=== PATIENT | male | born 1950 | race Caucasian/White ===

== ENCOUNTER → 2016-11-02 | Outpatient (CLI) | payer MEDICARE ==
--- NOTE | 2016-11-02 17:26 | US ---
EXAMINATION TYPE: US abdomen complete DATE OF EXAM: 11/02/2016 COMPARISON: NONE CLINICAL HISTORY: R10.10 Abdominal Pain. Right abdominal pain; smoker x years EXAM MEASUREMENTS: Liver Length: 10.7 cm Gallbladder Wall: 0.1 cm CBD: 0.4 cm Spleen: 9.2 cm Right Kidney: 10.5 x 5.3 x 4.8 cm Left Kidney: 10.0 x 5.3 x 6.3 cm Pancreas: tail obscured by overlying bowel gas Liver: no masses seen Gallbladder: wnl Evidence for sonographic Fisher's sign: No CBD: wnl Spleen: wnl Right Kidney: No hydronephrosis or masses seen Left Kidney: No hydronephrosis or masses seen Upper IVC: wnl Abd Aorta: size is wnl, but intimal thickening is noted at lower aorta. IMPRESSION: No significant abnormality seen.
== END | disposition home or self-care (01) ==
LOC: RADUSWWP 16:15
PROVIDERS: ATTEND Family Medicine
DX: R10.10 Upper abdominal pain, unspecified (principal)
CPT/HCPCS: 76700

== ENCOUNTER 2017-11-14 08:25 | Day surgery (SDC) | payer MEDICARE, OTHER ==
[2017-11-13 11:48] VITALS: BMI 21.4
[2017-11-14] MEDS ORDERED: LIDOCAINE 1% 20 ML VIAL (10MG/ML) FOR IV START INTRADERMA PRN (08:31)
[2017-11-14] MEDS ORDERED: LACTATED RINGERS 1,000 ML IV SCH (08:45)
[2017-11-14 09:01] VITALS: TEMP 98.2
[2017-11-14] MEDS ORDERED: PROPOFOL 10 MG/ML 20 ML VIAL IV ONE (09:52)
[2017-11-14] MEDS ORDERED: IV FLUID CONTINUATION 1,000 ML IV ONE (10:21)
--- NOTE | 2017-11-14 10:25 | P.PCN ---
Date of Procedure: 11/14/17 Procedure(s) Performed: Procedure: Total colonoscopy. Preoperative diagnosis: Screening for neoplasia. Postoperative diagnosis: Diverticulosis with no evidence of acute diverticulitis , strictures, polyps or cancer. Preparation: HalfLytely prep. Sedation: Was provided by anesthesia. Brief clinical history: The patient is a 67-year-old male who is scheduled for this evaluation for screening for neoplasia because of history of polyps. His last exam was around 5 years ago. The patient has no abdominal complaints, bleeding or anemia. Procedure: With the patient on his left lateral decubitus position and after informed consent and adequate sedation, the perianal area was inspected and it did not show any fissures or fistulas. There were no masses felt on digital rectal examination. The Olympus CFQ 160L video colonoscope was then inserted in the rectum in the usual fashion and advanced to the cecum. There were multiple diverticular orifices seen scattered in the sigmoid with no evidence of acute diverticulitis or strictures. The mucosa appeared healthy. No polyps or tumors were seen. I retroflexed the endoscope in the rectum before the endoscope was withdrawn. The patient tolerated the procedure well. Plan: The patient was reassured. Discussed dietary measures. He will follow up with you as planned and I recommended repeat exam in 5 years.
[2017-11-14 10:37] VITALS: BP 140/80; PULSE 87; RESP 18
== END 2017-11-14 10:56 | disposition home or self-care (01) ==
LOC: ORWHC2ENDO 08:25
DX: Z12.11 Encounter for screening for malignant neoplasm of colon (principal); M19.90 Unspecified osteoarthritis, unspecified site; Z86.010 Personal history of colon polyps; E78.5 Hyperlipidemia, unspecified; F17.200 Nicotine dependence, unspecified, uncomplicated; Z79.82 Long term (current) use of aspirin
CPT/HCPCS: 45378; J2704

== ENCOUNTER 2020-10-21 10:50 | Day surgery (SDC) | payer MEDICARE ==
[2020-10-20 09:37] VITALS: BMI 20.7
[~2020-10-21 10:50] MED LIST: LACTATED RINGERS 1,000 ML IV SCH; MOXIFLOXACIN HCL 0.5% DROPS 3 ML BTL OP PRN; TETRACAINE 0.5% OPHTH (PF) DROPS 4 ML BTL OP PRN; TIMOLOL 0.5% OPHTH DROPS 5 ML BTL OP PRN
[2020-10-21 11:32] VITALS: RESP 16; TEMP 97.6
[2020-10-21] MEDS: PHENYLEPHRINE 2.5% OPHTH DRP 2ML OP PRN ×3 (11:35→11:51)
[2020-10-21] MEDS: CYCLOPENTOLATE 1% OPHTH SOLN 2 ML BTL OP PRN ×3 (11:40→11:53)
[2020-10-21] MEDS ORDERED: fentaNYL (PF) 50 MCG/ML 2 ML AMP ONE (12:15)
[2020-10-21] MEDS ORDERED: MIDAZOLAM 2 MG/2 ML VIAL ONE (12:15)
[2020-10-21] MEDS ORDERED: EPINEPHrine (PF) 0.3 ML in BALANCED SALT IRRIG SOLN COMB2 500 ML IRRIGATION ONE (12:24)
[2020-10-21] MEDS ORDERED: BALANCED SALT IRRIG SOLN COMB2 15 ML IRRIG.SOLN INTRAOCULA ONE (12:25)
[2020-10-21] MEDS ORDERED: LIDOCAINE 1% (PF) 10MG/ML VIAL MISCELLANE ONE (12:25)
[2020-10-21] MEDS ORDERED: DUOVISC KIT (GREEN BOX) INTRAOCULA ONE (12:25)
--- NOTE | 2020-10-21 12:47 | P.OP ---
Date of Procedure: 10/21/20 Preoperative Diagnosis: NS & CS Postoperative Diagnosis: same Procedure(s) Performed: PIOL< OD Implants: MX60E 19.50 Anesthesia: MAC Surgeon: Rufino Suarez Pathology: none sent Condition: stable Disposition: same day Indications for Procedure: blurry vision Operative Findings: no complications
[2020-10-21 13:08] VITALS: BP 116/75; PULSE 64
--- NOTE | 2020-10-22 09:20 | OP ---
OPERATIVE REPORT DATE OF SERVICE: 10/21/2020 SURGEON: Dr. Rufino Suarez PREOPERATIVE DIAGNOSIS: Nuclear sclerosis. Cortical sclerosis. POSTOPERATIVE DIAGNOSIS: Same. OPERATION: Clear cornea phacoemulsification of cataract right/OD eye. ESTIMATED BLOOD LOSS: Zero. SPECIMEN TAKEN: None. NARRATIVE: After obtaining the appropriate consent, the patient was brought to the Operating Room where the patient was placed under cardiac monitoring and prepped and draped in the usual sterile manner. At the 11 o'clock position a 15 degree super sharp blade was used to create a paracentesis followed by instillation of 1% Xylocaine MPF 50:50 mix with BSS into the anterior chamber. This was followed by DuoVisc to stabilize the anterior chamber. At the 9 o'clock position a self-sealing corneal flap incision was created using 2.8 mm anel keratome. A cystotome was used to initiate a continuous tear capsulorrhexis which was completed with the Utrata forceps. A Binkhorst cannula was used to hydrodissect the lens nucleus followed by hydrodelineation. Phacoemulsification of the lens was performed utilizing phacochop in 19.55 seconds at 19% power. The remaining cortical material was removed using the irrigation aspiration mode followed by additional 1% Xylocaine MPF into the anterior chamber followed by viscoelastic to stabilize the capsular bag. A [employer] MX 60E 19.5 diopter posterior chamber lens was placed into the capsular bag without difficulty. The remaining viscoelastic material was removed from the anterior chamber with the irrigation/aspiration. Balanced salt solution was used to normalize the intraocular pressure. The incision was checked for watertight integrity. The patient then received two drops of 0.5% timolol followed by two drops Vigamox, was lightly patched and shielded in the usual manner. There were no complications from the procedure. The patient tolerated the procedure well and was returned to recovery in good condition. MMODL / IJN: [id number] /
== END 2020-10-21 13:29 | disposition home or self-care (01) ==
LOC: OR 10:50
PROVIDERS: ATTEND Ophthalmology
DX: H25.11 Age-related nuclear cataract, right eye (principal); M10.9 Gout, unspecified; M19.90 Unspecified osteoarthritis, unspecified site; H52.13 Myopia, bilateral; H17.9 Unspecified corneal scar and opacity; H25.12 Age-related nuclear cataract, left eye; H52.223 Regular astigmatism, bilateral; H52.4 Presbyopia; Z79.82 Long term (current) use of aspirin; Z98.890 Other specified postprocedural states; Z87.891 Personal history of nicotine dependence
CPT/HCPCS: 66984; C1780; J2250; J0171; J3010; J2001

== ENCOUNTER 2020-11-13 07:04 | Day surgery (SDC) | payer MEDICARE ==
[2020-11-10 09:49] VITALS: BMI 20.7
[~2020-11-13 07:04] MED LIST changes: +CHLORPHEN-HYDROcod 8-10mg/5ml 5 ML ORAL.SYRG PO PRN; +DEXAMETHASONE SOD PHOSPHATE 4 MG/ML 1 ML VIAL IV ONE; +HYDROmorphone 0.5 MG/0.5 ML SYRINGE IVP PRN; +LIDOCAINE 1% (10MG/ML) FOR IV START INTRADERMA PRN; +MIDAZOLAM 2 MG/2 ML VIAL IV PRN; +ONDANSETRON 4 MG/2 ML VIAL IVP ONE; +guaiFENesin-DM 100-10MG/5ML 10 ML CUP PO PRN
[2020-11-13] MEDS: CYCLOPENTOLATE 1% OPHTH SOLN 2 ML BTL OP PRN ×3 (07:27→07:39)
[2020-11-13] MEDS: PHENYLEPHRINE 2.5% OPHTH DRP 2ML OP PRN ×3 (07:30→07:42)
[2020-11-13 07:31] VITALS: TEMP 97.7
[2020-11-13] MEDS ORDERED: MIDAZOLAM 2 MG/2 ML VIAL ONE (08:25)
[2020-11-13] MEDS ORDERED: EPINEPHrine (PF) 0.3 ML in BALANCED SALT IRRIG SOLN COMB2 500 ML IRRIGATION ONE (08:39)
[2020-11-13] MEDS ORDERED: BALANCED SALT IRRIG SOLN COMB2 15 ML IRRIG.SOLN IRRIGATION ONE (08:42)
[2020-11-13] MEDS ORDERED: DUOVISC KIT (GREEN BOX) INTRAOCULA ONE (08:42)
[2020-11-13] MEDS ORDERED: LIDOCAINE 1% (PF) 10MG/ML VIAL SQ ONE (08:42)
--- NOTE | 2020-11-13 08:59 | P.OP ---
Date of Procedure: 11/13/20 Preoperative Diagnosis: NS Postoperative Diagnosis: same Procedure(s) Performed: PIOL, OS Implants: MX60E 22.00 Anesthesia: MAC Surgeon: Rufino Suarez Pathology: none sent Condition: stable Disposition: same day Indications for Procedure: same Operative Findings: no complicatinos
[2020-11-13 09:20] VITALS: BP 144/79; PULSE 66; RESP 16
--- NOTE | 2020-11-13 18:17 | OP ---
OPERATIVE REPORT DATE OF SURGERY: 11/13/2020 PREOPERATIVE DIAGNOSIS: Nuclear sclerosis. POSTOPERATIVE DIAGNOSIS: Nuclear sclerosis. OPERATION: Phacoemulsification of cataract and intraocular lens implant of the left eye. ESTIMATED BLOOD LOSS: Zero. SPECIMEN TAKEN: None. NARRATIVE: After obtaining the appropriate consent, the patient was brought to the Operating Room where the patient was placed under cardiac monitoring and prepped and draped in the usual sterile manner. At the 5 o'clock position a 15 degree super sharp blade was used to create a paracentesis followed by instillation of 1% Xylocaine MPF 50:50 mix with BSS into the anterior chamber. This was followed by Duovisc to stabilize the anterior chamber. At the 3 o'clock position a self-sealing corneal flap incision was created using 2.8 mm anel keratome. A cystotome was used to initiate a continuous tear capsulorrhexis which was completed with the Utrata forceps. A Binkhorst cannula was used to hydrodissect the lens nucleus followed by hydrodelineation. Phacoemulsification of the lens was performed utilizing phacochop in 22.44 seconds at 20% power. The remaining cortical material was removed using the irrigation aspiration mode followed by additional 1% Xylocaine MPF into the anterior chamber followed by viscoelastic to stabilize the capsular bag. A [employer] MX60E 22.0 diopters posterior chamber lens was placed into the capsular bag without difficulty. The remaining viscoelastic material was removed from the anterior chamber with the irrigation/aspiration. Balanced salt solution was used to normalize the intraocular pressure. The incision was checked for watertight integrity. The patient then received two drops of 0.5% timolol followed by two drops Vigamox, was lightly patched and shielded in the usual manner. There were no complications from the procedure. The patient tolerated the procedure well and was returned to recovery in good condition. MMODL / IJN: [id number] /
== END 2020-11-13 09:42 | disposition home or self-care (01) ==
LOC: OR 07:04
PROVIDERS: ATTEND Ophthalmology
DX: H25.12 Age-related nuclear cataract, left eye (principal); F17.210 Nicotine dependence, cigarettes, uncomplicated; M10.9 Gout, unspecified; Z79.82 Long term (current) use of aspirin
CPT/HCPCS: 66984; C1780; J2250; J0171; J2001

== ENCOUNTER → 2021-01-07 | Outpatient (CLI) | payer MEDICARE ==
--- NOTE | 2021-01-07 11:04 | US ---
EXAMINATION TYPE: US abdomen complete DATE OF EXAM: 01/07/2021 COMPARISON: NONE CLINICAL HISTORY: R16.0 Hepatomegaly. EXAM MEASUREMENTS: Liver Length: 13.2 cm Gallbladder Wall: 0.3 cm CBD: 0.3 cm Spleen: 9.8 cm Right Kidney: 11.3x5.6x4.4 cm Left Kidney: 10.6x5.2x5.2 cm Pancreas: wnl Liver: wnl Gallbladder: 0.6cm polyp. Evidence for sonographic Fisher's sign: No CBD: wnl Spleen: wnl Right Kidney: Inf cyst with small amount of debris 1.4x1.3x1.5cm Left Kidney: wnl Upper IVC: wnl Abd Aorta: Plaque seen throughout IMPRESSION: 1. Small polyp or adherent stone may be present within the gallbladder. 2. Complex right ovarian cyst inferior pole
== END | disposition home or self-care (01) ==
LOC: RADUSWWP 10:22
PROVIDERS: ATTEND Family Medicine
DX: N28.1 Cyst of kidney, acquired (principal)
CPT/HCPCS: 76700

== ENCOUNTER → 2021-01-28 | Outpatient (CLI) | payer MEDICARE ==
[2021-01-29 13:05] LABS: Pork IgE Class CLASS 0; Yeast Bakers/Brew IgE <0.10 kU/L (<0.10); Yeast Bakers/Brew IgE Class CLASS 0
[2021-01-29 13:06] LABS: Avocado Class CLASS 0; Banana IgE Class CLASS 0; Beef IgE <0.10 kU/L (<0.10); Beef IgE Class CLASS 0; Chicken IgE Class CLASS 0; Cow's Milk IgE Class CLASS 0; Egg White IgE <0.10 kU/L (<0.10); Hazelnut IgE <0.10 kU/L (<0.10); Hazelnut IgE Class CLASS 0; Kiwi IgE <0.10 kU/L (<0.10); Kiwi IgE Class CLASS 0; Latex IgE Class CLASS 0; Peanut IgE <0.10 kU/L (<0.10); Potato IgE <0.10 kU/L (<0.10); Potato IgE Class CLASS 0; Soybean IgE <0.10 kU/L (<0.10)
== END | disposition home or self-care (01) ==
LOC: LABWHC1 10:59
PROVIDERS: ATTEND Otolaryngology
DX: L50.0 Allergic urticaria (principal)
CPT/HCPCS: 36415; 86003

== ENCOUNTER → 2021-03-12 | Outpatient (CLI) | payer MEDICARE ==
[2021-03-12 18:53] LABS: Protein, Total 6.8 g/dL (6.2-8.2)
[2021-03-12 19:09] LABS: Albumin 4.1 g/dL (3.8-4.9); Albumin/Globulin Ratio 1.59 (1.60-3.17); Anion Gap 8.5 mmol/L (10.00-18.00); BUN/Creat Ratio 19.3 Ratio (12.00-20.00); Blood Urea Nitrogen 13.3 mg/dL (9.0-27.0); C Reactive Protein 1.1 mg/dL (0.00-0.80); Calcium 9.5 mg/dL (8.7-10.3); Carbon Dioxide 29.3 mmol/L (20.0-27.5); Globulin 2.6 g/dL (1.6-3.3); Non-African American GFR(CKD) 94.9 (60.0-200.0); Potassium 4.4 mmol/L (3.5-5.5); Total Bilirubin 0.4 mg/dL (0.30-1.20); Total Protein 6.7 g/dL (6.2-8.2)
[2021-03-12 20:21] LABS: Basophils # (A) 0.02 X 10*3/uL (0.00-0.10); Basophils % (A) 0.2 %; Eosinophils # (A) 0.08 X 10*3/uL (0.04-0.35); Eosinophils % (A) 0.7 %; HGB 11.6 g/dL (13.0-17.0); Lymphocytes # (A) 3.38 X 10*3/uL (0.90-5.00); Lymphocytes % (A) 27.6 %; MCH 29.7 pg (27.0-32.0); MCHC 31.4 g/dL (32.0-37.0); MCV 94.6 fL (80.0-97.0); Mean Platelet Volume 9.7 fL (9.5-12.2); Monocytes # (A) 1.04 X 10*3/uL (0.20-1.00); Monocytes % (A) 8.5 %; Neutrophils # (A) 7.58 X 10*3/uL (1.80-7.70); Neutrophils % (A) 61.9 %; Platelet Count 353 X 10*3/uL (140-440); RBC 3.91 X 10*6/uL (4.40-5.60); RDW 14.6 % (11.5-14.5); WBC 12.23 X 10*3/uL (4.50-10.00)
[2021-03-13 00:22] LABS: Erythrocyte Sedimentation Rate 24 mm/Hr (0-20)
== END | disposition home or self-care (01) ==
LOC: LABWHC1 10:28
PROVIDERS: ATTEND Internal Medicine
DX: T78.3XXA Angioneurotic edema, initial encounter (principal)
CPT/HCPCS: 36415; 80053; 84165; 84443; 85025; 85652; 86038; 86140; 86160

== ENCOUNTER → 2021-03-25 | Outpatient (CLI) | payer MEDICARE ==
[2021-03-25 08:37] LABS: African American GFR (CKD) >90 (>60 ml/min/1.73 sqM); Blood Urea Nitrogen 15 mg/dL (9-20); Non-African American GFR(CKD) 86 (>60 ml/min/1.73 sqM)
--- NOTE | 2021-03-25 10:10 | CT ---
EXAMINATION TYPE: CT neck chest w con DATE OF EXAM: 03/25/2021 COMPARISON: None HISTORY: 70 year-old male T78.3XXA Angioneurotic edema, initial encounter, weight loss TECHNIQUE: Contiguous axial scanning of the soft tissues of the neck and chest performed with IV Cont rast, patient injected with 100 mL of Isovue 300. Coronal/sagittal reconstructions performed. CT DLP: 622.1 mGycm Automated exposure control for dose reduction was used. FINDINGS: NECK: Visualized intracranial structures, orbits and globes, and mastoid air cells appear clear. Mild mucos al thickening floor of the left maxillary sinus. Mild mucosal thickening posterior right ethmoid air cells. Leftward nasal septal deviation. Nasal pharynx shows no gross abnormality. Asymmetric soft tissue in the region of the left tubal and palatine tonsils, refer to axial image 54 warrants direct visualization to exclude mucosal lesion/mass. Dental amalgam artifact. Epiglottis and prevertebral soft tissues are satisfactory. Glottic and subglottic structures as well as the upper tracheal column appear clear. Chest reported separately. Right supraclavicular lymphadenopathy measuring up to 2.1 cm. This extends up to the level of the cri coid cartilage. Mild generalized anasarca change. The submandibular glands appear satisfactory. Thyroid glands are mildly atrophic. Thyroid gland shows no gross abnormality. Bones: Hypertrophic facet and uncovertebral joint arthropathy throughout. Degenerative grade 1 fior listhesis C2-C3 and C3-C4. Degenerative grade 1 retrolisthesis C5-C6 with reversal of the normal cerv ical lordosis. Degenerative change right sternoclavicular joint. CHEST: Heart normal size without pericardial effusion. Ascending aorta border and ectatic at 3.6 cm. Variant direct takeoff of the left vertebral artery dir ectly from the aortic arch. Scattered mild atelectatic change lower descending thoracic aorta. There is diffuse mediastinal lymphadenopathy. Conglomerate paratracheal milly mass shows heterogeneou s enhancement with some areas of central necrosis and extends anteriorly to the prevascular space hipolito suring up to 6.9 x 3.6 cm. Precarinal, subcarinal, right hilar conglomerate milly mass measures up to 9.5 x 8.0 cm. This has extrinsic compression and probably invasion of the SVC and slitlike narrowing to near occlusion. There is mass effect with narrowing onto the right main pulmonary artery and prob ably direct invasion into the lumen of the right interlobar pulmonary artery at the hilum measuring 3 .2 cm. Branches to the right upper lobe are severely narrowed. Branches to the right middle lobe are likely also severely narrowed. Suspect occlusion of the right superior pulmonary vein secondary to the mass. Additional left superior mediastinal lymphadenopathy measuring up to 3.5 cm. Pericardiac soft tissue adjacent to the apex of the heart measures 1.4 cm. Anterior pericardiac node measures 1.6 cm. Spiculated anterior right upper lobe mass measures 3.2 cm. Reticular change in the right upper lobe l ikely venous congestion. There is some additional patchy change anterior right midlung likely pneumon itis, axial image 32. Small right pleural effusion. Reticular change in the lower lungs could represent scarring. Backgroun d mild to moderate emphysema. The visualized upper abdomen, there is an abnormal 1.3 cm soft tissue nodule located just above the l eft adrenal gland. Additional 1.5 cm soft tissue nodule anterior to the spleen. Bones: [facility] mid and lower thoracic spine. Degenerative changes right sternoclavicular joint. IMPRESSION: NECK: 1. Asymmetrically increased soft tissue in the region of the left tubal and palatine tonsils warrants direct visualization to exclude a mucosal lesion/mass. 2. Right supraclavicular lymphadenopathy measuring up to 2.1 cm extending up to the level of the cric oid cartilage. Metastatic disease is suggested. CHEST: 3. Conglomerate mediastinal and right hilar lymphadenopathy with milly masses measuring up to nearly 10 cm. There is mass effect with significant narrowing and near occlusion of the SVC. Additional extr insic compression mildly narrowing the right main pulmonary artery, significant narrowing of right up per lobe and middle lobe arterial branches, and probably direct invasion into and narrowing the right interlobar segment of the right pulmonary artery. Probable occlusion right superior pulmonary vein. 4. Spiculated anterior right upper lobe mass measures 3.2 cm. 5. Reticular changes in the right upper lobe likely due to venous congestion. Patchy change anterior right midlung probably post obstructive pneumonitis. Small right pleural effusion. 6. In the upper abdomen, suspicious 1.3 cm soft tissue deposit just above the left adrenal gland and a 1.5 cm soft tissue nodule anterior to the spleen.
== END | disposition home or self-care (01) ==
LOC: RADCTMAIN 08:05
PROVIDERS: ATTEND Otolaryngology
DX: T78.3XXA Angioneurotic edema, initial encounter (principal); R91.8 Other nonspecific abnormal finding of lung field; R59.1 Generalized enlarged lymph nodes; J90 Pleural effusion, not elsewhere classified; I28.8 Other diseases of pulmonary vessels
CPT/HCPCS: 82565; 84520; 70491; 71260; 36415; Q9967

== ENCOUNTER 2021-03-26 11:07 | Inpatient (IN) | payer MEDICARE ==
[2021-03-26 12:53] LABS: Basophils % (A) 0 %; Eosinophils # (A) 0.1 k/uL (0-0.7); Eosinophils % (A) 1 %; HGB 11.9 gm/dL (13.0-17.5); Lymphocytes # (A) 1.6 k/uL (1.0-4.8); Lymphocytes % (A) 12 %; MCH 31.1 pg (25.0-35.0); MCV 94.1 fL (80.0-100.0); Monocytes # (A) 0.5 k/uL (0-1.0); Monocytes % (A) 4 %; Neutrophils # (A) 10.8 k/uL (1.3-7.7); Neutrophils % (A) 83 %; Platelet Count 558 k/uL (150-450); RBC 3.83 m/uL (4.30-5.90); RDW 13.7 % (11.5-15.5); WBC 13.1 k/uL (3.8-10.6)
--- NOTE | 2021-03-26 13:02 | ED ---
General Adult HPI - General Chief complaint: Recheck/Abnormal Lab/Rx Stated complaint: abnormal CT Source: patient Mode of arrival: ambulatory - History of Present Illness Initial comments: 70-year-old male with no past medical history presents emergency Department with facial swelling and left hand swelling. He states his symptoms have been going on since December. He originally was seen at an urgent care that place him on steroids for suspected angioedema. He was then referred to an ENT. Has been following with Dr. Padron and has been intermittently been on steroids. States that his symptoms will improve for a short period time however when the course of steroids is up, his symptoms returned. He also admits to some itchiness. His sister is an oncology nurse. She requested that a CT be performed of his chest to look for the etiology of his symptoms. CT was performed yesterday and was found to be abnormal. Patient was called with results and told that he needed to come into the emergency department. Patient denies any acute symptoms. CT scan the patient brings with him demonstrates a conglomerate of mediastinal and right hilar lymphadenopathy. It measures up to 10 cm. Mass effect on the SVC. There is narrowing of the right main pulmonary artery with direct invasion. Occlusion of the right superior pulmonary vein. Spiculated right upper lobe mass measuring 3.2 cm. Reticular changes in the right upper lobe. Suspicious 1.3 cm soft tissue deposited above the left adrenal gland and 1.5 cm soft tissue nodule anterior distal spleen - Related Data Home Medications Medication Instructions Recorded Confirmed Fish Oil/Dha/Epa [Fish Oil 1,200 1 cap PO DAILY 11/13/17 04/12/21 mg Fish Oil] Carboxymethylcellulose Sodium 1 drop BOTH EYES DAILY PRN 03/26/21 04/12/21 [Refresh Tears] Famotidine [Pepcid] 20 mg PO BID 03/26/21 04/12/21 Previous Rx's Medication Instructions Recorded Dexamethasone [Decadron] 4 mg PO Q8H #90 tablet 03/30/21 amLODIPine [Norvasc] 10 mg PO DAILY #30 tablet 03/30/21 Allergies Allergy/AdvReac Type Severity Reaction Status Date / Time No Known Allergies Allergy Verified 04/12/21 11:34 Review of Systems ROS Statement: Those systems with pertinent positive or pertinent negative responses have been documented in the HPI. ROS Other: All systems not noted in ROS Statement are negative. Past Medical History Past Medical History: Osteoarthritis (OA) Additional Past Medical History / Comment(s): GOUT, HX OF POSITIVE TB SKIN TEST WITH TX (1996). angel cataracts History of Any Multi-Drug Resistant Organisms: None Reported Past Surgical History: Hernia Repair, Orthopedic Surgery Additional Past Surgical History / Comment(s): ANGEL CARPAL TUNNEL , ANGEL KNEE SURGERY. rt cataract 10/21/20 Past Anesthesia/Blood Transfusion Reactions: No Reported Reaction Past Psychological History: No Psychological Hx Reported Smoking Status: Current every day smoker Past Alcohol Use History: Daily Past Drug Use History: None Reported - Past Family History Father Family Medical History: Cancer Additional Family Medical History / Comment(s): COLON CANCER Brother(s) Family Medical History: Cancer Additional Family Medical History / Comment(s): BLADDER CANCER General Exam General appearance: alert, in no apparent distress Head exam: Present: atraumatic, normocephalic, other (soft tissue swelling to face) Eye exam: Present: normal appearance, PERRL, EOMI. Absent: scleral icterus, conjunctival injection, periorbital swelling ENT exam: Present: normal exam, mucous membranes moist Neck exam: Present: normal inspection. Absent: tenderness, meningismus, lymphadenopathy Respiratory exam: Present: normal lung sounds bilaterally. Absent: respiratory distress, wheezes, rales, rhonchi, stridor Cardiovascular Exam: Present: regular rate, normal rhythm, normal heart sounds. Absent: systolic murmur, diastolic murmur, rubs, gallop, clicks GI/Abdominal exam: Present: soft, normal bowel sounds. Absent: distended, tenderness, guarding, rebound, rigid Extremities exam: Present: full ROM, normal capillary refill, other (soft tissue swelling to upper extremities, left >right). Absent: tenderness, pedal edema, joint swelling, calf tenderness Back exam: Present: normal inspection Neurological exam: Present: alert, oriented X3, CN II-XII intact Psychiatric exam: Present: normal affect, normal mood Skin exam: Present: warm, dry, intact, normal color. Absent: rash Course Vital Signs 03/26/21 03/26/21 03/26/21 11:16 13:26 15:58 Temperature 97.0 F L Pulse Rate 86 80 Respiratory 18 18 18 Rate Blood Pressure 193/96 170/86 O2 Sat by Pulse 99 98 Oximetry - Reevaluation(s) Reevaluation #1: 03/26/21 13:02 1221 - Dr. Givens feels this needs higher level of care. Dr. dias paged at this time Reevaluation #2: Spoke with Dr. Richards - states this is CT surgery issue. Recommends paging them 03/26/21 13:01 1302 - spoke with Payal Lam who will speak with Dr. Dias. Recommends consul ting Dr. Duarte. Dr. Duarte in the department and agrees to consult 03/26/21 13:05 Reevaluation #3: Dr. Call aware of patient in ED. States patient does not have surgical co ndition 03/26/21 1320 Reevaluation #4: 03/26/[address] Chu - aware of consult Reevaluation #5: Dr. Givens aware of patient staying at 03/26/21 1359 EKG Findings - EKG Comments: EKG Findings:: EKG demonstrates normal sinus rhythm with a ventricular rate of 67. NH interval 164. QRS 86. QTC of 390. No acute ST segment elevation. There is some peaked T waves in V3 and V4 Medical Decision Making - Medical Decision Making Upon arrival patient was placed into room 5. A thorough history and physical exam was performed. Laboratory studies were conducted. I did speak with multiple providers in regards the patient's symptoms. Dr. Dias does recommends [address] Chu will be consultation for possible radiation. Dr. Duarte evalutes the patient in emergency department and will performed by the patient is more stable. Patient to the treatment plan and is awaiting a bed on the floor - Lab Data Result diagrams: 03/30/21 07:41 03/30/21 07:41 Lab Results 03/26/21 03/26/21 03/26/21 Range/Units 12:45 12:45 12:45 WBC 13.1 H (3.8-10.6) k/uL RBC 3.83 L (4.30-5.90) m/uL Hgb 11.9 L (13.0-17.5) gm/dL Hct 36.0 L (39.0-53.0) % MCV 94.1 (80.0-100.0) fL MCH 31.1 (25.0-35.0) pg MCHC 33.0 (31.0-37.0) g/dL RDW 13.7 (11.5-15.5) % Plt Count 558 H (150-450) k/uL MPV 7.0 Neutrophils % 83 % Lymphocytes % 12 % Monocytes % 4 % Eosinophils % 1 % Basophils % 0 % Neutrophils # 10.8 H (1.3-7.7) k/uL Lymphocytes # 1.6 (1.0-4.8) k/uL Monocytes # 0.5 (0-1.0) k/uL Eosinophils # 0.1 (0-0.7) k/uL Basophils # 0.0 (0-0.2) k/uL PT 17.0 H (9.0-12.0) sec INR 1.7 H (<1.2) APTT 27.0 (22.0-30.0) sec Sodium 130 L (137-145) mmol/L Potassium 4.5 (3.5-5.1) mmol/L Chloride 96 L (98-107) mmol/L Carbon Dioxide 25 (22-30) mmol/L Anion Gap 9 mmol/L BUN 17 (9-20) mg/dL Creatinine 0.65 L (0.66-1.25) mg/dL Est GFR (CKD-EPI)AfAm >90 (>60 ml/min/1.73 sqM) Est GFR (CKD-EPI)NonAf >90 (>60 ml/min/1.73 sqM) Glucose 109 H (74-99) mg/dL Calcium 9.5 (8.4-10.2) mg/dL Magnesium 2.2 (1.6-2.3) mg/dL Total Bilirubin 0.5 (0.2-1.3) mg/dL AST 24 (17-59) U/L ALT 16 (4-49) U/L Alkaline Phosphatase 79 (38-126) U/L Troponin I (0.000-0.034) ng/mL NT-Pro-B Natriuret Pep pg/mL Total Protein 7.5 (6.3-8.2) g/dL Albumin 3.9 (3.5-5.0) g/dL Lipase 385 H (23-300) U/L 03/26/21 03/26/21 Range/Units 12:45 12:45 WBC (3.8-10.6) k/uL RBC (4.30-5.90) m/uL Hgb (13.0-17.5) gm/dL Hct (39.0-53.0) % MCV (80.0-100.0) fL MCH (25.0-35.0) pg MCHC (31.0-37.0) g/dL RDW (11.5-15.5) % Plt Count (150-450) k/uL MPV Neutrophils % % Lymphocytes % % Monocytes % % Eosinophils % % Basophils % % Neutrophils # (1.3-7.7) k/uL Lymphocytes # (1.0-4.8) k/uL Monocytes # (0-1.0) k/uL Eosinophils # (0-0.7) k/uL Basophils # (0-0.2) k/uL PT (9.0-12.0) sec INR (<1.2) APTT (22.0-30.0) sec Sodium (137-145) mmol/L Potassium (3.5-5.1) mmol/L Chloride (98-107) mmol/L Carbon Dioxide (22-30) mmol/L Anion Gap mmol/L BUN (9-20) mg/dL Creatinine (0.66-1.25) mg/dL Est GFR (CKD-EPI)AfAm (>60 ml/min/1.73 sqM) Est GFR (CKD-EPI)NonAf (>60 ml/min/1.73 sqM) Glucose (74-99) mg/dL Calcium (8.4-10.2) mg/dL Magnesium (1.6-2.3) mg/dL Total Bilirubin (0.2-1.3) mg/dL AST (17-59) U/L ALT (4-49) U/L Alkaline Phosphatase (38-126) U/L Troponin I <0.012 (0.000-0.034) ng/mL NT-Pro-B Natriuret Pep 168 pg/mL Total Protein (6.3-8.2) g/dL Albumin (3.5-5.0) g/dL Lipase (23-300) U/L Disposition Clinical Impression: Lung mass, Mediastinal mass, SVC syndrome Disposition: ADMITTED IP TO THIS HOSP Condition: Serious Is patient prescribed a controlled substance at d/c from ED?: No Decision to Admit Reason: Admit from EC Decision Date: 03/26/21 Decision Time: 13:48
[2021-03-26] MEDS ORDERED: DEXAMETHASONE SOD PHOSPHATE 10 MG/ML 1 ML VIAL IVP STA (13:11)
[2021-03-26 13:17] LABS: ALT 16 U/L (4-49); AST 24 U/L (17-59); African American GFR (CKD) >90 (>60 ml/min/1.73 sqM); Albumin 3.9 g/dL (3.5-5.0); Alkaline Phosphatase 79 U/L (38-126); Anion Gap 9 mmol/L; Blood Urea Nitrogen 17 mg/dL (9-20); Calcium 9.5 mg/dL (8.4-10.2); Carbon Dioxide 25 mmol/L (22-30); Chloride 96 mmol/L (98-107); Glucose 109 mg/dL (74-99); Lipase 385 U/L (23-300); Magnesium 2.2 mg/dL (1.6-2.3); Non-African American GFR(CKD) >90 (>60 ml/min/1.73 sqM); Potassium 4.5 mmol/L (3.5-5.1); Sodium 130 mmol/L (137-145); Total Bilirubin 0.5 mg/dL (0.2-1.3); Total Protein 7.5 g/dL (6.3-8.2)
[2021-03-26 13:27] LABS: INR 1.7 (<1.2)
[2021-03-26] MEDS ORDERED: NALOXONE 0.4 MG/ML 1 ML VIAL IV PRN (14:09)
--- NOTE | 2021-03-26 14:54 | P.CNPUL ---
History of Present Illness Consult date: 03/26/21 Requesting physician: Vaughn Givens Reason for consult: dyspnea, abnormal CXR/CT Chief complaint: Shortness of breath, facial and right upper extremity swelling History of present illness: This is a very pleasant 70-year-old male patient who follows with the [facility] for his primary care needs. He has a history of gout, hyperlipidemia, chronic tobacco dependence of greater than 40 years. Approximately the first part of December 2020 the patient developed facial swelling and edema of the right neck and upper extremity. There was some concern regarding possible ALLERGIES and he had been referred to ear nose and throat physician who was treating him with steroids, Pepcid, Zyrtec without much improvement. The patient's edema continued and a CAT scan of the neck and chest were performed yesterday and the patient was found to have asymmetry with increased soft tissue in the region of the left tubal and palatine tonsils warrants direct visualization to exclude mucosal lesion/mass recommended. Right supraclavicular lymphadenopathy measuring up to 2.1 cm extending to the left of the cricoid cartilage. Metastatic disease is considered. The chest revealed conglomerate mediastinal and right hilar lymphadenopathy with milly masses measuring up to nearly 10 cm. There is mass effect with significant narrowing and near occlusion of the SVC. Additional extrinsic compression mildly narrow in the right main pulmonary artery, significant narrowing of the right upper lobe and middle lobe arterial branches and probably direct invasion into and narrowing of the right interlobar segment of the right pulmonary artery. Probable occlusion of the right superior pulmonary vein. There is a spiculated anterior right upper lobe mass measuring 3.2 cm. Reticular changes in the right upper lobe likely due to venous congestion. Patchy change anterior right midlung probably postobstructive pneumonia. Small right pleural effusion. In the upper abdomen a suspicious 1.3 cm soft tissue deposit just above the left adrenal gland and a 1.5 cm soft tissue nodule anterior to the spleen. The patient was referred to the emergency room today based on these findings. White count 13.1. Hemoglobin 11.9. Platelets 558. INR 1.7. Sodium 1:30. Potassium 4.5. BUN 17. Creatinine 0.65. Glucose 109. AST 24. ALT 16. Lipase 385. BNP 168. Troponin 0.012. He is seen today in consultation in the emergency department. He is currently resting on the stretcher. Awake and alert in no acute distress. Maintaining O2 saturations up to 99% on room air. He's afebrile. Slightly hypertensive. He does have noted right-sided facial right neck, right upper extremity edema. There is some engorged blood vessels on the chest. The patient has had some weight loss but his appetite remains good. No hemoptysis. No significant cough or congestion. Review of Systems REVIEW OF SYSTEMS: CONSTITUTIONAL: Positive for increased edema of the right face and neck and upper extremity Denies any recent significant weight loss or weight gain. EYES: Denies change in vision. EARS, NOSE, MOUTH, THROAT: Denies headaches, denies sore throat. CARDIOVASCULAR: Denies chest pain, palpitations or syncopal episodes. RESPIRATORY: Denies shortness of breath, cough, congestion or hemoptysis. GASTROINTESTINAL: Denies change in appetite, denies abdominal pain GENITOURINARY: Denies hematuria, denies infections. MUSKULOSKELETAL: Denies pain, denies swelling. INTEGUMENTARY: Denies rash, denies eczema. NEUROLOGICAL: Denies recent memory loss, no recent seizure activity. PSYCHIATRIC: Denies anxiety, denies depression. HEMATOLOGIC/LYMPHATIC: Denies anemia, denies enlarged lymph nodes. Past Medical History Past Medical History: Osteoarthritis (OA) Additional Past Medical History / Comment(s): GOUT, HX OF POSITIVE TB SKIN TEST WITH TX (1996). angel cataracts History of Any Multi-Drug Resistant Organisms: None Reported Past Surgical History: Hernia Repair, Orthopedic Surgery Additional Past Surgical History / Comment(s): ANGEL CARPAL TUNNEL , ANGEL KNEE SURGERY. rt cataract 10/21/20 Past Anesthesia/Blood Transfusion Reactions: No Reported Reaction Past Psychological History: No Psychological Hx Reported Smoking Status: Current every day smoker Past Alcohol Use History: Daily Past Drug Use History: None Reported - Past Family History Father Family Medical History: Cancer Additional Family Medical History / Comment(s): COLON CANCER Brother(s) Family Medical History: Cancer Additional Family Medical History / Comment(s): BLADDER CANCER Medications and Allergies Home Medications Medication Instructions Recorded Confirmed Type Aspirin 325 mg PO DAILY PRN 11/13/17 03/26/21 History Fish Oil/Dha/Epa [Fish Oil 1,200 1 cap PO DAILY 11/13/17 03/26/21 History mg Fish Oil] Carboxymethylcellulose Sodium 1 drop BOTH EYES DAILY PRN 03/26/21 03/26/21 History [Refresh Tears] Cetirizine HCl [Zyrtec] 10 mg PO BID 03/26/21 03/26/21 History Famotidine [Pepcid] 20 mg PO BID 03/26/21 03/26/21 History predniSONE See Taper PO DAILY 03/26/21 03/26/21 History Allergies Allergy/AdvReac Type Severity Reaction Status Date / Time No Known Allergies Allergy Verified 03/26/21 13:03 Physical Exam Vitals: Vital Signs Temp Pulse Resp BP Pulse Ox 03/26/21 13:26 18 03/26/21 11:16 97.0 F L 86 18 193/96 99 Intake and Output 03/25/21 03/26/21 03/26/21 22:59 06:59 14:59 Other: Weight 63.503 kg GENERAL EXAM: Alert, very pleasant 70-year-old male patient, on room air, fairly comfortable in no apparent distress. HEAD: Noted edema of the right face and neck. EYES: Normal reaction of pupils, equal size. NOSE: Clear with pink turbinates. THROAT: No erythema or exudates. NECK: Enlarged lymph node palpable on the right neck. No masses, no JVD. CHEST: No chest wall deformity. Some venous engorgement noted on the chest. LUNGS: Equal air entry with no crackles, wheeze, rhonchi or dullness. CVS: S1 and S2 normal with no audible murmur, regular rhythm. ABDOMEN: No hepatosplenomegaly, normal bowel sounds, no guarding or rigidity. SPINE: No scoliosis or deformity SKIN: No rashes CENTRAL NERVOUS SYSTEM: No focal deficits, tone is normal in all 4 extremities. EXTREMITIES: Edema of the right upper extremity. No clubbing, no cyanosis. Peripheral pulses are intact. Results - Laboratory Findings CBC and BMP: 03/26/21 12:45 03/26/21 12:45 PT/INR, D-dimer PT 17.0 sec (9.0-12.0) H 03/26/21 12:45 INR 1.7 (<1.2) H 03/26/21 12:45 Abnormal lab findings: Abnormal Labs 03/26/21 03/26/21 03/26/21 12:45 12:45 12:45 WBC 13.1 H RBC 3.83 L Hgb 11.9 L Hct 36.0 L Plt Count 558 H Neutrophils # 10.8 H PT 17.0 H INR 1.7 H Sodium 130 L Chloride 96 L Creatinine 0.65 L Glucose 109 H Lipase 385 H - Diagnostic Findings CT scan - chest: image reviewed Assessment and Plan Assessment: 1 Right-sided facial, neck and upper extremity edema being treated in the outpatient setting since 12/2020 for possible angioedema however 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 Right supraclavicular lymphadenopathy measuring up to 2.1 cm extending to the left of the cricoid cartilage. Metastatic disease is considered. The chest revealed conglomerate mediastinal and right hilar lymphadenopathy with milly masses measuring up to nearly 10 cm. There is mass effect with significant narrowing and near occlusion of the SVC. Additional extrinsic compression mildly narrow in the right main pulmonary artery, significant narrowing of the right upper lobe and middle lobe arterial branches and probably direct invasion into and narrowing of the right interlobar segment of the right pulmonary artery. Probable occlusion of the right superior pulmonary vein. There is a spiculated anterior right upper lobe mass measuring 3.2 cm. Reticular changes in the right upper lobe likely due to venous congestion. Patchy change anterior right midlung probably postobstructive pneumonia. Small right pleural effusion. In the upper abdomen a suspicious 1.3 cm soft tissue deposit just above the left adrenal gland and a 1.5 cm soft tissue nodule anterior to the spleen. 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 6 Hyperlipidemia Plan: The patient was seen and evaluated CAT scan and labs reviewed Recommend interventional radiology or surgical services to perform biopsy of the right supra-clavicular lymph node for diagnosis and staging Plan is for urgent radiation therapy for the SVC syndrome Currently stable and on room air We will continue to follow and make further recommendations based on his clinical status I, the cosigning physician, performed a history & physical examination of the patient. Lungs sounds are clear. Maintaining good O2 saturations in the 90s on room air. I discussed the assessment and plan of care with my nurse practitioner, Nelli Paige. I attest to the above consultation as dictated by her. Time with Patient: Greater than 30
[2021-03-26] MEDS ORDERED: ARTIFICIAL TEARS-HYPROMELLOSE DROPS 15 ML BTL BOTH EYES PRN (15:54)
[2021-03-26] MEDS ORDERED: HYDROcodone/APAP 5-325MG 1 EACH TAB PO PRN (15:57)
[2021-03-26] MEDS: DEXAMETHASONE SOD PHOSPHATE 10 MG/ML 1 ML VIAL IVP SCH ×3 (17:06→22:51)
[2021-03-26] MEDS: amLODIPine 5 MG TAB PO SCH (17:06)
--- NOTE | 2021-03-26 17:15 | P.CONS ---
History of Present Illness - Reason for Consult Consult date: 03/26/21 SVC syndrome Requesting physician: Alfredo Dias - Chief Complaint facial swelling - History of Present Illness The patient is a 70-year-old male with an approximate 13-bfdd-[id number] smoking history who presents with facial swelling and difficulty breathing when lying flat. Recent workup included a CT scan of the neck and chest revealing significant mediastinal adenopathy with SVC compression worrisome for underlying lung malignancy. The patient reports that for the past 3 months he has developed swelling along his face and neck. At various times, he has noted even puffiness under his eyes. He was initially seen in urgent care, and after a course of steroids his symptoms did seem to improve. Ultimately however, the patient's symptoms again worsened, and he return to urgent care. He was referred to ENT, and he was ordered to undergo a CT scan of the neck and chest on March 25. This revealed a 3.2 cm right upper lung mass, with significant mediastinal adenopathy including a 7 cm prevascular conglomeration, a 9.5 x 8 cm right hilar and precarinal contiguous conglomeration as well as prevascular adenopathy. The disease seem to compress the SVC and potentially even invade this, and also invaded the right pulmonary artery with narrowing of the right upper lobe bronchus. There were a couple of small paracardiac nodes, a 1.3 cm left adrenal nodule and a 1.5 cm nodule anterior to the spleen. A 2.1 cm right supraclavicular lymph node was appreciated, and there is also some asymmetry in the left palatine tonsil. The patient was recommended to proceed to the hospital secondary to this finding. He states that at this time, he is not having significant dyspnea on room air. He is able to lie flat without a choking sensation. He reports no pain in the head, neck or chest. He does note approximate 5 pound weight loss. Review of Systems Constitutional: Denies chills, Denies fever Eyes: denies blurred vision Ears: deny: decreased hearing Cardiovascular: Reports orthopnea, Denies chest pain Respiratory: Reports dyspnea, Denies cough, Denies home oxygen, Denies pleurisy Gastrointestinal: Denies abdominal pain, Denies bloating Musculoskeletal: Denies frequent falls Neurological: Denies aphasia, Denies ataxia, Denies headaches Psychiatric: Denies confusion Past Medical History Past Medical History: Osteoarthritis (OA) Additional Past Medical History / Comment(s): GOUT, HX OF POSITIVE TB SKIN TEST WITH TX (1996). angel cataracts History of Any Multi-Drug Resistant Organisms: None Reported Past Surgical History: Hernia Repair, Orthopedic Surgery Additional Past Surgical History / Comment(s): ANGEL CARPAL TUNNEL , ANGEL KNEE SURGERY. rt cataract 10/21/20 Past Anesthesia/Blood Transfusion Reactions: No Reported Reaction Past Psychological History: No Psychological Hx Reported Smoking Status: Current every day smoker Past Alcohol Use History: Daily Past Drug Use History: None Reported - Past Family History Father Family Medical History: Cancer Additional Family Medical History / Comment(s): COLON CANCER Brother(s) Family Medical History: Cancer Additional Family Medical History / Comment(s): BLADDER CANCER Medications and Allergies Home Medications Medication Instructions Recorded Confirmed Type Aspirin 325 mg PO DAILY PRN 11/13/17 03/26/21 History Fish Oil/Dha/Epa [Fish Oil 1,200 1 cap PO DAILY 11/13/17 03/26/21 History mg Fish Oil] Carboxymethylcellulose Sodium 1 drop BOTH EYES DAILY PRN 03/26/21 03/26/21 History [Refresh Tears] Cetirizine HCl [Zyrtec] 10 mg PO BID 03/26/21 03/26/21 History Famotidine [Pepcid] 20 mg PO BID 03/26/21 03/26/21 History predniSONE See Taper PO DAILY 03/26/21 03/26/21 History Allergies Allergy/AdvReac Type Severity Reaction Status Date / Time No Known Allergies Allergy Verified 03/26/21 13:03 Physical Exam Vitals: Vital Signs Temp Pulse Resp BP Pulse Ox 03/26/21 15:58 80 18 170/86 98 03/26/21 13:26 18 03/26/21 11:16 97.0 F L 86 18 193/96 99 Intake and Output 03/26/21 03/26/21 03/26/21 06:59 14:59 22:59 Other: Weight 63.503 kg - Constitutional General appearance: no acute distress (Mild facial swelling noted) - EENT Eyes: EOMI, PERRLA - Neck Neck: lymphadenopathy (R-SCV lymph node palpable), other (neck edema noted) - Respiratory Respiratory: bilateral: CTA - Cardiovascular Rhythm: regular - Integumentary Integumentary: no cellulitis, no jaundiced, rash (Venous collateralization acro ss chest) - Neurologic Neurologic: CNII-XII intact - Musculoskeletal Musculoskeletal: no generalized weakness - Psychiatric Psychiatric: A&O x's 3, appropriate affect, intact judgment & insight Results CBC & Chem 7: 03/26/21 12:45 03/26/21 12:45 Labs: Abnormal Lab Results - Last 24 Hours (Table) 03/26/21 03/26/21 03/26/21 Range/Units 12:45 12:45 12:45 WBC 13.1 H (3.8-10.6) k/uL RBC 3.83 L (4.30-5.90) m/uL Hgb 11.9 L (13.0-17.5) gm/dL Hct 36.0 L (39.0-53.0) % Plt Count 558 H (150-450) k/uL Neutrophils # 10.8 H (1.3-7.7) k/uL PT 17.0 H (9.0-12.0) sec INR 1.7 H (<1.2) Sodium 130 L (137-145) mmol/L Chloride 96 L (98-107) mmol/L Creatinine 0.65 L (0.66-1.25) mg/dL Glucose 109 H (74-99) mg/dL Lipase 385 H (23-300) U/L Coronavirus (PCR) (Not Detectd) 03/26/21 Range/Units 14:28 WBC (3.8-10.6) k/uL RBC (4.30-5.90) m/uL Hgb (13.0-17.5) gm/dL Hct (39.0-53.0) % Plt Count (150-450) k/uL Neutrophils # (1.3-7.7) k/uL PT (9.0-12.0) sec INR (<1.2) Sodium (137-145) mmol/L Chloride (98-107) mmol/L Creatinine (0.66-1.25) mg/dL Glucose (74-99) mg/dL Lipase (23-300) U/L Coronavirus (PCR) Detected A (Not Detectd) CT scan - chest: report reviewed, image reviewed Assessment and Plan Assessment: The patient is a 70-year-old male with an approximate 55-[id number]-[id number] smoking history who presents with facial swelling and difficulty breathing when lying flat. Recent workup included a CT scan of the neck and chest revealing significant mediastinal adenopathy with SVC compression worrisome for underlying lung malignancy. Plan: 1. SVC Syndrome: The patient has SVC compression secondary to significant mediastinal adenopathy. This has been ongoing for some time, as the patient has significant collateralization noted on the anterior chest. He has had relief with steroids as an outpatient, and has subsequently been started on dexa methasone, having been given a 10 mg loading dose. He is currently stable on room air, and does not require emergent radiotherapy. He would likely benefit from a course of palliative radiotherapy, however preferably we would have pathologic diagnosis. 2. Mediastinal adenopathy/underlying malignancy: The patient does have a right supraclavicular lymph node that may be amenable to IR biopsy. If this is not accessible, bronchoscopy with EBUS would likely be able to confirm diagnosis. High suspicion for small cell lung cancer. While the patient is in-house, would recommend completion CT of the abdomen and pelvis as well as an MRI of the brain. I am concerned the patient has metastatic disease as he clearly has a couple of nodules in the upper abdomen that are suspicious. Time with Patient: Greater than 30
[2021-03-26] MEDS: SODIUM CHLORIDE 0.9% 1,000 ML IV SCH ×2 (17:28→22:51)
[2021-03-26 20:59] LABS: Glucose,Whole Blood 279 mg/dL (75-99)
--- NOTE | 2021-03-26 22:32 | P.HPIM ---
History of Present Illness H&P Date: 03/26/21 Chief Complaint: Facial swelling Patient is a 70-year-old male with a known history of osteoarthritis and currently everyday smoker and alcohol use [facility] presents to ER due to complaints of right upper extremity swelling and facial swelling. Patient initially developed facial swelling and swelling on the right side of the neck and upper extremity about 3 months ago. Patient was seen in the urgent care facility and recommended steroid tapering course. Swelling did not improve much and patient was also recommended to follow-up with ENT. CAT scan was ordered but could not be done until yesterday due to prior authorization. CT of the neck and chest done yesterday showed asymmetrically increased soft tissue in the region of the left cuboid and palatine tonsils warrants direct visualization to exclude mucosal lesions or mass. Right supraclavicular lymphadenopathy measuring up to 2.1 cm extending up to the level of the cricoid cartilage. Metastatic disease is suggested. Conglomeratemediastinaland right hilar lymphadenopathy right hilar adenopathy with milly masses measuring up to nearly 10 cm. There is mass-effect with significant narrowing and near occlusion of the SVC. Additional extrinsic compression mildly narrowing the right main pulmonary artery, significant narrowing of the right upper lobe and middle lobe arterial branches and probably directly invasion into the and narrowing the right interlobar segment of the right pulmonary artery. Probable occlusion right superior pulmonary vein. Spiculated anterior right upper lobe mass measures 3.2 cm. Patient came to ER for evaluation. Patient denied any chest pain or worsening shortness of breath. Does have about 5 LB loss of weight recently and decreased appetite. EKG showed normal sinus rhythm. Laboratory showed WBC 13.1 hemoglobin 11.9 and platelets 558 INR 1.7 Sodium 130 potassium 4.5 chloride 96 BUN 17 and creatinine 0.65 and blood sugar is 109 and lipase level is 385 Coronavirus PCR detected. Review of Systems Constitutional: Patient denies any fever or chills . Patient does have generalized weakness and weight loss. Abdomen: Patient denied nausea vomiting and diarrhea and abdominal pain. Cardiovascular: Patient denies any chest pain or short of breath no palpitations. Respiratory: patient denied any cough or sputum production. No shortness of breath Neurologic: Patient denied any numbness or tingling headache. Musculoskeletal: Patient denies any complaints of joint swelling or deformity. Skin: Fullness of the right side of the neck and facial swelling Psychiatric: Negative Endocrine: No heat or cold intolerance. No recent weight gain. Genitourinary: No dysuria or hematuria. All other 14 point ROS negative except the above Past Medical History Past Medical History: Osteoarthritis (OA) Additional Past Medical History / Comment(s): GOUT, HX OF POSITIVE TB SKIN TEST WITH TX (1996). angel cataracts History of Any Multi-Drug Resistant Organisms: None Reported Past Surgical History: Hernia Repair, Orthopedic Surgery Additional Past Surgical History / Comment(s): ANGEL CARPAL TUNNEL , ANGEL KNEE SURGERY. rt cataract 10/21/20 Past Anesthesia/Blood Transfusion Reactions: No Reported Reaction Past Psychological History: No Psychological Hx Reported Smoking Status: Current every day smoker Past Alcohol Use History: Daily Past Drug Use History: None Reported - Past Family History Father Family Medical History: Cancer Additional Family Medical History / Comment(s): COLON CANCER Brother(s) Family Medical History: Cancer Additional Family Medical History / Comment(s): BLADDER CANCER Medications and Allergies Home Medications Medication Instructions Recorded Confirmed Type Aspirin 325 mg PO DAILY PRN 11/13/17 03/26/21 History Fish Oil/Dha/Epa [Fish Oil 1,200 1 cap PO DAILY 11/13/17 03/26/21 History mg Fish Oil] Carboxymethylcellulose Sodium 1 drop BOTH EYES DAILY PRN 03/26/21 03/26/21 History [Refresh Tears] Cetirizine HCl [Zyrtec] 10 mg PO BID 03/26/21 03/26/21 History Famotidine [Pepcid] 20 mg PO BID 03/26/21 03/26/21 History predniSONE See Taper PO DAILY 03/26/21 03/26/21 History Allergies Allergy/AdvReac Type Severity Reaction Status Date / Time No Known Allergies Allergy Verified 03/26/21 13:03 Physical Exam Vitals: Vital Signs Temp Pulse Resp BP Pulse Ox 03/26/21 13:26 18 03/26/21 11:16 97.0 F L 86 18 193/96 99 Intake and Output 03/26/21 03/26/21 03/26/21 06:59 14:59 22:59 Other: Weight 63.503 kg PHYSICAL EXAMINATION: Patient is lying in the bed comfortably, no acute distress, awake alert and oriented.. HEENT: Normocephalic. Neck is supple. Pupils reactive. Nostrils clear. Oral cavity is moist. Patient does have right-sided facial swelling and fullness in the right side of the neck. Neck reveals no JVD, carotid bruits, or thyromegaly. CHEST EXAMINATION: Trachea is central. Symmetrical expansion. Lung stewart clear to auscultation and percussion. CARDIAC: Normal S1, S2 with no gallops. No murmurs ABDOMEN: Soft. Bowel sounds normal. No organomegaly. No abdominal bruits. Extremities: reveal no edema. No clubbing or cyanosis Neurologically awake, alert, oriented x3 with well-coordinated movements. No focal deficits noted Skin: No rash or skin lesions. Psychiatric: Cooperative. Nonsuicidal Musculoskeletal: No joint swelling or deformity. Normal range of motion. Results CBC & Chem 7: 03/26/21 12:45 03/26/21 12:45 Labs: Abnormal Lab Results - Last 24 Hours (Table) 03/26/21 03/26/21 03/26/21 Range/Units 12:45 12:45 12:45 WBC 13.1 H (3.8-10.6) k/uL RBC 3.83 L (4.30-5.90) m/uL Hgb 11.9 L (13.0-17.5) gm/dL Hct 36.0 L (39.0-53.0) % Plt Count 558 H (150-450) k/uL Neutrophils # 10.8 H (1.3-7.7) k/uL PT 17.0 H (9.0-12.0) sec INR 1.7 H (<1.2) Sodium 130 L (137-145) mmol/L Chloride 96 L (98-107) mmol/L Creatinine 0.65 L (0.66-1.25) mg/dL Glucose 109 H (74-99) mg/dL Lipase 385 H (23-300) U/L Coronavirus (PCR) (Not Detectd) 03/26/21 Range/Units 14:28 WBC (3.8-10.6) k/uL RBC (4.30-5.90) m/uL Hgb (13.0-17.5) gm/dL Hct (39.0-53.0) % Plt Count (150-450) k/uL Neutrophils # (1.3-7.7) k/uL PT (9.0-12.0) sec INR (<1.2) Sodium (137-145) mmol/L Chloride (98-107) mmol/L Creatinine (0.66-1.25) mg/dL Glucose (74-99) mg/dL Lipase (23-300) U/L Coronavirus (PCR) Detected A (Not Detectd) Thrombosis Risk Factor Assmnt - DVT/VTE Prophylaxis DVT/VTE Prophylaxis: Pharmacologic Prophylaxis ordered - Choose All That Apply Any of the Below Risk Factors Present?: Yes Other Risk Factors: Yes Each Risk Factor Represents 2 Points: Age 61-74 years Other congenital or acquired thrombophilia - If yes, enter type in comment: No Thrombosis Risk Factor Assessment Total Risk Factor Score: 2 Thrombosis Risk Factor Assessment Level: Low Risk Assessment and Plan Assessment: Right sided facial, neck swelling and right upper extremity swelling due to superior vena caval syndrome. Right upper lobe spiculated mass 3.2 cm. Conglomerate mediastinal and right hilar lymphadenopathy with mass-effect and possible occlusion of the right superior pulmonary vein and narrowing of the right main pulmonary artery. Hypovolemic hyponatremia Ongoing nicotine addiction History of gout Hyperlipidemia DVT prophylaxis with heparin subcu Plan: Patient was started on dexamethasone 6 mg IV push every 6 hourly and monitor r espiratory status closely. Continue with gentle IV hydration. Pulmonary is on board. Entrance radiology was consulted for right supraclavicular lymph node biopsy and also radiation oncology was consulted. Discussed with the patient and his sister at bedside in detail. Continue to follow closely. Prognosis is guarded. Time with Patient: Greater than 30
[2021-03-26] MEDS: INSULIN ASPART (NovoLOG) 100 UNIT/ML VIAL SQ SCH (22:50)
[2021-03-26] MEDS: FAMOTIDINE 20 MG TAB PO SCH (22:50)
[2021-03-26] MEDS: HEPARIN SODIUM,PORCINE/PF 5,000 UNIT/0.5 ML SYRINGE SQ SCH (22:51)
--- NOTE | 2021-03-27 00:54 | P.CONS ---
History of Present Illness - Reason for Consult Consult date: 03/26/21 Mediastinal Mass, SVC syndrome - History of Present Illness the patient is a 70-year-old white male, in his usual state of health until about late 12/17. At that time the patient started having issues with swelling and redness on his face, with occasional itching. He also noted some swelling and redness in his upper extremities, right greater than left. Initially he was felt to be possibly having a hypersensitivity phenomenon and was placed on steroids, which caused significant. His symptoms returned the patient steroids. He was being managed with intermittent courses of steroids with a similar response each time. He recently had recurrence of symptoms. He remains off steroids and range intermittently. He was started back on steroids, also simulate him today his sister, who is a retired radiation oncology, felt that the patient should have further workup with a CT scan of the chest and he was brought to the emergency room. CT angiogram revealed a conglomerate mediastinal and hilar mass, measuri ng upto 10 cm, with SVC obstruction, and possible invasion of a RUL pulmonary artery branch. Consult was thus placed for further evaluation and recommnedations He denied any prior h/o malignancy. he smoked about 1-1.5 packs a day since age 12 till 1984. Since then he has been smoking cigars daily. He denied any cough, stridor,hemoptysis, SOB over baseline, or trouble swallowing. He does c/o dizziness if he bends down and straightens up, as well as some hoarseness Review of Systems Constitutional: Reports fatigue Eyes: denies blurred vision, denies pain Ears: deny: decreased hearing, ear discharge, earache, tinnitus Ears, nose, mouth and throat: Reports as per HPI, Reports voice changes Cardiovascular: Reports as per HPI Respiratory: Reports as per HPI Gastrointestinal: Denies abdominal pain, Denies diarrhea, Denies nausea, Denies vomiting Genitourinary: Reports as per HPI Musculoskeletal: Reports as per HPI (B/L UE swelling R > L) Integumentary: Reports color changes, Reports pruritus Neurological: Denies numbness, Denies weakness Psychiatric: Denies anxiety, Denies depression Endocrine: Denies fatigue, Denies weight change Hematologic/Lymphatic: Reports as per HPI Allergic/Immunologic: Reports as per HPI Past Medical History Past Medical History: Osteoarthritis (OA) Additional Past Medical History / Comment(s): GOUT, HX OF POSITIVE TB SKIN TEST WITH TX (1996). angel cataracts History of Any Multi-Drug Resistant Organisms: None Reported Past Surgical History: Hernia Repair, Orthopedic Surgery Additional Past Surgical History / Comment(s): ANGEL CARPAL TUNNEL , ANGEL KNEE SURGERY. rt cataract 10/21/20 Past Anesthesia/Blood Transfusion Reactions: No Reported Reaction Past Psychological History: No Psychological Hx Reported Smoking Status: Current every day smoker Past Alcohol Use History: Daily Past Drug Use History: None Reported - Past Family History Father Family Medical History: Cancer Additional Family Medical History / Comment(s): COLON CANCER Brother(s) Family Medical History: Cancer Additional Family Medical History / Comment(s): BLADDER CANCER Medications and Allergies Home Medications Medication Instructions Recorded Confirmed Type Aspirin 325 mg PO DAILY PRN 11/13/17 03/26/21 History Fish Oil/Dha/Epa [Fish Oil 1,200 1 cap PO DAILY 11/13/17 03/26/21 History mg Fish Oil] Carboxymethylcellulose Sodium 1 drop BOTH EYES DAILY PRN 03/26/21 03/26/21 History [Refresh Tears] Cetirizine HCl [Zyrtec] 10 mg PO BID 03/26/21 03/26/21 History Famotidine [Pepcid] 20 mg PO BID 03/26/21 03/26/21 History predniSONE See Taper PO DAILY 03/26/21 03/26/21 History Allergies Allergy/AdvReac Type Severity Reaction Status Date / Time No Known Allergies Allergy Verified 03/26/21 13:03 Physical Exam Vitals: Vital Signs Temp Pulse Pulse Resp BP BP Pulse Ox 03/26/21 23:18 97.9 F 95 17 130/78 97 03/26/21 20:00 97.6 F 94 18 149/83 100 03/26/21 17:20 98.3 F 73 18 179/99 100 03/26/21 17:17 73 18 03/26/21 15:58 80 18 170/86 98 03/26/21 13:26 18 03/26/21 11:16 97.0 F L 86 18 193/96 99 Intake and Output 03/26/21 03/26/21 03/27/21 14:59 22:59 06:59 Intake Total 240 Balance 240 Intake: Oral 240 Other: Voiding Method Toilet # Voids 1 Weight 63.503 kg - Constitutional General appearance: no acute distress - EENT Eyes: EOMI, PERRLA ENT: hearing grossly normal - Neck mild generalized soft tissue swelling and venous prominence Neck: no lymphadenopathy Thyroid: bilateral: normal size - Respiratory Respiratory: right: diminished, rhonchi - Cardiovascular Rhythm: regular Heart sounds: normal: S1, S2 - Gastrointestinal General gastrointestinal: normal bowel sounds, soft - Integumentary Integumentary: flushed (face and neck, UE) - Neurologic Neurologic: CNII-XII intact - Musculoskeletal b/l UE swelling, mild R > L Musculoskeletal: strength equal bilaterally - Psychiatric Psychiatric: A&O x's 3, appropriate affect Results CBC & Chem 7: 03/26/21 12:45 03/26/21 12:45 Labs: Abnormal Lab Results - Last 24 Hours (Table) 03/26/21 03/26/21 03/26/21 Range/Units 12:45 12:45 12:45 WBC 13.1 H (3.8-10.6) k/uL RBC 3.83 L (4.30-5.90) m/uL Hgb 11.9 L (13.0-17.5) gm/dL Hct 36.0 L (39.0-53.0) % Plt Count 558 H (150-450) k/uL Neutrophils # 10.8 H (1.3-7.7) k/uL PT 17.0 H (9.0-12.0) sec INR 1.7 H (<1.2) Sodium 130 L (137-145) mmol/L Chloride 96 L (98-107) mmol/L Creatinine 0.65 L (0.66-1.25) mg/dL Glucose 109 H (74-99) mg/dL POC Glucose (mg/dL) (75-99) mg/dL Lipase 385 H (23-300) U/L Coronavirus (PCR) (Not Detectd) 03/26/21 03/26/21 Range/Units 14:28 20:57 WBC (3.8-10.6) k/uL RBC (4.30-5.90) m/uL Hgb (13.0-17.5) gm/dL Hct (39.0-53.0) % Plt Count (150-450) k/uL Neutrophils # (1.3-7.7) k/uL PT (9.0-12.0) sec INR (<1.2) Sodium (137-145) mmol/L Chloride (98-107) mmol/L Creatinine (0.66-1.25) mg/dL Glucose (74-99) mg/dL POC Glucose (mg/dL) 279 H (75-99) mg/dL Lipase (23-300) U/L Coronavirus (PCR) Detected A (Not Detectd) Comments: EKG image reviewed CT scan - chest: report reviewed Assessment and Plan (1) Lung mass Narrative/Plan: the patient is presenting with conglomerate mediastinal and hilar mass, with lung and left adrenal mass. The clinical picture, including his smoking history, is highly suspicious for primary lung malignancy. The same was d/w the pt and his sister in detail. The pt will need a tissue diagnosis and additional staging studies. Case d/w ER physician in detail. Pulmonary has been consulted and have indicated that they will scheduled a biopsy - Check MRI brain - The pt will need a PET as an outpt for completion of staging. At this time, there is concern distant disease, for eg, left adrenal mass Current Visit: Yes Status: Acute Code(s): R91.8 - OTHER NONSPECIFIC ABNORMAL FINDING OF LUNG FIELD SNOMED Code(s): 477215129 (2) SVC syndrome Narrative/Plan: The pt has SVC syndrome, with good response re symptoms, whenever he has been on steroids. He has no significant respiratory or swallowing compromise. - It was d/w pt, his sister and the ER physician that that SVC syndrome is not considered an oncologic emergency. The pt will be placed on IV steroids with DEcadron - Radiation ONcology was consulted and case discussed in detail. Assuming pt is stable with steroids, can likely hold off on RT till pathologic diagnosis is established. If the diagnosis is SCLC or lymphoma, then rapid response can be achieved by upfront systemic therapy - There was concern about involvement of a pulmonary artery branch. The pt has no clinical evidence of bleeding. It was d/w him and his sister that a major hemorrhage due to the same at presentation is very uncommon. If a major event of this type were to occur, treatment options would be very limited, even at a tertiary institution. . They expressed understanding, and want to continue to pursue further w/u and treatment locally Current Visit: Yes Status: Acute Code(s): I87.1 - COMPRESSION OF VEIN SNOMED Code(s): 23402709
[2021-03-27 06:26] LABS: Glucose,Whole Blood 139 mg/dL (75-99)
[2021-03-27] MEDS: INSULIN ASPART (NovoLOG) 100 UNIT/ML VIAL SQ SCH ×4 (06:26→20:46)
[2021-03-27] MEDS: DEXAMETHASONE SOD PHOSPHATE 10 MG/ML 1 ML VIAL IVP SCH ×4 (06:27→23:03)
--- NOTE | 2021-03-27 06:48 | XR ---
EXAMINATION TYPE: XR chest 1V DATE OF EXAM: 03/27/2021 COMPARISON: None HISTORY: Lung mass TECHNIQUE: Single frontal view of the chest is obtained. FINDINGS: There is an ill-defined 2.9 cm mass in the right lung apex. The right hilum,suprahilar reg ion and right paratracheal region is obscured by an opacity likely reflecting atelectasis and/or manny opathy. The left lung is clear. There is no pneumothorax or pleural effusion. Heart size normal vasculature is not congested. The oss eous structures are intact. IMPRESSION: Right apical lung mass and abnormal right hilum and right paratracheal region as describ ed above. CT chest should be useful for further characterization.
[2021-03-27] MEDS ORDERED: NON FORMULARY DRUG (Fish Oil/Dha/Epa [Fish Oil 1,200 Mg Fish Oil] 1 EACH Capsule) PO SCH (09:00)
[2021-03-27 09:09] LABS: Basophils % (A) 0 %; Eosinophils % (A) 0 %; HCT 34.6 % (39.0-53.0); HGB 11.1 gm/dL (13.0-17.5); Lymphocytes # (A) 1.1 k/uL (1.0-4.8); Lymphocytes % (A) 10 %; MCH 30.6 pg (25.0-35.0); MCHC 32.1 g/dL (31.0-37.0); MCV 95.1 fL (80.0-100.0); Mean Platelet Volume 6.9; Monocytes # (A) 0.2 k/uL (0-1.0); Monocytes % (A) 2 %; Neutrophils # (A) 8.9 k/uL (1.3-7.7); Neutrophils % (A) 87 %; Platelet Count 552 k/uL (150-450); RBC 3.64 m/uL (4.30-5.90); RDW 14.3 % (11.5-15.5); WBC 10.2 k/uL (3.8-10.6)
[2021-03-27 09:19] LABS: African American GFR (CKD) >90 (>60 ml/min/1.73 sqM); Anion Gap 4 mmol/L; Blood Urea Nitrogen 20 mg/dL (9-20); Calcium 9.2 mg/dL (8.4-10.2); Carbon Dioxide 28 mmol/L (22-30); Chloride 98 mmol/L (98-107); Glucose 125 mg/dL (74-99); Non-African American GFR(CKD) >90 (>60 ml/min/1.73 sqM); Potassium 4.6 mmol/L (3.5-5.1); Sodium 130 mmol/L (137-145)
[2021-03-27] MEDS: FAMOTIDINE 20 MG TAB PO SCH (09:25)
[2021-03-27] MEDS: LORATADINE 10 MG TAB PO SCH (09:25)
[2021-03-27] MEDS: HEPARIN SODIUM,PORCINE/PF 5,000 UNIT/0.5 ML SYRINGE SQ SCH ×3 (09:25→23:03)
[2021-03-27] MEDS: amLODIPine 5 MG TAB PO SCH (09:25)
[2021-03-27 11:51] LABS: Glucose,Whole Blood 146 mg/dL (75-99)
--- NOTE | 2021-03-27 12:31 | MR ---
EXAMINATION TYPE: MR brain wo/w con DATE OF EXAM: 03/27/2021 COMPARISON: None HISTORY: Lung malignancy. TECHNIQUE: Multiplanar, multisequence images of the brain and brainstem is performed without and with IV contras t, utilizing 7 mL intravenous Gadavist . FINDINGS: Diffusion weighted images demonstrate no evidence of a recent infarct or other diffusion ab normality. There is no extra-axial fluid collection. There are a few focal areas of abnormal increas ed signal intensity in the white matter of the cerebral hemispheres consistent with chronic ischemic change. The ventricles, basal cisterns and sulci over the convexities are moderately enlarged consistent with moderate atrophy but appropriate for the patient's age. Midline structures demonstrate normal morpho logy. The craniocervical junction appears within normal limits. Post contrast images demonstrate no abnormal enhancement. The dural venous sinuses appear patent. The visualized sinuses are clear and t he globes are intact. IMPRESSION: 1. Moderate atrophy age appropriate. 2. No pathological enhancement throughout the brain parenchyma. No evidence of metastatic disease. 3. Mild chronic ischemic white matter changes. 4. No acute ischemic event.
[2021-03-27] MEDS ORDERED: IOPAMIDOL CONTRAST (ORAL USE) VIAL PO PRN (14:45)
--- NOTE | 2021-03-27 16:04 | P.PN ---
Subjective Progress Note Date: 03/27/21 This is a very pleasant 70-year-old male patient who follows with the [facility] for his primary care needs. He has a history of gout, hyperlipidemia, chronic tobacco dependence of greater than 40 years. Approximately the first part of December 2020 the patient developed facial swelling and edema of the right neck and upper extremity. There was some concern regarding possible ALLERGIES and he had been referred to ear nose and throat physician who was treating him with steroids, Pepcid, Zyrtec without much improvement. The patient's edema continued and a CAT scan of the neck and chest were performed yesterday and the patient was found to have asymmetry with increased soft tissue in the region of the left tubal and palatine tonsils warrants direct visualization to exclude mucosal lesion/mass recommended. Right supraclavicular lymphadenopathy measuring up to 2.1 cm extending to the left of the cricoid cartilage. Metastatic disease is considered. The chest revealed conglomerate mediastinal a nd right hilar lymphadenopathy with milly masses measuring up to nearly 10 cm. There is mass effect with significant narrowing and near occlusion of the SVC. Additional extrinsic compression mildly narrow in the right main pulmonary artery, significant narrowing of the right upper lobe and middle lobe arterial branches and probably direct invasion into and narrowing of the right interlobar segment of the right pulmonary artery. Probable occlusion of the right superior pulmonary vein. There is a spiculated anterior right upper lobe mass measuring 3.2 cm. Reticular changes in the right upper lobe likely due to venous congestion. Patchy change anterior right midlung probably postobstructive pneumonia. Small right pleural effusion. In the upper abdomen a suspicious 1.3 cm soft tissue deposit just above the left adrenal gland and a 1.5 cm soft tissue nodule anterior to the spleen. The patient was referred to the emergency room today based on these findings. White count 13.1. Hemoglobin 11.9. Platelets 558. INR 1.7. Sodium 1:30. Potassium 4.5. BUN 17. Creatinine 0.65. Glucose 109. AST 24. ALT 16. Lipase 385. BNP 168. Troponin 0.012. He is seen today in consultation in the emergency department. He is currently resting on the stretcher. Awake and alert in no acute distress. Maintaining O2 saturations up to 99% on room air. He's afebrile. Slightly hypertensive. He does have noted right-sided facial right neck, right upper extremity edema. There is some engorged blood vessels on the chest. The patient has had some weight loss but his appetite remains good. No hemoptysis. No significant cough or congestion. The patient is seen today 03/27/2021 in follow-up on the selective care unit. He is currently sitting up in bed. Awake and alert in no acute distress. He is maintaining O2 saturations in the 90s on room air. No worsening right-sided facial edema. No difficulty in swallowing. No difficulty in breathing. X-ray continues to revealed right apical lung mass and abnormal right hilum and right paratracheal region. There is an ill-defined 2.9 cm mass in the right lung apex. MRI of the brain revealed no pathologic enhancement throughout the brain parenchyma. No evidence of metastatic disease. White count 10.2. Hemoglobin 11.1. Platelets 552. Sodium 130. Potassium 4.6. Creatinine 0.65. Glucose 125. He is continued on Decadron 6 mg IVP every 6 hours. Heparin for DVT prophylaxis. Objective - Vital Signs Vital signs: Vital Signs Temp 98 F 03/27/21 12:55 Pulse 91 03/27/21 12:55 Resp 18 03/27/21 14:00 BP 137/84 03/27/21 12:55 Pulse Ox 99 03/27/21 12:55 Intake & Output 03/26/21 03/27/21 03/27/21 18:59 06:59 18:59 Intake Total 240 375 240 Balance 240 375 240 Weight 63.503 kg 64 kg Intake: Intake, IV Titration 375 Amount Sodium Chloride 0.9% 1, 375 000 ml @ 75 mls/hr IV . [id number] [facility] Rx#:[id number] Oral 240 240 Other: Voiding Method Toilet Toilet Toilet # Voids 1 1 - Exam GENERAL EXAM: Alert, very pleasant 70-year-old male patient, on room air, fairly comfortable in no apparent distress. HEAD: Noted edema of the right face and neck. EYES: Normal reaction of pupils, equal size. NOSE: Clear with pink turbinates. THROAT: No erythema or exudates. NECK: Enlarged lymph node palpable on the right neck. No masses, no JVD. CHEST: No chest wall deformity. Some venous engorgement noted on the chest. LUNGS: Equal air entry with no crackles, wheeze, rhonchi or dullness. CVS: S1 and S2 normal with no audible murmur, regular rhythm. ABDOMEN: No hepatosplenomegaly, normal bowel sounds, no guarding or rigidity. SPINE: No scoliosis or deformity SKIN: No rashes CENTRAL NERVOUS SYSTEM: No focal deficits, tone is normal in all 4 extremities. EXTREMITIES: Edema of the right upper extremity. No clubbing, no cyanosis. Peripheral pulses are intact. - Labs CBC & Chem 7: 03/27/21 08:30 03/27/21 08:30 Labs: Abnormal Lab Results - Last 24 Hours (Table) 03/26/21 03/27/21 03/27/21 Range/Units 20:57 06:23 08:30 RBC 3.64 L (4.30-5.90) m/uL Hgb 11.1 L (13.0-17.5) gm/dL Hct 34.6 L (39.0-53.0) % Plt Count 552 H (150-450) k/uL Neutrophils # 8.9 H (1.3-7.7) k/uL Sodium (137-145) mmol/L Creatinine (0.66-1.25) mg/dL Glucose (74-99) mg/dL POC Glucose (mg/dL) 279 H 139 H (75-99) mg/dL 03/27/21 03/27/21 Range/Units 08:30 11:47 RBC (4.30-5.90) m/uL Hgb (13.0-17.5) gm/dL Hct (39.0-53.0) % Plt Count (150-450) k/uL Neutrophils # (1.3-7.7) k/uL Sodium 130 L (137-145) mmol/L Creatinine 0.65 L (0.66-1.25) mg/dL Glucose 125 H (74-99) mg/dL POC Glucose (mg/dL) 146 H (75-99) mg/dL Assessment and Plan Assessment: 1 Right-sided facial, neck and upper extremity edema being treated in the outpatient setting since 12/2020 for possible angioedema however 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 Right supraclavicular lymphadenopathy measuring up to 2.1 cm extending to the left of the cricoid cartilage. Metastatic disease is considered. The chest revealed conglomerate mediastinal and right hilar lymphadenopathy with milly masses measuring up to nearly 10 cm. There is mass effect with significant narrowing and near occlusion of the SVC. Additional extrinsic compression mildly narrow in the right main pulmonary artery, significant narrowing of the right upper lobe and middle lobe arterial branches and probably direct invasion into and narrowing of the right interlobar segment of the right pulmonary artery. Probable occlusion of the right superior pulmonary vein. There is a spiculated anterior right upper lobe mass measuring 3.2 cm. Reticular changes in the right upper lobe likely due to venous congestion. Patchy change anterior right midlung probably postobstructive pneumonia. Small right pleural effusion. In the upper abdomen a suspicious 1.3 cm soft tissue deposit just above the left adrenal gland and a 1.5 cm soft tissue nodule anterior to the spleen. 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 Currently on Decadron 3 Weight loss secondary to above 4 Chronic tobacco dependence of greater than 50 years, has not smoked since December 2020 5 History of gout. 6 Hyperlipidemia Plan: The patient was seen and evaluated Stable and on room air currently Recommend interventional radiology to perform biopsy of the right supra- clavicular lymph node for diagnosis and staging Remains on Decadron We will continue to follow I, the cosigning physician, performed a history & physical examination of the patient. Lungs sounds are clear. Maintaining good O2 saturations in the 90s on room air. I discussed the assessment and plan of care with my nurse practitioner, Nelli Paige. I attest to the above note as dictated by her.
[2021-03-27 16:32] LABS: Glucose,Whole Blood 158 mg/dL (75-99)
[2021-03-27] MEDS: lisinopriL 5 MG TAB PO SCH (18:24)
[2021-03-27 20:03] LABS: Glucose,Whole Blood 111 mg/dL (75-99)
[2021-03-27] MEDS: SODIUM CHLORIDE 0.9% 1,000 ML IV SCH (20:45)
[2021-03-27] MEDS: PANTOPRAZOLE 40 MG/10 ML VIAL IVP SCH (23:03)
[2021-03-28 06:07] LABS: Glucose,Whole Blood 134 mg/dL (75-99)
[2021-03-28] MEDS: DEXAMETHASONE SOD PHOSPHATE 10 MG/ML 1 ML VIAL IVP SCH ×4 (06:18→23:50)
[2021-03-28] MEDS: INSULIN ASPART (NovoLOG) 100 UNIT/ML VIAL SQ SCH ×4 (06:19→21:05)
[2021-03-28 09:20] LABS: African American GFR (CKD) >90 (>60 ml/min/1.73 sqM); Anion Gap 6 mmol/L; Blood Urea Nitrogen 20 mg/dL (9-20); Calcium 9.4 mg/dL (8.4-10.2); Carbon Dioxide 28 mmol/L (22-30); Chloride 95 mmol/L (98-107); Glucose 168 mg/dL (74-99); Non-African American GFR(CKD) >90 (>60 ml/min/1.73 sqM); Potassium 4.5 mmol/L (3.5-5.1); Sodium 129 mmol/L (137-145)
[2021-03-28] MEDS: PANTOPRAZOLE 40 MG/10 ML VIAL IVP SCH (10:48)
[2021-03-28] MEDS: LORATADINE 10 MG TAB PO SCH (10:49)
[2021-03-28] MEDS: HEPARIN SODIUM,PORCINE/PF 5,000 UNIT/0.5 ML SYRINGE SQ SCH ×3 (10:49→23:50)
[2021-03-28] MEDS: lisinopriL 5 MG TAB PO SCH (10:49)
[2021-03-28] MEDS: amLODIPine 5 MG TAB PO SCH (10:49)
[2021-03-28 11:57] LABS: Glucose,Whole Blood 124 mg/dL (75-99)
--- NOTE | 2021-03-28 13:55 | P.PN ---
Subjective Progress Note Date: 03/28/21 This is a very pleasant 70-year-old male patient who follows with the [facility] for his primary care needs. He has a history of gout, hyperlipidemia, chronic tobacco dependence of greater than 40 years. Approximately the first part of December 2020 the patient developed facial swelling and edema of the right neck and upper extremity. There was some concern regarding possible ALLERGIES and he had been referred to ear nose and throat physician who was treating him with steroids, Pepcid, Zyrtec without much improvement. The patient's edema continued and a CAT scan of the neck and chest were performed yesterday and the patient was found to have asymmetry with increased soft tissue in the region of the left tubal and palatine tonsils warrants direct visualization to exclude mucosal lesion/mass recommended. Right supraclavicular lymphadenopathy measuring up to 2.1 cm extending to the left of the cricoid cartilage. Metastatic disease is considered. The chest revealed conglomerate mediastinal a nd right hilar lymphadenopathy with milly masses measuring up to nearly 10 cm. There is mass effect with significant narrowing and near occlusion of the SVC. Additional extrinsic compression mildly narrow in the right main pulmonary artery, significant narrowing of the right upper lobe and middle lobe arterial branches and probably direct invasion into and narrowing of the right interlobar segment of the right pulmonary artery. Probable occlusion of the right superior pulmonary vein. There is a spiculated anterior right upper lobe mass measuring 3.2 cm. Reticular changes in the right upper lobe likely due to venous congestion. Patchy change anterior right midlung probably postobstructive pneumonia. Small right pleural effusion. In the upper abdomen a suspicious 1.3 cm soft tissue deposit just above the left adrenal gland and a 1.5 cm soft tissue nodule anterior to the spleen. The patient was referred to the emergency room today based on these findings. White count 13.1. Hemoglobin 11.9. Platelets 558. INR 1.7. Sodium 1:30. Potassium 4.5. BUN 17. Creatinine 0.65. Glucose 109. AST 24. ALT 16. Lipase 385. BNP 168. Troponin 0.012. He is seen today in consultation in the emergency department. He is currently resting on the stretcher. Awake and alert in no acute distress. Maintaining O2 saturations up to 99% on room air. He's afebrile. Slightly hypertensive. He does have noted right-sided facial right neck, right upper extremity edema. There is some engorged blood vessels on the chest. The patient has had some weight loss but his appetite remains good. No hemoptysis. No significant cough or congestion. The patient is seen today 03/27/2021 in follow-up on the selective care unit. He is currently sitting up in bed. Awake and alert in no acute distress. He is maintaining O2 saturations in the 90s on room air. No worsening right-sided facial edema. No difficulty in swallowing. No difficulty in breathing. X-ray continues to revealed right apical lung mass and abnormal right hilum and right paratracheal region. There is an ill-defined 2.9 cm mass in the right lung apex. MRI of the brain revealed no pathologic enhancement throughout the brain parenchyma. No evidence of metastatic disease. White count 10.2. Hemoglobin 11.1. Platelets 552. Sodium 130. Potassium 4.6. Creatinine 0.65. Glucose 125. He is continued on Decadron 6 mg IVP every 6 hours. Heparin for DVT prophylaxis. The patient is seen today 03/28/2021 follow-up on the selective care unit. He is awake and alert in no acute distress. He is maintaining good O2 saturations in the 90s on room air. No IV fluids. Sodium 129. Potassium 4.5. Chloride 95. Bicarb 28. BUN 20. Creatinine 0.73. Glucose 168. Calcium 9.4. He remains on Decadron 6 mg IVP every 6 hours. Heparin for DVT prophylaxis. Objective - Vital Signs Vital signs: Vital Signs Temp 98 F 03/28/21 13:10 Pulse 88 03/28/21 13:10 Resp 18 03/28/21 13:10 BP 130/79 03/28/21 13:10 Pulse Ox 98 03/28/21 13:10 Intake & Output 03/27/21 03/28/21 03/28/21 18:59 06:59 18:59 Intake Total 480 1080 Balance 480 1080 Intake: Oral 480 1080 Other: Voiding Method Toilet Toilet Toilet # Voids 2 1 - Exam GENERAL EXAM: Alert, very pleasant 70-year-old male patient, on room air, fairly comfortable in no apparent distress. HEAD: Noted edema of the right face and neck. EYES: Normal reaction of pupils, equal size. NOSE: Clear with pink turbinates. THROAT: No erythema or exudates. NECK: Enlarged lymph node palpable on the right neck. No masses, no JVD. CHEST: No chest wall deformity. Some venous engorgement noted on the chest. LUNGS: Equal air entry with no crackles, wheeze, rhonchi or dullness. CVS: S1 and S2 normal with no audible murmur, regular rhythm. ABDOMEN: No hepatosplenomegaly, normal bowel sounds, no guarding or rigidity. SPINE: No scoliosis or deformity SKIN: No rashes CENTRAL NERVOUS SYSTEM: No focal deficits, tone is normal in all 4 extremities. EXTREMITIES: Edema of the right upper extremity. No clubbing, no cyanosis. Peripheral pulses are intact. - Labs CBC & Chem 7: 03/27/21 08:30 03/28/21 08:27 Labs: Abnormal Lab Results - Last 24 Hours (Table) 03/27/21 03/27/21 03/28/21 Range/Units 16:30 20:00 06:02 Sodium (137-145) mmol/L Chloride (98-107) mmol/L Glucose (74-99) mg/dL POC Glucose (mg/dL) 158 H 111 H 134 H (75-99) mg/dL 03/28/21 03/28/21 Range/Units 08:27 11:56 Sodium 129 L (137-145) mmol/L Chloride 95 L (98-107) mmol/L Glucose 168 H (74-99) mg/dL POC Glucose (mg/dL) 124 H (75-99) mg/dL Assessment and Plan Assessment: 1 Right-sided facial, neck and upper extremity edema being treated in the outpatient setting since 12/2020 for possible angioedema however 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 Right supraclavicular lymphadenopat hy measuring up to 2.1 cm extending to the left of the cricoid cartilage. Metastatic disease is considered. The chest revealed conglomerate mediastinal and right hilar lymphadenopathy with milly masses measuring up to nearly 10 cm. There is mass effect with significant narrowing and near occlusion of the SVC. Additional extrinsic compression mildly narrow in the right main pulmonary artery, significant narrowing of the right upper lobe and middle lobe arterial branches and probably direct invasion into and narrowing of the right interlobar segment of the right pulmonary artery. Probable occlusion of the right superior pulmonary vein. There is a spiculated anterior right upper lobe mass measuring 3.2 cm. Reticular changes in the right upper lobe likely due to venous congestion. Patchy change anterior right midlung probably postobstructive pneumonia. Small right pleural effusion. In the upper abdomen a suspicious 1.3 cm soft tissue deposit just above the left adrenal gland and a 1.5 cm soft tissue nodule anterior to the spleen. 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 Currently on Decadron 3 Weight loss secondary to above 4 Chronic tobacco dependence of greater than 50 years, has not smoked since December 2020 5 History of gout. 6 Hyperlipidemia Plan: The patient was seen and evaluated Stable and on room air currently Interventional radiology to perform biopsy of the right supra-clavicular lymph node for diagnosis and staging Remains on Decadron 6 mg IVP every 6 hours We will continue to follow I, the cosigning physician, performed a history & physical examination of the patient. Lungs sounds are clear. Maintaining good O2 saturations in the 90s on room air. I discussed the assessment and plan of care with my nurse practit Nelli nazario. I attest to the above note as dictated by her.
[2021-03-28 16:48] LABS: Glucose,Whole Blood 160 mg/dL (75-99)
[2021-03-28 20:51] LABS: Glucose,Whole Blood 176 mg/dL (75-99)
[2021-03-28] MEDS: SODIUM CHLORIDE 0.9% 1,000 ML IV SCH (21:01)
[2021-03-28] MEDS: FAMOTIDINE 20 MG TAB PO SCH (21:05)
[2021-03-29] MEDS: DEXAMETHASONE SOD PHOSPHATE 10 MG/ML 1 ML VIAL IVP SCH ×3 (05:22→17:59)
[2021-03-29 06:28] LABS: Glucose,Whole Blood 152 mg/dL (75-99)
[2021-03-29] MEDS: INSULIN ASPART (NovoLOG) 100 UNIT/ML VIAL SQ SCH ×4 (06:35→21:41)
[2021-03-29] MEDS: HEPARIN SODIUM,PORCINE/PF 5,000 UNIT/0.5 ML SYRINGE SQ SCH ×2 (07:57→17:59)
[2021-03-29] MEDS: SODIUM CHLORIDE 0.9% 1,000 ML IV SCH (08:08)
[2021-03-29] MEDS: lisinopriL 5 MG TAB PO SCH (08:08)
[2021-03-29] MEDS: amLODIPine 5 MG TAB PO SCH (08:08)
[2021-03-29] MEDS: LORATADINE 10 MG TAB PO SCH (08:08)
[2021-03-29] MEDS: FAMOTIDINE 20 MG TAB PO SCH ×2 (08:08→19:59)
[2021-03-29 08:09] LABS: Basophils % (A) 0 %; Eosinophils % (A) 0 %; HCT 35.8 % (39.0-53.0); HGB 11.4 gm/dL (13.0-17.5); Lymphocytes # (A) 0.9 k/uL (1.0-4.8); Lymphocytes % (A) 7 %; MCH 30.2 pg (25.0-35.0); MCHC 31.9 g/dL (31.0-37.0); MCV 94.6 fL (80.0-100.0); Monocytes # (A) 0.4 k/uL (0-1.0); Monocytes % (A) 3 %; Neutrophils # (A) 12.3 k/uL (1.3-7.7); Neutrophils % (A) 90 %; Platelet Count 585 k/uL (150-450); RBC 3.78 m/uL (4.30-5.90); RDW 13.9 % (11.5-15.5); WBC 13.7 k/uL (3.8-10.6)
[2021-03-29 08:22] LABS: African American GFR (CKD) >90 (>60 ml/min/1.73 sqM); Anion Gap 3 mmol/L; Blood Urea Nitrogen 24 mg/dL (9-20); Calcium 9.2 mg/dL (8.4-10.2); Carbon Dioxide 32 mmol/L (22-30); Chloride 94 mmol/L (98-107); Glucose 136 mg/dL (74-99); Non-African American GFR(CKD) >90 (>60 ml/min/1.73 sqM); Potassium 4.6 mmol/L (3.5-5.1); Sodium 129 mmol/L (137-145)
--- NOTE | 2021-03-29 10:52 | P.PN ---
Subjective Progress Note Date: 03/27/21 Patient is a 70-year-old male with a known history of osteoarthritis and currently everyday smoker and alcohol use who follows with the [facility] presents to ER due to complaints of right upper extremity swelling and facial swelling. Patient initially developed facial swelling and swelling on the right side of the neck and upper extremity about 3 months ago. Patient was seen in the urgent care facility and recommended steroid tapering course. Swelling did not improve much and patient was also recommended to follow-up with ENT. CAT scan was ordered but could not be done until yesterday due to prior authorization. CT of the neck and chest done yesterday showed asymmetrically increased soft tissue in the region of the left cuboid and palatine tonsils warrants direct visualization to exclude mucosal lesions or mass. Right supraclavicular lymphadenopathy measuring up to 2.1 cm extending up to the level of the cricoid cartilage. Metastatic disease is suggested. Conglomeratemediastinaland right hilar lymphadenopathy right hilar adenopathy with milly masses measuring up to nearly 10 cm. There is mass-effect with significant narrowing and near occlusion of the SVC. Additional extrinsic co mpression mildly narrowing the right main pulmonary artery, significant narrowing of the right upper lobe and middle lobe arterial branches and probably directly invasion into the and narrowing the right interlobar segment of the right pulmonary artery. Probable occlusion right superior pulmonary vein. Spiculated anterior right upper lobe mass measures 3.2 cm. Patient came to ER for evaluation. Patient denied any chest pain or worsening shortness of breath. Does have about 5 LB loss of weight recently and decreased appetite. EKG showed normal sinus rhythm. Laboratory showed WBC 13.1 hemoglobin 11.9 and platelets 558 INR 1.7 Sodium 130 potassium 4.5 chloride 96 BUN 17 and creatinine 0.65 and blood sugar is 109 and lipase level is 385 Coronavirus PCR detected. 03/27/2021 Patient is currently sitting up in the chair. Awake alert and oriented. No acute distress. Saturating well on room air. Improving right facial and neck swelling/edema. Denies any complaints of fever or chills. No cough or sputum production. No chest pain or shortness breath. Chest x-ray showed right apical lung mass and abnormal right hilum and right paratracheal region. MRI of the brain showed moderate atrophy is appropriate. No pathological enhancement throughout the brain parenchyma. No evidence of metastatic disease. No acute ischemic event. Laboratory test showed WBC trending down to 10.2 hemoglobin 11.1 and platelets 552 sodium 130 potassium 4.6 chloride 98 BUN 20 and creatinine 0.65 and blood sugar 125 Patient is being continued on multivitamin supplementation and dexamethasone 6 mg IV every 6 hourly. Current medications reviewed. Objective - Vital Signs Vital signs: Vital Signs Temp 98 F 03/27/21 12:55 Pulse 91 03/27/21 12:55 Resp 18 03/27/21 12:55 BP 137/84 03/27/21 12:55 Pulse Ox 99 03/27/21 12:55 Intake & Output 03/26/21 03/27/21 03/27/21 18:59 06:59 18:59 Intake Total 240 375 240 Balance 240 375 240 Weight 63.503 kg 64 kg Intake: Intake, IV Titration 375 Amount Sodium Chloride 0.9% 1, 375 000 ml @ 75 mls/hr IV . [id number] Rx#:[id number] Oral 240 240 Other: Voiding Method Toilet Toilet Toilet # Voids 1 1 - Exam PHYSICAL EXAMINATION: Patient is lying in the bed comfortably, no acute distress, awake alert and oriented.. HEENT: Normocephalic. Neck is supple. Pupils reactive. Nostrils clear. Oral cavity is moist. Patient does have right-sided facial swelling and fullness in the right side of the neck. Neck reveals no JVD, carotid bruits, or thyromegaly. CHEST EXAMINATION: Trachea is central. Symmetrical expansion. Lung stewart clear to auscultation and percussion. CARDIAC: Normal S1, S2 with no gallops. No murmurs ABDOMEN: Soft. Bowel sounds normal. No organomegaly. No abdominal bruits. Extremities: reveal no edema. No clubbing or cyanosis Neurologically awake, alert, oriented x3 with well-coordinated movements. No focal deficits noted Skin: No rash or skin lesions. Psychiatric: Cooperative. Nonsuicidal Musculoskeletal: No joint swelling or deformity. Normal range of motion. - Labs CBC & Chem 7: 03/29/21 07:30 03/29/21 07:30 Labs: Abnormal Lab Results - Last 24 Hours (Table) 03/26/21 03/27/21 03/27/21 Range/Units 20:57 06:23 08:30 RBC 3.64 L (4.30-5.90) m/uL Hgb 11.1 L (13.0-17.5) gm/dL Hct 34.6 L (39.0-53.0) % Plt Count 552 H (150-450) k/uL Neutrophils # 8.9 H (1.3-7.7) k/uL Sodium (137-145) mmol/L Creatinine (0.66-1.25) mg/dL Glucose (74-99) mg/dL POC Glucose (mg/dL) 279 H 139 H (75-99) mg/dL 03/27/21 03/27/21 Range/Units 08:30 11:47 RBC (4.30-5.90) m/uL Hgb (13.0-17.5) gm/dL Hct (39.0-53.0) % Plt Count (150-450) k/uL Neutrophils # (1.3-7.7) k/uL Sodium 130 L (137-145) mmol/L Creatinine 0.65 L (0.66-1.25) mg/dL Glucose 125 H (74-99) mg/dL POC Glucose (mg/dL) 146 H (75-99) mg/dL Assessment and Plan Assessment: Right sided facial, neck swelling and right upper extremity swelling due to superior vena caval syndrome. Right upper lobe spiculated mass 3.2 cm. Conglomerate mediastinal and right hilar lymphadenopathy with mass-effect and possible occlusion of the right superior pulmonary vein and narrowing of the right main pulmonary artery. Hypovolemic hyponatremia Ongoing nicotine addiction History of gout Hyperlipidemia DVT prophylaxis with heparin subcu Plan: Patient was started on dexamethasone 6 mg IV push every 6 hourly and monitor respiratory status closely. Continue with gentle IV hydration. Pulmonary is on board. Entrance radiology was consulted for right supraclavicular lymph node biopsy and also radiation oncology was consulted. MRI of the brain showed no evidence of metastatic disease or acute ischemic events. Discussed with the patient and his sister at bedside in detail. Continue to follow closely. Prognosis is guarded. Patient is scheduled for biopsy possibly on Monday. Time with Patient: Greater than 30
--- NOTE | 2021-03-29 10:54 | P.PN ---
Subjective Progress Note Date: 03/28/21 Patient is a 70-year-old male with a known history of osteoarthritis and currently everyday smoker and alcohol use who follows with the [place] [facility] presents to ER due to complaints of right upper extremity swelling and facial swelling. Patient initially developed facial swelling and swelling on the right side of the neck and upper extremity about 3 months ago. Patient was seen in the urgent care facility and recommended steroid tapering course. Swelling did not improve much and patient was also recommended to follow-up with ENT. CAT scan was ordered but could not be done until yesterday due to prior authorization. CT of the neck and chest done yesterday showed asymmetrically increased soft tissue in the region of the left cuboid and palatine tonsils warrants direct visualization to exclude mucosal lesions or mass. Right supraclavicular lymphadenopathy measuring up to 2.1 cm extending up to the level of the cricoid cartilage. Metastatic disease is suggested. Conglomeratemediastinaland right hilar lymphadenopathy right hilar adenopathy with milly masses measuring up to nearly 10 cm. There is mass-effect with significant narrowing and near occlusion of the SVC. Additional extrinsic co mpression mildly narrowing the right main pulmonary artery, significant narrowing of the right upper lobe and middle lobe arterial branches and probably directly invasion into the and narrowing the right interlobar segment of the right pulmonary artery. Probable occlusion right superior pulmonary vein. Spiculated anterior right upper lobe mass measures 3.2 cm. Patient came to ER for evaluation. Patient denied any chest pain or worsening shortness of breath. Does have about 5 LB loss of weight recently and decreased appetite. EKG showed normal sinus rhythm. Laboratory showed WBC 13.1 hemoglobin 11.9 and platelets 558 INR 1.7 Sodium 130 potassium 4.5 chloride 96 BUN 17 and creatinine 0.65 and blood sugar is 109 and lipase level is 385 Coronavirus PCR detected. 03/27/2021 Patient is currently sitting up in the chair. Awake alert and oriented. No acute distress. Saturating well on room air. Improving right facial and neck swelling/edema. Denies any complaints of fever or chills. No cough or sputum production. No chest pain or shortness breath. Chest x-ray showed right apical lung mass and abnormal right hilum and right paratracheal region. MRI of the brain showed moderate atrophy is appropriate. No pathological enhancement throughout the brain parenchyma. No evidence of metastatic disease. No acute ischemic event. Laboratory test showed WBC trending down to 10.2 hemoglobin 11.1 and platelets 552 sodium 130 potassium 4.6 chloride 98 BUN 20 and creatinine 0.65 and blood sugar 125 Patient is being continued on multivitamin supplementation and dexamethasone 6 mg IV every 6 hourly. 03/28/2021 Patient is currently sitting in the bed. Awake alert and oriented x3. No acute distress. Saturating well on room air. Patient is scheduled for lymph node/lung mass biopsy. Right-sided neck and facial swelling is almost resolved. Patient has been candidal dexamethasone 6 mg IV push every 6 hours. Continued on multivitamins and DVT prophylaxis. Laboratory showed sodium level 129 potassium 4.6 chloride 94 bicarb is 32 BUN 24 and creatinine 0.79 Patient is getting IV hydration with normal saline at 75 cc an hour. WBC 13.7 hemoglobin 11.4 and stretchers 585. Current medications reviewed. Objective - Vital Signs Vital signs: Vital Signs Temp 98 F 03/28/21 13:10 Pulse 88 03/28/21 13:10 Resp 18 03/28/21 13:10 BP 130/79 03/28/21 13:10 Pulse Ox 98 03/28/21 13:10 Intake & Output 03/27/21 03/28/21 03/28/21 18:59 06:59 18:59 Intake Total 480 1080 Balance 480 1080 Intake: Oral 480 1080 Other: Voiding Method Toilet Toilet Toilet # Voids 2 1 - Exam PHYSICAL EXAMINATION: Patient is lying in the bed comfortably, no acute distress, awake alert and oriented.. HEENT: Normocephalic. Neck is supple. Pupils reactive. Nostrils clear. Oral cavity is moist. Neck and facial swelling on the right side improved.. Neck reveals no JVD, carotid bruits, or thyromegaly. CHEST EXAMINATION: Trachea is central. Symmetrical expansion. Lung stewart clear to auscultation and percussion. CARDIAC: Normal S1, S2 with no gallops. No murmurs ABDOMEN: Soft. Bowel sounds normal. No organomegaly. No abdominal bruits. Extremities: reveal no edema. No clubbing or cyanosis Neurologically awake, alert, oriented x3 with well-coordinated movements. No focal deficits noted Skin: No rash or skin lesions. Psychiatric: Cooperative. Nonsuicidal Musculoskeletal: No joint swelling or deformity. Normal range of motion. - Labs CBC & Chem 7: 03/29/21 07:30 03/29/21 07:30 Labs: Abnormal Lab Results - Last 24 Hours (Table) 03/27/21 03/27/21 03/28/21 Range/Units 16:30 20:00 06:02 Sodium (137-145) mmol/L Chloride (98-107) mmol/L Glucose (74-99) mg/dL POC Glucose (mg/dL) 158 H 111 H 134 H (75-99) mg/dL 03/28/21 03/28/21 Range/Units 08:27 11:56 Sodium 129 L (137-145) mmol/L Chloride 95 L (98-107) mmol/L Glucose 168 H (74-99) mg/dL POC Glucose (mg/dL) 124 H (75-99) mg/dL Assessment and Plan Assessment: Right sided facial, neck swelling and right upper extremity swelling due to superior vena caval syndrome. Right upper lobe spiculated mass 3.2 cm. Conglomerate mediastinal and right hilar lymphadenopathy with mass-effect and possible occlusion of the right superior pulmonary vein and narrowing of the right main pulmonary artery. Hypovolemic hyponatremia Ongoing nicotine addiction History of gout Hyperlipidemia DVT prophylaxis with heparin subcu Plan: Patient was started on dexamethasone 6 mg IV push every 6 hourly and monitor respiratory status closely. Continue with gentle IV hydration. Pulmonary is on board. Entrance radiology was consulted for right supraclavicular lymph node biopsy and also radiation oncology was consulted. MRI of the brain showed no evidence of metastatic disease or acute ischemic events. Discussed with the patient and his sister at bedside in detail. Continue to follow closely. Prognosis is guarded. Patient is scheduled for biopsy possibly on Monday.
[2021-03-29 11:39] LABS: Glucose,Whole Blood 164 mg/dL (75-99)
--- NOTE | 2021-03-29 13:12 | P.PN ---
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 He is unfortunetly testing positive for COVID as well. Pulm is planning tissue biopsy this week. radiation oncology is following and planning emergent radiation after biopsy for SVC. Full staging with PET to be done as outpatient. MRI of the brain is negative. Objective - Vital Signs Vital signs: Vital Signs Temp 98 F 03/27/21 12:55 Pulse 91 03/27/21 12:55 Resp 18 03/27/21 12:55 BP 137/84 03/27/21 12:55 Pulse Ox 99 03/27/21 12:55 Intake & Output 03/26/21 03/27/21 03/27/21 18:59 06:59 18:59 Intake Total 240 375 240 Balance 240 375 240 Weight 63.503 kg 64 kg Intake: Intake, IV Titration 375 Amount Sodium Chloride 0.9% 1, 375 000 ml @ 75 mls/hr IV . [id number] [facility] Rx#:[id number] Oral 240 240 Other: Voiding Method Toilet Toilet Toilet # Voids 1 1 - Exam - Constitutional General appearance: no acute distress - EENT Eyes: EOMI, PERRLA ENT: hearing grossly normal - Neck mild generalized soft tissue swelling and venous prominence Neck: no lymphadenopathy Thyroid: bilateral: normal size - Respiratory Respiratory: right: diminished, rhonchi - Cardiovascular Rhythm: regular Heart sounds: normal: S1, S2 - Gastrointestinal General gastrointestinal: normal bowel sounds, soft - Integumentary Integumentary: flushed (face and neck, UE) - Neurologic Neurologic: CNII-XII intact - Musculoskeletal b/l UE swelling, mild R > L Musculoskeletal: strength equal bilaterally - Psychiatric Psychiatric: A&O x's 3, appropriate affect - Labs CBC & Chem 7: 03/27/21 08:30 03/27/21 08:30 Labs: Abnormal Lab Results - Last 24 Hours (Table) 03/26/21 03/26/21 03/27/21 Range/Units 14:28 20:57 06:23 RBC (4.30-5.90) m/uL Hgb (13.0-17.5) gm/dL Hct (39.0-53.0) % Plt Count (150-450) k/uL Neutrophils # (1.3-7.7) k/uL Sodium (137-145) mmol/L Creatinine (0.66-1.25) mg/dL Glucose (74-99) mg/dL POC Glucose (mg/dL) 279 H 139 H (75-99) mg/dL Coronavirus (PCR) Detected A (Not Detectd) 03/27/21 03/27/21 03/27/21 Range/Units 08:30 08:30 11:47 RBC 3.64 L (4.30-5.90) m/uL Hgb 11.1 L (13.0-17.5) gm/dL Hct 34.6 L (39.0-53.0) % Plt Count 552 H (150-450) k/uL Neutrophils # 8.9 H (1.3-7.7) k/uL Sodium 130 L (137-145) mmol/L Creatinine 0.65 L (0.66-1.25) mg/dL Glucose 125 H (74-99) mg/dL POC Glucose (mg/dL) 146 H (75-99) mg/dL Coronavirus (PCR) (Not Detectd) Assessment and Plan (1) COVID-19 Narrative/Plan: Testing positive for COVID on 03/26/21 Current Visit: Yes Status: Acute Code(s): U07.1 - COVID-19 SNOMED Code(s): 425444134 Plan: Comments: EKG image reviewed CT scan - chest: report reviewed Assessment and Plan (1) Lung mass Narrative/Plan: Dr. Dias has spoken with patient, sister and Pulmonary and have indicated that they will scheduled a biopsy - Review of MRI brain, negative for metastatic disease - The pt will need a PET as an outpt for completion of staging. At this time, there is concern distant disease, for eg, left adrenal mass Current Visit: Yes Status: Acute Code(s): R91.8 - OTHER NONSPECIFIC ABNORMAL FINDING OF LUNG FIELD SNOMED Code(s): 303098181 (2) SVC syndrome Narrative/Plan: The pt has SVC syndrome, with good response re symptoms, whenever he has been on steroids. He has no significant respiratory or swallowing compromise. The pt will continue on IV steroids with dexamethasone, PPI has been ordered for prophylaxis, pepcid Discontinued, Protonix added. - Radiation Oncology was consulted and case discussed in detail. If he remains stable with steroids, can likely hold off on RT till pathologic diagnosis is established. If the diagnosis is SCLC or lymphoma, then rapid response can be achieved by upfront systemic therapy Dr. Dias has discussed in detail with patient, sister and ER physician regarding the concern about involvement of a pulmonary artery branch. The pt has no clinical evidence of bleeding. It was d/w him and his sister that a major hemorrhage due to the same at presentation is very uncommon. If a major event of this type were to occur, treatment options would be very limited, even at a tertiary institution. . They expressed understanding, and want to continue to pursue further w/u and treatment locally Current Visit: Yes Status: Acute Code(s): I87.1 - COMPRESSION OF VEIN SNOMED Code(s): 65008508 I have left a message for sister Daniela to update on recent results and answer any outstanding questions. No answer but a message has been left with a way to reach us if needed. Plan: - Obtain tissue Biopsy per Pulmonary - COVID Supportive care per pulm - Await results of pathology for deficnitive diagnosis and appropriate treatment plan - Cnntinue on Dexamethasone for SVC, add Protonix, DC H2 juan miguel as PPI for prophylaxis is recommended - Monitor daily CBC for evidence of bleeding or drop in Hemoglobin - Monitor Metabolic panel related to hyponatremia, likely secondary to SIADH - MRI of Brain negative
--- NOTE | 2021-03-29 13:37 | P.PN ---
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 IR to perform tissue biopsy today, discussed with sister Objective - Vital Signs Vital signs: Vital Signs Temp 97.9 F 03/29/21 11:45 Pulse 82 03/29/21 11:45 Resp 16 03/29/21 11:45 BP 118/67 03/29/21 11:45 Pulse Ox 100 03/29/21 11:45 Intake & Output 03/28/21 03/29/21 03/29/21 18:59 06:59 18:59 Intake Total 1260 Output Total 0 Balance 1260 0 Intake: Oral 1260 Output: Urine 0 Stool 0 Urine/Stool Mix 0 Other: Voiding Method Toilet Toilet Toilet # Voids 1 0 # Bowel Movements 0 - Exam - Constitutional General appearance: no acute distress - EENT Eyes: EOMI, PERRLA ENT: hearing grossly normal - Neck mild generalized soft tissue swelling and venous prominence Neck: no lymphadenopathy Thyroid: bilateral: normal size - Respiratory Respiratory: right: diminished, rhonchi - Cardiovascular Rhythm: regular Heart sounds: normal: S1, S2 - Gastrointestinal General gastrointestinal: normal bowel sounds, soft - Integumentary Integumentary: flushed (face and neck, UE) - Neurologic Neurologic: CNII-XII intact - Musculoskeletal b/l UE swelling, mild R > L Musculoskeletal: strength equal bilaterally - Psychiatric Psychiatric: A&O x's 3, appropriate affect - Labs CBC & Chem 7: 03/29/21 07:30 03/29/21 07:30 Labs: Abnormal Lab Results - Last 24 Hours (Table) 03/28/21 03/28/21 03/29/21 Range/Units 16:46 20:39 05:46 WBC (3.8-10.6) k/uL RBC (4.30-5.90) m/uL Hgb (13.0-17.5) gm/dL Hct (39.0-53.0) % Plt Count (150-450) k/uL Neutrophils # (1.3-7.7) k/uL Lymphocytes # (1.0-4.8) k/uL Sodium (137-145) mmol/L Chloride (98-107) mmol/L Carbon Dioxide (22-30) mmol/L BUN (9-20) mg/dL Glucose (74-99) mg/dL POC Glucose (mg/dL) 160 H 176 H 152 H (75-99) mg/dL 03/29/21 03/29/21 03/29/21 Range/Units 07:30 07:30 11:34 WBC 13.7 H (3.8-10.6) k/uL RBC 3.78 L (4.30-5.90) m/uL Hgb 11.4 L (13.0-17.5) gm/dL Hct 35.8 L (39.0-53.0) % Plt Count 585 H (150-450) k/uL Neutrophils # 12.3 H (1.3-7.7) k/uL Lymphocytes # 0.9 L (1.0-4.8) k/uL Sodium 129 L (137-145) mmol/L Chloride 94 L (98-107) mmol/L Carbon Dioxide 32 H (22-30) mmol/L BUN 24 H (9-20) mg/dL Glucose 136 H (74-99) mg/dL POC Glucose (mg/dL) 164 H (75-99) mg/dL Assessment and Plan (1) COVID-19 Narrative/Plan: Testing positive for COVID on 03/26/21 Current Visit: Yes Status: Acute Code(s): U07.1 - COVID-19 SNOMED Code(s): 405221336 Plan: Comments: EKG image reviewed CT scan - chest: report reviewed Assessment and Plan (1) Lung mass Narrative/Plan: Dr. Dias has spoken with patient, sister and Pulmonary and have indicated that they will scheduled a biopsy - Review of MRI brain, negative for metastatic disease - The pt will need a PET as an outpt for completion of staging. At this time, there is concern distant disease, for eg, left adrenal mass Current Visit: Yes Status: Acute Code(s): R91.8 - OTHER NONSPECIFIC ABNORMAL FINDING OF LUNG FIELD SNOMED Code(s): 067430842 (2) SVC syndrome Narrative/Plan: The pt has SVC syndrome, with good response re symptoms, whenever he has been on steroids. He has no significant respiratory or swallowing compromise. The pt will continue on IV steroids with dexamethasone, PPI with protonix - Radiation Oncology was consulted and case discussed in detail. If he remains stable with steroids, can likely hold off on RT till pathologic diagnosis is established. If the diagnosis is SCLC or lymphoma, then rapid response can be achieved by upfront systemic therapy On day of admission Dr. Dias has discussed in detail with patient, sister and ER physician regarding the concern about involvement of a pulmonary artery branch. The pt has no clinical evidence of bleeding. It was d/w him and his sister that a major hemorrhage due to the same at presentation is very uncommon. If a major event of this type were to occur, treatment options would be very limited, even at a tertiary institution. . They expressed understanding, and want to continue to pursue further w/u and treatment locally Current Visit: Yes Status: Acute Code(s): I87.1 - COMPRESSION OF VEIN SNOMED Code(s): 20757470 I have left a message for sister Daniela to update on recent results and answer any outstanding questions. No answer but a message has been left with a way to reach us if needed. Plan: - Needle biopsy of supraclavicular node this am - continue dex - Await final path and Radiation oncology recs - Sister has asked if he remains stable tomorrow if ok for for discharge, defer to primary team, however if discharged plan to d/c on PO dex and PPI and follow- up with Dr. Dias after path has resulted
--- NOTE | 2021-03-29 14:20 | P.PN ---
Subjective Progress Note Date: 03/29/21 03/29/2021, seeing this patient for a follow-up. This is a 70-year-old male patient with known history of smoking, +[id number] in addition to known history of gout, hyperlipidemia who is currently dealing with what seems to be a mediastinal mass and SVC syndrome with significant swelling of the face and the right upper extremity and the venous system across the chest and the neck area. The patient presented to the hospital with facial swelling and neck swelling in the right upper extremity swelling. CAT scan of the neck and the chest was done and it showed lymphadenopathy, thoracic involving the right hilum and mediastinum. There was also mass effect on the SVC causing SVC syndrome. There was also extrinsic compression and mild narrowing of the right main pulmonary artery and significant narrowing of the right upper lobe and right middle lobe artery branches , and the right superior venous system. There was also severely dilated anterior right upper lobe mass measuring 3.2 cm in size. There was a small right-sided pleural effusion. There was also another suspicion 1.3 cm soft tissue deposits involving left adrenal gland and 1.5 cm soft tissue nodule in the spleen. The patient is doing relatively better. No significant facial swelling on today's evaluation. The arm is slightly swollen. MRI of the brain showed no pathologic enhancement. The patient remains on Decadron 6 mg IV every 6 hours. The patient is going to undergo a biopsy of the mass by interventional radiology. Objective - Vital Signs Vital signs: Vital Signs Temp 97.9 F 03/29/21 11:45 Pulse 82 03/29/21 11:45 Resp 16 03/29/21 11:45 BP 118/67 03/29/21 11:45 Pulse Ox 100 03/29/21 11:45 Intake & Output 03/28/21 03/29/21 03/29/21 18:59 06:59 18:59 Intake Total 1260 240 Output Total 0 Balance 1260 240 Intake: Oral 1260 240 Output: Urine 0 Stool 0 Urine/Stool Mix 0 Other: Voiding Method Toilet Toilet Toilet # Voids 1 2 # Bowel Movements 0 - Exam GENERAL EXAM: Alert, very pleasant 70-year-old male patient, on room air, fairly comfortable in no apparent distress. The patient has mild facial swelling in the venous system over the anterior chest is slightly engorged consistent with SVC syndrome. HEAD: Noted edema of the right face and neck. EYES: Normal reaction of pupils, equal size. NOSE: Clear with pink turbinates. THROAT: No erythema or exudates. NECK: Enlarged lymph node palpable on the right neck. No masses, no JVD. CHEST: No chest wall deformity. Some venous engorgement noted on the chest. LUNGS: Equal air entry with no crackles, wheeze, rhonchi or dullness. CVS: S1 and S2 normal with no audible murmur, regular rhythm. ABDOMEN: No hepatosplenomegaly, normal bowel sounds, no guarding or rigidity. SPINE: No scoliosis or deformity SKIN: No rashes CENTRAL NERVOUS SYSTEM: No focal deficits, tone is normal in all 4 extremities. EXTREMITIES: Edema of the right upper extremity. No clubbing, no cyanosis. Peripheral pulses are intact. - Labs CBC & Chem 7: 03/29/21 07:30 03/29/21 07:30 Labs: Abnormal Lab Results - Last 24 Hours (Table) 03/28/21 03/28/21 03/29/21 Range/Units 16:46 20:39 05:46 WBC (3.8-10.6) k/uL RBC (4.30-5.90) m/uL Hgb (13.0-17.5) gm/dL Hct (39.0-53.0) % Plt Count (150-450) k/uL Neutrophils # (1.3-7.7) k/uL Lymphocytes # (1.0-4.8) k/uL Sodium (137-145) mmol/L Chloride (98-107) mmol/L Carbon Dioxide (22-30) mmol/L BUN (9-20) mg/dL Glucose (74-99) mg/dL POC Glucose (mg/dL) 160 H 176 H 152 H (75-99) mg/dL 03/29/21 03/29/21 03/29/21 Range/Units 07:30 07:30 11:34 WBC 13.7 H (3.8-10.6) k/uL RBC 3.78 L (4.30-5.90) m/uL Hgb 11.4 L (13.0-17.5) gm/dL Hct 35.8 L (39.0-53.0) % Plt Count 585 H (150-450) k/uL Neutrophils # 12.3 H (1.3-7.7) k/uL Lymphocytes # 0.9 L (1.0-4.8) k/uL Sodium 129 L (137-145) mmol/L Chloride 94 L (98-107) mmol/L Carbon Dioxide 32 H (22-30) mmol/L BUN 24 H (9-20) mg/dL Glucose 136 H (74-99) mg/dL POC Glucose (mg/dL) 164 H (75-99) mg/dL Assessment and Plan Plan: 1 Right-sided facial, neck and upper extremity edema being treated in the outpatient setting since 12/2020 for possible angioedema however 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 Right supraclavicular lymphadenopathy measuring up to 2.1 cm extending to the left of the cricoid cartilage. Metastatic disease is considered. The chest revealed conglomerate mediastinal and right hilar lymphadenopathy with milly masses measuring up to nearly 10 cm. There is mass effect with significant narrowing and near occlusion of the SVC. Additional extrinsic compression mildly narrow in the right main pulmonary artery, significant narrowing of the right upper lobe and middle lobe arterial branches and probably direct invasion into and narrowing of the right interlobar segment of the right pulmonary artery. Probable occlusion of the right superior pulmonary vein. There is a spiculated anterior right upper lobe mass measuring 3.2 cm. Reticular changes in the right upper lobe likely due to venous congestion. Patchy change anterior right midlung probably postobstructive pneumonia. Small right pleural effusion. In the upper abdomen a suspicious 1.3 cm soft tissue deposit just above the left adrenal gland and a 1.5 cm soft tissue nodule anterior to the spleen. 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 Currently on Decadron 3 Weight loss secondary to above 4 Chronic tobacco dependence of greater than 50 years, has not smoked since December 2020 5 History of gout. 6 Hyperlipidemia Plan: Findings are highly suspicious for malignancy. The patient has SVC syndrome. Consider underlying small cell lung cancer. Biopsy of the either anterior spinal or the supraclavicular lymph node to be done by interventional radiologist today. He is a high-risk for general anesthesia and bronchoscopy due to his underlying SVC syndrome. Stable and on room air currently Remains on Decadron 6 mg IVP every 6 hours We will continue to follow
[2021-03-29 16:02] VITALS: RESP 18
--- NOTE | 2021-03-29 16:18 | P.PCN ---
Date of Procedure: 03/29/21 Preoperative Diagnosis: adenopathy right neck Procedure(s) Performed: u/s guide core biopsy right neck adenopathy Anesthesia: local Estimated Blood Loss (ml): 5 Pathology: other (in formalin and saline) Condition: stable Disposition: no change Operative Findings: 2 x 20 ga core specimens
--- NOTE | 2021-03-29 16:23 | US ---
EXAMINATION TYPE: US biopsy lymph node DATE OF EXAM: 03/29/2021 HISTORY: Right neck adenopathy. FINDINGS: Maximal barrier technique was utilized. Hand hygiene achieved with soap and water and alco hol-based hand rub. The skin overlying a suitable path to the patient's right neck adenopathy was loc alized with ultrasound and the overlying skin prepped and draped. Ultrasound was utilized with steri le technique. Lidocaine was used for local anesthesia. A skin isaac was made with a scalpel. A 20-ga uge needle was advanced under direct ultrasound guidance and core specimen obtained of the right neck adenopathy. 2 passes were made. Specimen submitted in formalin to Pathology. Following the procedu re, hemostasis achieved and the patient is discharged in stable condition without complication. IMPRESSION:STATUS POST ULTRASOUND GUIDED CORE BIOPSY OF right neck adenopathy, PATHOLOGY IS PENDING. THIS PROCEDURE IS PERFORMED BY THE UNDERSIGNED.
[2021-03-29 16:47] LABS: Glucose,Whole Blood 100 mg/dL (75-99)
--- NOTE | 2021-03-29 18:43 | P.PN ---
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 In reading pulmonary recommendations the plan will be to move forward with tissue biopsy of supraclavicular node this week by Interventional radiology. I did discuss MRI as negative for metastatic disease with patient's sister. Objective - Vital Signs Vital signs: Vital Signs Temp 98 F 03/28/21 13:10 Pulse 88 03/28/21 13:10 Resp 18 03/28/21 13:10 BP 130/79 03/28/21 13:10 Pulse Ox 98 03/28/21 13:10 Intake & Output 03/27/21 03/28/21 03/28/21 18:59 06:59 18:59 Intake Total 480 1080 Balance 480 1080 Intake: Oral 480 1080 Other: Voiding Method Toilet Toilet Toilet # Voids 2 1 - Exam - Constitutional General appearance: no acute distress - EENT Eyes: EOMI, PERRLA ENT: hearing grossly normal - Neck mild generalized soft tissue swelling and venous prominence Neck: no lymphadenopathy Thyroid: bilateral: normal size - Respiratory Respiratory: right: diminished, rhonchi - Cardiovascular Rhythm: regular Heart sounds: normal: S1, S2 - Gastrointestinal General gastrointestinal: normal bowel sounds, soft - Integumentary Integumentary: flushed (face and neck, UE) - Neurologic Neurologic: CNII-XII intact - Musculoskeletal b/l UE swelling, mild R > L Musculoskeletal: strength equal bilaterally - Psychiatric Psychiatric: A&O x's 3, appropriate affect - Labs CBC & Chem 7: 03/27/21 08:30 03/28/21 08:27 Labs: Abnormal Lab Results - Last 24 Hours (Table) 03/27/21 03/27/21 03/28/21 Range/Units 16:30 20:00 06:02 Sodium (137-145) mmol/L Chloride (98-107) mmol/L Glucose (74-99) mg/dL POC Glucose (mg/dL) 158 H 111 H 134 H (75-99) mg/dL 03/28/21 03/28/21 Range/Units 08:27 11:56 Sodium 129 L (137-145) mmol/L Chloride 95 L (98-107) mmol/L Glucose 168 H (74-99) mg/dL POC Glucose (mg/dL) 124 H (75-99) mg/dL Assessment and Plan (1) COVID-19 Narrative/Plan: Testing positive for COVID on 03/26/21 Current Visit: Yes Status: Acute Code(s): U07.1 - COVID-19 SNOMED Code(s): 948893072 Plan: Comments: EKG image reviewed CT scan - chest: report reviewed Assessment and Plan (1) Lung mass Narrative/Plan: Dr. Dias has spoken with patient, sister and Pulmonary and have indicated that they will scheduled a biopsy - Review of MRI brain, negative for metastatic disease - The pt will need a PET as an outpt for completion of staging. At this time, there is concern distant disease, for eg, left adrenal mass Current Visit: Yes Status: Acute Code(s): R91.8 - OTHER NONSPECIFIC ABNORMAL FINDING OF LUNG FIELD SNOMED Code(s): 362149842 (2) SVC syndrome Narrative/Plan: The pt has SVC syndrome, with good response re symptoms, whenever he has been on steroids. He has no significant respiratory or swallowing compromise. The pt will continue on IV steroids with dexamethasone, PPI has been ordered for prophylaxis, pepcid Discontinued, Protonix added. - Radiation Oncology was consulted and case discussed in detail. If he remains stable with steroids, can likely hold off on RT till pathologic diagnosis is established. If the diagnosis is SCLC or lymphoma, then rapid response can be achieved by upfront systemic therapy Dr. Dias has discussed in detail with patient, sister and ER physician regarding the concern about involvement of a pulmonary artery branch. The pt has no clinical evidence of bleeding. It was d/w him and his sister that a major hemorrhage due to the same at presentation is very uncommon. If a major event of this type were to occur, treatment options would be very limited, even at a tertiary institution. . They expressed understanding, and want to continue to pursue further w/u and treatment locally Current Visit: Yes Status: Acute Code(s): I87.1 - COMPRESSION OF VEIN SNOMED Code(s): 54465981 I have left a message for sister Daniela to update on recent results and answer any outstanding questions. No answer but a message has been left with a way to reach us if needed. Plan: - Obtain tissue Biopsy per Interventional Radiology of supraclavicular Node - COVID Supportive care per pulm - Await Biopsy and results of pathology for definitive diagnosis and appropriate treatment plan - Continue on Dexamethasone for SVC, add Protonix, DC H2 juan miguel as PPI for prophylaxis is recommended - Monitor daily CBC for evidence of bleeding or drop in Hemoglobin - Monitor Metabolic panel related to hyponatremia, likely secondary to SIADH - MRI of Brain negative and reviewed with patient and sister.
[2021-03-29 19:09] LABS: Folate, Serum 3.8 ng/mL (4.40-31.00)
[2021-03-29 20:08] LABS: Glucose,Whole Blood 166 mg/dL (75-99)
[2021-03-30] MEDS: SODIUM CHLORIDE 0.9% 1,000 ML IV SCH ×2 (00:27→11:54)
[2021-03-30] MEDS: HEPARIN SODIUM,PORCINE/PF 5,000 UNIT/0.5 ML SYRINGE SQ SCH ×2 (00:31→08:29)
[2021-03-30] MEDS: DEXAMETHASONE SOD PHOSPHATE 10 MG/ML 1 ML VIAL IVP SCH ×3 (00:31→12:03)
[2021-03-30] MEDS: INSULIN ASPART (NovoLOG) 100 UNIT/ML VIAL SQ SCH ×2 (06:15→11:55)
[2021-03-30 06:17] LABS: Glucose,Whole Blood 137 mg/dL (75-99)
[2021-03-30 08:13] LABS: Basophils % (A) 0 %; Eosinophils % (A) 0 %; HCT 37.2 % (39.0-53.0); Lymphocytes % (A) 8 %; MCH 30.7 pg (25.0-35.0); MCHC 32.1 g/dL (31.0-37.0); MCV 95.5 fL (80.0-100.0); Mean Platelet Volume 6.8; Monocytes # (A) 0.4 k/uL (0-1.0); Monocytes % (A) 3 %; Neutrophils # (A) 11.7 k/uL (1.3-7.7); Neutrophils % (A) 88 %; Platelet Count 561 k/uL (150-450); RBC 3.89 m/uL (4.30-5.90); WBC 13.2 k/uL (3.8-10.6)
[2021-03-30] MEDS: amLODIPine 5 MG TAB PO SCH (08:29)
[2021-03-30] MEDS: LORATADINE 10 MG TAB PO SCH (08:29)
[2021-03-30] MEDS: lisinopriL 5 MG TAB PO SCH (08:30)
[2021-03-30] MEDS: FAMOTIDINE 20 MG TAB PO SCH (08:30)
[2021-03-30 08:31] LABS: ALT 15 U/L (4-49); AST 19 U/L (17-59); African American GFR (CKD) >90 (>60 ml/min/1.73 sqM); Albumin 3.4 g/dL (3.5-5.0); Alkaline Phosphatase 59 U/L (38-126); Anion Gap 5 mmol/L; Blood Urea Nitrogen 25 mg/dL (9-20); Calcium 9.3 mg/dL (8.4-10.2); Carbon Dioxide 30 mmol/L (22-30); Chloride 93 mmol/L (98-107); Glucose 155 mg/dL (74-99); Non-African American GFR(CKD) >90 (>60 ml/min/1.73 sqM); Potassium 4.7 mmol/L (3.5-5.1); Sodium 128 mmol/L (137-145); Total Bilirubin 0.5 mg/dL (0.2-1.3); Total Protein 6.4 g/dL (6.3-8.2)
--- NOTE | 2021-03-30 10:58 | P.PN ---
Subjective Progress Note Date: 03/30/21 03/29/2021, seeing this patient for a follow-up. This is a 70-year-old male patient with known history of smoking, +[id number] in addition to known history of gout, hyperlipidemia who is currently dealing with what seems to be a mediastinal mass and SVC syndrome with significant swelling of the face and the right upper extremity and the venous system across the chest and the neck area. The patient presented to the hospital with facial swelling and neck swelling in the right upper extremity swelling. CAT scan of the neck and the chest was done and it showed lymphadenopathy, thoracic involving the right hilum and mediastinum. There was also mass effect on the SVC causing SVC syndrome. There was also extrinsic compression and mild narrowing of the right main pulmonary artery and significant narrowing of the right upper lobe and right middle lobe artery branches , and the right superior venous system. There was also severely dilated anterior right upper lobe mass measuring 3.2 cm in size. There was a small right-sided pleural effusion. There was also another suspicion 1.3 cm soft tissue deposits involving left adrenal gland and 1.5 cm soft tissue nodule in the spleen. The patient is doing relatively better. No significant facial swelling on today's evaluation. The arm is slightly swollen. MRI of the brain showed no pathologic enhancement. The patient remains on Decadron 6 mg IV every 6 hours. The patient is going to undergo a biopsy of the mass by interventional radiology. On today's evaluation of 03/30/2021, the patient is being seen for a follow-up. The patient has undergone a fine-needle aspiration of the neck mass. No measures facial swelling. No major swelling. No other new complaints otherwise for now. The surgical procedure was done without any competitions. Otherwise, the patient has those other specific complaints. No chest pain. Arm and neck swelling is improved and the patient remains on Decadron 6 mg IV every 6 hours. The patient is to be followed up with radiation oncology and medical oncology. Final pathologic diagnoses not been established yet. Objective - Vital Signs Vital signs: Vital Signs Temp 97.8 F 03/29/21 14:50 Pulse 75 03/30/21 04:01 Resp 18 03/30/21 04:01 BP 130/78 03/30/21 04:01 Pulse Ox 98 03/30/21 04:01 Intake & Output 01/03/30/21 03/30/21 18:59 06:59 18:59 Intake Total 360 420 Output Total 0 0 Balance 360 0 420 Intake: Oral 360 420 Output: Urine 0 Stool 0 0 Urine/Stool Mix 0 Other: Voiding Method Toilet Toilet # Voids 2 1 1 # Bowel Movements 0 - Exam GENERAL EXAM: Alert, very pleasant 70-year-old male patient, on room air, fairly comfortable in no apparent distress. The patient has mild facial swelling in the venous system over the anterior chest is slightly engorged consistent with SVC syndrome. HEAD: Noted edema of the right face and neck. EYES: Normal reaction of pupils, equal size. NOSE: Clear with pink turbinates. THROAT: No erythema or exudates. NECK: Enlarged lymph node palpable on the right neck. No masses, no JVD. CHEST: No chest wall deformity. Some venous engorgement noted on the chest. LUNGS: Equal air entry with no crackles, wheeze, rhonchi or dullness. CVS: S1 and S2 normal with no audible murmur, regular rhythm. ABDOMEN: No hepatosplenomegaly, normal bowel sounds, no guarding or rigidity. SPINE: No scoliosis or deformity SKIN: No rashes CENTRAL NERVOUS SYSTEM: No focal deficits, tone is normal in all 4 extremities. EXTREMITIES: Edema of the right upper extremity. No clubbing, no cyanosis. Peripheral pulses are intact. - Labs CBC & Chem 7: 03/30/21 07:41 03/30/21 07:41 Labs: Abnormal Lab Results - Last 24 Hours (Table) 03/29/21 03/29/21 03/29/21 Range/Units 07:30 11:34 16:45 WBC (3.8-10.6) k/uL RBC (4.30-5.90) m/uL Hgb (13.0-17.5) gm/dL Hct (39.0-53.0) % Plt Count (150-450) k/uL Neutrophils # (1.3-7.7) k/uL Sodium (137-145) mmol/L Chloride (98-107) mmol/L BUN (9-20) mg/dL Glucose (74-99) mg/dL POC Glucose (mg/dL) 164 H 100 H (75-99) mg/dL Albumin (3.5-5.0) g/dL Vitamin D 25-Hydroxy 13.1 L (30.0-100.0) ng/mL Folate 3.80 L (4.40-31.00) ng/mL 03/29/21 03/30/21 03/30/21 Range/Units 20:06 06:13 07:41 WBC 13.2 H (3.8-10.6) k/uL RBC 3.89 L (4.30-5.90) m/uL Hgb 12.0 L (13.0-17.5) gm/dL Hct 37.2 L (39.0-53.0) % Plt Count 561 H (150-450) k/uL Neutrophils # 11.7 H (1.3-7.7) k/uL Sodium (137-145) mmol/L Chloride (98-107) mmol/L BUN (9-20) mg/dL Glucose (74-99) mg/dL POC Glucose (mg/dL) 166 H 137 H (75-99) mg/dL Albumin (3.5-5.0) g/dL Vitamin D 25-Hydroxy (30.0-100.0) ng/mL Folate (4.40-31.00) ng/mL 03/30/21 Range/Units 07:41 WBC (3.8-10.6) k/uL RBC (4.30-5.90) m/uL Hgb (13.0-17.5) gm/dL Hct (39.0-53.0) % Plt Count (150-450) k/uL Neutrophils # (1.3-7.7) k/uL Sodium 128 L (137-145) mmol/L Chloride 93 L (98-107) mmol/L BUN 25 H (9-20) mg/dL Glucose 155 H (74-99) mg/dL POC Glucose (mg/dL) (75-99) mg/dL Albumin 3.4 L (3.5-5.0) g/dL Vitamin D 25-Hydroxy (30.0-100.0) ng/mL Folate (4.40-31.00) ng/mL Assessment and Plan Plan: 1 Right-sided facial, neck and upper extremity edema being treated in the outpatient setting since 12/2020 for possible angioedema however 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 Right supraclavicular lymphadenopathy measuring up to 2.1 cm extending to the left of the cricoid cartilage. Metastatic disease is considered. The chest revealed conglomerate mediastinal and right hilar lymphadenopathy with milly masses measuring up to nearly 10 cm. There is mass effect with significant narrowing and near occlusion of the SVC. Additional extrinsic compression mildly narrow in the right main pulmonary artery, significant narrowing of the right upper lobe and middle lobe arterial branches and probably direct invasion into and narrowing of the right interlobar segment of the right pulmonary artery. Probable occlusion of the right superior pulmonary vein. There is a spiculated anterior right upper lobe mass measuring 3.2 cm. Reticular changes in the right upper lobe likely due to venous congestion. Patchy change anterior right midlung probably postobstructive pneumonia. Small right pleural effusion. In the upper abdomen a suspicious 1.3 cm soft tissue deposit just above the left adrenal gland and a 1.5 cm soft tissue nodule anterior to the spleen. 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 Currently on Decadron 3 Weight loss secondary to above 4 Chronic tobacco dependence of greater than 50 years, has not smoked since December 2020 5 History of gout. 6 Hyperlipidemia Plan: FNA of the neck mass was completed. Final pathologic diagnoses not available. Findings are highly suspicious for malignancy. The patient has SVC syndrome. Consider underlying small cell lung cancer. Biopsy of the either anterior spinal or the supraclavicular lymph node to be done by interventional radiologist yesterday. Clinically stable Discussed with oncology and radiation oncology and the patient may potentially go home as long as the patient remains stable to be followed up very shortly probably the next few days with oncology to discuss the results of the biopsy and, with treatment plan. Stable and on room air currently Continue Decadron also an outpatient basis Consider discharge home today. The patient is on room air oxygen
[2021-03-30 11:43] LABS: Glucose,Whole Blood 101 mg/dL (75-99)
[2021-03-30 12:37] VITALS: BP 135/82; PULSE 63; TEMP 97.3
--- NOTE | 2021-03-30 13:50 | P.PN ---
Subjective Progress Note Date: 03/30/21 Principal diagnosis: superior vena cava syndrome, status post biopsy right supraclavicular mass in follow-up today patient is ambulating independently, he is breathing fairly well with activity, he is not complaining of any pain. He is able to swallow. Objective - Vital Signs Vital signs: Vital Signs Temp 97.3 F L 03/30/21 12:36 Pulse 63 03/30/21 12:36 Resp 18 03/30/21 12:36 BP 135/82 03/30/21 12:36 Pulse Ox 93 L 03/30/21 12:36 Intake & Output 03/29/21 03/30/21 03/30/21 18:59 06:59 18:59 Intake Total 360 420 Output Total 0 0 Balance 360 0 420 Intake: Oral 360 420 Output: Urine 0 Stool 0 0 Urine/Stool Mix 0 Other: Voiding Method Toilet Toilet # Voids 2 1 1 # Bowel Movements 0 - Constitutional General appearance: Present: cooperative, no acute distress, thin - EENT Eyes: Present: anicteric sclerae, EOMI ENT: Present: hearing grossly normal - Neck Details: visible right supraclavicular mass - Respiratory Details: respirations even and unlabored wall ambulating - Neurologic Neurologic: Present: CNII-XII intact (grossly) - Musculoskeletal Musculoskeletal: Present: strength equal bilaterally - Psychiatric Psychiatric: Present: A&O x's 3, appropriate affect, intact judgment & insight - Labs CBC & Chem 7: 03/30/21 07:41 03/30/21 07:41 Labs: Abnormal Lab Results - Last 24 Hours (Table) 03/29/21 03/29/21 03/29/21 Range/Units 07:30 16:45 20:06 WBC (3.8-10.6) k/uL RBC (4.30-5.90) m/uL Hgb (13.0-17.5) gm/dL Hct (39.0-53.0) % Plt Count (150-450) k/uL Neutrophils # (1.3-7.7) k/uL Sodium (137-145) mmol/L Chloride (98-107) mmol/L BUN (9-20) mg/dL Glucose (74-99) mg/dL POC Glucose (mg/dL) 100 H 166 H (75-99) mg/dL Albumin (3.5-5.0) g/dL Vitamin D 25-Hydroxy 13.1 L (30.0-100.0) ng/mL Folate 3.80 L (4.40-31.00) ng/mL 03/30/21 03/30/21 03/30/21 Range/Units 06:13 07:41 07:41 WBC 13.2 H (3.8-10.6) k/uL RBC 3.89 L (4.30-5.90) m/uL Hgb 12.0 L (13.0-17.5) gm/dL Hct 37.2 L (39.0-53.0) % Plt Count 561 H (150-450) k/uL Neutrophils # 11.7 H (1.3-7.7) k/uL Sodium 128 L (137-145) mmol/L Chloride 93 L (98-107) mmol/L BUN 25 H (9-20) mg/dL Glucose 155 H (74-99) mg/dL POC Glucose (mg/dL) 137 H (75-99) mg/dL Albumin 3.4 L (3.5-5.0) g/dL Vitamin D 25-Hydroxy (30.0-100.0) ng/mL Folate (4.40-31.00) ng/mL 03/30/21 Range/Units 11:36 WBC (3.8-10.6) k/uL RBC (4.30-5.90) m/uL Hgb (13.0-17.5) gm/dL Hct (39.0-53.0) % Plt Count (150-450) k/uL Neutrophils # (1.3-7.7) k/uL Sodium (137-145) mmol/L Chloride (98-107) mmol/L BUN (9-20) mg/dL Glucose (74-99) mg/dL POC Glucose (mg/dL) 101 H (75-99) mg/dL Albumin (3.5-5.0) g/dL Vitamin D 25-Hydroxy (30.0-100.0) ng/mL Folate (4.40-31.00) ng/mL - Imaging and Cardiology MRI - head: report reviewed Assessment and Plan (1) Lung mass Current Visit: Yes Status: Acute Priority: High Code(s): R91.8 - OTHER NONSPECIFIC ABNORMAL FINDING OF LUNG FIELD SNOMED Code(s): 314455803 (2) Mediastinal mass Current Visit: Yes Status: Acute Priority: High Code(s): J98.59 - OTHER DISEASES OF MEDIASTINUM, NOT ELSEWHERE CLASSIFIED SNOMED Code(s): 20246178 (3) SVC syndrome Current Visit: Yes Status: Acute Priority: High Code(s): I87.1 - COMPRESS ION OF VEIN SNOMED Code(s): 32160394 Plan: Patient is status post biopsy of the supraclavicular mass. Pending pathology results. Based on the pathology results tissue may be requested to be sent for next generation sequencing, PDL 1. Reviewed results of MRI of the brain with pt, negative for metastatic/suspicious lesions. PET scan for staging outpatient is planned. This will be scheduled by the Oncology office. Patient will be contacted with appointment date and time. He was told the same and he verbalizes understanding. Superior Vena cava syndrome, patient seems to have improvement in his facial redness and otherwise mild symptoms as long as he is on steroids. Dexamethasone has been sent to his [facility] at his request. 4 mg by mouth every 8 hours. Taper will be provided once patient has started some sort of treatment. Patient currently has famotidine, full prescription available to him at home. He will continue that prescription for now. There is a follow-up appointment in the chart for patient with Dr. Dias on 04/07. Case was discussed with the Attending team. Agree with their plan for discharge. Time with Patient: Greater than 30
== END 2021-03-30 13:39 | disposition home or self-care (01) | DRG 264 ==
LOC: EC 11:07 → 5NMEDONC 14:09 → 3SCARD 15:35
PROVIDERS: ADMIT Internal Medicine; ATTEND Internal Medicine
PROC: 07B13ZX Excision of Right Neck Lymphatic, Percutaneous Approach, Diagnostic (ICD-10-PCS; principal; 2021-03-29)
DX: I82.210 Acute embolism and thrombosis of superior vena cava (principal); U07.1 COVID-19; I87.1 Compression of vein; C34.92 Malignant neoplasm of unspecified part of left bronchus or lung; E87.1 Hypo-osmolality and hyponatremia; J90 Pleural effusion, not elsewhere classified; C77.0 Secondary and unspecified malignant neoplasm of lymph nodes of head, face and neck; I28.8 Other diseases of pulmonary vessels; E78.5 Hyperlipidemia, unspecified; M10.9 Gout, unspecified; E27.8 Other specified disorders of adrenal gland; E86.1 Hypovolemia; F17.290 Nicotine dependence, other tobacco product, uncomplicated; Z79.82 Long term (current) use of aspirin; Z80.0 Family history of malignant neoplasm of digestive organs; Z80.52 Family history of malignant neoplasm of bladder; M19.90 Unspecified osteoarthritis, unspecified site; M79.89 Other specified soft tissue disorders
CPT/HCPCS: 36415; 38505; 70491; 70553; 71045; 71260; 76942; 80048; 80053; 82306; 82565; 82607; 82746; 83690; 83735; 83880; 84484; 84520; 85025; 85610; 85730; 87635; 88305; 93005; 99285

== ENCOUNTER 2021-04-12 06:22 | Day surgery (SDC) | payer MEDICARE ==
[~2021-04-12 06:22] MED LIST changes: +ALBUTEROL NEB (CONC) 2.5 MG/0.5 ML INHALATION ONE; -CHLORPHEN-HYDROcod 8-10mg/5ml 5 ML ORAL.SYRG PO PRN; -DEXAMETHASONE SOD PHOSPHATE 4 MG/ML 1 ML VIAL IV ONE; -HYDROmorphone 0.5 MG/0.5 ML SYRINGE IVP PRN; -LIDOCAINE 1% (10MG/ML) FOR IV START INTRADERMA PRN; +LIDOCAINE 2% (PF) 20 MG/ML 5 ML VIAL INHALATION ONE; +LIDOCAINE VISCOUS 300 MG/15 ML CUP MUCOUS MEM ONE; -MIDAZOLAM 2 MG/2 ML VIAL IV PRN; -MOXIFLOXACIN HCL 0.5% DROPS 3 ML BTL OP PRN; -ONDANSETRON 4 MG/2 ML VIAL IVP ONE; -TETRACAINE 0.5% OPHTH (PF) DROPS 4 ML BTL OP PRN; -TIMOLOL 0.5% OPHTH DROPS 5 ML BTL OP PRN; -guaiFENesin-DM 100-10MG/5ML 10 ML CUP PO PRN
[2021-04-12] MEDS ORDERED: LACTATED RINGERS 1,000 ML IV SCH (12:10)
[2021-04-12 12:31] LABS: ALT 24 U/L (4-49); AST 26 U/L (17-59); African American GFR (CKD) >90 (>60 ml/min/1.73 sqM); Albumin 3.6 g/dL (3.5-5.0); Alkaline Phosphatase 63 U/L (38-126); Anion Gap 7 mmol/L; Blood Urea Nitrogen 22 mg/dL (9-20); Calcium 8.9 mg/dL (8.4-10.2); Carbon Dioxide 28 mmol/L (22-30); Chloride 91 mmol/L (98-107); Glucose 95 mg/dL (74-99); Non-African American GFR(CKD) >90 (>60 ml/min/1.73 sqM); Potassium 3.7 mmol/L (3.5-5.1); Sodium 126 mmol/L (137-145); Total Bilirubin 0.9 mg/dL (0.2-1.3); Total Protein 6.6 g/dL (6.3-8.2)
[2021-04-12] MEDS ORDERED: fentaNYL (PF) 50 MCG/ML 2 ML AMP ONE (12:34)
[2021-04-12] MEDS ORDERED: MIDAZOLAM 2 MG/2 ML VIAL ONE (12:34)
[2021-04-12] MEDS ORDERED: LIDOCAINE 1% INJ 10MG/ML (20 ML MDV) ONE (12:34)
[2021-04-12] MEDS ORDERED: SUCCINYLCHOLINE CHLORIDE 100 MG/5 ML SYR IV ONE (12:34)
[2021-04-12] MEDS ORDERED: PROPOFOL 10 MG/ML 20 ML VIAL IV ONE (12:34)
[2021-04-12] MEDS ORDERED: PHENYLEPHRINE-0.9% NACL SYG 1,000 MCG/10 ML SYRINGE ONE (12:34)
--- NOTE | 2021-04-12 13:18 | P.PCN ---
Date of Procedure: 04/12/21 Operative Findings: Preoperative Diagnosis: 1 endobronchial tumor, right upper lobe 2 mediastinal lymphadenopathy Postoperative Diagnosis: 1 right upper lobe mass, endobronchial tumor 2 mediastinal lymphadenopathy Procedure(s) Performed: 1 flexible bronchoscopy, airway inspection, endobronchial biopsies right upper lobe tumor, endobronchial brushings right upper lobe tumor, bronchioloalveolar lavage right upper lobe tumor 2 endoscopic ultrasound (EBUS) 3 transbronchial needle aspirate of station 4R and station 7 lymph nodes Surgeon: Pancho Watson Estimated Blood Loss (ml): 0 Pathology: other Condition: stable Disposition: same day Operative Findings: After obtaining the consent the patient was taken to the OR suite he was intubated and put on MV by anesthesia then the scope was advanced to the ET tube until the Trachea was seen and it was normal and then the maximiliano appears normal then the scope advanced to the left main and DAGO LB1-LB3 were seen and no endobronchial lesions were seen then the scope advanced to the lingula and the LB4 and LB5 were seen and no endobronchial lesions were seen the scope retracted and advanced to the left lower lobes LB6 to LB12 were seen one by one and no endobronchial lesions, then the scope was retracted back to the maximiliano and advanced to the Right main and right mainstem bronchus was within normal limits. The bronchoscope was then moved to the right upper lobe.. There was endobronchial tumor originating from the anterior wall of the right upper lobe bronchus and invading into the right upper lobe bronchus causing significant narrowing of the radius segments of the right upper lobe including RB1, RB 2 and RB 3. and advanced to the BI and RML RB4 and RB5 were seen and no endobronchial lesions were seen then it was retracted and advanced to the RLL RB6 to RB12 were seen one by one and no endobronchial lesions. Under direct visualization, endobronchial biopsies of the right upper lobe endobronchial tumor was done. The service of the tumor was friable, necrotic and irregular. Multiple biopsies obtained. The tumor itself was breaking into multiple pieces and several fragments are obtained from the right upper lobe. Following that, and about the brushings of the right upper lobe endobronchial tumor was done and the right upper lobe bronchus was given a bronchioloalveolar lavage with total of 80 mL of fluid was infused and 20 mL was aspirated. The flexible bronchoscope was removed. The EBUS bronchoscope was inserted. Then EBUS was used and the lymph nodes were examined. Direct measurement of the mediastinal lymph nodes revealed a very large more than 3 cm subcarinal station 7 lymph node and more than 4 cm station 4R right paratracheal lymph node. On direct EBUS visualization, transbronchial needle aspirate of station 4R was done with a total of 3 passes and transbronchial needle aspirate of station 7 was done with a total of 4 passes. Adequacy of the samples were confirmed by anesthesia the bedside. No complications. No endobronchial bleeding. The preliminary pathologic evaluation was consistent with small cell lung cancer. Bronchoscope was removed. The flexible bronchoscope was inserted. Therapeutic airway suctioning was done. All instruments were taken out and the patient was left to anesthesia to extubate.
[2021-04-12] MEDS ORDERED: SODIUM CHLORIDE 0.9% 500 ML 500 ML IV ONE (13:21)
[2021-04-12 13:40] VITALS: TEMP 97
[2021-04-12 14:25] VITALS: RESP 20
--- NOTE | 2021-04-12 14:44 | XR ---
EXAMINATION TYPE: XR chest 1V DATE OF EXAM: 04/12/2021 COMPARISON: 03/27/2021 HISTORY: 70-year-old male postop bronchoscopy TECHNIQUE: Single frontal view of the chest is obtained. FINDINGS: Heart normal size. Hyperinflation. Right hilar and right paratracheal soft tissue redemonstrated. 3.0 cm right upper lobe mass redemonstrated. Some interstitial prominence in the right upper lobe is unc hanged. No appreciable pneumothorax. No new consolidation or pleural effusion seen. IMPRESSION: COPD with known right hilar/right paratracheal neoplasm and right upper lobe mass. No appreciable pne umothorax.
[2021-04-12 14:47] VITALS: BP 127/72; PULSE 71
== END 2021-04-12 15:17 | disposition home or self-care (01) ==
LOC: ORWHC2ENDO 06:22
PROVIDERS: ATTEND Internal Medicine Critical Care Medicine
DX: R59.0 Localized enlarged lymph nodes (principal)
CPT/HCPCS: 31625; 31623; 31624; 31652; 80053; 71045; J2250; J2001; J3010; J2370; J0330; J2704; 88104; 88108; 88173; 88305; 88341; 88342

== ENCOUNTER 2021-04-30 15:50 | Inpatient (IN) | payer OTHER, MEDICARE ==
[2021-04-30] MEDS ORDERED: SODIUM CHLORIDE 0.9% 1,000 ML IV ONE (18:57)
[2021-04-30 19:37] LABS: Glucose,Whole Blood 118 mg/dL (75-99)
[2021-04-30 19:45] LABS: Basophils % (A) 0 %; Eosinophils # (A) 0.1 k/uL (0-0.7); Eosinophils % (A) 1 %; HCT 34.8 % (39.0-53.0); HGB 12.1 gm/dL (13.0-17.5); Lymphocytes # (A) 0.7 k/uL (1.0-4.8); Lymphocytes % (A) 6 %; MCH 31.3 pg (25.0-35.0); MCHC 34.8 g/dL (31.0-37.0); Mean Platelet Volume 6.6; Monocytes # (A) 0.1 k/uL (0-1.0); Monocytes % (A) 1 %; Neutrophils # (A) 10.2 k/uL (1.3-7.7); Neutrophils % (A) 92 %; Platelet Count 250 k/uL (150-450); RBC 3.87 m/uL (4.30-5.90); RDW 15.6 % (11.5-15.5); WBC 11.1 k/uL (3.8-10.6)
[2021-04-30 19:50] LABS: Appearance,Urine Clear (Clear); Bilirubin,Urine Negative (Negative); Blood,Urine Negative (Negative); Color,Urine Colorless; Glucose,Urine (UA) Negative (Negative); Ketones,Urine Negative (Negative); Leukocyte Esterase,Urine Negative (Negative); Nitrite,Urine Negative (Negative); PH, Urine 5.5 (5.0-8.0); Protein,Urine Negative (Negative); Specific Gravity,Urine 1.006 (1.001-1.035); Urobilinogen,Urine <2.0 mg/dL (<2.0)
[2021-04-30 19:57] LABS: INR 0.9 (<1.2); Partial Thromboplastin Time 24.2 sec (22.0-30.0); Prothrombin Time 9.5 sec (9.0-12.0)
[2021-04-30 19:58] LABS: ALT 30 U/L (4-49); AST 35 U/L (17-59); African American GFR (CKD) >90 (>60 ml/min/1.73 sqM); Albumin 3.5 g/dL (3.5-5.0); Alkaline Phosphatase 66 U/L (38-126); Anion Gap 8 mmol/L; Blood Urea Nitrogen 15 mg/dL (9-20); Calcium 8.2 mg/dL (8.4-10.2); Carbon Dioxide 24 mmol/L (22-30); Chloride 81 mmol/L (98-107); Glucose 110 mg/dL (74-99); Non-African American GFR(CKD) >90 (>60 ml/min/1.73 sqM); Potassium 4.1 mmol/L (3.5-5.1); Total Bilirubin 1.1 mg/dL (0.2-1.3); Total Protein 6.1 g/dL (6.3-8.2)
--- NOTE | 2021-04-30 20:00 | CT ---
EXAMINATION TYPE: CT brain wo con DATE OF EXAM: 04/30/2021 COMPARISON: None HISTORY: ams CT DLP: 1186.4 mGycm Automated exposure control for dose reduction was used. Images of the brain obtained without contrast. There is some cerebral cortical atrophy. There is no mass effect or midline shift. There is no sign o f intracranial hemorrhage. Calvarium is intact. There is normal aeration of the mastoid sinuses. IMPRESSION: Cerebral atrophy. No acute intracranial abnormality.
[2021-04-30 20:17] LABS: Sodium 113 mmol/L (137-145)
--- NOTE | 2021-04-30 20:17 | XR ---
EXAMINATION TYPE: XR chest 2V DATE OF EXAM: 04/30/2021 COMPARISON: 04/12/2021 HISTORY: Altered mental status TECHNIQUE: 2 views FINDINGS: There is a 7 x 4 cm masslike density at the right pulmonary hilum. There is 3 cm irregular somewhat rounded mass right upper lobe. Left lung is clear. There is no heart failure. There is no pl eural effusion. Bony thorax appears intact. IMPRESSION: Right upper lobe mass with large right hilar mass increased in size compared to old exam and consistent with progression of tumor. No heart failure seen. Normal heart.
[2021-04-30] MEDS ORDERED: LORazepam 2 MG/ML INJ IV STA (20:18)
[2021-04-30] MEDS ORDERED: SODIUM CHLORIDE 3%(HYPERTONIC) 500 ML IV SCH (20:30)
--- NOTE | 2021-04-30 22:47 | ED ---
Altered Mental Status HPI - General Chief Complaint: Altered Mental Status Stated Complaint: Lethargic,Altered Mental Status Time Seen by Provider: 04/30/21 17:17 Source: patient Mode of arrival: wheelchair Limitations: no limitations - History of Present Illness Initial Comments: Jorge is a 70-year-old gentleman who was recently diagnosed with lung cancer and begin chemotherapy this week. After his third chemotherapy today the patient really wasn't feeling well he's been feeling unwell and weak all week however today family noted that he seemed much less like himself somewhat confused and seemed to have slowed mentation. They brought to the ER for evaluation. Recent fevers chills. Significant mother bedside uncertain of nausea or vomiting or h elp patient's been eating lately. - Related Data Home Medications Medication Instructions Recorded Confirmed Carboxymethylcellulose Sodium 1 drop BOTH EYES DAILY PRN 03/26/21 04/30/21 [Refresh Tears] Famotidine [Pepcid] 20 mg PO BID 03/26/21 04/30/21 Cetirizine HCl [Zyrtec] 10 mg PO BID 04/30/21 04/30/21 Dexamethasone [Decadron] 4 mg PO DAILY 04/30/21 04/30/21 Leg Cramps 1 tab PO DAILY PRN 04/30/21 04/30/21 OLANZapine [ZyPREXA] 2.5 mg PO DIRECTED 04/30/21 04/30/21 Ondansetron [Zofran] 4 mg PO Q4H PRN 04/30/21 04/30/21 Previous Rx's Medication Instructions Recorded amLODIPine [Norvasc] 10 mg PO DAILY #30 tablet 03/30/21 Allergies Allergy/AdvReac Type Severity Reaction Status Date / Time No Known Allergies Allergy Verified 04/30/21 18:36 Review of Systems ROS Statement: Those systems with pertinent positive or pertinent negative responses have been documented in the HPI. ROS Other: All systems not noted in ROS Statement are negative. Past Medical History Past Medical History: Cancer, Hypertension, Osteoarthritis (OA) Additional Past Medical History / Comment(s): HX OF POSITIVE TB SKIN TEST WITH TX (1996) History of Any Multi-Drug Resistant Organisms: None Reported Past Surgical History: Hernia Repair, Orthopedic Surgery Additional Past Surgical History / Comment(s): ANGEL CARPAL TUNNEL , ANGEL KNEE SURGERY, ANGEL CATARACT REM. Past Anesthesia/Blood Transfusion Reactions: No Reported Reaction Past Psychological History: No Psychological Hx Reported Smoking Status: Former smoker - Past Family History Father Family Medical History: Cancer Additional Family Medical History / Comment(s): COLON CANCER Brother(s) Family Medical History: Cancer Additional Family Medical History / Comment(s): BLADDER CANCER General Exam - General Exam Comments Initial Comments: Physical Exam GENERAL: Chronically ill appearing HENT: Normocephalic, Atraumatic. Facial edema EYES: PERRL, EOMI PULMONARY: Unlabored respirations CARDIOVASCULAR: Bradycardic regular ABDOMEN: Soft and nontender with normal bowel sounds. SKIN: Skin is clear with no lesions or rashes and otherwise unremarkable. : Deferred NEUROLOGIC: Patient is alert and oriented x3. Moving all extremities spontaneously MUSCULOSKELETAL: Normal extremities with adequate strength and full range of motion. No lower extremity swelling or edema. No calf tenderness. PSYCHIATRIC: Normal psychiatric evaluation. Limitations: no limitations Course Vital Signs 04/30/21 04/30/21 04/30/21 15:53 21:02 22:31 Temperature 96.6 F L Pulse Rate 86 79 81 Respiratory 20 18 18 Rate Blood Pressure 179/94 144/104 144/87 O2 Sat by Pulse 88 L 96 96 Oximetry Procedures - [place] Protocol (Time Out) Nurse: Giselle Guy Medical Decision Making - Medical Decision Making Patient was seen and evaluated, history is obtained from patient and family member at bedside Labs and imaging were obtained Patient went to CT and upon return had a seizure, patient was given Ativan, shortly after this. His labs resulted with a critical hyponatremia of 113. This was discussed with nephrology trombone slide assembler Dr. Mckinney who recommended 3% sodium chloride at 25 miles per hour with rechecks every 2 hours, fully catheter for strict I's and O's and admission to ICU Patient care was discussed with Dr. Watson who is familiar with the patient and accepts admission to the ICU Patient care discussed with Elodia salmeron [facility] who accepts patient to their service. - Lab Data Result diagrams: 04/30/21 19:33 04/30/21 19:33 Lab Results 04/30/21 04/30/21 04/30/21 Range/Units 19:33 19:33 19:33 WBC 11.1 H (3.8-10.6) k/uL RBC 3.87 L (4.30-5.90) m/uL Hgb 12.1 L (13.0-17.5) gm/dL Hct 34.8 L (39.0-53.0) % MCV 90.0 D (80.0-100.0) fL MCH 31.3 (25.0-35.0) pg MCHC 34.8 (31.0-37.0) g/dL RDW 15.6 H (11.5-15.5) % Plt Count 250 (150-450) k/uL MPV 6.6 Neutrophils % 92 % Lymphocytes % 6 % Monocytes % 1 % Eosinophils % 1 % Basophils % 0 % Neutrophils # 10.2 H (1.3-7.7) k/uL Lymphocytes # 0.7 L (1.0-4.8) k/uL Monocytes # 0.1 (0-1.0) k/uL Eosinophils # 0.1 (0-0.7) k/uL Basophils # 0.0 (0-0.2) k/uL PT 9.5 (9.0-12.0) sec INR 0.9 (<1.2) APTT 24.2 (22.0-30.0) sec Sodium (137-145) mmol/L Potassium (3.5-5.1) mmol/L Chloride (98-107) mmol/L Carbon Dioxide (22-30) mmol/L Anion Gap mmol/L BUN (9-20) mg/dL Creatinine (0.66-1.25) mg/dL Est GFR (CKD-EPI)AfAm (>60 ml/min/1.73 sqM) Est GFR (CKD-EPI)NonAf (>60 ml/min/1.73 sqM) Glucose (74-99) mg/dL POC Glucose (mg/dL) (75-99) mg/dL POC Glu Melter Assistant ID Calcium (8.4-10.2) mg/dL Total Bilirubin (0.2-1.3) mg/dL AST (17-59) U/L ALT (4-49) U/L Alkaline Phosphatase (38-126) U/L Ammonia (<30) umol/L Troponin I (0.000-0.034) ng/mL Total Protein (6.3-8.2) g/dL Albumin (3.5-5.0) g/dL Urine Color Colorless Urine Appearance Clear (Clear) Urine pH 5.5 (5.0-8.0) Ur Specific [place] 1.006 (1.001-1.035) Urine Protein Negative (Negative) Urine Glucose (UA) Negative (Negative) Urine Ketones Negative (Negative) Urine Blood Negative (Negative) Urine Nitrite Negative (Negative) Urine Bilirubin Negative (Negative) Urine Urobilinogen <2.0 (<2.0) mg/dL Ur Leukocyte Esterase Negative (Negative) 04/30/21 04/30/21 04/30/21 Range/Units 19:33 19:33 19:33 WBC (3.8-10.6) k/uL RBC (4.30-5.90) m/uL Hgb (13.0-17.5) gm/dL Hct (39.0-53.0) % MCV (80.0-100.0) fL MCH (25.0-35.0) pg MCHC (31.0-37.0) g/dL RDW (11.5-15.5) % Plt Count (150-450) k/uL MPV Neutrophils % % Lymphocytes % % Monocytes % % Eosinophils % % Basophils % % Neutrophils # (1.3-7.7) k/uL Lymphocytes # (1.0-4.8) k/uL Monocytes # (0-1.0) k/uL Eosinophils # (0-0.7) k/uL Basophils # (0-0.2) k/uL PT (9.0-12.0) sec INR (<1.2) APTT (22.0-30.0) sec Sodium 113 L* (137-145) mmol/L Potassium 4.1 (3.5-5.1) mmol/L Chloride 81 L (98-107) mmol/L Carbon Dioxide 24 (22-30) mmol/L Anion Gap 8 mmol/L BUN 15 (9-20) mg/dL Creatinine 0.33 L (0.66-1.25) mg/dL Est GFR (CKD-EPI)AfAm >90 (>60 ml/min/1.73 sqM) Est GFR (CKD-EPI)NonAf >90 (>60 ml/min/1.73 sqM) Glucose 110 H (74-99) mg/dL POC Glucose (mg/dL) (75-99) mg/dL POC Glu Melter Assistant ID Calcium 8.2 L (8.4-10.2) mg/dL Total Bilirubin 1.1 (0.2-1.3) mg/dL AST 35 (17-59) U/L ALT 30 (4-49) U/L Alkaline Phosphatase 66 (38-126) U/L Ammonia <9 (<30) umol/L Troponin I <0.012 (0.000-0.034) ng/mL Total Protein 6.1 L (6.3-8.2) g/dL Albumin 3.5 (3.5-5.0) g/dL Urine Color Urine Appearance (Clear) Urine pH (5.0-8.0) Ur Specific [place] (1.001-1.035) Urine Protein (Negative) Urine Glucose (UA) (Negative) Urine Ketones (Negative) Urine Blood (Negative) Urine Nitrite (Negative) Urine Bilirubin (Negative) Urine Urobilinogen (<2.0) mg/dL Ur Leukocyte Esterase (Negative) 04/30/21 Range/Units 19:35 WBC (3.8-10.6) k/uL RBC (4.30-5.90) m/uL Hgb (13.0-17.5) gm/dL Hct (39.0-53.0) % MCV (80.0-100.0) fL MCH (25.0-35.0) pg MCHC (31.0-37.0) g/dL RDW (11.5-15.5) % Plt Count (150-450) k/uL MPV Neutrophils % % Lymphocytes % % Monocytes % % Eosinophils % % Basophils % % Neutrophils # (1.3-7.7) k/uL Lymphocytes # (1.0-4.8) k/uL Monocytes # (0-1.0) k/uL Eosinophils # (0-0.7) k/uL Basophils # (0-0.2) k/uL PT (9.0-12.0) sec INR (<1.2) APTT (22.0-30.0) sec Sodium (137-145) mmol/L Potassium (3.5-5.1) mmol/L Chloride (98-107) mmol/L Carbon Dioxide (22-30) mmol/L Anion Gap mmol/L BUN (9-20) mg/dL Creatinine (0.66-1.25) mg/dL Est GFR (CKD-EPI)AfAm (>60 ml/min/1.73 sqM) Est GFR (CKD-EPI)NonAf (>60 ml/min/1.73 sqM) Glucose (74-99) mg/dL POC Glucose (mg/dL) 118 H (75-99) mg/dL POC Glu Melter Assistant ID Giselle Guy Calcium (8.4-10.2) mg/dL Total Bilirubin (0.2-1.3) mg/dL AST (17-59) U/L ALT (4-49) U/L Alkaline Phosphatase (38-126) U/L Ammonia (<30) umol/L Troponin I (0.000-0.034) ng/mL Total Protein (6.3-8.2) g/dL Albumin (3.5-5.0) g/dL Urine Color Urine Appearance (Clear) Urine pH (5.0-8.0) Ur Specific [place] (1.001-1.035) Urine Protein (Negative) Urine Glucose (UA) (Negative) Urine Ketones (Negative) Urine Blood (Negative) Urine Nitrite (Negative) Urine Bilirubin (Negative) Urine Urobilinogen (<2.0) mg/dL Ur Leukocyte Esterase (Negative) Critical Care Time Critical Care Time: Yes Total Critical Care Time: 30 Critical Care Time: Critical Care Time Critical care time was exclusive of separately billable procedures and treating other patients and teaching time. Critical care was necessary to treat or prevent imminent or life-threatening deterioration. Given the critical condition in which the patient arrived, the patient was immediately assessed by myself and the nurse, and cardiac monitoring initiated due to the potential for rapid decompensation of the patient's clinical condition. During the course of the patients stay, I spent a considerable amount of time at the bedside performing serial re-evaluations of the patient's hemodynamic and clinical status because of the recognized potential threat to life or limb in this condition. I then had a chance to review not only all of the available current laboratory and radiographic studies obtained today, but I also reviewed old records available to me at the time. Additionally, any ancillary information available including mover records were reviewed. Sequential vital signs were obtained. Disposition Clinical Impression: Hyponatremia, Seizure, SVC syndrome, Lung cancer Disposition: ADMITTED IP TO THIS HOSP Condition: Serious Is patient prescribed a controlled substance at d/c from ED?: No Referrals: None,Stated [Primary Care Provider] - 1-2 days
[2021-05-01] MEDS ORDERED: NALOXONE 0.4 MG/ML 1 ML VIAL IV PRN
[2021-05-01] MEDS ORDERED: LORazepam 2 MG/ML INJ IV PRN (00:40)
[2021-05-01 01:03] LABS: Glucose,Whole Blood 73 mg/dL (75-99)
[2021-05-01 08:35] LABS: Basophils % (A) 0 %; Eosinophils % (A) 1 %; Lymphocytes # (A) 1.2 k/uL (1.0-4.8); Lymphocytes % (A) 14 %; MCH 31.6 pg (25.0-35.0); MCHC 34.4 g/dL (31.0-37.0); MCV 91.9 fL (80.0-100.0); Mean Platelet Volume 6.5; Monocytes # (A) 0.1 k/uL (0-1.0); Monocytes % (A) 1 %; Neutrophils % (A) 84 %; Platelet Count 219 k/uL (150-450); RBC 3.81 m/uL (4.30-5.90); RDW 14.8 % (11.5-15.5); WBC 8.4 k/uL (3.8-10.6)
[2021-05-01 08:46] LABS: African American GFR (CKD) >90 (>60 ml/min/1.73 sqM); Anion Gap 5 mmol/L; Blood Urea Nitrogen 10 mg/dL (9-20); Calcium 8.1 mg/dL (8.4-10.2); Carbon Dioxide 29 mmol/L (22-30); Chloride 86 mmol/L (98-107); Glucose 93 mg/dL (74-99); Non-African American GFR(CKD) >90 (>60 ml/min/1.73 sqM); Potassium 3.5 mmol/L (3.5-5.1); Sodium 120 mmol/L (137-145)
--- NOTE | 2021-05-01 08:57 | P.NPCON ---
History of Present Illness - Reason for Consult hyponatremia - History of Present Illness Reason for consultation: Hyponatremia History of present illness: Patient is a 70-year-old male seen in consultation for hyponatremia. Patient's sodium level on admission on 04/30/2021 at 7:33 PM was 113. Patient had seizure in the ER and was witnessed by the ER physician. Patient was subsequent he started on 3% saline. Sodium level this morning as of this morning was 120. Nonoliguric. GFR at baseline. Patient has history of lung cancer and was started on chemotherapy earlier this week. Patient states he has undergone 3 treatments of chemotherapy so far. He's been drinking quite a bit of fluid. Oral intake has been poor. Denies vomiting or diarrhea. No chest pain or shortness of breath. Denies use of nonsteroidals. Blood pressure controlled. Currently on 3 L is cannula. Vital signs are stable. General: The patient appeared well nourished and normally developed. HEENT: Head exam is unremarkable. LUNGS: Breath sounds decreased. HEART: Rate and Rhythm are regular. ABDOMEN: Soft, no distention. EXTREMITITES: No edema. Past Medical History Past Medical History: Cancer, Hypertension, Osteoarthritis (OA) Additional Past Medical History / Comment(s): HX OF POSITIVE TB SKIN TEST WITH TX (1996) History of Any Multi-Drug Resistant Organisms: None Reported Past Surgical History: Hernia Repair, Orthopedic Surgery Additional Past Surgical History / Comment(s): ANGEL CARPAL TUNNEL , ANGEL KNEE SURGERY, ANGEL CATARACT REM. Past Anesthesia/Blood Transfusion Reactions: No Reported Reaction Past Psychological History: No Psychological Hx Reported Additional Psychological History / Comment(s): Pt resides with his spouse. He is independent. Smoking Status: Former smoker Past Alcohol Use History: Daily Additional Past Alcohol Use History / Comment(s): SMOKES 2 CIGARS DAILY. STARTED SMOKING AGE 14, QUIT CIGARETTES 1984. DRINKS 3-4 BEERS DAILY. Past Drug Use History: None Reported - Past Family History Father Family Medical History: Cancer Additional Family Medical History / Comment(s): COLON CANCER Brother(s) Family Medical History: Cancer Additional Family Medical History / Comment(s): BLADDER CANCER Medications and Allergies Home Medications Medication Instructions Recorded Confirmed Type Carboxymethylcellulose Sodium 1 drop BOTH EYES DAILY PRN 03/26/21 04/30/21 History [Refresh Tears] Famotidine [Pepcid] 20 mg PO BID 03/26/21 04/30/21 History amLODIPine [Norvasc] 10 mg PO DAILY #30 tablet 03/30/21 04/30/21 Rx Cetirizine HCl [Zyrtec] 10 mg PO BID 04/30/21 04/30/21 History Dexamethasone [Decadron] 4 mg PO DAILY 04/30/21 04/30/21 History Leg Cramps 1 tab PO DAILY PRN 04/30/21 04/30/21 History OLANZapine [ZyPREXA] 2.5 mg PO DIRECTED 04/30/21 04/30/21 History Ondansetron [Zofran] 4 mg PO Q4H PRN 04/30/21 04/30/21 History Allergies Allergy/AdvReac Type Severity Reaction Status Date / Time No Known Allergies Allergy Verified 04/30/21 18:36 Physical Exam Vitals: Vital Signs Temp Pulse Pulse Resp BP BP Pulse Ox 05/01/21 08:00 98.5 F 80 13 133/72 05/01/21 07:00 86 10 L 133/72 99 05/01/21 06:00 80 14 131/81 98 05/01/21 05:00 98.5 F 77 12 115/101 100 05/01/21 04:00 98.5 F 75 12 122/76 122/76 98 05/01/21 03:00 79 13 135/94 96 05/01/21 02:28 98.4 F 79 12 133/87 97 05/01/21 00:24 98.4 F 78 18 146/90 100 05/01/21 00:11 129/81 04/30/21 22:31 81 18 144/87 96 04/30/21 21:02 79 18 144/104 96 04/30/21 15:53 96.6 F L 86 20 179/94 88 L Intake and Output 04/30/21 05/01/21 05/01/21 22:59 06:59 14:59 Intake Total 25 Output Total 900 2425 275 Balance -900 -2400 -275 Intake: Intake, IV Titration 25 Amount Sodium Chloride 3%( 25 Hypertonic) 500 ml @ 25 mls/hr IV .Q20H [facility] Rx#: [id number] Output: Urine 900 2425 275 Other: Voiding Method Indwelling Catheter Weight 56.699 kg 59.7 kg Results - Lab Results Most recent lab results Calcium 8.1 mg/dL (8.4-10.2) L 05/01/21 08:05 05/01/21 08:05 05/01/21 08:05 Assessment and Plan Plan: Assessment: 1. Hypovolemic hyponatremia. Also component of poor solute intake. Sodium l evel 113 on admission yesterday evening and 120 this morning. 2. Seizure secondary to hyponatremia. 3. Lung cancer. Started on chemotherapy earlier this week. 4. Benign hypertension. Controlled. Plan: Start D5W at 50 mL an hour to prevent further rise in sodium. Check serum and urine osmolality and urine sodium level. Check TSH. Repeat sodium level at noon. Continue to monitor. Thank you for the consultation. I will continue to follow the patient with you during his hospital stay.
[2021-05-01] MEDS ORDERED: DEXTROSE 5% IN WATER 1,000 ML IV SCH (09:00)
[2021-05-01] MEDS ORDERED: ARTIFICIAL TEARS-HYPROMELLOSE DROPS 15 ML BTL BOTH EYES PRN (11:24)
[2021-05-01] MEDS ORDERED: ONDANSETRON 4 MG TAB PO PRN (11:24)
[2021-05-01] MEDS ORDERED: OLANZapine 2.5 MG TAB PO SCH (11:30)
--- NOTE | 2021-05-01 11:33 | P.HPIM ---
History of Present Illness Patient is a pleasant 68-year-old male came in with seizures Mariangel's weakness and tiredness found to be severely hyponatremic with a serum sodium of 113. Patient received 3% saline because of the seizure after which his sodium went up to 120 because of significant increase of serum sodium patient was later started on D5 water. Patient's serum sodium will be rechecked again will be started on normal saline most probably later on. Patient denied diarrhea nausea vomiting. Patient's hyponatremia is considered secondary to hypovolemia as well as a possibility of SIADH. 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 Patient is also on Decadron 4 mg for edema from the tumor. Patient received 3 doses of chemotherapy. Patient lung cancer is still active at this time. Patient is off oxygen at this time. Patient used to smoke in the past quit smoking about 4 months ago. REVIEW OF SYSTEMS: CONSTITUTIONAL: No fever, no malaise, no fatigue. HEENT: No recent visual problems or hearing problems. Denied any sore throat. CARDIOVASCULAR: No chest pain, orthopnea, PND, no palpitations, no syncope. PULMONARY: No shortness of breath, no cough, no hemoptysis. GASTROINTESTINAL: No diarrhea, no nausea, no vomiting, no abdominal pain. NEUROLOGICAL: No headaches, no weakness, no numbness. HEMATOLOGICAL: Denies any bleeding or petechiae. GENITOURINARY: Denies any burning micturition, frequency, or urgency. MUSCULOSKELETAL/RHEUMATOLOGICAL: Denies any joint pain, swelling, or any muscle pain. ENDOCRINE: Denies any polyuria or polydipsia. The rest of the 14-point review of systems is negative. PHYSICAL EXAMINATION: GENERAL: The patient is alert and oriented x3, not in any acute distress. Well developed, well nourished. HEENT: Pupils are round and equally reacting to light. EOMI. No scleral icterus. No conjunctival pallor. Normocephalic, atraumatic. No pharyngeal erythema. No thyromegaly. CARDIOVASCULAR: S1 and S2 present. No murmurs, rubs, or gallops. PULMONARY: Chest is clear to auscultation, no wheezing or crackles. ABDOMEN: Soft, nontender, nondistended, normoactive bowel sounds. No palpable organomegaly. MUSCULOSKELETAL: No joint swelling or deformity. EXTREMITIES: No cyanosis, clubbing, or pedal edema. NEUROLOGICAL: Gross neurological examination did not reveal any focal deficits. SKIN: No rashes. Assessment and plan Plan the severe hyponatremia leading to seizures: Treatment as mentioned above multifactorial hyponatremia secondary to hypovolemia, decreased solute intake, possibility of SIADH -Seizures secondary to hyponatremia patient will need close clinical monitoring because of his patient is in ICU as needed Ativan sodium correction as mentioned above need to correct sodium really slow to avoid central pontine myelinolysis 7 benign essential hypertension -Lung cancer with therapy continue Decadron but will cut down the dose to 3 mg daily next DVT prophylaxis: Lovenox -GI prophylaxis Pepcid Past Medical History Past Medical History: Cancer, Hypertension, Osteoarthritis (OA) Additional Past Medical History / Comment(s): HX OF POSITIVE TB SKIN TEST WITH TX (1996) History of Any Multi-Drug Resistant Organisms: None Reported Past Surgical History: Hernia Repair, Orthopedic Surgery Additional Past Surgical History / Comment(s): ANGEL CARPAL TUNNEL , ANGEL KNEE SURGERY, ANGEL CATARACT REM. Past Anesthesia/Blood Transfusion Reactions: No Reported Reaction Past Psychological History: No Psychological Hx Reported Additional Psychological History / Comment(s): Pt resides with his spouse. He is independent. Smoking Status: Former smoker Past Alcohol Use History: Daily Additional Past Alcohol Use History / Comment(s): SMOKES 2 CIGARS DAILY. STARTED SMOKING AGE 14, QUIT CIGARETTES 1984. DRINKS 3-4 BEERS DAILY. Past Drug Use History: None Reported - Past Family History Father Family Medical History: Cancer Additional Family Medical History / Comment(s): COLON CANCER Brother(s) Family Medical History: Cancer Additional Family Medical History / Comment(s): BLADDER CANCER Medications and Allergies Home Medications Medication Instructions Recorded Confirmed Type Carboxymethylcellulose Sodium 1 drop BOTH EYES DAILY PRN 03/26/21 04/30/21 History [Refresh Tears] Famotidine [Pepcid] 20 mg PO BID 03/26/21 04/30/21 History amLODIPine [Norvasc] 10 mg PO DAILY #30 tablet 03/30/21 04/30/21 Rx Cetirizine HCl [Zyrtec] 10 mg PO BID 04/30/21 04/30/21 History Dexamethasone [Decadron] 4 mg PO DAILY 04/30/21 04/30/21 History Leg Cramps 1 tab PO DAILY PRN 04/30/21 04/30/21 History OLANZapine [ZyPREXA] 2.5 mg PO DIRECTED 04/30/21 04/30/21 History Ondansetron [Zofran] 4 mg PO Q4H PRN 04/30/21 04/30/21 History Allergies Allergy/AdvReac Type Severity Reaction Status Date / Time No Known Allergies Allergy Verified 04/30/21 18:36 Physical Exam Vitals: Vital Signs Temp Pulse Pulse Resp BP BP Pulse Ox 05/01/21 11:00 83 21 110/54 93 L 05/01/21 10:00 90 13 123/81 96 05/01/21 09:00 92 13 123/71 90 L 05/01/21 08:00 98.5 F 80 13 133/72 05/01/21 07:00 86 10 L 133/72 99 05/01/21 06:00 80 14 131/81 98 05/01/21 05:00 98.5 F 77 12 115/101 100 05/01/21 04:00 98.5 F 75 12 122/76 122/76 98 05/01/21 03:00 79 13 135/94 96 05/01/21 02:28 98.4 F 79 12 133/87 97 05/01/21 00:24 98.4 F 78 18 146/90 100 05/01/21 00:11 129/81 04/30/21 22:31 81 18 144/87 96 04/30/21 21:02 79 18 144/104 96 04/30/21 15:53 96.6 F L 86 20 179/94 88 L Intake and Output 04/30/21 05/01/21 05/01/21 22:59 06:59 14:59 Intake Total 25 450 Output Total 900 2425 600 Balance -900 -2400 -150 Intake: Intake, IV Titration 25 150 Amount Dextrose 5% in Water 1, 150 000 ml @ 50 mls/hr IV . Q20H [facility] Rx#:[id number] Sodium Chloride 3%( 25 Hypertonic) 500 ml @ 25 mls/hr IV .Q20H [facility] Rx#: [id number] Oral 300 Output: Urine 900 2425 600 Other: Voiding Method Indwelling Catheter Indwelling Catheter Weight 56.699 kg 59.7 kg Results CBC & Chem 7: 05/01/21 08:05 05/01/21 08:05 Labs: Abnormal Lab Results - Last 24 Hours (Table) 04/30/21 04/30/21 04/30/21 Range/Units 19:33 19:33 19:35 WBC 11.1 H (3.8-10.6) k/uL RBC 3.87 L (4.30-5.90) m/uL Hgb 12.1 L (13.0-17.5) gm/dL Hct 34.8 L (39.0-53.0) % RDW 15.6 H (11.5-15.5) % Neutrophils # 10.2 H (1.3-7.7) k/uL Lymphocytes # 0.7 L (1.0-4.8) k/uL Sodium 113 L* (137-145) mmol/L Chloride 81 L (98-107) mmol/L Creatinine 0.33 L (0.66-1.25) mg/dL Glucose 110 H (74-99) mg/dL POC Glucose (mg/dL) 118 H (75-99) mg/dL Osmolality (280-301) mosm/kg Calcium 8.2 L (8.4-10.2) mg/dL Total Protein 6.1 L (6.3-8.2) g/dL 05/01/21 05/01/21 05/01/21 Range/Units 01:01 01:03 03:37 WBC (3.8-10.6) k/uL RBC (4.30-5.90) m/uL Hgb (13.0-17.5) gm/dL Hct (39.0-53.0) % RDW (11.5-15.5) % Neutrophils # (1.3-7.7) k/uL Lymphocytes # (1.0-4.8) k/uL Sodium 118 L* 119 L* (137-145) mmol/L Chloride (98-107) mmol/L Creatinine (0.66-1.25) mg/dL Glucose (74-99) mg/dL POC Glucose (mg/dL) 73 L (75-99) mg/dL Osmolality (280-301) mosm/kg Calcium (8.4-10.2) mg/dL Total Protein (6.3-8.2) g/dL 05/01/21 05/01/21 05/01/21 Range/Units 05:25 08:05 08:05 WBC (3.8-10.6) k/uL RBC 3.81 L (4.30-5.90) m/uL Hgb 12.0 L (13.0-17.5) gm/dL Hct 35.0 L (39.0-53.0) % RDW (11.5-15.5) % Neutrophils # (1.3-7.7) k/uL Lymphocytes # (1.0-4.8) k/uL Sodium 119 L* 120 L (137-145) mmol/L Chloride 86 L (98-107) mmol/L Creatinine 0.50 L (0.66-1.25) mg/dL Glucose (74-99) mg/dL POC Glucose (mg/dL) (75-99) mg/dL Osmolality 255 L (280-301) mosm/kg Calcium 8.1 L (8.4-10.2) mg/dL Total Protein (6.3-8.2) g/dL
--- NOTE | 2021-05-01 13:26 | P.CNPUL ---
History of Present Illness Consult date: 05/01/21 Chief complaint: Altered mental status History of present illness: This is a 68-year-old male patient is known to me. 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 Performed a bronchoscopy on him around 2 weeks ago including endobronchial ultrasound and diagnosis was established. At that time, the patient was having issues with hyponatremia and his sodium level was 126. He was asked to take salt tablets. Subsequently, the patient came in few days after receiving his first session of systemic chemotherapy with generalized weakness. He also witnessed a bout of seizure in the emergency department. His sodium level was 113. The patient was started on hypertonic saline solution at 3% and his sodium came up to 120 this morning. Based on that, he was started on D5 water by nephrology. The patient is awake and alert. The patient is doing well. No respiratory difficulties no focal neurological deficit. No ongoing seizure activity. No focal neurological deficit. No headaches. No change in mental status at this point in time and he was awake and alert at time of my evaluation. The most recent sodium level is 119. The white cell count is at 8.4 with a hemoglobin of 12 and a platelet count of 219. Urine osmolality is 408. The CAT scan of the brain was completed and the patient has no evidence of any WHEEL BLOCKER metastases. Chest x-ray shows a right hilar mass. The mass is unchanged and the patient is known to have underlying small cell lung cancer. Review of Systems CONSTITUTIONAL: No fever, no malaise, no fatigue. There is generalized weakness and weight loss. There is also diminished appetite. HEENT: No recent visual problems or hearing problems. Denied any sore throat. CARDIOVASCULAR: No chest pain, orthopnea, PND, no palpitations, no syncope. PULMONARY: No shortness of breath, no cough, no hemoptysis. The patient had signs of SVC syndrome few weeks back and currently has no facial or arm swelling the patient is able to lay down flat in bed without any major difficulties. GASTROINTESTINAL: No diarrhea, no nausea, no vomiting, no abdominal pain. NEUROLOGICAL: No headaches, no weakness, no numbness. The patient presented with altered mental status and the patient also has developed a seizure episodes. HEMATOLOGICAL: Denies any bleeding or petechiae. GENITOURINARY: Denies any burning micturition, frequency, or urgency. MUSCULOSKELETAL/RHEUMATOLOGICAL: Denies any joint pain, swelling, or any muscle pain. ENDOCRINE: Denies any polyuria or polydipsia. Past Medical History Past Medical History: Cancer (Small cell lung cancer, early SVC syndrome), Hypertension, Osteoarthritis (OA) Additional Past Medical History / Comment(s): HX OF POSITIVE TB SKIN TEST WITH TX (1996) History of Any Multi-Drug Resistant Organisms: None Reported Past Surgical History: Hernia Repair, Orthopedic Surgery Additional Past Surgical History / Comment(s): ANGEL CARPAL TUNNEL , ANGEL KNEE SURGERY, ANGEL CATARACT REM. Past Anesthesia/Blood Transfusion Reactions: No Reported Reaction Past Psychological History: No Psychological Hx Reported Additional Psychological History / Comment(s): Pt resides with his spouse. He is independent. Smoking Status: Former smoker Past Alcohol Use History: Daily Additional Past Alcohol Use History / Comment(s): SMOKES 2 CIGARS DAILY. STARTED SMOKING AGE 14, QUIT CIGARETTES 1984. DRINKS 3-4 BEERS DAILY. Past Drug Use History: None Reported - Past Family History Father Family Medical History: Cancer Additional Family Medical History / Comment(s): COLON CANCER Brother(s) Family Medical History: Cancer Additional Family Medical History / Comment(s): BLADDER CANCER Medications and Allergies Home Medications Medication Instructions Recorded Confirmed Type Carboxymethylcellulose Sodium 1 drop BOTH EYES DAILY PRN 03/26/21 04/30/21 History [Refresh Tears] Famotidine [Pepcid] 20 mg PO BID 03/26/21 04/30/21 History amLODIPine [Norvasc] 10 mg PO DAILY #30 tablet 03/30/21 04/30/21 Rx Cetirizine HCl [Zyrtec] 10 mg PO BID 04/30/21 04/30/21 History Dexamethasone [Decadron] 4 mg PO DAILY 04/30/21 04/30/21 History Leg Cramps 1 tab PO DAILY PRN 04/30/21 04/30/21 History OLANZapine [ZyPREXA] 2.5 mg PO DIRECTED 04/30/21 04/30/21 History Ondansetron [Zofran] 4 mg PO Q4H PRN 04/30/21 04/30/21 History Allergies Allergy/AdvReac Type Severity Reaction Status Date / Time No Known Allergies Allergy Verified 04/30/21 18:36 Physical Exam Vitals: Vital Signs Temp Pulse Pulse Resp BP BP Pulse Ox 05/01/21 12:00 98 F 88 13 110/61 96 05/01/21 11:00 83 21 110/54 93 L 05/01/21 10:00 90 13 123/81 96 05/01/21 09:00 92 13 123/71 90 L 05/01/21 08:00 98.5 F 80 13 133/72 05/01/21 07:00 86 10 L 133/72 99 05/01/21 06:00 80 14 131/81 98 05/01/21 05:00 98.5 F 77 12 115/101 100 05/01/21 04:00 98.5 F 75 12 122/76 122/76 98 05/01/21 03:00 79 13 135/94 96 05/01/21 02:28 98.4 F 79 12 133/87 97 05/01/21 00:24 98.4 F 78 18 146/90 100 05/01/21 00:11 129/81 04/30/21 22:31 81 18 144/87 96 04/30/21 21:02 79 18 144/104 96 04/30/21 15:53 96.6 F L 86 20 179/94 88 L Intake and Output 04/30/21 05/01/21 05/01/21 22:59 06:59 14:59 Intake Total 25 500 Output Total 900 2425 700 Balance -900 -2400 -200 Intake: Intake, IV Titration 25 200 Amount Dextrose 5% in Water 1, 200 000 ml @ 50 mls/hr IV . Q20H [facility] Rx#:[id number] Sodium Chloride 3%( 25 Hypertonic) 500 ml @ 25 mls/hr IV .Q20H [facility] Rx#: [id number] Oral 300 Output: Urine 900 2425 700 Other: Voiding Method Indwelling Catheter Indwelling Catheter Weight 56.699 kg 59.7 kg GENERAL: The patient is alert and oriented x3, not in any acute distress. Well developed, well nourished. HEENT: Pupils are round and equally reacting to light. EOMI. No scleral icterus. No conjunctival pallor. Normocephalic, atraumatic. No pharyngeal erythema. No thyromegaly. CARDIOVASCULAR: S1 and S2 present. No murmurs, rubs, or gallops. PULMONARY: Chest is clear to auscultation, no wheezing or crackles. ABDOMEN: Soft, nontender, nondistended, normoactive bowel sounds. No palpable organomegaly. MUSCULOSKELETAL: No joint swelling or deformity. EXTREMITIES: No cyanosis, clubbing, or pedal edema. NEUROLOGICAL: Gross neurological examination did not reveal any focal deficits. Examination of the skin revealed no evidence of significant rashes, suspicious appearing nevi or other concerning lesions. Results - Laboratory Findings CBC and BMP: 05/01/21 08:05 05/01/21 11:52 PT/INR, D-dimer PT 9.5 sec (9.0-12.0) 04/30/21 19:33 INR 0.9 (<1.2) 04/30/21 19:33 Abnormal lab findings: Abnormal Labs 04/30/21 04/30/21 04/30/21 19:33 19:33 19:35 WBC 11.1 H RBC 3.87 L Hgb 12.1 L Hct 34.8 L RDW 15.6 H Neutrophils # 10.2 H Lymphocytes # 0.7 L Sodium 113 L* Chloride 81 L Creatinine 0.33 L Glucose 110 H POC Glucose (mg/dL) 118 H Osmolality Calcium 8.2 L Total Protein 6.1 L 05/01/21 05/01/21 05/01/21 01:01 01:03 03:37 WBC RBC Hgb Hct RDW Neutrophils # Lymphocytes # Sodium 118 L* 119 L* Chloride Creatinine Glucose POC Glucose (mg/dL) 73 L Osmolality Calcium Total Protein 05/01/21 05/01/21 05/01/21 05:25 08:05 08:05 WBC RBC 3.81 L Hgb 12.0 L Hct 35.0 L RDW Neutrophils # Lymphocytes # Sodium 119 L* 120 L Chloride 86 L Creatinine 0.50 L Glucose POC Glucose (mg/dL) Osmolality 255 L Calcium 8.1 L Total Protein 05/01/21 11:52 WBC RBC Hgb Hct RDW Neutrophils # Lymphocytes # Sodium 119 L* Chloride Creatinine Glucose POC Glucose (mg/dL) Osmolality Calcium Total Protein - Diagnostic Findings Chest x-ray: image reviewed Assessment and Plan Plan: 1 tumor hyponatremia/SIADH as the patient is known to have underlying small cell lung cancer. Sodium level was as low as 113. The patient presented with generalized weakness, altered mentation and seizures. She was with hypertonic saline at 3% and the most recent sodium level is at 119 2 small cell lung cancer with signs of early SVC syndrome, currently inactive in stable and the patient is currently receiving systemic chemotherapy, first session was administered last week 3 hypertension 4 osteoarthritis 5 history of latent TB, 1996 Plan Fluid restriction Monitor sodium level Nephrology is involved in managing the hyponatremia. After rapid correction to a sodium of 120, the patient was started on D5 water at 50 mL an hour Always status is stable Neuro status is stable Wean off Decadron We'll continue to follow. Prognosis poor baseline above-mentioned comorbidities. We'll put the patient heparin subcu for DVT prophylaxis.
[2021-05-01] MEDS ORDERED: POTASSIUM CHLORIDE ER 20 MEQ TAB.ER PO STA (13:45)
[2021-05-01] MEDS: HEPARIN SODIUM,PORCINE/PF 5,000 UNIT/0.5 ML SYRINGE SQ SCH (14:33)
[2021-05-01] MEDS: FAMOTIDINE 20 MG TAB PO SCH (21:39)
[2021-05-02] MEDS: HEPARIN SODIUM,PORCINE/PF 5,000 UNIT/0.5 ML SYRINGE SQ SCH ×4 (00:53→23:18)
[2021-05-02 07:55] LABS: Basophils % (A) 0 %; Eosinophils % (A) 1 %; HCT 34.5 % (39.0-53.0); HGB 12.2 gm/dL (13.0-17.5); Lymphocytes % (A) 13 %; MCHC 35.2 g/dL (31.0-37.0); MCV 90.8 fL (80.0-100.0); Mean Platelet Volume 6.7; Monocytes # (A) 0.1 k/uL (0-1.0); Monocytes % (A) 1 %; Neutrophils # (A) 6.7 k/uL (1.3-7.7); Neutrophils % (A) 85 %; Platelet Count 220 k/uL (150-450); RDW 14.8 % (11.5-15.5); WBC 7.9 k/uL (3.8-10.6)
[2021-05-02 08:17] LABS: African American GFR (CKD) >90 (>60 ml/min/1.73 sqM); Anion Gap 3 mmol/L; Blood Urea Nitrogen 14 mg/dL (9-20); Calcium 7.7 mg/dL (8.4-10.2); Carbon Dioxide 30 mmol/L (22-30); Chloride 86 mmol/L (98-107); Glucose 101 mg/dL (74-99); Non-African American GFR(CKD) >90 (>60 ml/min/1.73 sqM); Potassium 3.8 mmol/L (3.5-5.1)
[2021-05-02 08:20] LABS: Sodium 119 mmol/L (137-145)
[2021-05-02] MEDS: FAMOTIDINE 20 MG TAB PO SCH ×2 (08:22→20:40)
--- NOTE | 2021-05-02 08:42 | P.PN ---
Subjective Principal diagnosis: Patient is seen in follow-up for hyponatremia. Sodium level 119 this morning. Nonoliguric. Oral intake better. No vomiting or diarrhea. Vital signs are stable. General: Sitting up in bed. Awake and alert. HEENT: Head exam is unremarkable. LUNGS: Breath sounds decreased. HEART: Rate and Rhythm are regular. ABDOMEN: Soft, no distention. EXTREMITITES: No edema. Objective - Vital Signs Vital signs: Vital Signs Temp 98.2 F 05/02/21 08:00 Pulse 91 05/02/21 07:00 Resp 19 05/02/21 08:00 BP 146/64 05/02/21 08:00 Pulse Ox 93 L 05/02/21 08:00 Intake & Output 05/01/21 05/02/21 05/02/21 18:59 06:59 18:59 Intake Total 1350 480 330 Output Total 1655 840 110 Balance -305 -360 220 Weight 57.5 kg Intake: Intake, IV Titration 450 Amount Dextrose 5% in Water 1, 450 000 ml @ 50 mls/hr IV . Q20H [facility] Rx#:[id number] Oral 900 480 330 Output: Urine 1655 840 110 Other: Voiding Method Indwelling Catheter Indwelling Catheter Indwelling Catheter # Bowel Movements 1 - Labs CBC & Chem 7: 05/02/21 07:26 05/02/21 07:26 Labs: Abnormal Lab Results - Last 24 Hours (Table) 05/01/21 05/01/21 05/01/21 Range/Units 08:05 11:52 15:58 RBC (4.30-5.90) m/uL Hgb (13.0-17.5) gm/dL Hct (39.0-53.0) % Sodium 120 L 119 L* 117 L* (137-145) mmol/L Chloride 86 L (98-107) mmol/L Creatinine 0.50 L (0.66-1.25) mg/dL Glucose (74-99) mg/dL Osmolality 255 L (280-301) mosm/kg Calcium 8.1 L (8.4-10.2) mg/dL 05/01/21 05/02/21 05/02/21 Range/Units 20:04 00:51 07:26 RBC 3.80 L (4.30-5.90) m/uL Hgb 12.2 L (13.0-17.5) gm/dL Hct 34.5 L (39.0-53.0) % Sodium 119 L* 120 L (137-145) mmol/L Chloride (98-107) mmol/L Creatinine (0.66-1.25) mg/dL Glucose (74-99) mg/dL Osmolality (280-301) mosm/kg Calcium (8.4-10.2) mg/dL 05/02/21 Range/Units 07:26 RBC (4.30-5.90) m/uL Hgb (13.0-17.5) gm/dL Hct (39.0-53.0) % Sodium 119 L* (137-145) mmol/L Chloride 86 L (98-107) mmol/L Creatinine 0.42 L (0.66-1.25) mg/dL Glucose 101 H (74-99) mg/dL Osmolality (280-301) mosm/kg Calcium 7.7 L (8.4-10.2) mg/dL Assessment and Plan Plan: Assessment: 1. Hypovolemic hyponatremia. Also component of poor solute intake. Sodium level 113 on admission - 119 this morning. Urine sodium 131 and urine osmolality 408. However these were drawn after patient was receiving 3% saline. TSH normal. 2. Seizure secondary to hyponatremia. 3. Lung cancer. Started on chemotherapy last week. 4. Benign hypertension. Controlled. Plan: Resume 3%. Recheck sodium level at 11 AM. Encourage oral intake. Continue to monitor.
[2021-05-02] MEDS ORDERED: SODIUM CHLORIDE 3%(HYPERTONIC) 500 ML IV SCH (08:45)
[2021-05-02] MEDS ORDERED: dexAMETHasone 4 MG TAB PO SCH (09:00)
[2021-05-02] MEDS: dexAMETHasone 2 MG TAB PO SCH (10:00)
--- NOTE | 2021-05-02 11:17 | P.PN ---
Subjective Patient is a pleasant 68-year-old male came in with seizures Mariangel's weakness and tiredness found to be severely hyponatremic with a serum sodium of 113. Patient received 3% saline because of the seizure after which his sodium went up to 120 because of significant increase of serum sodium patient was later started on D5 water. Patient's serum sodium will be rechecked again will be started on normal saline most probably later on. Patient denied diarrhea nausea vomiting. Patient's hyponatremia is considered secondary to hypovolemia as well as a possibility of SIADH. 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 Patient is also on Decadron 4 mg for edema from the tumor. Patient received 3 doses of chemotherapy. Patient lung cancer is still active at this time. Patient is off oxygen at this time. Patient used to smoke in the past quit smoking about 4 months ago. 05/02/2021 Patient is clinically doing well no more seizures. Patient is a presently on 3% saline present sodium is 119. No significant improvement compared to yesterday. Constitutional: Denied any fatigue denied any fever. Cardio vascular: denied any chest pain, palpitations Gastrointestinal denied any nausea vomiting Pulmonary: Denied any shortness of breath cough Neurologic denied any new focal deficits All inpatient medications were reviewed and appropriate changes in these medications as dictated in the interval history and assessment and plan. PHYSICAL EXAMINATION: GENERAL: The patient is alert and oriented x3, not in any acute distress. Well developed, well nourished. HEENT: Pupils are round and equally reacting to light. EOMI. No scleral icterus. No conjunctival pallor. Normocephalic, atraumatic. No pharyngeal erythema. No thyromegaly. CARDIOVASCULAR: S1 and S2 present. No murmurs, rubs, or gallops. PULMONARY: Chest is clear to auscultation, no wheezing or crackles. ABDOMEN: Soft, nontender, nondistended, normoactive bowel sounds. No palpable organomegaly. MUSCULOSKELETAL: No joint swelling or deformity. EXTREMITIES: No cyanosis, clubbing, or pedal edema. NEUROLOGICAL: Gross neurological examination did not reveal any focal deficits. SKIN: No rashes. Assessment and plan Plan the severe hyponatremia leading to seizures: Is presently on 3% saline multifactorial hyponatremia secondary to hypovolemia, decreased solute intake, possibility of SIADH -Seizures secondary to hyponatremia patient will need close clinical monitoring because of his patient is in ICU as needed Ativan 7 benign essential hypertension -Lung cancer with therapy continue Decadron but will cut down the dose to 3 mg daily next DVT prophylaxis: Lovenox -GI prophylaxis Pepcid Objective - Vital Signs Vital signs: Vital Signs Temp 98.2 F 05/02/21 08:00 Pulse 91 05/02/21 10:00 Resp 12 05/02/21 10:00 BP 126/67 05/02/21 10:00 Pulse Ox 93 L 05/02/21 10:00 Intake & Output 05/01/21 05/02/21 05/02/21 18:59 06:59 18:59 Intake Total 1350 480 330 Output Total 1655 840 260 Balance -305 -360 70 Weight 57.5 kg Intake: Intake, IV Titration 450 Amount Dextrose 5% in Water 1, 450 000 ml @ 50 mls/hr IV . Q20H [facility] Rx#:[id number] Oral 900 480 330 Output: Urine 1655 840 260 Other: Voiding Method Indwelling Catheter Indwelling Catheter Indwelling Catheter # Bowel Movements 1 - Labs CBC & Chem 7: 05/02/21 07:26 05/02/21 07:26 Labs: Abnormal Lab Results - Last 24 Hours (Table) 05/01/21 05/01/21 05/01/21 Range/Units 11:52 15:58 20:04 RBC (4.30-5.90) m/uL Hgb (13.0-17.5) gm/dL Hct (39.0-53.0) % Sodium 119 L* 117 L* 119 L* (137-145) mmol/L Chloride (98-107) mmol/L Creatinine (0.66-1.25) mg/dL Glucose (74-99) mg/dL Calcium (8.4-10.2) mg/dL 05/02/21 05/02/21 05/02/21 Range/Units 00:51 07:26 07:26 RBC 3.80 L (4.30-5.90) m/uL Hgb 12.2 L (13.0-17.5) gm/dL Hct 34.5 L (39.0-53.0) % Sodium 120 L 119 L* (137-145) mmol/L Chloride 86 L (98-107) mmol/L Creatinine 0.42 L (0.66-1.25) mg/dL Glucose 101 H (74-99) mg/dL Calcium 7.7 L (8.4-10.2) mg/dL
--- NOTE | 2021-05-02 11:45 | P.CONS ---
History of Present Illness - Reason for Consult Consult date: 05/02/21 SCLC on chemotherapy Requesting physician: Mike Collins - Chief Complaint Confusion - History of Present Illness Mr. Cordon is a very pleasant gentleman, pt of Dr. Dias, who is here for confusion. He was recently found to have extensive stage small cell lung cancer. Started on chemo/immunotherapy with carboplatin/etoposide/tecentriq on 04/27/21, s/p C1D3 on 04/30/21. He was having increasing confusion and sent to the ER where his sodium was found to be 113. He went for a CT of the head which was negative and ended up having a seizure in the hospital. He was admitted and his sodium is being slowly corrected, up to 119 now. We were consulted due to his history of malignancy and chemotherapy. Slowly improving however continues to seem very confused during my conversation with him. Oncology History: Initially seen in consult at [facility]. The patient had been in his usual state of health until about 12/17. He then started having issues with swelling and redness of his face and neck with occasional itching, as well as swelling and redness in his upper extremities right greater than left. He was treated with steroids for a possible hypersensitivity phenomenon and did notice marked improvement in his symptoms. However they would recur once steroids were discontinued. The patient was brought to the emergency room by his sister who is a retired radiation oncology nurse when he developed recurrence of symptoms recently. CTA of the chest showed congomerate mediastinal and hilar mass measuring about 10 cm with SVC obstruction with possible invasion of a right upper lobe pulmonary artery branch. He was started on IV Decadron with significant improvement in his symptoms. He had an MRI of the brain which was negative for evidence of malignancy. Chest x-ray had shown similar findings as the CT scan. The patient had biopsy of right supraclavicular node by interventional radiology and was discharged home. Unfortunately the biopsy showed necrotic malignancy which could not be further classified. The case was discussed with pulmonary medicine and the patient referred back to them. He had bronchoscopy with biopsy in 04/12/21 which confirmed small cell lung carcinoma on transbronchial biopsy as well as FNA and right upper lobe lavage and brushings. The patient then had a PET scan on 04/16/21, showing uptake in the supraclavicular, superior mediastinal, or tracheal subcarinal and right hilar adenopathy. Right upper lobe lung nodule, and soft tissue mass in the posterior costophrenic angle. Uptake was also noted in the abdomen and a soft tissue nodule at the level of the luiz hepatis and other mesenteric nodules on the transverse colon. There was also a lytic lesion with uptake in the left femoral head. The patient appeared to have extensive, stage IV disease. He was seen for his first office visit on 04/20/21. He had a history of smoking 1-1.5 packs a day since age 12 till 1984. Since then he had smoked cigars daily. Started carbo/etoposide/tecentriq, C1D3 on 04/30/21. Review of Systems ROS unobtainable: due to mental status Past Medical History Past Medical History: Cancer (Small cell lung cancer, early SVC syndrome), Hypertension, Osteoarthritis (OA) Additional Past Medical History / Comment(s): HX OF POSITIVE TB SKIN TEST WITH TX (1996) History of Any Multi-Drug Resistant Organisms: None Reported Past Surgical History: Hernia Repair, Orthopedic Surgery Additional Past Surgical History / Comment(s): ANGEL CARPAL TUNNEL , ANGEL KNEE SURGERY, ANGEL CATARACT REM. Past Anesthesia/Blood Transfusion Reactions: No Reported Reaction Past Psychological History: No Psychological Hx Reported Additional Psychological History / Comment(s): Pt resides with his spouse. He is independent. Smoking Status: Former smoker Past Alcohol Use History: Daily Additional Past Alcohol Use History / Comment(s): SMOKES 2 CIGARS DAILY. STARTED SMOKING AGE 14, QUIT CIGARETTES 1984. DRINKS 3-4 BEERS DAILY. Past Drug Use History: None Reported - Past Family History Father Family Medical History: Cancer Additional Family Medical History / Comment(s): COLON CANCER Brother(s) Family Medical History: Cancer Additional Family Medical History / Comment(s): BLADDER CANCER Medications and Allergies Home Medications Medication Instructions Recorded Confirmed Type Carboxymethylcellulose Sodium 1 drop BOTH EYES DAILY PRN 03/26/21 04/30/21 History [Refresh Tears] Famotidine [Pepcid] 20 mg PO BID 03/26/21 04/30/21 History amLODIPine [Norvasc] 10 mg PO DAILY #30 tablet 03/30/21 04/30/21 Rx Cetirizine HCl [Zyrtec] 10 mg PO BID 04/30/21 04/30/21 History Dexamethasone [Decadron] 4 mg PO DAILY 04/30/21 04/30/21 History Leg Cramps 1 tab PO DAILY PRN 04/30/21 04/30/21 History OLANZapine [ZyPREXA] 2.5 mg PO DIRECTED 04/30/21 04/30/21 History Ondansetron [Zofran] 4 mg PO Q4H PRN 04/30/21 04/30/21 History Allergies Allergy/AdvReac Type Severity Reaction Status Date / Time No Known Allergies Allergy Verified 04/30/21 18:36 Physical Exam Vitals: Vital Signs Temp Pulse Pulse Resp BP BP Pulse Ox 05/01/21 16:00 98.5 F 87 17 116/68 94 L 05/01/21 15:00 87 12 115/64 95 05/01/21 14:00 93 21 110/56 93 L 05/01/21 13:00 94 22 124/75 93 L 05/01/21 12:00 98 F 88 13 110/61 96 05/01/21 11:00 83 21 110/54 93 L 05/01/21 10:00 90 13 123/81 96 05/01/21 09:00 92 13 123/71 90 L 05/01/21 08:00 98.5 F 80 13 133/72 05/01/21 07:00 86 10 L 133/72 99 05/01/21 06:00 80 14 131/81 98 05/01/21 05:00 98.5 F 77 12 115/101 100 05/01/21 04:00 98.5 F 75 12 122/76 122/76 98 05/01/21 03:00 79 13 135/94 96 05/01/21 02:28 98.4 F 79 12 133/87 97 05/01/21 00:24 98.4 F 78 18 146/90 100 05/01/21 00:11 129/81 04/30/21 22:31 81 18 144/87 96 04/30/21 21:02 79 18 144/104 96 Intake and Output 05/01/21 05/01/21 05/01/21 06:59 14:59 22:59 Intake Total 25 600 100 Output Total 2428 513 450 Balance -2400 -155 -350 Intake: Intake, IV Titration 25 300 100 Amount Dextrose 5% in Water 1, 300 100 000 ml @ 50 mls/hr IV . Q20H [facility] Rx#:[id number] Sodium Chloride 3%( 25 Hypertonic) 500 ml @ 25 mls/hr IV .Q20H [facility] Rx#: [id number] Oral 300 Output: Urine 2425 755 450 Other: Voiding Method Indwelling Catheter Indwelling Catheter Indwelling Catheter Weight 59.7 kg Gen.: no acute distress. HEENT: Mucosa moist. No conjunctival pallor or scleral icterus. Neck: Neck supple. Lungs: No respiratory distress. Heart: Normal rate. Abdomen: Soft. Neuro: Alert and oriented, but slightly confused with conversation. Skin: No jaundice. Psych: Appropriate affect. Results CBC & Chem 7: 05/02/21 07:26 05/02/21 07:26 Labs: Abnormal Lab Results - Last 24 Hours (Table) 04/30/21 04/30/21 04/30/21 Range/Units 19:33 19:33 19:35 WBC 11.1 H (3.8-10.6) k/uL RBC 3.87 L (4.30-5.90) m/uL Hgb 12.1 L (13.0-17.5) gm/dL Hct 34.8 L (39.0-53.0) % RDW 15.6 H (11.5-15.5) % Neutrophils # 10.2 H (1.3-7.7) k/uL Lymphocytes # 0.7 L (1.0-4.8) k/uL Sodium 113 L* (137-145) mmol/L Chloride 81 L (98-107) mmol/L Creatinine 0.33 L (0.66-1.25) mg/dL Glucose 110 H (74-99) mg/dL POC Glucose (mg/dL) 118 H (75-99) mg/dL Osmolality (280-301) mosm/kg Calcium 8.2 L (8.4-10.2) mg/dL Total Protein 6.1 L (6.3-8.2) g/dL 05/01/21 05/01/21 05/01/21 Range/Units 01:01 01:03 03:37 WBC (3.8-10.6) k/uL RBC (4.30-5.90) m/uL Hgb (13.0-17.5) gm/dL Hct (39.0-53.0) % RDW (11.5-15.5) % Neutrophils # (1.3-7.7) k/uL Lymphocytes # (1.0-4.8) k/uL Sodium 118 L* 119 L* (137-145) mmol/L Chloride (98-107) mmol/L Creatinine (0.66-1.25) mg/dL Glucose (74-99) mg/dL POC Glucose (mg/dL) 73 L (75-99) mg/dL Osmolality (280-301) mosm/kg Calcium (8.4-10.2) mg/dL Total Protein (6.3-8.2) g/dL 05/01/21 05/01/21 05/01/21 Range/Units 05:25 08:05 08:05 WBC (3.8-10.6) k/uL RBC 3.81 L (4.30-5.90) m/uL Hgb 12.0 L (13.0-17.5) gm/dL Hct 35.0 L (39.0-53.0) % RDW (11.5-15.5) % Neutrophils # (1.3-7.7) k/uL Lymphocytes # (1.0-4.8) k/uL Sodium 119 L* 120 L (137-145) mmol/L Chloride 86 L (98-107) mmol/L Creatinine 0.50 L (0.66-1.25) mg/dL Glucose (74-99) mg/dL POC Glucose (mg/dL) (75-99) mg/dL Osmolality 255 L (280-301) mosm/kg Calcium 8.1 L (8.4-10.2) mg/dL Total Protein (6.3-8.2) g/dL 05/01/21 05/01/21 Range/Units 11:52 15:58 WBC (3.8-10.6) k/uL RBC (4.30-5.90) m/uL Hgb (13.0-17.5) gm/dL Hct (39.0-53.0) % RDW (11.5-15.5) % Neutrophils # (1.3-7.7) k/uL Lymphocytes # (1.0-4.8) k/uL Sodium 119 L* 117 L* (137-145) mmol/L Chloride (98-107) mmol/L Creatinine (0.66-1.25) mg/dL Glucose (74-99) mg/dL POC Glucose (mg/dL) (75-99) mg/dL Osmolality (280-301) mosm/kg Calcium (8.4-10.2) mg/dL Total Protein (6.3-8.2) g/dL CT Scan - head: report reviewed Assessment and Plan Assessment: 1. Hyponatremia 2. Altered mentation and weakness 3. Extensive stage SCLC 4. Normocytic anemia Plan: Mr. Cordon is a very pleasant 70-year-old gentleman with recently found extensive stage small cell lung cancer status post cycle 1 of chemotherapy with immunotherapy, carbo/etoposide/tecentriq on 04/27/21, who is here for increasing confusion, found to have a seizure in the ER due to severe hyponatremia. 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 This is being corrected slowly by nephrology. Improved at 119 this morning. He has slight normocytic anemia, from hydration and recent chemotherapy. Otherwise received his first cycle of chemotherapy area tolerating this well without any side effects so far. Continues to be slightly confused on exam today. We'll continue to follow patient with you. We'll continue to monitor CBC regularly and monitor for chemotherapy associated toxicity.
--- NOTE | 2021-05-02 12:04 | P.PN ---
Subjective Progress Note Date: 05/02/21 This is a 68-year-old male patient is known to me. 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 Performed a bronchoscopy on him around 2 weeks ago including endobronchial ultrasound and diagnosis was established. At that time, the patient was having issues with hyponatremia and his sodium level was 126. He was asked to take salt tablets. Subsequently, the patient came in few days after receiving his first session of systemic chemotherapy with generalized weakness. He also witnessed a bout of seizure in the emergency department. His sodium level was 113. The patient was started on hypertonic saline solution at 3% and his sodium came up to 120 this morning. Based on that, he was started on D5 water by nephrology. The patient is awake and alert. The patient is doing well. No respiratory difficulties no focal neurological deficit. No ongoing seizure activity. No focal neurological deficit. No headaches. No change in mental status at this point in time and he was awake and alert at time of my evaluation. The most recent sodium level is 119. The white cell count is at 8.4 with a hemoglobin of 12 and a platelet count of 219. Urine osmolality is 408. The CAT scan of the brain was completed and the patient has no evidence of any BACON SLICER metastases. Chest x-ray shows a right hilar mass. The mass is unchanged and the patient is known to have underlying small cell lung cancer. 05/02/2021, the patient is awake and alert. No seizure activity has been noted and the patient has no other issues or complaints or any other symptoms related to his underlying hyponatremia and SIADH. His sodium level came up 120. Due to rapid correction, he was given D5 water and it was discontinued. Subsequent sodium level came back at 119 and the patient was restarted back on 3% saline. The goal is to bring his sodium up to 126 today. The patient is doing well. No respiratory complaints to no fever or chills. No swelling in the face on or chest area although the patient has chronically engorged vessels related to early SVC syndrome. The patient is white cell count is at 7.7 with hemoglobin 12.2 and a BUN of 40 with a creatinine of 0.4. No other significant events otherwise for now. Is tolerating his diet. He is on fluid restriction. Objective - Vital Signs Vital signs: Vital Signs Temp 98.2 F 05/02/21 08:00 Pulse 91 03/06/22 10:00 Resp 12 05/02/21 10:00 BP 126/67 05/02/21 10:00 Pulse Ox 93 L 05/02/21 10:00 Intake & Output 05/01/21 05/02/21 05/02/21 18:59 06:59 18:59 Intake Total 1350 480 330 Output Total 1655 840 260 Balance -305 -360 70 Weight 57.5 kg Intake: Intake, IV Titration 450 Amount Dextrose 5% in Water 1, 450 000 ml @ 50 mls/hr IV . Q20H [facility] Rx#:[id number] Oral 900 480 330 Output: Urine 1655 840 260 Other: Voiding Method Indwelling Catheter Indwelling Catheter Indwelling Catheter # Bowel Movements 1 - Exam GENERAL: The patient is alert and oriented x3, not in any acute distress. Well developed, well nourished. HEENT: Pupils are round and equally reacting to light. EOMI. No scleral icterus. No conjunctival pallor. Normocephalic, atraumatic. No pharyngeal erythema. No thyromegaly. CARDIOVASCULAR: S1 and S2 present. No murmurs, rubs, or gallops. PULMONARY: Chest is clear to auscultation, no wheezing or crackles. ABDOMEN: Soft, nontender, nondistended, normoactive bowel sounds. No palpable organomegaly. MUSCULOSKELETAL: No joint swelling or deformity. EXTREMITIES: No cyanosis, clubbing, or pedal edema. NEUROLOGICAL: Gross neurological examination did not reveal any focal deficits. Examination of the skin revealed no evidence of significant rashes, suspicious appearing nevi or other concerning lesions. - Labs CBC & Chem 7: 05/02/21 07:26 05/02/21 07:26 Labs: Abnormal Lab Results - Last 24 Hours (Table) 05/01/21 05/01/21 05/01/21 Range/Units 11:52 15:58 20:04 RBC (4.30-5.90) m/uL Hgb (13.0-17.5) gm/dL Hct (39.0-53.0) % Sodium 119 L* 117 L* 119 L* (137-145) mmol/L Chloride (98-107) mmol/L Creatinine (0.66-1.25) mg/dL Glucose (74-99) mg/dL Calcium (8.4-10.2) mg/dL 05/02/21 05/02/21 05/02/21 Range/Units 00:51 07:26 07:26 RBC 3.80 L (4.30-5.90) m/uL Hgb 12.2 L (13.0-17.5) gm/dL Hct 34.5 L (39.0-53.0) % Sodium 120 L 119 L* (137-145) mmol/L Chloride 86 L (98-107) mmol/L Creatinine 0.42 L (0.66-1.25) mg/dL Glucose 101 H (74-99) mg/dL Calcium 7.7 L (8.4-10.2) mg/dL Assessment and Plan Plan: 1 tumor hyponatremia/SIADH as the patient is known to have underlying small cell lung cancer. Sodium level was as low as 113. The patient presented with generalized weakness, altered mentation and seizures. She was with hypertonic saline at 3% and the most recent sodium level is at 119. The patient is currently back on normal saline. His sodium came up to 120 and this was assumed to be a rapid correction, given D5 water, subsequent discontinuation of the D5 water and the patient is back on hypertonic 3% saline and the sodium is being monitored 2 small cell lung cancer with signs of early SVC syndrome, currently inactive in stable and the patient is currently receiving systemic chemotherapy, first session was administered last week 3 hypertension 4 osteoarthritis 5 history of latent TB, 1996 Plan Fluid restriction Monitor sodium level, the goal is to bring up his sodium up to 126 today Continue the 3% saline solution Always status is stable Neuro status is stable Wean off Decadron We'll continue to follow. Prognosis poor baseline above-mentioned comorbidities. We'll put the patient heparin subcu for DVT prophylaxis.
[2021-05-02] MEDS ORDERED: FUROSEMIDE 10 MG/ML 2 ML VIAL IV STA (17:52)
[2021-05-03] MEDS ORDERED: FUROSEMIDE 10 MG/ML 2 ML VIAL IV ONE (06:12)
[2021-05-03] MEDS: dexAMETHasone 2 MG TAB PO SCH (08:43)
[2021-05-03] MEDS: FAMOTIDINE 20 MG TAB PO SCH ×2 (08:43→20:17)
[2021-05-03] MEDS: HEPARIN SODIUM,PORCINE/PF 5,000 UNIT/0.5 ML SYRINGE SQ SCH ×3 (08:44→23:47)
--- NOTE | 2021-05-03 11:05 | P.PN ---
Subjective Progress Note Date: 05/03/21 Principal diagnosis: Hyponatremia, seizure. SCLC In f/u today pt is feeling better, he denies any pain, he does not remember much about his admit, does not remember seizure. He tolerated chemo actually pretty well with no reported SE. Objective - Vital Signs Vital signs: Vital Signs Temp 99.2 F 05/03/21 08:00 Pulse 106 H 05/03/21 09:00 Resp 19 05/03/21 09:00 BP 97/58 05/03/21 09:00 Pulse Ox 94 L 05/03/21 09:00 Intake & Output 05/02/21 05/03/21 05/03/21 18:59 06:59 18:59 Intake Total 770 30 100 Output Total 1999 1560 600 Balance -1230 -1530 -500 Weight 57.5 kg Intake: IV 30 Sodium Chloride 3%( 30 Hypertonic) 500 ml @ 30 mls/hr IV .[id number] Rx #:[id number] Intake, IV Titration 0 Amount Sodium Chloride 3%( 0 Hypertonic) 500 ml @ 30 mls/hr IV .[id number] [facility] Rx #:[id number] Oral 770 100 Output: Urine 1999 1560 600 Other: Voiding Method Indwelling Catheter Indwelling Catheter Indwelling Catheter - Constitutional General appearance: Present: cooperative, no acute distress, thin - EENT Eyes: Present: anicteric sclerae, EOMI ENT: Present: hearing grossly normal, normal oropharynx - Neck Details: left neck mildly distended-better then previous. - Respiratory Respiratory: right: CTA, left: diminished - Cardiovascular Rhythm: regular Heart sounds: normal: S1, S2 Abnormal Heart Sounds: Absent: systolic murmur, diastolic murmur, rub, S3 Gallop, S4 Gallop, click, other - Peripheral edema leg Peripheral Edema: bilateral: None - Gastrointestinal General gastrointestinal: Present: normal bowel sounds, soft - Musculoskeletal Musculoskeletal: Present: generalized weakness, strength equal bilaterally - Psychiatric Psychiatric Comment(s): Pt does not recall events during acute illness Psychiatric: Present: A&O x's 3, appropriate affect - Labs CBC & Chem 7: 05/02/21 07:26 05/03/21 09:56 Labs: Abnormal Lab Results - Last 24 Hours (Table) 03/06/22 03/06/22 03/06/22 Range/Units 11:33 16:04 19:56 Sodium 118 L* 119 L* 122 L (137-145) mmol/L 05/03/21 05/03/21 05/03/21 Range/Units 00:14 05:38 09:56 Sodium 122 L 122 L 122 L (137-145) mmol/L Assessment and Plan (1) Hyponatremia Narrative/Plan: 2/2 SCLC, induced SIADH. Nephrology is monitoring and treating currently with IV. Likely pt will need support until he has had a few treatments that can impact SCLC. Will await Nephrology recs, possibly demeclocycline for outpt mgmt. Current Visit: Yes Status: Acute Priority: High Code(s): E87.1 - HYPO-OSM OLALITY AND HYPONATREMIA SNOMED Code(s): 79574255 (2) SIADH (syndrome of inappropriate ADH production) Narrative/Plan: Most likely paraneoplastic 2/2 SCLC either from ectopic ADH production or other tumor factors causing increased pituitary ADH secretion. Nephrology is correcting hyponatremia. Plan for Na+ monitoring and ongoing supportive care during treatment until improved. Current Visit: Yes Status: Acute Priority: High Code(s): E22.2 - SYNDROME OF INAPPROPRIATE SECRETION OF ANTIDIURETIC HORMONE SNOMED Code(s): 19703647 (3) Seizure Narrative/Plan: 2/[address] brain without contrast no hemorrhage, ischemia or brain mets Current Visit: Yes Status: Acute Priority: High Code(s): R56.9 - UNSPECIFIED CONVULSIONS SNOMED Code(s): 63421844 (4) Small cell lung cancer Narrative/Plan: S/P 1st cycle of carbo/[employer]/tecentriq. Labs look good in regards to chemo effect on CBC. Keep on current f/u schedule. Current Visit: Yes Status: Acute Priority: High Code(s): C34.90 - MALIGNANT NEOPLASM OF UNSP PART OF UNSP BRONCHUS OR LUNG SNOMED Code(s): 804737761
--- NOTE | 2021-05-03 11:15 | P.PN ---
Subjective Progress Note Date: 05/03/21 Principal diagnosis: Acute hyponatremia This is a 68-year-old male patient is known to me. 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 Performed a bronchoscopy on him around 2 weeks ago including endobronchial ultrasound and diagnosis was established. At that time, the patient was having issues with hyponatremia and his sodium level was 126. He was asked to take salt tablets. Subsequently, the patient came in few days after receiving his first session of systemic chemotherapy with generalized weakness. He also witnessed a bout of seizure in the emergency department. His sodium level was 113. The patient was started on hypertonic saline solution at 3% and his sodium came up to 120 this morning. Based on that, he was started on D5 water by nephrology. The patient is awake and alert. The patient is doing well. No respiratory difficulties no focal neurological deficit. No ongoing seizure activity. No focal neurological deficit. No headaches. No change in mental status at this point in time and he was awake and alert at time of my evaluation. The most recent sodium level is 119. The white cell count is at 8.4 with a hemoglobin of 12 and a platelet count of 219. Urine osmolality is 408. The CAT scan of the brain was completed and the patient has no evidence of any [employer] metastases. Chest x-ray shows a right hilar mass. The mass is unchanged and the patient is known to have underlying small cell lung cancer. 05/02/2021, the patient is awake and alert. No seizure activity has been noted and the patient has no other issues or complaints or any other symptoms related to his underlying hyponatremia and SIADH. His sodium level came up 120. Due to rapid correction, he was given D5 water and it was discontinued. Subsequent sodium level came back at 119 and the patient was restarted back on 3% saline. The goal is to bring his sodium up to 126 today. The patient is doing well. No respiratory complaints to no fever or chills. No swelling in the face on or chest area although the patient has chronically engorged vessels related to early SVC syndrome. The patient is white cell count is at 7.7 with hemoglobin 12.2 and a BUN of 40 with a creatinine of 0.4. No other significant events otherwise for now. Is tolerating his diet. He is on fluid restriction. On 05/03/2021 patient seen in follow-up in intensive care unit. He is awake and alert, in no acute distress, breathing comfortable, room air pulse ox is 93-94%, one isolated low-grade fever this morning with a temp of 99.2F otherwise afebrile overnight, hemodynamically stable. Hypertonic saline was discontinued yesterday at 9:00 in the morning. No nausea or vomiting. Tolerating oral intake. Today's sodium is 122 at 09 56 this morning. Patient is not on any drips currently. His urine osmolality was 408, and urine random sodium was 131. TSH was within normal limits. Mentation is appropriate, patient is answering questions appropriately. No alteration in mental status, no seizures. Patient currently is on Decadron 3 mg daily, he is on GI and DVT prophylaxis. He was also given a dose of IV Lasix 20 mg daily, nephrology is managing. His had no acute events overnight. Objective - Vital Signs Vital signs: Vital Signs Temp 99.2 F 05/03/21 08:00 Pulse 104 H 05/03/21 10:00 Resp 18 05/03/21 10:00 BP 110/69 05/03/21 10:00 Pulse Ox 93 L 05/03/21 10:00 Intake & Output 05/02/21 05/03/21 05/03/21 18:59 06:59 18:59 Intake Total 770 30 100 Output Total 1999 1560 730 Balance -4641 -1914 -091 Weight 57.5 kg Intake: IV 30 Sodium Chloride 3%( 30 Hypertonic) 500 ml @ 30 mls/hr IV .[id number] [facility] Rx #:[id number] Intake, IV Titration 0 Amount Sodium Chloride 3%( 0 Hypertonic) 500 ml @ 30 mls/hr IV .[id number] [facility] Rx #:[id number] Oral 770 100 Output: Urine 1999 1560 730 Other: Voiding Method Indwelling Catheter Indwelling Catheter Indwelling Catheter - Exam GENERAL EXAM: Alert, very pleasant, 70-year-old white male on room air with a pulse ox of 93-94% comfortable in no apparent distress. HEAD: Normocephalic/atraumatic. EYES: Normal reaction of pupils, equal size. Conjunctiva pink, sclera white. NOSE: Clear with pink turbinates. THROAT: No erythema or exudates. NECK: No masses, no JVD, no thyroid enlargement, no adenopathy. CHEST: No chest wall deformity. Symmetrical expansion. LUNGS: Equal air entry with no crackles, wheeze, rhonchi or dullness. CVS: Regular rate and rhythm, normal S1 and S2, no gallops, no murmurs, no rubs ABDOMEN: Soft, nontender. No hepatosplenomegaly, normal bowel sounds, no guarding or rigidity. EXTREMITIES: No clubbing, no edema, no cyanosis, 2+ pulses and upper and lower extremities. MUSCULOSKELETAL: Muscle strength and tone normal. SPINE: No scoliosis or deformity SKIN: No rashes CENTRAL NERVOUS SYSTEM: Alert and oriented -3. No focal deficits, tone is normal in all 4 extremities. PSYCHIATRIC: Alert and oriented -3. Appropriate affect. Intact judgment and insight. - Labs CBC & Chem 7: 05/02/21 07:26 05/03/21 09:56 Labs: Abnormal Lab Results - Last 24 Hours (Table) 05/02/21 05/02/21 05/02/21 Range/Units 11:33 16:04 19:56 Sodium 118 L* 119 L* 122 L (137-145) mmol/L 05/03/21 05/03/21 05/03/21 Range/Units 00:14 05:38 09:56 Sodium 122 L 122 L 122 L (137-145) mmol/L Assessment and Plan Plan: Assessment: #1. Acute hyponatremia related to SIADH related to underlying small cell lung cancer. Patient was admitted with a serum sodium of 113, and symptoms of gene ralized weakness, altered mentation and seizures. Patient has received a combination of hypertonic saline, diuretics, and currently serum sodium is up to 122. #2. Small cell lung cancer with signs of early SVC syndrome patient is currently receiving systemic chemotherapy #3. Hypertension #4. Osteoarthritis #5. History of latent TB in 1996 Plan: Today's labs have been noted Today's serum sodium is 122 Nephrology recommendations Patient is awake and alert, no altered mentation, no seizures Tolerating oral intake Continue Decadron Continue GI and DVT prophylaxis Stable to transfer out of intensive care unit to medical surgical floor or possible medical oncology I have personally seen and examined the patient, performed the documentation and the assessment and plan as written. Number of minutes spent on the visit: [10] Time with Patient: Less than 30
[2021-05-03 11:38] VITALS: BMI 18.7
--- NOTE | 2021-05-03 11:50 | P.PN ---
Subjective Patient is a pleasant 68-year-old male came in with seizures August's weakness and tiredness found to be severely hyponatremic with a serum sodium of 113. Patient received 3% saline because of the seizure after which his sodium went up to 120 because of significant increase of serum sodium patient was later started on D5 water. Patient's serum sodium will be rechecked again will be started on normal saline most probably later on. Patient denied diarrhea nausea vomiting. Patient's hyponatremia is considered secondary to hypovolemia as well as a possibility of SIADH. 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 Patient is also on Decadron 4 mg for edema from the tumor. Patient received 3 doses of chemotherapy. Patient lung cancer is still active at this time. Patient is off oxygen at this time. Patient used to smoke in the past quit smoking about 4 months ago. 05/02/2021 Patient is clinically doing well no more seizures. Patient is a presently on 3% saline present sodium is 119. No significant improvement compared to yesterday. 05/03/2021 Patient's serum sodium improved to 122, 3% saline was discontinued last night patient received IV Lasix and has a his hyponatremia is considered secondary to SIADH apart from hypovolemia. Patient is on fluid restriction. Patient is being transferred out of ICU. Constitutional: Denied any fatigue denied any fever. Cardio vascular: denied any chest pain, palpitations Gastrointestinal denied any nausea vomiting Pulmonary: Denied any shortness of breath cough Neurologic denied any new focal deficits All inpatient medications were reviewed and appropriate changes in these medications as dictated in the interval history and assessment and plan. PHYSICAL EXAMINATION: GENERAL: The patient is alert and oriented x3, not in any acute distress. Well developed, well nourished. HEENT: Pupils are round and equally reacting to light. EOMI. No scleral icterus. No conjunctival pallor. Normocephalic, atraumatic. No pharyngeal erythema. No thyromegaly. CARDIOVASCULAR: S1 and S2 present. No murmurs, rubs, or gallops. PULMONARY: Chest is clear to auscultation, no wheezing or crackles. ABDOMEN: Soft, nontender, nondistended, normoactive bowel sounds. No palpable organomegaly. MUSCULOSKELETAL: No joint swelling or deformity. EXTREMITIES: No cyanosis, clubbing, or pedal edema. NEUROLOGICAL: Gross neurological examination did not reveal any focal deficits. SKIN: No rashes. Assessment and plan Plan the severe hyponatremia leading to seizures: He is off 3% saline multifactorial hyponatremia secondary to hypovolemia, decreased solute intake, possibility of SIADH, received Lasix today -Seizures secondary to hyponatremia patient will need close clinical monitoring because of his patient is in ICU as needed Ativan 7 benign essential hypertension -Lung cancer with therapy continue Decadron but will cut down the dose to 3 mg daily next DVT prophylaxis: Lovenox -GI prophylaxis Pepcid Objective - Vital Signs Vital signs: Vital Signs Temp 99.2 F 05/03/21 08:00 Pulse 104 H 05/03/21 10:00 Resp 18 05/03/21 10:00 BP 110/69 05/03/21 10:00 Pulse Ox 93 L 05/03/21 10:00 Intake & Output 05/02/21 05/03/21 05/03/21 18:59 06:59 18:59 Intake Total 770 30 100 Output Total 1999 1560 730 Balance -9032 -4702 -488 Weight 57.5 kg 57.5 kg Intake: IV 30 Sodium Chloride 3%( 30 Hypertonic) 500 ml @ 30 mls/hr IV .[id number] [facility] Rx #:[id number] Intake, IV Titration 0 Amount Sodium Chloride 3%( 0 Hypertonic) 500 ml @ 30 mls/hr IV .[id number] [facility] Rx #:[id number] Oral 770 100 Output: Urine 1999 1560 730 Other: Voiding Method Indwelling Catheter Indwelling Catheter Indwelling Catheter - Labs CBC & Chem 7: 05/02/21 07:26 05/03/21 09:56 Labs: Abnormal Lab Results - Last 24 Hours (Table) 05/02/21 05/02/21 05/02/21 Range/Units 11:33 16:04 19:56 Sodium 118 L* 119 L* 122 L (137-145) mmol/L 05/03/21 05/03/21 05/03/21 Range/Units 00:14 05:38 09:56 Sodium 122 L 122 L 122 L (137-145) mmol/L
--- NOTE | 2021-05-03 12:19 | P.PN ---
Subjective Patient is seen for follow-up for hyponatremia. He was maintained on 3% saline which is now discontinued. Patient also received a dose of IV Lasix. Sodium is currently staying at about 122. Admission sodium was as low as 113. Urine osmolality 408. Patient has an underlying right upper lobe mass with large right hilar mass. Patient had has a recent diagnosis of small cell lung cancer. Objective - Vital Signs Vital signs: Vital Signs Temp 99.2 F 05/03/21 08:00 Pulse 104 H 05/03/21 10:00 Resp 18 05/03/21 10:00 BP 110/69 05/03/21 10:00 Pulse Ox 93 L 05/03/21 10:00 Intake & Output 05/02/21 05/03/21 05/03/21 18:59 06:59 18:59 Intake Total 770 30 100 Output Total 1999 1560 730 Balance -1230 -1530 -630 Weight 57.5 kg 57.5 kg Intake: IV 30 Sodium Chloride 3%( 30 Hypertonic) 500 ml @ 30 mls/hr IV .[id number] [facility] Rx #:[id number] Intake, IV Titration 0 Amount Sodium Chloride 3%( 0 Hypertonic) 500 ml @ 30 mls/hr IV .[id number] [facility] Rx #:[id number] Oral 770 100 Output: Urine 1999 1560 730 Other: Voiding Method Indwelling Catheter Indwelling Catheter Indwelling Catheter - Exam Patient is awake comfortable. Not in any acute distress. Examination of the heart S1 and S2 Examination lungs bilateral breath sounds are heard Abdomen is soft nontender Examination lower extremity shows no significant edema - Labs CBC & Chem 7: 05/02/21 07:26 05/03/21 09:56 Labs: Abnormal Lab Results - Last 24 Hours (Table) 05/02/21 05/02/21 05/02/21 Range/Units 11:33 16:04 19:56 Sodium 118 L* 119 L* 122 L (137-145) mmol/L 05/03/21 05/03/21 05/03/21 Range/Units 00:14 05:38 09:56 Sodium 122 L 122 L 122 L (137-145) mmol/L Assessment and Plan Plan: 1. Hyponatremia initially hypovolemic but with underlying SIADH. Status post 3% saline. Will give 1 dose of Tolvaptan and today based on his repeat sodium this afternoon 2. Right upper lobe mass with large hilar mass with recent diagnosis of small cell lung cancer. 3. Seizures secondary to hyponatremia status post 3% saline. Plan Repeat sodium this afternoon and give 1 dose of tolvaptan if not further increased. Encourage increased oral intake particularly protein. Patient will need close monitoring of his sodium levels as outpatient and may benefit from outpatient treatment with tolvaptan as well
[2021-05-03] MEDS ORDERED: TOLVAPTAN 15 MG 1/2 TABLET PO ONE (19:40)
[2021-05-04 03:23] VITALS: TEMP 98.6
[2021-05-04 06:45] LABS: African American GFR (CKD) >90 (>60 ml/min/1.73 sqM); Anion Gap 5 mmol/L; Blood Urea Nitrogen 18 mg/dL (9-20); Calcium 8.6 mg/dL (8.4-10.2); Carbon Dioxide 31 mmol/L (22-30); Chloride 93 mmol/L (98-107); Glucose 105 mg/dL (74-99); Non-African American GFR(CKD) >90 (>60 ml/min/1.73 sqM); Sodium 129 mmol/L (137-145)
[2021-05-04 08:23] VITALS: BP 126/71; PULSE 50; RESP 16
[2021-05-04] MEDS: dexAMETHasone 2 MG TAB PO SCH (08:46)
[2021-05-04] MEDS: FAMOTIDINE 20 MG TAB PO SCH (08:46)
[2021-05-04] MEDS: HEPARIN SODIUM,PORCINE/PF 5,000 UNIT/0.5 ML SYRINGE SQ SCH (08:46)
[2021-05-04] MEDS ORDERED: TOLVAPTAN 15 MG 1/2 TABLET PO ONE (10:03)
--- NOTE | 2021-05-04 11:28 | P.PN ---
Subjective Progress Note Date: 05/04/21 Principal diagnosis: Hyponatremia, seizure. SCLC In f/u today pt is stable, he is walking around room, he is a little anxious and behaving slightly paranoid-states some of his belongings are missing but he has not yet looked in his bags. Objective - Vital Signs Vital signs: Vital Signs Temp 98.6 F 05/04/21 08:00 Pulse 50 L 05/04/21 08:00 Resp 16 05/04/21 08:00 BP 126/71 05/04/21 08:00 Pulse Ox 92 L 05/04/21 08:00 Intake & Output 05/03/21 05/04/21 05/04/21 18:59 06:59 18:59 Intake Total 100 Output Total 730 Balance -630 Weight 57.5 kg Intake: Oral 100 Output: Urine 730 Other: Voiding Method Urinal Urinal # Voids 7 # Bowel Movements 0 - Exam WD, thin, no physical distress, displaying mild anxiety, not angry or aggressive. Resp are even and unlabored as he walks around the room. - Labs CBC & Chem 7: 05/02/21 07:26 05/04/21 06:16 Labs: Abnormal Lab Results - Last 24 Hours (Table) 05/03/21 05/04/21 Range/Units 14:54 06:16 Sodium 122 L 129 L (137-145) mmol/L Chloride 93 L (98-107) mmol/L Carbon Dioxide 31 H (22-30) mmol/L Creatinine 0.42 L (0.66-1.25) mg/dL Glucose 105 H (74-99) mg/dL Assessment and Plan (1) Hyponatremia Narrative/Plan: 2/2 SCLC, induced SIADH. D/W Nephrology. Plan is for medication and fluid restriction. His Na+ will be monitored out pt with weekly lab draws. Likely pt will need support until he has had a few treatments that can impact SCLC. Current Visit: Yes Status: Acute Priority: High Code(s): E87.1 - HYPO- OSMOLALITY AND HYPONATREMIA SNOMED Code(s): 85306753 (2) SIADH (syndrome of inappropriate ADH production) Narrative/Plan: Most likely paraneoplastic 2/2 SCLC either from ectopic ADH production or other tumor factors causing increased pituitary ADH secretion. Nephrology is correcting hyponatremia. Plan for Na+ monitoring and ongoing supportive care during treatment until improved. Current Visit: Yes Status: Acute Priority: High Code(s): E22.2 - SYNDROME OF INAPPROPRIATE SECRETION OF ANTIDIURETIC HORMONE SNOMED Code(s): 85551579 (3) Seizure Narrative/Plan: 2/[address] brain without contrast no hemorrhage, ischemia or brain mets Current Visit: Yes Status: Acute Priority: High Code(s): R56.9 - UNSPECIFIED CONVULSIONS SNOMED Code(s): 17875739 (4) Small cell lung cancer Narrative/Plan: S/P 1st cycle of carbo/[employer]/tecentriq. Labs look good in regards to chemo effect on CBC. Keep on current f/u schedule. Current Visit: Yes Status: Acute Priority: High Code(s): C34.90 - MALIGNANT NEOPLASM OF UNSP PART OF UNSP BRONCHUS OR LUNG SNOMED Code(s): 982719720 Plan: Doctor attests: I performed a history and physical examination of this patient, developed impression and plan of care, discussed with dictator. I agree with dictators note, documented as a scribe.
--- NOTE | 2021-05-04 12:10 | P.PN ---
Subjective Progress Note Date: 05/04/21 Principal diagnosis: Acute hyponatremia This is a 68-year-old male patient is known to me. 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 Performed a bronchoscopy on him around 2 weeks ago including endobronchial ultrasound and diagnosis was established. At that time, the patient was having issues with hyponatremia and his sodium level was 126. He was asked to take salt tablets. Subsequently, the patient came in few days after receiving his first session of systemic chemotherapy with generalized weakness. He also witnessed a bout of seizure in the emergency department. His sodium level was 113. The patient was started on hypertonic saline solution at 3% and his sodium came up to 120 this morning. Based on that, he was started on D5 water by nephrology. The patient is awake and alert. The patient is doing well. No respiratory difficulties no focal neurological deficit. No ongoing seizure activity. No focal neurological deficit. No headaches. No change in mental status at this point in time and he was awake and alert at time of my evaluation. The most recent sodium level is 119. The white cell count is at 8.4 with a hemoglobin of 12 and a platelet count of 219. Urine osmolality is 408. The CAT scan of the brain was completed and the patient has no evidence of any [employer] metastases. Chest x-ray shows a right hilar mass. The mass is unchanged and the patient is known to have underlying small cell lung cancer. 05/02/2021, the patient is awake and alert. No seizure activity has been noted and the patient has no other issues or complaints or any other symptoms related to his underlying hyponatremia and SIADH. His sodium level came up 120. Due to rapid correction, he was given D5 water and it was discontinued. Subsequent sodium level came back at 119 and the patient was restarted back on 3% saline. The goal is to bring his sodium up to 126 today. The patient is doing well. No respiratory complaints to no fever or chills. No swelling in the face on or chest area although the patient has chronically engorged vessels related to early SVC syndrome. The patient is white cell count is at 7.7 with hemoglobin 12.2 and a BUN of 40 with a creatinine of 0.4. No other significant events otherwise for now. Is tolerating his diet. He is on fluid restriction. On 05/03/2021 patient seen in follow-up in intensive care unit. He is awake and alert, in no acute distress, breathing comfortable, room air pulse ox is 93-94%, one isolated low-grade fever this morning with a temp of 99.2F otherwise afebrile overnight, hemodynamically stable. Hypertonic saline was discontinued yesterday at 9:00 in the morning. No nausea or vomiting. Tolerating oral intake. Today's sodium is 122 at 09 56 this morning. Patient is not on any drips currently. His urine osmolality was 408, and urine random sodium was 131. TSH was within normal limits. Mentation is appropriate, patient is answering questions appropriately. No alteration in mental status, no seizures. Patient currently is on Decadron 3 mg daily, he is on GI and DVT prophylaxis. He was also given a dose of IV Lasix 20 mg daily, nephrology is managing. His had no acute events overnight. On 05/04/2021 patient seen in follow-up, on medical surgical floor. Patient is awake alert, in no acute distress, breathing comfortably, pulse ox is 92-97%, hemodynamically stable, no acute events overnight. No difficulty breathing, no cough, no phlegm production. Not any oxygen or IV fluids, today's serum sodium is up to 129, potassium is 4.0, chloride is 93, CO2 31, BUN is 18 creatinine 0.42. No nausea vomiting or diarrhea. Objective - Vital Signs Vital signs: Vital Signs Temp 98.6 F 05/04/21 08:00 Pulse 50 L 05/04/21 08:00 Resp 16 05/04/21 08:00 BP 126/71 05/04/21 08:00 Pulse Ox 92 L 05/04/21 08:00 Intake & Output 05/03/21 05/04/21 05/04/21 18:59 06:59 18:59 Intake Total 100 Output Total 730 Balance -630 Weight 57.5 kg Intake: Oral 100 Output: Urine 730 Other: Voiding Method Urinal Urinal # Voids 7 # Bowel Movements 0 - Exam GENERAL EXAM: Alert, very pleasant, 70-year-old white male on room air with a pulse ox of 93-94% comfortable in no apparent distress. HEAD: Normocephalic/atraumatic. EYES: Normal reaction of pupils, equal size. Conjunctiva pink, sclera white. NOSE: Clear with pink turbinates. THROAT: No erythema or exudates. NECK: No masses, no JVD, no thyroid enlargement, no adenopathy. CHEST: No chest wall deformity. Symmetrical expansion. LUNGS: Equal air entry with no crackles, wheeze, rhonchi or dullness. CVS: Regular rate and rhythm, normal S1 and S2, no gallops, no murmurs, no rubs ABDOMEN: Soft, nontender. No hepatosplenomegaly, normal bowel sounds, no guarding or rigidity. EXTREMITIES: No clubbing, no edema, no cyanosis, 2+ pulses and upper and lower extremities. MUSCULOSKELETAL: Muscle strength and tone normal. SPINE: No scoliosis or deformity SKIN: No rashes CENTRAL NERVOUS SYSTEM: Alert and oriented -3. No focal deficits, tone is normal in all 4 extremities. PSYCHIATRIC: Alert and oriented -3. Appropriate affect. Intact judgment and insight. - Labs CBC & Chem 7: 05/02/21 07:26 05/04/21 06:16 Labs: Abnormal Lab Results - Last 24 Hours (Table) 05/03/21 05/04/21 Range/Units 14:54 06:16 Sodium 122 L 129 L (137-145) mmol/L Chloride 93 L (98-107) mmol/L Carbon Dioxide 31 H (22-30) mmol/L Creatinine 0.42 L (0.66-1.25) mg/dL Glucose 105 H (74-99) mg/dL Assessment and Plan Plan: Assessment: #1. Acute hyponatremia related to SIADH related to underlying small cell lung cancer. Patient was admitted with a serum sodium of 113, and symptoms of generalized weakness, altered mentation and seizures. Patient has received a combination of hypertonic saline, diuretics, and currently serum sodium is up to 129. #2. Small cell lung cancer with signs of early SVC syndrome patient is currently receiving systemic chemotherapy #3. Hypertension #4. Osteoarthritis #5. History of latent TB in 1996 Plan: Today's labs have been noted Today's serum sodium is 129 No Altered mentation, no seizures Clinical patient has remained stable No difficulty breathing, stable vitals Tolerating oral intake Increase activity as tolerated Stable for discharge home from pulmonary perspective Outpatient follow-up with Dr. Nelson in the office in one or 2 weeks I have personally seen and examined the patient, performed the documentation and the assessment and plan as written. Number of minutes spent on the visit: [10] Time with Patient: Less than 30
--- NOTE | 2021-05-04 15:24 | P.DS ---
Providers Date of admission: 05/01/21 00:00 Expected date of discharge: 05/04/21 Attending physician: Mike Collins Consults: 04/30/21 23:38 Consult Physician Routine Consulting Provider: Alfredo Dias Consult Reason/Comments: established patient Do you want consulting provider notified?: Yes, Notify in am 05/01/21 00:00 Consult Physician Stat Consulting Provider: Bayron Mckinney Consult Reason/Comments: hyponatremia, seizure Do you want consulting provider notified?: Already Contacted 05/01/21 00:01 Consult Physician Routine Consulting Provider: Fred Nelson Consult Reason/Comments: ICU, hyponat Do you want consulting provider notified?: Already Contacted Primary care physician: Stated None Hospital Course: Final diagnosis Severe hyponatremia followed by seizure activity, secondary to hypovolemia decreased solute intake, 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 GI prophylaxis DVT prophylaxis Full code Discharge disposition Patient is being discharged in a stable condition with guarded prognosis to home. Patient will follow-up with the [facility] clinic in the outpatient setting upon discharge. Patient is to altered oncology Dr. Dias along with post monitoring of electrolytes and sodium levels. Prescription was provided. Patient will continue on sodium chloride tablets 1 g per nephrology and close outpatient follow-up in the next 2-3 days of labs. Total time taken is greater than 35 minutes. Hospital course This is a 70-year-old male who was recently admitted with severe hyponatremia and was being closely monitored. Patient was initially started on hypertonic 3% saline and also concern for seizures. Nephrology following closely along with oncology. Possibly a component of hypovolemia as well as a possibility of SIADH. 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 Patient continues to follow with oncology Dr. Dias and has an appointment scheduled this week. Patient will continue on sodium chloride tablets and close monitoring of sodium levels in the outpatient setting and this was discussed with nephrology. Patient did receive 2 doses of Samsca and shown to have improvement in sodium level. Current sodium level is 129. Patient will continue on 1 g of sodium chloride tablets daily along with fluid restrictions of 40 ounces per day and this was discussed with the patient. Patient states he is feeling much better and requesting to go home. Currently no reports of chest pain, shortness of breath, or palpitations. Patient is afebrile. No reports of nausea or vomiting and patient is tolerating diet. Patient will be discharged home today. Guarded prognosis. On exam vital signs are stable. Cardio S1, S2 are muffled. Respiratory system shows diminished breath sounds at the bases with no wheezing or rhonchi noted. Abdomen is soft and nontender. Nervous system shows no focal deficits. Please refer to medication reconciliation sheet for a list of medications. The impression and plan of care has been dictated by Keren Dickson, nurse practitioner as directed. MD Alpesh I have performed a history and examination and MDM of this patient, discussed the same with the dictator, and agree with the dictator's assessment and plan as written ,documented as a scribe. Based on total visit time, I have performed more than 50% of the visit. Total number of minutes spent on this visit, 10 minutes. Any additional findings or plans will be noted. Patient Condition at Discharge: Fair Plan - Discharge Summary New Discharge Prescriptions: New Sodium Chloride Tab 1 gm PO DAILY 30 Days #30 tablet dexAMETHasone ORAL [Hexadrol] 3 mg PO DAILY #10 tab Continue Carboxymethylcellulose Sodium [Refresh Tears] 1 drop BOTH EYES DAILY PRN PRN Reason: DRY EYES Ondansetron [Zofran] 4 mg PO Q4H PRN PRN Reason: Nausea Famotidine [Pepcid] 20 mg PO BID OLANZapine [ZyPREXA] 2.5 mg PO DIRECTED Cetirizine HCl [Zyrtec] 10 mg PO BID Leg Cramps 1 tab PO DAILY PRN PRN Reason: LEG CRAMPS Discontinued Dexamethasone [Decadron] 4 mg PO DAILY amLODIPine [Norvasc] 10 mg PO DAILY #30 tablet Discharge Medication List Carboxymethylcellulose Sodium [Refresh Tears] 1 drop BOTH EYES DAILY PRN 03/26/21 [History] Famotidine [Pepcid] 20 mg PO BID 03/26/21 [History] Cetirizine HCl [Zyrtec] 10 mg PO BID 04/30/21 [History] Leg Cramps 1 tab PO DAILY PRN 04/30/21 [History] OLANZapine [ZyPREXA] 2.5 mg PO DIRECTED 04/30/21 [History] Ondansetron [Zofran] 4 mg PO Q4H PRN 04/30/21 [History] Sodium Chloride Tab 1 gm PO DAILY 30 Days #30 tablet 05/04/21 [Rx] dexAMETHasone ORAL [Hexadrol] 3 mg PO DAILY #10 tab 05/04/21 [Rx] Follow up Appointment(s)/Referral(s): Alfredo Dias MD [STAFF PHYSICIAN] - 05/11/21 3:00 pm (This appt is at the office located behind [facility] ([facility]) ) [facility],Clinic [Family Provider] - 1-2 Days Ambulatory/Diagnostic Orders: Basic Metabolic Panel [LAB.AMB] Time Frame: 2 Days, Location: None Selected Patient Instructions/Handouts: Lung Cancer (DC), Hyponatremia (DC) Activity/Diet/Wound Care/Special Instructions: Activity Limited until follow-up Follow-up with oncology outpatient Follow-up primary care provider on discharge Repeat labs of BMP in 2-3 days to monitor sodium level Patient continue with sodium chloride tablets 1 g daily Follow-up nephrology outpatient Continue current diet Patient is to continue with 1200 mL fluid restrictions (maximum 40 ounces daily) that includes all liquid oral intake Discharge Disposition: HOME SELF-CARE
--- NOTE | 2021-05-04 16:37 | PN ---
PROGRESS NOTE Patient is seen for followup for hyponatremia, mostly associated with SIADH. Patient received a dose of tolvaptan. His sodium is up to 129. His insurance from [place] does not cover the tolvaptan. On examination today, patient denied any significant complaints. Blood pressure was 126/71, heart rate 50 per minute. He is afebrile. Examination of the heart: S1, S2. Examination of the lungs: Bilateral breath sounds are heard. Abdomen is soft, non- tender. Examination of lower extremities shows no significant edema. 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 Labs show sodium 129, potassium 4.0, chloride 93, BUN 18, creatinine 0.42. ASSESSMENT: 1. Hyponatremia secondary to SIADH, currently improved with tolvaptan. Will repeat another dose and maintain patient on fluid restriction and add a sodium chloride tablet with close followup of labs as outpatient in about one week's time. 2. Right upper lobe mass with large right hilar mass with recent diagnosis of small- cell lung cancer. 3. Seizure secondary to hyponatremia, status post 3% saline on initial admission. PLAN: Repeat tolvaptan. Patient can be discharged with close monitoring of sodium as outpatient. He can be discharged on sodium chloride tabs 1 gram daily. MMODL / IJN: [id number] /
== END 2021-05-04 13:15 | disposition home or self-care (01) | DRG 644 ==
LOC: EC 15:50 → 2SICU 05-01 → 4SSUR 05-03 21:36
PROVIDERS: ADMIT Hospitalist; ATTEND Hospitalist
DX: E22.2 Syndrome of inappropriate secretion of antidiuretic hormone (principal); C34.11 Malignant neoplasm of upper lobe, right bronchus or lung; I87.1 Compression of vein; D64.9 Anemia, unspecified; E86.1 Hypovolemia; F17.290 Nicotine dependence, other tobacco product, uncomplicated; I10 Essential (primary) hypertension; M19.90 Unspecified osteoarthritis, unspecified site; R56.9 Unspecified convulsions; Z79.899 Other long term (current) drug therapy; Z80.0 Family history of malignant neoplasm of digestive organs; Z80.52 Family history of malignant neoplasm of bladder; Z86.15 Personal history of latent tuberculosis infection; Z98.890 Other specified postprocedural states; Z98.42 Cataract extraction status, left eye; Z98.41 Cataract extraction status, right eye
CPT/HCPCS: 36415; 70450; 71046; 80048; 80053; 81003; 82140; 83930; 83935; 84295; 84300; 84443; 84484; 85025; 85610; 85730; 93005; 94760; 96361; 96374; 99291

== ENCOUNTER 2021-05-06 17:43 | Inpatient (IN) | payer OTHER, MEDICARE ==
[2021-05-06 18:39] LABS: African American GFR (CKD) >90 (>60 ml/min/1.73 sqM); Anion Gap 5 mmol/L; Blood Urea Nitrogen 23 mg/dL (9-20); Calcium 8.1 mg/dL (8.4-10.2); Carbon Dioxide 26 mmol/L (22-30); Chloride 95 mmol/L (98-107); Glucose 126 mg/dL (74-99); Non-African American GFR(CKD) >90 (>60 ml/min/1.73 sqM); Potassium 4.7 mmol/L (3.5-5.1); Sodium 126 mmol/L (137-145)
--- NOTE | 2021-05-06 18:40 | ED ---
General Adult HPI - General Chief complaint: Recheck/Abnormal Lab/Rx Stated complaint: Needs Sodium level checked, CA PT Time Seen by Provider: 05/06/21 18:04 Source: patient Mode of arrival: wheelchair Limitations: no limitations - History of Present Illness Initial comments: Dictation was produced using [employer] dictation software. please excuse any grammatical, word or spelling errors. Chief Complaint: 70-year-old male with past medical history of cancer this emergency Department for acute delirium History of Present Illness: This 70-year-old male he has past medical history of cancer being actively treated with chemotherapy. Patient has a history of small cell lung cancer. Patient recently admitted to the hospital for critical hyponatremia. According to ex- at the bedside patient was admitted recently to the intensive care unit for critical hyponatremia associated with seizure. He was admitted to the hospital for several days. Ex- reports that upon calling back home he seemed to be well. 2 days ago however he began having signs of acute delirium. He was discharged 2 days ago. Ex- reported the patient was admitted and had workup. He was started on steroids and now he isn't tapering dose. He was supposed to have a sodium recheck today however was unable to make his Appointment. reports that he had an episode of acute delirium where he was hallucinating. Ex- reports that today he seemed to be much more like when he was just discharged from the hospital. Ex- reports that they're not told why patient's sodium was a little. Patient is a unreliable historian. He does however report that he feels well. The ROS documented in this emergency department record has been reviewed and confirmed by me. Those systems with pertinent positive or negative responses have been documented in the HPI. All other systems are other negative and/or noncontributory. PHYSICAL EXAM: General Impression: Alert and oriented x3/4, reports that the year is 3003, not in acute distress HEENT: Normocephalic atraumatic, extra-ocular movements intact, pupils equal and reactive to light bilaterally, mucous membranes moist. Cardiovascular: Heart regular rate and rhythm Chest: Able to complete full sentences, no retractions, no tachypnea Abdomen: abdomen soft, non-tender, non-distended, no organomegaly Musculoskeletal: Pulses present and equal in all extremities, no peripheral edema Motor: no focal deficits noted Neurological: CN II-XII grossly intact, no focal motor or sensory deficits noted Skin: Intact with no visualized rashes Psych: Normal affect and mood ED course: 70-year-old male who was recently admitted to the hospital for severe hyponatremia just discharged 2 days ago presents to the emergency room for acute delirium. Ex- believes the patient is evaluated for hyponatremia. Vital signs upon arrival are within acceptable limits. According to ex-'s knowledge patient does not have any metastatic lesions to the brain. Chart review shows patient is status post first cycle of chemotherapy. CBC shows a pancytopenia. Leukopenia 1.3, hemoglobin 10.0 and platelets of 100. So seems to be much worse then 4 days ago. Metabolic panel shows sodium 126. Rest metabolic panel is within acceptable limits. Patient's aplastic anemia is likely secondary to recent chemotherapy. Patient be admitted to the hospital. Blood cultures ordered and pending. Consultation will be made to neurology and oncology. - Related Data Home Medications Medication Instructions Recorded Confirmed Carboxymethylcellulose Sodium 1 drop BOTH EYES DAILY PRN 03/26/21 05/06/21 [Refresh Tears] Leg Cramps 1 tab PO DAILY PRN 04/30/21 05/06/21 OLANZapine [ZyPREXA] 2.5 mg PO DIRECTED 04/30/21 05/06/21 Ondansetron [Zofran] 4 mg PO Q4H PRN 04/30/21 05/06/21 dexAMETHasone ORAL [Hexadrol] 1 mg PO DAILY 05/06/21 05/06/21 Previous Rx's Medication Instructions Recorded Sodium Chloride Tab 1 gm PO DAILY 30 Days #30 tablet 05/04/21 Allergies Allergy/AdvReac Type Severity Reaction Status Date / Time No Known Allergies Allergy Verified 05/06/21 19:25 Review of Systems ROS Statement: Those systems with pertinent positive or pertinent negative responses have been documented in the HPI. ROS Other: All systems not noted in ROS Statement are negative. Past Medical History Past Medical History: Cancer, Hypertension, Osteoarthritis (OA) Additional Past Medical History / Comment(s): HX OF POSITIVE TB SKIN TEST WITH [place] (1996) History of Any Multi-Drug Resistant Organisms: None Reported Past Surgical History: Hernia Repair, Orthopedic Surgery Additional Past Surgical History / Comment(s): ANGEL CARPAL TUNNEL , ANGEL KNEE SURGERY, ANGEL CATARACT REM. Past Anesthesia/Blood Transfusion Reactions: No Reported Reaction Past Psychological History: No Psychological Hx Reported Smoking Status: Former smoker Past Alcohol Use History: Daily Past Drug Use History: None Reported - Past Family History Father Family Medical History: Cancer Additional Family Medical History / Comment(s): COLON CANCER Brother(s) Family Medical History: Cancer Additional Family Medical History / Comment(s): BLADDER CANCER General Exam Limitations: no limitations Course Vital Signs 05/06/21 05/06/21 05/06/21 17:54 18:19 19:35 Temperature 99.0 F Pulse Rate 102 H 94 95 Respiratory 20 18 18 Rate Blood Pressure 113/58 121/69 133/73 O2 Sat by Pulse 97 95 97 Oximetry Medical Decision Making - Lab Data Result diagrams: 05/06/21 19:37 05/06/21 18:19 Lab Results 05/06/21 05/06/21 05/06/21 Range/Units 18:19 18:53 19:37 WBC 1.3 L* (3.8-10.6) k/uL RBC 3.16 L (4.30-5.90) m/uL Hgb 10.0 L D (13.0-17.5) gm/dL Hct 28.8 L (39.0-53.0) % MCV 90.9 (80.0-100.0) fL MCH 31.6 (25.0-35.0) pg MCHC 34.8 (31.0-37.0) g/dL RDW 15.5 (11.5-15.5) % Plt Count 100 L D (150-450) k/uL MPV 7.3 Sodium 126 L (137-145) mmol/L Potassium 4.7 (3.5-5.1) mmol/L Chloride 95 L (98-107) mmol/L Carbon Dioxide 26 (22-30) mmol/L Anion Gap 5 mmol/L BUN 23 H (9-20) mg/dL Creatinine 0.33 L (0.66-1.25) mg/dL Est GFR (CKD-EPI)AfAm >90 (>60 ml/min/1.73 sqM) Est GFR (CKD-EPI)NonAf >90 (>60 ml/min/1.73 sqM) Glucose 126 H (74-99) mg/dL Calcium 8.1 L (8.4-10.2) mg/dL Magnesium 1.8 (1.6-2.3) mg/dL Disposition Clinical Impression: Acute delirium, Pancytopenia Disposition: ADMITTED IP TO THIS HOSP Condition: Serious
--- NOTE | 2021-05-06 19:29 | CT ---
EXAM: CT brain wo con CLINICAL HISTORY: Acute delirium and deficient sodium levels. COMPARISON: 04/30/2021 TECHNIQUE: Contiguous axial noncontrast images of the brain were obtained. Coronal and sagittal refor mats were generated and reviewed. Automated dose control was used for this exam. FINDINGS: There is no evidence for intracranial hemorrhage, mass effect or midline shift. The white matter is g rossly preserved. Ventricular size and configuration is within normal limits for degree of parenchymal volume. The paranasal sinuses are clear. The mastoid air cells are clear. No evidence for calvarial fracture. IMPRESSION: No acute intracranial abnormality.
[2021-05-06] MEDS ORDERED: NALOXONE 0.4 MG/ML 1 ML VIAL IV PRN (19:45)
[2021-05-06 20:01] LABS: HCT 28.8 % (39.0-53.0); MCH 31.6 pg (25.0-35.0); MCHC 34.8 g/dL (31.0-37.0); MCV 90.9 fL (80.0-100.0); Mean Platelet Volume 7.3; RBC 3.16 m/uL (4.30-5.90); RDW 15.5 % (11.5-15.5)
[2021-05-06 20:18] LABS: WBC 1.3 k/uL (3.8-10.6)
[2021-05-06] MEDS: SODIUM CHLORIDE 0.9% 1,000 ML IV SCH (20:41)
[2021-05-06 20:57] LABS: Band Neutrophils % 3 %; Lymphocytes # (M) 0.68 k/uL (1.0-4.8); Monocytes # (M) 0.01 k/uL (0-1.0); Neutrophils % (M) 44 %; Nucleated Red Blood Cells 0 /100 WBC (0-0); Total Cells Counted 100
[2021-05-06 21:00] LABS: Platelet Count 100 k/uL (150-450)
[2021-05-06 23:25] LABS: Appearance,Urine Clear (Clear); Bilirubin,Urine Negative (Negative); Blood,Urine Negative (Negative); Color,Urine Yellow; Glucose,Urine (UA) Negative (Negative); Ketones,Urine Negative (Negative); Leukocyte Esterase,Urine Negative (Negative); Nitrite,Urine Negative (Negative); PH, Urine 6.5 (5.0-8.0); Protein,Urine Trace (Negative); Specific Gravity,Urine 1.025 (1.001-1.035)
[2021-05-07 06:13] LABS: HCT 30.6 % (39.0-53.0); HGB 10.8 gm/dL (13.0-17.5); MCH 32.1 pg (25.0-35.0); MCHC 35.3 g/dL (31.0-37.0); Mean Platelet Volume 7.2; Platelet Count 124 k/uL (150-450); RBC 3.36 m/uL (4.30-5.90); RDW 14.9 % (11.5-15.5)
[2021-05-07 06:27] LABS: ALT 26 U/L (4-49); AST 26 U/L (17-59); African American GFR (CKD) >90 (>60 ml/min/1.73 sqM); Albumin 2.9 g/dL (3.5-5.0); Albumin/Globulin Ratio 1.1; Alkaline Phosphatase 70 U/L (38-126); Anion Gap 1 mmol/L; Blood Urea Nitrogen 18 mg/dL (9-20); Carbon Dioxide 32 mmol/L (22-30); Chloride 94 mmol/L (98-107); Globulin 2.7 g/dL; Glucose 92 mg/dL (74-99); Non-African American GFR(CKD) >90 (>60 ml/min/1.73 sqM); Sodium 127 mmol/L (137-145); Total Protein 5.6 g/dL (6.3-8.2)
[2021-05-07 06:46] LABS: WBC 1.2 k/uL (3.8-10.6)
[2021-05-07 09:44] LABS: Band Neutrophils % 2 %; Eosinophils # (M) 0.01 k/uL (0-0.7); Lymphocytes # (M) 0.68 k/uL (1.0-4.8); Monocytes # (M) 0.04 k/uL (0-1.0); Neutrophils % (M) 37 %
[2021-05-07 09:45] LABS: Nucleated Red Blood Cells 0 /100 WBC (0-0); Total Cells Counted 100
[2021-05-07 09:46] LABS: RBC Morphology Normal
[2021-05-07 09:56] LABS: Neutrophils # (M) 0.44 k/uL (1.3-7.7)
[2021-05-07 12:29] VITALS: BMI 18.3
[2021-05-07] MEDS ORDERED: CRAMPS PO PRN (13:37)
[2021-05-07] MEDS ORDERED: ONDANSETRON 4 MG TAB PO PRN (13:37)
[2021-05-07] MEDS ORDERED: ARTIFICIAL TEARS-HYPROMELLOSE DROPS 15 ML BTL BOTH EYES PRN (13:37)
--- NOTE | 2021-05-07 13:44 | P.HPIM ---
History of Present Illness H&P Date: 05/07/21 This is a pleasant 70-year-old male who was recently admitted with altered mental status and per the acute delirium. Patient was recently just discharged for severe hyponatremia. Patient was evaluated by physical therapy recommending subacute rehab although patient refused at that time and wanted to go home and Homecare was being arranged. Per patient continued to be confused and more altered and so was brought back to the hospital for further evaluation. Neurology and oncology been consulted and pending. Will also consult nephrology as patient sodium continues to be low and is currently 127. Patient does have an extensive past medical history of hypertension, osteoarthritis, EtOH abuse, and also small cell lung carcinoma and is currently receiving chemo immunotherapy treatments. Patient has been on high-dose steroids with a taper of Decadron per oncology services. Patient also recently had further workup with a bronchoscopy with biopsy in March that confirmed the small cell lung carcinoma and patient also underwent PET scan and findings were extensive stage IV disease. On admission to the ER labs were found to be a WBC of 1.3, hemoglobin 10.0, platelets were 100, sodium was 126, potassium 4.7, BUN 23, creatinine 0.33, magnesium 1.8, urinalysis is negative. Patient had a CT of the brain without contrast showing no evidence of intracranial hemorrhage mass effect or midline shift the white matter is grossly preserved and there is no acute intracranial abnormality noted. Patient was admitted for further evaluation and will also have PT/OT therapy evaluate the patient and will consult case management/oncology social worker to evaluate for ECF. Consultations currently pending. Review Of Systems: unable to obtain as patient is confused at times Active Medications Folic Acid (Folic Acid 1 Mg Tab) 1 mg PO DAILY [facility] Sodium Chloride (Saline 0.9%) 1,000 mls @ 20 mls/hr IV .Q24H SUNG Last Admin: 05/06/21 20:41 Dose: 20 mls/hr Documented by: Ceftriaxone Sodium 2 gm/ (Sodium Chloride) 50 mls @ 100 mls/hr IVPB Q24HR SUNG; Protocol Naloxone HCl (Naloxone 0.4 Mg/Ml 1 Ml Vial) 0.2 mg IV Q2M PRN PRN Reason: Opioid Reversal PHYSICAL EXAMINATION: GENERAL: The patient is alert and oriented x2, thin built, cachectic, ill-beto earing. HEENT: Pupils are round and equally reacting to light. EOMI. does have scleral icterus. No conjunctival pallor. Normocephalic, atraumatic. No pharyngeal erythema. No thyromegaly. CARDIOVASCULAR: S1 and S2 muffled PULMONARY: diminished breath sounds bilaterally with no wheezing or rhonchi noted. ABDOMEN: soft. Non-tender on exam. Thin built. non-distended, normoactive bowel sounds. No palpable organomegaly. MUSCULOSKELETAL: No joint swelling or deformity. EXTREMITIES: No cyanosis, clubbing, or pedal edema. NEUROLOGICAL: Gross neurological examination did not reveal any focal deficits. Diffuse weakness SKIN: No rashes. Assessment: Acute delirium Gait dysfunction Generalized weakness Hyponatremia Pancytopenia Small cell lung carcinoma, receiving chemotherapy treatments GI prophylaxis DVT prophylaxis Full code Plan: Recommend to continue with current medications and symptomatic treatment. Multiple medical consultations including neurology, nephrology, oncology have been consulted and pending. Patient sodium is 127 and will resume sodium chloride tabs and follow-up with repeat labs closely and await nephrology input. Patient also started on empiric IV ceftriaxone and cultures are pending. Patient to be evaluated by PT/OT therapy and will also consult case/social work for possible ECF. Patient was recently just discharged in physical therapy recommending subacute rehab although patient refused. This was discussed again with patient along with family at the bedside and will monitor closely and await physical therapy notes for possible ECF. Appropriate home medications resumed and recommend close monitoring. Due to multiple complex medical issues, p juan c is guarded. The impression and plan of care has been dictated by Keren Dickson, nurse practitioner as directed. MD Alpesh I have performed a history and examination and MDM of this patient, discussed the same with the dictator, and agree with the dictator's assessment and plan as written ,documented as a scribe. Based on total visit time, I have performed more than 50% of the visit. Total number of minutes spent on this visit, 30 minutes. Any additional findings or plans will be noted. Review of Systems ROS unobtainable: due to mental status Past Medical History Past Medical History: Cancer, Hypertension, Osteoarthritis (OA) Additional Past Medical History / Comment(s): HX OF POSITIVE TB SKIN TEST WITH TX (1996) History of Any Multi-Drug Resistant Organisms: None Reported Past Surgical History: Hernia Repair, Orthopedic Surgery Additional Past Surgical History / Comment(s): ANGEL CARPAL TUNNEL , ANGEL KNEE SURGERY, ANGEL CATARACT REM. Past Anesthesia/Blood Transfusion Reactions: No Reported Reaction Past Psychological History: No Psychological Hx Reported Additional Psychological History / Comment(s): Pt resides with his spouse. He is independent. Smoking Status: Former smoker Past Alcohol Use History: Occasional Additional Past Alcohol Use History / Comment(s): SMOKES 2 CIGARS DAILY. STARTED SMOKING AGE 14, QUIT CIGARETTES 1984. DRINKS 3-4 BEERS DAILY. Past Drug Use History: None Reported - Past Family History Father Family Medical History: Cancer Additional Family Medical History / Comment(s): COLON CANCER Brother(s) Family Medical History: Cancer Additional Family Medical History / Comment(s): BLADDER CANCER Medications and Allergies Home Medications Medication Instructions Recorded Confirmed Type Carboxymethylcellulose Sodium 1 drop BOTH EYES DAILY PRN 03/26/21 05/06/21 History [Refresh Tears] Leg Cramps 1 tab PO DAILY PRN 04/30/21 05/06/21 History OLANZapine [ZyPREXA] 2.5 mg PO DIRECTED 04/30/21 05/06/21 History Ondansetron [Zofran] 4 mg PO Q4H PRN 04/30/21 05/06/21 History Sodium Chloride Tab 1 gm PO DAILY 30 Days #30 tablet 05/04/21 05/06/21 Rx dexAMETHasone ORAL [Hexadrol] 1 mg PO DAILY 05/06/21 05/06/21 History Allergies Allergy/AdvReac Type Severity Reaction Status Date / Time No Known Allergies Allergy Verified 05/06/21 19:25 Physical Exam Vitals: Vital Signs Temp Pulse Pulse Resp BP BP Pulse Ox 05/07/21 11:13 99.1 F 92 18 125/73 95 05/07/21 04:20 99.1 F 94 18 149/77 94 L 05/06/21 23:35 98.2 F 98 18 145/78 95 05/06/21 22:55 99.3 F 95 15 131/77 95 05/06/21 21:52 64 18 103/54 96 05/06/21 20:59 72 18 134/77 96 05/06/21 19:35 95 18 133/73 97 05/06/21 18:19 94 18 121/69 95 05/06/21 17:54 99.0 F 102 H 20 113/58 97 Intake and Output 05/06/21 05/07/21 05/07/21 22:59 06:59 14:59 Output Total 125 200 Balance -125 -200 Output: Urine 125 200 Other: Voiding Method Incontinent Weight 56.245 kg 56.245 kg Results CBC & Chem 7: 05/07/21 05:43 05/07/21 05:43 Labs: Abnormal Lab Results - Last 24 Hours (Table) 05/06/21 05/06/21 05/06/21 Range/Units 18:19 19:37 23:03 WBC 1.3 L* (3.8-10.6) k/uL RBC 3.16 L (4.30-5.90) m/uL Hgb 10.0 L D (13.0-17.5) gm/dL Hct 28.8 L (39.0-53.0) % Plt Count 100 L D (150-450) k/uL Neutrophils # (Manual) 0.60 L (1.3-7.7) k/uL Lymphocytes # (Manual) 0.68 L (1.0-4.8) k/uL Sodium 126 L (137-145) mmol/L Chloride 95 L (98-107) mmol/L Carbon Dioxide (22-30) mmol/L BUN 23 H (9-20) mg/dL Creatinine 0.33 L (0.66-1.25) mg/dL Glucose 126 H (74-99) mg/dL Calcium 8.1 L (8.4-10.2) mg/dL Total Protein (6.3-8.2) g/dL Albumin (3.5-5.0) g/dL Urine Protein Trace H (Negative) 05/07/21 05/07/21 Range/Units 05:43 05:43 WBC 1.2 L* (3.8-10.6) k/uL RBC 3.36 L (4.30-5.90) m/uL Hgb 10.8 L (13.0-17.5) gm/dL Hct 30.6 L (39.0-53.0) % Plt Count 124 L (150-450) k/uL Neutrophils # (Manual) 0.44 L* (1.3-7.7) k/uL Lymphocytes # (Manual) 0.68 L (1.0-4.8) k/uL Sodium 127 L (137-145) mmol/L Chloride 94 L (98-107) mmol/L Carbon Dioxide 32 H (22-30) mmol/L BUN (9-20) mg/dL Creatinine 0.39 L (0.66-1.25) mg/dL Glucose (74-99) mg/dL Calcium 8.0 L (8.4-10.2) mg/dL Total Protein 5.6 L (6.3-8.2) g/dL Albumin 2.9 L (3.5-5.0) g/dL Urine Protein (Negative) Thrombosis Risk Factor Assmnt - Choose All That Apply Any of the Below Risk Factors Present?: Yes Each Factor Represents 1 point: Serious lung disease incl. pneumonia (< 1month) Other Risk Factors: Yes Each Risk Factor Represents 2 Points: Age 61-74 years, Malignancy Other congenital or acquired thrombophilia - If yes, enter type in comment: No Thrombosis Risk Factor Assessment Total Risk Factor Score: 5 Thrombosis Risk Factor Assessment Level: High Risk Assessment and Plan Time with Patient: Greater than 30
[2021-05-07] MEDS: SODIUM CHLORIDE TAB 1 GM TAB PO SCH (14:17)
[2021-05-07] MEDS: OLANZapine 2.5 MG TAB PO SCH (14:17)
[2021-05-07] MEDS: FOLIC ACID 1 MG TAB PO SCH (14:19)
[2021-05-07] MEDS: FILGRASTIM-SNDZ 300 MCG/0.5 ML SYRINGE SQ SCH (18:50)
--- NOTE | 2021-05-07 20:53 | P.CNNES ---
History of Present Illness Consult date: 05/07/21 Requesting physician: Pritesh Harding Reason for Consult: Delirium History of Present Illness: Patient is a 70-year-old male with history of metastatic lung cancer came to the hospital yesterday at 5:43 PM to have blood draw. He was noted to be confused therefore was referred to the ER. 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 After undergoing further testing and biopsy, patient was just given first session of chemotherapy on 04/28/2021, that was completed on 04/30/2021. 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 He had a seizure in the ER. He was placed in ICU for 3 days. Patient was discharged home on Monday05/04/2021 with sodium of 129. Vital signs on arrival blood pressure 113/58, pulse rate 102, temperature 99.0. Blood tests shows WBC 1.3 hemoglobin 10.0, platelets are 100. Sodium 126 potassium 4.7, BUN 23 creatinine 0.33. Hepatic panel is normal. UA negative. Patient's last B12 level was 571 on 03/29/2021 folate was low 3.8. TSH normal 2.06. CT head showed no acute intracranial abnormality. I personally reviewed CT of the head and appears normal to me as well. Patient's zamora virus was positive on 03/26/2021. Patient had an MRI of the brain with and without contrast on 03/27/2021, which revealed moderate atrophy, age-appropriate. No pathological enhancement throughout the brain parenchyma. No evidence of metastatic disease. Mild chronic ischemic white matter changes. I personally reviewed MRI of the brain and agree with the findings. Patient's home medications include Zofran, Zyprexa 2.5 mg dexamethasone 1 mg daily. Patient has smoked 1 pack per day since age 14. He quit smoking in December 2020 after he was diagnosed with lung cancer. Review of Systems Patient denies any problem with urine control, incontinence. He frequently gets constipated. He gets tired. He has significant weight loss of about 40 pounds in last 3 months. Denies any fever or chills. No double vision or loss of vision. Patient does have cough. Patient has phlegm. No abdominal pain. No nausea vomiting diarrhea. All other 14 point review systems are reviewed and noncontributory. Past Medical History Past Medical History: Cancer, Hypertension, Osteoarthritis (OA) Additional Past Medical History / Comment(s): HX OF POSITIVE TB SKIN TEST WITH TX (1996) History of Any Multi-Drug Resistant Organisms: None Reported Past Surgical History: Hernia Repair, Orthopedic Surgery Additional Past Surgical History / Comment(s): ANGEL CARPAL TUNNEL , ANGEL KNEE SURGERY, ANGEL CATARACT REM. Past Anesthesia/Blood Transfusion Reactions: No Reported Reaction Past Psychological History: No Psychological Hx Reported Additional Psychological History / Comment(s): Pt resides with his spouse. He is independent. Smoking Status: Former smoker Past Alcohol Use History: Occasional Additional Past Alcohol Use History / Comment(s): SMOKES 2 CIGARS DAILY. STARTED SMOKING AGE 14, QUIT CIGARETTES 1984. DRINKS 3-4 BEERS DAILY. Past Drug Use History: None Reported - Past Family History Father Family Medical History: Cancer Additional Family Medical History / Comment(s): COLON CANCER Brother(s) Family Medical History: Cancer Additional Family Medical History / Comment(s): BLADDER CANCER Medications and Allergies Home Medications Medication Instructions Recorded Confirmed Type Carboxymethylcellulose Sodium 1 drop BOTH EYES DAILY PRN 03/26/21 05/06/21 History [Refresh Tears] Leg Cramps 1 tab PO DAILY PRN 04/30/21 05/06/21 History OLANZapine [ZyPREXA] 2.5 mg PO DIRECTED 04/30/21 05/06/21 History Ondansetron [Zofran] 4 mg PO Q4H PRN 04/30/21 05/06/21 History Sodium Chloride Tab 1 gm PO DAILY 30 Days #30 tablet 05/04/21 05/06/21 Rx dexAMETHasone ORAL [Hexadrol] 1 mg PO DAILY 05/06/21 05/06/21 History Allergies Allergy/AdvReac Type Severity Reaction Status Date / Time No Known Allergies Allergy Verified 05/06/21 19:25 Physical Examination - Vital Signs Vital Signs: Vital Signs Temp Pulse Pulse Resp BP BP Pulse Ox 05/07/21 04:20 99.1 F 94 18 149/77 94 L 05/06/21 23:35 98.2 F 98 18 145/78 95 05/06/21 22:55 99.3 F 95 15 131/77 95 05/06/21 21:52 64 18 103/54 96 05/06/21 20:59 72 18 134/77 96 05/06/21 19:35 95 18 133/73 97 05/06/21 18:19 94 18 121/69 95 05/06/21 17:54 99.0 F 102 H 20 113/58 97 Intake and Output 05/06/21 05/07/21 05/07/21 22:59 06:59 14:59 Output Total 125 200 Balance -125 -200 Output: Urine 125 200 Other: Voiding Method Incontinent Weight 56.245 kg Patient is an elderly male, very pleasant who appears slightly short of breath. His coughing. Patient is alert awake, appears slightly delirious. Slightly shaky. Patient states it's the third month and the year is 22. He knows he is in [facility]. He knows name of the current president. He knows his date of off 1950. When I asked about age, he would continuo usly reply [birth year]/01/[birth year]. He knows name of the capital [facility], [place]. Speech and language functions are normal. No aphasia or dysarthria. He can name and repeat very well. Attention, concentration and fund of knowledge is limited. On cranial examination, pupils are equal, round and reacting to light, visual stewart are full on confrontation, extraocular muscles are intact with no nystagmus. Face is symmetric, tongue protrudes to the midline. Patient has some thrush. Palatal elevation and sensation normal, hearing and shoulder shrug normal, facial sensation normal. Shoulder shrug normal. On muscle strength testing, there is no pronator drift and the strength is normal in arms distally and proximally. In the lower extremities (right/left) hip flexion 4+/4+ adduction 5/5, abduction 5-/5-. Knee extension 5/5, ankle dorsiflexion 5/1, inversion 5/5, [place] 5/2 plantar flexion 5/4. Deep tendon reflexes are trace in the upper limbs, 2 in the lower limbs at knees and ankles and plantars are flat. Sensory to touch is equal with no neglect. Cerebellar function showed no ataxia for [id number] testing on the patient is slightly tremulous. Tone of muscles normal. Bulk is overall very decreased, particularly in the proximal upper and lower limbs. Gait not checked On general examination, there is no carotid bruit or murmur, S1-S2 audible. Abdomen is soft nontender. Chest is clear. No peripheral edema. He has mild clubbing of the fingers. Results - Laboratory Findings CBC and BMP: 05/07/21 05:43 05/07/21 05:43 Abnormal Lab Findings: Abnormal Labs 05/06/21 05/06/21 05/06/21 18:19 19:37 23:03 WBC 1.3 L* RBC 3.16 L Hgb 10.0 L D Hct 28.8 L Plt Count 100 L D Neutrophils # (Manual) 0.60 L Lymphocytes # (Manual) 0.68 L Sodium 126 L Chloride 95 L Carbon Dioxide BUN 23 H Creatinine 0.33 L Glucose 126 H Calcium 8.1 L Total Protein Albumin Urine Protein Trace H 05/07/21 05/07/21 05:43 05:43 WBC 1.2 L* RBC 3.36 L Hgb 10.8 L Hct 30.6 L Plt Count 124 L Neutrophils # (Manual) 0.44 L* Lymphocytes # (Manual) 0.68 L Sodium 127 L Chloride 94 L Carbon Dioxide 32 H BUN Creatinine 0.39 L Glucose Calcium 8.0 L Total Protein 5.6 L Albumin 2.9 L Urine Protein Assessment and Plan Assessment: * Altered mental status, probably delirium. Cause is multifactorial as mentioned below. * Patient has recently received chemotherapy on 04/28/2021 to 04/30/2021, perhaps possibly a side effect of it. * Persistent hyponatremia of 126. Today is 127. * Pancytopenia with anemia and leukopenia * Possible thrush over the tongue. * Metastatic small cell lung cancer * Left foot drop, unclear cause. Patient denies habitual sitting with legs crossed. * Tobacco use Plan: * Patient undergoing MRI of the brain with and without contrast as recommended by the oncology. * We will also check MRI of the lumbar spine with and without contrast to rule out metastasis to the spine. * Patient's delirium hopefully will improve gradually, as his metabolic parameters improve, and gets over the side effects of chemotherapy. * Supportive care. * Dr. Faith will cover neurology service over the weekend. * Discussed with Dr. Dias. * Thank you for the consult.
[2021-05-07] MEDS: SODIUM CHLORIDE 0.9% 1,000 ML IV SCH (21:01)
--- NOTE | 2021-05-07 21:30 | P.CONS ---
History of Present Illness - Reason for Consult Consult date: 05/07/21 Lung cancer Requesting physician: Keren Dickson - Chief Complaint Mental status - History of Present Illness Mr Cordon is a pleasant white male, initially seen in consult at [facility]. The patient had been in his usual state of health until about 12/17. He then started having issues with swelling and redness of his face and neck with occasional itching, as well as swelling and redness in his upper extremities right greater than left. He was treated with steroids for a possible hypersensitivity phenomenon and did notice marked improvement in his symptoms. However they would recur once steroids were discontinued. The patient was brought to the emergency room by his sister who is a retired radiation oncology nurse when he developed recurrence of symptoms recently. CTA of the chest showed congomerate mediastinal and hilar mass measuring about 10 cm with SVC obstruction with possible invasion of a right upper lobe pulmonary artery branch. the patient was started on IV Decadron with significant improvement in his symptoms. He had an MRI of the brain which was negative for evidence of malignancy. Chest x-ray had shown similar findings as the CT scan. The patient had biopsy of right supraclavicular node by interventional radiology and was discharged home. Unfortunately the biopsy showed necrotic malignancy which could not be further classified. The case was discussed with pulmonary medicine and the patient referred back to them. He had bronchoscopy with biopsy in 04/12/21 which confirmed small cell lung carcinoma on transbronchial biopsy as well as FNA and right upper lobe lavage and brushings. The patient then had a PET scan on 04/16/21, showing uptake in the supraclavicular, superior mediastinal, or tracheal subcarinal and right hilar adenopathy. Right upper lobe lung nodule, and soft tissue mass in the posterior costophrenic angle. Uptake was also noted in the abdomen and a soft tissue nodule at the level of the luiz hepatis and other mesenteric nodules on the transverse colon. There was also a lytic lesion with uptake in the left femoral head. The patient appeared to have extensive, stage IV disease. He was seen for his first office visit on 04/20/21. He had a history of smoking 1-1.5 packs a day since age 12 till 1984. Since then he had smoked cigars daily. He now presents to hospital for mental status changes, worsening weakness, and persistent and worsening hyponatremia. CT WO contrast negative. He is neutropenic with ANC 0.44. Brown cultures pending. Review of Systems ROS unobtainable: due to mental status All systems: negative Past Medical History Past Medical History: Cancer, Hypertension, Osteoarthritis (OA) Additional Past Medical History / Comment(s): HX OF POSITIVE TB SKIN TEST WITH TX (1996) History of Any Multi-Drug Resistant Organisms: None Reported Past Surgical History: Hernia Repair, Orthopedic Surgery Additional Past Surgical History / Comment(s): ANGEL CARPAL TUNNEL , ANGEL KNEE SURGERY, ANGEL CATARACT REM. Past Anesthesia/Blood Transfusion Reactions: No Reported Reaction Past Psychological History: No Psychological Hx Reported Additional Psychological History / Comment(s): Pt resides with his spouse. He is independent. Smoking Status: Former smoker Past Alcohol Use History: Occasional Additional Past Alcohol Use History / Comment(s): SMOKES 2 CIGARS DAILY. STARTED SMOKING AGE 14, QUIT CIGARETTES 1984. DRINKS 3-4 BEERS DAILY. Past Drug Use History: None Reported - Past Family History Father Family Medical History: Cancer Additional Family Medical History / Comment(s): COLON CANCER Brother(s) Family Medical History: Cancer Additional Family Medical History / Comment(s): BLADDER CANCER Medications and Allergies Home Medications Medication Instructions Recorded Confirmed Type Carboxymethylcellulose Sodium 1 drop BOTH EYES DAILY PRN 03/26/21 05/06/21 History [Refresh Tears] Leg Cramps 1 tab PO DAILY PRN 04/30/21 05/06/21 History OLANZapine [ZyPREXA] 2.5 mg PO DIRECTED 04/30/21 05/06/21 History Ondansetron [Zofran] 4 mg PO Q4H PRN 04/30/21 05/06/21 History Sodium Chloride Tab 1 gm PO DAILY 30 Days #30 tablet 05/04/21 05/06/21 Rx dexAMETHasone ORAL [Hexadrol] 1 mg PO DAILY 05/06/21 05/06/21 History Allergies Allergy/AdvReac Type Severity Reaction Status Date / Time No Known Allergies Allergy Verified 05/06/21 19:25 Physical Exam Vitals: Vital Signs Temp Pulse Pulse Resp BP BP Pulse Ox 05/07/21 11:13 99.1 F 92 18 125/73 95 05/07/21 04:20 99.1 F 94 18 149/77 94 L 05/06/21 23:35 98.2 F 98 18 145/78 95 05/06/21 22:55 99.3 F 95 15 131/77 95 05/06/21 21:52 64 18 103/54 96 05/06/21 20:59 72 18 134/77 96 05/06/21 19:35 95 18 133/73 97 05/06/21 18:19 94 18 121/69 95 05/06/21 17:54 99.0 F 102 H 20 113/58 97 Intake and Output 05/07/21 05/07/21 05/07/21 06:59 14:59 22:59 Output Total 200 Balance -200 Output: Urine 200 Other: Voiding Method Incontinent Weight 56.245 kg - Constitutional General appearance: cooperative, no acute distress - EENT Eyes: EOMI ENT: NA/AT - Neck Neck: normal ROM - Respiratory Respiratory: bilateral: diminished - Cardiovascular Rhythm: regularly irregular - Gastrointestinal General gastrointestinal: soft - Integumentary Integumentary: pale - Neurologic non foca; - Musculoskeletal Musculoskeletal: generalized weakness - Psychiatric Fatigued, lethargy awakens to stimuli Results CBC & Chem 7: 05/07/21 05:43 05/07/21 05:43 Labs: Abnormal Lab Results - Last 24 Hours (Table) 05/06/21 05/06/21 05/06/21 Range/Units 18:19 19:37 23:03 WBC 1.3 L* (3.8-10.6) k/uL RBC 3.16 L (4.30-5.90) m/uL Hgb 10.0 L D (13.0-17.5) gm/dL Hct 28.8 L (39.0-53.0) % Plt Count 100 L D (150-450) k/uL Neutrophils # (Manual) 0.60 L (1.3-7.7) k/uL Lymphocytes # (Manual) 0.68 L (1.0-4.8) k/uL Sodium 126 L (137-145) mmol/L Chloride 95 L (98-107) mmol/L Carbon Dioxide (22-30) mmol/L BUN 23 H (9-20) mg/dL Creatinine 0.33 L (0.66-1.25) mg/dL Glucose 126 H (74-99) mg/dL Calcium 8.1 L (8.4-10.2) mg/dL Total Protein (6.3-8.2) g/dL Albumin (3.5-5.0) g/dL Urine Protein Trace H (Negative) 05/07/21 05/07/21 Range/Units 05:43 05:43 WBC 1.2 L* (3.8-10.6) k/uL RBC 3.36 L (4.30-5.90) m/uL Hgb 10.8 L (13.0-17.5) gm/dL Hct 30.6 L (39.0-53.0) % Plt Count 124 L (150-450) k/uL Neutrophils # (Manual) 0.44 L* (1.3-7.7) k/uL Lymphocytes # (Manual) 0.68 L (1.0-4.8) k/uL Sodium 127 L (137-145) mmol/L Chloride 94 L (98-107) mmol/L Carbon Dioxide 32 H (22-30) mmol/L BUN (9-20) mg/dL Creatinine 0.39 L (0.66-1.25) mg/dL Glucose (74-99) mg/dL Calcium 8.0 L (8.4-10.2) mg/dL Total Protein 5.6 L (6.3-8.2) g/dL Albumin 2.9 L (3.5-5.0) g/dL Urine Protein (Negative) CT Scan - head: report reviewed Assessment and Plan (1) Acute delirium Narrative/Plan: Await MRI of the brain for mets and/or AE Current Visit: Yes Status: Acute Code(s): R41.0 - DISORIENTATION, UNSPECIFIED SNOMED Code(s): 0072592 (2) Pancytopenia Narrative/Plan: Secondary to chemotherapy Current Visit: Yes Status: Acute Code(s): D61.818 - OTHER PANCYTOPENIA SNOMED Code(s): 396383656 (3) Hyponatremia Current Visit: No Status: Acute Priority: High Code(s): E87.1 - HYPO- OSMOLALITY AND HYPONATREMIA SNOMED Code(s): 47072351 (4) Lung cancer Narrative/Plan: Status post cycle one of chemotherapy without neulasta Status post Carbo, PULP BEATER-16 and immune therapy Current Visit: No Status: Acute Code(s): C34.90 - MALIGNANT NEOPLASM OF UNSP PART OF UNSP BRONCHUS OR LUNG SNOMED Code(s): 462430732 (5) SIADH (syndrome of inappropriate ADH production) Narrative/Plan: Nephrology Current Visit: No Status: Acute Priority: High Code(s): E22.2 - SYNDROME OF INAPPROPRIATE SECRETION OF ANTIDIURETIC HORMONE SNOMED Code(s): 40769619 Plan: Doctor attests: I performed a history and physical examination of this patient, developed impression and plan of care, discussed with dictator. I agree with dictators note, documented as a scribe.
--- NOTE | 2021-05-07 22:05 | MR ---
EXAMINATION TYPE: MR brain wo/w con DATE OF EXAM: 05/07/2021 COMPARISON: MRI CT brain 05/06/2021rain 03/27/2021 HISTORY: Mental status changes, hx lung cancer. TECHNIQUE: Multiplanar, multisequence images of the brain and brainstem is performed without and with IV contras t, utilizing 5.5 mL intravenous Gadavist . FINDINGS: Exam is limited by motion. Diffusion weighted images demonstrate no evidence of a recent infarct or other diffusion abnormality. There is no extra-axial fluid collection or significant white matter signal abnormality. The ventr icular system and cisternal spaces are normal in size and appearance. Cerebral brain volume is approp riate for age with appropriate dilation of the ventricular system. Scattered hazy T2 white matter eduin nges are seen throughout the brain. Midline structures demonstrate normal morphology. The craniocervical junction appears within normal limits. Post contrast images demonstrate no abnormal enhancement. The dural venous sinuses appear pa tent. The visualized sinuses are clear. The lenses are not visualized in the globes. IMPRESSION: 1. No pathological enhancement throughout the brain parenchyma. No evidence of metastatic disease. 2. Similar atrophy and age related changes. 3. Mild chronic ischemic white matter changes secondary to chronic small vessel ischemic disease.. 4. No acute CVA.
[2021-05-07] MEDS ORDERED: ACETAMINOPHEN TAB 325 MG TAB PO PRN (22:32)
--- NOTE | 2021-05-08 07:00 | XR ---
EXAMINATION TYPE: XR chest 1V portable DATE OF EXAM: 05/08/2021 COMPARISON: 04/30/2021 HISTORY: Shortness of breath. TECHNIQUE: Single frontal view of the chest is obtained. FINDINGS: There is persistent opacity/mass in the right suprahilar region unchanged. There is a 2 cm nodular opacity in the right upper lobe which was seen previously. The left lung is clear. There is no pneumothorax or pleural effusion. Heart size is normal pulmonary vasculature is not congested. The osseous structures are intact. IMPRESSION: No change in the right suprahilar opacity/mass in right upper lobe 2 cm pulmonary nodule . The findings are suspicious for neoplasm. Chest CT might be useful for further evaluation.
[2021-05-08 07:31] LABS: HCT 29.6 % (39.0-53.0); HGB 10.4 gm/dL (13.0-17.5); MCH 31.9 pg (25.0-35.0); MCV 91.4 fL (80.0-100.0); Mean Platelet Volume 6.9; RBC 3.24 m/uL (4.30-5.90); RDW 15.6 % (11.5-15.5)
[2021-05-08 07:38] LABS: African American GFR (CKD) >90 (>60 ml/min/1.73 sqM); Anion Gap 2 mmol/L; Blood Urea Nitrogen 19 mg/dL (9-20); Calcium 7.8 mg/dL (8.4-10.2); Carbon Dioxide 30 mmol/L (22-30); Chloride 93 mmol/L (98-107); Glucose 103 mg/dL (74-99); Non-African American GFR(CKD) >90 (>60 ml/min/1.73 sqM); Potassium 3.3 mmol/L (3.5-5.1); Sodium 125 mmol/L (137-145)
[2021-05-08 07:42] LABS: WBC 1.2 k/uL (3.8-10.6)
[2021-05-08 08:52] LABS: Platelet Count 95 k/uL (150-450)
[2021-05-08] MEDS: OLANZapine 2.5 MG TAB PO SCH (09:19)
[2021-05-08] MEDS: SODIUM CHLORIDE TAB 1 GM TAB PO SCH (09:19)
[2021-05-08] MEDS: dexAMETHasone 2 MG TAB PO SCH (09:19)
[2021-05-08] MEDS: FOLIC ACID 1 MG TAB PO SCH (09:19)
[2021-05-08 10:17] LABS: Basophils # (M) 0.01 k/uL (0-0.2); Blast Cells # (M) 0.04 k/uL (0); Lymphocytes # (M) 0.82 k/uL (1.0-4.8); Monocytes # (M) 0.06 k/uL (0-1.0); Neutrophils % (M) 25 %; Nucleated Red Blood Cells 0 /100 WBC (0-0); Total Cells Counted 200
--- NOTE | 2021-05-08 13:16 | P.NPCON ---
History of Present Illness - Reason for Consult hyponatremia - History of Present Illness Patient is a 70-year-old male with history of small cell lung cancer diagnosed last month he had patient was recently discharged from the hospital after admission for severe hyponatremia. This was mostly SIADH and it improved with tolvaptan. Tolvaptan was not covered with his [facility] insurance and patient was discharged on sodium chloride tabs Serum sodium had been about 117-119 on his last admission and improved to 129 on discharge Patient is readmitted with mental status changes. sodium was 126 improved to 127 and now back down to 125. The pressure is not low Zap at patient has a temp of 100.7F urine osmolality was 408 on his last admission on 05/01/2021 Review of Systems Eduardo HPI Past Medical History Past Medical History: Cancer, Hypertension, Osteoarthritis (OA) Additional Past Medical History / Comment(s): HX OF POSITIVE TB SKIN TEST WITH TX (1996) History of Any Multi-Drug Resistant Organisms: None Reported Past Surgical History: Hernia Repair, Orthopedic Surgery Additional Past Surgical History / Comment(s): ANGEL CARPAL TUNNEL , ANGEL KNEE SURGERY, ANGEL CATARACT REM. Past Anesthesia/Blood Transfusion Reactions: No Reported Reaction Past Psychological History: No Psychological Hx Reported Additional Psychological History / Comment(s): Pt resides with his spouse. He is independent. Smoking Status: Former smoker Past Alcohol Use History: Occasional Additional Past Alcohol Use History / Comment(s): SMOKES 2 CIGARS DAILY. STARTED SMOKING AGE 14, QUIT CIGARETTES 1984. DRINKS 3-4 BEERS DAILY. Past Drug Use History: None Reported - Past Family History Father Family Medical History: Cancer Additional Family Medical History / Comment(s): COLON CANCER Brother(s) Family Medical History: Cancer Additional Family Medical History / Comment(s): BLADDER CANCER Medications and Allergies Home Medications Medication Instructions Recorded Confirmed Type Carboxymethylcellulose Sodium 1 drop BOTH EYES DAILY PRN 03/26/21 05/06/21 History [Refresh Tears] Leg Cramps 1 tab PO DAILY PRN 04/30/21 05/06/21 History OLANZapine [ZyPREXA] 2.5 mg PO DIRECTED 04/30/21 05/06/21 History Ondansetron [Zofran] 4 mg PO Q4H PRN 04/30/21 05/06/21 History Sodium Chloride Tab 1 gm PO DAILY 30 Days #30 tablet 05/04/21 05/06/21 Rx dexAMETHasone ORAL [Hexadrol] 1 mg PO DAILY 05/06/21 05/06/21 History Allergies Allergy/AdvReac Type Severity Reaction Status Date / Time No Known Allergies Allergy Verified 05/06/21 19:25 Physical Exam Vitals: Vital Signs Temp Pulse Resp BP Pulse Ox 05/08/21 12:03 100.7 F H 105 H 16 134/62 94 L 05/08/21 04:57 99.4 F 109 H 16 122/73 90 L 05/07/21 22:24 100.4 F H 05/07/21 20:00 102.6 F H 120 H 16 141/77 94 L Intake and Output 05/07/21 05/08/21 05/08/21 22:59 06:59 14:59 Other: Voiding Method Urinal Urinal Incontinent Incontinent # Voids 4 Patient is awake comfortable Confused Not in any acute distress Examination of the heart S1 and S2 Examination lungs bilateral breath sounds are heard Abdomen is soft nontender Examination lower extremities shows no edema Results - Lab Results Most recent lab results Calcium 7.8 mg/dL (8.4-10.2) L 05/08/21 06:58 Magnesium 1.8 mg/dL (1.6-2.3) 05/06/21 18:53 05/08/21 06:58 05/08/21 06:58 Assessment and Plan Assessment: 1. Hyponatremia secondary to SIADH, Will repeat tolvaptan 2. Small cell lung cancer recently diagnosed 3. Generalized debility 4. Fever him a no evidence of pyuria. Possible pneumonia Plan: Continue off of IV fluids Samsca 1 by mouth today Continue sodium chloride tabs and increased to twice a day Repeat urine osmolality Encourage increased oral intake Continue empiric antibiotics
[2021-05-08] MEDS ORDERED: VANCOMYCIN 1,000 MG in SODIUM CHLORIDE 0.9% 250 ML IVPB STA (17:07)
[2021-05-08] MEDS ORDERED: VANCOMYCIN IV PER PHARMACY 1 EACH MISC MISCELLANE PRN (17:07)
[2021-05-08] MEDS: FILGRASTIM-SNDZ 300 MCG/0.5 ML SYRINGE SQ SCH (18:06)
[2021-05-08] MEDS: CEFEPIME 2 GM in SODIUM CHLORIDE 0.9% 100 ML IVPB SCH (18:06)
--- NOTE | 2021-05-08 20:30 | PN ---
PROGRESS NOTE DATE OF SERVICE: 05/08/2021 This 70-year-old gentleman who was admitted with acute delirium and generalized weakness is being closely monitored. No chest pain. No palpitations. No fever. The patient remains to be confused. REVIEW OF SYSTEMS: Cardiovascular: No angina. Respiratory: As mentioned earlier. GI: As mentioned earlier. The medication list was reviewed and included Tylenol, Rocephin, Hexadrol as well as other medications. PHYSICAL EXAMINATION: Pulse is 105, blood pressure 130/60, respirations 16, temperature 100.7. NECK: No jugular venous distention. No lymph node enlargement. CARDIOVASCULAR: S1, S2, muffled. No S3, no S4, RESPIRATORY: Diminished breath sounds at the bases. A few scattered rhonchi. ABDOMEN: Soft, nontender. NERVOUS SYSTEM: Diffusely weak. LABS: WBC 1.2, hemoglobin 10.4, and procalcitonin 0.10. ASSESSMENT: 1. Acute delirium. 2. Fever, possible sepsis. 3. Hyponatremia. 4. Pancytopenia. 5. Small-cell lung carcinoma, receiving chemotherapy. RECOMMENDATIONS: Recommend to continue current medications, continue symptomatic treatment. We will initiate broad-spectrum IV antibiotics and continue to monitor. A brain MRI was done which showed rather chronic changes, no acute abnormality. Prognosis guarded. Further recommendations to follow. See orders for details. We will initiate cefepime and Vanco and obtain infectious disease evaluation also. . MMODL / IJN: [id number] /
[2021-05-08] MEDS: SODIUM CHLORIDE 0.9% 1,000 ML IV SCH (21:11)
--- NOTE | 2021-05-08 22:05 | CONS ---
CONSULTATION DATE OF SERVICE: May 08, 2021. CHIEF COMPLAINT: Altered mental status. HISTORY OF PRESENT ILLNESS: Champ seen today as a followup. He feels better and his mental status has improved. He denies any nausea or vomiting. He denies any melena, hematochezia, hematuria or hemoptysis. CURRENT MEDICATION: Reviewed in his electronic medical record. PHYSICAL EXAMINATION: He is alert, oriented x3. He does not appear to be in acute distress. His vital signs are: Temperature 98.1, he had a low-grade fever earlier today at 100.7, pulse is 105, respirations 16, blood pressure 138/62. HEENT: Normocephalic, atraumatic. NECK: Supple. HEART: Regular rate and rhythm. CHEST: Equal expansion bilaterally. LUNGS: Clear to auscultation. ABDOMEN: Soft. No tenderness. Extremities revealed no edema. MUSCULOSKELETAL: Moving all extremities appropriately. No percussion tenderness detected over spine, sternum. LABORATORY DATA: WBC are 1.2 with absolute neutrophil count of 0.3, hemoglobin 10.4, hematocrit 29.7, platelets are 95. Sodium 125, potassium 3.3, chloride is 93, BUN is 19, creatinine 0.4. IMPRESSION: 1. Acute delirium. Change in mental status. However, recent brain MRI was did not reveal any evidence of metastatic disease. This could be possibly related to neutropenic fever and sepsis. 2. Pancytopenia related to recent chemotherapy. The patient is significantly neutropenic with absolute neutrophil count of 300. 3. 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 4. Small cell lung carcinoma. 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 RECOMMENDATION: 1. The patient's overall mental status appears to be improving. 2. Preliminary cultures from blood cultures are so far negative. 3. Continue broad-spectrum antibiotics. 4. Continue G-CSF support. 5. Once neutrophils count recover and based on final culture results then further decision will be made in regard to changing antibiotics. Thank you very much for the consult. MMODL / IJN: [id number] /
[2021-05-08] MEDS: VANCOMYCIN 1,000 MG in SODIUM CHLORIDE 0.9% 250 ML IVPB SCH (23:55)
[2021-05-09] MEDS: CEFEPIME 2 GM in SODIUM CHLORIDE 0.9% 100 ML IVPB SCH ×3 (01:14→17:00)
[2021-05-09 07:36] LABS: African American GFR (CKD) >90 (>60 ml/min/1.73 sqM); Anion Gap 2 mmol/L; Blood Urea Nitrogen 18 mg/dL (9-20); Calcium 7.7 mg/dL (8.4-10.2); Carbon Dioxide 30 mmol/L (22-30); Chloride 97 mmol/L (98-107); Glucose 115 mg/dL (74-99); Non-African American GFR(CKD) >90 (>60 ml/min/1.73 sqM); Potassium 3.3 mmol/L (3.5-5.1); Sodium 129 mmol/L (137-145)
[2021-05-09] MEDS: VANCOMYCIN 1,000 MG in SODIUM CHLORIDE 0.9% 250 ML IVPB SCH ×2 (08:01→15:42)
[2021-05-09] MEDS: dexAMETHasone 2 MG TAB PO SCH (08:02)
[2021-05-09] MEDS: SODIUM CHLORIDE TAB 1 GM TAB PO SCH ×2 (08:02→20:08)
[2021-05-09] MEDS: OLANZapine 2.5 MG TAB PO SCH (08:02)
[2021-05-09] MEDS: FOLIC ACID 1 MG TAB PO SCH (08:03)
[2021-05-09] MEDS ORDERED: Potassium Replacement Protocol 1 EACH MISC MISCELLANE PRN (15:04)
[2021-05-09] MEDS: POTASSIUM CHLORIDE ER 20 MEQ TAB.ER PO SCH ×2 (15:41→17:00)
--- NOTE | 2021-05-09 16:08 | P.PN ---
Subjective Patient is seen for follow-up for hyponatremia which is secondary to SIADH. Patient responded well to Samsca. He has underlying small cell lung cancer diagnosed last month. No significant complaints today. Trying to increase oral intake Urine osmolality was 408 on last admission on 05/01/2021 Patient could not have Samsca as outpatient as it was not covered by his insurance Objective - Vital Signs Vital signs: Vital Signs Temp 98.6 F 05/09/21 12:40 Pulse 100 05/09/21 12:40 Resp 16 05/09/21 12:40 BP 121/69 05/09/21 12:40 Pulse Ox 93 L 05/09/21 15:03 Intake & Output 05/08/21 05/09/21 05/09/21 17:59 06:59 18:59 Intake Total Balance Intake: Intake, IV Titration Amount Cefepime 2 gm In Sodium Chloride 0.9% 100 ml @ 25 mls/hr IVPB Q8H [facility] Rx#: [id number] Vancomycin 1,000 mg In Sodium Chloride 0.9% 250 ml @ 125 mls/hr IVPB Q8HR [facility] Rx#:[id number] Other: Voiding Method Toilet Urinal Incontinent # Voids - Exam Awake, comfortable, no acute distress Examination of the heart S1 and S2 Examination lungs decreased breath sounds at the bases Abdomen is soft nontender Examination of lower extremities shows no significant edema PUNCHER exam grossly intact - Labs CBC & Chem 7: 05/08/21 06:58 05/09/21 07:03 Labs: Abnormal Lab Results - Last 24 Hours (Table) 05/09/21 Range/Units 07:03 Sodium 129 L (137-145) mmol/L Potassium 3.3 L (3.5-5.1) mmol/L Chloride 97 L (98-107) mmol/L Creatinine 0.41 L (0.66-1.25) mg/dL Glucose 115 H (74-99) mg/dL Calcium 7.7 L (8.4-10.2) mg/dL Microbiology - Last 24 Hours (Table) 05/07/21 11:33 Urine Culture - Final Urine,Voided 05/06/21 20:59 Blood Culture - Preliminary Blood No Growth after 48 hours 05/06/21 20:44 Blood Culture - Preliminary Blood No Growth after 48 hours Assessment and Plan Assessment: 1. Hyponatremia secondary to SIADH, Will repeat tolvaptan 2. Small cell lung cancer recently diagnosed 3. Generalized debility 4. Fever, no evidence of pyuria. Possible pneumonia Plan: Continue off of IV fluids Repeat Samsca 1 by mouth today Continue sodium chloride tabs and increased to twice a day Repeat urine osmolality Encourage increased oral intake Continue empiric antibiotics
[2021-05-09] MEDS ORDERED: TOLVAPTAN 15 MG 1/2 TABLET PO ONE (16:30)
[2021-05-09] MEDS: FILGRASTIM-SNDZ 300 MCG/0.5 ML SYRINGE SQ SCH (17:00)
--- NOTE | 2021-05-09 18:55 | PN ---
PROGRESS NOTE DATE OF SERVICE: 05/09/2021 This 70-year-old gentleman who was admitted with acute delirium also had fever. The patient is being closely monitored. No chest pain. No palpitations. PHYSICAL EXAMINATION: Pulse is 100, blood pressure 120/69, respirations 16. HEENT: Conjunctivae normal. NECK: No jugular venous distention. CARDIOVASCULAR: S1, S2 muffled. RESPIRATION: Breath sounds diminished at the bases. A few scattered rhonchi. ABDOMEN: Soft, nontender. NERVOUS SYSTEM: No focal deficit. LABS: WBC 1.2. Other labs are noted. ASSESSMENT: 1. Acute delirium. 2. Fever; possible sepsis. 3. Hyponatremia. 4. Pancytopenia. 5. Small-cell lung cancer; receiving chemotherapy. 6. Severe gait dysfunction. RECOMMENDATIONS AND DISCUSSION: I recommend to continue current medications, continue with the monitoring, symptomatic treatment. PT/OT evaluation. Continue the rest of the medications. Repeat labs. Continue the empiric antibiotics. MMODL / IJN: [id number] /
[2021-05-10] MEDS: VANCOMYCIN 1,000 MG in SODIUM CHLORIDE 0.9% 250 ML IVPB SCH ×3 (00:32→15:54)
[2021-05-10] MEDS: CEFEPIME 2 GM in SODIUM CHLORIDE 0.9% 100 ML IVPB SCH ×3 (02:27→18:12)
[2021-05-10] MEDS: SODIUM CHLORIDE 0.9% 1,000 ML IV SCH (02:28)
[2021-05-10] MEDS ORDERED: VANCOMYCIN TROUGH DUE 1 EACH MISC MISCELLANE ONE (07:00)
--- NOTE | 2021-05-10 07:23 | P.CONS ---
History of Present Illness - Reason for Consult Consult date: 05/09/21 Febrile neutropenia Requesting physician: iMke Collins - Chief Complaint Fever x 2 days - History of Present Illness Patient is a 70-year-old male with a past medical history significant for right upper lobe small cell carcinoma diagnosed on 04/12/2021 with further investigation did shows evidence of stage IV disease for the patient has been started on chemotherapy, patient presenting to the ER 3 days ago on 05/06/2021 for evaluation of acute delirium and he was recently admitted to the hospital for critical hyponatremia patient on presentation to the hospital was afebrile he did start spiking a fever of 102 F on 05/07/2021 and did have a fever 100.7 yesterday patient did have a blood culture drawn which is currently pending patient also have evidence of leukopenia and mild neutropenia kidney function has been normal urine was negative patient did have a chest x-ray no change in the right suprahilar opacity infectious disease was consulted for further management of antibiotic therapy patient did have MRI of the brain completed no evidence of metastatic disease and no acute CVA, patient did have my evaluation denies having any headache denies having any chest pain or shortness of breath occasional cough which is mild to moderate intensity occasional sputum no hemoptysis no abdominal pain no diarrhea Review of Systems Positive point has been mentioned in the HPI rest of the systems are negative Past Medical History Past Medical History: Cancer, Hypertension, Osteoarthritis (OA) Additional Past Medical History / Comment(s): HX OF POSITIVE TB SKIN TEST WITH TX (1996) History of Any Multi-Drug Resistant Organisms: None Reported Past Surgical History: Hernia Repair, Orthopedic Surgery Additional Past Surgical History / Comment(s): ANGEL CARPAL TUNNEL , ANGEL KNEE SURGERY, ANGEL CATARACT REM. Past Anesthesia/Blood Transfusion Reactions: No Reported Reaction Past Psychological History: No Psychological Hx Reported Additional Psychological History / Comment(s): Pt resides with his spouse. He is independent. Smoking Status: Former smoker Past Alcohol Use History: Occasional Additional Past Alcohol Use History / Comment(s): SMOKES 2 CIGARS DAILY. STARTED SMOKING AGE 14, QUIT CIGARETTES 1984. DRINKS 3-4 BEERS DAILY. Past Drug Use History: None Reported - Past Family History Father Family Medical History: Cancer Additional Family Medical History / Comment(s): COLON CANCER Brother(s) Family Medical History: Cancer Additional Family Medical History / Comment(s): BLADDER CANCER Medications and Allergies Home Medications Medication Instructions Recorded Confirmed Type Carboxymethylcellulose Sodium 1 drop BOTH EYES DAILY PRN 03/26/21 05/06/21 History [Refresh Tears] Leg Cramps 1 tab PO DAILY PRN 04/30/21 05/06/21 History OLANZapine [ZyPREXA] 2.5 mg PO DIRECTED 04/30/21 05/06/21 History Ondansetron [Zofran] 4 mg PO Q4H PRN 04/30/21 05/06/21 History Sodium Chloride Tab 1 gm PO DAILY 30 Days #30 tablet 05/04/21 05/06/21 Rx dexAMETHasone ORAL [Hexadrol] 1 mg PO DAILY 05/06/21 05/06/21 History Allergies Allergy/AdvReac Type Severity Reaction Status Date / Time No Known Allergies Allergy Verified 05/06/21 19:25 Physical Exam Vitals: Vital Signs Temp Pulse Resp BP BP Pulse Ox 05/09/21 09:01 99.9 F H 103 H 18 131/74 96 05/09/21 04:55 100 92 L 05/09/21 04:46 100 F H 105 H 22 131/71 81 L 05/08/21 20:10 98.3 F 94 20 107/65 92 L 05/08/21 16:52 98.1 F Intake and Output 05/08/21 05/09/21 05/09/21 21:59 06:59 14:59 Intake Total Balance Intake: Intake, IV Titration Amount Cefepime 2 gm In Sodium Chloride 0.9% 100 ml @ 25 mls/hr IVPB Q8H [facility] Rx#: [id number] Vancomycin 1,000 mg In Sodium Chloride 0.9% 250 ml @ 125 mls/hr IVPB Q8HR [facility] Rx#:[id number] Other: Voiding Method Toilet Urinal Incontinent # Voids GENERAL DESCRIPTION: An elderly male lying in bed, no distress. No tachypnea or accessory muscle of respiration use. HEENT: Shows Pallor , no scleral icterus. Oral mucous membrane is dry. No phar yngeal erythema or thrush NECK: Trachea central, no thyromegaly. LUNGS: Unlabored breathing. Clear to auscultation anteriorly. No wheeze or crackle. HEART: S1, S2, regular rate and rhythm. No loud murmur ABDOMEN: Soft, no tenderness , guarding or rigidity, no organomegaly EXTREMITIES: No edema of feet. SKIN: No rash, no masses palpable. NEUROLOGICAL: The patient is awake, alert, oriented x3, mood and affect normal. Results CBC & Chem 7: 05/08/21 06:58 05/09/21 07:03 Labs: Abnormal Lab Results - Last 24 Hours (Table) 05/09/21 Range/Units 07:03 Sodium 129 L (137-145) mmol/L Potassium 3.3 L (3.5-5.1) mmol/L Chloride 97 L (98-107) mmol/L Creatinine 0.41 L (0.66-1.25) mg/dL Glucose 115 H (74-99) mg/dL Calcium 7.7 L (8.4-10.2) mg/dL Microbiology - Last 24 Hours (Table) 05/07/21 11:33 Urine Culture - Final Urine,Voided 05/06/21 20:59 Blood Culture - Preliminary Blood No Growth after 48 hours 05/06/21 20:44 Blood Culture - Preliminary Blood No Growth after 48 hours Assessment and Plan (1) Fever Current Visit: Yes Status: Acute Code(s): R50.9 - FEVER, UNSPECIFIED SNOMED Code(s): 445088257 Plan: 1patient with a stage IV small cell cancer right upper lobe this patient has been started on chemotherapy presented to the hospital with some mental status changes and has developed a fever with a question of possible pneumonia as no other obvious focus of infection urine has been negative abdominal soft on clinical examination no evidence of any cellulitis or joint swelling. 2we will try to obtain a sputum for Gram stain and culture. 3continue with the vancomycin and cefepime We will follow on clinical condition and cultures to further adjust medication if needed Thank you for this consultation will follow this patient along with you Time with Patient: Greater than 30
[2021-05-10] MEDS: SODIUM CHLORIDE TAB 1 GM TAB PO SCH ×2 (08:01→20:07)
[2021-05-10] MEDS: dexAMETHasone 2 MG TAB PO SCH (08:07)
[2021-05-10] MEDS: FOLIC ACID 1 MG TAB PO SCH (08:07)
[2021-05-10] MEDS: OLANZapine 2.5 MG TAB PO SCH (08:08)
[2021-05-10 08:34] LABS: ALT 46 U/L (4-49); AST 48 U/L (17-59); African American GFR (CKD) >90 (>60 ml/min/1.73 sqM); Albumin 2.6 g/dL (3.5-5.0); Alkaline Phosphatase 96 U/L (38-126); Anion Gap 5 mmol/L; Blood Urea Nitrogen 16 mg/dL (9-20); Calcium 7.8 mg/dL (8.4-10.2); Carbon Dioxide 27 mmol/L (22-30); Chloride 99 mmol/L (98-107); Globulin 2.7 g/dL; Glucose 103 mg/dL (74-99); Magnesium 1.7 mg/dL (1.6-2.3); Non-African American GFR(CKD) >90 (>60 ml/min/1.73 sqM); Potassium 3.7 mmol/L (3.5-5.1); Sodium 131 mmol/L (137-145); Total Bilirubin 0.9 mg/dL (0.2-1.3); Total Protein 5.3 g/dL (6.3-8.2)
--- NOTE | 2021-05-10 11:15 | P.PN ---
Subjective Patient is seen in follow-up for hyponatremia. Sodium level improving. Oral intake fair. Denies excessive fluid intake. No vomiting or diarrhea. Vital signs are stable. General: Awake and alert. HEENT: Head exam is unremarkable. LUNGS: Breath sounds decreased. HEART: Rate and Rhythm are regular. ABDOMEN: Soft, no distention. EXTREMITITES: No edema. Objective - Vital Signs Vital signs: Vital Signs Temp 98.6 F 05/10/21 04:27 Pulse 105 H 05/10/21 04:27 Resp 16 05/10/21 04:27 BP 157/83 05/10/21 04:27 Pulse Ox 92 L 05/10/21 05:52 Intake & Output 05/09/21 05/10/21 05/10/21 18:59 06:59 18:59 Intake Total 590 Balance 590 Intake: Intake, IV Titration 590 Amount Cefepime 2 gm In Sodium 100 Chloride 0.9% 100 ml @ 25 mls/hr IVPB Q8H [facility] Rx#: [id number] Sodium Chloride 0.9% 1, 240 000 ml @ 20 mls/hr IV . Q24H [facility] Rx#:[id number] Vancomycin 1,000 mg In 250 Sodium Chloride 0.9% 250 ml @ 125 mls/hr IVPB Q8HR [facility] Rx#:[id number] Other: Voiding Method Toilet Urinal Urinal Urinal Diaper Diaper Incontinent Incontinent Incontinent # Voids 3 2 - Labs CBC & Chem 7: 05/08/21 06:58 05/10/21 07:18 Labs: Abnormal Lab Results - Last 24 Hours (Table) 05/10/21 Range/Units 07:18 Sodium 131 L (137-145) mmol/L Creatinine 0.40 L (0.66-1.25) mg/dL Glucose 103 H (74-99) mg/dL Calcium 7.8 L (8.4-10.2) mg/dL Total Protein 5.3 L (6.3-8.2) g/dL Albumin 2.6 L (3.5-5.0) g/dL Microbiology - Last 24 Hours (Table) 05/06/21 20:59 Blood Culture - Preliminary Blood No Growth after 72 hours 05/06/21 20:44 Blood Culture - Preliminary Blood No Growth after 72 hours 05/08/21 18:58 Blood Culture - Preliminary Blood No Growth after 24 hours 05/07/21 11:33 Urine Culture - Final Urine,Voided Assessment and Plan Plan: Assessment: 1. Hyponatremia secondary to SIADH. Status post. Sodium level 131 today. 2. Small cell lung cancer. 3. Generalized debility. 4. Hypokalemia from poor intake. Replaced. Improved. 5. Fever. Recently started on chemotherapy. Concern for pneumonia. ID following. On antibiotics. Plan: 1500 ml fluid restriction. Maintain salt tabs. Monitor blood pressure. Encourage protein intake. Add oral magnesium oxide.
--- NOTE | 2021-05-10 11:21 | MR ---
EXAMINATION TYPE: MR lumbar spine wo/w con DATE OF EXAM: 05/10/2021 COMPARISON: PET/CT 04/16/2021 HISTORY: Left foot drop, lung cancer, evaluate for spinal metastasis. TECHNIQUE: Multiplanar, multisequence images of the lumbar spine were acquired without and with 5.5 mL intraveno us Gadavist gadolinium contrast. L1-L2: Normal disc appearance without desiccation. No herniation, protrusion or disc bulging. No ca nal stenosis is present. Foramina are patent bilaterally. L2-L3: Normal disc appearance without desiccation. No herniation, protrusion or disc bulging. No ca nal stenosis is present. Foramina are patent bilaterally. There is facet arthropathy change. L3-L4: Posterior broad-based disc bulge causes anterior mass effect on the thecal sac. There is facet arthropathy with hypertrophy ligamentum flavum causing posterior lateral mass effect on the thecal s ac. Circumferential extension endplate disc complex encroaches upon the inferior aspect of the forami na. L4-L5: Posterior extension endplate disc complex causes anterior mass effect on the thecal sac. Facet arthropathy with hypertrophy ligamentum flavum causes posterior lateral mass effect on the thecal sa c greater on the left, some encroachment on the lateral recess is noted bilaterally. Circumferential extension of endplate disc complex encroaches upon the foramina left greater than right. L5-S1: There is facet arthropathy with hypertrophy ligamentum flavum. Circumferential extension endpl ate disc complex encroaches upon the inferior aspect of the foramen greater on the right. There is a minimal posterior disc bulge effacing the anterior thecal sac, possible contact with the proximal S1 nerve roots. Lumbar segments are intact. No paraspinal masses are identified. Conus medullaris has a normal appe arance. Lumbar vertebral bodies show preserved height and alignment. There is multilevel spondylosis. Endplate discogenic marrow signal changes are present, there is multilevel Schmorl's node formation. Loss of disc height and signal is greatest at L4-5 consistent with disc desiccation and degenerative disc disease. No significant spinal stenosis, punctate focus of enhancement following contrast admin istration noted sagittal image #36 series 901 is of questionable clinical significance, not seen in t he axial plane. IMPRESSION: Degenerative disc disease, facet arthropathy as described. Questionable focus of enhancement only see n on series 901 sagittal images may be vascular but is indeterminate.
[2021-05-10] MEDS: MAGNESIUM OXIDE 400 MG TAB PO SCH (12:12)
[2021-05-10 14:06] LABS: Basophils # (M) 0 X 10*3/uL (0.00-0.10); Eosinophils # (M) 0.03 X 10*3/uL (0.04-0.35); HGB 8.9 g/dL (13.0-17.0); Immature Platelet Fraction 5.6 % (1.1-6.1); Lymphocytes # (M) 1.68 X 10*3/uL (0.90-5.00); MCH 30.3 pg (27.0-32.0); MCV 91.8 fL (80.0-97.0); Mean Platelet Volume 10.3 fL (9.5-12.2); Metamyelocytes % 1 % (0-0); Monocytes # (M) 0.28 X 10*3/uL (0.20-1.00); Myelocytes % 3 % (0-0); NRBC Per 100 WBC 0.7 /100 WBCS (0.0-0.0); Neutrophils # (M) 0.66 X 10*3/uL (2.00-8.90); Neutrophils % (M) 24 %; Platelet Count 82 X 10*3/uL (140-440); RBC 2.94 X 10*6/uL (4.40-5.60); RDW 15.6 % (11.5-14.5); WBC 2.75 X 10*3/uL (4.50-10.00)
--- NOTE | 2021-05-10 15:51 | P.PN ---
Subjective Progress Note Date: 05/10/21 This is a pleasant 70-year-old male who was recently admitted with altered mental status and per the acute delirium. Patient was recently just discharged for severe hyponatremia. Patient was evaluated by physical therapy recommending subacute rehab although patient refused at that time and wanted to go home and Homecare was being arranged. Per patient continued to be confused and more altered and so was brought back to the hospital for further evaluation. Neurology and oncology been consulted and pending. Will also consult nephrology as patient sodium continues to be low and is currently 127. Patient does have an extensive past medical history of hypertension, osteoarthritis, EtOH abuse, and also small cell lung carcinoma and is currently receiving chemo immunotherapy treatments. Patient has been on high-dose steroids with a taper of Decadron per oncology services. Patient also recently had further workup with a bronchoscopy with biopsy in March that confirmed the small cell lung carcinoma and patient also underwent PET scan and findings were extensive stage IV disease. On admission to the ER labs were found to be a WBC of 1.3, hemoglobin 10.0, platelets were 100, sodium was 126, potassium 4.7, BUN 23, creatinine 0.33, magnesium 1.8, urinalysis is negative. Patient had a CT of the brain without contrast showing no evidence of intracranial hemorrhage mass effect or midline shift the white matter is grossly preserved and there is no acute intracranial abnormality noted. Patient was admitted for further evaluation and will also have PT/OT therapy evaluate the patient and will consult case management/social work manager to evaluate for ECF. Consultations currently pending. 05/10/2021 Patient is seen and evaluated in follow-up today currently sitting up in the chair. Patient being followed closely by nephrology. Patient continues with confusion at times and recommend PT/OT evaluation for possible ECF. Oncology also following along with neurology and LS-spine MRI is ordered and pending at this time. Patient continues with low-grade fevers and is maintained on IV antibiotics and will continue. Infectious disease was consulted and pending. Patient received a dose of Samsca yesterday and sodium improved at 131 today and recommend continue with fluid restrictions and will repeat labs. Review of systems: Constitutional: No reports of fatigue, fever, or chills Cardiovascular: No reports of chest pain or palpitations Respiratory: No reports of shortness of breath or cough GI: No reports of nausea, vomiting, or diarrhea : No reports of dysuria or retention Neurovascular: No reports of weakness or numbness All medications have been reviewed Active Medications Acetaminophen (Acetaminophen Tab 325 Mg Tab) 650 mg PO Q6HR PRN PRN Reason: Fever and/ or Pain Last Admin: 05/08/21 13:46 Dose: 650 mg Documented by: Artificial Tears (Artificial Tears-Hypromellose Drops 15 Ml Btl) 1 drops BOTH EYES DAILY PRN PRN Reason: DRY EYES Dexamethasone (Dexamethasone 2 Mg Tab) 1 mg PO DAILY [facility] Last Admin: 05/10/21 08:07 Dose: 1 mg Documented by: Filgrastim-Sndz (Filgrastim-Sndz 300 Mcg/0.5 Ml Syringe) 300 mcg SQ DAILY@1800 [facility] Last Admin: 05/09/21 17:00 Dose: 300 mcg Documented by: Folic Acid (Folic Acid 1 Mg Tab) 1 mg PO DAILY [facility] Last Admin: 05/10/21 08:07 Dose: 1 mg Documented by: Sodium Chloride (Saline 0.9%) 1,000 mls @ 20 mls/hr IV .Q24H [facility] Last Admin: 05/10/21 02:28 Dose: Not Given Documented by: Cefepime HCl 2 gm/ Sodium (Chloride) 100 mls @ 25 mls/hr IVPB Q8H [facility]; Protocol Last Admin: 05/10/21 11:11 Dose: 25 mls/hr Documented by: Vancomycin HCl 1,000 mg/ (Sodium Chloride) 250 mls @ 125 mls/hr IVPB Q8HR [facility]; Protocol Last Admin: 05/10/21 08:46 Dose: 125 mls/hr Documented by: Magnesium Oxide (Magnesium Oxide 400 Mg Tab) 400 mg PO DAILY [facility] Last Admin: 05/10/21 12:12 Dose: 400 mg Documented by: Miscellaneous Information (Potassium Replacement Protocol 1 Each Misc) 1 each MISCELLANE DAILY PRN; Protocol PRN Reason: Per Protocol Naloxone HCl (Naloxone 0.4 Mg/Ml 1 Ml Vial) 0.2 mg IV Q2M PRN PRN Reason: Opioid Reversal Olanzapine (Olanzapine 2.5 Mg Tab) 2.5 mg PO DAILY [facility] Stop: 05/21/21 23:00 Last Admin: 05/10/21 08:08 Dose: 2.5 mg Documented by: Ondansetron HCl (Ondansetron 4 Mg Tab) 4 mg PO Q4H PRN PRN Reason: Nausea Sodium Chloride (Sodium Chloride Tab 1 Gm Tab) 1 gm PO BID [facility] Last Admin: 05/10/21 08:01 Dose: 1 gm Documented by: PHYSICAL EXAMINATION: GENERAL: The patient is alert and awake, continues to be confused at times, thin built, cachectic, ill-appearing. HEENT: Pupils are round and equally reacting to light. EOMI. does have scleral icterus. No conjunctival pallor. Normocephalic, atraumatic. No pharyngeal eryth lucretia. No thyromegaly. CARDIOVASCULAR: S1 and S2 muffled PULMONARY: diminished breath sounds bilaterally with some scattered rhonchi noted. ABDOMEN: soft. Non-tender on exam. Thin built. non-distended, normoactive bowel sounds. No palpable organomegaly. MUSCULOSKELETAL: No joint swelling or deformity. EXTREMITIES: No cyanosis, clubbing, or pedal edema. NEUROLOGICAL: Gross neurological examination did not reveal any focal deficits. Diffuse weakness SKIN: No rashes. Assessment: Acute delirium Fever, possible sepsis, present on admission Severe Gait dysfunction Generalized weakness Hyponatremia Pancytopenia Small cell lung carcinoma, receiving chemotherapy treatments GI prophylaxis DVT prophylaxis Full code Plan: Recommend to continue with current medications and symptomatic treatment. Multiple medical consultations including neurology, nephrology, oncology following. Infectious disease consulted and pending. Patient is scheduled for MRI of the L-spine which is pending at this time. Patient did receive a dose of Samsca yesterday with nephrology following and sodium slightly improved at 131. Patient continued on empiric IV ceftriaxone and cultures thus far are negative. Patient to be evaluated by PT/OT therapy and also case/social work to follow for possible ECF. Patient was recently just discharged in physical therapy recommending subacute rehab although patient refused. This was discussed again with patient along with family at the bedside and will monitor closely and await physical therapy notes for possible ECF. Patient currently refusing rehab at t his time. Due to multiple complex medical issues, prognosis is guarded. The impression and plan of care has been dictated by Keren Dickson, nurse practitioner as directed. MD Alpesh I have performed a history and examination and MDM of this patient, discussed the same with the dictator, and agree with the dictator's assessment and plan as written ,documented as a scribe. Based on total visit time, I have performed more than 50% of the visit. Any additional findings or plans will be noted. Objective - Vital Signs Vital signs: Vital Signs Temp 98.6 F 05/10/21 04:27 Pulse 105 H 05/10/21 04:27 Resp 16 05/10/21 04:27 BP 157/83 05/10/21 04:27 Pulse Ox 92 L 05/10/21 05:52 Intake & Output 05/09/21 05/10/21 05/10/21 18:59 06:59 18:59 Intake Total 590 Balance 590 Intake: Intake, IV Titration 590 Amount Cefepime 2 gm In Sodium 100 Chloride 0.9% 100 ml @ 25 mls/hr IVPB Q8H [facility] Rx#: [id number] Sodium Chloride 0.9% 1, 240 000 ml @ 20 mls/hr IV . Q24H [facility] Rx#:[id number] Vancomycin 1,000 mg In 250 Sodium Chloride 0.9% 250 ml @ 125 mls/hr IVPB Q8HR [facility] Rx#:[id number] Other: Voiding Method Toilet Urinal Urinal Diaper Incontinent Incontinent # Voids 3 2 - Labs CBC & Chem 7: 05/10/21 07:18 05/10/21 07:18 Labs: Abnormal Lab Results - Last 24 Hours (Table) 05/10/21 Range/Units 07:18 Sodium 131 L (137-145) mmol/L Creatinine 0.40 L (0.66-1.25) mg/dL Glucose 103 H (74-99) mg/dL Calcium 7.8 L (8.4-10.2) mg/dL Total Protein 5.3 L (6.3-8.2) g/dL Albumin 2.6 L (3.5-5.0) g/dL Microbiology - Last 24 Hours (Table) 05/06/21 20:59 Blood Culture - Preliminary Blood No Growth after 72 hours 05/06/21 20:44 Blood Culture - Preliminary Blood No Growth after 72 hours 05/08/21 18:58 Blood Culture - Preliminary Blood No Growth after 24 hours 05/07/21 11:33 Urine Culture - Final Urine,Voided
--- NOTE | 2021-05-10 17:04 | P.PN ---
Subjective Progress Note Date: 05/10/21 Principal diagnosis: Acute delirium, SCLC In f/u today pt was able to answer all the cognitive questions appropriately, no acute c/o, denies pain. Objective - Vital Signs Vital signs: Vital Signs Temp 99.2 F 05/10/21 13:00 Pulse 101 H 05/10/21 13:00 Resp 17 05/10/21 13:00 BP 123/70 05/10/21 13:00 Pulse Ox 97 05/10/21 13:00 Intake & Output 05/09/21 05/10/21 05/10/21 18:59 06:59 18:59 Intake Total 590 Balance 590 Intake: Intake, IV Titration 590 Amount Cefepime 2 gm In Sodium 100 Chloride 0.9% 100 ml @ 25 mls/hr IVPB Q8H [facility] Rx#: [id number] Sodium Chloride 0.9% 1, 240 000 ml @ 20 mls/hr IV . Q24H [facility] Rx#:[id number] Vancomycin 1,000 mg In 250 Sodium Chloride 0.9% 250 ml @ 125 mls/hr IVPB Q8HR [facility] Rx#:[id number] Other: Voiding Method Toilet Urinal Urinal Urinal Diaper Diaper Incontinent Incontinent Incontinent # Voids 3 2 - Constitutional General appearance: Present: average body habitus, cooperative, no acute distress - EENT Eyes: Present: anicteric sclerae, EOMI ENT: Present: hearing grossly normal - Respiratory Details: resp even and unlabored at rest - Neurologic Neurologic Comment(s): left foot drop - Musculoskeletal Musculoskeletal: Present: generalized weakness - Psychiatric Psychiatric: Present: A&O x's 3, appropriate affect - Labs CBC & Chem 7: 05/10/21 07:18 05/10/21 07:18 Labs: Abnormal Lab Results - Last 24 Hours (Table) 05/08/21 05/10/21 05/10/21 Range/Units 06:58 07:18 07:18 WBC 2.75 L (4.50-10.00) X 10*3/uL RBC 2.94 L (4.40-5.60) X 10*6/uL Hgb 8.9 L (13.0-17.0) g/dL Hct 27.0 L (39.6-50.0) % RDW 15.6 H (11.5-14.5) % Plt Count 82 L (140-440) X 10*3/uL Plt Count Comment DECREASED A Absolute Nucleated RBC 0.02 H (0.00-0.00) X 10*3/uL Metamyelocytes % 1 H (0-0) % Myelocytes % 3 H (0-0) % Neutrophils # (Manual) 0.66 L (2.00-8.90) X 10*3/uL Eosinophils # (Manual) 0.03 L (0.04-0.35) X 10*3/uL NRBC/100 WBC Diff 0.7 H (0.0-0.0) /100 WBCS Pathologist Review See comment A Sodium 131 L (137-145) mmol/L Creatinine 0.40 L (0.66-1.25) mg/dL Glucose 103 H (74-99) mg/dL Calcium 7.8 L (8.4-10.2) mg/dL Total Protein 5.3 L (6.3-8.2) g/dL Albumin 2.6 L (3.5-5.0) g/dL Microbiology - Last 24 Hours (Table) 05/06/21 20:59 Blood Culture - Preliminary Blood No Growth after 72 hours 05/06/21 20:44 Blood Culture - Preliminary Blood No Growth after 72 hours 05/08/21 18:58 Blood Culture - Preliminary Blood No Growth after 24 hours 05/07/21 11:33 Urine Culture - Final Urine,Voided - Imaging and Cardiology L spine MRI report reviewed Assessment and Plan (1) Acute delirium Narrative/Plan: Pt seems slightly better today. CT, MRI both neg. Will cont to f/u with pt. If symptoms persist or neurologic symptoms cont/change may need to consider LP. Current Visit: Yes Status: Acute Priority: High Code(s): R41.0 - DISORIENTATION, UNSPECIFIED SNOMED Code(s): 4951016 (2) Pancytopenia Narrative/Plan: WBC 2.7, ANC 6oo, cont GCSF for now Hgb down to 8.9, no evidence to suggest acute bleeding. No transfusion today. Plt cont to drop, 82,000 today. No transfusion today CBC daily Current Visit: Yes Status: Acute Priority: Medium Code(s): D61.818 - OTHER PANCYTOPENIA SNOMED Code(s): 923338477 (3) SIADH (syndrome of inappropriate ADH production) Narrative/Plan: 2/2 small cell lung cancer. Na+ stable for pt Current Visit: No Status: Acute Priority: Medium Code(s): E22.2 - SYNDROME OF INAPPROPRIATE SECRETION OF ANTIDIURETIC HORMONE SNOMED Code(s): 69007654 (4) Small cell lung cancer Narrative/Plan: S/P 1st cycle of carbo/REVIEW APPRAISER/tecentriq. Due to see Dr. Dias in ofc tomorrow, will see inpt. Treatment is next week, will keep appt for now Current Visit: Yes Status: Acute Priority: High Code(s): C34.90 - MALIGNANT NEOPLASM OF UNSP PART OF UNSP BRONCHUS OR LUNG SNOMED Code(s): 220386526 Plan: attests: I have seen and examined pt, performed H&P, developed impression and plan of care, discussed with dictator. I agree with dictation, documented as a scribe.
[2021-05-10] MEDS: FILGRASTIM-SNDZ 300 MCG/0.5 ML SYRINGE SQ SCH (18:12)
--- NOTE | 2021-05-10 23:37 | P.PN ---
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 On today's evaluation that is 05/10/2021 the patient overall fever pattern has improved, the patient is feeling slightly better, breathing comfortably patient denies having any chest pain he did have a cough that big of any sputum no abdominal pain and no diarrhea Objective - Vital Signs Vital signs: Vital Signs Temp 99.2 F 05/10/21 13:00 Pulse 101 H 05/10/21 13:00 Resp 17 05/10/21 13:00 BP 123/70 05/10/21 13:00 Pulse Ox 97 05/10/21 13:00 Intake & Output 05/09/21 05/10/21 05/10/21 18:59 06:59 18:59 Intake Total 590 Balance 590 Intake: Intake, IV Titration 590 Amount Cefepime 2 gm In Sodium 100 Chloride 0.9% 100 ml @ 25 mls/hr IVPB Q8H [facility] Rx#: [id number] Sodium Chloride 0.9% 1, 240 000 ml @ 20 mls/hr IV . Q24H [facility] Rx#:[id number] Vancomycin 1,000 mg In 250 Sodium Chloride 0.9% 250 ml @ 125 mls/hr IVPB Q8HR [facility] Rx#:[id number] Other: Voiding Method Toilet Urinal Urinal Urinal Diaper Diaper Incontinent Incontinent Incontinent # Voids 3 2 - Exam GENERAL DESCRIPTION: An elderly male lying in bed in no distress RESPIRATORY SYSTEM: Unlabored breathing , decreased breath sounds at bases HEART: S1 S2 regular rate and rhythm , ABDOMEN: Soft , no tenderness EXTREMITIES: No edema feet - Labs CBC & Chem 7: 05/10/21 07:18 05/10/21 07:18 Labs: Abnormal Lab Results - Last 24 Hours (Table) 05/08/21 05/10/21 05/10/21 Range/Units 06:58 07:18 07:18 WBC 2.75 L (4.50-10.00) X 10*3/uL RBC 2.94 L (4.40-5.60) X 10*6/uL Hgb 8.9 L (13.0-17.0) g/dL Hct 27.0 L (39.6-50.0) % RDW 15.6 H (11.5-14.5) % Plt Count 82 L (140-440) X 10*3/uL Plt Count Comment DECREASED A Absolute Nucleated RBC 0.02 H (0.00-0.00) X 10*3/uL Metamyelocytes % 1 H (0-0) % Myelocytes % 3 H (0-0) % Neutrophils # (Manual) 0.66 L (2.00-8.90) X 10*3/uL Eosinophils # (Manual) 0.03 L (0.04-0.35) X 10*3/uL NRBC/100 WBC Diff 0.7 H (0.0-0.0) /100 WBCS Pathologist Review See comment A Sodium 131 L (137-145) mmol/L Creatinine 0.40 L (0.66-1.25) mg/dL Glucose 103 H (74-99) mg/dL Calcium 7.8 L (8.4-10.2) mg/dL Total Protein 5.3 L (6.3-8.2) g/dL Albumin 2.6 L (3.5-5.0) g/dL Microbiology - Last 24 Hours (Table) 05/06/21 20:59 Blood Culture - Preliminary Blood No Growth after 72 hours 05/06/21 20:44 Blood Culture - Preliminary Blood No Growth after 72 hours 05/08/21 18:58 Blood Culture - Preliminary Blood No Growth after 24 hours 05/07/21 11:33 Urine Culture - Final Urine,Voided Assessment and Plan (1) Fever Current Visit: Yes Status: Acute Code(s): R50.9 - FEVER, UNSPECIFIED SNOMED Code(s): 615433623 Plan: 1patient with a stage IV small cell cancer right upper lobe this patient has been started on chemotherapy presented to the hospital with some mental status changes and has developed a fever with a question of possible pneumonia as no other obvious focus of infection urine has been negative abdominal soft on clinical examination no evidence of any cellulitis or joint swelling. 2we will try to obtain a sputum for Gram stain and culture. 3patient to continue with the cefepime however discontinue vancomycin to decrease risk of nephrotoxicity Time with Patient: Less than 30
[2021-05-11] MEDS: CEFEPIME 2 GM in SODIUM CHLORIDE 0.9% 100 ML IVPB SCH ×3 (02:51→17:50)
[2021-05-11 09:18] LABS: African American GFR (CKD) 154.8 (60.0-200.0); Anion Gap 13.1 mmol/L (10.00-18.00); BUN/Creat Ratio 49.67 Ratio (12.00-20.00); Blood Urea Nitrogen 14.9 mg/dL (9.0-27.0); Calcium 8.1 mg/dL (8.7-10.3); Carbon Dioxide 24.9 mmol/L (20.0-27.5); Magnesium 1.8 mg/dL (1.5-2.4); Non-African American GFR(CKD) 133.6 (60.0-200.0); Potassium 3.2 mmol/L (3.5-5.5)
[2021-05-11] MEDS: SODIUM CHLORIDE TAB 1 GM TAB PO SCH ×2 (09:41→20:06)
[2021-05-11] MEDS: FOLIC ACID 1 MG TAB PO SCH (09:41)
[2021-05-11] MEDS: dexAMETHasone 2 MG TAB PO SCH (09:41)
[2021-05-11] MEDS: MAGNESIUM OXIDE 400 MG TAB PO SCH (09:42)
[2021-05-11] MEDS: OLANZapine 2.5 MG TAB PO SCH (09:42)
[2021-05-11] MEDS: SODIUM CHLORIDE 0.9% 1,000 ML IV SCH ×2 (09:50→20:07)
[2021-05-11] MEDS ORDERED: Potassium Replacement Protocol 1 EACH MISC MISCELLANE PRN (09:56)
--- NOTE | 2021-05-11 10:19 | P.PN ---
Subjective Patient is seen in follow-up for hyponatremia. Sodium level improving. Oral intake fair. Denies excessive fluid intake. No vomiting or diarrhea. Hemodynamically stable. No changes overnight. Vital signs are stable. General: Awake and alert. HEENT: Head exam is unremarkable. LUNGS: Breath sounds decreased. HEART: Rate and Rhythm are regular. ABDOMEN: Soft, no distention. EXTREMITITES: No edema. Objective - Vital Signs Vital signs: Vital Signs Temp 98.3 F 05/11/21 04:41 Pulse 95 05/11/21 04:41 Resp 18 05/11/21 04:41 BP 154/78 05/11/21 04:41 Pulse Ox 92 L 05/11/21 04:41 Intake & Output 05/10/21 05/11/21 05/11/21 18:59 06:59 18:59 Intake Total 250 Output Total 300 Balance -50 Intake: Intake, IV Titration 100 Amount Cefepime 2 gm In Sodium 100 Chloride 0.9% 100 ml @ 25 mls/hr IVPB Q8H [facility] Rx#: [id number] Oral 150 Output: Urine 300 Other: Voiding Method Urinal Urinal Diaper Diaper Incontinent Incontinent # Voids 2 3 - Labs CBC & Chem 7: 05/10/21 07:18 05/11/21 05:55 Labs: Abnormal Lab Results - Last 24 Hours (Table) 05/08/21 05/10/21 05/11/21 Range/Units 06:58 07:18 05:55 WBC 2.75 L (4.50-10.00) X 10*3/uL RBC 2.94 L (4.40-5.60) X 10*6/uL Hgb 8.9 L (13.0-17.0) g/dL Hct 27.0 L (39.6-50.0) % RDW 15.6 H (11.5-14.5) % Plt Count 82 L (140-440) X 10*3/uL Plt Count Comment DECREASED A Absolute Nucleated RBC 0.02 H (0.00-0.00) X 10*3/uL Metamyelocytes % 1 H (0-0) % Myelocytes % 3 H (0-0) % Neutrophils # (Manual) 0.66 L (2.00-8.90) X 10*3/uL Eosinophils # (Manual) 0.03 L (0.04-0.35) X 10*3/uL NRBC/100 WBC Diff 0.7 H (0.0-0.0) /100 WBCS Pathologist Review See comment A Sodium 133 L (135-145) mmol/L Potassium 3.2 L (3.5-5.5) mmol/L Chloride 95 L (96-109) mmol/L Creatinine 0.3 L (0.6-1.5) mg/dL BUN/Creatinine Ratio 49.67 H (12.00-20.00) Ratio Calcium 8.1 L (8.7-10.3) mg/dL Microbiology - Last 24 Hours (Table) 05/06/21 20:59 Blood Culture - Preliminary Blood No Growth after 96 hours 05/06/21 20:44 Blood Culture - Preliminary Blood No Growth after 96 hours 05/08/21 18:58 Blood Culture - Preliminary Blood No Growth after 48 hours Assessment and Plan Plan: Assessment: 1. Hyponatremia secondary to SIADH. Status post. Sodium level 133 today. 2. Small cell lung cancer. 3. Generalized debility. 4. Hypokalemia from poor intake. 5. Fever. Recently started on chemotherapy. Concern for pneumonia. ID following. On antibiotics. 6. Mild hypomagnesemia from poor intake. On oral magnesium oxide. Plan: 1500 ml fluid restriction. Maintain salt tabs. Monitor blood pressure. Encourage protein intake. Replace potassium.
[2021-05-11 11:38] LABS: HCT 24.9 % (39.6-50.0); HGB 8.5 g/dL (13.0-17.0); MCH 30.2 pg (27.0-32.0); MCHC 34.1 g/dL (32.0-37.0); MCV 88.6 fL (80.0-97.0); Mean Platelet Volume 10.4 fL (9.5-12.2); Platelet Count 95 X 10*3/uL (140-440); RBC 2.81 X 10*6/uL (4.40-5.60); RDW 15.6 % (11.5-14.5); WBC 7.64 X 10*3/uL (4.50-10.00)
[2021-05-11 11:43] LABS: Basophils # (M) 0 X 10*3/uL (0.00-0.10); Eosinophils # (M) 0 X 10*3/uL (0.04-0.35); Metamyelocytes % 6 % (0-0); Monocytes # (M) 0.46 X 10*3/uL (0.20-1.00); Myelocytes % 9 % (0-0); Neutrophils # (M) 3.21 X 10*3/uL (2.00-8.90); Neutrophils % (M) 42 %
[2021-05-11] MEDS: POTASSIUM CHLORIDE ER 20 MEQ TAB.ER PO SCH ×2 (14:31→14:33)
--- NOTE | 2021-05-11 14:53 | P.PN ---
Subjective Progress Note Date: 05/11/21 This is a pleasant 70-year-old male who was recently admitted with altered mental status and per the acute delirium. Patient was recently just discharged for severe hyponatremia. Patient was evaluated by physical therapy recommending subacute rehab although patient refused at that time and wanted to go home and Homecare was being arranged. Per patient continued to be confused and more altered and so was brought back to the hospital for further evaluation. Neurology and oncology been consulted and pending. Will also consult nephrology as patient sodium continues to be low and is currently 127. Patient does have an extensive past medical history of hypertension, osteoarthritis, EtOH abuse, and also small cell lung carcinoma and is currently receiving chemo immunotherapy treatments. Patient has been on high-dose steroids with a taper of Decadron per oncology services. Patient also recently had further workup with a bronchoscopy with biopsy in March that confirmed the small cell lung carcinoma and patient also underwent PET scan and findings were extensive stage IV disease. On admission to the ER labs were found to be a WBC of 1.3, hemoglobin 10.0, platelets were 100, sodium was 126, potassium 4.7, BUN 23, creatinine 0.33, magnesium 1.8, urinalysis is negative. Patient had a CT of the brain without contrast showing no evidence of intracranial hemorrhage mass effect or midline shift the white matter is grossly preserved and there is no acute intracranial abnormality noted. Patient was admitted for further evaluation and will also have PT/OT therapy evaluate the patient and will consult case management/social scientist to evaluate for ECF. Consultations currently pending. 05/10/2021 Patient is seen and evaluated in follow-up today currently sitting up in the chair. Patient being followed closely by nephrology. Patient continues with confusion at times and recommend PT/OT evaluation for possible ECF. Oncology also following along with neurology and LS-spine MRI is ordered and pending at this time. Patient continues with low-grade fevers and is maintained on IV antibiotics and will continue. Infectious disease was consulted and pending. Patient received a dose of Samsca yesterday and sodium improved at 131 today and recommend continue with fluid restrictions and will repeat labs. 05/11/2021 Patient is seen in follow-up today no acute overnight issues noted. Multiple medical consultations including nephrology, oncology, neurology following. Infectious disease also following and patient is maintained on IV cefepime and vancomycin has been discontinued. Patient had been having low-grade temps with a T-max of 102.6 and is currently afebrile for the last 24 hours now. Sputum culture along with influenza and RSV testing currently pending. This was discussed with nursing staff and the cultures will be obtained. Patient underwent MRI of the LS spine and degenerative disc disease with facet arthropathy noted and also there were 2 nonspecific enhancing lumbosacral nerves that are negative and there is no suspicious clumping or nodular enhancement images suggest neoplastic involvement in the lumbosacral spine canal. Neurology following recommending outpatient follow-up with further EMG testing and studies is necessary. Sodium improved at 133 today and potassium found to be low at 3.2 and will replace magnesium is 1.8 today. Patient requiring 4 L of oxygen and states he does not wear oxygen in the outpatient setting and will consult pulmonary which is pending at this time. Patient denies chest pain or shortness of breath. Patient reported that he was told his oxygen saturation is low and placed on oxygen. Review of systems: Constitutional: No reports of fatigue, fever, or chills Cardiovascular: No reports of chest pain or palpitations Respiratory: No reports of shortness of breath or cough GI: No reports of nausea, vomiting, or diarrhea : No reports of dysuria or retention Neurovascular: No reports of weakness or numbness All medications have been reviewed Active Medications Acetaminophen (Acetaminophen Tab 325 Mg Tab) 650 mg PO Q6HR PRN PRN Reason: Fever and/ or Pain Last Admin: 05/08/21 13:46 Dose: 650 mg Documented by: Artificial Tears (Artificial Tears-Hypromellose Drops 15 Ml Btl) 1 drops BOTH EYES DAILY PRN PRN Reason: DRY EYES Dexamethasone (Dexamethasone 2 Mg Tab) 1 mg PO DAILY [facility] Last Admin: 05/11/21 09:41 Dose: 1 mg Documented by: Filgrastim-Sndz (Filgrastim-Sndz 300 Mcg/0.5 Ml Syringe) 300 mcg SQ DAILY@1800 [facility] Last Admin: 05/10/21 18:12 Dose: 300 mcg Documented by: Folic Acid (Folic Acid 1 Mg Tab) 1 mg PO DAILY [facility] Last Admin: 05/11/21 09:41 Dose: 1 mg Documented by: Sodium Chloride (Saline 0.9%) 1,000 mls @ 20 mls/hr IV .Q24H [facility] Last Admin: 05/11/21 09:50 Dose: Not Given Documented by: Cefepime HCl 2 gm/ Sodium (Chloride) 100 mls @ 25 mls/hr IVPB Q8H [facility]; Protocol Last Admin: 05/11/21 09:40 Dose: 25 mls/hr Documented by: Magnesium Oxide (Magnesium Oxide 400 Mg Tab) 400 mg PO DAILY [facility] Last Admin: 05/11/21 09:42 Dose: 400 mg Documented by: Miscellaneous Information (Potassium Replacement Protocol 1 Each Misc) 1 each MISCELLANE DAILY PRN; Protocol PRN Reason: Per Protocol Miscellaneous Information (Potassium Replacement Protocol 1 Each Misc) 1 each MISCELLANE DAILY PRN; Protocol PRN Reason: Per Protocol Naloxone HCl (Naloxone 0.4 Mg/Ml 1 Ml Vial) 0.2 mg IV Q2M PRN PRN Reason: Opioid Reversal Olanzapine (Olanzapine 2.5 Mg Tab) 2.5 mg PO DAILY [facility] Stop: 05/21/21 23:00 Last Admin: 05/11/21 09:42 Dose: 2.5 mg Documented by: Ondansetron HCl (Ondansetron 4 Mg Tab) 4 mg PO Q4H PRN PRN Reason: Nausea Sodium Chloride (Sodium Chloride Tab 1 Gm Tab) 1 gm PO BID [facility] Last Admin: 05/11/21 09:41 Dose: 1 gm Documented by: PHYSICAL EXAMINATION: GENERAL: The patient is alert and awake, continues to be confused at times, thin built, cachectic, ill-appearing. HEENT: Pupils are round and equally reacting to light. EOMI. does have scleral icterus. No conjunctival pallor. Normocephalic, atraumatic. No pharyngeal erythema. No thyromegaly. CARDIOVASCULAR: S1 and S2 muffled PULMONARY: diminished breath sounds bilaterally with some scattered rhonchi noted. ABDOMEN: soft. Non-tender on exam. Thin built. non-distended, normoactive bowel sounds. No palpable organomegaly. MUSCULOSKELETAL: No joint swelling or deformity. EXTREMITIES: No cyanosis, clubbing, or pedal edema. NEUROLOGICAL: Gross neurological examination did not reveal any focal deficits. Diffuse weakness SKIN: No rashes. Assessment: Acute delirium Fever, possible sepsis, present on admission Acute hypoxic respiratory failure possibly secondary to stage IV lung carcinoma, requiring 4 L of oxygen Severe Gait dysfunction Generalized weakness Hyponatremia Pancytopenia Small cell lung carcinoma, receiving chemotherapy treatments GI prophylaxis DVT prophylaxis Full code Plan: Recommend to continue with current medications and symptomatic treatment. Multiple medical consultations including neurology, nephrology, oncology following. Infectious disease following as well. Patient is maintained on IV cefepime and vancomycin being discontinued. Patient has been evaluated by neurology recommending outpatient follow-up with further studies. Oncology also following his patient is actively receiving treatment for small cell lung carcinoma and does not wear oxygen in the outpatient setting although requiring 4 L. Will order d-dimer and consult pulmonary is currently pending at this time. Heparin subcutaneous for DVT prophylaxis and will monitor platelets closely as patient does have history of pancytopenia. Current platelet count is 95. Patient to be evaluated by PT/OT therapy and also case/social work to follow for possible ECF. Patient currently refusing rehab at this time. Due to multiple complex medical issues, prognosis is guarded. The impression and plan of care has been dictated by Keren Dickson, nurse practitioner as directed. MD Tasneem I have performed a history and examination and MDM of this patient, discussed the same with the dictator, and agree with the dictator's assessment and plan as written ,documented as a scribe. Based on total visit time, I have performed more than 50% of the visit. Any additional findings or plans will be noted. Objective - Vital Signs Vital signs: Vital Signs Temp 98.3 F 05/11/21 04:41 Pulse 95 05/11/21 04:41 Resp 18 05/11/21 04:41 BP 154/78 05/11/21 04:41 Pulse Ox 92 L 05/11/21 04:41 Intake & Output 05/10/21 05/11/21 05/11/21 18:59 06:59 18:59 Intake Total 250 Output Total 300 Balance -50 Intake: Intake, IV Titration 100 Amount Cefepime 2 gm In Sodium 100 Chloride 0.9% 100 ml @ 25 mls/hr IVPB Q8H [facility] Rx#: [id number] Oral 150 Output: Urine 300 Other: Voiding Method Urinal Urinal Diaper Diaper Incontinent Incontinent # Voids 2 3 - Labs CBC & Chem 7: 05/11/21 05:55 05/11/21 05:55 Labs: Abnormal Lab Results - Last 24 Hours (Table) 05/08/21 05/10/21 05/11/21 Range/Units 06:58 07:18 05:55 WBC 2.75 L (4.50-10.00) X 10*3/uL RBC 2.94 L (4.40-5.60) X 10*6/uL Hgb 8.9 L (13.0-17.0) g/dL Hct 27.0 L (39.6-50.0) % RDW 15.6 H (11.5-14.5) % Plt Count 82 L (140-440) X 10*3/uL Plt Count Comment DECREASED A Absolute Nucleated RBC 0.02 H (0.00-0.00) X 10*3/uL Metamyelocytes % 1 H (0-0) % Myelocytes % 3 H (0-0) % Neutrophils # (Manual) 0.66 L (2.00-8.90) X 10*3/uL Eosinophils # (Manual) 0.03 L (0.04-0.35) X 10*3/uL NRBC/100 WBC Diff 0.7 H (0.0-0.0) /100 WBCS Pathologist Review See comment A Sodium 133 L (135-145) mmol/L Potassium 3.2 L (3.5-5.5) mmol/L Chloride 95 L (96-109) mmol/L Creatinine 0.3 L (0.6-1.5) mg/dL BUN/Creatinine Ratio 49.67 H (12.00-20.00) Ratio Calcium 8.1 L (8.7-10.3) mg/dL Microbiology - Last 24 Hours (Table) 05/06/21 20:59 Blood Culture - Preliminary Blood No Growth after 96 hours 05/06/21 20:44 Blood Culture - Preliminary Blood No Growth after 96 hours 05/08/21 18:58 Blood Culture - Preliminary Blood No Growth after 48 hours
--- NOTE | 2021-05-11 15:04 | P.PN ---
Subjective Progress Note Date: 05/11/21 I am seeing the patient for the first time for neurological management. Pleaser refer to Dr. Bradford for further details. Patient stated he is doing well. Regarding his left foot drop he said it happened about 3 weeks ago. He denies of any neck pain. He denies of any headache, visual disturbance. It seems he is having some difficulty breathing. Patient had MRI Brain w/w/o: And it is reported as no pathological enhancement throughout the brain parenchyma. No evidence of metastatic disease. Similar atrophy and the age-related changes. Mild chronic ischemic white matter changes secondary due to chronic small vessel ischemic disease. No acute CVA. MRI the lumbar spine with and without is reported as degenerative disc disease, facet arthroplasty. Questionable focus of enhancement only seen on series 901 sagittal image may be vascular but is indeterminant. I had Dr. Ruiz to review the image and he put an addendum stating that the area of enhancement appears to correspond of nonspecific enhancing lumbosacral nerve negative. No suspicious clumping or nodular enhancement to suggest neoplastic involvement in the lumbosacral spinal canal. He felt that initial questionable enhancement is nonspecific Objective - Vital Signs Vital signs: Vital Signs Temp 98.4 F 05/11/21 11:19 Pulse 111 H 05/11/21 11:19 Resp 18 05/11/21 11:19 BP 148/75 05/11/21 11:19 Pulse Ox 91 L 05/11/21 11:19 Intake & Output 05/10/21 05/11/21 05/11/21 18:59 06:59 18:59 Intake Total 250 Output Total 300 Balance -50 Intake: Intake, IV Titration 100 Amount Cefepime 2 gm In Sodium 100 Chloride 0.9% 100 ml @ 25 mls/hr IVPB Q8H [facility] Rx#: [id number] Oral 150 Output: Urine 300 Other: Voiding Method Urinal Urinal Urinal Diaper Diaper Diaper Incontinent Incontinent Incontinent # Voids 2 3 - Exam GENERAL: The patient is lying in bed and is not in acute distress. NEUROLOGICAL: Higher mental function: The patient is awake, alert, oriented to self, place and time. Patient is following commands but minimally slow in responding. No aphasia and no neglect. Cranial nerves: The pupils are round, equal and reactive to light and accommodation. Visual stewart are full to confrontation throughout. Extraocular movement is intact no nystagmus is noted. Facial sensation is normal to touch t hroughout. The facial strength is normal throughout. Tongue is midline and moved [id number] without any difficulty. No dysarthria is noted. Shoulder shrug is normal bilaterally. Motor: The strength is left upper extremity is 4+. Left ankle dorsiflexion is 1-2. Otherwise strength 5 over 5 throughout. Cerebellum: Normal finger to nose bilaterally. Sensation: Sensation is normal to touch throughout. Reflexes (right/left): 1+ throughout. - Labs CBC & Chem 7: 05/11/21 05:55 05/11/21 05:55 Labs: Abnormal Lab Results - Last 24 Hours (Table) 05/11/21 05/11/21 Range/Units 05:55 05:55 RBC 2.81 L (4.40-5.60) X 10*6/uL Hgb 8.5 L (13.0-17.0) g/dL Hct 24.9 L (39.6-50.0) % RDW 15.6 H (11.5-14.5) % Plt Count 95 L (140-440) X 10*3/uL Plt Count Comment DECREASED A Absolute Nucleated RBC 0.08 H (0.00-0.00) X 10*3/uL Metamyelocytes % 6 H (0-0) % Myelocytes % 9 H (0-0) % Blast Cells % 3 H* (0-0) % Eosinophils # (Manual) 0 L (0.04-0.35) X 10*3/uL NRBC/100 WBC Diff 1.0 H (0.0-0.0) /100 WBCS Sodium 133 L (135-145) mmol/L Potassium 3.2 L (3.5-5.5) mmol/L Chloride 95 L (96-109) mmol/L Creatinine 0.3 L (0.6-1.5) mg/dL BUN/Creatinine Ratio 49.67 H (12.00-20.00) Ratio Calcium 8.1 L (8.7-10.3) mg/dL Microbiology - Last 24 Hours (Table) 05/06/21 20:59 Blood Culture - Preliminary Blood No Growth after 96 hours 05/06/21 20:44 Blood Culture - Preliminary Blood No Growth after 96 hours 05/08/21 18:58 Blood Culture - Preliminary Blood No Growth after 48 hours Assessment and Plan Assessment: * Altered mental status, probably delirium. Cause is multifactorial as mentioned below---improved. * Patient has recently received chemotherapy on 04/28/2021 to 04/30/2021, perhaps possibly a side effect of it. * Persistent hyponatremia of 126. Today is 133. * Pancytopenia with anemia and leukopenia * Possible thrush over the tongue. * Metastatic small cell lung cancer * Left upper extremity weakness. Unknown exact cause. * Left foot drop, unclear cause. Patient denies habitual sitting with legs crossed. Patient denies of back pain. * Tobacco use Plan: Ordered MRI C-spine w/ and w/o. Ordered HbA1c. Patient had MRI Brain w/w/o: And it is reported as no pathological enhancement throughout the brain parenchyma. No evidence of metastatic disease. Similar atrophy and the age-related changes. Mild chronic ischemic white matter changes secondary due to chronic small vessel ischemic disease. No acute CVA. MRI the lumbar spine with and without is reported as degenerative disc disease, facet arthroplasty. Questionable focus of enhancement only seen on series 901 sagittal image may be vascular but is indeterminant. I had Dr. Ruiz (reading radiologist) to review the image and he put an addendum stating that the area of enhancement appears to correspond of nonspecific enhancing lumbosacral nerve negative. No suspicious clumping or nodular enhancement to suggest neoplastic involvement in the lumbosacral spinal canal. He felt that initial questionable enhancement is nonspecific Recommend EMG with nerve conduction study of left upper and lower extremity as an outpatient Recommend AFO for left foot. PT, OT are consulted Nephrology is on board ID is on board Pulmonary team is on board for hypoxia Oncology team is on board We'll defer the rest of the medical management to the primary team Upon discharge the patient needs to follow-up with a neurologist as outpatient within 1-2 weeks next Plan was discussed with the patient, his nurse and Primary team (N.P.). Barron Duarte M.D. Neuro-hospitalist Time with Patient: Less than 30
[2021-05-11 16:13] LABS: Influenza A Not Detected (Not Detectd); Influenza B Not Detected (Not Detectd)
--- NOTE | 2021-05-11 16:36 | P.CNPUL ---
History of Present Illness Consult date: 05/11/21 Reason for consult: dyspnea, hypoxemia History of present illness: This is a 68-year-old male patient is known to me. 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 I establish his diagnosis through bronchoscopy and endobronchial ultrasound with no fine-needle aspirate. The patient also was having issues with hyponatremia with a sodium was dropping consistent with underlying SIADH. He was in the hospital on 05/01/2021 after the had a sodium level 113 and the patient had a witnessed seizure. He was in the intensive care unit. CAT scan of the brain was completed and it showed no evidence of any CARDIAC REHAB NURSE metastases. His chest x-ray was still showing a right hilar mass and the patient was subjected to fluid restriction, hypertonic saline at patient was discharged home to be readmitted within 48 hours because of altered mentation. The patient was accordingly admitted again to the hospital. The patient was found to be febrile and the patient was treated for neutropenic fever. Noted the patient has already received a first session of systemic chemotherapy on 04/28/2021 and he completed that on 04/30/2021. MRI of the brain with and without contrast done on 03/27/2021 showed moderate atrophy. No evidence of any metastases. For now, the patient is on the oncology floor. He is being followed up by oncology, neurology and nephrology. The patient had a temperature of 102.6 and initially the patient was covered with a combination of antibiotics including cefepime and vancomycin. Subsequently, infectious disease discontinued the vancomycin and the patient is only on IV cefepime for now.. M RI of the lumbosacral spine showed degenerative disc disease and facet arthropathy and some nonspecific enhancing lumbosacral nerves that may be vascular but it is indeterminate. Note that the patient's fever has broken the patient has been afebrile over the past 24 hours. Nevertheless, he is slightly tachycardic. His white cell count during this current admission was as low as 1.2 and currently is up to 7.6. Hemoglobin is at 8.5. Platelet count is at 95. His d-dimer was at 19.6. BUN is at 14 with a creatinine of 0.3, and the sodium level of 133. The blood cultures been negative. The urine culture has been negative. The patient was given zarxio Review of Systems Constitutional: Reports fatigue, Reports fever, Reports poor appetite, Reports weakness, Reports weight loss Eyes: denies as per HPI, denies blurred vision, denies bulging eye, denies decreased vision, denies diplopia, denies discharge, denies dry eye, denies irritation, denies itching, denies pain, denies photophobia, denies loss of peripheral vision, denies loss of vision, denies tunnel vision/blind spots Ears: deny: decreased hearing, ear discharge, earache, tinnitus Ears, nose, mouth and throat: Reports as per HPI Breasts: absent: as per HPI, gynecomastia Cardiovascular: Reports decreased exercise tolerance, Reports dyspnea on exertion Respiratory: Reports dyspnea Gastrointestinal: Reports as per HPI Genitourinary: Reports as per HPI Musculoskeletal: Reports muscle weakness Musculoskeletal: absent: ankle pain, ankle stiffness, ankle swelling Integumentary: Reports as per HPI Neurological: Reports confusion, Reports gait dysfunction, Reports weakness Psychiatric: Reports as per HPI Endocrine: Reports as per HPI Hematologic/Lymphatic: Reports as per HPI Allergic/Immunologic: Reports as per HPI Past Medical History Past Medical History: Cancer, Hypertension, Osteoarthritis (OA) Additional Past Medical History / Comment(s): HX OF POSITIVE TB SKIN TEST WITH TX (1996) History of Any Multi-Drug Resistant Organisms: None Reported Past Surgical History: Hernia Repair, Orthopedic Surgery Additional Past Surgical History / Comment(s): ANGEL CARPAL TUNNEL , ANGLE KNEE SURGERY, ANGEL CATARACT REM. Past Anesthesia/Blood Transfusion Reactions: No Reported Reaction Past Psychological History: No Psychological Hx Reported Additional Psychological History / Comment(s): Pt resides with his spouse. He is independent. Smoking Status: Former smoker Past Alcohol Use History: Occasional Additional Past Alcohol Use History / Comment(s): SMOKES 2 CIGARS DAILY. STARTED SMOKING AGE 14, QUIT CIGARETTES 1984. DRINKS 3-4 BEERS DAILY. Past Drug Use History: None Reported - Past Family History Father Family Medical History: Cancer Additional Family Medical History / Comment(s): COLON CANCER Brother(s) Family Medical History: Cancer Additional Family Medical History / Comment(s): BLADDER CANCER Medications and Allergies Home Medications Medication Instructions Recorded Confirmed Type Carboxymethylcellulose Sodium 1 drop BOTH EYES DAILY PRN 03/26/21 05/06/21 History [Refresh Tears] Leg Cramps 1 tab PO DAILY PRN 04/30/21 05/06/21 History OLANZapine [ZyPREXA] 2.5 mg PO DIRECTED 04/30/21 05/06/21 History Ondansetron [Zofran] 4 mg PO Q4H PRN 04/30/21 05/06/21 History Sodium Chloride Tab 1 gm PO DAILY 30 Days #30 tablet 05/04/21 05/06/21 Rx dexAMETHasone ORAL [Hexadrol] 1 mg PO DAILY 05/06/21 05/06/21 History Allergies Allergy/AdvReac Type Severity Reaction Status Date / Time No Known Allergies Allergy Verified 05/06/21 19:25 Physical Exam Vitals: Vital Signs Temp Pulse Pulse Pulse Pulse Pulse Resp 05/11/21 14:28 115 H 122 H 123 H 117 H 05/11/21 11:19 98.4 F 111 H 18 05/11/21 04:41 98.3 F 95 18 05/10/21 19:59 98.7 F 100 18 BP Pulse Ox Pulse Ox Pulse Ox Pulse Ox Pulse Ox 05/11/21 14:28 89 L 86 L 85 L 82 L 05/11/21 11:19 148/75 91 L 05/11/21 04:41 154/78 92 L 05/10/21 19:59 109/78 94 L Intake and Output 05/11/21 05/11/21 05/11/21 06:59 14:59 22:59 Intake Total 250 Output Total 300 Balance -50 Intake: Intake, IV Titration 100 Amount Cefepime 2 gm In Sodium 100 Chloride 0.9% 100 ml @ 25 mls/hr IVPB Q8H [facility] Rx#: [id number] Oral 150 Output: Urine 300 Other: Voiding Method Urinal Diaper Incontinent # Voids 3 2 Weight 56.245 kg GENERAL EXAM: Alert, very pleasant, 70-year-old white male on 4 L of Oxymizer nasal cannula HEAD: Normocephalic/atraumatic. EYES: Normal reaction of pupils, equal size. Conjunctiva pink, sclera white. NOSE: Clear with pink turbinates. THROAT: No erythema or exudates. NECK: No masses, no JVD, no thyroid enlargement, no adenopathy. CHEST: No chest wall deformity. Symmetrical expansion. LUNGS: Equal air entry with no crackles, wheeze, rhonchi or dullness. CVS: Regular rate and rhythm, normal S1 and S2, no gallops, no murmurs, no rubs ABDOMEN: Soft, nontender. No hepatosplenomegaly, normal bowel sounds, no guarding or rigidity. EXTREMITIES: No clubbing, no edema, no cyanosis, 2+ pulses and upper and lower extremities. MUSCULOSKELETAL: Muscle strength and tone normal. SPINE: No scoliosis or deformity SKIN: No rashes CENTRAL NERVOUS SYSTEM: Alert and occasionally confused. No focal deficits, tone is normal in all 4 extremities. No neck stiffness PSYCHIATRIC: Alert and oriented -3. Appropriate affect. Intact judgment and insight. Results - Laboratory Findings CBC and BMP: 05/11/21 05:55 05/11/21 05:55 PT/INR, D-dimer D-Dimer 19.65 mg/L FEU (<0.60) H 05/11/21 14:45 Abnormal lab findings: Abnormal Labs 05/06/21 05/06/21 05/06/21 18:19 19:37 23:03 WBC 1.3 L* RBC 3.16 L Hgb 10.0 L D Hct 28.8 L RDW Plt Count 100 L D Plt Count Comment Absolute Nucleated RBC Metamyelocytes % Myelocytes % Blast Cells % Neutrophils # (Manual) 0.60 L Lymphocytes # (Manual) 0.68 L Eosinophils # (Manual) Blast Cells # (Man) NRBC/100 WBC Diff Pathologist Review D-Dimer Sodium 126 L Potassium Chloride 95 L Carbon Dioxide BUN 23 H Creatinine 0.33 L BUN/Creatinine Ratio Glucose 126 H Calcium 8.1 L Total Protein Albumin Procalcitonin Urine Protein Trace H 05/07/21 05/07/21 05/08/21 05:43 05:43 06:58 WBC 1.2 L* RBC 3.36 L Hgb 10.8 L Hct 30.6 L RDW Plt Count 124 L Plt Count Comment Absolute Nucleated RBC Metamyelocytes % Myelocytes % Blast Cells % Neutrophils # (Manual) 0.44 L* Lymphocytes # (Manual) 0.68 L Eosinophils # (Manual) Blast Cells # (Man) NRBC/100 WBC Diff Pathologist Review D-Dimer Sodium 127 L Potassium Chloride 94 L Carbon Dioxide 32 H BUN Creatinine 0.39 L BUN/Creatinine Ratio Glucose Calcium 8.0 L Total Protein 5.6 L Albumin 2.9 L Procalcitonin 0.19 H Urine Protein 05/08/21 05/08/21 05/09/21 06:58 06:58 07:03 WBC 1.2 L* RBC 3.24 L Hgb 10.4 L Hct 29.6 L RDW 15.6 H Plt Count 95 L Plt Count Comment Absolute Nucleated RBC Metamyelocytes % Myelocytes % Blast Cells % 3 H* Neutrophils # (Manual) 0.30 L* Lymphocytes # (Manual) 0.82 L Eosinophils # (Manual) Blast Cells # (Man) 0.04 H NRBC/100 WBC Diff Pathologist Review See comment A D-Dimer Sodium 125 L 129 L Potassium 3.3 L 3.3 L Chloride 93 L 97 L Carbon Dioxide BUN Creatinine 0.42 L 0.41 L BUN/Creatinine Ratio Glucose 103 H 115 H Calcium 7.8 L 7.7 L Total Protein Albumin Procalcitonin Urine Protein 05/10/21 05/10/21 05/11/21 07:18 07:18 05:55 WBC 2.75 L RBC 2.94 L Hgb 8.9 L Hct 27.0 L RDW 15.6 H Plt Count 82 L Plt Count Comment DECREASED A Absolute Nucleated RBC 0.02 H Metamyelocytes % 1 H Myelocytes % 3 H Blast Cells % Neutrophils # (Manual) 0.66 L Lymphocytes # (Manual) Eosinophils # (Manual) 0.03 L Blast Cells # (Man) NRBC/100 WBC Diff 0.7 H Pathologist Review D-Dimer Sodium 131 L 133 L Potassium 3.2 L Chloride 95 L Carbon Dioxide BUN Creatinine 0.40 L 0.3 L BUN/Creatinine Ratio 49.67 H Glucose 103 H Calcium 7.8 L 8.1 L Total Protein 5.3 L Albumin 2.6 L Procalcitonin Urine Protein 05/11/21 05/11/21 05:55 14:45 WBC RBC 2.81 L Hgb 8.5 L Hct 24.9 L RDW 15.6 H Plt Count 95 L Plt Count Comment DECREASED A Absolute Nucleated RBC 0.08 H Metamyelocytes % 6 H Myelocytes % 9 H Blast Cells % 3 H* Neutrophils # (Manual) Lymphocytes # (Manual) Eosinophils # (Manual) 0 L Blast Cells # (Man) NRBC/100 WBC Diff 1.0 H Pathologist Review D-Dimer 19.65 H Sodium Potassium Chloride Carbon Dioxide BUN Creatinine BUN/Creatinine Ratio Glucose Calcium Total Protein Albumin Procalcitonin Urine Protein - Diagnostic Findings Chest x-ray: image reviewed Assessment and Plan Plan: 1 small cell lung cancer, early SVC syndrome, status post first cycle of systemic chemotherapy using carboplatin and [employer]-16 and Tecentriq 2 neutropenic fever, improving and the white second is improved and the patient is currently afebrile 3 acute febrile illness, currently under investigation and patient continues to be on IV cefepime, cultures are negative 4 acute hypoxic respiratory failure secondary to sepsis, underlying lung cancer 5 episodic SIDH, sodium level is adequate for now 6 altered mentation secondary to sepsis 7 hypertension 8 osteoarthritis 9 later in TB back in 1996 Plan Monitor fever pattern Monitor cultures Continue IV cefepime Neutropenia has recovered Monitor hematologic profile Monitor mental status CTA of the chest to assess progression of the lung cancer and rule out pulmonary embolism Doppler of the lower extremities We'll continue to follow
--- NOTE | 2021-05-11 17:26 | CT ---
EXAMINATION TYPE: CT angio chest DATE OF EXAM: 05/11/2021 COMPARISON: None HISTORY: SOB CT DLP: 209 mGycm Automated exposure control for dose reduction was used. CONTRAST: Performed with IV Contrast, patient injected with 100 mL of Isovue 370. Images obtained from the thoracic inlet to the diaphragm with IV contrast. There are Three-D postproc essed images. There is coarse interstitial infiltrate in the left upper lobe. There is coalescent similar infiltrat e in the left lower lobe. There is left pleural effusion. There is irregular 4 cm masslike area of in filtrate in the anterior right upper lobe adjacent to the chest wall with pleural thickening. There i s increased mediastinal density with lymph nodes that measure up to 3 cm. There is extensive adenopat hy at the right pulmonary hilum. There are lymph nodes up to 3 cm with some encasement of the pulmona ry arteries. Thoracic aorta is intact. There is no aneurysm or dissection. There is no evidence of filling defect in the pulmonary arteries. The thoracic spine is intact. There is no compression fracture. Sternum is intact. There is subcarinal 3 cm lymphadenopathy. IMPRESSION: No evidence of pulmonary embolism. Extensive pulmonary infiltrates. Massive mediastinal and bronchial adenopathy and consistent with tumor. Pulmonary infiltrates significantly increased compared to rece nt PET CT scan of 04/16/2021. This could be lymphangitic metastatic disease in the left lung. Right up per lobe masslike infiltrate without change.
[2021-05-11] MEDS: FILGRASTIM-SNDZ 300 MCG/0.5 ML SYRINGE SQ SCH (17:55)
--- NOTE | 2021-05-11 18:17 | P.PN ---
Subjective Progress Note Date: 05/11/21 Principal diagnosis: Acute delirium, SCLC In f/u today pt was is good spirits, denied SOB, he cont to be able to answer basic cognitive questions appropriately, no acute c/o, denies pain. Objective - Vital Signs Vital signs: Vital Signs Temp 98.4 F 05/11/21 11:19 Pulse 115 H 05/11/21 14:28 Resp 18 05/11/21 11:19 BP 148/75 05/11/21 11:19 Pulse Ox 89 L 05/11/21 14:28 Intake & Output 05/10/21 05/11/21 05/11/21 18:59 06:59 18:59 Intake Total 250 Output Total 300 Balance -50 Weight 56.245 kg Intake: Intake, IV Titration 100 Amount Cefepime 2 gm In Sodium 100 Chloride 0.9% 100 ml @ 25 mls/hr IVPB Q8H [facility] Rx#: [id number] Oral 150 Output: Urine 300 Other: Voiding Method Urinal Urinal Urinal Diaper Diaper Diaper Incontinent Incontinent Incontinent # Voids 2 3 2 - Constitutional General appearance: Present: cooperative, no acute distress, thin - EENT Eyes: Present: anicteric sclerae, EOMI ENT: Present: hearing grossly normal - Respiratory Respiratory: bilateral: CTA, diminished - Cardiovascular Details: tachycardia Heart sounds: normal: S1, S2 Abnormal Heart Sounds: Absent: systolic murmur, diastolic murmur, rub, S3 Gallop, S4 Gallop, click, other - Peripheral edema leg Peripheral Edema: bilateral: None - Gastrointestinal General gastrointestinal: Present: normal bowel sounds, soft - Neurologic Neurologic: Present: CNII-XII intact (grossly) - Psychiatric Psychiatric: Present: A&O x's 3, appropriate affect, intact judgment & insight - Labs CBC & Chem 7: 05/11/21 05:55 05/11/21 05:55 Labs: Abnormal Lab Results - Last 24 Hours (Table) 05/11/21 05/11/21 05/11/21 Range/Units 05:55 05:55 14:45 RBC 2.81 L (4.40-5.60) X 10*6/uL Hgb 8.5 L (13.0-17.0) g/dL Hct 24.9 L (39.6-50.0) % RDW 15.6 H (11.5-14.5) % Plt Count 95 L (140-440) X 10*3/uL Plt Count Comment DECREASED A Absolute Nucleated RBC 0.08 H (0.00-0.00) X 10*3/uL Metamyelocytes % 6 H (0-0) % Myelocytes % 9 H (0-0) % Blast Cells % 3 H* (0-0) % Eosinophils # (Manual) 0 L (0.04-0.35) X 10*3/uL NRBC/100 WBC Diff 1.0 H (0.0-0.0) /100 WBCS D-Dimer 19.65 H (<0.60) mg/L FEU Sodium 133 L (135-145) mmol/L Potassium 3.2 L (3.5-5.5) mmol/L Chloride 95 L (96-109) mmol/L Creatinine 0.3 L (0.6-1.5) mg/dL BUN/Creatinine Ratio 49.67 H (12.00-20.00) Ratio Calcium 8.1 L (8.7-10.3) mg/dL Microbiology - Last 24 Hours (Table) 05/06/21 20:59 Blood Culture - Preliminary Blood No Growth after 96 hours 05/06/21 20:44 Blood Culture - Preliminary Blood No Growth after 96 hours 05/08/21 18:58 Blood Culture - Preliminary Blood No Growth after 48 hours - Imaging and Cardiology CT scan - chest: report reviewed Assessment and Plan (1) Acute delirium Narrative/Plan: Pt is the same today. CT, MRI brain both neg. LP has been mentioned. Not planning at this time. Current Visit: Yes Status: Acute Priority: High Code(s): R41.0 - DISORIENTATION, UNSPECIFIED SNOMED Code(s): 4475847 (2) Pancytopenia Narrative/Plan: WBC 7.6, ANC 3.21. It was held for WBC but, GCSF is stopped based on ANC and can be given until ANC 10. Discontinued for now, cont to monitor CBC while inpt Hgb down to 8.5, no evidence to suggest acute bleeding. No transfusion today. Plt up to 95,000 today. Suspect slow recovery of counts from chemo Current Visit: Yes Status: Acute Priority: Medium Code(s): D61.818 - OTHER PANCYTOPENIA SNOMED Code(s): 159912843 (3) SIADH (syndrome of inappropriate ADH production) Narrative/Plan: 2/2 small cell lung cancer. Na+ stable for pt Current Visit: No Status: Acute Priority: Medium Code(s): E22.2 - SYNDROME OF INAPPROPRIATE SECRETION OF ANTIDIURETIC HORMONE SNOMED Code(s): 51493074 (4) Small cell lung cancer Narrative/Plan: S/P 1st cycle of carbo/POWDER BLENDER/tecentriq. Reviewed Pulmonary notes. CTA ordered. This was done after the patient was seen today by Oncology so, we will review those results tomorrow with Dr. Dias and have a discussion with the patient about the same as it pertains to Oncology. Patient is on immunotherapy and sometimes there can be pseudo-progression, especially early on in treatment. Patient's symptoms have been concerning for progression so, overt progression is not comp letely out of the question either. We'll review with the Primary Oncologist and follow-up. Treatment is next week, will keep appt for now, can be cancelled at any time Current Visit: Yes Status: Acute Priority: High Code(s): C34.90 - MALIGNANT NEOPLASM OF UNSP PART OF UNSP BRONCHUS OR LUNG SNOMED Code(s): 445562149 Plan: \
[2021-05-11] MEDS: HEPARIN SODIUM,PORCINE/PF 5,000 UNIT/0.5 ML SYRINGE SQ SCH (20:07)
--- NOTE | 2021-05-11 20:09 | US ---
EXAMINATION TYPE: US venous doppler duplex LE DATE OF EXAM: 05/11/2021 7:52 PM COMPARISON: NONE CLINICAL HISTORY: elevated d-dimer. Elevated d-dimer SIDE PERFORMED: Bilateral TECHNIQUE: The lower extremity deep venous system is examined utilizing real time linear array sonog jaswinder with graded compression, doppler sonography and color-flow sonography. VESSELS IMAGED: Common Femoral Vein Deep Femoral Vein Greater Saphenous Vein * Femoral Vein Popliteal Vein Small Saphenous Vein * Proximal Calf Veins (* superficial vessels) Right Leg: Negative for DVT Left Leg: Negative for DVT IMPRESSION: No evidence of deep vein thrombosis in the left leg and right leg.
[2021-05-12] MEDS: CEFEPIME 2 GM in SODIUM CHLORIDE 0.9% 100 ML IVPB SCH ×3 (01:42→17:15)
[2021-05-12] MEDS: SODIUM CHLORIDE TAB 1 GM TAB PO SCH ×2 (07:45→20:00)
[2021-05-12] MEDS: OLANZapine 2.5 MG TAB PO SCH (07:45)
[2021-05-12] MEDS: HEPARIN SODIUM,PORCINE/PF 5,000 UNIT/0.5 ML SYRINGE SQ SCH ×2 (07:45→20:00)
[2021-05-12] MEDS: MAGNESIUM OXIDE 400 MG TAB PO SCH (07:45)
[2021-05-12] MEDS: dexAMETHasone 2 MG TAB PO SCH (07:45)
[2021-05-12] MEDS: FOLIC ACID 1 MG TAB PO SCH (07:46)
--- NOTE | 2021-05-12 09:57 | P.PN ---
Subjective Patient is seen in follow-up for hyponatremia. Sodium level improved. Oral intake fair. Denies excessive fluid intake. No vomiting or diarrhea. Blood pressure stable. On 6 L nasal cannula. No changes overnight. Vital signs are stable. General: Awake and alert. HEENT: Head exam is unremarkable. LUNGS: Breath sounds decreased. Scattered wheezing. HEART: Rate and Rhythm are regular. ABDOMEN: Soft, no distention. EXTREMITITES: No edema. Objective - Vital Signs Vital signs: Vital Signs Temp 97.6 F 05/12/21 05:05 Pulse 100 05/12/21 05:05 Resp 20 05/12/21 05:05 BP 152/81 05/12/21 05:05 Pulse Ox 91 L 05/12/21 05:05 Intake & Output 05/11/21 05/12/21 05/12/21 18:59 06:59 18:59 Intake Total 250 900 Balance 250 900 Weight 56.245 kg Intake: Intake, IV Titration 100 300 Amount Cefepime 2 gm In Sodium 100 100 Chloride 0.9% 100 ml @ 25 mls/hr IVPB Q8H [facility] Rx#: [id number] Sodium Chloride 0.9% 1, 200 000 ml @ 20 mls/hr IV . Q24H [facility] Rx#:[id number] Oral 150 600 Other: Voiding Method Urinal Urinal Diaper Diaper Incontinent Incontinent # Voids 2 3 - Labs CBC & Chem 7: 05/11/21 05:55 05/11/21 05:55 Labs: Abnormal Lab Results - Last 24 Hours (Table) 05/11/21 05/11/21 Range/Units 05:55 14:45 RBC 2.81 L (4.40-5.60) X 10*6/uL Hgb 8.5 L (13.0-17.0) g/dL Hct 24.9 L (39.6-50.0) % RDW 15.6 H (11.5-14.5) % Plt Count 95 L (140-440) X 10*3/uL Plt Count Comment DECREASED A Absolute Nucleated RBC 0.08 H (0.00-0.00) X 10*3/uL Metamyelocytes % 6 H (0-0) % Myelocytes % 9 H (0-0) % Blast Cells % 3 H* (0-0) % Eosinophils # (Manual) 0 L (0.04-0.35) X 10*3/uL NRBC/100 WBC Diff 1.0 H (0.0-0.0) /100 WBCS D-Dimer 19.65 H (<0.60) mg/L FEU Microbiology - Last 24 Hours (Table) 05/06/21 20:59 Blood Culture - Preliminary Blood No Growth after 120 hours 05/06/21 20:44 Blood Culture - Preliminary Blood No Growth after 120 hours 05/08/21 18:58 Blood Culture - Preliminary Blood No Growth after 72 hours Assessment and Plan Plan: Assessment: 1. Hyponatremia secondary to SIADH. Status post. Sodium level 133 yesterday. 2. Small cell lung cancer. 3. Generalized debility. 4. Hypokalemia from poor intake. Replace. 5. Fever. Recently started on chemotherapy. Concern for pneumonia. CTA done 05/11/2021 showed extensive pulmonary infiltrates. Mediastinal and bronchial adenopathy consistent with tumor was present. ID following. On antibiotics. 6. Mild hypomagnesemia from poor intake. On oral magnesium oxide. Plan: 1500 ml fluid restriction. Maintain salt tabs. Monitor blood pressure. Encourage protein intake. Follow-up morning labs. No PE or DVT noted on CTA and venous Doppler study.
[2021-05-12 10:05] LABS: African American GFR (CKD) 137.5 (60.0-200.0); Anion Gap 13.9 mmol/L (10.00-18.00); BUN/Creat Ratio 38.5 Ratio (12.00-20.00); Blood Urea Nitrogen 15.4 mg/dL (9.0-27.0); Carbon Dioxide 24.1 mmol/L (20.0-27.5); Non-African American GFR(CKD) 118.7 (60.0-200.0); Potassium 3.7 mmol/L (3.5-5.5)
--- NOTE | 2021-05-12 11:40 | MR ---
EXAMINATION TYPE: MR cervical spine wo/w con DATE OF EXAM: 05/12/2021 11:26 AM COMPARISON: 11/14/2014 HISTORY: Left upper extremity weakness. Hx of lung mass CONTRAST: The patient was injected with 5.5 mL intravenous Gadavist gadolinium contrast. Multiplanar MultiSpin echo imaging of the cervical spine was performed. C2-C3: No evidence for degenerative disc disease. No disc bulge/herniation or protrusion. No Canal stenosis. Foramina are patent bilaterally. C3-C4: Mild disc desiccation. Mild posterocentral disc bulge. No herniation protrusion or central ap nosis. Mild right foraminal encroachment. C4-C5: Moderate disc desiccation. Moderate circumferential disc bulge effaces the ventral thecal sac posterocentrally and towards the right. Mild central stenosis. Bilateral foraminal encroachment right greater than left. C5-C6: Moderate disc desiccation. Moderate circumferential disc bulge effaces the ventral thecal sac posterocentrally. Moderate central stenosis. Bilateral foraminal encroachment C6-C7:Moderate disc desiccation. Moderate circumferential disc bulge effaces the ventral thecal sac p osterocentrally. Mild central stenosis. Bilateral foraminal encroachment. C7-T1: No evidence for degenerative disc disease. No disc bulge/herniation or protrusion. No Canal stenosis. Foramina are patent bilaterally. There is reversal of the normal cervical lordosis as was seen previously. Ventral spondylosis noted. Mild increased signal within the cervical spinal cord is unchanged and may reflect a mild compressive myelopathy. No enhancing lesions are detected about the cervical spinal cord or cervical segments. T here does appear to be right supraclavicular adenopathy. IMPRESSION: 1. Essentially stable appearance of the cervical spine with reversal of the normal cervical lordosis, disc desiccation with disc bulging and multilevel central stenosis as outlined above. No enhancing l esions of the cervical spine are seen. 2. Right supraclavicular adenopathy.
--- NOTE | 2021-05-12 12:56 | P.PN ---
<Grecia,Nelli - Last Filed: 05/12/21 12:46> Subjective Progress Note Date: 05/12/21 This is a 68-year-old male patient is known to me. 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 I establish his diagnosis through bronchoscopy and endobronchial ultrasound with no fine-needle aspirate. The patient also was having issues with hyponatremia with a sodium was dropping consistent with underlying SIADH. He was in the hospital on 05/01/2021 after the had a sodium level 113 and the patient had a witnessed seizure. He was in the intensive care unit. CAT scan of the brain was completed and it showed no evidence of any [employer] metastases. His chest x-ray was still showing a right hilar mass and the patient was subjected to fluid restriction, hypertonic saline at patient was discharged home to be readmitted within 48 hours because of altered mentation. The patient was accordingly admitted again to the hospital. The patient was found to be febrile and the patient was treated for neutropenic fever. Noted the patient has already received a first session of systemic chemotherapy on 04/28/2021 and he completed that on 04/30/2021. MRI of the brain with and without contrast done on 03/27/2021 showed moderate atrophy. No evidence of any metastases. For now, the patient is on the oncology floor. He is being followed up by oncology, neurology and nephrology. The patient had a t emperature of 102.6 and initially the patient was covered with a combination of antibiotics including cefepime and vancomycin. Subsequently, infectious disease discontinued the vancomycin and the patient is only on IV cefepime for now.. MRI of the lumbosacral spine showed degenerative disc disease and facet arthropathy and some nonspecific enhancing lumbosacral nerves that may be vascular but it is indeterminate. Note that the patient's fever has broken the patient has been afebrile over the past 24 hours. Nevertheless, he is slightly tachycardic. His white cell count during this current admission was as low as 1.2 and currently is up to 7.6. Hemoglobin is at 8.5. Platelet count is at 95. His d-dimer was at 19.6. BUN is at 14 with a creatinine of 0.3, and the sodium level of 133. The blood cultures been negative. The urine culture has been negative. The patient was given zarxio The patient is seen today 05/12/2021 in follow-up on the regular medical floor. He is currently resting in bed. Awake and alert in no acute distress. More oriented today compared to yesterday. He is maintaining O2 saturation in the low 90s on 6 L high flow nasal cannula. He's been afebrile. Hemodynamically stable. Dopplers of the lower extremities negative for DVT. CT angiogram ruled out pulmonary embolism. There is extensive pulmonary infiltrates. Massive mediastinal bronchial adenopathy consistent with tumor. Pulmonary infiltrates significantly increased compared to recent PET scan on 04/16/2021. Could represent lymphangitic metastatic disease in the left lung. Right upper lobe masslike infiltrate without change. MRI of the cervical spine revealed stable appearance of the cervical spine with reversal of the normal cervical lordosis, disc desiccation with disc bulging and multilevel central stenosis. No enhancing lesions of the cervical spine. Right supra-clavicular adenopathy. Blood cultures reveal no growth to date. Urine culture no growth. D-dimer 19.6. Sodium 134. Potassium 3.7. Bicarb 24. BUN 15. Creatinine 0.4. Influenza screen negative. RSV negative. COVID-19 screen negative. He is continued on heparin for DVT prophylaxis. Antibiotics in the form of cefepime. Remains on dexamethasone 1 mg daily. Objective - Vital Signs Vital signs: Vital Signs Temp 97.8 F 05/12/21 11:22 Pulse 98 05/12/21 11:22 Resp 16 05/12/21 11:22 BP 153/83 05/12/21 11:22 Pulse Ox 93 L 05/12/21 11:22 Intake & Output 05/11/21 05/12/21 05/12/21 18:59 06:59 18:59 Intake Total 250 900 Balance 250 900 Weight 56.245 kg Intake: Intake, IV Titration 100 300 Amount Cefepime 2 gm In Sodium 100 100 Chloride 0.9% 100 ml @ 25 mls/hr IVPB Q8H SUNG Rx#: [id number] Sodium Chloride 0.9% 1, 200 000 ml @ 20 mls/hr IV . Q24H SUNG Rx#:[id number] Oral 150 600 Other: Voiding Method Urinal Urinal Urinal Diaper Diaper Diaper Incontinent Incontinent Incontinent # Voids 2 3 - Exam GENERAL EXAM: Alert, very pleasant, 70-year-old male patient, on 6 L of nasal cannula HEAD: Normocephalic/atraumatic. EYES: Normal reaction of pupils, equal size. Conjunctiva pink, sclera white. NOSE: Clear with pink turbinates. THROAT: No erythema or exudates. NECK: No masses, no JVD, no thyroid enlargement, no adenopathy. CHEST: No chest wall deformity. Symmetrical expansion. LUNGS: Equal air entry with bilateral scattered rhonchi CVS: Regular rate and rhythm, normal S1 and S2, no gallops, no murmurs, no rubs ABDOMEN: Soft, nontender. No hepatosplenomegaly, normal bowel sounds, no guarding or rigidity. EXTREMITIES: No clubbing, no edema, no cyanosis, 2+ pulses and upper and lower extremities. MUSCULOSKELETAL: Muscle strength and tone normal. SPINE: No scoliosis or deformity SKIN: No rashes CENTRAL NERVOUS SYSTEM: Alert and occasionally confused. No focal deficits, tone is normal in all 4 extremities. No neck stiffness PSYCHIATRIC: Alert and oriented -3. Appropriate affect. Intact judgment and insight. - Labs CBC & Chem 7: 05/11/21 05:55 05/12/21 05:44 Labs: Abnormal Lab Results - Last 24 Hours (Table) 05/11/21 05/11/21 05/12/21 Range/Units 05:55 14:45 05:44 D-Dimer 19.65 H (<0.60) mg/L FEU Sodium 134 L (135-145) mmol/L Creatinine 0.4 L (0.6-1.5) mg/dL BUN/Creatinine Ratio 38.50 H (12.00-20.00) Ratio Hemoglobin A1c 7.2 H (0.0-6.0) % Calcium 8.0 L (8.7-10.3) mg/dL Microbiology - Last 24 Hours (Table) 05/06/21 20:59 Blood Culture - Preliminary Blood No Growth after 120 hours 05/06/21 20:44 Blood Culture - Preliminary Blood No Growth after 120 hours 05/08/21 18:58 Blood Culture - Preliminary Blood No Growth after 72 hours Assessment and Plan Assessment: 1 small cell lung cancer, early SVC syndrome, status post first cycle of systemic chemotherapy using carboplatin and [employer]ATE-16 and Tecentriq 2 neutropenic fever, improving and the white second is improved and the patient is currently afebrile 3 acute febrile illness, currently under investigation and patient continues to be on IV cefepime, cultures are negative 4 acute hypoxic respiratory failure secondary to sepsis, underlying lung cancer 5 episodic SIDH, sodium level is adequate for now 6 altered mentation secondary to sepsis 7 hypertension 8 osteoarthritis 9 latent TB back in 1996 Plan: The patient was seen and evaluated CT angiogram negative for PE Dopplers of the lower extremity negative for DVT Cervical spine MRI negative for metastasis Continue antibiotics Titrate down the FiO2 as tolerated We will continue to follow I have personally seen and examined the patient, performed the documentation and the assessment and plan as written. Number of minutes spent on the visit: 10. <Pancho Watson - Last Filed: 05/12/21 13:46> Objective - Vital Signs Vital signs: Vital Signs Temp 97.8 F 05/12/21 11:22 Pulse 98 05/12/21 11:22 Resp 16 05/12/21 11:22 BP 153/83 05/12/21 11:22 Pulse Ox 93 L 05/12/21 11:22 Intake & Output 05/11/21 05/12/21 05/12/21 18:59 06:59 18:59 Intake Total 250 900 Balance 250 900 Weight 56.245 kg Intake: Intake, IV Titration 100 300 Amount Cefepime 2 gm In Sodium 100 100 Chloride 0.9% 100 ml @ 25 mls/hr IVPB Q8H SUNG Rx#: [id number] Sodium Chloride 0.9% 1, 200 000 ml @ 20 mls/hr IV . Q24H SUNG Rx#:[id number] Oral 150 600 Other: Voiding Method Urinal Urinal Urinal Diaper Diaper Diaper Incontinent Incontinent Incontinent # Voids 2 3 - Labs CBC & Chem 7: 05/11/21 05:55 05/12/21 05:44 Labs: Abnormal Lab Results - Last 24 Hours (Table) 05/11/21 05/11/21 05/12/21 Range/Units 05:55 14:45 05:44 D-Dimer 19.65 H (<0.60) mg/L FEU Sodium 134 L (135-145) mmol/L Creatinine 0.4 L (0.6-1.5) mg/dL BUN/Creatinine Ratio 38.50 H (12.00-20.00) Ratio Hemoglobin A1c 7.2 H (0.0-6.0) % Calcium 8.0 L (8.7-10.3) mg/dL Microbiology - Last 24 Hours (Table) 05/06/21 20:59 Blood Culture - Preliminary Blood No Growth after 120 hours 05/06/21 20:44 Blood Culture - Preliminary Blood No Growth after 120 hours 05/08/21 18:58 Blood Culture - Preliminary Blood No Growth after 72 hours Assessment and Plan Assessment: I have personally seen and examined the patient and reviewed the documentation. I performed a joint evaluation with the nurse practitioner in this evaluation was done more than 20 minutes. I fully agree with the documentation above and the plan of care.. The patient had a CAT scan of the chest. This was consistent with pneumonia. No evidence of any pulmonary embolism. Patient continues to be on IV cefepime. Mental status is adequate. He is a bit weak and debilitated. White cell count is up to 7.6. Cultures are all negative. We'll continue to follow.
--- NOTE | 2021-05-12 13:34 | P.PN ---
Subjective Progress Note Date: 05/12/21 The patient is seen at bedside and states he feels about the same as yesterday. Per nurse he continues to have shortness of breath. Otherwise no new neurological problems. Objective - Vital Signs Vital signs: Vital Signs Temp 97.8 F 05/12/21 11:22 Pulse 98 05/12/21 11:22 Resp 16 05/12/21 11:22 BP 153/83 05/12/21 11:22 Pulse Ox 93 L 05/12/21 11:22 Intake & Output 05/11/21 05/12/21 05/12/21 18:59 06:59 18:59 Intake Total 250 900 Balance 250 900 Weight 56.245 kg Intake: Intake, IV Titration 100 300 Amount Cefepime 2 gm In Sodium 100 100 Chloride 0.9% 100 ml @ 25 mls/hr IVPB Q8H SUNG Rx#: [id number] Sodium Chloride 0.9% 1, 200 000 ml @ 20 mls/hr IV . Q24H SUNG Rx#:[id number] Oral 150 600 Other: Voiding Method Urinal Urinal Urinal Diaper Diaper Diaper Incontinent Incontinent Incontinent # Voids 2 3 - Exam GENERAL: The patient is lying in bed and is not in acute distress. NEUROLOGICAL: Higher mental function: The patient is awake, alert, oriented to self and place. Patient is following commands but minimally slow in responding. No aphasia and no neglect. Cranial nerves: The pupils are round, equal and reactive to light and accommodation. Visual stewart are full to confrontation throughout. Extraocular movement is intact no nystagmus is noted. Facial sensation is normal to touch throughout. The facial strength is normal throughout. Tongue is midline and moved [id number] without any difficulty. No dysarthria is noted. Shoulder shrug is normal bilaterally. Motor: The strength is left upper extremity is 4+. Left ankle dorsiflexion is 1-2. Otherwise strength 5 over 5 throughout. Cerebellum: Normal finger to nose bilaterally. Sensation: Sensation is normal to touch throughout. Reflexes (right/left): 1+ throughout. - Labs CBC & Chem 7: 05/11/21 05:55 05/12/21 05:44 Labs: Abnormal Lab Results - Last 24 Hours (Table) 05/11/21 05/11/21 05/12/21 Range/Units 05:55 14:45 05:44 D-Dimer 19.65 H (<0.60) mg/L FEU Sodium 134 L (135-145) mmol/L Creatinine 0.4 L (0.6-1.5) mg/dL BUN/Creatinine Ratio 38.50 H (12.00-20.00) Ratio Hemoglobin A1c 7.2 H (0.0-6.0) % Calcium 8.0 L (8.7-10.3) mg/dL Microbiology - Last 24 Hours (Table) 05/06/21 20:59 Blood Culture - Preliminary Blood No Growth after 120 hours 05/06/21 20:44 Blood Culture - Preliminary Blood No Growth after 120 hours 05/08/21 18:58 Blood Culture - Preliminary Blood No Growth after 72 hours Assessment and Plan Assessment: * Altered mental status, probably delirium. Cause is multifactorial as mentioned below---improved. * Patient has recently received chemotherapy on 04/28/2021 to 04/30/2021, perhaps possibly a side effect of it. * Persistent hyponatremia of 126. Today is 133. * Pancytopenia with anemia and leukopenia * Possible thrush over the tongue. * Metastatic small cell lung cancer * Left upper extremity weakness. Unknown exact cause. * Left foot drop, unclear cause. Patient denies habitual sitting with legs crossed. Patient denies of back pain. * Tobacco use Plan: MRI C-spine w/ and w/o: Was reported as essentially stable appearance of the cervical spine with reversal of the normal cervical lordosis, disc desiccation with disc bulging and multilevel central stenosis. No enhancing lesion of the cervical spine are seen. Right supraclavicular adenopathy. In the body they reported it is mentioned that the patient has disc bulging over C5-C6 which is moderate and has central stenosis bilateral foraminal encroachment. Also mild central stenosis bilateral foraminal with medical over C6-C7. In the C4-C5 patient has mild central stenosis bilateral foraminal encroachment right greater than the left. I recommend the patient to be evaluated as an outpatient by orthopedic team since he has a lot of issues that is being addressed as an inpatient. Patient had MRI Brain w/w/o: And it is reported as no pathological enhancement throughout the brain parenchyma. No evidence of metastatic disease. Similar atrophy and the age-related changes. Mild chronic ischemic white matter changes secondary due to chronic small vessel ischemic disease. No acute CVA. MRI the lumbar spine with and without is reported as degenerative disc disease, facet arthroplasty. Questionable focus of enhancement only seen on series 901 sagittal image may be vascular but is indeterminant. I had Dr. Ruiz (reading radiologist) to review the image and he put an addendum stating that the area of enhancement appears to correspond of nonspecific enhancing lumbosacral nerve negative. No suspicious clumping or nodular enhancement to suggest neoplastic involvement in the lumbosacral spinal canal. He felt that initial questionable enhancement is nonspecific Hemoglobin A1c 7.2 Recommend EMG with nerve conduction study of left upper and lower extremity as an outpatient Recommend AFO for left foot. PT, OT are consulted Nephrology is on board ID is on board Pulmonary team is on board for hypoxia Oncology team is on board We'll defer the rest of the medical management to the primary team Upon discharge the patient needs to follow-up with a neurologist as outpatient within 1-2 weeks next Plan was discussed with the patient, his nurse and Primary team (N.P.). There is no further neurological workup needed. Please notify neurology team if any further concerns. Barron Duarte M.D. Neuro-hospitalist Time with Patient: Less than 30
--- NOTE | 2021-05-12 14:36 | P.PN ---
Subjective Progress Note Date: 05/12/21 Principal diagnosis: Acute delirium, SCLC In f/u today pt was more confused, did not answer questions appropriately, he visually looks more SOB. Objective - Vital Signs Vital signs: Vital Signs Temp 97.8 F 05/12/21 11:22 Pulse 98 05/12/21 11:22 Resp 16 05/12/21 11:22 BP 153/83 05/12/21 11:22 Pulse Ox 93 L 05/12/21 11:22 Intake & Output 05/11/21 05/12/21 05/12/21 18:59 06:59 18:59 Intake Total 250 900 Balance 250 900 Weight 56.245 kg Intake: Intake, IV Titration 100 300 Amount Cefepime 2 gm In Sodium 100 100 Chloride 0.9% 100 ml @ 25 mls/hr IVPB Q8H SUNG Rx#: [id number] Sodium Chloride 0.9% 1, 200 000 ml @ 20 mls/hr IV . Q24H SUNG Rx#:[id number] Oral 150 600 Other: Voiding Method Urinal Urinal Urinal Diaper Diaper Diaper Incontinent Incontinent Incontinent # Voids 2 3 - Constitutional General appearance: Present: cooperative, no acute distress, thin - EENT Eyes: Present: anicteric sclerae, EOMI ENT: Present: hearing grossly normal, normal oropharynx - Respiratory Details: Diminished, harsh sounds - Cardiovascular Rhythm: regular Heart sounds: normal: S1, S2 Abnormal Heart Sounds: Absent: systolic murmur, diastolic murmur, rub, S3 Gallop, S4 Gallop, click, other - Gastrointestinal General gastrointestinal: Present: normal bowel sounds, soft - Musculoskeletal Musculoskeletal: Present: generalized weakness - Psychiatric Psychiatric: Present: A&O x's 3 - Labs CBC & Chem 7: 05/11/21 05:55 05/12/21 05:44 Labs: Abnormal Lab Results - Last 24 Hours (Table) 05/11/21 05/11/21 05/12/21 Range/Units 05:55 14:45 05:44 D-Dimer 19.65 H (<0.60) mg/L FEU Sodium 134 L (135-145) mmol/L Creatinine 0.4 L (0.6-1.5) mg/dL BUN/Creatinine Ratio 38.50 H (12.00-20.00) Ratio Hemoglobin A1c 7.2 H (0.0-6.0) % Calcium 8.0 L (8.7-10.3) mg/dL Microbiology - Last 24 Hours (Table) 05/06/21 20:59 Blood Culture - Preliminary Blood No Growth after 120 hours 05/06/21 20:44 Blood Culture - Preliminary Blood No Growth after 120 hours 05/08/21 18:58 Blood Culture - Preliminary Blood No Growth after 72 hours - Imaging and Cardiology CT scan - chest: report reviewed Assessment and Plan (1) Acute delirium Narrative/Plan: Pt is the same today. CT, MRI brain both neg. LP has been mentioned. Not planning at this time. Pt was a little worse today when compared to yesterday. Current Visit: Yes Status: Acute Priority: High Code(s): R41.0 - DISORIEN TATION, UNSPECIFIED SNOMED Code(s): 0867859 (2) Pancytopenia Narrative/Plan: No CBC today-ordered for AM. GCSF was held yesterday so, I just discontinued for now. Suspect slow recovery of counts from chemo Current Visit: Yes Status: Acute Priority: Medium Code(s): D61.818 - OTHER PANCYTOPENIA SNOMED Code(s): 678713200 (3) SIADH (syndrome of inappropriate ADH production) Narrative/Plan: 2/2 small cell lung cancer. Na+ stable for pt Current Visit: No Status: Acute Priority: Medium Code(s): E22.2 - SYNDROME OF INAPPROPRIATE SECRETION OF ANTIDIURETIC HORMONE SNOMED Code(s): 84510844 (4) Small cell lung cancer Narrative/Plan: S/P 1st cycle of carbo/HAND SOLE SEWER/tecentriq. Reviewed Pulmonary notes. CTA done. Dr. Dias and Dr. Menendez discussed case. [place] pneumonia so, pt is being treated for the same. Will see how he dose over the next few days. Patient did receive immunotherapy and sometimes there can be pseudo-progression, especially early on in treatment. Patient's symptoms have been concerning for progression so, overt progression is not completely out of the question either. Treating for a suspected pneumonia. Treatment is next week, will keep appt for now, can be cancelled at any time Current Visit: Yes Status: Acute Priority: High Code(s): C34.90 - MALIGNANT NEOPLASM OF UNSP PART OF UNSP BRONCHUS OR LUNG SNOMED Code(s): 489866629 Plan: attests: I have seen and examined pt, performed H&P and developed impression and plan of care. Discussed with dictator. Agree with dictation, documented as a scribe.
[2021-05-12] MEDS: SODIUM CHLORIDE 0.9% 1,000 ML IV SCH (20:00)
--- NOTE | 2021-05-12 22:33 | P.PN ---
Subjective Progress Note Date: 05/12/21 This is a pleasant 70-year-old male who was recently admitted with altered mental status and per the acute delirium. Patient was recently just discharged for severe hyponatremia. Patient was evaluated by physical therapy recommending subacute rehab although patient refused at that time and wanted to go home and Homecare was being arranged. Per patient continued to be confused and more altered and so was brought back to the hospital for further evaluation. Neurology and oncology been consulted and pending. Will also consult nephrology as patient sodium continues to be low and is currently 127. Patient does have an extensive past medical history of hypertension, osteoarthritis, EtOH abuse, and also small cell lung carcinoma and is currently receiving chemo immunotherapy treatments. Patient has been on high-dose steroids with a taper of Decadron per oncology services. Patient also recently had further workup with a bronchoscopy with biopsy in March that confirmed the small cell lung carcinoma and patient also underwent PET scan and findings were extensive stage IV disease. On admission to the ER labs were found to be a WBC of 1.3, hemoglobin 10.0, platelets were 100, sodium was 126, potassium 4.7, BUN 23, creatinine 0.33, magnesium 1.8, urinalysis is negative. Patient had a CT of the brain without contrast showing no evidence of intracranial hemorrhage mass effect or midline shift the white matter is grossly preserved and there is no acute intracranial abnormality noted. Patient was admitted for further evaluation and will also have PT/OT therapy evaluate the patient and will consult case management/social service assistant to evaluate for ECF. Consultations currently pending. 05/10/2021 Patient is seen and evaluated in follow-up today currently sitting up in the chair. Patient being followed closely by nephrology. Patient continues with confusion at times and recommend PT/OT evaluation for possible ECF. Oncology also following along with neurology and LS-spine MRI is ordered and pending at this time. Patient continues with low-grade fevers and is maintained on IV antibiotics and will continue. Infectious disease was consulted and pending. Patient received a dose of Samsca yesterday and sodium improved at 131 today and recommend continue with fluid restrictions and will repeat labs. 05/11/2021 Patient is seen in follow-up today no acute overnight issues noted. Multiple medical consultations including nephrology, oncology, neurology following. Infectious disease also following and patient is maintained on IV cefepime and vancomycin has been discontinued. Patient had been having low-grade temps with a T-max of 102.6 and is currently afebrile for the last 24 hours now. Sputum culture along with influenza and RSV testing currently pending. This was discussed with nursing staff and the cultures will be obtained. Patient underwent MRI of the LS spine and degenerative disc disease with facet arthropathy noted and also there were 2 nonspecific enhancing lumbosacral nerves that are negative and there is no suspicious clumping or nodular enhancement images suggest neoplastic involvement in the lumbosacral spine canal. Neurology following recommending outpatient follow-up with further EMG testing and studies is necessary. Sodium improved at 133 today and potassium found to be low at 3.2 and will replace magnesium is 1.8 today. Patient requiring 4 L of oxygen and states he does not wear oxygen in the outpatient setting and will consult pulmonary which is pending at this time. Patient denies chest pain or shortness of breath. Patient reported that he was told his oxygen saturation is low and placed on oxygen. 05/12/2021 Patient is seen in follow up and appears calm and in no distress. Patient is confused with periods of being appropriate. Patient has increased oxygen demand now at 6 L. D-dimer was elevated and CTA ordered with no evidence of PE. RSV, covid, influenza are negative. Patient is afebrile. Patient to have mri of the cervical spine today with neurology following. Possible pneumonia or viral illne ss being considered. Review of systems: Constitutional: No reports of fatigue, fever, or chills Cardiovascular: No reports of chest pain or palpitations Respiratory: No reports of shortness of breath or cough GI: No reports of nausea, vomiting, or diarrhea : No reports of dysuria or retention Neurovascular: No reports of weakness or numbness All medications have been reviewed Active Medications Acetaminophen (Acetaminophen Tab 325 Mg Tab) 650 mg PO Q6HR PRN PRN Reason: Fever and/ or Pain Last Admin: 05/08/21 13:46 Dose: 650 mg Documented by: Artificial Tears (Artificial Tears-Hypromellose Drops 15 Ml Btl) 1 drops BOTH EYES DAILY PRN PRN Reason: DRY EYES Dexamethasone (Dexamethasone 2 Mg Tab) 1 mg PO DAILY [facility] Last Admin: 05/12/21 07:45 Dose: 1 mg Documented by: Folic Acid (Folic Acid 1 Mg Tab) 1 mg PO DAILY [facility] Last Admin: 05/12/21 07:46 Dose: 1 mg Documented by: Heparin Sodium (Porcine) (Heparin Sodium,Porcine/Pf 5,000 Unit/0.5 Ml Syringe) 5,000 unit SQ Q12HR [facility] Last Admin: 05/12/21 20:00 Dose: 5,000 unit Documented by: Sodium Chloride (Saline 0.9%) 1,000 mls @ 20 mls/hr IV .Q24H [facility] Last Admin: 05/12/21 20:00 Dose: 20 mls/hr Documented by: Cefepime HCl 2 gm/ Sodium (Chloride) 100 mls @ 25 mls/hr IVPB Q8H [facility]; Protocol Last Admin: 05/12/21 17:15 Dose: 25 mls/hr Documented by: Magnesium Oxide (Magnesium Oxide 400 Mg Tab) 400 mg PO DAILY [facility] Last Admin: 05/12/21 07:45 Dose: 400 mg Documented by: Miscellaneous Information (Potassium Replacement Protocol 1 Each Misc) 1 each MISCELLANE DAILY PRN; Protocol PRN Reason: Per Protocol Miscellaneous Information (Potassium Replacement Protocol 1 Each Misc) 1 each MISCELLANE DAILY PRN; Protocol PRN Reason: Per Protocol Naloxone HCl (Naloxone 0.4 Mg/Ml 1 Ml Vial) 0.2 mg IV Q2M PRN PRN Reason: Opioid Reversal Olanzapine (Olanzapine 2.5 Mg Tab) 2.5 mg PO DAILY [facility] Stop: 05/21/21 23:00 Last Admin: 05/12/21 07:45 Dose: 2.5 mg Documented by: Ondansetron HCl (Ondansetron 4 Mg Tab) 4 mg PO Q4H PRN PRN Reason: Nausea Sodium Chloride (Sodium Chloride Tab 1 Gm Tab) 1 gm PO BID [facility] Last Admin: 05/12/21 20:00 Dose: 1 gm Documented by: PHYSICAL EXAMINATION: GENERAL: The patient is alert and awake, continues to be confused at times, thin built, cachectic, ill-appearing. HEENT: Pupils are round and equally reacting to light. EOMI. does have scleral icterus. No conjunctival pallor. Normocephalic, atraumatic. No pharyngeal erythema. No thyromegaly. CARDIOVASCULAR: S1 and S2 muffled PULMONARY: diminished breath sounds bilaterally with some scattered rhonchi noted. ABDOMEN: soft. Non-tender on exam. Thin built. non-distended, normoactive bowel sounds. No palpable organomegaly. MUSCULOSKELETAL: No joint swelling or deformity. EXTREMITIES: No cyanosis, clubbing, or pedal edema. NEUROLOGICAL: Gross neurological examination did not reveal any focal deficits. Diffuse weakness SKIN: No rashes. Assessment: Acute delirium Fever, possible sepsis, present on admission Possible pneumonia elevated d-dimer with no evidence of PE on CT Acute hypoxic respiratory failure possibly secondary to stage IV lung carcinoma, requiring 4 L of oxygen Severe Gait dysfunction Generalized weakness Hyponatremia Pancytopenia Small cell lung carcinoma, receiving chemotherapy treatments Underlying COPD with extensive tobacco and cigar use history GI prophylaxis DVT prophylaxis Full code Plan: Recommend to continue with current medications and symptomatic treatment. Multiple medical consultations including neurology, nephrology, oncology f ollowing. Infectious disease following as well. Patient is maintained on IV cefepime. Pulmonary following and possible pneumonia is suspected and being worked up. Sputum cultures pending. D-dimer was elevated at 19 and underwent CTA that was negative for PE. Patient also had venous dopplers done that were negative. Patient requiring more oxygen at 6L via NC and denies shortness of breath. Patient is confused. Neurology following and mri studies have been negative. Sodium stable and continues on fluid restrictions. PT/OT following and continues to be weak. Refusing rehab. Repeat labs ordered for am.Due to multiple complex medical issues, prognosis is guarded. The impression and plan of care has been dictated by Keren Dickson, nurse practitioner as directed. MD Tasneem I have performed a history and examination and MDM of this patient, discussed the same with the dictator, and agree with the dictator's assessment and plan as written ,documented as a scribe. Based on total visit time, I have performed more than 50% of the visit. Objective - Vital Signs Vital signs: Vital Signs Temp 97.6 F 05/12/21 05:05 Pulse 100 05/12/21 05:05 Resp 20 05/12/21 05:05 BP 152/81 05/12/21 05:05 Pulse Ox 91 L 05/12/21 05:05 Intake & Output 05/11/21 05/12/21 05/12/21 18:59 06:59 18:59 Intake Total 250 900 Balance 250 900 Weight 56.245 kg Intake: Intake, IV Titration 100 300 Amount Cefepime 2 gm In Sodium 100 100 Chloride 0.9% 100 ml @ 25 mls/hr IVPB Q8H [facility] Rx#: [id number] Sodium Chloride 0.9% 1, 200 000 ml @ 20 mls/hr IV . Q24H [facility] Rx#:[id number] Oral 150 600 Other: Voiding Method Urinal Urinal Diaper Diaper Incontinent Incontinent # Voids 2 3 - Labs CBC & Chem 7: 05/11/21 05:55 05/12/21 05:44 Labs: Abnormal Lab Results - Last 24 Hours (Table) 05/11/21 05/11/21 Range/Units 05:55 14:45 RBC 2.81 L (4.40-5.60) X 10*6/uL Hgb 8.5 L (13.0-17.0) g/dL Hct 24.9 L (39.6-50.0) % RDW 15.6 H (11.5-14.5) % Plt Count 95 L (140-440) X 10*3/uL Plt Count Comment DECREASED A Absolute Nucleated RBC 0.08 H (0.00-0.00) X 10*3/uL Metamyelocytes % 6 H (0-0) % Myelocytes % 9 H (0-0) % Blast Cells % 3 H* (0-0) % Eosinophils # (Manual) 0 L (0.04-0.35) X 10*3/uL NRBC/100 WBC Diff 1.0 H (0.0-0.0) /100 WBCS D-Dimer 19.65 H (<0.60) mg/L FEU Microbiology - Last 24 Hours (Table) 05/06/21 20:59 Blood Culture - Preliminary Blood No Growth after 120 hours 05/06/21 20:44 Blood Culture - Preliminary Blood No Growth after 120 hours 05/08/21 18:58 Blood Culture - Preliminary Blood No Growth after 72 hours
[2021-05-13] MEDS: CEFEPIME 2 GM in SODIUM CHLORIDE 0.9% 100 ML IVPB SCH ×3 (02:17→18:22)
[2021-05-13 06:30] LABS: MCH 31.8 pg (25.0-35.0); MCHC 35.1 g/dL (31.0-37.0); MCV 90.6 fL (80.0-100.0); Mean Platelet Volume 8.3; Poikilocytosis Slight; RBC 2.76 m/uL (4.30-5.90); RDW 15.7 % (11.5-15.5)
[2021-05-13 06:35] LABS: HGB 8.8 gm/dL (13.0-17.5); Platelet Count 152 k/uL (150-450)
[2021-05-13 06:53] LABS: Band Neutrophils % 21 %; Metamyelocytes % 13 %; Myelocytes % 12 %; Neutrophils % (M) 29 %; Nucleated Red Blood Cells 1 /100 WBC (0-0); Promyelocytes % 2 %; Total Cells Counted 200
[2021-05-13 06:54] LABS: Blast Cells # (M) 0.35 k/uL (0); Lymphocytes # (M) 2.48 k/uL (1.0-4.8); Monocytes # (M) 1.24 k/uL (0-1.0); Myelocytes # (M) 2.12 k/uL (0); Promyelocytes # (M) 0.35 k/uL (0); WBC 17.7 k/uL (3.8-10.6)
[2021-05-13 06:55] LABS: Anisocytosis (M) Present; Poikilocytosis (M) Present; Toxic Granulation Present
[2021-05-13] MEDS: HEPARIN SODIUM,PORCINE/PF 5,000 UNIT/0.5 ML SYRINGE SQ SCH ×2 (08:24→20:37)
[2021-05-13] MEDS: FOLIC ACID 1 MG TAB PO SCH (08:25)
[2021-05-13] MEDS: OLANZapine 2.5 MG TAB PO SCH (08:25)
[2021-05-13] MEDS: SODIUM CHLORIDE TAB 1 GM TAB PO SCH ×2 (08:25→20:37)
[2021-05-13] MEDS: dexAMETHasone 2 MG TAB PO SCH (08:25)
[2021-05-13] MEDS: MAGNESIUM OXIDE 400 MG TAB PO SCH (08:25)
[2021-05-13 09:08] LABS: African American GFR (CKD) 154.8 (60.0-200.0); Anion Gap 9.6 mmol/L (10.00-18.00); BUN/Creat Ratio 57.33 Ratio (12.00-20.00); Blood Urea Nitrogen 17.2 mg/dL (9.0-27.0); Calcium 7.8 mg/dL (8.7-10.3); Carbon Dioxide 25.4 mmol/L (20.0-27.5); Non-African American GFR(CKD) 133.6 (60.0-200.0); Potassium 3.5 mmol/L (3.5-5.5)
[2021-05-13] MEDS ORDERED: POTASSIUM CHLORIDE ER 20 MEQ TAB.ER PO STA ×2 (10:00→12:18)
--- NOTE | 2021-05-13 10:01 | P.PN ---
Subjective Patient is seen in follow-up for hyponatremia. Sodium level fairly stable. Oral intake fair. Denies excessive fluid intake. No vomiting or diarrhea. Blood pressure stable. On 6 L nasal cannula. No active complaints. Vital signs are stable. General: Awake and alert. HEENT: Head exam is unremarkable. LUNGS: Breath sounds decreased. Scattered wheezing. HEART: Rate and Rhythm are regular. ABDOMEN: Soft, no distention. EXTREMITITES: No edema. Objective - Vital Signs Vital signs: Vital Signs Temp 98.2 F 05/13/21 05:00 Pulse 107 H 05/13/21 05:00 Resp 18 05/13/21 05:00 BP 148/73 05/13/21 05:00 Pulse Ox 91 L 05/13/21 05:00 Intake & Output 05/12/21 05/13/21 05/13/21 18:59 06:59 18:59 Intake Total 700 300 Balance 700 300 Intake: Intake, IV Titration 100 300 Amount Cefepime 2 gm In Sodium 100 100 Chloride 0.9% 100 ml @ 25 mls/hr IVPB Q8H [facility] Rx#: [id number] Sodium Chloride 0.9% 1, 200 000 ml @ 20 mls/hr IV . Q24H [facility] Rx#:[id number] Blood Product 600 Other: Voiding Method Urinal Urinal Diaper Diaper Incontinent Incontinent # Voids 3 3 - Labs CBC & Chem 7: 05/13/21 05:34 05/13/21 05:34 Labs: Abnormal Lab Results - Last 24 Hours (Table) 05/11/21 05/12/21 05/13/21 Range/Units 05:55 05:44 05:34 WBC (3.8-10.6) k/uL RBC (4.30-5.90) m/uL Hgb (13.0-17.5) gm/dL Hct (39.0-53.0) % RDW (11.5-15.5) % Blast Cells % % Neutrophils # (Manual) (1.3-7.7) k/uL Monocytes # (Manual) (0-1.0) k/uL Metamyelocytes # (Man) (0) k/uL Myelocytes # (Manual) (0) k/uL Promyelocytes # (Man) (0) k/uL Blast Cells # (Man) (0) k/uL Nucleated RBCs (0-0) /100 WBC Sodium 134 L 132 L (135-145) mmol/L Anion Gap 9.60 L (10.00-18.00) mmol/L Creatinine 0.4 L 0.3 L (0.6-1.5) mg/dL BUN/Creatinine Ratio 38.50 H 57.33 H (12.00-20.00) Ratio Hemoglobin A1c 7.2 H (0.0-6.0) % Calcium 8.0 L 7.8 L (8.7-10.3) mg/dL 05/13/21 Range/Units 05:34 WBC 17.7 H (3.8-10.6) k/uL RBC 2.76 L (4.30-5.90) m/uL Hgb 8.8 L D (13.0-17.5) gm/dL Hct 25.0 L (39.0-53.0) % RDW 15.7 H (11.5-15.5) % Blast Cells % 2 H* % Neutrophils # (Manual) 8.80 H (1.3-7.7) k/uL Monocytes # (Manual) 1.24 H (0-1.0) k/uL Metamyelocytes # (Man) 2.30 H (0) k/uL Myelocytes # (Manual) 2.12 H (0) k/uL Promyelocytes # (Man) 0.35 H (0) k/uL Blast Cells # (Man) 0.35 H (0) k/uL Nucleated RBCs 1 H (0-0) /100 WBC Sodium (135-145) mmol/L Anion Gap (10.00-18.00) mmol/L Creatinine (0.6-1.5) mg/dL BUN/Creatinine Ratio (12.00-20.00) Ratio Hemoglobin A1c (0.0-6.0) % Calcium (8.7-10.3) mg/dL Microbiology - Last 24 Hours (Table) 05/06/21 20:59 Blood Culture - Final Blood No Growth after 144 hours 05/06/21 20:44 Blood Culture - Final Blood No Growth after 144 hours 05/08/21 18:58 Blood Culture - Preliminary Blood No Growth after 96 hours Assessment and Plan Plan: Assessment: 1. Hyponatremia secondary to SIADH. Status post samsca. Sodium level 132. 2. Small cell lung cancer. 3. Generalized debility. 4. Hypokalemia from poor intake. Replaced. 5. Fever. Recently started on chemotherapy. Concern for pneumonia. CTA done 05/11/2021 showed extensive pulmonary infiltrates. Mediastinal and bronchial adenopathy consistent with tumor was present. ID following. On antibiotics. 6. Mild hypomagnesemia from poor intake. On oral magnesium oxide. Plan: 1500 ml fluid restriction. Maintain salt tabs. Blood pressure stable. Encourage protein intake. No PE or DVT noted on CTA and venous Doppler study. Replace potassium.
--- NOTE | 2021-05-13 11:27 | CDI ---
Documentation Clarification Form Date: 05/13/2021 10:59:05 AM From: Alisa Love RN CCDS Admit Date: 05/06/2021 07:45:00 PM Patient Name: Champ Cordon Visit Number: [id number] Discharge Date: ATTENTION: The Clinical Documentation Specialists (CDI) and [facility] Coding Staff appreciate your assistance in clarifying documentation. Please respond to the clarification below the line at the bottom and electronically sign. The CDI & [facility] Coding staff will review the response and follow-up if needed. Please note: Queries are made part of the Legal Health Record. If you have any questions, please contact the author of this message via ITS. Dr. Barron Duarte Your patient has the documented symptom of Altered Mental Status 05/12, Neurology progress note. Additional clarification regarding the etiology/cause of this symptom is requested. History/Risk Factors: 70-year-old male presents to the ED for Altered Mental Status, recently discharged for severe hyponatremia. Medical History: Lung Cancer; HTN, Chemotherapy 04/28 to 04/30 and OA. Clinical Indicators: VSS: B/P 113/58; HR 102; Temp 99.0; RR 20; SpO2 97% room air Labs: 05/06: Wbc 1.3; Hgb 10.0; Rbc 3.16; Platelet count 100.0 and NA 126 MRI 05/07: Mild chronic ischemic white matter changes secondary to chronic small vessel ischemic disease. Treatment: 05/07 05/09 Sodium Chloride Tab 1gm PO Daily; 05/09 05/13 Sodium Chloride Tab 1gm BID; 05/09 Samsca 15mg PO x 1; 05/07 05/13 Folic Acid 1mg PO Daily. Please clarify the etiology of the symptom of Altered Mental Status: [ ] Metabolic Encephalopathy due to Hyponatremia, Pancytopenia and Chemotherapy. [ ] Other condition (please specify) [ ] Unable to determine Encephalopathy of unknown. (Template Last Revised: March 2020) MTDD
--- NOTE | 2021-05-13 12:20 | P.PN ---
Subjective Progress Note Date: 05/13/21 This is a 68-year-old male patient is known to me. 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 I establish his diagnosis through bronchoscopy and endobronchial ultrasound with no fine-needle aspirate. The patient also was having issues with hyponatremia with a sodium was dropping consistent with underlying SIADH. He was in the hospital on 05/01/2021 after the had a sodium level 113 and the patient had a witnessed seizure. He was in the intensive care unit. CAT scan of the brain was completed and it showed no evidence of any FORMS ANALYSIS MANAGER metastases. His chest x-ray was still showing a right hilar mass and the patient was subjected to fluid restriction, hypertonic saline at patient was discharged home to be readmitted within 48 hours because of altered mentation. The patient was accordingly admitted again to the hospital. The patient was found to be febrile and the patient was treated for neutropenic fever. Noted the patient has already received a first session of systemic chemotherapy on 04/28/2021 and he completed that on 04/30/2021. MRI of the brain with and without contrast done on 03/27/2021 showed moderate atrophy. No evidence of any metastases. For now, the patient is on the oncology floor. He is being followed up by oncology, neurology and nephrology. The patient had a temperature of 102.6 and initially the patient was covered with a combination of antibiotics including cefepime and vancomycin. Subsequently, infectious disease discontinued the vancomycin and the patient is only on IV cefepime for now.. MRI of the lumbosacral spine showed degenerative disc disease and facet arthropathy and some nonspecific enhancing lumbosacral nerves that may be vascular but it is indeterminate. Note that the patient's fever has broken the patient has been afebrile over the past 24 hours. Nevertheless, he is slightly tachycardic. His white cell count during this current admission was as low as 1.2 and currently is up to 7.6. Hemoglobin is at 8.5. Platelet count is at 95. His d-dimer was at 19.6. BUN is at 14 with a creatinine of 0.3, and the sodium level of 133. The blood cultures been negative. The urine culture has been negative. The patient was given zarxio The patient is seen today 05/12/2021 in follow-up on the regular medical floor. He is currently resting in bed. Awake and alert in no acute distress. More oriented today compared to yesterday. He is maintaining O2 saturation in the low 90s on 6 L high flow nasal cannula. He's been afebrile. Hemodynamically stable. Dopplers of the lower extremities negative for DVT. CT angiogram ruled out pulmonary embolism. There is extensive pulmonary infiltrates. Massive mediastinal bronchial adenopathy consistent with tumor. Pulmonary infiltrates significantly increased compared to recent PET scan on 04/16/2021. Could represent lymphangitic metastatic disease in the left lung. Right upper lobe masslike infiltrate without change. MRI of the cervical spine revealed stable appearance of the cervical spine with reversal of the normal cervical lordosis, disc desiccation with disc bulging and multilevel central stenosis. No enhancing lesions of the cervical spine. Right supra-clavicular adenopathy. Blood cultures reveal no growth to date. Urine culture no growth. D-dimer 19.6. Sodium 134. Potassium 3.7. Bicarb 24. BUN 15. Creatinine 0.4. In fluenza screen negative. RSV negative. COVID-19 screen negative. He is continued on heparin for DVT prophylaxis. Antibiotics in the form of cefepime. Remains on dexamethasone 1 mg daily. The patient is seen today 05/13/2021 in follow-up on the regular medical floor. He is resting comfortably in bed. Awake and alert in no acute distress. More oriented today compared to yesterday. He denies any worsening shortness of breath, cough or congestion. The cultures reveal no growth. Urine culture revealed no growth. Follow-up blood cultures revealed no growth. White count 17.7. Hemoglobin 8.8. Platelets 152. Sodium 137. Potassium 3.5. BUN 17. Creatinine 0.3. He is continued on cefepime, dexamethasone. Heparin for DVT prophylaxis. Objective - Vital Signs Vital signs: Vital Signs Temp 98.2 F 05/13/21 05:00 Pulse 107 H 05/13/21 05:00 Resp 18 05/13/21 05:00 BP 148/73 05/13/21 05:00 Pulse Ox 91 L 05/13/21 05:00 Intake & Output 05/12/21 05/13/21 05/13/21 18:59 06:59 18:59 Intake Total 700 300 Balance 700 300 Intake: Intake, IV Titration 100 300 Amount Cefepime 2 gm In Sodium 100 100 Chloride 0.9% 100 ml @ 25 mls/hr IVPB Q8H [facility] Rx#: [id number] Sodium Chloride 0.9% 1, 200 000 ml @ 20 mls/hr IV . Q24H [facility] Rx#:[id number] Blood Product 600 Other: Voiding Method Urinal Urinal Diaper Diaper Incontinent Incontinent # Voids 3 3 - Exam GENERAL EXAM: Alert, very pleasant, frail 70-year-old male patient, on 6 L of nasal cannula HEAD: Normocephalic/atraumatic. EYES: Normal reaction of pupils, equal size. Conjunctiva pink, sclera white. NOSE: Clear with pink turbinates. THROAT: No erythema or exudates. NECK: No masses, no JVD, no thyroid enlargement, no adenopathy. CHEST: No chest wall deformity. Symmetrical expansion. LUNGS: Equal air entry with bilateral scattered rhonchi CVS: Regular rate and rhythm, normal S1 and S2, no gallops, no murmurs, no rubs ABDOMEN: Soft, nontender. No hepatosplenomegaly, normal bowel sounds, no guarding or rigidity. EXTREMITIES: No clubbing, no edema, no cyanosis, 2+ pulses and upper and lower extremities. MUSCULOSKELETAL: Muscle strength and tone normal. SPINE: No scoliosis or deformity SKIN: No rashes CENTRAL NERVOUS SYSTEM: Alert and occasionally confused. No focal deficits, tone is normal in all 4 extremities. No neck stiffness PSYCHIATRIC: Alert and oriented -3. Appropriate affect. Intact judgment and insight. - Labs CBC & Chem 7: 05/13/21 05:34 05/13/21 05:34 Labs: Abnormal Lab Results - Last 24 Hours (Table) 05/13/21 05/13/21 Range/Units 05:34 05:34 WBC 17.7 H (3.8-10.6) k/uL RBC 2.76 L (4.30-5.90) m/uL Hgb 8.8 L D (13.0-17.5) gm/dL Hct 25.0 L (39.0-53.0) % RDW 15.7 H (11.5-15.5) % Blast Cells % 2 H* % Neutrophils # (Manual) 8.80 H (1.3-7.7) k/uL Monocytes # (Manual) 1.24 H (0-1.0) k/uL Metamyelocytes # (Man) 2.30 H (0) k/uL Myelocytes # (Manual) 2.12 H (0) k/uL Promyelocytes # (Man) 0.35 H (0) k/uL Blast Cells # (Man) 0.35 H (0) k/uL Nucleated RBCs 1 H (0-0) /100 WBC Sodium 132 L (135-145) mmol/L Anion Gap 9.60 L (10.00-18.00) mmol/L Creatinine 0.3 L (0.6-1.5) mg/dL BUN/Creatinine Ratio 57.33 H (12.00-20.00) Ratio Calcium 7.8 L (8.7-10.3) mg/dL Microbiology - Last 24 Hours (Table) 05/06/21 20:59 Blood Culture - Final Blood No Growth after 144 hours 05/06/21 20:44 Blood Culture - Final Blood No Growth after 144 hours 05/08/21 18:58 Blood Culture - Preliminary Blood No Growth after 96 hours Assessment and Plan Assessment: 1 small cell lung cancer, early SVC syndrome, status post first cycle of systemic chemotherapy using carboplatin and SALES AND RETAIL MANAGEMENT RECRUITER-16 and Tecentriq 2 neutropenic fever, improving and the white second is improved and the patient is currently afebrile 3 acute febrile illness, currently under investigation and patient continues to be on IV cefepime, cultures are negative, recovered 4 acute hypoxic respiratory failure secondary to sepsis, underlying lung cancer 5 episodic SIDH, sodium level is adequate for now 6 altered mentation secondary to sepsis 7 hypertension 8 osteoarthritis 9 latent TB back in 1996 Plan: The patient was seen and evaluated Continue antibiotics Titrate down the FiO2 as tolerated Follow-up chest x-ray in a.m. We will continue to follow I have personally seen and examined the patient, performed the documentation and the assessment and plan as written. Number of minutes spent on the visit: 10. I have personally seen and examined the patient and reviewed the documentation. I performed a joint evaluation with the nurse practitioner in this evaluation was done more than 20 minutes. I fully agree with the documentation above and the plan of care. The patient has no new complaints for now. The patient is clinically improving. Repeat chest x-ray in the morning. Recovered from the neutropenic fever. He had a left lung pneumonia for which is on IV cefepime. His sodium level is up to 132. White cell count is at 17.7.
--- NOTE | 2021-05-13 14:57 | P.PN ---
Subjective Progress Note Date: 05/13/21 This is a pleasant 70-year-old male who was recently admitted with altered mental status and per the acute delirium. Patient was recently just discharged for severe hyponatremia. Patient was evaluated by physical therapy recommending subacute rehab although patient refused at that time and wanted to go home and Homecare was being arranged. Per patient continued to be confused and more altered and so was brought back to the hospital for further evaluation. Neurology and oncology been consulted and pending. Will also consult nephrology as patient sodium continues to be low and is currently 127. Patient does have an extensive past medical history of hypertension, osteoarthritis, EtOH abuse, and also small cell lung carcinoma and is currently receiving chemo immunotherapy treatments. Patient has been on high-dose steroids with a taper of Decadron per oncology services. Patient also recently had further workup with a bronchoscopy with biopsy in March that confirmed the small cell lung carcinoma and patient also underwent PET scan and findings were extensive stage IV disease. On admission to the ER labs were found to be a WBC of 1.3, hemoglobin 10.0, platelets were 100, sodium was 126, potassium 4.7, BUN 23, creatinine 0.33, magnesium 1.8, urinalysis is negative. Patient had a CT of the brain without contrast showing no evidence of intracranial hemorrhage mass effect or midline shift the white matter is grossly preserved and there is no acute intracranial abnormality noted. Patient was admitted for further evaluation and will also have PT/OT therapy evaluate the patient and will consult case management/psychiatric social worker supervisor to evaluate for ECF. Consultations currently pending. 05/10/2021 Patient is seen and evaluated in follow-up today currently sitting up in the chair. Patient being followed closely by nephrology. Patient continues with confusion at times and recommend PT/OT evaluation for possible ECF. Oncology also following along with neurology and LS-spine MRI is ordered and pending at this time. Patient continues with low-grade fevers and is maintained on IV antibiotics and will continue. Infectious disease was consulted and pending. Patient received a dose of Samsca yesterday and sodium improved at 131 today and recommend continue with fluid restrictions and will repeat labs. 05/11/2021 Patient is seen in follow-up today no acute overnight issues noted. Multiple medical consultations including nephrology, oncology, neurology following. Infectious disease also following and patient is maintained on IV cefepime and vancomycin has been discontinued. Patient had been having low-grade temps with a T-max of 102.6 and is currently afebrile for the last 24 hours now. Sputum culture along with influenza and RSV testing currently pending. This was discussed with nursing staff and the cultures will be obtained. Patient underwent MRI of the LS spine and degenerative disc disease with facet arthropathy noted and also there were 2 nonspecific enhancing lumbosacral nerves that are negative and there is no suspicious clumping or nodular enhancement images suggest neoplastic involvement in the lumbosacral spine canal. Neurology following recommending outpatient follow-up with further EMG testing and studies is necessary. Sodium improved at 133 today and potassium found to be low at 3.2 and will replace magnesium is 1.8 today. Patient requiring 4 L of oxygen and states he does not wear oxygen in the outpatient setting and will consult pulmonary which is pending at this time. Patient denies chest pain or shortness of breath. Patient reported that he was told his oxygen saturation is low and placed on oxygen. 05/12/2021 Patient is seen in follow up and appears calm and in no distress. Patient is confused with periods of being appropriate. Patient has increased oxygen demand now at 6 L. D-dimer was elevated and CTA ordered with no evidence of PE. RSV, covid, influenza are negative. Patient is afebrile. Patient to have mri of the cervical spine today with neurology following. Possible pneumonia or viral illne ss being considered. 05/13/2021 Patient is seen and evaluated in follow-up today continues to be closely monitored with multiple medical consultations following. Patient more alert today although continues with periods of confusion. Patient currently sitting up in the chair and continues on 6 L via nasal cannula. WBC is elevated at 17.7 today possible component of recent chemotherapy versus dexamethasone use as patient is now afebrile. Physical therapy working with the patient daily patie nt continues to be weak requiring assistance although also continues to refuse rehab on discharge. Patient denying any chest pain or shortness of breath. Patient is afebrile. No report of nausea or vomiting noted and patient is tolerating diet. PT/OT to continue to follow daily. Review of systems: Constitutional: No reports of fatigue, fever, or chills Cardiovascular: No reports of chest pain or palpitations Respiratory: No reports of shortness of breath or cough GI: No reports of nausea, vomiting, or diarrhea : No reports of dysuria or retention Neurovascular: No reports of weakness or numbness All medications have been reviewed Active Medications Acetaminophen (Acetaminophen Tab 325 Mg Tab) 650 mg PO Q6HR PRN PRN Reason: Fever and/ or Pain Last Admin: 05/08/21 13:46 Dose: 650 mg Documented by: Artificial Tears (Artificial Tears-Hypromellose Drops 15 Ml Btl) 1 drops BOTH EYES DAILY PRN PRN Reason: DRY EYES Dexamethasone (Dexamethasone 2 Mg Tab) 1 mg PO DAILY [facility] Last Admin: 05/13/21 08:25 Dose: 1 mg Documented by: Folic Acid (Folic Acid 1 Mg Tab) 1 mg PO DAILY [facility] Last Admin: 05/13/21 08:25 Dose: 1 mg Documented by: Heparin Sodium (Porcine) (Heparin Sodium,Porcine/Pf 5,000 Unit/0.5 Ml Syringe) 5,000 unit SQ Q12HR [facility] Last Admin: 05/13/21 08:24 Dose: 5,000 unit Documented by: Sodium Chloride (Saline 0.9%) 1,000 mls @ 20 mls/hr IV .Q24H [facility] Last Admin: 05/12/21 20:00 Dose: 20 mls/hr Documented by: Cefepime HCl 2 gm/ Sodium (Chloride) 100 mls @ 25 mls/hr IVPB Q8H [facility]; Protocol Last Admin: 05/13/21 09:02 Dose: 25 mls/hr Documented by: Magnesium Oxide (Magnesium Oxide 400 Mg Tab) 400 mg PO DAILY [facility] Last Admin: 05/13/21 08:25 Dose: 400 mg Documented by: Miscellaneous Information (Potassium Replacement Protocol 1 Each Misc) 1 each MISCELLANE DAILY PRN; Protocol PRN Reason: Per Protocol Miscellaneous Information (Potassium Replacement Protocol 1 Each Misc) 1 each MISCELLANE DAILY PRN; Protocol PRN Reason: Per Protocol Naloxone HCl (Naloxone 0.4 Mg/Ml 1 Ml Vial) 0.2 mg IV Q2M PRN PRN Reason: Opioid Reversal Olanzapine (Olanzapine 2.5 Mg Tab) 2.5 mg PO DAILY [facility] Stop: 05/21/21 23:00 Last Admin: 05/13/21 08:25 Dose: 2.5 mg Documented by: Ondansetron HCl (Ondansetron 4 Mg Tab) 4 mg PO Q4H PRN PRN Reason: Nausea Sodium Chloride (Sodium Chloride Tab 1 Gm Tab) 1 gm PO BID [facility] Last Admin: 05/13/21 08:25 Dose: 1 gm Documented by: PHYSICAL EXAMINATION: GENERAL: The patient is alert and awake, continues to be confused at times, thin built, cachectic, ill-appearing. HEENT: Pupils are round and equally reacting to light. EOMI. does have scleral icterus. No conjunctival pallor. Normocephalic, atraumatic. No pharyngeal erythema. No thyromegaly. CARDIOVASCULAR: S1 and S2 muffled PULMONARY: diminished breath sounds bilaterally with some scattered rhonchi noted. ABDOMEN: soft. Non-tender on exam. Thin built. non-distended, normoactive bowel sounds. No palpable organomegaly. MUSCULOSKELETAL: No joint swelling or deformity. EXTREMITIES: No cyanosis, clubbing, or pedal edema. NEUROLOGICAL: Gross neurological examination did not reveal any focal deficits. Diffuse weakness SKIN: No rashes. Assessment: Acute delirium Fever, possible sepsis, present on admission Possible pneumonia elevated d-dimer with no evidence of PE on CT Acute hypoxic respiratory failure possibly secondary to stage IV lung carcinoma, requiring 4 L of oxygen Severe Gait dysfunction Generalized weakness Hyponatremia Pancytopenia Small cell lung carcinoma, receiving chemotherapy treatments Underlying COPD with extensive tobacco and cigar use history GI prophylaxis DVT prophylaxis Full code Plan: Recommend to continue with current medications and symptomatic treatment. Multiple medical consultations including neurology, nephrology, oncology following. Infectious disease following as well. Patient is maintained on IV cefepime. Pulmonary following and possible pneumonia is suspected and being worked up. Sputum cultures pending. Patient continues on 6L via NC and denies shortness of breath. Patient is confused but appears to be slightly more alert today. Neurology following and mri studies have been negative. Sodium stable and continues on fluid restrictions. PT/OT following and continues to be weak. Refusing rehab. Repeat labs ordered for am. Due to multiple complex medical issues, prognosis is guarded. The impression and plan of care has been dictated by Keren Dickson, nurse practitioner as directed. MD Tasneem I have performed a history and examination and MDM of this patient, discussed the same with the dictator, and agree with the dictator's assessment and plan as written ,documented as a scribe. Based on total visit time, I have performed more than 50% of the visit. Objective - Vital Signs Vital signs: Vital Signs Temp 98.2 F 05/13/21 05:00 Pulse 107 H 05/13/21 05:00 Resp 18 05/13/21 05:00 BP 148/73 05/13/21 05:00 Pulse Ox 91 L 05/13/21 05:00 Intake & Output 05/12/21 05/13/21 05/13/21 18:59 06:59 18:59 Intake Total 700 300 Balance 700 300 Intake: Intake, IV Titration 100 300 Amount Cefepime 2 gm In Sodium 100 100 Chloride 0.9% 100 ml @ 25 mls/hr IVPB Q8H [facility] Rx#: [id number] Sodium Chloride 0.9% 1, 200 000 ml @ 20 mls/hr IV . Q24H [facility] Rx#:[id number] Blood Product 600 Other: Voiding Method Urinal Urinal Diaper Diaper Incontinent Incontinent # Voids 3 3 - Labs CBC & Chem 7: 05/13/21 05:34 05/13/21 05:34 Labs: Abnormal Lab Results - Last 24 Hours (Table) 05/11/21 05/12/21 05/13/21 Range/Units 05:55 05:44 05:34 WBC (3.8-10.6) k/uL RBC (4.30-5.90) m/uL Hgb (13.0-17.5) gm/dL Hct (39.0-53.0) % RDW (11.5-15.5) % Blast Cells % % Neutrophils # (Manual) (1.3-7.7) k/uL Monocytes # (Manual) (0-1.0) k/uL Metamyelocytes # (Man) (0) k/uL Myelocytes # (Manual) (0) k/uL Promyelocytes # (Man) (0) k/uL Blast Cells # (Man) (0) k/uL Nucleated RBCs (0-0) /100 WBC Sodium 134 L 132 L (135-145) mmol/L Anion Gap 9.60 L (10.00-18.00) mmol/L Creatinine 0.4 L 0.3 L (0.6-1.5) mg/dL BUN/Creatinine Ratio 38.50 H 57.33 H (12.00-20.00) Ratio Hemoglobin A1c 7.2 H (0.0-6.0) % Calcium 8.0 L 7.8 L (8.7-10.3) mg/dL 05/13/21 Range/Units 05:34 WBC 17.7 H (3.8-10.6) k/uL RBC 2.76 L (4.30-5.90) m/uL Hgb 8.8 L D (13.0-17.5) gm/dL Hct 25.0 L (39.0-53.0) % RDW 15.7 H (11.5-15.5) % Blast Cells % 2 H* % Neutrophils # (Manual) 8.80 H (1.3-7.7) k/uL Monocytes # (Manual) 1.24 H (0-1.0) k/uL Metamyelocytes # (Man) 2.30 H (0) k/uL Myelocytes # (Manual) 2.12 H (0) k/uL Promyelocytes # (Man) 0.35 H (0) k/uL Blast Cells # (Man) 0.35 H (0) k/uL Nucleated RBCs 1 H (0-0) /100 WBC Sodium (135-145) mmol/L Anion Gap (10.00-18.00) mmol/L Creatinine (0.6-1.5) mg/dL BUN/Creatinine Ratio (12.00-20.00) Ratio Hemoglobin A1c (0.0-6.0) % Calcium (8.7-10.3) mg/dL Microbiology - Last 24 Hours (Table) 05/06/21 20:59 Blood Culture - Final Blood No Growth after 144 hours 05/06/21 20:44 Blood Culture - Final Blood No Growth after 144 hours 05/08/21 18:58 Blood Culture - Preliminary Blood No Growth after 96 hours
--- NOTE | 2021-05-13 17:36 | P.PN ---
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 On today's evaluation that is 05/11/2021 the patient is afebrile today, the patient is feeling slightly better, the patient is breathing comfortably patient denies having any chest pain he did have a cough that not bringing up any sputum no abdominal pain and no diarrhea Objective - Vital Signs Vital signs: Vital Signs Temp 98.4 F 05/11/21 11:19 Pulse 111 H 05/11/21 11:19 Resp 18 05/11/21 11:19 BP 148/75 05/11/21 11:19 Pulse Ox 91 L 05/11/21 11:19 Intake & Output 05/10/21 05/11/21 05/11/21 18:59 06:59 18:59 Intake Total 250 Output Total 300 Balance -50 Intake: Intake, IV Titration 100 Amount Cefepime 2 gm In Sodium 100 Chloride 0.9% 100 ml @ 25 mls/hr IVPB Q8H [facility] Rx#: [id number] Oral 150 Output: Urine 300 Other: Voiding Method Urinal Urinal Urinal Diaper Diaper Diaper Incontinent Incontinent Incontinent # Voids 2 3 - Exam GENERAL DESCRIPTION: An elderly male lying in bed in no distress RESPIRATORY SYSTEM: Unlabored breathing , decreased breath sounds at bases HEART: S1 S2 regular rate and rhythm , ABDOMEN: Soft , no tenderness EXTREMITIES: No edema feet - Labs CBC & Chem 7: 05/13/21 05:34 05/13/21 05:34 Labs: Abnormal Lab Results - Last 24 Hours (Table) 05/08/21 05/10/21 05/11/21 Range/Units 06:58 07:18 05:55 WBC 2.75 L (4.50-10.00) X 10*3/uL RBC 2.94 L (4.40-5.60) X 10*6/uL Hgb 8.9 L (13.0-17.0) g/dL Hct 27.0 L (39.6-50.0) % RDW 15.6 H (11.5-14.5) % Plt Count 82 L (140-440) X 10*3/uL Plt Count Comment DECREASED A Absolute Nucleated RBC 0.02 H (0.00-0.00) X 10*3/uL Metamyelocytes % 1 H (0-0) % Myelocytes % 3 H (0-0) % Blast Cells % (0-0) % Neutrophils # (Manual) 0.66 L (2.00-8.90) X 10*3/uL Eosinophils # (Manual) 0.03 L (0.04-0.35) X 10*3/uL NRBC/100 WBC Diff 0.7 H (0.0-0.0) /100 WBCS Pathologist Review See comment A Sodium 133 L (135-145) mmol/L Potassium 3.2 L (3.5-5.5) mmol/L Chloride 95 L (96-109) mmol/L Creatinine 0.3 L (0.6-1.5) mg/dL BUN/Creatinine Ratio 49.67 H (12.00-20.00) Ratio Calcium 8.1 L (8.7-10.3) mg/dL 05/11/21 Range/Units 05:55 WBC (4.50-10.00) X 10*3/uL RBC 2.81 L (4.40-5.60) X 10*6/uL Hgb 8.5 L (13.0-17.0) g/dL Hct 24.9 L (39.6-50.0) % RDW 15.6 H (11.5-14.5) % Plt Count 95 L (140-440) X 10*3/uL Plt Count Comment DECREASED A Absolute Nucleated RBC 0.08 H (0.00-0.00) X 10*3/uL Metamyelocytes % 6 H (0-0) % Myelocytes % 9 H (0-0) % Blast Cells % 3 H* (0-0) % Neutrophils # (Manual) (2.00-8.90) X 10*3/uL Eosinophils # (Manual) 0 L (0.04-0.35) X 10*3/uL NRBC/100 WBC Diff 1.0 H (0.0-0.0) /100 WBCS Pathologist Review Sodium (135-145) mmol/L Potassium (3.5-5.5) mmol/L Chloride (96-109) mmol/L Creatinine (0.6-1.5) mg/dL BUN/Creatinine Ratio (12.00-20.00) Ratio Calcium (8.7-10.3) mg/dL Microbiology - Last 24 Hours (Table) 05/06/21 20:59 Blood Culture - Preliminary Blood No Growth after 96 hours 05/06/21 20:44 Blood Culture - Preliminary Blood No Growth after 96 hours 05/08/21 18:58 Blood Culture - Preliminary Blood No Growth after 48 hours Assessment and Plan (1) Fever Current Visit: Yes Status: Acute Code(s): R50.9 - FEVER, UNSPECIFIED SNOMED Code(s): 420668643 Plan: 1patient with a stage IV small cell cancer right upper lobe this patient has been started on chemotherapy presented to the hospital with some mental status changes and has developed a fever with a question of possible pneumonia as no other obvious focus of infection urine has been negative abdominal soft on clinical examination no evidence of any cellulitis or joint swelling. 2we will try to obtain a sputum for Gram stain and culture. 3patient to continue with the cefepime while waiting for the cultures to finalize Time with Patient: Less than 30
--- NOTE | 2021-05-13 17:38 | P.PN ---
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 Patient did have a CT and a gram of the chest completed on 05/11/2021 with evidence of right upper lobe consolidation any increasing infiltrate On today's evaluation that is 05/12/2021 the patient remains to be afebrile, the patient is breathing comfortably patient denies having any chest pain he did have a cough that not bringing up any sputum no abdominal pain and no diarrhea Objective - Vital Signs Vital signs: Vital Signs Temp 97.8 F 05/12/21 11:22 Pulse 98 05/12/21 11:22 Resp 16 05/12/21 11:22 BP 153/83 05/12/21 11:22 Pulse Ox 93 L 05/12/21 11:22 Intake & Output 05/11/21 05/12/21 05/12/21 18:59 06:59 18:59 Intake Total 250 900 Balance 250 900 Weight 56.245 kg Intake: Intake, IV Titration 100 300 Amount Cefepime 2 gm In Sodium 100 100 Chloride 0.9% 100 ml @ 25 mls/hr IVPB Q8H [facility] Rx#: [id number] Sodium Chloride 0.9% 1, 200 000 ml @ 20 mls/hr IV . Q24H [facility] Rx#:[id number] Oral 150 600 Other: Voiding Method Urinal Urinal Urinal Diaper Diaper Diaper Incontinent Incontinent Incontinent # Voids 2 3 - Exam GENERAL DESCRIPTION: An elderly male lying in bed in no distress RESPIRATORY SYSTEM: Unlabored breathing , decreased breath sounds at bases HEART: S1 S2 regular rate and rhythm , ABDOMEN: Soft , no tenderness EXTREMITIES: No edema feet - Labs CBC & Chem 7: 05/13/21 05:34 05/13/21 05:34 Labs: Abnormal Lab Results - Last 24 Hours (Table) 05/11/21 05/11/21 05/12/21 Range/Units 05:55 14:45 05:44 D-Dimer 19.65 H (<0.60) mg/L FEU Sodium 134 L (135-145) mmol/L Creatinine 0.4 L (0.6-1.5) mg/dL BUN/Creatinine Ratio 38.50 H (12.00-20.00) Ratio Hemoglobin A1c 7.2 H (0.0-6.0) % Calcium 8.0 L (8.7-10.3) mg/dL Microbiology - Last 24 Hours (Table) 05/06/21 20:59 Blood Culture - Preliminary Blood No Growth after 120 hours 05/06/21 20:44 Blood Culture - Preliminary Blood No Growth after 120 hours 05/08/21 18:58 Blood Culture - Preliminary Blood No Growth after 72 hours Assessment and Plan (1) Fever Current Visit: Yes Status: Acute Code(s): R50.9 - FEVER, UNSPECIFIED SNOMED Code(s): 708245747 Plan: 1patient with a stage IV small cell cancer right upper lobe this patient has been started on chemotherapy presented to the hospital with some mental status changes and has developed a fever source is likely right upper lobe pneumonia as no other obvious focus of infection urine has been negative abdominal soft on clinical examination no evidence of any cellulitis or joint swelling. 2sputum culture requested but not collected 3patient fever has responded to cefepime and will continue with the cefepime while waiting for the cultures to finalize Time with Patient: Less than 30
--- NOTE | 2021-05-13 17:38 | P.PN ---
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 Patient did have a CT and a gram of the chest completed on 05/11/2021 with evidence of right upper lobe consolidation any increasing infiltrate On today's evaluation that is 05/13/2021 the patient denies any fever or any chills, the patient is breathing comfortably on nasal cannula oxygen, patient denies having any chest pain he did have a cough that not bringing up any sputum no abdominal pain and no diarrhea Objective - Vital Signs Vital signs: Vital Signs Temp 98.5 F 05/13/21 12:15 Pulse 111 H 05/13/21 12:15 Resp 14 05/13/21 12:15 BP 132/78 05/13/21 12:15 Pulse Ox 96 05/13/21 12:15 Intake & Output 05/12/21 05/13/21 05/13/21 18:59 06:59 18:59 Intake Total 700 300 Balance 700 300 Intake: Intake, IV Titration 100 300 Amount Cefepime 2 gm In Sodium 100 100 Chloride 0.9% 100 ml @ 25 mls/hr IVPB Q8H [facility] Rx#: [id number] Sodium Chloride 0.9% 1, 200 000 ml @ 20 mls/hr IV . Q24H [facility] Rx#:[id number] Blood Product 600 Other: Voiding Method Urinal Urinal Diaper Diaper Incontinent Incontinent # Voids 3 3 - Exam GENERAL DESCRIPTION: An elderly male lying in bed in no distress RESPIRATORY SYSTEM: Unlabored breathing , decreased breath sounds at bases HEART: S1 S2 regular rate and rhythm , ABDOMEN: Soft , no tenderness EXTREMITIES: No edema feet - Labs CBC & Chem 7: 05/13/21 05:34 05/13/21 05:34 Labs: Abnormal Lab Results - Last 24 Hours (Table) 05/13/21 05/13/21 05/13/21 Range/Units 05:34 05:34 10:10 WBC 17.7 H (3.8-10.6) k/uL RBC 2.76 L (4.30-5.90) m/uL Hgb 8.8 L D (13.0-17.5) gm/dL Hct 25.0 L (39.0-53.0) % RDW 15.7 H (11.5-15.5) % Blast Cells % 2 H* % Neutrophils # (Manual) 8.80 H (1.3-7.7) k/uL Monocytes # (Manual) 1.24 H (0-1.0) k/uL Metamyelocytes # (Man) 2.30 H (0) k/uL Myelocytes # (Manual) 2.12 H (0) k/uL Promyelocytes # (Man) 0.35 H (0) k/uL Blast Cells # (Man) 0.35 H (0) k/uL Nucleated RBCs 1 H (0-0) /100 WBC Sodium 132 L (135-145) mmol/L Anion Gap 9.60 L (10.00-18.00) mmol/L Creatinine 0.3 L (0.6-1.5) mg/dL BUN/Creatinine Ratio 57.33 H (12.00-20.00) Ratio Osmolality 273 L (280-301) mosm/kg Calcium 7.8 L (8.7-10.3) mg/dL Microbiology - Last 24 Hours (Table) 05/06/21 20:59 Blood Culture - Final Blood No Growth after 144 hours 05/06/21 20:44 Blood Culture - Final Blood No Growth after 144 hours 05/08/21 18:58 Blood Culture - Preliminary Blood No Growth after 96 hours Assessment and Plan (1) Fever Current Visit: Yes Status: Acute Code(s): R50.9 - FEVER, UNSPECIFIED SNOMED Code(s): 772494290 Plan: 1patient with a stage IV small cell cancer right upper lobe this patient has been started on chemotherapy presented to the hospital with some mental status changes and has developed a fever source is likely right upper lobe pneumonia as no other obvious focus of infection urine has been negative abdominal soft on clinical examination no evidence of any cellulitis or joint swelling. 2sputum culture requested but not collected 3patient seemed to have clinically responded to cefepime which will be continued while waiting for the cultures to finalize Time with Patient: Less than 30
--- NOTE | 2021-05-13 18:24 | P.PN ---
Subjective Progress Note Date: 05/13/21 patient appeared comfortable at rest, on nasal cannula. No fever today. No nausea or vomiting. He continued to have difficulty with orientation and could not tell me the exact month. However he was more alert and responsive today and appear to be well oriented to self. Objective - Vital Signs Vital signs: Vital Signs Temp 98.5 F 05/13/21 12:15 Pulse 111 H 05/13/21 12:15 Resp 14 05/13/21 12:15 BP 132/78 05/13/21 12:15 Pulse Ox 96 05/13/21 12:15 Intake & Output 05/12/21 05/13/21 05/13/21 18:59 06:59 18:59 Intake Total 700 300 780 Balance 700 300 780 Intake: Intake, IV Titration 100 300 Amount Cefepime 2 gm In Sodium 100 100 Chloride 0.9% 100 ml @ 25 mls/hr IVPB Q8H [facility] Rx#: [id number] Sodium Chloride 0.9% 1, 200 000 ml @ 20 mls/hr IV . Q24H [facility] Rx#:[id number] Oral 780 Blood Product 600 Other: Voiding Method Urinal Urinal Urinal Diaper Diaper Diaper Incontinent Incontinent Incontinent # Voids 3 3 3 - Constitutional General appearance: Present: no acute distress - EENT Eyes: Present: EOMI ENT: Present: hearing grossly normal, normal oropharynx - Respiratory Respiratory: bilateral: diminished - Cardiovascular Rhythm: regular Heart sounds: normal: S1, S2 - Gastrointestinal General gastrointestinal: Present: normal bowel sounds, soft - Integumentary Integumentary: Present: normal - Neurologic Neurologic: Present: CNII-XII intact - Musculoskeletal Musculoskeletal: Present: generalized weakness, strength equal bilaterally - Psychiatric Psychiatric Comment(s): the patient was more alert and responsive today. He was still confused about the date and was unable to answer questions in that regard accurately. However his responses to other questions related to self, such as address both etc. were quite appropriate. He also had diminished recall regarding details of his t reatment - Labs CBC & Chem 7: 05/13/21 05:34 05/13/21 05:34 Labs: Abnormal Lab Results - Last 24 Hours (Table) 05/13/21 05/13/21 05/13/21 Range/Units 05:34 05:34 10:10 WBC 17.7 H (3.8-10.6) k/uL RBC 2.76 L (4.30-5.90) m/uL Hgb 8.8 L D (13.0-17.5) gm/dL Hct 25.0 L (39.0-53.0) % RDW 15.7 H (11.5-15.5) % Blast Cells % 2 H* % Neutrophils # (Manual) 8.80 H (1.3-7.7) k/uL Monocytes # (Manual) 1.24 H (0-1.0) k/uL Metamyelocytes # (Man) 2.30 H (0) k/uL Myelocytes # (Manual) 2.12 H (0) k/uL Promyelocytes # (Man) 0.35 H (0) k/uL Blast Cells # (Man) 0.35 H (0) k/uL Nucleated RBCs 1 H (0-0) /100 WBC Sodium 132 L (135-145) mmol/L Anion Gap 9.60 L (10.00-18.00) mmol/L Creatinine 0.3 L (0.6-1.5) mg/dL BUN/Creatinine Ratio 57.33 H (12.00-20.00) Ratio Osmolality 273 L (280-301) mosm/kg Calcium 7.8 L (8.7-10.3) mg/dL Microbiology - Last 24 Hours (Table) 05/06/21 20:59 Blood Culture - Final Blood No Growth after 144 hours 05/06/21 20:44 Blood Culture - Final Blood No Growth after 144 hours 05/08/21 18:58 Blood Culture - Preliminary Blood No Growth after 96 hours Assessment and Plan (1) Acute delirium Narrative/Plan: this is overall improved significantly. There has however been intermittent worsening. Case was discussed in detail with the patient and subsequently his family. MRI of the brain did not show any parenchymal lesions. Leptomeningeal disease was a consideration, but his clinical picture is not consistent with that. Typically patient with small cell cancer related to meningeal involvement would have fairly rapid progression - It was therefore felt that this is more likely multifactorial. Patient may have had some underlying dementia. Family confirmed that he had been having some confusion and difficulty with recall even before starting chemotherapy wh ich they feel was due to "feeling overwhelmed". They're in agreement that there may have been some mild underlying dementia, made worse by other factors such as chemotherapy, hypoxia and infection, as well as fluctuations in his sodium. - As noted, the patient did appear to be improved today. Continue to monitor Current Visit: Yes Status: Acute Priority: High Code(s): R41.0 - DISORIENTATION, UNSPECIFIED SNOMED Code(s): 5091504 (2) Fever Narrative/Plan: felt to be likely due to pneumonia, with significant infiltrate in the left lower lobe. Currently afebrile, continuing on antibiotics with pulmonary medicine and ID following. Current Visit: Yes Status: Acute Code(s): R50.9 - FEVER, UNSPECIFIED SNOMED Code(s): 324309951 (3) Small cell lung cancer Narrative/Plan: discussed in detail with the family, at patient's request. If the patient continues to improve, the plan will be to resume chemotherapy as an outpatient either next week or the week after. His CT scans were discussed with pulmonary medicine, confirmed that there is no progression of malignancy and he may be starting to actually show a response Current Visit: Yes Status: Acute Priority: High Code(s): C34.90 - MALIGNANT NEOPLASM OF UNSP PART OF UNSP BRONCHUS OR LUNG SNOMED Code(s): 277936252 (4) Pancytopenia Narrative/Plan: WBC and platelets have recovered. Hemoglobin is in a safe range at 8.8. Continue to monitor. Due to antineoplastic chemotherapy. Current Visit: Yes Status: Acute Priority: Medium Code(s): D61.818 - OTHER PANCYTOPENIA SNOMED Code(s): 211057668
[2021-05-13] MEDS: SODIUM CHLORIDE 0.9% 1,000 ML IV SCH (20:37)
[2021-05-14] MEDS: CEFEPIME 2 GM in SODIUM CHLORIDE 0.9% 100 ML IVPB SCH ×2 (01:24→11:05)
--- NOTE | 2021-05-14 08:29 | XR ---
EXAMINATION TYPE: XR chest 2V DATE OF EXAM: 05/14/2021 COMPARISON: Chest x-ray 6 days ago. CTA chest 3 days ago and older studies. HISTORY: Pneumonia. History of right lung cancer. TECHNIQUE: Frontal and lateral views of the chest are obtained. FINDINGS: Background chronic emphysematous change with continued worsening confluent left lung retic ulonodular opacities. Persistent suspicious anterior right upper lung nodule or neoplasm . The cardia c silhouette size remains within normal limits. The osseous structures are intact. IMPRESSION: Continued Worsening left lung diffuse edema and/or infiltrates.
[2021-05-14] MEDS: dexAMETHasone 2 MG TAB PO SCH (08:50)
[2021-05-14] MEDS: HEPARIN SODIUM,PORCINE/PF 5,000 UNIT/0.5 ML SYRINGE SQ SCH ×2 (08:50→20:15)
[2021-05-14] MEDS: FOLIC ACID 1 MG TAB PO SCH (08:50)
[2021-05-14] MEDS: MAGNESIUM OXIDE 400 MG TAB PO SCH (08:50)
[2021-05-14] MEDS: OLANZapine 2.5 MG TAB PO SCH (08:51)
[2021-05-14] MEDS: SODIUM CHLORIDE TAB 1 GM TAB PO SCH (08:52)
[2021-05-14 09:33] LABS: African American GFR (CKD) 154.8 (60.0-200.0); BUN/Creat Ratio 60.33 Ratio (12.00-20.00); Blood Urea Nitrogen 18.1 mg/dL (9.0-27.0); Calcium 7.8 mg/dL (8.7-10.3); Carbon Dioxide 25.3 mmol/L (20.0-27.5); Chloride 97 mmol/L (96-109); Glucose 109 mg/dL (70-110); Non-African American GFR(CKD) 133.6 (60.0-200.0); Potassium 3.6 mmol/L (3.5-5.5); Sodium 134 mmol/L (135-145)
[2021-05-14 09:55] LABS: HCT 25.7 % (39.6-50.0); HGB 8.7 g/dL (13.0-17.0); MCH 30.9 pg (27.0-32.0); MCHC 33.9 g/dL (32.0-37.0); MCV 91.1 fL (80.0-97.0); Mean Platelet Volume 10.6 fL (9.5-12.2); NRBC Per 100 WBC 1.6 /100 WBCS (0.0-0.0); Platelet Count 176 X 10*3/uL (140-440); RBC 2.82 X 10*6/uL (4.40-5.60); RDW 15.9 % (11.5-14.5); WBC 22.76 X 10*3/uL (4.50-10.00)
[2021-05-14] MEDS ORDERED: POTASSIUM CHLORIDE ER 20 MEQ TAB.ER PO STA (10:22)
[2021-05-14] MEDS ORDERED: FUROSEMIDE 10 MG/ML 2 ML VIAL IV ONE (10:22)
--- NOTE | 2021-05-14 10:23 | P.PN ---
Subjective Patient is seen in follow-up for hyponatremia. Sodium level 134. Oral intake fair. Denies excessive fluid intake. No vomiting or diarrhea. Blood pressure stable. On 6 L nasal cannula. Feels weak. Vital signs are stable. General: Awake. On nasal cannula. HEENT: Head exam is unremarkable. LUNGS: Breath sounds decreased. Scattered wheezing. HEART: Rate and Rhythm are regular. ABDOMEN: Soft, no distention. EXTREMITITES: No edema. Objective - Vital Signs Vital signs: Vital Signs Temp 97.8 F 05/14/21 03:55 Pulse 109 H 05/14/21 03:55 Resp 20 05/14/21 03:55 BP 157/87 05/14/21 03:55 Pulse Ox 85 L 05/14/21 08:33 Intake & Output 05/13/21 05/14/21 05/14/21 18:59 06:59 18:59 Intake Total 780 700 Output Total 600 Balance 780 100 Intake: Intake, IV Titration 400 Amount Cefepime 2 gm In Sodium 200 Chloride 0.9% 100 ml @ 25 mls/hr IVPB Q8H [facility] Rx#: [id number] Sodium Chloride 0.9% 1, 200 000 ml @ 20 mls/hr IV . Q24H [facility] Rx#:[id number] Oral 780 300 Output: Urine 600 Other: Voiding Method Urinal Urinal Diaper Diaper Incontinent Incontinent # Voids 3 - Labs CBC & Chem 7: 05/14/21 06:45 05/14/21 06:45 Labs: Abnormal Lab Results - Last 24 Hours (Table) 05/13/21 05/14/21 05/14/21 Range/Units 10:10 06:45 06:45 WBC 22.76 H (4.50-10.00) X 10*3/uL RBC 2.82 L (4.40-5.60) X 10*6/uL Hgb 8.7 L (13.0-17.0) g/dL Hct 25.7 L (39.6-50.0) % RDW 15.9 H (11.5-14.5) % Absolute Nucleated RBC 0.37 H (0.00-0.00) X 10*3/uL NRBC/100 WBC Diff 1.6 H (0.0-0.0) /100 WBCS Sodium 134 L (135-145) mmol/L Creatinine 0.3 L (0.6-1.5) mg/dL BUN/Creatinine Ratio 60.33 H (12.00-20.00) Ratio Osmolality 273 L (280-301) mosm/kg Calcium 7.8 L (8.7-10.3) mg/dL Microbiology - Last 24 Hours (Table) 05/08/21 18:58 Blood Culture - Preliminary Blood No Growth after 120 hours Assessment and Plan Plan: Assessment: 1. Hyponatremia secondary to SIADH. [place] [facility] [place]. Sodium level 134. Urine osmolality 960. TSH normal. 2. Small cell lung cancer. 3. Generalized debility. 4. Hypokalemia from poor intake. Replaced. 5. Fever. Recently started on chemotherapy. Concern for pneumonia. CTA done 05/11/2021 showed extensive pulmonary infiltrates. Mediastinal and bronchial adenopathy consistent with tumor was present. ID following. On antibiotics. 6. Mild hypomagnesemia from poor intake. On oral magnesium oxide.. Plan: 1500 ml fluid restriction. Stop salt tabs. Lasix 20 mg IV once today. Encourage protein intake. No PE or DVT noted on CTA and venous Doppler study. Replace potassium.
[2021-05-14 11:38] LABS: Band Neutrophils % 11 %; Basophils # (M) 0 X 10*3/uL (0.00-0.10); Eosinophils # (M) 0 X 10*3/uL (0.04-0.35); Lymphocytes # (M) 1.82 X 10*3/uL (0.90-5.00); Metamyelocytes % 9 % (0-0); Monocytes # (M) 0.68 X 10*3/uL (0.20-1.00); Myelocytes % 15 % (0-0); Neutrophils # (M) 13.88 X 10*3/uL (2.00-8.90); Neutrophils % (M) 50 %; Promyelocytes % 3 % (0-0)
--- NOTE | 2021-05-14 13:25 | P.PN ---
Subjective Progress Note Date: 05/14/21 This is a 68-year-old male patient is known to me. 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 I establish his diagnosis through bronchoscopy and endobronchial ultrasound with no fine-needle aspirate. The patient also was having issues with hyponatremia with a sodium was dropping consistent with underlying SIADH. He was in the hospital on 05/01/2021 after the had a sodium level 113 and the patient had a witnessed seizure. He was in the intensive care unit. CAT scan of the brain was completed and it showed no evidence of any FRAME STYLIST metastases. His chest x-ray was still showing a right hilar mass and the patient was subjected to fluid restriction, hypertonic saline at patient was discharged home to be readmitted within 48 hours because of altered mentation. The patient was accordingly admitted again to the hospital. The patient was found to be febrile and the patient was treated for neutropenic fever. Noted the patient has already received a first session of systemic chemotherapy on 04/28/2021 and he completed that on 04/30/2021. MRI of the brain with and without contrast done on 03/27/2021 showed moderate atrophy. No evidence of any metastases. For now, the patient is on the oncology floor. He is being followed up by oncology, neurology and nephrology. The patient had a temperature of 102.6 and initially the patient was covered with a combination of antibiotics including cefepime and vancomycin. Subsequently, infectious disease discontinued the vancomycin and the patient is only on IV cefepime for now.. MRI of the lumbosacral spine showed degenerative disc disease and facet arthropathy and some nonspecific enhancing lumbosacral nerves that may be vascular but it is indeterminate. Note that the patient's fever has broken the patient has been afebrile over the past 24 hours. Nevertheless, he is slightly tachycardic. His white cell count during this current admission was as low as 1.2 and currently is up to 7.6. Hemoglobin is at 8.5. Platelet count is at 95. His d-dimer was at 19.6. BUN is at 14 with a creatinine of 0.3, and the sodium level of 133. The blood cultures been negative. The urine culture has been negative. The patient was given zarxio The patient is seen today 05/12/2021 in follow-up on the regular medical floor. He is currently resting in bed. Awake and alert in no acute distress. More oriented today compared to yesterday. He is maintaining O2 saturation in the low 90s on 6 L high flow nasal cannula. He's been afebrile. Hemodynamically stable. Dopplers of the lower extremities negative for DVT. CT angiogram ruled out pulmonary embolism. There is extensive pulmonary infiltrates. Massive mediastinal bronchial adenopathy consistent with tumor. Pulmonary infiltrates significantly increased compared to recent PET scan on 04/16/2021. Could represent lymphangitic metastatic disease in the left lung. Right upper lobe masslike infiltrate without change. MRI of the cervical spine revealed stable appearance of the cervical spine with reversal of the normal cervical lordosis, disc desiccation with disc bulging and multilevel central stenosis. No enhancing lesions of the cervical spine. Right supra-clavicular adenopathy. Blood cultures reveal no growth to date. Urine culture no growth. D-dimer 19.6. Sodium 134. Potassium 3.7. Bicarb 24. BUN 15. Creatinine 0.4. In fluenza screen negative. RSV negative. COVID-19 screen negative. He is continued on heparin for DVT prophylaxis. Antibiotics in the form of cefepime. Remains on dexamethasone 1 mg daily. The patient is seen today 05/13/2021 in follow-up on the regular medical floor. He is resting comfortably in bed. Awake and alert in no acute distress. More oriented today compared to yesterday. He denies any worsening shortness of breath, cough or congestion. The cultures reveal no growth. Urine culture revealed no growth. Follow-up blood cultures revealed no growth. White count 17.7. Hemoglobin 8.8. Platelets 152. Sodium 137. Potassium 3.5. BUN 17. Creatinine 0.3. He is continued on cefepime, dexamethasone. Heparin for DVT prophylaxis. The patient is seen today 05/14/2021 in follow-up on the regular medical floor. He is currently resting in bed. Awake and alert. Some issues with oxygen desaturations he was found with his oxygen off at one point with O2 saturation at 56%. He is currently at 92% on 6 L high flow nasal cannula. Chest x-ray reveals continued worsening left lung diffuse edema/infiltrates. Persistent right upper lobe lung nodule. Blood cultures revealing no growth. Urine culture no growth. Follow-up blood culture no growth. White count 22.7. Hemoglobin 8.7. Sodium 134. Potassium 3.6. Creatinine 0.3. Urine osmolality 960. He is continued on cefepime. Objective - Vital Signs Vital signs: Vital Signs Temp 97.7 F 05/14/21 11:09 Pulse 105 H 05/14/21 11:09 Resp 20 05/14/21 11:09 BP 138/77 05/14/21 11:09 Pulse Ox 90 L 05/14/21 11:09 Intake & Output 05/13/21 05/14/21 05/14/21 18:59 06:59 18:59 Intake Total 780 700 Output Total 600 Balance 780 100 Weight 56.245 kg Intake: Intake, IV Titration 400 Amount Cefepime 2 gm In Sodium 200 Chloride 0.9% 100 ml @ 25 mls/hr IVPB Q8H [facility]G Rx#: [id number] Sodium Chloride 0.9% 1, 200 000 ml @ 20 mls/hr IV . Q24H SUNG Rx#:[id number] Oral 780 300 Output: Urine 600 Other: Voiding Method Urinal Urinal Urinal Diaper Diaper Diaper Incontinent Incontinent Incontinent # Voids 3 - Exam GENERAL EXAM: Alert, pleasant, frail 70-year-old male patient, on 6 L of nasal cannula HEAD: Normocephalic/atraumatic. EYES: Normal reaction of pupils, equal size. Conjunctiva pink, sclera white. NOSE: Clear with pink turbinates. THROAT: No erythema or exudates. NECK: No masses, no JVD, no thyroid enlargement, no adenopathy. CHEST: No chest wall deformity. Symmetrical expansion. LUNGS: Equal air entry with bilateral scattered rhonchi CVS: Regular rate and rhythm, normal S1 and S2, no gallops, no murmurs, no rubs ABDOMEN: Soft, nontender. No hepatosplenomegaly, normal bowel sounds, no guarding or rigidity. EXTREMITIES: No clubbing, no edema, no cyanosis, 2+ pulses and upper and lower extremities. MUSCULOSKELETAL: Muscle strength and tone normal. SPINE: No scoliosis or deformity SKIN: No rashes CENTRAL NERVOUS SYSTEM: Alert and occasionally confused. No focal deficits, tone is normal in all 4 extremities. No neck stiffness PSYCHIATRIC: Alert and oriented -3. Appropriate affect. Intact judgment and insight. - Labs CBC & Chem 7: 05/14/21 06:45 05/14/21 06:45 Labs: Abnormal Lab Results - Last 24 Hours (Table) 05/14/21 05/14/21 Range/Units 06:45 06:45 WBC 22.76 H (4.50-10.00) X 10*3/uL RBC 2.82 L (4.40-5.60) X 10*6/uL Hgb 8.7 L (13.0-17.0) g/dL Hct 25.7 L (39.6-50.0) % RDW 15.9 H (11.5-14.5) % Absolute Nucleated RBC 0.37 H (0.00-0.00) X 10*3/uL Metamyelocytes % 9 H (0-0) % Myelocytes % 15 H (0-0) % Promyelocytes % 3 H (0-0) % Blast Cells % 1 H* (0-0) % Neutrophils # (Manual) 13.88 H (2.00-8.90) X 10*3/uL Eosinophils # (Manual) 0 L (0.04-0.35) X 10*3/uL NRBC/100 WBC Diff 1.6 H (0.0-0.0) /100 WBCS Sodium 134 L (135-145) mmol/L Creatinine 0.3 L (0.6-1.5) mg/dL BUN/Creatinine Ratio 60.33 H (12.00-20.00) Ratio Calcium 7.8 L (8.7-10.3) mg/dL Microbiology - Last 24 Hours (Table) 05/08/21 18:58 Blood Culture - Preliminary Blood No Growth after 120 hours Assessment and Plan Assessment: 1 small cell lung cancer, early SVC syndrome, status post first cycle of systemic chemotherapy using carboplatin and [employer]-16 and Tecentriq 2 neutropenic fever, improving currently afebrile 3 acute febrile illness, Suspect secondary to underlying pneumonia more so on the left lung him a currently on cefepime 4 acute hypoxic respiratory failure secondary to sepsis, underlying lung cancer 5 episodic SIDH, sodium level is adequate for now 6 altered mentation secondary to sepsis 7 hypertension 8 osteoarthritis 9 latent TB back in 1996 Plan: The patient was seen and evaluated Chest x-ray and labs reviewed Monitor closely to assure oxygen remains on Continue antibiotics Titrate down the FiO2 as tolerated We will continue to follow I have personally seen and examined the patient, performed the documentation and the assessment and plan as written. Number of minutes spent on the visit: 10. I have personally seen and examined the patient and reviewed the documentation. I performed a joint evaluation with the nurse practitioner in this evaluation was done more than 20 minutes. I fully agree with the documentation above and the plan of care.. I have personally to this patient along with the nurse practitioner. The patient's chest x-ray showing extensive left lung consolidati on consistent with a pneumonia. The patient remains on IV cefepime. We'll add vancomycin. We will add Levaquin. We'll obtain since that the blood cultures. Check a pro-calcitonin level. Monitored oxygenation. Transfer this patient ICU for further monitoring. This evaluation was done on multiple levels. We went back and evaluate this patient as the patient was getting more short of breath. At that point, we decided to transfer him back to the ICU.
--- NOTE | 2021-05-14 16:25 | P.PN ---
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 Patient did have a CT and a gram of the chest completed on 05/11/2021 with evidence of right upper lobe consolidation any increasing infiltrate On today's evaluation that is 05/14/2021 the patient remains to be afebrile, the patient is breathing comfortably currently on 6 L nasal cannula oxygen, patient denies having any chest pain he did have a cough but not bringing up any sputum , the patient denies abdominal pain and no diarrhea Objective - Vital Signs Vital signs: Vital Signs Temp 98.6 F 05/14/21 13:15 Pulse 98 05/14/21 13:15 Resp 14 05/14/21 13:15 BP 134/76 05/14/21 13:15 Pulse Ox 95 05/14/21 13:15 Intake & Output 05/13/21 05/14/21 05/14/21 18:59 06:59 18:59 Intake Total 780 700 Output Total 600 Balance 780 100 Weight 56.245 kg Intake: Intake, IV Titration 400 Amount Cefepime 2 gm In Sodium 200 Chloride 0.9% 100 ml @ 25 mls/hr IVPB Q8H [facility]G Rx#: [id number] Sodium Chloride 0.9% 1, 200 000 ml @ 20 mls/hr IV . Q24H SUNG Rx#:[id number] Oral 780 300 Output: Urine 600 Other: Voiding Method Urinal Urinal Urinal Diaper Diaper Diaper Incontinent Incontinent Incontinent # Voids 3 - Exam GENERAL DESCRIPTION: An elderly male lying in bed in no distress RESPIRATORY SYSTEM: Unlabored breathing , decreased breath sounds at bases HEART: S1 S2 regular rate and rhythm , ABDOMEN: Soft , no tenderness EXTREMITIES: No edema feet - Labs CBC & Chem 7: 05/14/21 06:45 05/14/21 06:45 Labs: Abnormal Lab Results - Last 24 Hours (Table) 05/14/21 05/14/21 Range/Units 06:45 06:45 WBC 22.76 H (4.50-10.00) X 10*3/uL RBC 2.82 L (4.40-5.60) X 10*6/uL Hgb 8.7 L (13.0-17.0) g/dL Hct 25.7 L (39.6-50.0) % RDW 15.9 H (11.5-14.5) % Absolute Nucleated RBC 0.37 H (0.00-0.00) X 10*3/uL Metamyelocytes % 9 H (0-0) % Myelocytes % 15 H (0-0) % Promyelocytes % 3 H (0-0) % Blast Cells % 1 H* (0-0) % Neutrophils # (Manual) 13.88 H (2.00-8.90) X 10*3/uL Eosinophils # (Manual) 0 L (0.04-0.35) X 10*3/uL NRBC/100 WBC Diff 1.6 H (0.0-0.0) /100 WBCS Sodium 134 L (135-145) mmol/L Creatinine 0.3 L (0.6-1.5) mg/dL BUN/Creatinine Ratio 60.33 H (12.00-20.00) Ratio Calcium 7.8 L (8.7-10.3) mg/dL Microbiology - Last 24 Hours (Table) 05/08/21 18:58 Blood Culture - Preliminary Blood No Growth after 120 hours Assessment and Plan (1) Fever Current Visit: Yes Status: Acute Code(s): R50.9 - FEVER, UNSPECIFIED SNOMED Code(s): 012338198 Plan: 1patient with a stage IV small cell cancer right upper lobe this patient has been started on chemotherapy presented to the hospital with some mental status changes and has developed a fever source is likely right upper lobe pneumonia as no other obvious focus of infection urine has been negative abdominal soft on clinical examination no evidence of any cellulitis or joint swelling. 2sputum culture requested but not collected 3patient did have slight worsening on the chest x-ray white count is elevated as well as antibiotic will be switched to Zosyn and will monitor clinical course closely Time with Patient: Less than 30
[2021-05-14] MEDS ORDERED: VANCOMYCIN IV PER PHARMACY 1 EACH MISC MISCELLANE PRN (16:52)
--- NOTE | 2021-05-14 16:59 | XR ---
EXAMINATION TYPE: XR chest 1V DATE OF EXAM: 05/14/2021 COMPARISON: Today HISTORY: Short of breath TECHNIQUE: Single view FINDINGS: There is diffuse interstitial and airspace infiltrate throughout the left lung. There is sl ight interstitial infiltrate in the right lung. Heart size is normal. No heart failure. No evidence o f any significant pleural fluid. IMPRESSION: Diffuse infiltrate in the left lung not significantly different than exam this morning. T his could be lymphangitic metastatic disease.
[2021-05-14] MEDS ORDERED: VANCOMYCIN 1,000 MG in SODIUM CHLORIDE 0.9% 250 ML IVPB ONE (17:30)
[2021-05-14] MEDS: PIPERACILLIN-TAZOBACTAM 3.375 GM in SODIUM CHLORIDE 0.9% 100 ML IVPB SCH ×2 (17:50→23:46)
--- NOTE | 2021-05-14 19:32 | P.PN ---
Subjective Progress Note Date: 05/14/21 Principal diagnosis: SOB Patient was seen and evaluated by Dr. Dias this afternoon, the patient was experiencing increased lethargy, shortness of breath and hypoxia. Objective - Vital Signs Vital signs: Vital Signs Temp 97.8 F 05/14/21 17:39 Pulse 103 H 05/14/21 19:00 Resp 17 05/14/21 19:00 BP 120/77 05/14/21 19:00 Pulse Ox 100 05/14/21 19:00 Intake & Output 05/14/21 05/14/21 05/15/21 06:59 18:59 06:59 Intake Total 700 50 195 Output Total 600 Balance 100 50 195 Weight 56.245 kg Intake: IV 20 Sodium Chloride 0.9% 1, 20 000 ml @ 20 mls/hr IV . Q24H [facility] Rx#:[id number] Intake, IV Titration 400 175 Amount Cefepime 2 gm In Sodium 200 Chloride 0.9% 100 ml @ 25 mls/hr IVPB Q8H [facility] Rx#: [id number] Piperacillin-Tazobactam 3 50 .375 gm In Sodium Chloride 0.9% 100 ml @ 25 mls/hr IVPB Q8HR [facility] Rx# :[id number] Sodium Chloride 0.9% 1, 200 000 ml @ 20 mls/hr IV . Q24H [facility] Rx#:[id number] Vancomycin 1,000 mg In 125 Sodium Chloride 0.9% 250 ml @ 125 mls/hr IVPB Q8HR [facility]G Rx#:[id number] Oral 300 50 Output: Urine 600 Other: Voiding Method Urinal Urinal Diaper Diaper Incontinent - Exam Increased Lethargy Increased Respiratory effort and SOB Increased confusion today - Labs CBC & Chem 7: 05/14/21 06:45 05/14/21 06:45 Labs: Abnormal Lab Results - Last 24 Hours (Table) 05/14/21 05/14/21 05/14/21 Range/Units 05:35 06:45 06:45 WBC 22.76 H (4.50-10.00) X 10*3/uL RBC 2.82 L (4.40-5.60) X 10*6/uL Hgb 8.7 L (13.0-17.0) g/dL Hct 25.7 L (39.6-50.0) % RDW 15.9 H (11.5-14.5) % Absolute Nucleated RBC 0.37 H (0.00-0.00) X 10*3/uL Metamyelocytes % 9 H (0-0) % Myelocytes % 15 H (0-0) % Promyelocytes % 3 H (0-0) % Blast Cells % 1 H* (0-0) % Neutrophils # (Manual) 13.88 H (2.00-8.90) X 10*3/uL Eosinophils # (Manual) 0 L (0.04-0.35) X 10*3/uL NRBC/100 WBC Diff 1.6 H (0.0-0.0) /100 WBCS Sodium 134 L (135-145) mmol/L Creatinine 0.3 L (0.6-1.5) mg/dL BUN/Creatinine Ratio 60.33 H (12.00-20.00) Ratio Calcium 7.8 L (8.7-10.3) mg/dL Ur Random Sodium 226 H (40-220) mmol/L Microbiology - Last 24 Hours (Table) 05/08/21 18:58 Blood Culture - Preliminary Blood No Growth after 120 hours Assessment and Plan (1) Acute delirium Current Visit: Yes Status: Acute Priority: High Code(s): R41.0 - DISORIENTATION, UNSPECIFIED SNOMED Code(s): 9742273 (2) Pancytopenia Current Visit: Yes Status: Acute Priority: Medium Code(s): D61.818 - OTHER PANCYTOPENIA SNOMED Code(s): 018249364 (3) Hyponatremia Current Visit: No Status: Acute Priority: High Code(s): E87.1 - HYPO-OSMOLALITY AND HYPONATREMIA SNOMED Code(s): 05950560 (4) Lung cancer Current Visit: No Status: Acute Code(s): C34.90 - MALIGNANT NEOPLASM OF UNSP PART OF UNSP BRONCHUS OR LUNG SNOMED Code(s): 155638413 (5) SIADH (syndrome of inappropriate ADH production) Current Visit: No Status: Acute Priority: Medium Code(s): E22.2 - SYNDROME OF INAPPROPRIATE SECRETION OF ANTIDIURETIC HORMONE SNOMED Code(s): 16879738 Plan: Assessment and Plan (1) Acute delirium Narrative/Plan: Unfortunetly he has progressively worsened the past few hours, including worsening hypoxia and shortness of breath Testerday Dr. Dias did discuss case was discussed in detail with the patient and subsequently his family. MRI of the brain did not show any parenchymal lesions. Leptomeningeal disease was a consideration, but his clinical picture was not consistent with that, if no other progressive objective signs found after further imaginf, may need to reconsider this assessment. Typically patient with small cell cancer related to meningeal involvement would have fairly rapid progression Current Visit: Yes Status: Acute Priority: High Code(s): R41.0 - DISORIENTATION, UNSPECIFIED SNOMED Code(s): 5794060 (2) Fever Narrative/Plan: Currently afebrile, continuing on antibiotics with pulmonary medicine and ID following. Current Visit: Yes Status: Acute Code(s): R50.9 - FEVER, UNSPECIFIED SNOMED Code(s): 048201957 (3) Small cell lung cancer Narrative/Plan: Dr. Dias has updated and discussed in detail with the family. Concern of progression with latest change in status, overall prognosis guarded Current Visit: Yes Status: Acute Priority: High Code(s): C34.90 - MALIGNANT NEOPLASM OF UNSP PART OF UNSP BRONCHUS OR LUNG SNOMED Code(s): 915659411 Doctor attests: I performed a history and physical examination of this patient, developed impression and plan of care, discussed with dictator. I agree with dictators note, documented as a scribe.
--- NOTE | 2021-05-14 23:43 | P.PN ---
Subjective Progress Note Date: 05/14/21 This is a pleasant 70-year-old male who was recently admitted with altered mental status and per the acute delirium. Patient was recently just discharged for severe hyponatremia. Patient was evaluated by physical therapy recommending subacute rehab although patient refused at that time and wanted to go home and Homecare was being arranged. Per patient continued to be confused and more altered and so was brought back to the hospital for further evaluation. Neurology and oncology been consulted and pending. Will also consult nephrology as patient sodium continues to be low and is currently 127. Patient does have an extensive past medical history of hypertension, osteoarthritis, EtOH abuse, and also small cell lung carcinoma and is currently receiving chemo immunotherapy treatments. Patient has been on high-dose steroids with a taper of Decadron per oncology services. Patient also recently had further workup with a bronchoscopy with biopsy in March that confirmed the small cell lung carcinoma and patient also underwent PET scan and findings were extensive stage IV disease. On admission to the ER labs were found to be a WBC of 1.3, hemoglobin 10.0, platelets were 100, sodium was 126, potassium 4.7, BUN 23, creatinine 0.33, magnesium 1.8, urinalysis is negative. Patient had a CT of the brain without contrast showing no evidence of intracranial hemorrhage mass effect or midline shift the white matter is grossly preserved and there is no acute intracranial abnormality noted. Patient was admitted for further evaluation and will also have PT/OT therapy evaluate the patient and will consult case management/clinical social worker to evaluate for ECF. Consultations currently pending. 05/10/2021 Patient is seen and evaluated in follow-up today currently sitting up in the chair. Patient being followed closely by nephrology. Patient continues with confusion at times and recommend PT/OT evaluation for possible ECF. Oncology also following along with neurology and LS-spine MRI is ordered and pending at this time. Patient continues with low-grade fevers and is maintained on IV antibiotics and will continue. Infectious disease was consulted and pending. Patient received a dose of Samsca yesterday and sodium improved at 131 today and recommend continue with fluid restrictions and will repeat labs. 05/11/2021 Patient is seen in follow-up today no acute overnight issues noted. Multiple medical consultations including nephrology, oncology, neurology following. Infectious disease also following and patient is maintained on IV cefepime and vancomycin has been discontinued. Patient had been having low-grade temps with a T-max of 102.6 and is currently afebrile for the last 24 hours now. Sputum culture along with influenza and RSV testing currently pending. This was discussed with nursing staff and the cultures will be obtained. Patient underwent MRI of the LS spine and degenerative disc disease with facet arthropathy noted and also there were 2 nonspecific enhancing lumbosacral nerves that are negative and there is no suspicious clumping or nodular enhancement images suggest neoplastic involvement in the lumbosacral spine canal. Neurology following recommending outpatient follow-up with further EMG testing and studies is necessary. Sodium improved at 133 today and potassium found to be low at 3.2 and will replace magnesium is 1.8 today. Patient requiring 4 L of oxygen and states he does not wear oxygen in the outpatient setting and will consult pulmonary which is pending at this time. Patient denies chest pain or shortness of breath. Patient reported that he was told his oxygen saturation is low and placed on oxygen. 05/12/2021 Patient is seen in follow up and appears calm and in no distress. Patient is confused with periods of being appropriate. Patient has increased oxygen demand now at 6 L. D-dimer was elevated and CTA ordered with no evidence of PE. RSV, covid, influenza are negative. Patient is afebrile. Patient to have mri of the cervical spine today with neurology following. Possible pneumonia or viral illne ss being considered. 05/13/2021 Patient is seen and evaluated in follow-up today continues to be closely monitored with multiple medical consultations following. Patient more alert today although continues with periods of confusion. Patient currently sitting up in the chair and continues on 6 L via nasal cannula. WBC is elevated at 17.7 today possible component of recent chemotherapy versus dexamethasone use as patient is now afebrile. Physical therapy working with the patient daily patie nt continues to be weak requiring assistance although also continues to refuse rehab on discharge. Patient denying any chest pain or shortness of breath. Patient is afebrile. No report of nausea or vomiting noted and patient is tolerating diet. PT/OT to continue to follow daily. 05/14/2021 Patient is evaluated sitting up in bed and continues with low oxygen saturations. When asking the patient about shortness of breath, he denies, but his pulse ox readings continue to drop. Patient was found with his oxygen tubing off and oxygen saturation quickly dropped into the 50's and was placed back on his oxygen and recovered to 90% on 6L via NC. Patient is afebrile, WBC trending up today and is 22.76. Hemoglobin is 8.7. Sodium is 134. Sputum cultures pending. Patient was on cefepime. ID following. Chest xray today shows continuing left lung diffuse edema and or infiltrate. Pulmonary following. Review of systems: Constitutional: No reports of fatigue, fever, or chills Cardiovascular: No reports of chest pain or palpitations Respiratory: No reports of shortness of breath or cough GI: No reports of nausea, vomiting, or diarrhea : No reports of dysuria or retention Neurovascular: No reports of weakness or numbness All medications have been reviewed Active Medications Acetaminophen (Acetaminophen Tab 325 Mg Tab) 650 mg PO Q6HR PRN PRN Reason: Fever and/ or Pain Last Admin: 05/08/21 13:46 Dose: 650 mg Documented by: Artificial Tears (Artificial Tears-Hypromellose Drops 15 Ml Btl) 1 drops BOTH EYES DAILY PRN PRN Reason: DRY EYES Dexamethasone (Dexamethasone 2 Mg Tab) 1 mg PO DAILY [facility] Last Admin: 05/14/21 08:50 Dose: 1 mg Documented by: Folic Acid (Folic Acid 1 Mg Tab) 1 mg PO DAILY [facility] Last Admin: 05/14/21 08:50 Dose: 1 mg Documented by: Heparin Sodium (Porcine) (Heparin Sodium,Porcine/Pf 5,000 Unit/0.5 Ml Syringe) 5,000 unit SQ Q12HR [facility] Last Admin: 05/14/21 20:15 Dose: 5,000 unit Documented by: Sodium Chloride (Saline 0.9%) 1,000 mls @ 20 mls/hr IV .Q24H [facility] Last Admin: 05/13/21 20:37 Dose: 20 mls/hr Documented by: Piperacillin Sod/Tazobactam (Sod 3.375 gm/ Sodium Chloride) 100 mls @ 25 mls/hr IVPB Q8HR [facility]; Protocol Last Admin: 05/14/21 17:50 Dose: 25 mls/hr Documented by: Vancomycin HCl 1,000 mg/ (Sodium Chloride) 250 mls @ 125 mls/hr IVPB Q8HR [facility] Magnesium Oxide (Magnesium Oxide 400 Mg Tab) 400 mg PO DAILY [facility] Last Admin: 05/14/21 08:50 Dose: 400 mg Documented by: Miscellaneous Information (Potassium Replacement Protocol 1 Each Misc) 1 each MISCELLANE DAILY PRN; Protocol PRN Reason: Per Protocol Miscellaneous Information (Potassium Replacement Protocol 1 Each Misc) 1 each MISCELLANE DAILY PRN; Protocol PRN Reason: Per Protocol Naloxone HCl (Naloxone 0.4 Mg/Ml 1 Ml Vial) 0.2 mg IV Q2M PRN PRN Reason: Opioid Reversal Olanzapine (Olanzapine 2.5 Mg Tab) 2.5 mg PO DAILY [facility]G Stop: 05/21/21 23:00 Last Admin: 05/14/21 08:51 Dose: 2.5 mg Documented by: Ondansetron HCl (Ondansetron 4 Mg Tab) 4 mg PO Q4H PRN PRN Reason: Nausea PHYSICAL EXAMINATION: GENERAL: The patient is alert and awake, continues to be confused at times, thin built, cachectic, ill-appearing. HEENT: Pupils are round and equally reacting to light. EOMI. does have scleral icterus. No conjunctival pallor. Normocephalic, atraumatic. No pharyngeal erythema. No thyromegaly. CARDIOVASCULAR: S1 and S2 muffled PULMONARY: diminished breath sounds bilaterally with some scattered rhonchi noted. ABDOMEN: soft. Non-tender on exam. Thin built. non-distended, normoactive bowel sounds. No palpable organomegaly. MUSCULOSKELETAL: No joint swelling or deformity. EXTREMITIES: No cyanosis, clubbing, or pedal edema. NEUROLOGICAL: Gross neurological examination did not reveal any focal deficits. Diffuse weakness SKIN: No rashes. Assessment: Acute delirium Fever, possible sepsis, present on admission Possible pneumonia, suspected on the left elevated d-dimer with no evidence of PE on CT Acute hypoxic respiratory failure possibly secondary to stage IV lung carcinoma, requiring 4 L of oxygen Severe Gait dysfunction Generalized weakness Hyponatremia Pancytopenia Small cell lung carcinoma, receiving chemotherapy treatments Underlying COPD with extensive tobacco and cigar use history GI prophylaxis DVT prophylaxis Full code Plan: Recommend to continue with current medications and symptomatic treatment. Multiple medical consultations including neurology, nephrology, oncology following. Pulmonary also following and given patients worsening respiratory status requiring more oxygen and desating very quickly, patient being transferred to ICU for closer monitoring and management. Vancomycin and zosyn also being added to medication regimen and repeat blood cultures ordered. Infectious disease following as well. Patient continues on 6L via NC and denies shortness of breath. Patient is confused but appears to be slightly more alert today. Sodium stable and continues on fluid restrictions. PT/OT following and continues to be weak. Refusing rehab. Repeat labs ordered for am. Due to mu ltiple complex medical issues, overall prognosis is extremely guarded. The impression and plan of care has been dictated by Keren Dickson, nurse practitioner as directed. MD Ismael I have performed a history and examination and MDM of this patient, discussed the same with the dictator, and agree with the dictator's assessment and plan as written ,documented as a scribe. Based on total visit time, I have performed more than 50% of the visit. Objective - Vital Signs Vital signs: Vital Signs Temp 97.8 F 05/14/21 03:55 Pulse 109 H 05/14/21 03:55 Resp 20 05/14/21 03:55 BP 157/87 05/14/21 03:55 Pulse Ox 85 L 05/14/21 08:33 Intake & Output 05/13/21 05/14/21 05/14/21 18:59 06:59 18:59 Intake Total 780 700 Output Total 600 Balance 780 100 Intake: Intake, IV Titration 400 Amount Cefepime 2 gm In Sodium 200 Chloride 0.9% 100 ml @ 25 mls/hr IVPB Q8H [facility] Rx#: [id number] Sodium Chloride 0.9% 1, 200 000 ml @ 20 mls/hr IV . Q24H [facility] Rx#:[id number] Oral 780 300 Output: Urine 600 Other: Voiding Method Urinal Urinal Diaper Diaper Incontinent Incontinent # Voids 3 - Labs CBC & Chem 7: 05/14/21 06:45 05/14/21 06:45 Labs: Abnormal Lab Results - Last 24 Hours (Table) 05/13/21 Range/Units 10:10 Osmolality 273 L (280-301) mosm/kg Microbiology - Last 24 Hours (Table) 05/08/21 18:58 Blood Culture - Preliminary Blood No Growth after 120 hours
[2021-05-14] MEDS: VANCOMYCIN 1,000 MG in SODIUM CHLORIDE 0.9% 250 ML IVPB SCH (23:46)
[2021-05-15 06:13] LABS: Anisocytosis Slight; HCT 22.6 % (39.0-53.0); MCH 36.4 pg (25.0-35.0); MCV 91.3 fL (80.0-100.0); Mean Platelet Volume 7.5; Platelet Count 226 k/uL (150-450); Poikilocytosis Moderate; RBC 2.48 m/uL (4.30-5.90); WBC 21.1 k/uL (3.8-10.6)
[2021-05-15 06:18] LABS: MCHC 39.9 g/dL (31.0-37.0)
--- NOTE | 2021-05-15 06:29 | XR ---
EXAMINATION TYPE: XR chest 1V DATE OF EXAM: 05/15/2021 CLINICAL HISTORY: Difficulty breathing progress study. History of lung cancer. TECHNIQUE: Single AP portable upright view of the chest is obtained. COMPARISON: Chest x-ray from one day earlier and older studies. FINDINGS: Background chronic emphysematous change with continued confluent left lung reticulonodula r opacities. Persistent suspicious right upper lung nodule or neoplasm . The cardiac silhouette size remains within normal limits. Multilevel spurring in the thoracic spine. IMPRESSION: Continued left lung diffuse edema and/or infiltrates on background chronic emphysematous change and known right upper lung neoplasm. Slight overall improved aeration in the left lung from 1 day earlier.
[2021-05-15 06:30] LABS: African American GFR (CKD) >90 (>60 ml/min/1.73 sqM); Anion Gap 0 mmol/L; Blood Urea Nitrogen 21 mg/dL (9-20); Calcium 7.4 mg/dL (8.4-10.2); Carbon Dioxide 32 mmol/L (22-30); Chloride 98 mmol/L (98-107); Glucose 94 mg/dL (74-99); Non-African American GFR(CKD) >90 (>60 ml/min/1.73 sqM); Potassium 3.5 mmol/L (3.5-5.1); Sodium 130 mmol/L (137-145)
[2021-05-15] MEDS ORDERED: Potassium Replacement Protocol 1 EACH MISC MISCELLANE PRN (06:44)
[2021-05-15 06:53] LABS: Band Neutrophils % 39 %; Lymphocytes # (M) 1.06 k/uL (1.0-4.8); Metamyelocytes # (M) 2.74 k/uL (0); Metamyelocytes % 13 %; Monocytes # (M) 0.63 k/uL (0-1.0); Myelocytes # (M) 2.32 k/uL (0); Myelocytes % 11 %; Neutrophils % (M) 28 %; Nucleated Red Blood Cells 0 /100 WBC (0-0); Promyelocytes # (M) 0.21 k/uL (0); Promyelocytes % 1 %; Total Cells Counted 200
[2021-05-15 06:54] LABS: Anisocytosis (M) Present; Poikilocytosis (M) Present; Polychromasia Present
[2021-05-15] MEDS: POTASSIUM CHLORIDE 10 MEQ in WATER FOR INJECTION 1 100ML.BAG IVPB SCH ×2 (08:36→10:23)
[2021-05-15] MEDS: PIPERACILLIN-TAZOBACTAM 3.375 GM in SODIUM CHLORIDE 0.9% 100 ML IVPB SCH ×2 (08:41→16:32)
[2021-05-15] MEDS: VANCOMYCIN 1,000 MG in SODIUM CHLORIDE 0.9% 250 ML IVPB SCH ×2 (08:42→16:32)
[2021-05-15] MEDS: dexAMETHasone 2 MG TAB PO SCH (08:43)
[2021-05-15] MEDS: FOLIC ACID 1 MG TAB PO SCH (08:43)
[2021-05-15] MEDS: MAGNESIUM OXIDE 400 MG TAB PO SCH (08:43)
[2021-05-15] MEDS: HEPARIN SODIUM,PORCINE/PF 5,000 UNIT/0.5 ML SYRINGE SQ SCH ×2 (08:43→20:58)
[2021-05-15] MEDS: SODIUM CHLORIDE 0.9% 1,000 ML IV SCH ×2 (08:51→22:01)
[2021-05-15] MEDS: POTASSIUM CHLORIDE 10 MEQ in SODIUM CHLORIDE 0.9% 100 ML IVPB SCH ×3 (09:03→21:58)
[2021-05-15] MEDS: OLANZapine 2.5 MG TAB PO SCH (09:04)
--- NOTE | 2021-05-15 13:01 | P.PN ---
Subjective Progress Note Date: 05/15/21 This is a 68-year-old male patient is known to me. 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 I establish his diagnosis through bronchoscopy and endobronchial ultrasound with no fine-needle aspirate. The patient also was having issues with hyponatremia with a sodium was dropping consistent with underlying SIADH. He was in the hospital on 05/01/2021 after the had a sodium level 113 and the patient had a witnessed seizure. He was in the intensive care unit. CAT scan of the brain was completed and it showed no evidence of any [employer] metastases. His chest x-ray was still showing a right hilar mass and the patient was subjected to fluid restriction, hypertonic saline at patient was discharged home to be readmitted within 48 hours because of altered mentation. The patient was accordingly admitted again to the hospital. The patient was found to be febrile and the patient was treated for neutropenic fever. Noted the patient has already received a first session of systemic chemotherapy on 04/28/2021 and he completed that on 04/30/2021. MRI of the brain with and without contrast done on 03/27/2021 showed moderate atrophy. No evidence of any metastases. For now, the patient is on the oncology floor. He is being followed up by oncology, neurology and nephrology. The patient had a temperature of 102.6 and initially the patient was covered with a combination of antibiotics including cefepime and vancomycin. Subsequently, infectious disease discontinued the vancomycin and the patient is only on IV cefepime for now.. MRI of the lumbosacral spine showed degenerative disc disease and facet arthropathy and some nonspecific enhancing lumbosacral nerves that may be vascular but it is indeterminate. Note that the patient's fever has broken the patient has been afebrile over the past 24 hours. Nevertheless, he is slightly tachycardic. His white cell count during this current admission was as low as 1.2 and currently is up to 7.6. Hemoglobin is at 8.5. Platelet count is at 95. His d-dimer was at 19.6. BUN is at 14 with a creatinine of 0.3, and the sodium level of 133. The blood cultures been negative. The urine culture has been negative. The patient was given zarxio The patient is seen today 05/12/2021 in follow-up on the regular medical floor. He is currently resting in bed. Awake and alert in no acute distress. More oriented today compared to yesterday. He is maintaining O2 saturation in the low 90s on 6 L high flow nasal cannula. He's been afebrile. Hemodynamically stable. Dopplers of the lower extremities negative for DVT. CT angiogram ruled out pulmonary embolism. There is extensive pulmonary infiltrates. Massive mediastinal bronchial adenopathy consistent with tumor. Pulmonary infiltrates significantly increased compared to recent PET scan on 04/16/2021. Could represent lymphangitic metastatic disease in the left lung. Right upper lobe masslike infiltrate without change. MRI of the cervical spine revealed stable appearance of the cervical spine with reversal of the normal cervical lordosis, disc desiccation with disc bulging and multilevel central stenosis. No enhancing lesions of the cervical spine. Right supra-clavicular adenopathy. Blood cultures reveal no growth to date. Urine culture no growth. D-dimer 19.6. Sodium 134. Potassium 3.7. Bicarb 24. BUN 15. Creatinine 0.4. In fluenza screen negative. RSV negative. COVID-19 screen negative. He is continued on heparin for DVT prophylaxis. Antibiotics in the form of cefepime. Remains on dexamethasone 1 mg daily. The patient is seen today 05/13/2021 in follow-up on the regular medical floor. He is resting comfortably in bed. Awake and alert in no acute distress. More oriented today compared to yesterday. He denies any worsening shortness of breath, cough or congestion. The cultures reveal no growth. Urine culture revealed no growth. Follow-up blood cultures revealed no growth. White count 17.7. Hemoglobin 8.8. Platelets 152. Sodium 137. Potassium 3.5. BUN 17. Creatinine 0.3. He is continued on cefepime, dexamethasone. Heparin for DVT prophylaxis. The patient is seen today 05/14/2021 in follow-up on the regular medical floor. He is currently resting in bed. Awake and alert. Some issues with oxygen desaturations he was found with his oxygen off at one point with O2 saturation at 56%. He is currently at 92% on 6 L high flow nasal cannula. Chest x-ray reveals continued worsening left lung diffuse edema/infiltrates. Persistent right upper lobe lung nodule. Blood cultures revealing no growth. Urine culture no growth. Follow-up blood culture no growth. White count 22.7. Hemoglobin 8.7. Sodium 134. Potassium 3.6. Creatinine 0.3. Urine osmolality 960. He is continued on cefepime. 05/15/2021, the patient is being seen in follow-up. The patient is currently in the intensive care unit. Noted the patient got transferred to the ICU the patient was getting progressively more short of breath and hypoxic. There is development of an extensive left lung pneumonia in the setting of immunosuppression, lung cancer and chemotherapy. The patient initially presented to us with neutropenic fever. The patient is currently on examination Zosyn and vancomycin. He is laying down comfortably in bed. He is quite debilitated and getting progressively more weak. Nevertheless, this morning, his breathing is not much labored. Is on high flow oxygen utilizing Airvo and the patient is currently on 50 L with an FiO2 of 67% of the patient's current pulse ox is 96%. IV fluids are currently at KVO. White cell count is at 21 with a hemoglobin of 9 and a platelet count of 226. He is able to tolerate diet. Trace edema lower extremity is bilaterally. Remains on Decadron 1 mg by mouth on a daily basis. No altered mentation at this point in time. Sodium level is stable. Objective - Vital Signs Vital signs: Vital Signs Temp 99.2 F 05/15/21 04:00 Pulse 97 05/15/21 10:00 Resp 16 05/15/21 10:00 BP 125/70 05/15/21 10:00 Pulse Ox 89 L 05/15/21 10:00 Intake & Output 05/14/21 05/15/21 05/15/21 18:59 06:59 18:59 Intake Total 50 415 465 Output Total 200 40 Balance 50 215 425 Weight 56.245 kg 53.2 kg Intake: IV 240 365 Piperacillin-Tazobactam 3 75 .375 gm In Sodium Chloride 0.9% 100 ml @ 25 mls/hr IVPB Q8HR [facility] Rx# :[id number] Sodium Chloride 0.9% 1, 240 40 000 ml @ 20 mls/hr IV . Q24H [facility] Rx#:[id number] Vancomycin 1,000 mg In 250 Sodium Chloride 0.9% 250 ml @ 125 mls/hr IVPB Q8HR [facility] Rx#:[id number] Intake, IV Titration 175 Amount Piperacillin-Tazobactam 3 50 .375 gm In Sodium Chloride 0.9% 100 ml @ 25 mls/hr IVPB Q8HR [facility] Rx# :[id number] Vancomycin 1,000 mg In 125 Sodium Chloride 0.9% 250 ml @ 125 mls/hr IVPB Q8HR [facility] Rx#:[id number] Oral 50 100 Output: Urine 200 40 Other: Voiding Method Urinal Incontinent Incontinent Diaper # Voids 0 # Bowel Movements 1 - Exam GENERAL EXAM: Alert, pleasant, frail 70-year-old male patient, on Airvo 15 L an FiO2 of 67% HEAD: Normocephalic/atraumatic. EYES: Normal reaction of pupils, equal size. Conjunctiva pink, sclera white. NOSE: Clear with pink turbinates. THROAT: No erythema or exudates. NECK: No masses, no JVD, no thyroid enlargement, no adenopathy. CHEST: No chest wall deformity. Symmetrical expansion. LUNGS: Equal air entry with bilateral scattered rhonchi, crackles are more so on the left CVS: Regular rate and rhythm, normal S1 and S2, no gallops, no murmurs, no rubs ABDOMEN: Soft, nontender. No hepatosplenomegaly, normal bowel sounds, no guar ding or rigidity. EXTREMITIES: No clubbing, no edema, no cyanosis, 2+ pulses and upper and lower extremities. MUSCULOSKELETAL: Muscle strength and tone normal. SPINE: No scoliosis or deformity SKIN: No rashes CENTRAL NERVOUS SYSTEM: Alert and occasionally confused. No focal deficits, tone is normal in all 4 extremities. No neck stiffness PSYCHIATRIC: Alert and oriented -3. Appropriate affect. Intact judgment and insight. - Labs CBC & Chem 7: 05/15/21 05:47 05/15/21 05:47 Labs: Abnormal Lab Results - Last 24 Hours (Table) 05/14/21 05/15/21 05/15/21 Range/Units 05:35 05:47 05:47 WBC 21.1 H (3.8-10.6) k/uL RBC 2.48 L (4.30-5.90) m/uL Hgb 9.0 L (13.0-17.5) gm/dL Hct 22.6 L (39.0-53.0) % MCH 36.4 H (25.0-35.0) pg MCHC 39.9 H (31.0-37.0) g/dL RDW 17.0 H (11.5-15.5) % Neutrophils # (Manual) 14.10 H (1.3-7.7) k/uL Metamyelocytes # (Man) 2.74 H (0) k/uL Myelocytes # (Manual) 2.32 H (0) k/uL Promyelocytes # (Man) 0.21 H (0) k/uL Sodium 130 L (137-145) mmol/L Carbon Dioxide 32 H (22-30) mmol/L BUN 21 H (9-20) mg/dL Creatinine 0.41 L (0.66-1.25) mg/dL Calcium 7.4 L (8.4-10.2) mg/dL Ur Random Sodium 226 H (40-220) mmol/L Microbiology - Last 24 Hours (Table) 05/08/21 18:58 Blood Culture - Final Blood No Growth after 144 hours Assessment and Plan Plan: 1 small cell lung cancer, early SVC syndrome, status post first cycle of systemic chemotherapy using carboplatin and [employer]-16 and Tecentriq . 2 acute hypoxic respiratory failure, the patient is currently on Airvo 15 L of FiO2 of 67%. The patient developed extensive left lung pneumonia with diffuse pulmonary infiltration on the left. The patient became progressively more hypoxic and the patient got transferred to the intensive care unit. Initially, the patient was hospitalized for an acute neutropenic fever, and a white cell count improved. 3 acute left lung pneumonia and acute febrile illness, secondary to above, currently the patient on a combination of Zosyn and vancomycin 4 Leukopenia, recovered 5 episodic SIADH, sodium level is adequate for now 6 altered mentation secondary to sepsis 7 hypertension 8 osteoarthritis 9 later in TB back in 1996 Plan titrate oxygen flow to maintain a saturation above 90%. The patient is cur rently on Airvo 15 L an FiO2 of 67% Monitor fever pattern Monitor cultures Continue IV Zosyn and vancomycin Neutropenia has recovered Monitor hematologic profile Monitor mental status Obviously this is a critically condition and the patient is to be monitored in the intensive care unit. Getting progressively more debilitated because of his underlying small cell lung cancer. No signs of any SVC syndrome at this point in time. The active issue for now is left lung pneumonia. We'll continue to follow.
--- NOTE | 2021-05-15 22:51 | P.PN ---
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 Patient did have a CT and a gram of the chest completed on 05/11/2021 with evidence of right upper lobe consolidation any increasing infiltrate On today's evaluation that is 05/15/2021 the patient denies any fever or chills, the patient did have worsening hypoxemia and he transferred to the ICU is currently on high flow oxygen , patient denies having any chest pain he did have a cough but not bringing up any sputum , the patient denies abdominal pain and no diarrhea Objective - Vital Signs Vital signs: Vital Signs Temp 99.2 F 05/15/21 04:00 Pulse 97 05/15/21 14:00 Resp 25 H 05/15/21 14:00 BP 131/75 05/15/21 14:00 Pulse Ox 97 05/15/21 14:00 Intake & Output 05/14/21 05/15/21 05/15/21 18:59 06:59 18:59 Intake Total 50 415 530 Output Total 200 80 Balance 50 215 450 Weight 56.245 kg 53.2 kg Intake: IV 240 430 Piperacillin-Tazobactam 3 100 .375 gm In Sodium Chloride 0.9% 100 ml @ 25 mls/hr IVPB Q8HR [facility] Rx# :[id number] Sodium Chloride 0.9% 1, 240 80 000 ml @ 20 mls/hr IV . Q24H [facility] Rx#:[id number] Vancomycin 1,000 mg In 250 Sodium Chloride 0.9% 250 ml @ 125 mls/hr IVPB Q8HR [facility] Rx#:[id number] Intake, IV Titration 175 Amount Piperacillin-Tazobactam 3 50 .375 gm In Sodium Chloride 0.9% 100 ml @ 25 mls/hr IVPB Q8HR [facility] Rx# :[id number] Vancomycin 1,000 mg In 125 Sodium Chloride 0.9% 250 ml @ 125 mls/hr IVPB Q8HR [facility] Rx#:[id number] Oral 50 100 Output: Urine 200 80 Other: Voiding Method Urinal Incontinent Incontinent Diaper # Voids 0 # Bowel Movements 1 - Exam GENERAL DESCRIPTION: An elderly male lying in bed in no distress RESPIRATORY SYSTEM: Unlabored breathing , decreased breath sounds at bases HEART: S1 S2 regular rate and rhythm , ABDOMEN: Soft , no tenderness EXTREMITIES: No edema feet - Labs CBC & Chem 7: 05/15/21 05:47 05/15/21 13:53 Labs: Abnormal Lab Results - Last 24 Hours (Table) 05/14/21 05/15/21 05/15/21 Range/Units 05:35 05:47 05:47 WBC 21.1 H (3.8-10.6) k/uL RBC 2.48 L (4.30-5.90) m/uL Hgb 9.0 L (13.0-17.5) gm/dL Hct 22.6 L (39.0-53.0) % MCH 36.4 H (25.0-35.0) pg MCHC 39.9 H (31.0-37.0) g/dL RDW 17.0 H (11.5-15.5) % Neutrophils # (Manual) 14.10 H (1.3-7.7) k/uL Metamyelocytes # (Man) 2.74 H (0) k/uL Myelocytes # (Manual) 2.32 H (0) k/uL Promyelocytes # (Man) 0.21 H (0) k/uL Sodium 130 L (137-145) mmol/L Carbon Dioxide 32 H (22-30) mmol/L BUN 21 H (9-20) mg/dL Creatinine 0.41 L (0.66-1.25) mg/dL Calcium 7.4 L (8.4-10.2) mg/dL Ur Random Sodium 226 H (40-220) mmol/L Microbiology - Last 24 Hours (Table) 05/08/21 18:58 Blood Culture - Final Blood No Growth after 144 hours Assessment and Plan (1) Fever Current Visit: Yes Status: Acute Code(s): R50.9 - FEVER, UNSPECIFIED SNOMED Code(s): 457167607 Plan: 1patient with a stage IV small cell cancer right upper lobe this patient has been started on chemotherapy presented to the hospital with some mental status changes and has developed a fever source is likely right upper lobe pneumonia as no other obvious focus of infection urine has been negative abdominal soft on clinical examination no evidence of any cellulitis or joint swelling. 2sputum culture requested but not collected 3patient did have slight worsening of his respiratory status and has been transferred to the ICU, patient on Zosyn and vancomycin has been added we will monitor his kidney function closely try to obtain sputum to narrow his antibiotics, family the bedside questions were answered Time with Patient: Less than 30
[2021-05-15] MEDS: IPRATROPIUM-ALBUTEROL 3 ML NEB INHALATION SCH (23:23)
--- NOTE | 2021-05-16 00:14 | P.PN ---
Subjective Progress Note Date: 05/15/21 The pt was transferred to the ICU last pm due to progressive SOB. He is actually better today, comfortable, with decrease in FiO2 requirement. Cough and mentation are improved. No f/c Objective - Vital Signs Vital signs: Vital Signs Temp 98 F 05/15/21 20:00 Pulse 85 05/15/21 23:25 Resp 15 05/15/21 22:00 BP 130/73 05/15/21 22:00 Pulse Ox 100 05/15/21 23:25 Intake & Output 05/15/21 05/15/21 05/16/21 06:59 18:59 06:59 Intake Total 415 1050 600 Output Total 200 80 130 Balance 215 970 470 Weight 53.2 kg Intake: IV 240 750 600 Piperacillin-Tazobactam 3 100 .375 gm In Sodium Chloride 0.9% 100 ml @ 25 mls/hr IVPB Q8HR [facility] Rx# :[id number] Potassium Chloride IVPB 200 Sodium Chloride 0.9% 1, 240 400 400 000 ml @ 100 mls/hr IV . Q10H [facility] Rx#:[id number] Vancomycin 1,000 mg In 250 Sodium Chloride 0.9% 250 ml @ 125 mls/hr IVPB Q8HR [facility] Rx#:[id number] Intake, IV Titration 175 Amount Piperacillin-Tazobactam 3 50 .375 gm In Sodium Chloride 0.9% 100 ml @ 25 mls/hr IVPB Q8HR [facility] Rx# :[id number] Vancomycin 1,000 mg In 125 Sodium Chloride 0.9% 250 ml @ 125 mls/hr IVPB Q8HR [facility] Rx#:[id number] Oral 300 Output: Urine 200 80 130 Other: Voiding Method Incontinent Incontinent Incontinent # Voids 0 1 # Bowel Movements 1 - Constitutional General appearance: Present: no acute distress - EENT Eyes: Present: EOMI ENT: Present: hearing grossly normal, normal oropharynx - Respiratory Respiratory: left: rales (Mild), bilateral: diminished - Cardiovascular Rhythm: regular Heart sounds: normal: S1, S2 - Gastrointestinal General gastrointestinal: Present: normal bowel sounds, soft - Integumentary Integumentary: Present: normal - Neurologic Neurologic: Present: CNII-XII intact - Musculoskeletal Musculoskeletal: Present: generalized weakness, strength equal bilaterally - Psychiatric Psychiatric Comment(s): AOx2 - unable to specify exact date - Labs CBC & Chem 7: 05/15/21 05:47 05/15/21 13:53 Labs: Abnormal Lab Results - Last 24 Hours (Table) 05/15/21 05/15/21 Range/Units 05:47 05:47 WBC 21.1 H (3.8-10.6) k/uL RBC 2.48 L (4.30-5.90) m/uL Hgb 9.0 L (13.0-17.5) gm/dL Hct 22.6 L (39.0-53.0) % MCH 36.4 H (25.0-35.0) pg MCHC 39.9 H (31.0-37.0) g/dL RDW 17.0 H (11.5-15.5) % Neutrophils # (Manual) 14.10 H (1.3-7.7) k/uL Metamyelocytes # (Man) 2.74 H (0) k/uL Myelocytes # (Manual) 2.32 H (0) k/uL Promyelocytes # (Man) 0.21 H (0) k/uL Sodium 130 L (137-145) mmol/L Carbon Dioxide 32 H (22-30) mmol/L BUN 21 H (9-20) mg/dL Creatinine 0.41 L (0.66-1.25) mg/dL Calcium 7.4 L (8.4-10.2) mg/dL Microbiology - Last 24 Hours (Table) 05/08/21 18:58 Blood Culture - Final Blood No Growth after 144 hours Assessment and Plan (1) Acute respiratory failure Narrative/Plan: Pt had exacerbation last pm necessitating transfer to ICU. CXR again revealed extensive pneumonia LLL, but no worsening. The pt is improved today. Etiology of acute worsening is not clear - ? mucous plug , which he was able to clear. Other causes not ruled out. Continue management per Pulm and ID Current Visit: Yes Status: Acute Code(s): J96.00 - ACUTE RESPIRATORY FAILURE, UNSP W HYPOXIA OR HYPERCAPNIA SNOMED Code(s): 17283011 (2) Acute delirium Narrative/Plan: Multifactorial. He was worse yesterday, when more hypoxic. He is improved today with improved respiratory status Current Visit: Yes Status: Acute Priority: High Code(s): R41.0 - DISORIENTATION, UNSPECIFIED SNOMED Code(s): 1230546 (3) Fever Narrative/Plan: Resolved. Extensive LLL pneumonia, on IV Abx Current Visit: Yes Status: Acute Code(s): R50.9 - FEVER, UNSPECIFIED SNOMED Code(s): 144912131 (4) Small cell lung cancer Current Visit: Yes Status: Acute Priority: High Code(s): C34.90 - MALIGNANT NEOPLASM OF UNSP PART OF UNSP BRONCHUS OR LUNG SNOMED Code(s): 561196275 (5) Pancytopenia Current Visit: Yes Status: Acute Priority: Medium Code(s): D61.818 - OTHER PANCYTOPENIA SNOMED Code(s): 972719197
[2021-05-16] MEDS: PIPERACILLIN-TAZOBACTAM 3.375 GM in SODIUM CHLORIDE 0.9% 100 ML IVPB SCH ×3 (00:15→16:21)
[2021-05-16] MEDS: VANCOMYCIN 1,000 MG in SODIUM CHLORIDE 0.9% 250 ML IVPB SCH ×4 (00:15→23:59)
[2021-05-16] MEDS: methylPREDNISolone SOD SUCCI 125 MG/2 ML VIAL IV SCH ×5 (00:26→23:59)
[2021-05-16] MEDS: IPRATROPIUM-ALBUTEROL 3 ML NEB INHALATION SCH ×5 (03:40→19:40)
[2021-05-16] MEDS ORDERED: VANCOMYCIN TROUGH DUE 1 EACH MISC MISCELLANE ONE (07:00)
[2021-05-16 07:52] LABS: Anisocytosis Slight; HCT 23.7 % (39.0-53.0); HGB 8.1 gm/dL (13.0-17.5); MCH 31.4 pg (25.0-35.0); MCHC 34.1 g/dL (31.0-37.0); MCV 92.2 fL (80.0-100.0); Mean Platelet Volume 8.1; Platelet Count 330 k/uL (150-450); Poikilocytosis Moderate; RBC 2.57 m/uL (4.30-5.90); RDW 17.3 % (11.5-15.5); WBC 20.3 k/uL (3.8-10.6)
[2021-05-16 07:56] LABS: African American GFR (CKD) >90 (>60 ml/min/1.73 sqM); Anion Gap 0 mmol/L; Blood Urea Nitrogen 14 mg/dL (9-20); Calcium 7.3 mg/dL (8.4-10.2); Carbon Dioxide 31 mmol/L (22-30); Chloride 100 mmol/L (98-107); Glucose 165 mg/dL (74-99); Non-African American GFR(CKD) >90 (>60 ml/min/1.73 sqM); Potassium 4.2 mmol/L (3.5-5.1); Sodium 131 mmol/L (137-145)
[2021-05-16] MEDS: SODIUM CHLORIDE 0.9% 1,000 ML IV SCH ×2 (08:38→16:22)
[2021-05-16] MEDS: OLANZapine 2.5 MG TAB PO SCH (08:39)
[2021-05-16] MEDS: HEPARIN SODIUM,PORCINE/PF 5,000 UNIT/0.5 ML SYRINGE SQ SCH ×2 (08:39→21:17)
[2021-05-16] MEDS: MAGNESIUM OXIDE 400 MG TAB PO SCH (08:40)
[2021-05-16] MEDS: FOLIC ACID 1 MG TAB PO SCH (08:40)
[2021-05-16 08:50] LABS: Band Neutrophils % 7 %; Lymphocytes # (M) 2.23 k/uL (1.0-4.8); Metamyelocytes # (M) 1.62 k/uL (0); Metamyelocytes % 8 %; Monocytes # (M) 0.81 k/uL (0-1.0); Myelocytes # (M) 2.64 k/uL (0); Myelocytes % 13 %; Neutrophils % (M) 53 %; Promyelocytes # (M) 0.81 k/uL (0); Promyelocytes % 4 %
[2021-05-16 08:51] LABS: Blast Cells # (M) 0.41 k/uL (0); Nucleated Red Blood Cells 0 /100 WBC (0-0); Polychromasia Present; Total Cells Counted 200
[2021-05-16 08:52] LABS: RBC Fragments Present; Spherocytes Present
[2021-05-16 11:54] LABS: Glucose,Whole Blood 233 mg/dL (75-99)
[2021-05-16] MEDS: INSULIN ASPART (NovoLOG) 100 UNIT/ML VIAL SQ SCH ×3 (11:58→21:17)
--- NOTE | 2021-05-16 12:02 | XR ---
EXAMINATION TYPE: XR chest 1V portable DATE OF EXAM: 05/16/2021 CLINICAL HISTORY: Difficulty breathing and pneumonia progress study. TECHNIQUE: Single AP portable upright view of the chest is obtained. COMPARISON: Chest x-ray from one day earlier and older studies. FINDINGS: Background chronic emphysematous change with continued confluent left lung reticulonodula r opacities. Persistent suspicious right upper lung nodule or neoplasm . The cardiac silhouette size remains within normal limits. Multilevel spurring in thoracic spine redemonstrated. IMPRESSION: Continued left lung diffuse edema and/or infiltrates on background chronic emphysematous change and known right upper lung neoplasm. No significant change from one day earlier.
--- NOTE | 2021-05-16 14:48 | P.PN ---
Subjective Progress Note Date: 05/16/21 This is a 68-year-old male patient is known to me. 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 I establish his diagnosis through bronchoscopy and endobronchial ultrasound with no fine-needle aspirate. The patient also was having issues with hyponatremia with a sodium was dropping consistent with underlying SIADH. He was in the hospital on 05/01/2021 after the had a sodium level 113 and the patient had a witnessed seizure. He was in the intensive care unit. CAT scan of the brain was completed and it showed no evidence of any CLAIMS ADJUSTOR metastases. His chest x-ray was still showing a right hilar mass and the patient was subjected to fluid restriction, hypertonic saline at patient was discharged home to be readmitted within 48 hours because of altered mentation. The patient was accordingly admitted again to the hospital. The patient was found to be febrile and the patient was treated for neutropenic fever. Noted the patient has already received a first session of systemic chemotherapy on 04/28/2021 and he completed that on 04/30/2021. MRI of the brain with and without contrast done on 03/27/2021 showed moderate atrophy. No evidence of any metastases. For now, the patient is on the oncology floor. He is being followed up by oncology, neurology and nephrology. The patient had a temperature of 102.6 and initially the patient was covered with a combination of antibiotics including cefepime and vancomycin. Subsequently, infectious disease discontinued the vancomycin and the patient is only on IV cefepime for now.. MRI of the lumbosacral spine showed degenerative disc disease and facet arthropathy and some nonspecific enhancing lumbosacral nerves that may be vascular but it is indeterminate. Note that the patient's fever has broken the patient has been afebrile over the past 24 hours. Nevertheless, he is slightly tachycardic. His white cell count during this current admission was as low as 1.2 and currently is up to 7.6. Hemoglobin is at 8.5. Platelet count is at 95. His d-dimer was at 19.6. BUN is at 14 with a creatinine of 0.3, and the sodium level of 133. The blood cultures been negative. The urine culture has been negative. The patient was given zarxio The patient is seen today 05/12/2021 in follow-up on the regular medical floor. He is currently resting in bed. Awake and alert in no acute distress. More oriented today compared to yesterday. He is maintaining O2 saturation in the low 90s on 6 L high flow nasal cannula. He's been afebrile. Hemodynamically stable. Dopplers of the lower extremities negative for DVT. CT angiogram ruled out pulmonary embolism. There is extensive pulmonary infiltrates. Massive mediastinal bronchial adenopathy consistent with tumor. Pulmonary infiltrates significantly increased compared to recent PET scan on 04/16/2021. Could represent lymphangitic metastatic disease in the left lung. Right upper lobe masslike infiltrate without change. MRI of the cervical spine revealed stable appearance of the cervical spine with reversal of the normal cervical lordosis, disc desiccation with disc bulging and multilevel central stenosis. No enhancing lesions of the cervical spine. Right supra-clavicular adenopathy. Blood cultures reveal no growth to date. Urine culture no growth. D-dimer 19.6. Sodium 134. Potassium 3.7. Bicarb 24. BUN 15. Creatinine 0.4. In fluenza screen negative. RSV negative. COVID-19 screen negative. He is continued on heparin for DVT prophylaxis. Antibiotics in the form of cefepime. Remains on dexamethasone 1 mg daily. The patient is seen today 05/13/2021 in follow-up on the regular medical floor. He is resting comfortably in bed. Awake and alert in no acute distress. More oriented today compared to yesterday. He denies any worsening shortness of breath, cough or congestion. The cultures reveal no growth. Urine culture revealed no growth. Follow-up blood cultures revealed no growth. White count 17.7. Hemoglobin 8.8. Platelets 152. Sodium 137. Potassium 3.5. BUN 17. Creatinine 0.3. He is continued on cefepime, dexamethasone. Heparin for DVT prophylaxis. The patient is seen today 05/14/2021 in follow-up on the regular medical floor. He is currently resting in bed. Awake and alert. Some issues with oxygen desaturations he was found with his oxygen off at one point with O2 saturation at 56%. He is currently at 92% on 6 L high flow nasal cannula. Chest x-ray reveals continued worsening left lung diffuse edema/infiltrates. Persistent right upper lobe lung nodule. Blood cultures revealing no growth. Urine culture no growth. Follow-up blood culture no growth. White count 22.7. Hemoglobin 8.7. Sodium 134. Potassium 3.6. Creatinine 0.3. Urine osmolality 960. He is continued on cefepime. 05/15/2021, the patient is being seen in follow-up. The patient is currently in the intensive care unit. Noted the patient got transferred to the ICU the patient was getting progressively more short of breath and hypoxic. There is development of an extensive left lung pneumonia in the setting of immunosuppression, lung cancer and chemotherapy. The patient initially presented to us with neutropenic fever. The patient is currently on examination Zosyn and vancomycin. He is laying down comfortably in bed. He is quite debilitated and getting progressively more weak. Nevertheless, this morning, his breathing is not much labored. Is on high flow oxygen utilizing Airvo and the patient is currently on 50 L with an FiO2 of 67% of the patient's current pulse ox is 96%. IV fluids are currently at KVO. White cell count is at 21 with a hemoglobin of 9 and a platelet count of 226. He is able to tolerate diet. Trace edema lower extremity is bilaterally. Remains on Decadron 1 mg by mouth on a daily basis. No altered mentation at this point in time. Sodium level is stable. 05/17/2071, condition is stable. The patient is repeat chest exit that that showed continue with left lung diffuse pulmonary infiltrates consistent with pneumonia. He does have underlying COPD and a right hilar small cell lung cancer, metastatic at this stage. The patient remains on Airvo and the patient is currently on 50 L with an FiO2 of 65%. Pulse ox 99%. He remains on examination Zosyn and vancomycin. White cell count is at 20 with a hemoglobin of 8.1 and a platelet count of 3:30. The bicarb is a 31 with a BUN of 14 and a creatinine of 0.9. No other significant events overnight. The patient remains on IV Solu Medrol. No altered mentation. No hemoptysis. No swelling in the face or arm. The chest x-ray findings and essentially stable. Oxidation remains stable on Airvo. Objective - Vital Signs Vital signs: Vital Signs Temp 98.4 F 05/16/21 00:00 Pulse 95 05/16/21 11:34 Resp 13 05/16/21 11:00 BP 131/82 05/16/21 11:00 Pulse Ox 99 05/16/21 11:00 Intake & Output 05/15/21 05/16/21 05/16/21 18:59 06:59 18:59 Intake Total 1050 1550 400 Output Total 80 590 100 Balance 970 960 300 Weight 56.8 kg Intake: IV 750 1550 400 Piperacillin-Tazobactam 3 100 100 .375 gm In Sodium Chloride 0.9% 100 ml @ 25 mls/hr IVPB Q8HR [facility] Rx# :[id number] Potassium Chloride IVPB 200 Sodium Chloride 0.9% 1, 400 1000 400 000 ml @ 100 mls/hr IV . Q10H [facility] Rx#:[id number] Vancomycin 1,000 mg In 250 250 Sodium Chloride 0.9% 250 ml @ 125 mls/hr IVPB Q8HR [facility] Rx#:[id number] Oral 300 Output: Urine 80 590 100 Other: Voiding Method Incontinent Incontinent Incontinent # Voids 1 - Exam GENERAL EXAM: Alert, pleasant, frail 70-year-old male patient, on Airvo 15 L an FiO2 of 65% HEAD: Normocephalic/atraumatic. EYES: Normal reaction of pupils, equal size. Conjunctiva pink, sclera white. NOSE: Clear with pink turbinates. THROAT: No erythema or exudates. NECK: No masses, no JVD, no thyroid enlargement, no adenopathy. CHEST: No chest wall deformity. Symmetrical expansion. LUNGS: Equal air entry with bilateral scattered rhonchi, crackles are more so on the left CVS: Regular rate and rhythm, normal S1 and S2, no gallops, no murmurs, no rubs ABDOMEN: Soft, nontender. No hepatosplenomegaly, normal bowel sounds, no guarding or rigidity. EXTREMITIES: No clubbing, no edema, no cyanosis, 2+ pulses and upper and lower extremities. MUSCULOSKELETAL: Muscle strength and tone normal. SPINE: No scoliosis or deformity SKIN: No rashes CENTRAL NERVOUS SYSTEM: Alert and occasionally confused. No focal deficits, tone is normal in all 4 extremities. No neck stiffness PSYCHIATRIC: Alert and oriented -3. Appropriate affect. Intact judgment and insight. - Labs CBC & Chem 7: 05/16/21 07:09 05/16/21 07:09 Labs: Abnormal Lab Results - Last 24 Hours (Table) 05/16/21 05/16/21 05/16/21 Range/Units 07:09 07:09 11:51 WBC 20.3 H (3.8-10.6) k/uL RBC 2.57 L (4.30-5.90) m/uL Hgb 8.1 L (13.0-17.5) gm/dL Hct 23.7 L (39.0-53.0) % RDW 17.3 H (11.5-15.5) % Blast Cells % 2 H* % Neutrophils # (Manual) 12.10 H (1.3-7.7) k/uL Metamyelocytes # (Man) 1.62 H (0) k/uL Myelocytes # (Manual) 2.64 H (0) k/uL Promyelocytes # (Man) 0.81 H (0) k/uL Blast Cells # (Man) 0.41 H (0) k/uL Sodium 131 L (137-145) mmol/L Carbon Dioxide 31 H (22-30) mmol/L Creatinine 0.40 L (0.66-1.25) mg/dL Glucose 165 H (74-99) mg/dL POC Glucose (mg/dL) 233 H (75-99) mg/dL Calcium 7.3 L (8.4-10.2) mg/dL Assessment and Plan Plan: 1 small cell lung cancer, early SVC syndrome, status post first cycle of systemic chemotherapy using carboplatin and METEOROLOGICAL OBSERVER-16 and Tecentriq . 2 acute hypoxic respiratory failure, secondary to an extensive left lung pneumonia. The patient presented to us with neutropenic fever and subsequently developed an extensive left lung pneumonia with secondary hypoxic respiratory failure and the patient is currently on Airvo 50 L an FiO2 of 65%. The patient has been on tamoxifen setting over the past 24 hours and his condition is stable and the chest x-ray findings from today's also stable. Remains on the same antibiotic coverage. 3 acute left lung pneumonia and acute febrile illness, secondary to above, currently the patient on a combination of Zosyn and vancomycin 4 Leukopenia, recovered 5 episodic SIADH, sodium level is adequate for now 6 altered mentation secondary to sepsis 7 hypertension 8 osteoarthritis 9 later in TB back in 1996 Plan titrate oxygen flow to maintain a saturation above 90%. The patient is currently on Airvo 50 L an FiO2 of 65%. We'll gradually wean down the FiO2 as tolerated to maintain saturation above 90%. Monitor fever pattern, currently afebrile Monitor cultures Continue IV Zosyn and vancomycin Neutropenia has recovered Monitor hematologic profile Monitor mental status Chest x-ray findings are stable Continue IV Solu-Medrol Obviously this is a critically condition and the patient is to be monitored in the intensive care unit. Getting progressively more debilitated because of his underlying small cell lung cancer. No signs of any SVC syndrome at this point in time. The active issue for now is left lung pneumonia. We'll continue to follow. Long-term prognosis poor baseline above-mentioned comorbidities.
[2021-05-16 16:51] LABS: Glucose,Whole Blood 230 mg/dL (75-99)
[2021-05-16 21:15] LABS: Glucose,Whole Blood 146 mg/dL (75-99)
[2021-05-16] MEDS: INSULIN DETEMIR (LEVEMIR) 100 UNIT/ML SYR SQ SCH (21:16)
--- NOTE | 2021-05-16 22:59 | P.PN ---
Subjective Progress Note Date: 05/16/21 Principal diagnosis: Febrile neutropenia Patient is a 70 year old male with a past medical history significant for metastatic right upper lobe small cell cancer diagnosed in 04/12/2021 for the patient is currently on chemotherapy presented to hospital weakness subsequent spiking a fever and did have low white count. Patient did have a CT and a gram of the chest completed on 05/11/2021 with evidence of right upper lobe consolidation any increasing infiltrate On today's evaluation that is 05/16/2021 the patient remains to be afebrile, the patient is breathing slightly comfortably however is still requiring high flow oxygen , patient denies having any chest pain he did have a cough but not bringing up any sputum , the patient denies abdominal pain and no diarrhea Objective - Vital Signs Vital signs: Vital Signs Temp 97.8 F 05/16/21 16:00 Pulse 99 05/16/21 19:49 Resp 20 05/16/21 19:00 BP 148/80 05/16/21 19:00 Pulse Ox 99 05/16/21 19:42 Intake & Output 05/16/21 05/16/21 05/17/21 06:59 18:59 06:59 Intake Total 1550 1700 100 Output Total 590 350 Balance 960 1350 100 Weight 56.8 kg Intake: IV 1550 1200 100 Piperacillin-Tazobactam 3 100 .375 gm In Sodium Chloride 0.9% 100 ml @ 25 mls/hr IVPB Q8HR [facility] Rx# :[id number] Potassium Chloride IVPB 200 Sodium Chloride 0.9% 1, 1000 1200 100 000 ml @ 100 mls/hr IV . Q10H [facility] Rx#:[id number] Vancomycin 1,000 mg In 250 Sodium Chloride 0.9% 250 ml @ 125 mls/hr IVPB Q8HR [facility] Rx#:[id number] Oral 500 Output: Urine 590 350 Other: Voiding Method Incontinent Incontinent - Exam GENERAL DESCRIPTION: An elderly male lying in bed in no distress RESPIRATORY SYSTEM: Unlabored breathing , decreased breath sounds at bases HEART: S1 S2 regular rate and rhythm , ABDOMEN: Soft , no tenderness EXTREMITIES: No edema feet - Labs CBC & Chem 7: 05/16/21 07:09 05/16/21 07:09 Labs: Abnormal Lab Results - Last 24 Hours (Table) 05/16/21 05/16/21 05/16/21 Range/Units 07:09 07:09 11:51 WBC 20.3 H (3.8-10.6) k/uL RBC 2.57 L (4.30-5.90) m/uL Hgb 8.1 L (13.0-17.5) gm/dL Hct 23.7 L (39.0-53.0) % RDW 17.3 H (11.5-15.5) % Blast Cells % 2 H* % Neutrophils # (Manual) 12.10 H (1.3-7.7) k/uL Metamyelocytes # (Man) 1.62 H (0) k/uL Myelocytes # (Manual) 2.64 H (0) k/uL Promyelocytes # (Man) 0.81 H (0) k/uL Blast Cells # (Man) 0.41 H (0) k/uL Sodium 131 L (137-145) mmol/L Carbon Dioxide 31 H (22-30) mmol/L Creatinine 0.40 L (0.66-1.25) mg/dL Glucose 165 H (74-99) mg/dL POC Glucose (mg/dL) 233 H (75-99) mg/dL Calcium 7.3 L (8.4-10.2) mg/dL 05/16/21 05/16/21 Range/Units 16:39 21:13 WBC (3.8-10.6) k/uL RBC (4.30-5.90) m/uL Hgb (13.0-17.5) gm/dL Hct (39.0-53.0) % RDW (11.5-15.5) % Blast Cells % % Neutrophils # (Manual) (1.3-7.7) k/uL Metamyelocytes # (Man) (0) k/uL Myelocytes # (Manual) (0) k/uL Promyelocytes # (Man) (0) k/uL Blast Cells # (Man) (0) k/uL Sodium (137-145) mmol/L Carbon Dioxide (22-30) mmol/L Creatinine (0.66-1.25) mg/dL Glucose (74-99) mg/dL POC Glucose (mg/dL) 230 H 146 H (75-99) mg/dL Calcium (8.4-10.2) mg/dL Assessment and Plan (1) Fever Current Visit: Yes Status: Acute Code(s): R50.9 - FEVER, UNSPECIFIED SNOMED Code(s): 871001478 Plan: 1patient with a stage IV small cell cancer right upper lobe this patient has been started on chemotherapy presented to the hospital with some mental status changes and has developed a fever source is likely right upper lobe pneumonia as no other obvious focus of infection urine has been negative abdominal soft on c linical examination no evidence of any cellulitis or joint swelling. 2sputum culture requested and can but not collected 3patient to continue with Zosyn and vancomycin while monitoring his clinical course closely and continue supportive care
[2021-05-17] MEDS: PIPERACILLIN-TAZOBACTAM 3.375 GM in SODIUM CHLORIDE 0.9% 100 ML IVPB SCH ×3 (00:03→16:09)
[2021-05-17] MEDS: SODIUM CHLORIDE 0.9% 1,000 ML IV SCH ×2 (00:05→12:39)
--- NOTE | 2021-05-17 00:15 | P.PN ---
Subjective Progress Note Date: 05/15/21 This is a pleasant 70-year-old male who was recently admitted with altered mental status and per the acute delirium. Patient was recently just discharged for severe hyponatremia. Patient was evaluated by physical therapy recommending subacute rehab although patient refused at that time and wanted to go home and Homecare was being arranged. Per patient continued to be confused and more altered and so was brought back to the hospital for further evaluation. Neurology and oncology been consulted and pending. Will also consult nephrology as patient sodium continues to be low and is currently 127. Patient does have an extensive past medical history of hypertension, osteoarthritis, EtOH abuse, and also small cell lung carcinoma and is currently receiving chemo immunotherapy treatments. Patient has been on high-dose steroids with a taper of Decadron per oncology services. Patient also recently had further workup with a bronchoscopy with biopsy in March that confirmed the small cell lung carcinoma and patient also underwent PET scan and findings were extensive stage IV disease. On admission to the ER labs were found to be a WBC of 1.3, hemoglobin 10.0, platelets were 100, sodium was 126, potassium 4.7, BUN 23, creatinine 0.33, magnesium 1.8, urinalysis is negative. Patient had a CT of the brain without contrast showing no evidence of intracranial hemorrhage mass effect or midline shift the white matter is grossly preserved and there is no acute intracranial abnormality noted. Patient was admitted for further evaluation and will also have PT/OT therapy evaluate the patient and will consult case management/social worker health services to evaluate for ECF. Consultations currently pending. 05/10/2021 Patient is seen and evaluated in follow-up today currently sitting up in the chair. Patient being followed closely by nephrology. Patient continues with confusion at times and recommend PT/OT evaluation for possible ECF. Oncology also following along with neurology and LS-spine MRI is ordered and pending at this time. Patient continues with low-grade fevers and is maintained on IV antibiotics and will continue. Infectious disease was consulted and pending. Patient received a dose of Samsca yesterday and sodium improved at 131 today and recommend continue with fluid restrictions and will repeat labs. 05/11/2021 Patient is seen in follow-up today no acute overnight issues noted. Multiple medical consultations including nephrology, oncology, neurology following. Infectious disease also following and patient is maintained on IV cefepime and vancomycin has been discontinued. Patient had been having low-grade temps with a T-max of 102.6 and is currently afebrile for the last 24 hours now. Sputum culture along with influenza and RSV testing currently pending. This was discussed with nursing staff and the cultures will be obtained. Patient underwent MRI of the LS spine and degenerative disc disease with facet arthropathy noted and also there were 2 nonspecific enhancing lumbosacral nerves that are negative and there is no suspicious clumping or nodular enhancement images suggest neoplastic involvement in the lumbosacral spine canal. Neurology following recommending outpatient follow-up with further EMG testing and studies is necessary. Sodium improved at 133 today and potassium found to be low at 3.2 and will replace magnesium is 1.8 today. Patient requiring 4 L of oxygen and states he does not wear oxygen in the outpatient setting and will consult pulmonary which is pending at this time. Patient denies chest pain or shortness of breath. Patient reported that he was told his oxygen saturation is low and placed on oxygen. 05/12/2021 Patient is seen in follow up and appears calm and in no distress. Patient is confused with periods of being appropriate. Patient has increased oxygen demand now at 6 L. D-dimer was elevated and CTA ordered with no evidence of PE. RSV, covid, influenza are negative. Patient is afebrile. Patient to have mri of the cervical spine today with neurology following. Possible pneumonia or viral illness being considered. 05/13/2021 Patient is seen and evaluated in follow-up today continues to be closely monitored with multiple medical consultations following. Patient more alert today although continues with periods of confusion. Patient currently sitting up in the chair and continues on 6 L via nasal cannula. WBC is elevated at 17.7 today possible component of recent chemotherapy versus dexamethasone use as patient is now afebrile. Physical therapy working with the patient daily patien t continues to be weak requiring assistance although also continues to refuse rehab on discharge. Patient denying any chest pain or shortness of breath. Patient is afebrile. No report of nausea or vomiting noted and patient is tolerating diet. PT/OT to continue to follow daily. 05/14/2021 Patient is evaluated sitting up in bed and continues with low oxygen saturations. When asking the patient about shortness of breath, he denies, but his pulse ox readings continue to drop. Patient was found with his oxygen tubing off and oxygen saturation quickly dropped into the 50's and was placed back on his oxygen and recovered to 90% on 6L via NC. Patient is afebrile, WBC trending up today and is 22.76. Hemoglobin is 8.7. Sodium is 134. Sputum cultures pending. Patient was on cefepime. ID following. Chest xray today shows continuing left lung diffuse edema and or infiltrate. Pulmonary following. 05/15/2021 Patient is currently transferred to MICU. Admitted to hospital due to extensive left lung pneumonia, neutropenic fever and immunosuppression on chemotherapy due to lung cancer. Overnight patient had worsening breathing status and hypoxic. Patient was placed on BiPAP and was transferred to MICU. Currently continued on vancomycin and Zosyn. Transition to nasal cannula oxygen high flow with 50 L and FiO2 67%. Laboratory data showed WBC improved to 21.1 hemoglobin 9.0 and platelets 226 Sodium 130 potassium 3.5 chloride 98 bicarb is 32 BUN 21 creatinine 0.41 and calcium 7.4 Review of systems: Constitutional: No reports of fatigue, fever, or chills Cardiovascular: No reports of chest pain or palpitations Respiratory: No reports of shortness of breath or cough GI: No reports of nausea, vomiting, or diarrhea : No reports of dysuria or retention Neurovascular: No reports of weakness or numbness All medications have been reviewed Objective - Vital Signs Vital signs: Vital Signs Temp 98 F 05/15/21 20:00 Pulse 83 05/15/21 22:00 Resp 15 05/15/21 22:00 BP 130/73 05/15/21 22:00 Pulse Ox 99 05/15/21 22:00 Intake & Output 05/15/21 05/15/21 05/16/21 06:59 18:59 06:59 Intake Total 415 1050 600 Output Total 200 80 130 Balance 215 970 470 Weight 53.2 kg Intake: IV 240 750 600 Piperacillin-Tazobactam 3 100 .375 gm In Sodium Chloride 0.9% 100 ml @ 25 mls/hr IVPB Q8HR SUNG Rx# :[id number] Potassium Chloride IVPB 200 Sodium Chloride 0.9% 1, 240 400 400 000 ml @ 100 mls/hr IV . Q10H SUNG Rx#:[id number] Vancomycin 1,000 mg In 250 Sodium Chloride 0.9% 250 ml @ 125 mls/hr IVPB Q8HR SUNG Rx#:[id number] Intake, IV Titration 175 Amount Piperacillin-Tazobactam 3 50 .375 gm In Sodium Chloride 0.9% 100 ml @ 25 mls/hr IVPB Q8HR SUNG Rx# :[id number] Vancomycin 1,000 mg In 125 Sodium Chloride 0.9% 250 ml @ 125 mls/hr IVPB Q8HR SUNG Rx#:[id number] Oral 300 Output: Urine 200 80 130 Other: Voiding Method Incontinent Incontinent Incontinent # Voids 0 1 # Bowel Movements 1 - Exam PHYSICAL EXAMINATION: GENERAL: The patient is alert and awake, continues to be confused at times, thin built, cachectic, ill-appearing. HEENT: Pupils are round and equally reacting to light. EOMI. does have scleral icterus. No conjunctival pallor. Normocephalic, atraumatic. No pharyngeal erythema. No thyromegaly. CARDIOVASCULAR: S1 and S2 muffled PULMONARY: diminished breath sounds bilaterally with some scattered rhonchi noted. ABDOMEN: soft. Non-tender on exam. Thin built. non-distended, normoactive bowel sounds. No palpable organomegaly. MUSCULOSKELETAL: No joint swelling or deformity. EXTREMITIES: No cyanosis, clubbing, or pedal edema. NEUROLOGICAL: Gross neurological examination did not reveal any focal deficits. Diffuse weakness SKIN: No rashes. - Labs CBC & Chem 7: 05/16/21 07:09 05/16/21 07:09 Labs: Abnormal Lab Results - Last 24 Hours (Table) 05/15/21 05/15/21 Range/Units 05:47 05:47 WBC 21.1 H (3.8-10.6) k/uL RBC 2.48 L (4.30-5.90) m/uL Hgb 9.0 L (13.0-17.5) gm/dL Hct 22.6 L (39.0-53.0) % MCH 36.4 H (25.0-35.0) pg MCHC 39.9 H (31.0-37.0) g/dL RDW 17.0 H (11.5-15.5) % Neutrophils # (Manual) 14.10 H (1.3-7.7) k/uL Metamyelocytes # (Man) 2.74 H (0) k/uL Myelocytes # (Manual) 2.32 H (0) k/uL Promyelocytes # (Man) 0.21 H (0) k/uL Sodium 130 L (137-145) mmol/L Carbon Dioxide 32 H (22-30) mmol/L BUN 21 H (9-20) mg/dL Creatinine 0.41 L (0.66-1.25) mg/dL Calcium 7.4 L (8.4-10.2) mg/dL Microbiology - Last 24 Hours (Table) 05/08/21 18:58 Blood Culture - Final Blood No Growth after 144 hours Assessment and Plan Assessment: Assessment: Acute delirium Fever, sepsis, present on admission LLL pneumonia elevated d-dimer with no evidence of PE on CT Acute hypoxic respiratory failure possibly secondary to stage IV lung carcinoma, requiring BIPAP-->Airvo Severe Gait dysfunction Generalized weakness Hyponatremia Pancytopenia Small cell lung carcinoma, receiving chemotherapy treatments Underlying COPD with extensive tobacco and cigar use history GI prophylaxis DVT prophylaxis Full code Plan: Recommend to continue with current medications and symptomatic treatment. Multiple medical consultations including neurology, nephrology, oncology fo llowing. Pulmonary also following and given patients worsening respiratory status requiring more oxygen and desating very quickly, patient being transferred to ICU for closer monitoring and management. Vancomycin and zosyn also being added to medication regimen and repeat blood cultures ordered. In fectious disease following as well. Patient is confused but appears to be slightly more alert today. Sodium stable and continues on fluid restrictions. PT/OT following and continues to be weak. Refusing rehab. Repeat labs ordered for am. Due to multiple complex medical issues, overall prognosis is extremely guarded. Time with Patient: Greater than 30
--- NOTE | 2021-05-17 00:17 | P.PN ---
Subjective Progress Note Date: 05/16/21 This is a pleasant 70-year-old male who was recently admitted with altered mental status and per the acute delirium. Patient was recently just discharged for severe hyponatremia. Patient was evaluated by physical therapy recommending subacute rehab although patient refused at that time and wanted to go home and Homecare was being arranged. Per patient continued to be confused and more altered and so was brought back to the hospital for further evaluation. Neurology and oncology been consulted and pending. Will also consult nephrology as patient sodium continues to be low and is currently 127. Patient does have an extensive past medical history of hypertension, osteoarthritis, EtOH abuse, and also small cell lung carcinoma and is currently receiving chemo immunotherapy treatments. Patient has been on high-dose steroids with a taper of Decadron per oncology services. Patient also recently had further workup with a bronchoscopy with biopsy in March that confirmed the small cell lung carcinoma and patient also underwent PET scan and findings were extensive stage IV disease. On admission to the ER labs were found to be a WBC of 1.3, hemoglobin 10.0, platelets were 100, sodium was 126, potassium 4.7, BUN 23, creatinine 0.33, magnesium 1.8, urinalysis is negative. Patient had a CT of the brain without contrast showing no evidence of intracranial hemorrhage mass effect or midline shift the white matter is grossly preserved and there is no acute intracranial abnormality noted. Patient was admitted for further evaluation and will also have PT/OT therapy evaluate the patient and will consult case management/older adult social work specialist to evaluate for ECF. Consultations currently pending. 05/10/2021 Patient is seen and evaluated in follow-up today currently sitting up in the chair. Patient being followed closely by nephrology. Patient continues with confusion at times and recommend PT/OT evaluation for possible ECF. Oncology also following along with neurology and LS-spine MRI is ordered and pending at this time. Patient continues with low-grade fevers and is maintained on IV antibiotics and will continue. Infectious disease was consulted and pending. Patient received a dose of Samsca yesterday and sodium improved at 131 today and recommend continue with fluid restrictions and will repeat labs. 05/11/2021 Patient is seen in follow-up today no acute overnight issues noted. Multiple medical consultations including nephrology, oncology, neurology following. Infectious disease also following and patient is maintained on IV cefepime and vancomycin has been discontinued. Patient had been having low-grade temps with a T-max of 102.6 and is currently afebrile for the last 24 hours now. Sputum culture along with influenza and RSV testing currently pending. This was discussed with nursing staff and the cultures will be obtained. Patient underwent MRI of the LS spine and degenerative disc disease with facet arthropathy noted and also there were 2 nonspecific enhancing lumbosacral nerves that are negative and there is no suspicious clumping or nodular enhancement images suggest neoplastic involvement in the lumbosacral spine canal. Neurology following recommending outpatient follow-up with further EMG testing and studies is necessary. Sodium improved at 133 today and potassium found to be low at 3.2 and will replace magnesium is 1.8 today. Patient requiring 4 L of oxygen and states he does not wear oxygen in the outpatient setting and will consult pulmonary which is pending at this time. Patient denies chest pain or shortness of breath. Patient reported that he was told his oxygen saturation is low and placed on oxygen. 05/12/2021 Patient is seen in follow up and appears calm and in no distress. Patient is confused with periods of being appropriate. Patient has increased oxygen demand now at 6 L. D-dimer was elevated and CTA ordered with no evidence of PE. RSV, covid, influenza are negative. Patient is afebrile. Patient to have mri of the cervical spine today with neurology following. Possible pneumonia or viral illness being considered. 05/13/2021 Patient is seen and evaluated in follow-up today continues to be closely monitored with multiple medical consultations following. Patient more alert today although continues with periods of confusion. Patient currently sitting up in the chair and continues on 6 L via nasal cannula. WBC is elevated at 17.7 today possible component of recent chemotherapy versus dexamethasone use as patient is now afebrile. Physical therapy working with the patient daily patien t continues to be weak requiring assistance although also continues to refuse rehab on discharge. Patient denying any chest pain or shortness of breath. Patient is afebrile. No report of nausea or vomiting noted and patient is tolerating diet. PT/OT to continue to follow daily. 05/14/2021 Patient is evaluated sitting up in bed and continues with low oxygen saturations. When asking the patient about shortness of breath, he denies, but his pulse ox readings continue to drop. Patient was found with his oxygen tubing off and oxygen saturation quickly dropped into the 50's and was placed back on his oxygen and recovered to 90% on 6L via NC. Patient is afebrile, WBC trending up today and is 22.76. Hemoglobin is 8.7. Sodium is 134. Sputum cultures pending. Patient was on cefepime. ID following. Chest xray today shows continuing left lung diffuse edema and or infiltrate. Pulmonary following. 05/15/2021 Patient is currently transferred to MICU. Admitted to hospital due to extensive left lung pneumonia, neutropenic fever and immunosuppression on chemotherapy due to lung cancer. Overnight patient had worsening breathing status and hypoxic. Patient was placed on BiPAP and was transferred to MICU. Currently continued on vancomycin and Zosyn. Transition to nasal cannula oxygen high flow with 50 L and FiO2 67%. Laboratory data showed WBC improved to 21.1 hemoglobin 9.0 and platelets 226 Sodium 130 potassium 3.5 chloride 98 bicarb is 32 BUN 21 creatinine 0.41 and calcium 7.4 05/16/2021 Patient is in the MICU. Currently requiring high flow oxygen Airvo at 50 L and FiO2 65%. Awake and alert. No complaints of chest pain. Continue to be on antibiotics in the form of vancomycin and Zosyn for left lower lobe pneumonia. Patient also has right hilar small cell lung cancer. Metastatic. Laboratory data showed WBC 20.3 hemoglobin 8.1 and platelets 330 sodium 131 potassium 4.2 chloride 100 bicarb is 31 BUN 49 creatinine 0.40 and blood sugar is 165 calcium 7.3. Patient has been afebrile. No nausea or vomiting or diarrhea. Tolerating oral diet. No cough or sputum production. No chest pain. Pulmonary and ID is on board. Review of systems: Constitutional: No reports of fatigue, fever, or chills Cardiovascular: No reports of chest pain or palpitations Respiratory: No reports of shortness of breath or cough GI: No reports of nausea, vomiting, or diarrhea : No reports of dysuria or retention Neurovascular: No reports of weakness or numbness All medications have been reviewed Objective - Vital Signs Vital signs: Vital Signs Temp 97.8 F 05/16/21 16:00 Pulse 95 05/16/21 17:00 Resp 20 05/16/21 17:00 BP 146/82 05/16/21 17:00 Pulse Ox 100 05/16/21 17:00 Intake & Output 05/15/21 05/16/21 05/16/21 18:59 06:59 18:59 Intake Total 1050 1550 1600 Output Total 80 590 350 Balance 000 587 7678 Weight 56.8 kg Intake: IV 750 1550 1100 Piperacillin-Tazobactam 3 100 100 .375 gm In Sodium Chloride 0.9% 100 ml @ 25 mls/hr IVPB Q8HR [facility] Rx# :[id number] Potassium Chloride IVPB 200 Sodium Chloride 0.9% 1, 400 1000 1100 000 ml @ 100 mls/hr IV . Q10H [facility] Rx#:[id number] Vancomycin 1,000 mg In 250 250 Sodium Chloride 0.9% 250 ml @ 125 mls/hr IVPB Q8HR [facility] Rx#:[id number] Oral 300 500 Output: Urine 80 590 350 Other: Voiding Method Incontinent Incontinent Incontinent # Voids 1 - Exam PHYSICAL EXAMINATION: GENERAL: The patient is alert and awake, continues to be confused at times, thin built, cachectic, ill-appearing. HEENT: Pupils are round and equally reacting to light. EOMI. does have scleral icterus. No conjunctival pallor. Normocephalic, atraumatic. No pharyngeal erythema. No thyromegaly. CARDIOVASCULAR: S1 and S2 muffled PULMONARY: diminished breath sounds bilaterally with some scattered rhonchi noted. ABDOMEN: soft. Non-tender on exam. Thin built. non-distended, normoactive b owel sounds. No palpable organomegaly. MUSCULOSKELETAL: No joint swelling or deformity. EXTREMITIES: No cyanosis, clubbing, or pedal edema. NEUROLOGICAL: Gross neurological examination did not reveal any focal deficits. Diffuse weakness SKIN: No rashes. - Labs CBC & Chem 7: 05/16/21 07:09 05/16/21 07:09 Labs: Abnormal Lab Results - Last 24 Hours (Table) 05/16/21 05/16/21 05/16/21 Range/Units 07:09 07:09 11:51 WBC 20.3 H (3.8-10.6) k/uL RBC 2.57 L (4.30-5.90) m/uL Hgb 8.1 L (13.0-17.5) gm/dL Hct 23.7 L (39.0-53.0) % RDW 17.3 H (11.5-15.5) % Blast Cells % 2 H* % Neutrophils # (Manual) 12.10 H (1.3-7.7) k/uL Metamyelocytes # (Man) 1.62 H (0) k/uL Myelocytes # (Manual) 2.64 H (0) k/uL Promyelocytes # (Man) 0.81 H (0) k/uL Blast Cells # (Man) 0.41 H (0) k/uL Sodium 131 L (137-145) mmol/L Carbon Dioxide 31 H (22-30) mmol/L Creatinine 0.40 L (0.66-1.25) mg/dL Glucose 165 H (74-99) mg/dL POC Glucose (mg/dL) 233 H (75-99) mg/dL Calcium 7.3 L (8.4-10.2) mg/dL 05/16/21 Range/Units 16:39 WBC (3.8-10.6) k/uL RBC (4.30-5.90) m/uL Hgb (13.0-17.5) gm/dL Hct (39.0-53.0) % RDW (11.5-15.5) % Blast Cells % % Neutrophils # (Manual) (1.3-7.7) k/uL Metamyelocytes # (Man) (0) k/uL Myelocytes # (Manual) (0) k/uL Promyelocytes # (Man) (0) k/uL Blast Cells # (Man) (0) k/uL Sodium (137-145) mmol/L Carbon Dioxide (22-30) mmol/L Creatinine (0.66-1.25) mg/dL Glucose (74-99) mg/dL POC Glucose (mg/dL) 230 H (75-99) mg/dL Calcium (8.4-10.2) mg/dL Assessment and Plan Assessment: Assessment: Acute delirium Fever, sepsis, present on admission LLL pneumonia elevated d-dimer with no evidence of PE on CT Acute hypoxic respiratory failure possibly secondary to stage IV lung carcinoma, requiring BIPAP-->Airvo Severe Gait dysfunction Generalized weakness Hyponatremia Pancytopenia Small cell lung carcinoma, receiving chemotherapy treatments Underlying COPD with extensive tobacco and cigar use history GI prophylaxis DVT prophylaxis Full code Plan: Recommend to continue with current medications and symptomatic treatment. Multiple medical consultations including neurology, nephrology, oncology following. Pulmonary also following and given patients worsening respiratory status requiring more oxygen and desating very quickly, patient being transferred to ICU for closer monitoring and management. Vancomycin and zosyn also being added to medication regimen and repeat blood cultures ordered. Infectious disease following as well. Patient is confused but appears to be slightly more alert today. Sodium stable and continues on fluid restrictions. PT/OT following and continues to be weak. Refusing rehab. Repeat labs ordered for am. Due to multiple complex medical issues, overall prognosis is extremely guarded. Time with Patient: Greater than 30
[2021-05-17] MEDS: IPRATROPIUM-ALBUTEROL 3 ML NEB INHALATION SCH ×6 (01:03→21:07)
[2021-05-17 05:56] LABS: Anisocytosis Slight; HCT 22.3 % (39.0-53.0); HGB 7.4 gm/dL (13.0-17.5); MCH 31.2 pg (25.0-35.0); MCHC 33.3 g/dL (31.0-37.0); MCV 93.8 fL (80.0-100.0); Mean Platelet Volume 8.4; Platelet Count 414 k/uL (150-450); Poikilocytosis Slight; RBC 2.37 m/uL (4.30-5.90); RDW 16.5 % (11.5-15.5)
[2021-05-17 06:10] LABS: African American GFR (CKD) >90 (>60 ml/min/1.73 sqM); Anion Gap 1 mmol/L; Blood Urea Nitrogen 17 mg/dL (9-20); Calcium 7.4 mg/dL (8.4-10.2); Carbon Dioxide 32 mmol/L (22-30); Chloride 101 mmol/L (98-107); Glucose 131 mg/dL (74-99); Non-African American GFR(CKD) >90 (>60 ml/min/1.73 sqM); Potassium 3.6 mmol/L (3.5-5.1); Sodium 134 mmol/L (137-145)
[2021-05-17 06:22] LABS: Band Neutrophils % 8 %; Metamyelocytes % 7 %; Monocytes # (M) 0.35 k/uL (0-1.0); Myelocytes % 8 %; Neutrophils % (M) 50 %; Promyelocytes # (M) 0.53 k/uL (0); Promyelocytes % 3 %
[2021-05-17 06:23] LABS: Lymphocytes # (M) 3.15 k/uL (1.0-4.8); Metamyelocytes # (M) 1.23 k/uL (0); Nucleated Red Blood Cells 1 /100 WBC (0-0); Total Cells Counted 200; WBC 17.5 k/uL (3.8-10.6)
[2021-05-17 06:24] LABS: Anisocytosis (M) Present; Poikilocytosis (M) Present; Polychromasia Present; Toxic Granulation Present
[2021-05-17] MEDS: methylPREDNISolone SOD SUCCI 125 MG/2 ML VIAL IV SCH ×3 (06:35→18:25)
[2021-05-17 06:42] LABS: Glucose,Whole Blood 152 mg/dL (75-99)
[2021-05-17] MEDS: INSULIN ASPART (NovoLOG) 100 UNIT/ML VIAL SQ SCH ×4 (06:44→20:02)
[2021-05-17] MEDS: OLANZapine 2.5 MG TAB PO SCH (08:53)
[2021-05-17] MEDS: FOLIC ACID 1 MG TAB PO SCH (08:53)
[2021-05-17] MEDS: HEPARIN SODIUM,PORCINE/PF 5,000 UNIT/0.5 ML SYRINGE SQ SCH ×2 (08:53→19:59)
[2021-05-17] MEDS: MAGNESIUM OXIDE 400 MG TAB PO SCH (08:54)
[2021-05-17] MEDS: POTASSIUM CHLORIDE 10 MEQ in SODIUM CHLORIDE 0.9% 100 ML IVPB SCH ×2 (08:55→10:10)
[2021-05-17] MEDS: VANCOMYCIN 1,000 MG in SODIUM CHLORIDE 0.9% 250 ML IVPB SCH ×2 (08:59→16:09)
--- NOTE | 2021-05-17 11:43 | P.PN ---
Subjective Progress Note Date: 05/17/21 Principal diagnosis: Shortness of breath This is a 68-year-old male patient is known to me. 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 I establish his diagnosis through bronchoscopy and endobronchial ultrasound with no fine-needle aspirate. The patient also was having issues with hyponatremia with a sodium was dropping consistent with underlying SIADH. He was in the hospital on 05/01/2021 after the had a sodium level 113 and the patient had a witnessed seizure. He was in the intensive care unit. CAT scan of the brain was completed and it showed no evidence of any [employer] metastases. His chest x-ray was still showing a right hilar mass and the patient was subjected to fluid restriction, hypertonic saline at patient was discharged home to be readmitted within 48 hours because of altered mentation. The patient was accordingly admitted again to the hospital. The patient was found to be febrile and the patient was treated for neutropenic fever. Noted the patient has already received a first session of systemic chemotherapy on 04/28/2021 and he completed that on 04/30/2021. MRI of the brain with and without contrast done on 03/27/2021 showed moderate atrophy. No evidence of any metastases. For now, the patient is on the oncology floor. He is being followed up by oncology, neurology and nephrology. The patient had a t emperature of 102.6 and initially the patient was covered with a combination of antibiotics including cefepime and vancomycin. Subsequently, infectious disease discontinued the vancomycin and the patient is only on IV cefepime for now.. MRI of the lumbosacral spine showed degenerative disc disease and facet arthropathy and some nonspecific enhancing lumbosacral nerves that may be vascular but it is indeterminate. Note that the patient's fever has broken the patient has been afebrile over the past 24 hours. Nevertheless, he is slightly tachycardic. His white cell count during this current admission was as low as 1.2 and currently is up to 7.6. Hemoglobin is at 8.5. Platelet count is at 95. His d-dimer was at 19.6. BUN is at 14 with a creatinine of 0.3, and the sodium level of 133. The blood cultures been negative. The urine culture has been negative. The patient was given zarxio The patient is seen today 05/12/2021 in follow-up on the regular medical floor. He is currently resting in bed. Awake and alert in no acute distress. More oriented today compared to yesterday. He is maintaining O2 saturation in the low 90s on 6 L high flow nasal cannula. He's been afebrile. Hemodynamically stable. Dopplers of the lower extremities negative for DVT. CT angiogram ruled out pulmonary embolism. There is extensive pulmonary infiltrates. Massive mediastinal bronchial adenopathy consistent with tumor. Pulmonary infiltrates significantly increased compared to recent PET scan on 04/16/2021. Could represent lymphangitic metastatic disease in the left lung. Right upper lobe masslike infiltrate without change. MRI of the cervical spine revealed stable appearance of the cervical spine with reversal of the normal cervical lordosis, disc desiccation with disc bulging and multilevel central stenosis. No enhancing lesions of the cervical spine. Right supra-clavicular adenopathy. Blood cultures reveal no growth to date. Urine culture no growth. D-dimer 19.6. Sodium 134. Potassium 3.7. Bicarb 24. BUN 15. Creatinine 0.4. Influenza screen negative. RSV negative. COVID-19 screen negative. He is continued on heparin for DVT prophylaxis. Antibiotics in the form of cefepime. Remains on dexamethasone 1 mg daily. The patient is seen today 05/13/2021 in follow-up on the regular medical floor. He is resting comfortably in bed. Awake and alert in no acute distress. More oriented today compared to yesterday. He denies any worsening shortness of eula th, cough or congestion. The cultures reveal no growth. Urine culture revealed no growth. Follow-up blood cultures revealed no growth. White count 17.7. Hemoglobin 8.8. Platelets 152. Sodium 137. Potassium 3.5. BUN 17. Creatinine 0.3. He is continued on cefepime, dexamethasone. Heparin for DVT prophylaxis. The patient is seen today 05/14/2021 in follow-up on the regular medical floor. He is currently resting in bed. Awake and alert. Some issues with oxygen desaturations he was found with his oxygen off at one point with O2 saturation at 56%. He is currently at 92% on 6 L high flow nasal cannula. Chest x-ray reveals continued worsening left lung diffuse edema/infiltrates. Persistent right upper lobe lung nodule. Blood cultures revealing no growth. Urine culture no growth. Follow-up blood culture no growth. White count 22.7. Hemoglobin 8.7. Sodium 134. Potassium 3.6. Creatinine 0.3. Urine osmolality 960. He is continued on cefepime. 05/15/2021, the patient is being seen in follow-up. The patient is currently in the intensive care unit. Noted the patient got transferred to the ICU the patient was getting progressively more short of breath and hypoxic. There is development of an extensive left lung pneumonia in the setting of immunosuppression, lung cancer and chemotherapy. The patient initially presented to us with neutropenic fever. The patient is currently on examination Zosyn and vancomycin. He is laying down comfortably in bed. He is quite debilitated and getting progressively more weak. Nevertheless, this morning, his breathing is not much labored. Is on high flow oxygen utilizing Airvo and the patient is currently on 50 L with an FiO2 of 67% of the patient's current pulse ox is 96%. IV fluids are currently at KVO. White cell count is at 21 with a hemoglobin of 9 and a platelet count of 226. He is able to tolerate diet. Trace edema lower extremity is bilaterally. Remains on Decadron 1 mg by mouth on a daily basis. No altered mentation at this point in time. Sodium level is stable. 05/17/2071, condition is stable. The patient is repeat chest exit that that showed continue with left lung diffuse pulmonary infiltrates consistent with pneumonia. He does have underlying COPD and a right hilar small cell lung cancer, metastatic at this stage. The patient remains on Airvo and the patient is currently on 50 L with an FiO2 of 65%. Pulse ox 99%. He remains on examination Zosyn and vancomycin. White cell count is at 20 with a hemoglobin of 8.1 and a platelet count of 3:30. The bicarb is a 31 with a BUN of 14 and a creatinine of 0.9. No other significant events overnight. The patient remains on IV Solu Medrol. No altered mentation. No hemoptysis. No swelling in the face or arm. The chest x-ray findings and essentially stable. Oxidation remains stable on Airvo. On 05/17/2021 patient seen in follow-up in the intensive care unit, he is awake and alert, oriented 3, resting comfortably in bed, he remains on high flow oxygen per Airvo currently at 60 L/m and FiO2 at 85% and his pulse ox is 100%. However nurse reports that patient has very poor reserve, and easily desaturates and takes quite a while to recover with any exertion. Breathing quite comfortably at rest, we will continue dropping FiO2 as tolerated. Chest x-ray from yesterday showed continued left lung diffuse edema and/or infiltrate on background chronic emphysematous changes and no right upper lung neoplasm without significant change from one day earlier. Patient currently remains on IV steroids Solu-Medrol 60 mg every 6 hours, he is on nebulized bronchodilators, he is on empiric antibiotics in the form of Zosyn and vancomycin. ID Service is following, so far blood and urine cultures have been negative. His white blood cell count is improving on today's labs and is down to 17.5, hemoglobin is 7.4, platelet count is 414, sodium is 134, potassium is 3.3, chloride is 101, CO2 is 32, BUN is 17, creatinine 0.41. His pro calcitonin level was negative at 0.19. Patient tested negative for influenza A and B, RSV and COVID 19 Objective - Vital Signs Vital signs: Vital Signs Temp 98.5 F 05/17/21 08:00 Pulse 83 05/17/21 10:00 Resp 20 05/17/21 10:00 BP 137/79 05/17/21 10:00 Pulse Ox 100 05/17/21 10:00 Intake & Output 05/16/21 05/17/21 05/17/21 18:59 06:59 18:59 Intake Total 1700 1350 780 Output Total 350 575 0 Balance 1350 775 780 Weight 58.9 kg Intake: IV 1200 1350 560 Piperacillin-Tazobactam 3 100 100 .375 gm In Sodium Chloride 0.9% 100 ml @ 25 mls/hr IVPB Q8HR [facility] Rx# :[id number] Potassium Chloride IVPB 100 Sodium Chloride 0.9% 1, 1200 1000 110 000 ml @ 50 mls/hr IV . Q20H [facility]G Rx#:[id number] Vancomycin 1,000 mg In 250 250 Sodium Chloride 0.9% 250 ml @ 125 mls/hr IVPB Q8HR [facility]G Rx#:[id number] Intake, IV Titration 100 Amount Potassium Chloride 10 meq 100 In Sodium Chloride 0.9% 100 ml @ 105 mls/hr IVPB Q1H [facility]G Rx#:[id number] Oral 500 120 Output: Urine 350 575 0 Other: Voiding Method Incontinent Incontinent External Catheter - Exam GENERAL EXAM: Alert, very pleasant, 70-year-old white male, on Airvo at 60 L and FiO2 of 85%, with a pulse ox of 100% comfortable in no apparent distress. HEAD: Normocephalic/atraumatic. EYES: Normal reaction of pupils, equal size. Conjunctiva pink, sclera white. NOSE: Clear with pink turbinates. THROAT: No erythema or exudates. NECK: No masses, no JVD, no thyroid enlargement, no adenopathy. CHEST: No chest wall deformity. Symmetrical expansion. LUNGS: Equal air entry with no crackles, wheeze, rhonchi or dullness. CVS: Regular rate and rhythm, normal S1 and S2, no gallops, no murmurs, no rubs ABDOMEN: Soft, nontender. No hepatosplenomegaly, normal bowel sounds, no guarding or rigidity. EXTREMITIES: No clubbing, no edema, no cyanosis, 2+ pulses and upper and lower extremities. MUSCULOSKELETAL: Muscle strength and tone normal. SPINE: No scoliosis or deformity SKIN: No rashes CENTRAL NERVOUS SYSTEM: Alert and oriented -3. No focal deficits, tone is normal in all 4 extremities. PSYCHIATRIC: Alert and oriented -3. Appropriate affect. Intact judgment and insight. - Labs CBC & Chem 7: 05/17/21 05:26 05/17/21 10:51 Labs: Abnormal Lab Results - Last 24 Hours (Table) 05/16/21 05/16/21 05/16/21 Range/Units 11:51 16:39 21:13 WBC (3.8-10.6) k/uL RBC (4.30-5.90) m/uL Hgb (13.0-17.5) gm/dL Hct (39.0-53.0) % RDW (11.5-15.5) % Blast Cells % % Neutrophils # (Manual) (1.3-7.7) k/uL Metamyelocytes # (Man) (0) k/uL Myelocytes # (Manual) (0) k/uL Promyelocytes # (Man) (0) k/uL Blast Cells # (Man) (0) k/uL Nucleated RBCs (0-0) /100 WBC Sodium (137-145) mmol/L Potassium (3.5-5.1) mmol/L Carbon Dioxide (22-30) mmol/L Creatinine (0.66-1.25) mg/dL Glucose (74-99) mg/dL POC Glucose (mg/dL) 233 H 230 H 146 H (75-99) mg/dL Calcium (8.4-10.2) mg/dL 05/17/21 05/17/21 05/17/21 Range/Units 05:26 05:26 06:39 WBC 17.5 H (3.8-10.6) k/uL RBC 2.37 L (4.30-5.90) m/uL Hgb 7.4 L (13.0-17.5) gm/dL Hct 22.3 L (39.0-53.0) % RDW 16.5 H (11.5-15.5) % Blast Cells % 4 H* % Neutrophils # (Manual) 10.10 H (1.3-7.7) k/uL Metamyelocytes # (Man) 1.23 H (0) k/uL Myelocytes # (Manual) 1.40 H (0) k/uL Promyelocytes # (Man) 0.53 H (0) k/uL Blast Cells # (Man) 0.70 H (0) k/uL Nucleated RBCs 1 H (0-0) /100 WBC Sodium 134 L (137-145) mmol/L Potassium (3.5-5.1) mmol/L Carbon Dioxide 32 H (22-30) mmol/L Creatinine 0.41 L (0.66-1.25) mg/dL Glucose 131 H (74-99) mg/dL POC Glucose (mg/dL) 152 H (75-99) mg/dL Calcium 7.4 L (8.4-10.2) mg/dL 05/17/21 Range/Units 10:51 WBC (3.8-10.6) k/uL RBC (4.30-5.90) m/uL Hgb (13.0-17.5) gm/dL Hct (39.0-53.0) % RDW (11.5-15.5) % Blast Cells % % Neutrophils # (Manual) (1.3-7.7) k/uL Metamyelocytes # (Man) (0) k/uL Myelocytes # (Manual) (0) k/uL Promyelocytes # (Man) (0) k/uL Blast Cells # (Man) (0) k/uL Nucleated RBCs (0-0) /100 WBC Sodium (137-145) mmol/L Potassium 3.3 L (3.5-5.1) mmol/L Carbon Dioxide (22-30) mmol/L Creatinine (0.66-1.25) mg/dL Glucose (74-99) mg/dL POC Glucose (mg/dL) (75-99) mg/dL Calcium (8.4-10.2) mg/dL Assessment and Plan Plan: Assessment: #1. Small cell lung cancer, stage IV, with early SVC syndrome, status post first cycle of systemic chemotherapy using carboplatin and IMMUNOPATHOLOGIST-16 into centric #2. Acute hypoxic respiratory failure secondary to an extensive left lung pneumonia. Possibility of lymphangitic carcinomatosis is not completely excluded. The patient presented to the hospital with neutropenic fever and subsequently developed an extensive left lung pneumonia with secondary hypoxic respiratory failure. He currently remains on high flow oxygen per Airvo at 60 L and FiO2 of 85%. Remains on a combination of Zosyn and vancomycin #3. Pancytopenia #4. Episodic SIADH, sodium level is 134, improved since admission #5. Altered mental status secondary to sepsis, improved #6. Hypertension #8. Osteoarthritis #9. Gait dysfunction #10. Underlying history of COPD with extensive tobacco and cigars use history Plan: Weaning FiO2 to keep O2 sats is at or above 90-92% Continue current antibiotics Patient is currently on Zosyn and vancomycin So far cultures are negative Sodium is stable Continue fluid restrictions Continue IV steroids Continue breathing treatments Generally patient is quite debilitated Physical therapy Increase activity as tolerated We'll continue to follow I have personally seen and examined the patient, performed the documentation and the assessment and plan as written. Number of minutes spent on the visit: [10] Time with Patient: Less than 30
[2021-05-17 12:14] LABS: Glucose,Whole Blood 178 mg/dL (75-99)
[2021-05-17] MEDS ORDERED: Potassium Replacement Protocol 1 EACH MISC MISCELLANE PRN (12:26)
[2021-05-17] MEDS: POTASSIUM CHLORIDE ER 20 MEQ TAB.ER PO SCH ×2 (12:31→14:12)
--- NOTE | 2021-05-17 12:32 | P.PN ---
Subjective Progress Note Date: 05/17/21 Principal diagnosis: SOB Remains on High Flow in the care of ICU. Objective - Vital Signs Vital signs: Vital Signs Temp 98.5 F 05/17/21 08:00 Pulse 83 05/17/21 10:00 Resp 20 05/17/21 10:00 BP 137/79 05/17/21 10:00 Pulse Ox 100 05/17/21 10:00 Intake & Output 05/16/21 05/17/21 05/17/21 18:59 06:59 18:59 Intake Total 1700 1350 780 Output Total 350 575 0 Balance 1350 775 780 Weight 58.9 kg Intake: IV 1200 1350 560 Piperacillin-Tazobactam 3 100 100 .375 gm In Sodium Chloride 0.9% 100 ml @ 25 mls/hr IVPB Q8HR [facility] Rx# :[id number] Potassium Chloride IVPB 100 Sodium Chloride 0.9% 1, 1200 1000 110 000 ml @ 50 mls/hr IV . Q20H [facility]G Rx#:[id number] Vancomycin 1,000 mg In 250 250 Sodium Chloride 0.9% 250 ml @ 125 mls/hr IVPB Q8HR [facility] Rx#:[id number] Intake, IV Titration 100 Amount Potassium Chloride 10 meq 100 In Sodium Chloride 0.9% 100 ml @ 105 mls/hr IVPB Q1H [facility]G Rx#:[id number] Oral 500 120 Output: Urine 350 575 0 Other: Voiding Method Incontinent Incontinent External Catheter - Exam High Flow Increased effort with minimal threshold to stimuli Alert Irreg Abd ndnt Ext BLE mild edema - Labs CBC & Chem 7: 05/17/21 05:26 05/17/21 10:51 Labs: Abnormal Lab Results - Last 24 Hours (Table) 05/16/21 05/16/21 05/17/21 Range/Units 16:39 21:13 05:26 WBC 17.5 H (3.8-10.6) k/uL RBC 2.37 L (4.30-5.90) m/uL Hgb 7.4 L (13.0-17.5) gm/dL Hct 22.3 L (39.0-53.0) % RDW 16.5 H (11.5-15.5) % Blast Cells % 4 H* % Neutrophils # (Manual) 10.10 H (1.3-7.7) k/uL Metamyelocytes # (Man) 1.23 H (0) k/uL Myelocytes # (Manual) 1.40 H (0) k/uL Promyelocytes # (Man) 0.53 H (0) k/uL Blast Cells # (Man) 0.70 H (0) k/uL Nucleated RBCs 1 H (0-0) /100 WBC Sodium (137-145) mmol/L Potassium (3.5-5.1) mmol/L Carbon Dioxide (22-30) mmol/L Creatinine (0.66-1.25) mg/dL Glucose (74-99) mg/dL POC Glucose (mg/dL) 230 H 146 H (75-99) mg/dL Calcium (8.4-10.2) mg/dL 05/17/21 05/17/21 05/17/21 Range/Units 05:26 06:39 10:51 WBC (3.8-10.6) k/uL RBC (4.30-5.90) m/uL Hgb (13.0-17.5) gm/dL Hct (39.0-53.0) % RDW (11.5-15.5) % Blast Cells % % Neutrophils # (Manual) (1.3-7.7) k/uL Metamyelocytes # (Man) (0) k/uL Myelocytes # (Manual) (0) k/uL Promyelocytes # (Man) (0) k/uL Blast Cells # (Man) (0) k/uL Nucleated RBCs (0-0) /100 WBC Sodium 134 L (137-145) mmol/L Potassium 3.3 L (3.5-5.1) mmol/L Carbon Dioxide 32 H (22-30) mmol/L Creatinine 0.41 L (0.66-1.25) mg/dL Glucose 131 H (74-99) mg/dL POC Glucose (mg/dL) 152 H (75-99) mg/dL Calcium 7.4 L (8.4-10.2) mg/dL 05/17/21 Range/Units 12:12 WBC (3.8-10.6) k/uL RBC (4.30-5.90) m/uL Hgb (13.0-17.5) gm/dL Hct (39.0-53.0) % RDW (11.5-15.5) % Blast Cells % % Neutrophils # (Manual) (1.3-7.7) k/uL Metamyelocytes # (Man) (0) k/uL Myelocytes # (Manual) (0) k/uL Promyelocytes # (Man) (0) k/uL Blast Cells # (Man) (0) k/uL Nucleated RBCs (0-0) /100 WBC Sodium (137-145) mmol/L Potassium (3.5-5.1) mmol/L Carbon Dioxide (22-30) mmol/L Creatinine (0.66-1.25) mg/dL Glucose (74-99) mg/dL POC Glucose (mg/dL) 178 H (75-99) mg/dL Calcium (8.4-10.2) mg/dL Assessment and Plan (1) Acute delirium Narrative/Plan: Improving, possibly related to hypoxia Current Visit: Yes Status: Acute Priority: High Code(s): R41.0 - DISORIENTATION, UNSPECIFIED SNOMED Code(s): 9506973 (2) Pancytopenia Narrative/Plan: Secondary to chemotherapy Current Visit: Yes Status: Acute Priority: Medium Code(s): D61.818 - OTHER PANCYTOPENIA SNOMED Code(s): 147526070 (3) Hyponatremia Current Visit: No Status: Acute Priority: High Code(s): E87.1 - HYPO- OSMOLALITY AND HYPONATREMIA SNOMED Code(s): 47643761 (4) Lung cancer Narrative/Plan: Status post cycle one of chemotherapy without neulasta Status post Carbo, RUN LEAD-16 and immune therapy Goal is to recover from hospitalization and restart treatment as soon as safe Current Visit: No Status: Acute Code(s): C34.90 - MALIGNANT NEOPLASM OF UNSP PART OF UNSP BRONCHUS OR LUNG SNOMED Code(s): 807942030 (5) SIADH (syndrome of inappropriate ADH production) Narrative/Plan: Nephrology Current Visit: No Status: Acute Priority: Medium Code(s): E22.2 - SYNDROME OF INAPPROPRIATE SECRETION OF ANTIDIURETIC HORMONE SNOMED Code(s): 50706759 Plan: Assessment and Plan Fever Afebrile today
[2021-05-17 16:49] LABS: Glucose,Whole Blood 240 mg/dL (75-99)
[2021-05-17 19:56] LABS: Glucose,Whole Blood 159 mg/dL (75-99)
[2021-05-17] MEDS: INSULIN DETEMIR (LEVEMIR) 100 UNIT/ML SYR SQ SCH (20:21)
--- NOTE | 2021-05-17 22:06 | P.PN ---
Subjective Progress Note Date: 05/17/21 Principal diagnosis: Febrile neutropenia Patient is a 70 year old male with a past medical history significant for metastatic right upper lobe small cell cancer diagnosed in 04/12/2021 for the patient is currently on chemotherapy presented to hospital weakness subsequent spiking a fever and did have low white count. Patient did have a CT and a gram of the chest completed on 05/11/2021 with evidence of right upper lobe consolidation any increasing infiltrate On today's evaluation that is 05/17/2021 the patient denies any fever or chills, the patient is breathing comfortably however is still requiring high flow oxygen , patient denies chest pain he did have a cough but not bringing up any sputum , the patient denies abdominal pain and no diarrhea Objective - Vital Signs Vital signs: Vital Signs Temp 98.2 F 05/17/21 12:00 Pulse 96 05/17/21 12:00 Resp 18 05/17/21 12:00 BP 152/87 05/17/21 11:00 Pulse Ox 100 05/17/21 12:00 Intake & Output 05/16/21 05/17/21 05/17/21 18:59 06:59 18:59 Intake Total 1700 1350 1000 Output Total 350 575 0 Balance 8432 406 6089 Weight 58.9 kg Intake: IV 1200 1350 660 Piperacillin-Tazobactam 3 100 100 .375 gm In Sodium Chloride 0.9% 100 ml @ 25 mls/hr IVPB Q8HR [facility] Rx# :[id number] Potassium Chloride IVPB 100 Sodium Chloride 0.9% 1, 1200 1000 210 000 ml @ 50 mls/hr IV . Q20H [facility] Rx#:[id number] Vancomycin 1,000 mg In 250 250 Sodium Chloride 0.9% 250 ml @ 125 mls/hr IVPB Q8HR [facility] Rx#:[id number] Intake, IV Titration 100 Amount Potassium Chloride 10 meq 100 In Sodium Chloride 0.9% 100 ml @ 105 mls/hr IVPB Q1H [facility] Rx#:[id number] Oral 500 240 Output: Urine 350 575 0 Other: Voiding Method Incontinent Incontinent External Catheter - Exam GENERAL DESCRIPTION: An elderly male lying in bed in no distress RESPIRATORY SYSTEM: Unlabored breathing , decreased breath sounds at bases HEART: S1 S2 regular rate and rhythm , ABDOMEN: Soft , no tenderness EXTREMITIES: No edema feet - Labs CBC & Chem 7: 05/17/21 05:26 05/17/21 10:51 Labs: Abnormal Lab Results - Last 24 Hours (Table) 05/16/21 05/16/21 05/17/21 Range/Units 16:39 21:13 05:26 WBC 17.5 H (3.8-10.6) k/uL RBC 2.37 L (4.30-5.90) m/uL Hgb 7.4 L (13.0-17.5) gm/dL Hct 22.3 L (39.0-53.0) % RDW 16.5 H (11.5-15.5) % Blast Cells % 4 H* % Neutrophils # (Manual) 10.10 H (1.3-7.7) k/uL Metamyelocytes # (Man) 1.23 H (0) k/uL Myelocytes # (Manual) 1.40 H (0) k/uL Promyelocytes # (Man) 0.53 H (0) k/uL Blast Cells # (Man) 0.70 H (0) k/uL Nucleated RBCs 1 H (0-0) /100 WBC Sodium (137-145) mmol/L Potassium (3.5-5.1) mmol/L Carbon Dioxide (22-30) mmol/L Creatinine (0.66-1.25) mg/dL Glucose (74-99) mg/dL POC Glucose (mg/dL) 230 H 146 H (75-99) mg/dL Calcium (8.4-10.2) mg/dL 05/17/21 05/17/21 05/17/21 Range/Units 05:26 06:39 10:51 WBC (3.8-10.6) k/uL RBC (4.30-5.90) m/uL Hgb (13.0-17.5) gm/dL Hct (39.0-53.0) % RDW (11.5-15.5) % Blast Cells % % Neutrophils # (Manual) (1.3-7.7) k/uL Metamyelocytes # (Man) (0) k/uL Myelocytes # (Manual) (0) k/uL Promyelocytes # (Man) (0) k/uL Blast Cells # (Man) (0) k/uL Nucleated RBCs (0-0) /100 WBC Sodium 134 L (137-145) mmol/L Potassium 3.3 L (3.5-5.1) mmol/L Carbon Dioxide 32 H (22-30) mmol/L Creatinine 0.41 L (0.66-1.25) mg/dL Glucose 131 H (74-99) mg/dL POC Glucose (mg/dL) 152 H (75-99) mg/dL Calcium 7.4 L (8.4-10.2) mg/dL 05/17/21 Range/Units 12:12 WBC (3.8-10.6) k/uL RBC (4.30-5.90) m/uL Hgb (13.0-17.5) gm/dL Hct (39.0-53.0) % RDW (11.5-15.5) % Blast Cells % % Neutrophils # (Manual) (1.3-7.7) k/uL Metamyelocytes # (Man) (0) k/uL Myelocytes # (Manual) (0) k/uL Promyelocytes # (Man) (0) k/uL Blast Cells # (Man) (0) k/uL Nucleated RBCs (0-0) /100 WBC Sodium (137-145) mmol/L Potassium (3.5-5.1) mmol/L Carbon Dioxide (22-30) mmol/L Creatinine (0.66-1.25) mg/dL Glucose (74-99) mg/dL POC Glucose (mg/dL) 178 H (75-99) mg/dL Calcium (8.4-10.2) mg/dL Assessment and Plan (1) Fever Current Visit: Yes Status: Acute Code(s): R50.9 - FEVER, UNSPECIFIED SNOMED Code(s): 941209080 Plan: 1patient with a stage IV small cell cancer right upper lobe this patient has been started on chemotherapy presented to the hospital with some mental status changes and has developed a fever source is likely right upper lobe pneumonia as no other obvious focus of infection urine has been negative abdominal soft on clinical examination no evidence of any cellulitis or joint swelling. 2sputum culture requested and can but not collected 3patient is currently being treated with zosyn and vancomycin which will be continued while monitoring his clinical course closely and continue supportive care Time with Patient: Less than 30
--- NOTE | 2021-05-17 23:47 | P.PN ---
Subjective Progress Note Date: 05/17/21 This is a pleasant 70-year-old male who was recently admitted with altered mental status and per the acute delirium. Patient was recently just discharged for severe hyponatremia. Patient was evaluated by physical therapy recommending subacute rehab although patient refused at that time and wanted to go home and Homecare was being arranged. Per patient continued to be confused and more altered and so was brought back to the hospital for further evaluation. Neurology and oncology been consulted and pending. Will also consult nephrology as patient sodium continues to be low and is currently 127. Patient does have an extensive past medical history of hypertension, osteoarthritis, EtOH abuse, and also small cell lung carcinoma and is currently receiving chemo immunotherapy treatments. Patient has been on high-dose steroids with a taper of Decadron per oncology services. Patient also recently had further workup with a bronchoscopy with biopsy in March that confirmed the small cell lung carcinoma and patient also underwent PET scan and findings were extensive stage IV disease. On admission to the ER labs were found to be a WBC of 1.3, hemoglobin 10.0, platelets were 100, sodium was 126, potassium 4.7, BUN 23, creatinine 0.33, magnesium 1.8, urinalysis is negative. Patient had a CT of the brain without contrast showing no evidence of intracranial hemorrhage mass effect or midline shift the white matter is grossly preserved and there is no acute intracranial abnormality noted. Patient was admitted for further evaluation and will also have PT/OT therapy evaluate the patient and will consult case management/director social welfare to evaluate for ECF. Consultations currently pending. 05/10/2021 Patient is seen and evaluated in follow-up today currently sitting up in the chair. Patient being followed closely by nephrology. Patient continues with confusion at times and recommend PT/OT evaluation for possible ECF. Oncology also following along with neurology and LS-spine MRI is ordered and pending at this time. Patient continues with low-grade fevers and is maintained on IV antibiotics and will continue. Infectious disease was consulted and pending. Patient received a dose of Samsca yesterday and sodium improved at 131 today and recommend continue with fluid restrictions and will repeat labs. 05/11/2021 Patient is seen in follow-up today no acute overnight issues noted. Multiple medical consultations including nephrology, oncology, neurology following. Infectious disease also following and patient is maintained on IV cefepime and vancomycin has been discontinued. Patient had been having low-grade temps with a T-max of 102.6 and is currently afebrile for the last 24 hours now. Sputum culture along with influenza and RSV testing currently pending. This was discussed with nursing staff and the cultures will be obtained. Patient underwent MRI of the LS spine and degenerative disc disease with facet arthropathy noted and also there were 2 nonspecific enhancing lumbosacral nerves that are negative and there is no suspicious clumping or nodular enhancement images suggest neoplastic involvement in the lumbosacral spine canal. Neurology following recommending outpatient follow-up with further EMG testing and studies is necessary. Sodium improved at 133 today and potassium found to be low at 3.2 and will replace magnesium is 1.8 today. Patient requiring 4 L of oxygen and states he does not wear oxygen in the outpatient setting and will consult pulmonary which is pending at this time. Patient denies chest pain or shortness of breath. Patient reported that he was told his oxygen saturation is low and placed on oxygen. 05/12/2021 Patient is seen in follow up and appears calm and in no distress. Patient is confused with periods of being appropriate. Patient has increased oxygen demand now at 6 L. D-dimer was elevated and CTA ordered with no evidence of PE. RSV, covid, influenza are negative. Patient is afebrile. Patient to have mri of the cervical spine today with neurology following. Possible pneumonia or viral illne ss being considered. 05/13/2021 Patient is seen and evaluated in follow-up today continues to be closely monitored with multiple medical consultations following. Patient more alert today although continues with periods of confusion. Patient currently sitting up in the chair and continues on 6 L via nasal cannula. WBC is elevated at 17.7 today possible component of recent chemotherapy versus dexamethasone use as patient is now afebrile. Physical therapy working with the patient daily patie nt continues to be weak requiring assistance although also continues to refuse rehab on discharge. Patient denying any chest pain or shortness of breath. Patient is afebrile. No report of nausea or vomiting noted and patient is tolerating diet. PT/OT to continue to follow daily. 05/14/2021 Patient is evaluated sitting up in bed and continues with low oxygen saturations. When asking the patient about shortness of breath, he denies, but his pulse ox readings continue to drop. Patient was found with his oxygen tubing off and oxygen saturation quickly dropped into the 50's and was placed back on his oxygen and recovered to 90% on 6L via NC. Patient is afebrile, WBC trending up today and is 22.76. Hemoglobin is 8.7. Sodium is 134. Sputum cultures pending. Patient was on cefepime. ID following. Chest xray today shows continuing left lung diffuse edema and or infiltrate. Pulmonary following. 05/15/2021 Patient is currently transferred to MICU. Admitted to hospital due to extensive left lung pneumonia, neutropenic fever and immunosuppression on chemotherapy due to lung cancer. Overnight patient had worsening breathing status and hypoxic. Patient was placed on BiPAP and was transferred to MICU. Currently continued on vancomycin and Zosyn. Transition to nasal cannula oxygen high flow with 50 L and FiO2 67%. Laboratory data showed WBC improved to 21.1 hemoglobin 9.0 and platelets 226 Sodium 130 potassium 3.5 chloride 98 bicarb is 32 BUN 21 creatinine 0.41 and calcium 7.4 05/16/2021 Patient is in the MICU. Currently requiring high flow oxygen Airvo at 50 L and FiO2 65%. Awake and alert. No complaints of chest pain. Continue to be on antibiotics in the form of vancomycin and Zosyn for left lower lobe pneumonia. Patient also has right hilar small cell lung cancer. Metastatic. Laboratory data showed WBC 20.3 hemoglobin 8.1 and platelets 330 sodium 131 potassium 4.2 chloride 100 bicarb is 31 BUN 49 creatinine 0.40 and blood sugar is 165 calcium 7.3. Patient has been afebrile. No nausea or vomiting or diarrhea. Tolerating oral diet. No cough or sputum production. No chest pain. Pulmonary and ID is on board. 05/17/2021 Patient is seen in follow up and continues in the ICU with pulmonary, oncology, and ID following. Patient is continued on Zosyn and Vanco and will continue. WBC trending down and is 17 today. Patient is afebrile. Patient continues on high f low airvo with settings of 60/85 abd continue to wean FI02 as tolerated. Encouraged increased activity as tolerated and continue with PT/OT. Oncology following and current treatment on hold until respiratory status improves. Patient also continued on IV steroids and breathing inhalational treatments and will continue. Review of systems: Constitutional: No reports of fatigue, fever, or chills Cardiovascular: No reports of chest pain or palpitations Respiratory: No reports of worsening shortness of breath and tolerating airvo GI: No reports of nausea, vomiting, or diarrhea : No reports of dysuria or retention Neurovascular: No reports of weakness or numbness All medications have been reviewed Active Medications Acetaminophen (Acetaminophen Tab 325 Mg Tab) 650 mg PO Q6HR PRN PRN Reason: Fever and/ or Pain Last Admin: 05/08/21 13:46 Dose: 650 mg Documented by: Albuterol/Ipratropium (Ipratropium-Albuterol 3 Ml Neb) 3 ml INHALATION RT-Q4H [facility] Last Admin: 05/17/21 16:00 Dose: 3 ml Documented by: Artificial Tears (Artificial Tears-Hypromellose Drops 15 Ml Btl) 1 drops BOTH EYES DAILY PRN PRN Reason: DRY EYES Folic Acid (Folic Acid 1 Mg Tab) 1 mg PO DAILY [facility] Last Admin: 05/17/21 08:53 Dose: 1 mg Documented by: Heparin Sodium (Porcine) (Heparin Sodium,Porcine/Pf 5,000 Unit/0.5 Ml Syringe) 5,000 unit SQ Q12HR [facility] Last Admin: 05/17/21 08:53 Dose: 5,000 unit Documented by: Sodium Chloride (Saline 0.9%) 1,000 mls @ 50 mls/hr IV .Q20H [facility] Last Admin: 05/17/21 12:39 Dose: Not Given Documented by: Piperacillin Sod/Tazobactam (Sod 3.375 gm/ Sodium Chloride) 100 mls @ 25 mls/hr IVPB Q8HR [facility]; Protocol Last Admin: 05/17/21 16:09 Dose: 25 mls/hr Documented by: Vancomycin HCl 1,000 mg/ (Sodium Chloride) 250 mls @ 125 mls/hr IVPB Q8HR [facility] Last Admin: 05/17/21 16:09 Dose: 125 mls/hr Documented by: Insulin Aspart (Insulin Aspart (Novolog) 100 Unit/Ml Vial) 0 unit SQ ACHS [facility]; Protocol Last Admin: 05/17/21 16:51 Dose: 8 unit Documented by: Insulin Detemir (Insulin Detemir (Levemir) 100 Unit/Ml Syr) 10 unit SQ HS [facility] Last Admin: 05/16/21 21:16 Dose: 10 unit Documented by: Magnesium Oxide (Magnesium Oxide 400 Mg Tab) 400 mg PO DAILY [facility] Last Admin: 05/17/21 08:54 Dose: 400 mg Documented by: Methylprednisolone Sodium Succinate (Methylprednisolone Sod Succi 125 Mg/2 Ml Vial) 60 mg IV Q6HR [facility] Last Admin: 05/17/21 18:25 Dose: 60 mg Documented by: Miscellaneous Information (Vancomycin Trough Due 1 Each Misc) 0 each MISCELLANE DIRECTED ONE Stop: 05/18/21 07:01 Miscellaneous Information (Potassium Replacement Protocol 1 Each Misc) 1 each MISCELLANE DAILY PRN; Protocol PRN Reason: Per Protocol Naloxone HCl (Naloxone 0.4 Mg/Ml 1 Ml Vial) 0.2 mg IV Q2M PRN PRN Reason: Opioid Reversal Olanzapine (Olanzapine 2.5 Mg Tab) 2.5 mg PO DAILY [facility] Stop: 05/21/21 23:00 Last Admin: 05/17/21 08:53 Dose: 2.5 mg Documented by: Ondansetron HCl (Ondansetron 4 Mg Tab) 4 mg PO Q4H PRN PRN Reason: Nausea Sodium Chloride (Sodium Chloride 0.65% Nasal [place] 44 Ml Btl) 2 spray NASAL QID PRN PRN Reason: Dry Nasal Passages PHYSICAL EXAMINATION: GENERAL: The patient is alert and awake, thin built, cachectic, ill-appearing. HEENT: Pupils are round and equally reacting to light. EOMI. does have scleral icterus. No conjunctival pallor. Normocephalic, atraumatic. No pharyngeal erythema. No thyromegaly. CARDIOVASCULAR: S1 and S2 muffled PULMONARY: diminished breath sounds bilaterally with some scattered rhonchi noted. ABDOMEN: soft. Non-tender on exam. Thin built. non-distended, normoactive bowel sounds. No palpable organomegaly. MUSCULOSKELETAL: No joint swelling or deformity. EXTREMITIES: No cyanosis, clubbing, or pedal edema. NEUROLOGICAL: Gross neurological examination did not reveal any focal deficits. Diffuse weakness SKIN: No rashes. Assessment: Acute delirium Fever, sepsis, present on admission LLL pneumonia elevated d-dimer with no evidence of PE on CT Acute hypoxic respiratory failure possibly secondary to stage IV lung carcinoma, requiring BIPAP and now on Airvo 60/85 Severe Gait dysfunction Generalized weakness Hyponatremia, improved Pancytopenia Small cell lung carcinoma, receiving chemotherapy treatments Underlying COPD with extensive tobacco and cigar use history GI prophylaxis DVT prophylaxis Full code Plan: Recommend to continue with current medications and symptomatic treatment. Multiple medical consultations including neurology, nephrology, oncology following. Pulmonary also following and continued in the ICU on airvo 60/85. Wean FI02 as tolerated. Vancomycin and zosyn continued. Infectious disease following as well. Sodium stable and continues on fluid restrictions. PT/OT following and continues to be weak. Repeat labs ordered for am. Due to multiple complex medical issues, overall prognosis is extremely guarded. The impression and plan of care has been dictated by Keren Dickson, nurse practitioner as directed. Dr. Edith MD I have performed a history and examination and MDM of this patient, discussed the same with the dictator, and agree with the dictator's assessment and plan as written ,documented as a scribe. Based on total visit time, I have performed more than 50% of the visit. Objective - Vital Signs Vital signs: Vital Signs Temp 98.5 F 05/17/21 08:00 Pulse 82 05/17/21 09:00 Resp 18 05/17/21 09:00 BP 145/78 05/17/21 09:00 Pulse Ox 100 05/17/21 09:00 Intake & Output 05/16/21 05/17/21 05/17/21 18:59 06:59 18:59 Intake Total 1700 1350 680 Output Total 350 575 0 Balance 1350 775 680 Weight 58.9 kg Intake: IV 1200 1350 560 Piperacillin-Tazobactam 3 100 100 .375 gm In Sodium Chloride 0.9% 100 ml @ 25 mls/hr IVPB Q8HR [facility] Rx# :[id number] Potassium Chloride IVPB 100 Sodium Chloride 0.9% 1, 1200 1000 110 000 ml @ 100 mls/hr IV . Q10H [facility] Rx#:[id number] Vancomycin 1,000 mg In 250 250 Sodium Chloride 0.9% 250 ml @ 125 mls/hr IVPB Q8HR [facility] Rx#:[id number] Oral 500 120 Output: Urine 350 575 0 Other: Voiding Method Incontinent Incontinent - Labs CBC & Chem 7: 05/17/21 05:26 05/17/21 10:51 Labs: Abnormal Lab Results - Last 24 Hours (Table) 05/16/21 05/16/21 05/16/21 Range/Units 11:51 16:39 21:13 WBC (3.8-10.6) k/uL RBC (4.30-5.90) m/uL Hgb (13.0-17.5) gm/dL Hct (39.0-53.0) % RDW (11.5-15.5) % Blast Cells % % Neutrophils # (Manual) (1.3-7.7) k/uL Metamyelocytes # (Man) (0) k/uL Myelocytes # (Manual) (0) k/uL Promyelocytes # (Man) (0) k/uL Blast Cells # (Man) (0) k/uL Nucleated RBCs (0-0) /100 WBC Sodium (137-145) mmol/L Carbon Dioxide (22-30) mmol/L Creatinine (0.66-1.25) mg/dL Glucose (74-99) mg/dL POC Glucose (mg/dL) 233 H 230 H 146 H (75-99) mg/dL Calcium (8.4-10.2) mg/dL 05/17/21 05/17/21 05/17/21 Range/Units 05:26 05:26 06:39 WBC 17.5 H (3.8-10.6) k/uL RBC 2.37 L (4.30-5.90) m/uL Hgb 7.4 L (13.0-17.5) gm/dL Hct 22.3 L (39.0-53.0) % RDW 16.5 H (11.5-15.5) % Blast Cells % 4 H* % Neutrophils # (Manual) 10.10 H (1.3-7.7) k/uL Metamyelocytes # (Man) 1.23 H (0) k/uL Myelocytes # (Manual) 1.40 H (0) k/uL Promyelocytes # (Man) 0.53 H (0) k/uL Blast Cells # (Man) 0.70 H (0) k/uL Nucleated RBCs 1 H (0-0) /100 WBC Sodium 134 L (137-145) mmol/L Carbon Dioxide 32 H (22-30) mmol/L Creatinine 0.41 L (0.66-1.25) mg/dL Glucose 131 H (74-99) mg/dL POC Glucose (mg/dL) 152 H (75-99) mg/dL Calcium 7.4 L (8.4-10.2) mg/dL
[2021-05-18] MEDS: methylPREDNISolone SOD SUCCI 125 MG/2 ML VIAL IV SCH ×4 (00:10→18:17)
[2021-05-18] MEDS: PIPERACILLIN-TAZOBACTAM 3.375 GM in SODIUM CHLORIDE 0.9% 100 ML IVPB SCH ×3 (00:13→16:03)
[2021-05-18] MEDS: VANCOMYCIN 1,000 MG in SODIUM CHLORIDE 0.9% 250 ML IVPB SCH ×3 (00:14→15:59)
[2021-05-18] MEDS: IPRATROPIUM-ALBUTEROL 3 ML NEB INHALATION SCH ×6 (01:11→21:26)
[2021-05-18 06:14] LABS: Glucose,Whole Blood 119 mg/dL (75-99)
--- NOTE | 2021-05-18 06:18 | XR ---
EXAMINATION TYPE: XR chest 1V portable DATE OF EXAM: 05/18/2021 CLINICAL HISTORY: Difficulty breathing and pneumonia progress study. TECHNIQUE: Single AP portable upright view of the chest is obtained. COMPARISON: Chest x-ray from 2 days earlier and older studies FINDINGS: Background chronic emphysematous change with continued multifocal and confluent left lung reticulonodular opacities. Persistent suspicious right upper lung nodule or neoplasm . The cardiac s ilhouette size remains within normal limits. Multilevel spurring in thoracic spine redemonstrated. IMPRESSION: Continued left lung diffuse edema and/or infiltrates on background chronic emphysematous change and known right upper lung neoplasm. Left lung findings minimally improved from most recent x -ray.
[2021-05-18] MEDS: INSULIN ASPART (NovoLOG) 100 UNIT/ML VIAL SQ SCH ×4 (06:35→21:22)
[2021-05-18] MEDS ORDERED: VANCOMYCIN TROUGH DUE 1 EACH MISC MISCELLANE ONE (07:00)
[2021-05-18 07:44] LABS: ALT 31 U/L (4-49); AST 45 U/L (17-59); African American GFR (CKD) >90 (>60 ml/min/1.73 sqM); Albumin 2.3 g/dL (3.5-5.0); Alkaline Phosphatase 98 U/L (38-126); Anion Gap -1 mmol/L; Blood Urea Nitrogen 21 mg/dL (9-20); Calcium 7.9 mg/dL (8.4-10.2); Carbon Dioxide 33 mmol/L (22-30); Chloride 102 mmol/L (98-107); Glucose 106 mg/dL (74-99); Magnesium 2.1 mg/dL (1.6-2.3); Non-African American GFR(CKD) >90 (>60 ml/min/1.73 sqM); Potassium 3.8 mmol/L (3.5-5.1); Sodium 134 mmol/L (137-145); Total Bilirubin 0.5 mg/dL (0.2-1.3); Total Protein 5.1 g/dL (6.3-8.2)
[2021-05-18 07:54] LABS: Anisocytosis Slight; HCT 24.7 % (39.0-53.0); HGB 8.2 gm/dL (13.0-17.5); MCHC 33.1 g/dL (31.0-37.0); MCV 93.5 fL (80.0-100.0); Mean Platelet Volume 8.1; Platelet Count 578 k/uL (150-450); Poikilocytosis Slight; RBC 2.64 m/uL (4.30-5.90); RDW 17.4 % (11.5-15.5)
[2021-05-18] MEDS: OLANZapine 2.5 MG TAB PO SCH (08:43)
[2021-05-18] MEDS: FOLIC ACID 1 MG TAB PO SCH (08:43)
[2021-05-18] MEDS: MAGNESIUM OXIDE 400 MG TAB PO SCH (08:43)
[2021-05-18] MEDS: HEPARIN SODIUM,PORCINE/PF 5,000 UNIT/0.5 ML SYRINGE SQ SCH ×2 (08:43→21:23)
[2021-05-18] MEDS: SODIUM CHLORIDE 0.9% 1,000 ML IV SCH (08:44)
[2021-05-18] MEDS: PANTOPRAZOLE 40 MG TABLET PO SCH (09:34)
[2021-05-18] MEDS ORDERED: POTASSIUM CHLORIDE ER 20 MEQ TAB.ER PO SCH (10:00)
--- NOTE | 2021-05-18 11:10 | P.PN ---
Subjective Progress Note Date: 05/18/21 This is a 68-year-old male patient is known to me. 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 I establish his diagnosis through bronchoscopy and endobronchial ultrasound with no fine-needle aspirate. The patient also was having issues with hyponatremia with a sodium was dropping consistent with underlying SIADH. He was in the hospital on 05/01/2021 after the had a sodium level 113 and the patient had a witnessed seizure. He was in the intensive care unit. CAT scan of the brain was completed and it showed no evidence of any NEUROLOGY TECHNOLOGIST metastases. His chest x-ray was still showing a right hilar mass and the patient was subjected to fluid restriction, hypertonic saline at patient was discharged home to be readmitted within 48 hours because of altered mentation. The patient was accordingly admitted again to the hospital. The patient was found to be febrile and the patient was treated for neutropenic fever. Noted the patient has already received a first session of systemic chemotherapy on 04/28/2021 and he completed that on 04/30/2021. MRI of the brain with and without contrast done on 03/27/2021 showed moderate atrophy. No evidence of any metastases. For now, the patient is on the oncology floor. He is being followed up by oncology, neurology and nephrology. The patient had a temperature of 102.6 and initially the patient was covered with a combination of antibiotics including cefepime and vancomycin. Subsequently, infectious disease discontinued the vancomycin and the patient is only on IV cefepime for now.. MRI of the lumbosacral spine showed degenerative disc disease and facet arthropathy and some nonspecific enhancing lumbosacral nerves that may be vascular but it is indeterminate. Note that the patient's fever has broken the patient has been afebrile over the past 24 hours. Nevertheless, he is slightly tachycardic. His white cell count during this current admission was as low as 1.2 and currently is up to 7.6. Hemoglobin is at 8.5. Platelet count is at 95. His d-dimer was at 19.6. BUN is at 14 with a creatinine of 0.3, and the sodium level of 133. The blood cultures been negative. The urine culture has been negative. The patient was given zarxio The patient is seen today 05/12/2021 in follow-up on the regular medical floor. He is currently resting in bed. Awake and alert in no acute distress. More oriented today compared to yesterday. He is maintaining O2 saturation in the low 90s on 6 L high flow nasal cannula. He's been afebrile. Hemodynamically stable. Dopplers of the lower extremities negative for DVT. CT angiogram ruled out pulmonary embolism. There is extensive pulmonary infiltrates. Massive mediastinal bronchial adenopathy consistent with tumor. Pulmonary infiltrates significantly increased compared to recent PET scan on 04/16/2021. Could represent lymphangitic metastatic disease in the left lung. Right upper lobe masslike infiltrate without change. MRI of the cervical spine revealed stable appearance of the cervical spine with reversal of the normal cervical lordosis, disc desiccation with disc bulging and multilevel central stenosis. No enhancing lesions of the cervical spine. Right supra-clavicular adenopathy. Blood cultures reveal no growth to date. Urine culture no growth. D-dimer 19.6. Sodium 134. Potassium 3.7. Bicarb 24. BUN 15. Creatinine 0.4. In fluenza screen negative. RSV negative. COVID-19 screen negative. He is continued on heparin for DVT prophylaxis. Antibiotics in the form of cefepime. Remains on dexamethasone 1 mg daily. The patient is seen today 05/13/2021 in follow-up on the regular medical floor. He is resting comfortably in bed. Awake and alert in no acute distress. More oriented today compared to yesterday. He denies any worsening shortness of breath, cough or congestion. The cultures reveal no growth. Urine culture revealed no growth. Follow-up blood cultures revealed no growth. White count 17.7. Hemoglobin 8.8. Platelets 152. Sodium 137. Potassium 3.5. BUN 17. Creatinine 0.3. He is continued on cefepime, dexamethasone. Heparin for DVT prophylaxis. The patient is seen today 05/14/2021 in follow-up on the regular medical floor. He is currently resting in bed. Awake and alert. Some issues with oxygen desaturations he was found with his oxygen off at one point with O2 saturation at 56%. He is currently at 92% on 6 L high flow nasal cannula. Chest x-ray reveals continued worsening left lung diffuse edema/infiltrates. Persistent right upper lobe lung nodule. Blood cultures revealing no growth. Urine culture no growth. Follow-up blood culture no growth. White count 22.7. Hemoglobin 8.7. Sodium 134. Potassium 3.6. Creatinine 0.3. Urine osmolality 960. He is continued on cefepime. The patient is seen today 05/18/2021 in follow-up in the intensive care unit. He is currently resting fairly comfortably in bed. Awake and alert in no acute distress. He remains on AirVo high flow oxygen at 60 L and 70% FiO2. Normal saline at 50 MLS per hour. No worsening shortness of breath, cough or congestion. Chest x-ray continues to show left lung diffuse edema/infiltrates on background chronic emphysema. Known right upper lung neoplasm. Left lung findings minimally improved. Blood cultures revealed no growth. Urine culture reveals no growth. White count 24.2. Hemoglobin 8.2. Platelets 578. Sodium 134. Potassium 3.8. BUN 21. Creatinine 0.4. He is continued on DuoNeb inhalations, IV Solu-Medrol, vancomycin and Zosyn. Objective - Vital Signs Vital signs: Vital Signs Temp 98.1 F 05/18/21 08:00 Pulse 81 05/18/21 10:00 Resp 22 05/18/21 09:00 BP 150/90 05/18/21 10:00 Pulse Ox 100 05/18/21 10:00 Intake & Output 05/17/21 05/18/21 05/18/21 18:59 06:59 18:59 Intake Total 1720 950 550 Output Total 350 1450 Balance 1370 -500 550 Weight 65.3 kg Intake: IV 1160 950 450 Piperacillin-Tazobactam 3 200 100 100 .375 gm In Sodium Chloride 0.9% 100 ml @ 25 mls/hr IVPB Q8HR SUNG Rx# :[id number] Potassium Chloride IVPB 100 Sodium Chloride 0.9% 1, 360 600 100 000 ml @ 50 mls/hr IV . Q20H SUNG Rx#:[id number] Vancomycin 1,000 mg In 500 250 250 Sodium Chloride 0.9% 250 ml @ 125 mls/hr IVPB Q8HR SUNG Rx#:[id number] Intake, IV Titration 100 Amount Potassium Chloride 10 meq 100 In Sodium Chloride 0.9% 100 ml @ 105 mls/hr IVPB Q1H SUNG Rx#:[id number] Oral 460 100 Output: Urine 350 1450 Other: Voiding Method External Catheter External Catheter External Catheter # Voids 0 0 # Bowel Movements 1 - Exam GENERAL EXAM: Alert, pleasant, frail 70-year-old male patient, on AirVo high flow oxygen at 60 L and 70% FiO2, in no acute distress HEAD: Normocephalic/atraumatic. EYES: Normal reaction of pupils, equal size. Conjunctiva pink, sclera white. NOSE: Clear with pink turbinates. THROAT: No erythema or exudates. NECK: No masses, no JVD, no thyroid enlargement, no adenopathy. CHEST: No chest wall deformity. Symmetrical expansion. LUNGS: Equal air entry with bilateral scattered rhonchi CVS: Regular rate and rhythm, normal S1 and S2, no gallops, no murmurs, no rubs ABDOMEN: Soft, nontender. No hepatosplenomegaly, normal bowel sounds, no guarding or rigidity. EXTREMITIES: No clubbing, no edema, no cyanosis, 2+ pulses and upper and lower extremities. MUSCULOSKELETAL: Muscle strength and tone normal. SPINE: No scoliosis or deformity SKIN: No rashes CENTRAL NERVOUS SYSTEM: Alert and occasionally confused. No focal deficits, tone is normal in all 4 extremities. No neck stiffness PSYCHIATRIC: Alert and oriented -3. Appropriate affect. Intact judgment and insight. - Labs CBC & Chem 7: 05/18/21 06:46 05/18/21 06:46 Labs: Abnormal Lab Results - Last 24 Hours (Table) 05/14/21 05/17/21 05/17/21 Range/Units 06:45 10:51 12:12 WBC (3.8-10.6) k/uL RBC (4.30-5.90) m/uL Hgb (13.0-17.5) gm/dL Hct (39.0-53.0) % RDW (11.5-15.5) % Plt Count (150-450) k/uL Sodium (137-145) mmol/L Potassium 3.3 L (3.5-5.1) mmol/L Carbon Dioxide (22-30) mmol/L BUN (9-20) mg/dL Creatinine (0.66-1.25) mg/dL Glucose (74-99) mg/dL POC Glucose (mg/dL) 178 H (75-99) mg/dL Calcium (8.4-10.2) mg/dL Total Protein (6.3-8.2) g/dL Albumin (3.5-5.0) g/dL Procalcitonin 0.15 H (0.02-0.09) ng/mL 05/17/21 05/17/21 05/18/21 Range/Units 16:48 19:54 06:12 WBC (3.8-10.6) k/uL RBC (4.30-5.90) m/uL Hgb (13.0-17.5) gm/dL Hct (39.0-53.0) % RDW (11.5-15.5) % Plt Count (150-450) k/uL Sodium (137-145) mmol/L Potassium (3.5-5.1) mmol/L Carbon Dioxide (22-30) mmol/L BUN (9-20) mg/dL Creatinine (0.66-1.25) mg/dL Glucose (74-99) mg/dL POC Glucose (mg/dL) 240 H 159 H 119 H (75-99) mg/dL Calcium (8.4-10.2) mg/dL Total Protein (6.3-8.2) g/dL Albumin (3.5-5.0) g/dL Procalcitonin (0.02-0.09) ng/mL 05/18/21 05/18/21 Range/Units 06:46 06:46 WBC 24.2 H (3.8-10.6) k/uL RBC 2.64 L (4.30-5.90) m/uL Hgb 8.2 L (13.0-17.5) gm/dL Hct 24.7 L (39.0-53.0) % RDW 17.4 H (11.5-15.5) % Plt Count 578 H (150-450) k/uL Sodium 134 L (137-145) mmol/L Potassium (3.5-5.1) mmol/L Carbon Dioxide 33 H (22-30) mmol/L BUN 21 H (9-20) mg/dL Creatinine 0.40 L (0.66-1.25) mg/dL Glucose 106 H (74-99) mg/dL POC Glucose (mg/dL) (75-99) mg/dL Calcium 7.9 L (8.4-10.2) mg/dL Total Protein 5.1 L (6.3-8.2) g/dL Albumin 2.3 L (3.5-5.0) g/dL Procalcitonin (0.02-0.09) ng/mL Assessment and Plan Assessment: 1 small cell lung cancer, early SVC syndrome, status post first cycle of systemic chemotherapy using carboplatin and [employer]INEER-16 and Tecentriq 2 neutropenic fever, improving currently afebrile 3 acute febrile illness, Suspect secondary to underlying pneumonia more so on the left lung him a currently on cefepime 4 acute hypoxic respiratory failure secondary to sepsis, underlying lung cancer him a currently on AirVo high flow oxygen 5 episodic SIDH, sodium level is adequate for now 6 altered mentation secondary to sepsis 7 hypertension 8 osteoarthritis 9 latent TB back in 1996 Plan: The patient was seen and evaluated Chest x-ray and labs reviewed Continued on AirVo high flow oxygen at 60 L and 70% FiO2 Titrate down the FiO2 as tolerated Transfer out of the ICU today We will continue to follow I have personally seen and examined the patient, performed the documentation and the assessment and plan as written. Number of minutes spent on the visit: 10.
[2021-05-18 11:51] LABS: Band Neutrophils % 6 %; Metamyelocytes % 5 %; Myelocytes % 6 %; Neutrophils % (M) 70 %; Nucleated Red Blood Cells 1 /100 WBC (0-0); Total Cells Counted 200
[2021-05-18 11:52] LABS: Lymphocytes # (M) 2.64 k/uL (1.0-4.8); Monocytes # (M) 0.96 k/uL (0-1.0); Myelocytes # (M) 1.44 k/uL (0)
[2021-05-18 11:55] LABS: Spherocytes Present
[2021-05-18 11:55] LABS: Glucose,Whole Blood 205 mg/dL (75-99)
--- NOTE | 2021-05-18 12:51 | P.PN ---
Subjective Progress Note Date: 05/18/21 Principal diagnosis: Acute delirium, SCLC In f/u today pt looks the best that he has since this admission. He was able to speak without shortness of breath, he was alert and oriented, no confusion, he is not currently in any pain. Objective - Vital Signs Vital signs: Vital Signs Temp 98.1 F 05/18/21 08:00 Pulse 99 05/18/21 12:03 Resp 22 05/18/21 09:00 BP 150/90 05/18/21 10:00 Pulse Ox 98 05/18/21 11:51 Intake & Output 05/17/21 05/18/21 05/18/21 18:59 06:59 18:59 Intake Total 1720 950 720 Output Total 350 1450 Balance 1370 -500 720 Weight 65.3 kg Intake: IV 1160 950 500 Piperacillin-Tazobactam 3 200 100 100 .375 gm In Sodium Chloride 0.9% 100 ml @ 25 mls/hr IVPB Q8HR SUNG Rx# :[id number] Potassium Chloride IVPB 100 Sodium Chloride 0.9% 1, 360 600 150 000 ml @ 50 mls/hr IV . Q20H SUNG Rx#:[id number] Vancomycin 1,000 mg In 500 250 250 Sodium Chloride 0.9% 250 ml @ 125 mls/hr IVPB Q8HR SUNG Rx#:[id number] Intake, IV Titration 100 Amount Potassium Chloride 10 meq 100 In Sodium Chloride 0.9% 100 ml @ 105 mls/hr IVPB Q1H [facility]G Rx#:[id number] Oral 460 220 Output: Urine 350 1450 Other: Voiding Method External Catheter External Catheter External Catheter # Voids 0 0 # Bowel Movements 1 - Constitutional General appearance: Present: cooperative, no acute distress, thin - EENT Eyes: Present: anicteric sclerae, EOMI ENT: Present: hearing grossly normal - Respiratory Respiratory: bilateral: CTA, diminished - Cardiovascular Rhythm: regular Heart sounds: normal: S1, S2 Abnormal Heart Sounds: Absent: systolic murmur, diastolic murmur, rub, S3 Ga llop, S4 Gallop, click, other - Peripheral edema leg Peripheral Edema: bilateral: None - Gastrointestinal General gastrointestinal: Present: normal bowel sounds, soft. Absent: absent bowel sounds, decreased bowel sounds, distended, hepatomegaly, hyperactive bowel sounds, organomegaly, rigid, scaphoid, splenomegaly, tenderness, umbilical hernia, ventral hernia - Neurologic Neurologic: Present: CNII-XII intact (grossly) - Musculoskeletal Musculoskeletal: Present: generalized weakness - Psychiatric Psychiatric: Present: A&O x's 3, appropriate affect, intact judgment & insight - Labs CBC & Chem 7: 05/18/21 06:46 05/18/21 06:46 Labs: Abnormal Lab Results - Last 24 Hours (Table) 05/14/21 05/17/21 05/17/21 Range/Units 06:45 16:48 19:54 WBC (3.8-10.6) k/uL RBC (4.30-5.90) m/uL Hgb (13.0-17.5) gm/dL Hct (39.0-53.0) % RDW (11.5-15.5) % Plt Count (150-450) k/uL Neutrophils # (Manual) (1.3-7.7) k/uL Metamyelocytes # (Man) (0) k/uL Myelocytes # (Manual) (0) k/uL Nucleated RBCs (0-0) /100 WBC Sodium (137-145) mmol/L Carbon Dioxide (22-30) mmol/L BUN (9-20) mg/dL Creatinine (0.66-1.25) mg/dL Glucose (74-99) mg/dL POC Glucose (mg/dL) 240 H 159 H (75-99) mg/dL Calcium (8.4-10.2) mg/dL Total Protein (6.3-8.2) g/dL Albumin (3.5-5.0) g/dL Procalcitonin 0.15 H (0.02-0.09) ng/mL 05/18/21 05/18/21 05/18/21 Range/Units 06:12 06:46 06:46 WBC 24.0 H (3.8-10.6) k/uL RBC 2.64 L (4.30-5.90) m/uL Hgb 8.2 L (13.0-17.5) gm/dL Hct 24.7 L (39.0-53.0) % RDW 17.4 H (11.5-15.5) % Plt Count 578 H (150-450) k/uL Neutrophils # (Manual) 18.20 H (1.3-7.7) k/uL Metamyelocytes # (Man) 1.20 H (0) k/uL Myelocytes # (Manual) 1.44 H (0) k/uL Nucleated RBCs 1 H (0-0) /100 WBC Sodium 134 L (137-145) mmol/L Carbon Dioxide 33 H (22-30) mmol/L BUN 21 H (9-20) mg/dL Creatinine 0.40 L (0.66-1.25) mg/dL Glucose 106 H (74-99) mg/dL POC Glucose (mg/dL) 119 H (75-99) mg/dL Calcium 7.9 L (8.4-10.2) mg/dL Total Protein 5.1 L (6.3-8.2) g/dL Albumin 2.3 L (3.5-5.0) g/dL Procalcitonin (0.02-0.09) ng/mL 05/18/21 Range/Units 11:54 WBC (3.8-10.6) k/uL RBC (4.30-5.90) m/uL Hgb (13.0-17.5) gm/dL Hct (39.0-53.0) % RDW (11.5-15.5) % Plt Count (150-450) k/uL Neutrophils # (Manual) (1.3-7.7) k/uL Metamyelocytes # (Man) (0) k/uL Myelocytes # (Manual) (0) k/uL Nucleated RBCs (0-0) /100 WBC Sodium (137-145) mmol/L Carbon Dioxide (22-30) mmol/L BUN (9-20) mg/dL Creatinine (0.66-1.25) mg/dL Glucose (74-99) mg/dL POC Glucose (mg/dL) 205 H (75-99) mg/dL Calcium (8.4-10.2) mg/dL Total Protein (6.3-8.2) g/dL Albumin (3.5-5.0) g/dL Procalcitonin (0.02-0.09) ng/mL - Imaging and Cardiology Chest x-ray: report reviewed (minimal improvement) Assessment and Plan (1) Acute delirium Narrative/Plan: Pt is the best he has been since admit. No symptoms today CT, MRI brain both neg. Current Visit: Yes Status: Acute Priority: High Code(s): R41.0 - DISORIENTATION, UNSPECIFIED SNOMED Code(s): 3352787 (2) Pancytopenia Narrative/Plan: WBC and ANC increased now-responding to infection and recovery from treatment, on steroids. Cont to monitor Plt now increased-reactive Hgb stable, starting to slightly improve Pt recovering from treatment Current Visit: Yes Status: Acute Priority: Medium Code(s): D61.818 - OTHER PANCYTOPENIA SNOMED Code(s): 910304357 (3) SIADH (syndrome of inappropriate ADH production) Narrative/Plan: 2/2 small cell lung cancer. Na+ stable for pt, almost normal today Current Visit: No Status: Acute Priority: Medium Code(s): E22.2 - SYNDROME OF INAPPROPRIATE SECRETION OF ANTIDIURETIC HORMONE SNOMED Code(s): 29219989 (4) Small cell lung cancer Narrative/Plan: S/P 1st cycle of carbo/ADMINISTRATIVE TECH/tecentriq. Treating for a suspected pneumonia. It has been discussed among the teams, suspect pneumonia vs disease Treatment held for now Current Visit: Yes Status: Acute Priority: High Code(s): C34.90 - MALIGNANT NEOPLASM OF UNSP PART OF UNSP BRONCHUS OR LUNG SNOMED Code(s): 228909308
--- NOTE | 2021-05-18 15:40 | P.PN ---
Subjective Progress Note Date: 05/18/21 This is a pleasant 70-year-old male who was recently admitted with altered mental status and per the acute delirium. Patient was recently just discharged for severe hyponatremia. Patient was evaluated by physical therapy recommending subacute rehab although patient refused at that time and wanted to go home and Homecare was being arranged. Per patient continued to be confused and more altered and so was brought back to the hospital for further evaluation. Neurology and oncology been consulted and pending. Will also consult nephrology as patient sodium continues to be low and is currently 127. Patient does have an extensive past medical history of hypertension, osteoarthritis, EtOH abuse, and also small cell lung carcinoma and is currently receiving chemo immunotherapy treatments. Patient has been on high-dose steroids with a taper of Decadron per oncology services. Patient also recently had further workup with a bronchoscopy with biopsy in March that confirmed the small cell lung carcinoma and patient also underwent PET scan and findings were extensive stage IV disease. On admission to the ER labs were found to be a WBC of 1.3, hemoglobin 10.0, platelets were 100, sodium was 126, potassium 4.7, BUN 23, creatinine 0.33, magnesium 1.8, urinalysis is negative. Patient had a CT of the brain without contrast showing no evidence of intracranial hemorrhage mass effect or midline shift the white matter is grossly preserved and there is no acute intracranial abnormality noted. Patient was admitted for further evaluation and will also have PT/OT therapy evaluate the patient and will consult case management/director of social work to evaluate for ECF. Consultations currently pending. 05/10/2021 Patient is seen and evaluated in follow-up today currently sitting up in the chair. Patient being followed closely by nephrology. Patient continues with confusion at times and recommend PT/OT evaluation for possible ECF. Oncology also following along with neurology and LS-spine MRI is ordered and pending at this time. Patient continues with low-grade fevers and is maintained on IV antibiotics and will continue. Infectious disease was consulted and pending. Patient received a dose of Samsca yesterday and sodium improved at 131 today and recommend continue with fluid restrictions and will repeat labs. 05/11/2021 Patient is seen in follow-up today no acute overnight issues noted. Multiple medical consultations including nephrology, oncology, neurology following. Infectious disease also following and patient is maintained on IV cefepime and vancomycin has been discontinued. Patient had been having low-grade temps with a T-max of 102.6 and is currently afebrile for the last 24 hours now. Sputum culture along with influenza and RSV testing currently pending. This was discussed with nursing staff and the cultures will be obtained. Patient underwent MRI of the LS spine and degenerative disc disease with facet arthropathy noted and also there were 2 nonspecific enhancing lumbosacral nerves that are negative and there is no suspicious clumping or nodular enhancement images suggest neoplastic involvement in the lumbosacral spine canal. Neurology following recommending outpatient follow-up with further EMG testing and studies is necessary. Sodium improved at 133 today and potassium found to be low at 3.2 and will replace magnesium is 1.8 today. Patient requiring 4 L of oxygen and states he does not wear oxygen in the outpatient setting and will consult pulmonary which is pending at this time. Patient denies chest pain or shortness of breath. Patient reported that he was told his oxygen saturation is low and placed on oxygen. 05/12/2021 Patient is seen in follow up and appears calm and in no distress. Patient is confused with periods of being appropriate. Patient has increased oxygen demand now at 6 L. D-dimer was elevated and CTA ordered with no evidence of PE. RSV, covid, influenza are negative. Patient is afebrile. Patient to have mri of the cervical spine today with neurology following. Possible pneumonia or viral illne ss being considered. 05/13/2021 Patient is seen and evaluated in follow-up today continues to be closely monitored with multiple medical consultations following. Patient more alert today although continues with periods of confusion. Patient currently sitting up in the chair and continues on 6 L via nasal cannula. WBC is elevated at 17.7 today possible component of recent chemotherapy versus dexamethasone use as patient is now afebrile. Physical therapy working with the patient daily patie nt continues to be weak requiring assistance although also continues to refuse rehab on discharge. Patient denying any chest pain or shortness of breath. Patient is afebrile. No report of nausea or vomiting noted and patient is tolerating diet. PT/OT to continue to follow daily. 05/14/2021 Patient is evaluated sitting up in bed and continues with low oxygen saturations. When asking the patient about shortness of breath, he denies, but his pulse ox readings continue to drop. Patient was found with his oxygen tubing off and oxygen saturation quickly dropped into the 50's and was placed back on his oxygen and recovered to 90% on 6L via NC. Patient is afebrile, WBC trending up today and is 22.76. Hemoglobin is 8.7. Sodium is 134. Sputum cultures pending. Patient was on cefepime. ID following. Chest xray today shows continuing left lung diffuse edema and or infiltrate. Pulmonary following. 05/15/2021 Patient is currently transferred to MICU. Admitted to hospital due to extensive left lung pneumonia, neutropenic fever and immunosuppression on chemotherapy due to lung cancer. Overnight patient had worsening breathing status and hypoxic. Patient was placed on BiPAP and was transferred to MICU. Currently continued on vancomycin and Zosyn. Transition to nasal cannula oxygen high flow with 50 L and FiO2 67%. Laboratory data showed WBC improved to 21.1 hemoglobin 9.0 and platelets 226 Sodium 130 potassium 3.5 chloride 98 bicarb is 32 BUN 21 creatinine 0.41 and calcium 7.4 05/16/2021 Patient is in the MICU. Currently requiring high flow oxygen Airvo at 50 L and FiO2 65%. Awake and alert. No complaints of chest pain. Continue to be on antibiotics in the form of vancomycin and Zosyn for left lower lobe pneumonia. Patient also has right hilar small cell lung cancer. Metastatic. Laboratory data showed WBC 20.3 hemoglobin 8.1 and platelets 330 sodium 131 potassium 4.2 chloride 100 bicarb is 31 BUN 49 creatinine 0.40 and blood sugar is 165 calcium 7.3. Patient has been afebrile. No nausea or vomiting or diarrhea. Tolerating oral diet. No cough or sputum production. No chest pain. Pulmonary and ID is on board. 05/17/2021 Patient is seen in follow up and continues in the ICU with pulmonary, oncology, and ID following. Patient is continued on Zosyn and Vanco and will continue. WBC trending down and is 17 today. Patient is afebrile. Patient continues on high f low airvo with settings of 60/85 abd continue to wean FI02 as tolerated. Encouraged increased activity as tolerated and continue with PT/OT. Oncology following and current treatment on hold until respiratory status improves. Patient also continued on IV steroids and breathing inhalational treatments and will continue. 05/18/2021 Patient is seen and evaluated in follow-up continues to be closely monitored in the ICU with multiple medical consultations following. WBC elevated at 24.2 hemoglobin is stable at 8.2. Sodium is stable at 134 with nephrology following. Recommend continue with fluid restrictions. Patient continues on high flow airvo 60/60 and slowly weaning as tolerated. Patient to continue with antibiotic therapy with infectious disease following closely as well. Per michael ng staff patient was having some urinary retention and straight catheter over 1100 output. Continue to monitor and bladder scan as needed and is continuing to retain may insert indwelling Panotja catheter. Oncology, pulmonary, infectious disease following. Chest x-ray today shows continued left lung diffuse edema and/or infiltrates on background chronic emphysematous change in known right upper lung neoplasm left lung findings minimally improved from previous x-ray. Follow-up CT and MRI of the brain are negative with oncology following. Recommend holding current oncology treatment until improvement in current respiratory status. Continue to wean FiO2 as tolerated Review of systems: Constitutional: No reports of fatigue, fever, or chills Cardiovascular: No reports of chest pain or palpitations Respiratory: No reports of worsening shortness of breath and tolerating airvo GI: No reports of nausea, vomiting, or diarrhea : No reports of dysuria or retention Neurovascular: No reports of weakness or numbness All medications have been reviewed Active Medications Acetaminophen (Acetaminophen Tab 325 Mg Tab) 650 mg PO Q6HR PRN PRN Reason: Fever and/ or Pain Last Admin: 05/08/21 13:46 Dose: 650 mg Documented by: Albuterol/Ipratropium (Ipratropium-Albuterol 3 Ml Neb) 3 ml INHALATION RT-Q4H [facility] Last Admin: 05/18/21 09:02 Dose: 3 ml Documented by: Artificial Tears (Artificial Tears-Hypromellose Drops 15 Ml Btl) 1 drops BOTH EYES DAILY PRN PRN Reason: DRY EYES Folic Acid (Folic Acid 1 Mg Tab) 1 mg PO DAILY [facility] Last Admin: 05/18/21 08:43 Dose: 1 mg Documented by: Heparin Sodium (Porcine) (Heparin Sodium,Porcine/Pf 5,000 Unit/0.5 Ml Syringe) 5,000 unit SQ Q12HR [facility] Last Admin: 05/18/21 08:43 Dose: 5,000 unit Documented by: Sodium Chloride (Saline 0.9%) 1,000 mls @ 50 mls/hr IV .Q20H [facility] Last Admin: 05/18/21 08:44 Dose: 50 mls/hr Documented by: Piperacillin Sod/Tazobactam (Sod 3.375 gm/ Sodium Chloride) 100 mls @ 25 mls/hr IVPB Q8HR [facility]; Protocol Last Admin: 05/18/21 08:25 Dose: 25 mls/hr Documented by: Vancomycin HCl 1,000 mg/ (Sodium Chloride) 250 mls @ 125 mls/hr IVPB Q8HR [facility] Last Admin: 05/18/21 08:25 Dose: 125 mls/hr Documented by: Insulin Aspart (Insulin Aspart (Novolog) 100 Unit/Ml Vial) 0 unit SQ ACHS [facility]; Protocol Last Admin: 05/18/21 06:35 Dose: Not Given Documented by: Insulin Detemir (Insulin Detemir (Levemir) 100 Unit/Ml Syr) 10 unit SQ HS [facility] Last Admin: 05/17/21 20:21 Dose: 10 unit Documented by: Magnesium Oxide (Magnesium Oxide 400 Mg Tab) 400 mg PO DAILY [facility] Last Admin: 05/18/21 08:43 Dose: 400 mg Documented by: Methylprednisolone Sodium Succinate (Methylprednisolone Sod Succi 125 Mg/2 Ml Vial) 60 mg IV Q6HR [facility] Last Admin: 05/18/21 06:47 Dose: 60 mg Documented by: Miscellaneous Information (Potassium Replacement Protocol 1 Each Misc) 1 each MISCELLANE DAILY PRN; Protocol PRN Reason: Per Protocol Naloxone HCl (Naloxone 0.4 Mg/Ml 1 Ml Vial) 0.2 mg IV Q2M PRN PRN Reason: Opioid Reversal Olanzapine (Olanzapine 2.5 Mg Tab) 2.5 mg PO DAILY [facility] Stop: 05/21/21 23:00 Last Admin: 05/18/21 08:43 Dose: 2.5 mg Documented by: Ondansetron HCl (Ondansetron 4 Mg Tab) 4 mg PO Q4H PRN PRN Reason: Nausea Last Admin: 05/18/21 05:18 Dose: 4 mg Documented by: Pantoprazole Sodium (Pantoprazole 40 Mg Tablet) 40 mg PO AC-BRKFST [facility] Sodium Chloride (Sodium Chloride 0.65% Nasal [place] 44 Ml Btl) 2 spray NASAL QID PRN PRN Reason: Dry Nasal Passages PHYSICAL EXAMINATION: GENERAL: The patient is alert and awake, thin built, cachectic, ill-appearing. HEENT: Pupils are round and equally reacting to light. EOMI. does have scleral icterus. No conjunctival pallor. Normocephalic, atraumatic. No pharyngeal erythema. No thyromegaly. CARDIOVASCULAR: S1 and S2 muffled PULMONARY: diminished breath sounds bilaterally with some scattered rhonchi noted. ABDOMEN: soft. Non-tender on exam. Thin built. non-distended, normoactive bowel sounds. No palpable organomegaly. MUSCULOSKELETAL: No joint swelling or deformity. EXTREMITIES: No cyanosis, clubbing, or pedal edema. NEUROLOGICAL: Gross neurological examination did not reveal any focal deficits. Diffuse weakness SKIN: No rashes. Assessment: Acute delirium Fever, sepsis, present on admission LLL pneumonia elevated d-dimer with no evidence of PE on CT Acute hypoxic respiratory failure possibly secondary to stage IV lung carcinoma, requiring BIPAP and now on Airvo 60/85 Severe Gait dysfunction Generalized weakness Hyponatremia, improved Pancytopenia Small cell lung carcinoma, receiving chemotherapy treatments Underlying COPD with extensive tobacco and cigar use history GI prophylaxis DVT prophylaxis Full code Plan: Recommend to continue with current medications and symptomatic treatment. Multiple medical consultations including neurology, nephrology, oncology following. Pulmonary also following and continues on airvo 60/60. Wean FI02 as tolerated. Patient awaiting transfer out of the ICU and will return to oncology unit. Vancomycin and zosyn continued. Infectious disease following as well. Sodium stable and continues on fluid restrictions. PT/OT following and continues to be weak. Repeat labs ordered for am. Due to multiple complex medical issues, overall prognosis is extremely guarded. The impression and plan of care has been dictated by Keren Dickson, nurse practitioner as directed. Dr. Edith MD I have performed a history and examination and MDM of this patient, discussed the same with the dictator, and agree with the dictator's assessment and plan as written ,documented as a scribe. Based on total visit time, I have performed more than 50% of the visit. Objective - Vital Signs Vital signs: Vital Signs Temp 97.6 F 05/18/21 04:00 Pulse 83 05/18/21 09:12 Resp 15 05/18/21 07:00 BP 146/80 05/18/21 07:00 Pulse Ox 95 05/18/21 09:03 Intake & Output 05/17/21 05/18/21 05/18/21 18:59 06:59 18:59 Intake Total 1720 950 50 Output Total 350 1450 Balance 1370 -500 50 Weight 65.3 kg Intake: IV 1160 950 50 Piperacillin-Tazobactam 3 200 100 .375 gm In Sodium Chloride 0.9% 100 ml @ 25 mls/hr IVPB Q8HR [facility] Rx# :[id number] Potassium Chloride IVPB 100 Sodium Chloride 0.9% 1, 360 600 50 000 ml @ 50 mls/hr IV . Q20H [facility] Rx#:[id number] Vancomycin 1,000 mg In 500 250 Sodium Chloride 0.9% 250 ml @ 125 mls/hr IVPB Q8HR [facility] Rx#:[id number] Intake, IV Titration 100 Amount Potassium Chloride 10 meq 100 In Sodium Chloride 0.9% 100 ml @ 105 mls/hr IVPB Q1H [facility] Rx#:[id number] Oral 460 Output: Urine 350 1450 Other: Voiding Method External Catheter External Catheter # Voids 0 0 - Labs CBC & Chem 7: 05/18/21 06:46 05/18/21 06:46 Labs: Abnormal Lab Results - Last 24 Hours (Table) 05/14/21 05/17/21 05/17/21 Range/Units 06:45 10:51 12:12 WBC (3.8-10.6) k/uL RBC (4.30-5.90) m/uL Hgb (13.0-17.5) gm/dL Hct (39.0-53.0) % RDW (11.5-15.5) % Plt Count (150-450) k/uL Sodium (137-145) mmol/L Potassium 3.3 L (3.5-5.1) mmol/L Carbon Dioxide (22-30) mmol/L BUN (9-20) mg/dL Creatinine (0.66-1.25) mg/dL Glucose (74-99) mg/dL POC Glucose (mg/dL) 178 H (75-99) mg/dL Calcium (8.4-10.2) mg/dL Total Protein (6.3-8.2) g/dL Albumin (3.5-5.0) g/dL Procalcitonin 0.15 H (0.02-0.09) ng/mL 05/17/21 05/17/21 05/18/21 Range/Units 16:48 19:54 06:12 WBC (3.8-10.6) k/uL RBC (4.30-5.90) m/uL Hgb (13.0-17.5) gm/dL Hct (39.0-53.0) % RDW (11.5-15.5) % Plt Count (150-450) k/uL Sodium (137-145) mmol/L Potassium (3.5-5.1) mmol/L Carbon Dioxide (22-30) mmol/L BUN (9-20) mg/dL Creatinine (0.66-1.25) mg/dL Glucose (74-99) mg/dL POC Glucose (mg/dL) 240 H 159 H 119 H (75-99) mg/dL Calcium (8.4-10.2) mg/dL Total Protein (6.3-8.2) g/dL Albumin (3.5-5.0) g/dL Procalcitonin (0.02-0.09) ng/mL 05/18/21 05/18/21 Range/Units 06:46 06:46 WBC 24.2 H (3.8-10.6) k/uL RBC 2.64 L (4.30-5.90) m/uL Hgb 8.2 L (13.0-17.5) gm/dL Hct 24.7 L (39.0-53.0) % RDW 17.4 H (11.5-15.5) % Plt Count 578 H (150-450) k/uL Sodium 134 L (137-145) mmol/L Potassium (3.5-5.1) mmol/L Carbon Dioxide 33 H (22-30) mmol/L BUN 21 H (9-20) mg/dL Creatinine 0.40 L (0.66-1.25) mg/dL Glucose 106 H (74-99) mg/dL POC Glucose (mg/dL) (75-99) mg/dL Calcium 7.9 L (8.4-10.2) mg/dL Total Protein 5.1 L (6.3-8.2) g/dL Albumin 2.3 L (3.5-5.0) g/dL Procalcitonin (0.02-0.09) ng/mL
[2021-05-18 17:19] LABS: Glucose,Whole Blood 223 mg/dL (75-99)
[2021-05-18 20:06] LABS: Glucose,Whole Blood 239 mg/dL (75-99)
[2021-05-18] MEDS: INSULIN DETEMIR (LEVEMIR) 100 UNIT/ML SYR SQ SCH (21:23)
--- NOTE | 2021-05-18 23:40 | P.PN ---
Subjective Progress Note Date: 05/18/21 Principal diagnosis: Febrile neutropenia Patient is a 70 year old male with a past medical history significant for metastatic right upper lobe small cell cancer diagnosed in 04/12/2021 for the patient is currently on chemotherapy presented to hospital weakness subsequent spiking a fever and did have low white count. Patient did have a CT and a gram of the chest completed on 05/11/2021 with evidence of right upper lobe consolidation any increasing infiltrate On today's evaluation that is 05/18/2021 the patient remains to be afebrile, the patient is breathing comfortably high flow nasal cannula oxygen , patient denies chest pain he did have a cough but not bringing up any sputum , the patient denies abdominal pain and no diarrhea Objective - Vital Signs Vital signs: Vital Signs Temp 98.1 F 05/18/21 08:00 Pulse 99 05/18/21 12:03 Resp 22 05/18/21 09:00 BP 150/90 05/18/21 10:00 Pulse Ox 98 05/18/21 11:51 Intake & Output 05/17/21 05/18/21 05/18/21 18:59 06:59 18:59 Intake Total 1720 950 890 Output Total 350 1450 Balance 1370 -500 890 Weight 65.3 kg Intake: IV 1160 950 550 Piperacillin-Tazobactam 3 200 100 100 .375 gm In Sodium Chloride 0.9% 100 ml @ 25 mls/hr IVPB Q8HR [facility] Rx# :[id number] Potassium Chloride IVPB 100 Sodium Chloride 0.9% 1, 360 600 200 000 ml @ 50 mls/hr IV . Q20H [facility] Rx#:[id number] Vancomycin 1,000 mg In 500 250 250 Sodium Chloride 0.9% 250 ml @ 125 mls/hr IVPB Q8HR [facility] Rx#:[id number] Intake, IV Titration 100 Amount Potassium Chloride 10 meq 100 In Sodium Chloride 0.9% 100 ml @ 105 mls/hr IVPB Q1H [facility] Rx#:[id number] Oral 460 340 Output: Urine 350 1450 Other: Voiding Method External Catheter External Catheter External Catheter # Voids 0 0 # Bowel Movements 1 - Exam GENERAL DESCRIPTION: An elderly male lying in bed in no distress RESPIRATORY SYSTEM: Unlabored breathing , decreased breath sounds at bases HEART: S1 S2 regular rate and rhythm , ABDOMEN: Soft , no tenderness EXTREMITIES: No edema feet - Labs CBC & Chem 7: 05/18/21 06:46 05/18/21 06:46 Labs: Abnormal Lab Results - Last 24 Hours (Table) 05/14/21 05/17/21 05/17/21 Range/Units 06:45 16:48 19:54 WBC (3.8-10.6) k/uL RBC (4.30-5.90) m/uL Hgb (13.0-17.5) gm/dL Hct (39.0-53.0) % RDW (11.5-15.5) % Plt Count (150-450) k/uL Neutrophils # (Manual) (1.3-7.7) k/uL Metamyelocytes # (Man) (0) k/uL Myelocytes # (Manual) (0) k/uL Nucleated RBCs (0-0) /100 WBC Sodium (137-145) mmol/L Carbon Dioxide (22-30) mmol/L BUN (9-20) mg/dL Creatinine (0.66-1.25) mg/dL Glucose (74-99) mg/dL POC Glucose (mg/dL) 240 H 159 H (75-99) mg/dL Calcium (8.4-10.2) mg/dL Total Protein (6.3-8.2) g/dL Albumin (3.5-5.0) g/dL Procalcitonin 0.15 H (0.02-0.09) ng/mL 05/18/21 05/18/21 05/18/21 Range/Units 06:12 06:46 06:46 WBC 24.0 H (3.8-10.6) k/uL RBC 2.64 L (4.30-5.90) m/uL Hgb 8.2 L (13.0-17.5) gm/dL Hct 24.7 L (39.0-53.0) % RDW 17.4 H (11.5-15.5) % Plt Count 578 H (150-450) k/uL Neutrophils # (Manual) 18.20 H (1.3-7.7) k/uL Metamyelocytes # (Man) 1.20 H (0) k/uL Myelocytes # (Manual) 1.44 H (0) k/uL Nucleated RBCs 1 H (0-0) /100 WBC Sodium 134 L (137-145) mmol/L Carbon Dioxide 33 H (22-30) mmol/L BUN 21 H (9-20) mg/dL Creatinine 0.40 L (0.66-1.25) mg/dL Glucose 106 H (74-99) mg/dL POC Glucose (mg/dL) 119 H (75-99) mg/dL Calcium 7.9 L (8.4-10.2) mg/dL Total Protein 5.1 L (6.3-8.2) g/dL Albumin 2.3 L (3.5-5.0) g/dL Procalcitonin (0.02-0.09) ng/mL 05/18/21 Range/Units 11:54 WBC (3.8-10.6) k/uL RBC (4.30-5.90) m/uL Hgb (13.0-17.5) gm/dL Hct (39.0-53.0) % RDW (11.5-15.5) % Plt Count (150-450) k/uL Neutrophils # (Manual) (1.3-7.7) k/uL Metamyelocytes # (Man) (0) k/uL Myelocytes # (Manual) (0) k/uL Nucleated RBCs (0-0) /100 WBC Sodium (137-145) mmol/L Carbon Dioxide (22-30) mmol/L BUN (9-20) mg/dL Creatinine (0.66-1.25) mg/dL Glucose (74-99) mg/dL POC Glucose (mg/dL) 205 H (75-99) mg/dL Calcium (8.4-10.2) mg/dL Total Protein (6.3-8.2) g/dL Albumin (3.5-5.0) g/dL Procalcitonin (0.02-0.09) ng/mL Assessment and Plan (1) Fever Current Visit: Yes Status: Acute Code(s): R50.9 - FEVER, UNSPECIFIED SNOMED Code(s): 592879175 Plan: 1patient with a stage IV small cell cancer right upper lobe this patient has been started on chemotherapy presented to the hospital with some mental status changes and has developed a fever source is likely right upper lobe pneumonia as no other obvious focus of infection urine has been negative abdominal soft on clinical examination no evidence of any cellulitis or joint swelling. 2sputum culture requested and can but not collected 3patient to continue zosyn and vancomycin while monitoring his clinical course and kidney function closely, prognosis remains to be guarded Time with Patient: Less than 30
[2021-05-19] MEDS: IPRATROPIUM-ALBUTEROL 3 ML NEB INHALATION SCH ×6 (00:07→19:40)
[2021-05-19] MEDS: methylPREDNISolone SOD SUCCI 125 MG/2 ML VIAL IV SCH ×5 (00:50→23:42)
[2021-05-19] MEDS: PIPERACILLIN-TAZOBACTAM 3.375 GM in SODIUM CHLORIDE 0.9% 100 ML IVPB SCH ×4 (00:52→23:41)
[2021-05-19] MEDS: VANCOMYCIN 1,000 MG in SODIUM CHLORIDE 0.9% 250 ML IVPB SCH ×2 (00:52→08:30)
[2021-05-19] MEDS: SODIUM CHLORIDE 0.9% 1,000 ML IV SCH ×2 (05:50→23:42)
[2021-05-19 07:07] LABS: Glucose,Whole Blood 91 mg/dL (75-99)
[2021-05-19] MEDS: INSULIN ASPART (NovoLOG) 100 UNIT/ML VIAL SQ SCH ×4 (07:42→20:23)
[2021-05-19] MEDS: PANTOPRAZOLE 40 MG TABLET PO SCH (08:26)
[2021-05-19] MEDS: MAGNESIUM OXIDE 400 MG TAB PO SCH (08:26)
[2021-05-19] MEDS: FOLIC ACID 1 MG TAB PO SCH (08:26)
[2021-05-19] MEDS: HEPARIN SODIUM,PORCINE/PF 5,000 UNIT/0.5 ML SYRINGE SQ SCH ×2 (08:26→20:24)
[2021-05-19] MEDS: SODIUM CHLORIDE 0.65% NASAL SPRAY 44 ML BTL NASAL PRN ×3 (08:27→15:53)
[2021-05-19] MEDS: OLANZapine 2.5 MG TAB PO SCH (08:28)
[2021-05-19 10:45] LABS: Anisocytosis Slight; HCT 25.3 % (39.0-53.0); HGB 8.5 gm/dL (13.0-17.5); MCH 31.3 pg (25.0-35.0); MCHC 33.6 g/dL (31.0-37.0); MCV 93.2 fL (80.0-100.0); Mean Platelet Volume 7.7; Platelet Count 779 k/uL (150-450); Poikilocytosis Slight; RBC 2.72 m/uL (4.30-5.90); RDW 17.9 % (11.5-15.5); WBC 24.4 k/uL (3.8-10.6)
--- NOTE | 2021-05-19 10:46 | P.PN ---
Subjective Progress Note Date: 05/19/21 Principal diagnosis: Shortness of breath This is a 68-year-old male patient is known to me. 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 I establish his diagnosis through bronchoscopy and endobronchial ultrasound with no fine-needle aspirate. The patient also was having issues with hyponatremia with a sodium was dropping consistent with underlying SIADH. He was in the hospital on 05/01/2021 after the had a sodium level 113 and the patient had a witnessed seizure. He was in the intensive care unit. CAT scan of the brain was completed and it showed no evidence of any [employer] metastases. His chest x-ray was still showing a right hilar mass and the patient was subjected to fluid restriction, hypertonic saline at patient was discharged home to be readmitted within 48 hours because of altered mentation. The patient was accordingly admitted again to the hospital. The patient was found to be febrile and the patient was treated for neutropenic fever. Noted the patient has already received a first session of systemic chemotherapy on 04/28/2021 and he completed that on 04/30/2021. MRI of the brain with and without contrast done on 03/27/2021 showed moderate atrophy. No evidence of any metastases. For now, the patient is on the oncology floor. He is being followed up by oncology, neurology and nephrology. The patient had a t emperature of 102.6 and initially the patient was covered with a combination of antibiotics including cefepime and vancomycin. Subsequently, infectious disease discontinued the vancomycin and the patient is only on IV cefepime for now.. MRI of the lumbosacral spine showed degenerative disc disease and facet arthropathy and some nonspecific enhancing lumbosacral nerves that may be vascular but it is indeterminate. Note that the patient's fever has broken the patient has been afebrile over the past 24 hours. Nevertheless, he is slightly tachycardic. His white cell count during this current admission was as low as 1.2 and currently is up to 7.6. Hemoglobin is at 8.5. Platelet count is at 95. His d-dimer was at 19.6. BUN is at 14 with a creatinine of 0.3, and the sodium level of 133. The blood cultures been negative. The urine culture has been negative. The patient was given zarxio The patient is seen today 05/12/2021 in follow-up on the regular medical floor. He is currently resting in bed. Awake and alert in no acute distress. More oriented today compared to yesterday. He is maintaining O2 saturation in the low 90s on 6 L high flow nasal cannula. He's been afebrile. Hemodynamically stable. Dopplers of the lower extremities negative for DVT. CT angiogram ruled out pulmonary embolism. There is extensive pulmonary infiltrates. Massive mediastinal bronchial adenopathy consistent with tumor. Pulmonary infiltrates significantly increased compared to recent PET scan on 04/16/2021. Could represent lymphangitic metastatic disease in the left lung. Right upper lobe masslike infiltrate without change. MRI of the cervical spine revealed stable appearance of the cervical spine with reversal of the normal cervical lordosis, disc desiccation with disc bulging and multilevel central stenosis. No enhancing lesions of the cervical spine. Right supra-clavicular adenopathy. Blood cultures reveal no growth to date. Urine culture no growth. D-dimer 19.6. Sodium 134. Potassium 3.7. Bicarb 24. BUN 15. Creatinine 0.4. Influenza screen negative. RSV negative. COVID-19 screen negative. He is continued on heparin for DVT prophylaxis. Antibiotics in the form of cefepime. Remains on dexamethasone 1 mg daily. The patient is seen today 05/13/2021 in follow-up on the regular medical floor. He is resting comfortably in bed. Awake and alert in no acute distress. More oriented today compared to yesterday. He denies any worsening shortness of eula th, cough or congestion. The cultures reveal no growth. Urine culture revealed no growth. Follow-up blood cultures revealed no growth. White count 17.7. Hemoglobin 8.8. Platelets 152. Sodium 137. Potassium 3.5. BUN 17. Creatinine 0.3. He is continued on cefepime, dexamethasone. Heparin for DVT prophylaxis. The patient is seen today 05/14/2021 in follow-up on the regular medical floor. He is currently resting in bed. Awake and alert. Some issues with oxygen desaturations he was found with his oxygen off at one point with O2 saturation at 56%. He is currently at 92% on 6 L high flow nasal cannula. Chest x-ray reveals continued worsening left lung diffuse edema/infiltrates. Persistent right upper lobe lung nodule. Blood cultures revealing no growth. Urine culture no growth. Follow-up blood culture no growth. White count 22.7. Hemoglobin 8.7. Sodium 134. Potassium 3.6. Creatinine 0.3. Urine osmolality 960. He is continued on cefepime. 05/15/2021, the patient is being seen in follow-up. The patient is currently in the intensive care unit. Noted the patient got transferred to the ICU the patient was getting progressively more short of breath and hypoxic. There is development of an extensive left lung pneumonia in the setting of immunosuppression, lung cancer and chemotherapy. The patient initially presented to us with neutropenic fever. The patient is currently on examination Zosyn and vancomycin. He is laying down comfortably in bed. He is quite debilitated and getting progressively more weak. Nevertheless, this morning, his breathing is not much labored. Is on high flow oxygen utilizing Airvo and the patient is currently on 50 L with an FiO2 of 67% of the patient's current pulse ox is 96%. IV fluids are currently at KVO. White cell count is at 21 with a hemoglobin of 9 and a platelet count of 226. He is able to tolerate diet. Trace edema lower extremity is bilaterally. Remains on Decadron 1 mg by mouth on a daily basis. No altered mentation at this point in time. Sodium level is stable. 05/17/2071, condition is stable. The patient is repeat chest exit that that showed continue with left lung diffuse pulmonary infiltrates consistent with pneumonia. He does have underlying COPD and a right hilar small cell lung cancer, metastatic at this stage. The patient remains on Airvo and the patient is currently on 50 L with an FiO2 of 65%. Pulse ox 99%. He remains on examination Zosyn and vancomycin. White cell count is at 20 with a hemoglobin of 8.1 and a platelet count of 3:30. The bicarb is a 31 with a BUN of 14 and a creatinine of 0.9. No other significant events overnight. The patient remains on IV Solu Medrol. No altered mentation. No hemoptysis. No swelling in the face or arm. The chest x-ray findings and essentially stable. Oxidation remains stable on Airvo. On 05/17/2021 patient seen in follow-up in the intensive care unit, he is awake and alert, oriented 3, resting comfortably in bed, he remains on high flow oxygen per Airvo currently at 60 L/m and FiO2 at 85% and his pulse ox is 100%. However nurse reports that patient has very poor reserve, and easily desaturates and takes quite a while to recover with any exertion. Breathing quite comfortably at rest, we will continue dropping FiO2 as tolerated. Chest x-ray from yesterday showed continued left lung diffuse edema and/or infiltrate on background chronic emphysematous changes and no right upper lung neoplasm without significant change from one day earlier. Patient currently remains on IV steroids Solu-Medrol 60 mg every 6 hours, he is on nebulized bronchodilators, he is on empiric antibiotics in the form of Zosyn and vancomycin. ID Service is following, so far blood and urine cultures have been negative. His white blood cell count is improving on today's labs and is down to 17.5, hemoglobin is 7.4, platelet count is 414, sodium is 134, potassium is 3.3, chloride is 101, CO2 is 32, BUN is 17, creatinine 0.41. His pro calcitonin level was negative at 0.19. Patient tested negative for influenza A and B, RSV and COVID 19. On 05/19/2021 patient seen in follow-up on medical surgical floor. He is awake and alert, in no acute distress, his been off the Airvo, currently on 8 L per high flow nasal cannula and satting 95%, mildly short of breath with conversation and exertion, but otherwise seems to be breathing comfortably. He is resting in bed, he is eating breakfast this morning, denies any worsening shortness of breath or cough, last chest x-ray from yesterday showed continued left lung diffuse edema and/or infiltrate on background of chronic emphysematous change and no right upper lung neoplasm, left lung findings thought to be minimally improved from his most recent chest x-ray. Today's labs are still pending, yesterday's labs have been noted, white blood cell count was 24, hemoglobin was 8.2, sodium was 134, potassium is 3.8, chloride is 102, CO2 33, BUN is 21, creatinine 0.40. No fever or chills, vital signs been stable, no nausea vomiting or abdominal pain, tolerating oral intake. Patient continues on IV Solu-Medrol 60 mg every 6 hours, nebulized bronchodilators with DuoNeb, Zosyn and vancomycin. His blood and urine cultures have shown no growth. Objective - Vital Signs Vital signs: Vital Signs Temp 97.8 F 05/19/21 08:14 Pulse 94 05/19/21 09:28 Resp 18 05/19/21 08:14 BP 133/82 05/19/21 08:14 Pulse Ox 98 05/19/21 09:17 Intake & Output 05/18/21 05/19/21 05/19/21 18:59 06:59 18:59 Intake Total 1540 750 Output Total 900 Balance 640 750 Intake: IV 1200 750 Piperacillin-Tazobactam 3 200 100 .375 gm In Sodium Chloride 0.9% 100 ml @ 25 mls/hr IVPB Q8HR SUNG Rx# :[id number] Sodium Chloride 0.9% 1, 500 400 000 ml @ 50 mls/hr IV . Q20H SUNG Rx#:[id number] Vancomycin 1,000 mg In 500 250 Sodium Chloride 0.9% 250 ml @ 125 mls/hr IVPB Q8HR SUNG Rx#:[id number] Oral 340 Output: Urine 900 Other: Voiding Method External Catheter External Catheter # Voids 0 # Bowel Movements 1 - Exam GENERAL EXAM: Alert, very pleasant, 70-year-old white male, on 8 L of oxygen the pulse ox of 96-98%, comfortable in no apparent distress. HEAD: Normocephalic/atraumatic. EYES: Normal reaction of pupils, equal size. Conjunctiva pink, sclera white. NOSE: Clear with pink turbinates. THROAT: No erythema or exudates. NECK: No masses, no JVD, no thyroid enlargement, no adenopathy. CHEST: No chest wall deformity. Symmetrical expansion. LUNGS: Equal air entry with no crackles, wheeze, rhonchi or dullness. CVS: Regular rate and rhythm, normal S1 and S2, no gallops, no murmurs, no rubs ABDOMEN: Soft, nontender. No hepatosplenomegaly, normal bowel sounds, no guarding or rigidity. EXTREMITIES: No clubbing, no edema, no cyanosis, 2+ pulses and upper and lower extremities. MUSCULOSKELETAL: Muscle strength and tone normal. SPINE: No scoliosis or deformity SKIN: No rashes CENTRAL NERVOUS SYSTEM: Alert and oriented -3. No focal deficits, tone is normal in all 4 extremities. PSYCHIATRIC: Alert and oriented -3. Appropriate affect. Intact judgment and insight. - Labs CBC & Chem 7: 05/18/21 06:46 05/18/21 06:46 Labs: Abnormal Lab Results - Last 24 Hours (Table) 05/18/21 05/18/21 05/18/21 Range/Units 06:46 11:54 17:17 WBC 24.0 H (3.8-10.6) k/uL Neutrophils # (Manual) 18.20 H (1.3-7.7) k/uL Metamyelocytes # (Man) 1.20 H (0) k/uL Myelocytes # (Manual) 1.44 H (0) k/uL Nucleated RBCs 1 H (0-0) /100 WBC POC Glucose (mg/dL) 205 H 223 H (75-99) mg/dL 05/18/21 Range/Units 20:05 WBC (3.8-10.6) k/uL Neutrophils # (Manual) (1.3-7.7) k/uL Metamyelocytes # (Man) (0) k/uL Myelocytes # (Manual) (0) k/uL Nucleated RBCs (0-0) /100 WBC POC Glucose (mg/dL) 239 H (75-99) mg/dL Assessment and Plan Plan: Assessment: #1. Small cell lung cancer, stage IV, with early SVC syndrome, status post first cycle of systemic chemotherapy using carboplatin and [employer]-16 into centric #2. Acute hypoxic respiratory failure secondary to an extensive left lung pneumonia. Possibility of lymphangitic carcinomatosis is not completely excluded. The patient presented to the hospital with neutropenic fever and subsequently developed an extensive left lung pneumonia with secondary hypoxic respiratory failure. He currently remains on high flow oxygen per Airvo at 60 L and FiO2 of 85%. Remains on a combination of Zosyn and vancomycin #3. Pancytopenia, improved #4. Episodic SIADH, sodium level is 134, improved since admission #5. Altered mental status secondary to sepsis, improved #6. Hypertension #8. Osteoarthritis #9. Gait dysfunction #10. Underlying history of COPD with extensive tobacco and cigars use history Plan: Weaning FiO2, currently on 8 L Continue current antibiotics Patient is currently on Zosyn and vancomycin So far cultures are negative Yesterday's chest x-ray has been reviewed showing possible minimal improvement in the appearance of left lung pneumonia Today's labs are pending Clinically patient seems to be improving Generally patient is quite debilitated Physical therapy evaluation and treat Follow-up chest x-ray in the morning Continue fluid restrictions Continue IV steroids Continue breathing treatments I have personally seen and examined the patient, performed the documentation and the assessment and plan as written. Number of minutes spent on the visit: [10] Time with Patient: Less than 30
[2021-05-19 10:54] LABS: African American GFR (CKD) >90 (>60 ml/min/1.73 sqM); Anion Gap 2 mmol/L; Blood Urea Nitrogen 16 mg/dL (9-20); Calcium 7.4 mg/dL (8.4-10.2); Carbon Dioxide 35 mmol/L (22-30); Chloride 95 mmol/L (98-107); Glucose 181 mg/dL (74-99); Non-African American GFR(CKD) >90 (>60 ml/min/1.73 sqM); Potassium 3.3 mmol/L (3.5-5.1); Sodium 132 mmol/L (137-145)
[2021-05-19 11:32] LABS: Glucose,Whole Blood 295 mg/dL (75-99)
[2021-05-19] MEDS ORDERED: INSULIN ASPART (NovoLOG) 100 UNIT/ML VIAL SQ ONE (12:14)
[2021-05-19 13:10] LABS: Band Neutrophils % 3 %; Lymphocytes # (M) 2.93 k/uL (1.0-4.8); Metamyelocytes # (M) 0.73 k/uL (0); Metamyelocytes % 3 %; Monocytes # (M) 0.24 k/uL (0-1.0); Myelocytes # (M) 0.98 k/uL (0); Myelocytes % 4 %; Neutrophils % (M) 78 %; Nucleated Red Blood Cells 0 /100 WBC (0-0); Total Cells Counted 200
[2021-05-19 13:14] LABS: Polychromasia Present
[2021-05-19] MEDS ORDERED: Potassium Replacement Protocol 1 EACH MISC MISCELLANE PRN (13:32)
[2021-05-19] MEDS ORDERED: POTASSIUM CHLORIDE ER 20 MEQ TAB.ER PO SCH (14:00)
--- NOTE | 2021-05-19 14:25 | P.PN ---
Subjective Progress Note Date: 05/19/21 Principal diagnosis: SOB On medical floor, Appears improved since monday. Objective - Vital Signs Vital signs: Vital Signs Temp 98.4 F 05/19/21 12:31 Pulse 108 H 05/19/21 12:31 Resp 18 05/19/21 12:31 BP 136/75 05/19/21 12:31 Pulse Ox 100 05/19/21 12:31 Intake & Output 05/18/21 05/19/21 05/19/21 18:59 06:59 18:59 Intake Total 1540 750 Output Total 900 Balance 640 750 Intake: IV 1200 750 Piperacillin-Tazobactam 3 200 100 .375 gm In Sodium Chloride 0.9% 100 ml @ 25 mls/hr IVPB Q8HR SUNG Rx# :[id number] Sodium Chloride 0.9% 1, 500 400 000 ml @ 50 mls/hr IV . Q20H SUNG Rx#:[id number] Vancomycin 1,000 mg In 500 250 Sodium Chloride 0.9% 250 ml @ 125 mls/hr IVPB Q8HR SUNG Rx#:[id number] Oral 340 Output: Urine 900 Other: Voiding Method External Catheter External Catheter # Voids 0 # Bowel Movements 1 - Exam High Flow Increased effort with minimal threshold to stimuli Alert Irreg Abd ndnt Ext BLE mild edema Crackles and audible congestion, mild increased effort - Labs CBC & Chem 7: 05/19/21 10:16 05/19/21 10:16 Labs: Abnormal Lab Results - Last 24 Hours (Table) 05/18/21 05/18/21 05/19/21 Range/Units 17:17 20:05 10:16 WBC 24.4 H (3.8-10.6) k/uL RBC 2.72 L (4.30-5.90) m/uL Hgb 8.5 L (13.0-17.5) gm/dL Hct 25.3 L (39.0-53.0) % RDW 17.9 H (11.5-15.5) % Plt Count 779 H (150-450) k/uL Neutrophils # (Manual) 19.70 H (1.3-7.7) k/uL Metamyelocytes # (Man) 0.73 H (0) k/uL Myelocytes # (Manual) 0.98 H (0) k/uL Sodium (137-145) mmol/L Potassium (3.5-5.1) mmol/L Chloride (98-107) mmol/L Carbon Dioxide (22-30) mmol/L Creatinine (0.66-1.25) mg/dL Glucose (74-99) mg/dL POC Glucose (mg/dL) 223 H 239 H (75-99) mg/dL Calcium (8.4-10.2) mg/dL 05/19/21 05/19/21 Range/Units 10:16 11:30 WBC (3.8-10.6) k/uL RBC (4.30-5.90) m/uL Hgb (13.0-17.5) gm/dL Hct (39.0-53.0) % RDW (11.5-15.5) % Plt Count (150-450) k/uL Neutrophils # (Manual) (1.3-7.7) k/uL Metamyelocytes # (Man) (0) k/uL Myelocytes # (Manual) (0) k/uL Sodium 132 L (137-145) mmol/L Potassium 3.3 L (3.5-5.1) mmol/L Chloride 95 L (98-107) mmol/L Carbon Dioxide 35 H (22-30) mmol/L Creatinine 0.46 L (0.66-1.25) mg/dL Glucose 181 H (74-99) mg/dL POC Glucose (mg/dL) 295 H (75-99) mg/dL Calcium 7.4 L (8.4-10.2) mg/dL Assessment and Plan (1) Acute delirium Narrative/Plan: Improving, possibly related to hypoxia Current Visit: Yes Status: Acute Priority: High Code(s): R41.0 - DISORIENTATION, UNSPECIFIED SNOMED Code(s): 3120700 (2) Pancytopenia Narrative/Plan: Secondary to chemotherapy Current Visit: Yes Status: Acute Priority: Medium Code(s): D61.818 - OTHER PANCYTOPENIA SNOMED Code(s): 355721000 (3) Hyponatremia Current Visit: No Status: Acute Priority: High Code(s): E87.1 - HYPO- OSMOLALITY AND HYPONATREMIA SNOMED Code(s): 56126929 (4) Lung cancer Narrative/Plan: Status post cycle one of chemotherapy without neulasta Status post Carbo, [employer]-16 and immune therapy Goal is to recover from hospitalization and restart treatment as soon as safe Current Visit: No Status: Acute Code(s): C34.90 - MALIGNANT NEOPLASM OF UNSP PART OF UNSP BRONCHUS OR LUNG SNOMED Code(s): 762778408 (5) SIADH (syndrome of inappropriate ADH production) Narrative/Plan: Nephrology Current Visit: No Status: Acute Priority: Medium Code(s): E22.2 - SYNDROME OF INAPPROPRIATE SECRETION OF ANTIDIURETIC HORMONE SNOMED Code(s): 10345069 Plan: Assessment and Plan Fever Afebrile today Continue Supportive Care Pulmonary continues to follow Dr. Bruno: I have completed the full history an dphysical and developed the above impression and plan, agree with dictation dictated as a scribe.
[2021-05-19] MEDS: POTASSIUM CHLORIDE ER 20 MEQ TAB.ER PO SCH ×2 (15:49→17:18)
[2021-05-19 17:13] LABS: Glucose,Whole Blood 172 mg/dL (75-99)
[2021-05-19 20:12] LABS: Glucose,Whole Blood 169 mg/dL (75-99)
--- NOTE | 2021-05-19 20:20 | P.PN ---
Subjective Progress Note Date: 05/19/21 This is a pleasant 70-year-old male who was recently admitted with altered mental status and per the acute delirium. Patient was recently just discharged for severe hyponatremia. Patient was evaluated by physical therapy recommending subacute rehab although patient refused at that time and wanted to go home and Homecare was being arranged. Per patient continued to be confused and more altered and so was brought back to the hospital for further evaluation. Neurology and oncology been consulted and pending. Will also consult nephrology as patient sodium continues to be low and is currently 127. Patient does have an extensive past medical history of hypertension, osteoarthritis, EtOH abuse, and also small cell lung carcinoma and is currently receiving chemo immunotherapy treatments. Patient has been on high-dose steroids with a taper of Decadron per oncology services. Patient also recently had further workup with a bronchoscopy with biopsy in March that confirmed the small cell lung carcinoma and patient also underwent PET scan and findings were extensive stage IV disease. On admission to the ER labs were found to be a WBC of 1.3, hemoglobin 10.0, platelets were 100, sodium was 126, potassium 4.7, BUN 23, creatinine 0.33, magnesium 1.8, urinalysis is negative. Patient had a CT of the brain without contrast showing no evidence of intracranial hemorrhage mass effect or midline shift the white matter is grossly preserved and there is no acute intracranial abnormality noted. Patient was admitted for further evaluation and will also have PT/OT therapy evaluate the patient and will consult case management/bilingual social worker to evaluate for ECF. Consultations currently pending. 05/10/2021 Patient is seen and evaluated in follow-up today currently sitting up in the chair. Patient being followed closely by nephrology. Patient continues with confusion at times and recommend PT/OT evaluation for possible ECF. Oncology also following along with neurology and LS-spine MRI is ordered and pending at this time. Patient continues with low-grade fevers and is maintained on IV antibiotics and will continue. Infectious disease was consulted and pending. Patient received a dose of Samsca yesterday and sodium improved at 131 today and recommend continue with fluid restrictions and will repeat labs. 05/11/2021 Patient is seen in follow-up today no acute overnight issues noted. Multiple medical consultations including nephrology, oncology, neurology following. Infectious disease also following and patient is maintained on IV cefepime and vancomycin has been discontinued. Patient had been having low-grade temps with a T-max of 102.6 and is currently afebrile for the last 24 hours now. Sputum culture along with influenza and RSV testing currently pending. This was discussed with nursing staff and the cultures will be obtained. Patient underwent MRI of the LS spine and degenerative disc disease with facet arthropathy noted and also there were 2 nonspecific enhancing lumbosacral nerves that are negative and there is no suspicious clumping or nodular enhancement images suggest neoplastic involvement in the lumbosacral spine canal. Neurology following recommending outpatient follow-up with further EMG testing and studies is necessary. Sodium improved at 133 today and potassium found to be low at 3.2 and will replace magnesium is 1.8 today. Patient requiring 4 L of oxygen and states he does not wear oxygen in the outpatient setting and will consult pulmonary which is pending at this time. Patient denies chest pain or shortness of breath. Patient reported that he was told his oxygen saturation is low and placed on oxygen. 05/12/2021 Patient is seen in follow up and appears calm and in no distress. Patient is confused with periods of being appropriate. Patient has increased oxygen demand now at 6 L. D-dimer was elevated and CTA ordered with no evidence of PE. RSV, covid, influenza are negative. Patient is afebrile. Patient to have mri of the cervical spine today with neurology following. Possible pneumonia or viral illne ss being considered. 05/13/2021 Patient is seen and evaluated in follow-up today continues to be closely monitored with multiple medical consultations following. Patient more alert today although continues with periods of confusion. Patient currently sitting up in the chair and continues on 6 L via nasal cannula. WBC is elevated at 17.7 today possible component of recent chemotherapy versus dexamethasone use as patient is now afebrile. Physical therapy working with the patient daily patie nt continues to be weak requiring assistance although also continues to refuse rehab on discharge. Patient denying any chest pain or shortness of breath. Patient is afebrile. No report of nausea or vomiting noted and patient is tolerating diet. PT/OT to continue to follow daily. 05/14/2021 Patient is evaluated sitting up in bed and continues with low oxygen saturations. When asking the patient about shortness of breath, he denies, but his pulse ox readings continue to drop. Patient was found with his oxygen tubing off and oxygen saturation quickly dropped into the 50's and was placed back on his oxygen and recovered to 90% on 6L via NC. Patient is afebrile, WBC trending up today and is 22.76. Hemoglobin is 8.7. Sodium is 134. Sputum cultures pending. Patient was on cefepime. ID following. Chest xray today shows continuing left lung diffuse edema and or infiltrate. Pulmonary following. 05/15/2021 Patient is currently transferred to MICU. Admitted to hospital due to extensive left lung pneumonia, neutropenic fever and immunosuppression on chemotherapy due to lung cancer. Overnight patient had worsening breathing status and hypoxic. Patient was placed on BiPAP and was transferred to MICU. Currently continued on vancomycin and Zosyn. Transition to nasal cannula oxygen high flow with 50 L and FiO2 67%. Laboratory data showed WBC improved to 21.1 hemoglobin 9.0 and platelets 226 Sodium 130 potassium 3.5 chloride 98 bicarb is 32 BUN 21 creatinine 0.41 and calcium 7.4 05/16/2021 Patient is in the MICU. Currently requiring high flow oxygen Airvo at 50 L and FiO2 65%. Awake and alert. No complaints of chest pain. Continue to be on antibiotics in the form of vancomycin and Zosyn for left lower lobe pneumonia. Patient also has right hilar small cell lung cancer. Metastatic. Laboratory data showed WBC 20.3 hemoglobin 8.1 and platelets 330 sodium 131 potassium 4.2 chloride 100 bicarb is 31 BUN 49 creatinine 0.40 and blood sugar is 165 calcium 7.3. Patient has been afebrile. No nausea or vomiting or diarrhea. Tolerating oral diet. No cough or sputum production. No chest pain. Pulmonary and ID is on board. 05/17/2021 Patient is seen in follow up and continues in the ICU with pulmonary, oncology, and ID following. Patient is continued on Zosyn and Vanco and will continue. WBC trending down and is 17 today. Patient is afebrile. Patient continues on high f low airvo with settings of 60/85 abd continue to wean FI02 as tolerated. Encouraged increased activity as tolerated and continue with PT/OT. Oncology following and current treatment on hold until respiratory status improves. Patient also continued on IV steroids and breathing inhalational treatments and will continue. 05/18/2021 Patient is seen and evaluated in follow-up continues to be closely monitored in the ICU with multiple medical consultations following. WBC elevated at 24.2 hemoglobin is stable at 8.2. Sodium is stable at 134 with nephrology following. Recommend continue with fluid restrictions. Patient continues on high flow airvo 60/60 and slowly weaning as tolerated. Patient to continue with antibiotic therapy with infectious disease following closely as well. Per michael woo staff patient was having some urinary retention and straight catheter over 1100 output. Continue to monitor and bladder scan as needed and is continuing to retain may insert indwelling Pantoja catheter. Oncology, pulmonary, infectious disease following. Chest x-ray today shows continued left lung diffuse edema and/or infiltrates on background chronic emphysematous change in known right upper lung neoplasm left lung findings minimally improved from previous x-ray. Follow-up CT and MRI of the brain are negative with oncology following. Recommend holding current oncology treatment until improvement in current respiratory status. Continue to wean FiO2 as tolerated 05/19/2021 Patient is seen today and there is a long-time fellow coworker and friend visiting at the bedside. Patient continues currently on 8L HF NC and tolerating and needs continuous reminder to leave oxygen tubing on. Patient continues to desat quickly. Patient sodium stable at 133. Multiple medical consultations fol lowing. Patient in good spirits. Eating and tolerating diet. Blood sugars mildly elevated and will adjust sliding scale. WBC remains elevated. Patient is afebrile. Patient to continue on IV antibiotics and ID following. Patient denies chest pain or shortness of breath. Patient less winded during conversation. PT/OT daily. Encourage increase activity. Review of systems: Constitutional: No reports of fatigue, fever, or chills Cardiovascular: No reports of chest pain or palpitations Respiratory: No reports of worsening shortness of breath and feels improving GI: No reports of nausea, vomiting, or diarrhea : No reports of dysuria or retention Neurovascular: No reports of weakness or numbness All medications have been reviewed Active Medications Acetaminophen (Acetaminophen Tab 325 Mg Tab) 650 mg PO Q6HR PRN PRN Reason: Fever and/ or Pain Last Admin: 05/08/21 13:46 Dose: 650 mg Documented by: Albuterol/Ipratropium (Ipratropium-Albuterol 3 Ml Neb) 3 ml INHALATION RT-Q4H SUNG Last Admin: 05/19/21 11:55 Dose: 3 ml Documented by: Artificial Tears (Artificial Tears-Hypromellose Drops 15 Ml Btl) 1 drops BOTH EYES DAILY PRN PRN Reason: DRY EYES Folic Acid (Folic Acid 1 Mg Tab) 1 mg PO DAILY [facility] Last Admin: 05/19/21 08:26 Dose: 1 mg Documented by: Heparin Sodium (Porcine) (Heparin Sodium,Porcine/Pf 5,000 Unit/0.5 Ml Syringe) 5,000 unit SQ Q12HR [facility] Last Admin: 05/19/21 08:26 Dose: 5,000 unit Documented by: Sodium Chloride (Saline 0.9%) 1,000 mls @ 50 mls/hr IV .Q20H [facility] Last Admin: 05/19/21 05:50 Dose: Not Given Documented by: Piperacillin Sod/Tazobactam (Sod 3.375 gm/ Sodium Chloride) 100 mls @ 25 mls/hr IVPB Q8HR [facility]; Protocol Last Admin: 05/19/21 08:29 Dose: 25 mls/hr Documented by: Insulin Aspart (Insulin Aspart (Novolog) 100 Unit/Ml Vial) 0 unit SQ ACHS [facility]; Protocol Last Admin: 05/19/21 12:30 Dose: 8 unit Documented by: Insulin Detemir (Insulin Detemir (Levemir) 100 Unit/Ml Syr) 10 unit SQ HS [facility] Last Admin: 05/18/21 21:23 Dose: 10 unit Documented by: Linezolid (Linezolid 600 Mg Tab) 600 mg PO Q12HR [facility] Magnesium Oxide (Magnesium Oxide 400 Mg Tab) 400 mg PO DAILY [facility] Last Admin: 05/19/21 08:26 Dose: 400 mg Documented by: Methylprednisolone Sodium Succinate (Methylprednisolone Sod Succi 125 Mg/2 Ml Vial) 60 mg IV Q6HR [facility] Last Admin: 05/19/21 12:30 Dose: 60 mg Documented by: Miscellaneous Information (Potassium Replacement Protocol 1 Each Misc) 1 each MISCELLANE DAILY PRN; Protocol PRN Reason: Per Protocol Miscellaneous Information (Potassium Replacement Protocol 1 Each Misc) 1 each MISCELLANE DAILY PRN; Protocol PRN Reason: Per Protocol Naloxone HCl (Naloxone 0.4 Mg/Ml 1 Ml Vial) 0.2 mg IV Q2M PRN PRN Reason: Opioid Reversal Olanzapine (Olanzapine 2.5 Mg Tab) 2.5 mg PO DAILY [facility] Stop: 05/21/21 23:00 Last Admin: 05/19/21 08:28 Dose: 2.5 mg Documented by: Ondansetron HCl (Ondansetron 4 Mg Tab) 4 mg PO Q4H PRN PRN Reason: Nausea Last Admin: 05/18/21 05:18 Dose: 4 mg Documented by: Pantoprazole Sodium (Pantoprazole 40 Mg Tablet) 40 mg PO -BRKFST [facility] Last Admin: 05/19/21 08:26 Dose: 40 mg Documented by: Potassium Chloride (Potassium Chloride Er 20 Meq Tab.Er) 20 meq PO Q1HR [facility]; Protocol Stop: 05/19/21 15:01 Sodium Chloride (Sodium Chloride 0.65% Nasal [place] 44 Ml Btl) 2 spray NASAL QID PRN PRN Reason: Dry Nasal Passages Last Admin: 05/19/21 10:34 Dose: 2 spray Documented by: PHYSICAL EXAMINATION: GENERAL: The patient is alert and awake, thin built, cachectic, ill-appearing. More awake and alert and up in the chair HEENT: Pupils are round and equally reacting to light. EOMI. no scleral icterus. No conjunctival pallor. Normocephalic, atraumatic. No pharyngeal erythema. No thyromegaly. CARDIOVASCULAR: S1 and S2 muffled PULMONARY: diminished breath sounds bilaterally with some scattered rhonchi noted. ABDOMEN: soft. Non-tender on exam. Thin built. non-distended, normoactive bowel sounds. No palpable organomegaly. MUSCULOSKELETAL: No joint swelling or deformity. EXTREMITIES: No cyanosis, clubbing, or pedal edema. NEUROLOGICAL: Gross neurological examination did not reveal any focal deficits. Diffuse weakness SKIN: No rashes. Assessment: Acute delirium Fever, sepsis, present on admission LLL pneumonia elevated d-dimer with no evidence of PE on CT Acute hypoxic respiratory failure possibly secondary to stage IV lung carcinoma, requiring BIPAP and now on 8L HF Severe Gait dysfunction Generalized weakness Hyponatremia, improved Pancytopenia Small cell lung carcinoma, receiving chemotherapy treatments Underlying COPD with extensive tobacco and cigar use history GI prophylaxis DVT prophylaxis Full code Plan: Recommend to continue with current medications and symptomatic treatment. Multiple medical consultations including neurology, nephrology, oncology following. Pulmonary also following and continues on 8L hf and slowly improving. Wean FI02 as tolerated. Patient awaiting transfer out of the ICU and will return to oncology unit. Vancomycin discontinued. Patient now on zosyn and zyvox. Infectious disease following as well. Sodium stable and continues on fluid restrictions. PT/OT following and continues to be weak. Repeat labs ordered for am. Due to multiple complex medical issues, overall prognosis is extremely guarded. Continue to wean FI02 as tolerated. The impression and plan of care has been dictated by Keren Dickson, nurse practitioner as directed. Dr. Edith MD I have performed a history and examination and MDM of this patient, discussed the same with the dictator, and agree with the dictator's assessment and plan as written ,documented as a scribe. Based on total visit time, I have performed more than 50% of the visit. Objective - Vital Signs Vital signs: Vital Signs Temp 97.8 F 05/19/21 08:14 Pulse 94 05/19/21 09:28 Resp 18 05/19/21 08:14 BP 133/82 05/19/21 08:14 Pulse Ox 98 05/19/21 09:17 Intake & Output 05/18/21 05/19/21 05/19/21 18:59 06:59 18:59 Intake Total 1540 750 Output Total 900 Balance 640 750 Intake: IV 1200 750 Piperacillin-Tazobactam 3 200 100 .375 gm In Sodium Chloride 0.9% 100 ml @ 25 mls/hr IVPB Q8HR SUNG Rx# :[id number] Sodium Chloride 0.9% 1, 500 400 000 ml @ 50 mls/hr IV . Q20H SUNG Rx#:[id number] Vancomycin 1,000 mg In 500 250 Sodium Chloride 0.9% 250 ml @ 125 mls/hr IVPB Q8HR SUNG Rx#:[id number] Oral 340 Output: Urine 900 Other: Voiding Method External Catheter External Catheter # Voids 0 # Bowel Movements 1 - Labs CBC & Chem 7: 05/19/21 10:16 05/19/21 10:16 Labs: Abnormal Lab Results - Last 24 Hours (Table) 05/18/21 05/18/21 05/18/21 Range/Units 06:46 11:54 17:17 WBC 24.0 H (3.8-10.6) k/uL Neutrophils # (Manual) 18.20 H (1.3-7.7) k/uL Metamyelocytes # (Man) 1.20 H (0) k/uL Myelocytes # (Manual) 1.44 H (0) k/uL Nucleated RBCs 1 H (0-0) /100 WBC POC Glucose (mg/dL) 205 H 223 H (75-99) mg/dL 05/18/21 Range/Units 20:05 WBC (3.8-10.6) k/uL Neutrophils # (Manual) (1.3-7.7) k/uL Metamyelocytes # (Man) (0) k/uL Myelocytes # (Manual) (0) k/uL Nucleated RBCs (0-0) /100 WBC POC Glucose (mg/dL) 239 H (75-99) mg/dL
[2021-05-19] MEDS: INSULIN DETEMIR (LEVEMIR) 100 UNIT/ML SYR SQ SCH (20:23)
[2021-05-19] MEDS: LINEZOLID 600 MG TAB PO SCH (21:01)
--- NOTE | 2021-05-19 22:27 | P.PN ---
Subjective Progress Note Date: 05/19/21 Principal diagnosis: Febrile neutropenia Patient is a 70 year old male with a past medical history significant for metastatic right upper lobe small cell cancer diagnosed in 04/12/2021 for the patient is currently on chemotherapy presented to hospital weakness subsequent spiking a fever and did have low white count. Patient did have a CT and a gram of the chest completed on 05/11/2021 with evidence of right upper lobe consolidation any increasing infiltrate On today's evaluation that is 05/19/2021 the patient denies any fever or any chills, the patient is breathing comfortably on nasal cannula oxygen , patient denies chest pain , the patient did have a cough but not bringing up any sputum , the patient denies abdominal pain and no diarrhea Objective - Vital Signs Vital signs: Vital Signs Temp 97.8 F 05/19/21 08:14 Pulse 92 05/19/21 12:09 Resp 20 05/19/21 11:09 BP 133/82 05/19/21 08:14 Pulse Ox 98 05/19/21 09:17 Intake & Output 05/18/21 05/19/21 05/19/21 18:59 06:59 18:59 Intake Total 1540 750 Output Total 900 Balance 640 750 Intake: IV 1200 750 Piperacillin-Tazobactam 3 200 100 .375 gm In Sodium Chloride 0.9% 100 ml @ 25 mls/hr IVPB Q8HR SUNG Rx# :[id number] Sodium Chloride 0.9% 1, 500 400 000 ml @ 50 mls/hr IV . Q20H SUNG Rx#:[id number] Vancomycin 1,000 mg In 500 250 Sodium Chloride 0.9% 250 ml @ 125 mls/hr IVPB Q8HR SUNG Rx#:[id number] Oral 340 Output: Urine 900 Other: Voiding Method External Catheter External Catheter # Voids 0 # Bowel Movements 1 - Exam GENERAL DESCRIPTION: An elderly male lying in bed in no distress RESPIRATORY SYSTEM: Unlabored breathing , decreased breath sounds at bases HEART: S1 S2 regular rate and rhythm , ABDOMEN: Soft , no tenderness EXTREMITIES: No edema feet - Labs CBC & Chem 7: 05/19/21 10:16 05/19/21 10:16 Labs: Abnormal Lab Results - Last 24 Hours (Table) 05/18/21 05/18/21 05/19/21 Range/Units 17:17 20:05 10:16 WBC 24.4 H (3.8-10.6) k/uL RBC 2.72 L (4.30-5.90) m/uL Hgb 8.5 L (13.0-17.5) gm/dL Hct 25.3 L (39.0-53.0) % RDW 17.9 H (11.5-15.5) % Plt Count 779 H (150-450) k/uL Sodium (137-145) mmol/L Potassium (3.5-5.1) mmol/L Chloride (98-107) mmol/L Carbon Dioxide (22-30) mmol/L Creatinine (0.66-1.25) mg/dL Glucose (74-99) mg/dL POC Glucose (mg/dL) 223 H 239 H (75-99) mg/dL Calcium (8.4-10.2) mg/dL 05/19/21/ Range/Units 10:16 11:30 WBC (3.8-10.6) k/uL RBC (4.30-5.90) m/uL Hgb (13.0-17.5) gm/dL Hct (39.0-53.0) % RDW (11.5-15.5) % Plt Count (150-450) k/uL Sodium 132 L (137-145) mmol/L Potassium 3.3 L (3.5-5.1) mmol/L Chloride 95 L (98-107) mmol/L Carbon Dioxide 35 H (22-30) mmol/L Creatinine 0.46 L (0.66-1.25) mg/dL Glucose 181 H (74-99) mg/dL POC Glucose (mg/dL) 295 H (75-99) mg/dL Calcium 7.4 L (8.4-10.2) mg/dL Assessment and Plan (1) Fever Current Visit: Yes Status: Acute Code(s): R50.9 - FEVER, UNSPECIFIED SNOMED Code(s): 123457156 Plan: 1patient with a stage IV small cell cancer right upper lobe this patient has been started on chemotherapy presented to the hospital with some mental status changes and has developed a fever source is likely right upper lobe pneumonia as no other obvious focus of infection urine has been negative abdominal soft on c linical examination no evidence of any cellulitis or joint swelling. 2 patient to continue zosyn however we will switch vancomycin to oral Zyvox to decrease risk of nephrotoxicity, we'll try to obtain a sputum culture to narrow down on his antibiotics Time with Patient: Less than 30
[2021-05-20] MEDS: IPRATROPIUM-ALBUTEROL 3 ML NEB INHALATION SCH ×6 (03:36→23:45)
[2021-05-20] MEDS: methylPREDNISolone SOD SUCCI 125 MG/2 ML VIAL IV SCH ×3 (05:50→17:32)
[2021-05-20 07:39] LABS: Glucose,Whole Blood 310 mg/dL (75-99)
[2021-05-20] MEDS: PIPERACILLIN-TAZOBACTAM 3.375 GM in SODIUM CHLORIDE 0.9% 100 ML IVPB SCH ×2 (08:28→16:12)
[2021-05-20] MEDS: INSULIN ASPART (NovoLOG) 100 UNIT/ML VIAL SQ SCH ×4 (08:30→20:37)
[2021-05-20] MEDS: HEPARIN SODIUM,PORCINE/PF 5,000 UNIT/0.5 ML SYRINGE SQ SCH ×2 (08:37→20:37)
[2021-05-20] MEDS: OLANZapine 2.5 MG TAB PO SCH (08:37)
[2021-05-20] MEDS: MAGNESIUM OXIDE 400 MG TAB PO SCH (08:38)
[2021-05-20] MEDS: LINEZOLID 600 MG TAB PO SCH ×2 (08:38→20:38)
[2021-05-20] MEDS: PANTOPRAZOLE 40 MG TABLET PO SCH (08:38)
[2021-05-20] MEDS: FOLIC ACID 1 MG TAB PO SCH (08:38)
[2021-05-20 08:41] LABS: African American GFR (CKD) >90 (>60 ml/min/1.73 sqM); Anion Gap 2 mmol/L; Blood Urea Nitrogen 12 mg/dL (9-20); Calcium 7.4 mg/dL (8.4-10.2); Carbon Dioxide 33 mmol/L (22-30); Chloride 95 mmol/L (98-107); Glucose 273 mg/dL (74-99); Non-African American GFR(CKD) >90 (>60 ml/min/1.73 sqM); Potassium 3.6 mmol/L (3.5-5.1); Sodium 130 mmol/L (137-145)
[2021-05-20 08:54] LABS: Anisocytosis Slight; HCT 26.8 % (39.0-53.0); HGB 8.8 gm/dL (13.0-17.5); MCH 31.2 pg (25.0-35.0); MCHC 32.7 g/dL (31.0-37.0); MCV 95.3 fL (80.0-100.0); Macrocytosis Slight; Mean Platelet Volume 8.4; Platelet Count 800 k/uL (150-450); Poikilocytosis Slight; RBC 2.82 m/uL (4.30-5.90); RDW 17.7 % (11.5-15.5)
--- NOTE | 2021-05-20 09:51 | XR ---
EXAMINATION TYPE: XR chest 1V portable DATE OF EXAM: 05/20/2021 COMPARISON: 05/18/2021 INDICATION: Dyspnea TECHNIQUE: Single frontal view of the chest is obtained. FINDINGS: The heart size is normal. The pulmonary vasculature is somewhat prominent. Diffuse opacity through the left lung. Right apical findings remain present. IMPRESSION: 1. Persistent left lung infiltrate. Correlate for pneumonia or atypical pneumonia pulmonary edema. 2. Right apical nodularity or infiltrate
--- NOTE | 2021-05-20 10:59 | P.PN ---
Subjective Progress Note Date: 05/20/21 This is a 68-year-old male patient is known to me. 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 I establish his diagnosis through bronchoscopy and endobronchial ultrasound with no fine-needle aspirate. The patient also was having issues with hyponatremia with a sodium was dropping consistent with underlying SIADH. He was in the hospital on 05/01/2021 after the had a sodium level 113 and the patient had a witnessed seizure. He was in the intensive care unit. CAT scan of the brain was completed and it showed no evidence of any [employer] metastases. His chest x-ray was still showing a right hilar mass and the patient was subjected to fluid restriction, hypertonic saline at patient was discharged home to be readmitted within 48 hours because of altered mentation. The patient was accordingly admitted again to the hospital. The patient was found to be febrile and the patient was treated for neutropenic fever. Noted the patient has already received a first session of systemic chemotherapy on 04/28/2021 and he completed that on 04/30/2021. MRI of the brain with and without contrast done on 03/27/2021 showed moderate atrophy. No evidence of any metastases. For now, the patient is on the oncology floor. He is being followed up by oncology, neurology and nephrology. The patient had a temperature of 102.6 and initially the patient was covered with a combination of antibiotics including cefepime and vancomycin. Subsequently, infectious disease discontinued the vancomycin and the patient is only on IV cefepime for now.. MRI of the lumbosacral spine showed degenerative disc disease and facet arthropathy and some nonspecific enhancing lumbosacral nerves that may be vascular but it is indeterminate. Note that the patient's fever has broken the patient has been afebrile over the past 24 hours. Nevertheless, he is slightly tachycardic. His white cell count during this current admission was as low as 1.2 and currently is up to 7.6. Hemoglobin is at 8.5. Platelet count is at 95. His d-dimer was at 19.6. BUN is at 14 with a creatinine of 0.3, and the sodium level of 133. The blood cultures been negative. The urine culture has been negative. The patient was given zarxio The patient is seen today 05/12/2021 in follow-up on the regular medical floor. He is currently resting in bed. Awake and alert in no acute distress. More oriented today compared to yesterday. He is maintaining O2 saturation in the low 90s on 6 L high flow nasal cannula. He's been afebrile. Hemodynamically stable. Dopplers of the lower extremities negative for DVT. CT angiogram ruled out pulmonary embolism. There is extensive pulmonary infiltrates. Massive mediastinal bronchial adenopathy consistent with tumor. Pulmonary infiltrates significantly increased compared to recent PET scan on 04/16/2021. Could represent lymphangitic metastatic disease in the left lung. Right upper lobe masslike infiltrate without change. MRI of the cervical spine revealed stable appearance of the cervical spine with reversal of the normal cervical lordosis, disc desiccation with disc bulging and multilevel central stenosis. No enhancing lesions of the cervical spine. Right supra-clavicular adenopathy. Blood cultures reveal no growth to date. Urine culture no growth. D-dimer 19.6. Sodium 134. Potassium 3.7. Bicarb 24. BUN 15. Creatinine 0.4. In fluenza screen negative. RSV negative. COVID-19 screen negative. He is continued on heparin for DVT prophylaxis. Antibiotics in the form of cefepime. Remains on dexamethasone 1 mg daily. The patient is seen today 05/13/2021 in follow-up on the regular medical floor. He is resting comfortably in bed. Awake and alert in no acute distress. More oriented today compared to yesterday. He denies any worsening shortness of breath, cough or congestion. The cultures reveal no growth. Urine culture revealed no growth. Follow-up blood cultures revealed no growth. White count 17.7. Hemoglobin 8.8. Platelets 152. Sodium 137. Potassium 3.5. BUN 17. Creatinine 0.3. He is continued on cefepime, dexamethasone. Heparin for DVT prophylaxis. The patient is seen today 05/14/2021 in follow-up on the regular medical floor. He is currently resting in bed. Awake and alert. Some issues with oxygen desaturations he was found with his oxygen off at one point with O2 saturation at 56%. He is currently at 92% on 6 L high flow nasal cannula. Chest x-ray reveals continued worsening left lung diffuse edema/infiltrates. Persistent right upper lobe lung nodule. Blood cultures revealing no growth. Urine culture no growth. Follow-up blood culture no growth. White count 22.7. Hemoglobin 8.7. Sodium 134. Potassium 3.6. Creatinine 0.3. Urine osmolality 960. He is continued on cefepime. The patient is seen today 05/18/2021 in follow-up in the intensive care unit. He is currently resting fairly comfortably in bed. Awake and alert in no acute distress. He remains on AirVo high flow oxygen at 60 L and 70% FiO2. Normal saline at 50 MLS per hour. No worsening shortness of breath, cough or congestion. Chest x-ray continues to show left lung diffuse edema/infiltrates on background chronic emphysema. Known right upper lung neoplasm. Left lung findings minimally improved. Blood cultures revealed no growth. Urine culture reveals no growth. White count 24.2. Hemoglobin 8.2. Platelets 578. Sodium 134. Potassium 3.8. BUN 21. Creatinine 0.4. He is continued on DuoNeb inhalations, IV Solu-Medrol, vancomycin and Zosyn. The patient is seen today 05/20/2021 in follow-up on the regular medical floor. He is currently sitting up in bed. Awake and alert in no acute distress. He is currently on 6 L high flow nasal cannula with O2 saturations in the upper 90s. His been afebrile. Hemodynamically stable. Chest x-ray shows persistent left lung infiltrate. Right apical nodularity is/infiltrate. Blood and urine cultures revealed no growth. White count 24.5. Hemoglobin 8.8. Platelet count 800,000. Sodium 130. Potassium 3.6. Bicarb 33. BUN 12. Creatinine 0.46. Glucose 273. He is continued on DuoNeb inhalations, IV Solu-Medrol and antibiotics in the form of Zosyn. Heparin for DVT prophylaxis. Objective - Vital Signs Vital signs: Vital Signs Temp 97.7 F 05/20/21 08:59 Pulse 88 05/20/21 09:36 Resp 18 05/20/21 09:36 BP 154/82 05/20/21 08:59 Pulse Ox 99 05/20/21 08:59 Intake & Output 05/19/21 05/20/21 05/20/21 18:59 06:59 18:59 Intake Total 1350 700 Output Total 1999 1800 Balance -650 -1100 Intake: IV 1350 700 Piperacillin-Tazobactam 3 100 100 .375 gm In Sodium Chloride 0.9% 100 ml @ 25 mls/hr IVPB Q8HR SUNG Rx# :[id number] Sodium Chloride 0.9% 1, 1000 600 000 ml @ 50 mls/hr IV . Q20H SUNG Rx#:[id number] Vancomycin 1,000 mg In 250 Sodium Chloride 0.9% 250 ml @ 125 mls/hr IVPB Q8HR SUNG Rx#:[id number] Output: Urine 2000 1800 Uretheral (Pantoja) 1000 1800 Other: Voiding Method External Catheter External Catheter - Exam GENERAL EXAM: Alert, pleasant, frail 70-year-old male patient, on 6 L high flow nasal cannula, in no acute distress HEAD: Normocephalic/atraumatic. EYES: Normal reaction of pupils, equal size. Conjunctiva pink, sclera white. NOSE: Clear with pink turbinates. THROAT: No erythema or exudates. NECK: No masses, no JVD, no thyroid enlargement, no adenopathy. CHEST: No chest wall deformity. Symmetrical expansion. LUNGS: Equal air entry with bilateral scattered rhonchi CVS: Regular rate and rhythm, normal S1 and S2, no gallops, no murmurs, no rubs ABDOMEN: Soft, nontender. No hepatosplenomegaly, normal bowel sounds, no guarding or rigidity. EXTREMITIES: No clubbing, no edema, no cyanosis, 2+ pulses and upper and lower extremities. MUSCULOSKELETAL: Muscle strength and tone normal. SPINE: No scoliosis or deformity SKIN: No rashes CENTRAL NERVOUS SYSTEM: Alert and occasionally confused. No focal deficits, tone is normal in all 4 extremities. No neck stiffness PSYCHIATRIC: Alert and oriented -3. Appropriate affect. Intact judgment and i nsight. - Labs CBC & Chem 7: 05/20/21 07:50 05/20/21 07:50 Labs: Abnormal Lab Results - Last 24 Hours (Table) 05/19/21 05/19/21 05/19/21 Range/Units 10:16 10:16 11:30 WBC (3.8-10.6) k/uL RBC (4.30-5.90) m/uL Hgb (13.0-17.5) gm/dL Hct (39.0-53.0) % RDW (11.5-15.5) % Plt Count (150-450) k/uL Neutrophils # (Manual) 19.70 H (1.3-7.7) k/uL Metamyelocytes # (Man) 0.73 H (0) k/uL Myelocytes # (Manual) 0.98 H (0) k/uL Sodium 132 L (137-145) mmol/L Potassium 3.3 L (3.5-5.1) mmol/L Chloride 95 L (98-107) mmol/L Carbon Dioxide 35 H (22-30) mmol/L Creatinine 0.46 L (0.66-1.25) mg/dL Glucose 181 H (74-99) mg/dL POC Glucose (mg/dL) 295 H (75-99) mg/dL Calcium 7.4 L (8.4-10.2) mg/dL 05/19/21 05/19/21 05/20/21 Range/Units 17:08 20:10 07:37 WBC (3.8-10.6) k/uL RBC (4.30-5.90) m/uL Hgb (13.0-17.5) gm/dL Hct (39.0-53.0) % RDW (11.5-15.5) % Plt Count (150-450) k/uL Neutrophils # (Manual) (1.3-7.7) k/uL Metamyelocytes # (Man) (0) k/uL Myelocytes # (Manual) (0) k/uL Sodium (137-145) mmol/L Potassium (3.5-5.1) mmol/L Chloride (98-107) mmol/L Carbon Dioxide (22-30) mmol/L Creatinine (0.66-1.25) mg/dL Glucose (74-99) mg/dL POC Glucose (mg/dL) 172 H 169 H 310 H (75-99) mg/dL Calcium (8.4-10.2) mg/dL 05/20/21 05/20/21 Range/Units 07:50 07:50 WBC 24.5 H (3.8-10.6) k/uL RBC 2.82 L (4.30-5.90) m/uL Hgb 8.8 L (13.0-17.5) gm/dL Hct 26.8 L (39.0-53.0) % RDW 17.7 H (11.5-15.5) % Plt Count 800 H (150-450) k/uL Neutrophils # (Manual) (1.3-7.7) k/uL Metamyelocytes # (Man) (0) k/uL Myelocytes # (Manual) (0) k/uL Sodium 130 L (137-145) mmol/L Potassium (3.5-5.1) mmol/L Chloride 95 L (98-107) mmol/L Carbon Dioxide 33 H (22-30) mmol/L Creatinine 0.46 L (0.66-1.25) mg/dL Glucose 273 H (74-99) mg/dL POC Glucose (mg/dL) (75-99) mg/dL Calcium 7.4 L (8.4-10.2) mg/dL Assessment and Plan Assessment: 1 small cell lung cancer, early SVC syndrome, status post first cycle of systemic chemotherapy using carboplatin and [employer] [place]-16 and Tecentriq 2 neutropenic fever, improving currently afebrile 3 acute febrile illness, Suspect secondary to underlying pneumonia more so on the left lung him a currently on cefepime 4 acute hypoxic respiratory failure secondary to sepsis, underlying lung cancer him a currently on AirVo high flow oxygen 5 episodic SIDH, sodium level is adequate for now 6 altered mentation secondary to sepsis 7 hypertension 8 osteoarthritis 9 latent TB back in 1996 Plan: The patient was seen and evaluated Chest x-ray and labs reviewed Continued on oxygen now at 6 L down from 10 L high flow nasal cannula Continue to titrate down the FiO2 as tolerated Continue Zosyn, bronchodilators, IV Solu-Medrol No plans for bronchoscopy at this time due to the patient's high oxygen requirement We will continue to follow I have personally seen and examined the patient, performed the documentation and the assessment and plan as written. Number of minutes spent on the visit: 10.
[2021-05-20 11:34] LABS: Glucose,Whole Blood 275 mg/dL (75-99)
[2021-05-20 11:59] LABS: Band Neutrophils % 4 %; Metamyelocytes % 4 %; Myelocytes % 4 %; Neutrophils % (M) 78 %; Nucleated Red Blood Cells 8 /100 WBC (0-0); Promyelocytes % 2 %; Total Cells Counted 200
[2021-05-20 12:00] LABS: Lymphocytes # (M) 1.59 k/uL (1.0-4.8); Metamyelocytes # (M) 0.91 k/uL (0); Monocytes # (M) 0.68 k/uL (0-1.0); Myelocytes # (M) 0.91 k/uL (0); Promyelocytes # (M) 0.45 k/uL (0); WBC 22.7 k/uL (3.8-10.6)
[2021-05-20 12:02] LABS: Polychromasia Present
[2021-05-20 12:03] LABS: Basophilic Stippling Present
--- NOTE | 2021-05-20 12:40 | P.PN ---
Subjective This is a pleasant 70-year-old male who was recently admitted with altered mental status and per the acute delirium. Patient was recently just discharged for severe hyponatremia. Patient was evaluated by physical therapy recommending subacute rehab although patient refused at that time and wanted to go home and Homecare was being arranged. Per patient continued to be confused and more altered and so was brought back to the hospital for further evaluation. Neurology and oncology been consulted and pending. Will also consult nephrology as patient sodium continues to be low and is currently 127. Patient does have an extensive past medical history of hypertension, osteoarthritis, EtOH abuse, and also small cell lung carcinoma and is currently receiving chemo immunotherapy treatments. Patient has been on high-dose steroids with a taper of Decadron per oncology services. Patient also recently had further workup with a bronchoscopy with biopsy in March that confirmed the small cell lung carcinoma and patient also underwent PET scan and findings were extensive stage IV disease. On admission to the ER labs were found to be a WBC of 1.3, hemoglobin 10.0, platelets were 100, sodium was 126, potassium 4.7, BUN 23, creatinine 0.33, magnesium 1.8, urinalysis is negative. Patient had a CT of the brain without contrast showing no evidence of intracranial hemorrhage mass effect or midline shift the white matter is grossly preserved and there is no acute intracranial abnormality noted. Patient was admitted for further evaluation and will also have PT/OT therapy evaluate the patient and will consult case management/social media campaign manager to evaluate for ECF. Consultations currently pending. 05/10/2021 Patient is seen and evaluated in follow-up today currently sitting up in the chair. Patient being followed closely by nephrology. Patient continues with confusion at times and recommend PT/OT evaluation for possible ECF. Oncology also following along with neurology and LS-spine MRI is ordered and pending at this time. Patient continues with low-grade fevers and is maintained on IV antibiotics and will continue. Infectious disease was consulted and pending. Patient received a dose of Samsca yesterday and sodium improved at 131 today and recommend continue with fluid restrictions and will repeat labs. 05/17/2021 Patient is seen in follow up and continues in the ICU with pulmonary, oncology, and ID following. Patient is continued on Zosyn and Vanco and will continue. WBC trending down and is 17 today. Patient is afebrile. Patient continues on high flow airvo with settings of 60/85 abd continue to wean FI02 as tolerated. Encouraged increased activity as tolerated and continue with PT/OT. Oncology following and current treatment on hold until respiratory status improves. Patient also continued on IV steroids and breathing inhalational treatments and will continue. 05/18/2021 Patient is seen and evaluated in follow-up continues to be closely monitored in the ICU with multiple medical consultations following. WBC elevated at 24.2 hemoglobin is stable at 8.2. Sodium is stable at 134 with nephrology following. Recommend continue with fluid restrictions. Patient continues on high flow airvo 60/60 and slowly weaning as tolerated. Patient to continue with antibiotic therapy with infectious disease following closely as well. Per nursing staff patient was having some urinary retention and straight catheter over 1100 output. Continue to monitor and bladder scan as needed and is c ontinuing to retain may insert indwelling Pantoja catheter. Oncology, pulmonary, infectious disease following. Chest x-ray today shows continued left lung diffuse edema and/or infiltrates on background chronic emphysematous change in known right upper lung neoplasm left lung findings minimally improved from previous x-ray. Follow-up CT and MRI of the brain are negative with oncology following. Recommend holding current oncology treatment until improvement in current respiratory status. Continue to wean FiO2 as tolerated 05/19/2021 Patient is seen today and there is a long-time fellow coworker and friend visiting at the bedside. Patient continues currently on 8L HF NC and tolerating and needs continuous reminder to leave oxygen tubing on. Patient continues to desat quickly. Patient sodium stable at 133. Multiple medical consultations following. Patient in good spirits. Eating and tolerating diet. Blood sugars mildly elevated and will adjust sliding scale. WBC remains elevated. Patient is afebrile. Patient to continue on IV antibiotics and ID following. Patient denies chest pain or shortness of breath. Patient less winded during conversation. PT/OT daily. Encourage increase activity. Subjective: 05/20/2021 This is a pleasant 70 years old male with evidence of right upper lung mass secondary to advanced small cell lung cancer with hilar lymphadenopathy and extensive bilateral infiltrate, more on the left side suspicious for pneumonia and possible lymphangitic metastases more on the left side Patient is awake and alert but he still have difficulty breathing with exertion more than with rest, he is able to talk with short sentences., Oxygen requirement improvement from 10 down to 6 L per minute today.leukocytosis of 22,000, hemoglobin 8.8, sodium 1:30, glucose 275-300+ Patient currently kept on Zyvox, Zosyn, Solu-Medrol 60 mg of normal saline 50 mL/h. I discussed the case with renal case manager/psychologist social Jhonatan, patient does not want to go to rehab and he is a from [place] and is going to need oxygen upon discharge. Objective - Vital Signs Vital signs: Vital Signs Temp 97.9 F 05/20/21 12:17 Pulse 104 H 05/20/21 12:17 Resp 16 05/20/21 12:17 BP 153/84 05/20/21 12:17 Pulse Ox 100 05/20/21 12:17 Intake & Output 05/19/21 05/20/21 05/20/21 18:59 06:59 18:59 Intake Total 1350 700 Output Total 2000 1800 Balance -650 -1100 Intake: IV 1350 700 Piperacillin-Tazobactam 3 100 100 .375 gm In Sodium Chloride 0.9% 100 ml @ 25 mls/hr IVPB Q8HR [facility]G Rx# :[id number] Sodium Chloride 0.9% 1, 1000 600 000 ml @ 50 mls/hr IV . Q20H SUNG Rx#:[id number] Vancomycin 1,000 mg In 250 Sodium Chloride 0.9% 250 ml @ 125 mls/hr IVPB Q8HR SUNG Rx#:[id number] Output: Urine 2000 1800 Uretheral (Pantoja) 1000 1800 Other: Voiding Method External Catheter External Catheter - Exam GENERAL: The patient is alert and oriented x3, not in any acute distress. Well developed, well nourished. HEENT: Pupils are round and equally reacting to light. EOMI. No scleral icterus. No conjunctival pallor. Normocephalic, atraumatic. No pharyngeal erythema. No thyromegaly. CARDIOVASCULAR: S1 and S2 present. No murmurs, rubs, or gallops. -PULMONARY: Chest is clear to auscultation, no wheezing or crackles. Decreased air entry on both sides ABDOMEN: Soft, nontender, nondistended, normoactive bowel sounds. No palpable organomegaly. MUSCULOSKELETAL: No joint swelling or deformity. EXTREMITIES: No cyanosis, clubbing, or pedal edema. NEUROLOGICAL: Gross neurological examination did not reveal any focal deficits. SKIN: No rashes. no petechiae. - Labs CBC & Chem 7: 05/20/21 07:50 05/20/21 07:50 Labs: Abnormal Lab Results - Last 24 Hours (Table) 05/19/21 05/19/21 05/19/21 Range/Units 10:16 17:08 20:10 WBC (3.8-10.6) k/uL RBC (4.30-5.90) m/uL Hgb (13.0-17.5) gm/dL Hct (39.0-53.0) % RDW (11.5-15.5) % Plt Count (150-450) k/uL Neutrophils # (Manual) 19.70 H (1.3-7.7) k/uL Metamyelocytes # (Man) 0.73 H (0) k/uL Myelocytes # (Manual) 0.98 H (0) k/uL Promyelocytes # (Man) (0) k/uL Nucleated RBCs (0-0) /100 WBC Sodium (137-145) mmol/L Chloride (98-107) mmol/L Carbon Dioxide (22-30) mmol/L Creatinine (0.66-1.25) mg/dL Glucose (74-99) mg/dL POC Glucose (mg/dL) 172 H 169 H (75-99) mg/dL Calcium (8.4-10.2) mg/dL 05/20/21 05/20/21 05/20/21 Range/Units 07:37 07:50 07:50 WBC 22.7 H (3.8-10.6) k/uL RBC 2.82 L (4.30-5.90) m/uL Hgb 8.8 L (13.0-17.5) gm/dL Hct 26.8 L (39.0-53.0) % RDW 17.7 H (11.5-15.5) % Plt Count 800 H (150-450) k/uL Neutrophils # (Manual) 18.60 H (1.3-7.7) k/uL Metamyelocytes # (Man) 0.91 H (0) k/uL Myelocytes # (Manual) 0.91 H (0) k/uL Promyelocytes # (Man) 0.45 H (0) k/uL Nucleated RBCs 8 H (0-0) /100 WBC Sodium 130 L (137-145) mmol/L Chloride 95 L (98-107) mmol/L Carbon Dioxide 33 H (22-30) mmol/L Creatinine 0.46 L (0.66-1.25) mg/dL Glucose 273 H (74-99) mg/dL POC Glucose (mg/dL) 310 H (75-99) mg/dL Calcium 7.4 L (8.4-10.2) mg/dL 05/20/21 Range/Units 11:32 WBC (3.8-10.6) k/uL RBC (4.30-5.90) m/uL Hgb (13.0-17.5) gm/dL Hct (39.0-53.0) % RDW (11.5-15.5) % Plt Count (150-450) k/uL Neutrophils # (Manual) (1.3-7.7) k/uL Metamyelocytes # (Man) (0) k/uL Myelocytes # (Manual) (0) k/uL Promyelocytes # (Man) (0) k/uL Nucleated RBCs (0-0) /100 WBC Sodium (137-145) mmol/L Chloride (98-107) mmol/L Carbon Dioxide (22-30) mmol/L Creatinine (0.66-1.25) mg/dL Glucose (74-99) mg/dL POC Glucose (mg/dL) 275 H (75-99) mg/dL Calcium (8.4-10.2) mg/dL Assessment and Plan Assessment: Small cell lung cancer, advanced disease with right upper lobe lung mass Dehiscence of bilateral infiltrate mostly secondary to pneumonia with Ventritex metastasis cannot be ruled out Acute hypoxemic respiratory failure Generalized weakness and deconditioning Hyponatremia, SIADH is suspected but also secondary to hyperglycemia Acute COPD exacerbation Plan: This is a pleasant 70 years old male who presents with lung cancer, pneumonia and COPD Continue with antibiotics per ID team, currently on Zyvox and Zosyn. Continue with IV Solu-Medrol steroids and oxygen as needed Continue with gentle hydration Increase insulin Levemir 10 up to 15 units at bedtime Several consultants on the case with and ID team, pulmonary and oncology/hematology Labs and medication were reviewed.. Continue same treatment. Continue with symptomatic treatment. Resume home medication. Monitor lytes and vitals. DVT and GI prophylaxis. Further recommendationsas per clinical course of the patient DVT prophylaxis: Subcutaneous heparin GI Prophylaxis: Ppi PT/OT: Pending patient is refusing rehab Prognosis is guarded
[2021-05-20] MEDS ORDERED: INSULIN DETEMIR (LEVEMIR) 100 UNIT/ML SYR SQ ONE (13:00)
--- NOTE | 2021-05-20 13:14 | P.PN ---
Subjective Progress Note Date: 05/20/21 Principal diagnosis: SOB Objective - Vital Signs Vital signs: Vital Signs Temp 97.9 F 05/20/21 12:17 Pulse 104 H 05/20/21 12:17 Resp 16 05/20/21 12:17 BP 153/84 05/20/21 12:17 Pulse Ox 100 05/20/21 12:17 Intake & Output 05/19/21 05/20/21 05/20/21 18:59 06:59 18:59 Intake Total 1350 700 Output Total 2000 1800 Balance -650 -1100 Intake: IV 1350 700 Piperacillin-Tazobactam 3 100 100 .375 gm In Sodium Chloride 0.9% 100 ml @ 25 mls/hr IVPB Q8HR [facility] Rx# :[id number] Sodium Chloride 0.9% 1, 1000 600 000 ml @ 50 mls/hr IV . Q20H [facility] Rx#:[id number] Vancomycin 1,000 mg In 250 Sodium Chloride 0.9% 250 ml @ 125 mls/hr IVPB Q8HR [facility] Rx#:[id number] Output: Urine 2000 1800 Uretheral (Pantoja) 1000 1800 Other: Voiding Method External Catheter External Catheter - Exam High Flow Increased effort with minimal threshold to stimuli Alert Irreg Abd ndnt Ext BLE mild edema Crackles and audible congestion, mild increased effort - Labs CBC & Chem 7: 05/20/21 07:50 05/20/21 07:50 Labs: Abnormal Lab Results - Last 24 Hours (Table) 05/19/21 05/19/21 05/19/21 Range/Units 10:16 17:08 20:10 WBC (3.8-10.6) k/uL RBC (4.30-5.90) m/uL Hgb (13.0-17.5) gm/dL Hct (39.0-53.0) % RDW (11.5-15.5) % Plt Count (150-450) k/uL Neutrophils # (Manual) 19.70 H (1.3-7.7) k/uL Metamyelocytes # (Man) 0.73 H (0) k/uL Myelocytes # (Manual) 0.98 H (0) k/uL Promyelocytes # (Man) (0) k/uL Nucleated RBCs (0-0) /100 WBC Sodium (137-145) mmol/L Chloride (98-107) mmol/L Carbon Dioxide (22-30) mmol/L Creatinine (0.66-1.25) mg/dL Glucose (74-99) mg/dL POC Glucose (mg/dL) 172 H 169 H (75-99) mg/dL Calcium (8.4-10.2) mg/dL 05/20/21 05/20/21 05/20/21 Range/Units 07:37 07:50 07:50 WBC 22.7 H (3.8-10.6) k/uL RBC 2.82 L (4.30-5.90) m/uL Hgb 8.8 L (13.0-17.5) gm/dL Hct 26.8 L (39.0-53.0) % RDW 17.7 H (11.5-15.5) % Plt Count 800 H (150-450) k/uL Neutrophils # (Manual) 18.60 H (1.3-7.7) k/uL Metamyelocytes # (Man) 0.91 H (0) k/uL Myelocytes # (Manual) 0.91 H (0) k/uL Promyelocytes # (Man) 0.45 H (0) k/uL Nucleated RBCs 8 H (0-0) /100 WBC Sodium 130 L (137-145) mmol/L Chloride 95 L (98-107) mmol/L Carbon Dioxide 33 H (22-30) mmol/L Creatinine 0.46 L (0.66-1.25) mg/dL Glucose 273 H (74-99) mg/dL POC Glucose (mg/dL) 310 H (75-99) mg/dL Calcium 7.4 L (8.4-10.2) mg/dL 05/20/21 Range/Units 11:32 WBC (3.8-10.6) k/uL RBC (4.30-5.90) m/uL Hgb (13.0-17.5) gm/dL Hct (39.0-53.0) % RDW (11.5-15.5) % Plt Count (150-450) k/uL Neutrophils # (Manual) (1.3-7.7) k/uL Metamyelocytes # (Man) (0) k/uL Myelocytes # (Manual) (0) k/uL Promyelocytes # (Man) (0) k/uL Nucleated RBCs (0-0) /100 WBC Sodium (137-145) mmol/L Chloride (98-107) mmol/L Carbon Dioxide (22-30) mmol/L Creatinine (0.66-1.25) mg/dL Glucose (74-99) mg/dL POC Glucose (mg/dL) 275 H (75-99) mg/dL Calcium (8.4-10.2) mg/dL Assessment and Plan (1) Acute delirium Narrative/Plan: improving everyday Current Visit: Yes Status: Acute Priority: High Code(s): R41.0 - DISORIENTATION, UNSPECIFIED SNOMED Code(s): 8385928 (2) Pancytopenia Narrative/Plan: Secondary to chemotherapy Stable no intervention Current Visit: Yes Status: Acute Priority: Medium Code(s): D61.818 - OTHER PANCYTOPENIA SNOMED Code(s): 809023266 (3) Hyponatremia Current Visit: No Status: Acute Priority: High Code(s): E87.1 - HYPO- OSMOLALITY AND HYPONATREMIA SNOMED Code(s): 75519819 (4) Lung cancer Narrative/Plan: Status post cycle one of chemotherapy without neulasta Status post Carbo, CAN WORKER-16 and immune therapy Goal is to recover from hospitalization and restart treatment as soon as safe Current Visit: No Status: Acute Code(s): C34.90 - MALIGNANT NEOPLASM OF UNSP PART OF UNSP BRONCHUS OR LUNG SNOMED Code(s): 291534059 (5) SIADH (syndrome of inappropriate ADH production) Narrative/Plan: Nephrology Current Visit: No Status: Acute Priority: Medium Code(s): E22.2 - SYNDROME OF INAPPROPRIATE SECRETION OF ANTIDIURETIC HORMONE SNOMED Code(s): 49890161 Plan: Assessment and Plan Fever Afebrile today Continue Supportive Care Pulmonary continues to follow Await safe discharge from hospitalization with home PT likely Work on increasing strength and safety Plan to restart treatment after discharge. Dr. Bruno: I have completed the full history an physical and developed the above impression and plan, agree with dictation dictated as a scribe.
[2021-05-20 17:22] LABS: Glucose,Whole Blood 164 mg/dL (75-99)
[2021-05-20 19:51] LABS: Glucose,Whole Blood 155 mg/dL (75-99)
[2021-05-20] MEDS ORDERED: INSULIN DETEMIR (LEVEMIR) 100 UNIT/ML SYR SQ SCH (21:00)
[2021-05-21] MEDS: SODIUM CHLORIDE 0.9% 1,000 ML IV SCH (00:56)
[2021-05-21] MEDS: PIPERACILLIN-TAZOBACTAM 3.375 GM in SODIUM CHLORIDE 0.9% 100 ML IVPB SCH ×3 (00:59→17:46)
[2021-05-21] MEDS: methylPREDNISolone SOD SUCCI 125 MG/2 ML VIAL IV SCH ×4 (00:59→17:45)
[2021-05-21] MEDS: IPRATROPIUM-ALBUTEROL 3 ML NEB INHALATION SCH ×6 (05:52→23:38)
[2021-05-21 07:15] LABS: Glucose,Whole Blood 81 mg/dL (75-99)
[2021-05-21] MEDS: INSULIN ASPART (NovoLOG) 100 UNIT/ML VIAL SQ SCH ×4 (07:57→20:47)
[2021-05-21] MEDS: FOLIC ACID 1 MG TAB PO SCH (08:47)
[2021-05-21] MEDS: OLANZapine 2.5 MG TAB PO SCH (08:47)
[2021-05-21] MEDS: MAGNESIUM OXIDE 400 MG TAB PO SCH (08:47)
[2021-05-21] MEDS: PANTOPRAZOLE 40 MG TABLET PO SCH (08:47)
[2021-05-21] MEDS: LINEZOLID 600 MG TAB PO SCH ×2 (08:47→21:32)
[2021-05-21] MEDS: HEPARIN SODIUM,PORCINE/PF 5,000 UNIT/0.5 ML SYRINGE SQ SCH ×2 (08:47→21:32)
--- NOTE | 2021-05-21 10:25 | P.PN ---
Subjective Progress Note Date: 05/21/21 This is a 68-year-old male patient is known to me. 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 I establish his diagnosis through bronchoscopy and endobronchial ultrasound with no fine-needle aspirate. The patient also was having issues with hyponatremia with a sodium was dropping consistent with underlying SIADH. He was in the hospital on 05/01/2021 after the had a sodium level 113 and the patient had a witnessed seizure. He was in the intensive care unit. CAT scan of the brain was completed and it showed no evidence of any GREENSKEEPER metastases. His chest x-ray was still showing a right hilar mass and the patient was subjected to fluid restriction, hypertonic saline at patient was discharged home to be readmitted within 48 hours because of altered mentation. The patient was accordingly admitted again to the hospital. The patient was found to be febrile and the patient was treated for neutropenic fever. Noted the patient has already received a first session of systemic chemotherapy on 04/28/2021 and he completed that on 04/30/2021. MRI of the brain with and without contrast done on 03/27/2021 showed moderate atrophy. No evidence of any metastases. For now, the patient is on the oncology floor. He is being followed up by oncology, neurology and nephrology. The patient had a temperature of 102.6 and initially the patient was covered with a combination of antibiotics including cefepime and vancomycin. Subsequently, infectious disease discontinued the vancomycin and the patient is only on IV cefepime for now.. MRI of the lumbosacral spine showed degenerative disc disease and facet arthropathy and some nonspecific enhancing lumbosacral nerves that may be vascular but it is indeterminate. Note that the patient's fever has broken the patient has been afebrile over the past 24 hours. Nevertheless, he is slightly tachycardic. His white cell count during this current admission was as low as 1.2 and currently is up to 7.6. Hemoglobin is at 8.5. Platelet count is at 95. His d-dimer was at 19.6. BUN is at 14 with a creatinine of 0.3, and the sodium level of 133. The blood cultures been negative. The urine culture has been negative. The patient was given zarxio The patient is seen today 05/12/2021 in follow-up on the regular medical floor. He is currently resting in bed. Awake and alert in no acute distress. More oriented today compared to yesterday. He is maintaining O2 saturation in the low 90s on 6 L high flow nasal cannula. He's been afebrile. Hemodynamically stable. Dopplers of the lower extremities negative for DVT. CT angiogram ruled out pulmonary embolism. There is extensive pulmonary infiltrates. Massive mediastinal bronchial adenopathy consistent with tumor. Pulmonary infiltrates significantly increased compared to recent PET scan on 04/16/2021. Could represent lymphangitic metastatic disease in the left lung. Right upper lobe masslike infiltrate without change. MRI of the cervical spine revealed stable appearance of the cervical spine with reversal of the normal cervical lordosis, disc desiccation with disc bulging and multilevel central stenosis. No enhancing lesions of the cervical spine. Right supra-clavicular adenopathy. Blood cultures reveal no growth to date. Urine culture no growth. D-dimer 19.6. Sodium 134. Potassium 3.7. Bicarb 24. BUN 15. Creatinine 0.4. In fluenza screen negative. RSV negative. COVID-19 screen negative. He is continued on heparin for DVT prophylaxis. Antibiotics in the form of cefepime. Remains on dexamethasone 1 mg daily. The patient is seen today 05/13/2021 in follow-up on the regular medical floor. He is resting comfortably in bed. Awake and alert in no acute distress. More oriented today compared to yesterday. He denies any worsening shortness of breath, cough or congestion. The cultures reveal no growth. Urine culture revealed no growth. Follow-up blood cultures revealed no growth. White count 17.7. Hemoglobin 8.8. Platelets 152. Sodium 137. Potassium 3.5. BUN 17. Creatinine 0.3. He is continued on cefepime, dexamethasone. Heparin for DVT prophylaxis. The patient is seen today 05/14/2021 in follow-up on the regular medical floor. He is currently resting in bed. Awake and alert. Some issues with oxygen desaturations he was found with his oxygen off at one point with O2 saturation at 56%. He is currently at 92% on 6 L high flow nasal cannula. Chest x-ray reveals continued worsening left lung diffuse edema/infiltrates. Persistent right upper lobe lung nodule. Blood cultures revealing no growth. Urine culture no growth. Follow-up blood culture no growth. White count 22.7. Hemoglobin 8.7. Sodium 134. Potassium 3.6. Creatinine 0.3. Urine osmolality 960. He is continued on cefepime. The patient is seen today 05/18/2021 in follow-up in the intensive care unit. He is currently resting fairly comfortably in bed. Awake and alert in no acute distress. He remains on AirVo high flow oxygen at 60 L and 70% FiO2. Normal saline at 50 MLS per hour. No worsening shortness of breath, cough or congestion. Chest x-ray continues to show left lung diffuse edema/infiltrates on background chronic emphysema. Known right upper lung neoplasm. Left lung findings minimally improved. Blood cultures revealed no growth. Urine culture reveals no growth. White count 24.2. Hemoglobin 8.2. Platelets 578. Sodium 134. Potassium 3.8. BUN 21. Creatinine 0.4. He is continued on DuoNeb inhalations, IV Solu-Medrol, vancomycin and Zosyn. The patient is seen today 05/20/2021 in follow-up on the regular medical floor. He is currently sitting up in bed. Awake and alert in no acute distress. He is currently on 6 L high flow nasal cannula with O2 saturations in the upper 90s. His been afebrile. Hemodynamically stable. Chest x-ray shows persistent left lung infiltrate. Right apical nodularity is/infiltrate. Blood and urine cultures revealed no growth. White count 24.5. Hemoglobin 8.8. Platelet count 800,000. Sodium 130. Potassium 3.6. Bicarb 33. BUN 12. Creatinine 0.46. Glucose 273. He is continued on DuoNeb inhalations, IV Solu-Medrol and antibiotics in the form of Zosyn. Heparin for DVT prophylaxis. The patient is seen today 05/21/2021 in follow-up on the regular medical floor. He remains awake and alert and oriented 3. Sitting up in bed. Denies any worsening shortness of breath, cough or congestion. He is now down to 3 L high flow nasal cannula with O2 saturations in the 90s. Blood cultures had revealed no growth. Urine culture revealed no growth. Blood glucose 81. He is continued on DuoNeb inhalations, IV Solu-Medrol, antibiotics in the form of Zosyn and Zyvox. Heparin for DVT prophylaxis. Levemir and NovoLog for blood sugar coverage. Objective - Vital Signs Vital signs: Vital Signs Temp 97.5 F L 05/21/21 07:48 Pulse 81 05/21/21 09:39 Resp 14 05/21/21 09:39 BP 162/80 05/21/21 07:48 Pulse Ox 93 L 05/21/21 07:48 Intake & Output 05/20/21 05/21/21 05/21/21 18:59 06:59 18:59 Intake Total 480 230 Output Total 1000 3000 1750 Balance -520 -2770 -1750 Intake: IV 480 Sodium Chloride 0.9% 1, 480 000 ml @ 50 mls/hr IV . Q20H [facility] Rx#:[id number] Oral 230 Output: Urine 1000 3000 1750 Uretheral (Pantoja) 1000 2000 Other: Voiding Method Indwelling Catheter Indwelling Catheter Indwelling Catheter # Voids 0 - Exam GENERAL EXAM: Alert, pleasant, frail 70-year-old male patient, on 3 L high flow nasal cannula, in no acute distress HEAD: Normocephalic/atraumatic. EYES: Normal reaction of pupils, equal size. Conjunctiva pink, sclera white. NOSE: Clear with pink turbinates. THROAT: No erythema or exudates. NECK: No masses, no JVD, no thyroid enlargement, no adenopathy. CHEST: No chest wall deformity. Symmetrical expansion. LUNGS: Equal air entry with bilateral scattered rhonchi CVS: Regular rate and rhythm, normal S1 and S2, no gallops, no murmurs, no rubs ABDOMEN: Soft, nontender. No hepatosplenomegaly, normal bowel sounds, no guarding or rigidity. EXTREMITIES: No clubbing, no edema, no cyanosis, 2+ pulses and upper and lower extremities. MUSCULOSKELETAL: Muscle strength and tone normal. SPINE: No scoliosis or deformity SKIN: No rashes CENTRAL NERVOUS SYSTEM: No focal deficits, tone is normal in all 4 extremities. No neck stiffness PSYCHIATRIC: Alert and oriented -3. Appropriate affect. Intact judgment and insight. - Labs CBC & Chem 7: 05/20/21 07:50 05/20/21 07:50 Labs: Abnormal Lab Results - Last 24 Hours (Table) 05/20/21 05/20/21 05/20/21 Range/Units 07:50 11:32 17:20 WBC 22.7 H (3.8-10.6) k/uL Neutrophils # (Manual) 18.60 H (1.3-7.7) k/uL Metamyelocytes # (Man) 0.91 H (0) k/uL Myelocytes # (Manual) 0.91 H (0) k/uL Promyelocytes # (Man) 0.45 H (0) k/uL Nucleated RBCs 8 H (0-0) /100 WBC POC Glucose (mg/dL) 275 H 164 H (75-99) mg/dL 05/20/21 Range/Units 19:48 WBC (3.8-10.6) k/uL Neutrophils # (Manual) (1.3-7.7) k/uL Metamyelocytes # (Man) (0) k/uL Myelocytes # (Manual) (0) k/uL Promyelocytes # (Man) (0) k/uL Nucleated RBCs (0-0) /100 WBC POC Glucose (mg/dL) 155 H (75-99) mg/dL Assessment and Plan Assessment: 1 Small cell lung cancer, with early SVC syndrome, status post first cycle of systemic chemotherapy using carboplatin, CAUSTIC LIQUOR MAKER-16 and Tecentriq 2 Neutropenic fever, improving, currently afebrile 3 Acute febrile illness, Suspect secondary to underlying pneumonia more so on the left lung him a currently on Zosyn and Zyvox. Suspect pneumonia versus lymphangitic carcinomatosis 4 Acute hypoxic respiratory failure secondary to sepsis, underlying lung cancer him a currently on AirVo high flow oxygen 5 Episodic SIADH, sodium level is adequate for now 6 Altered mentation secondary to sepsis, improving 7 Hypertension 8 Osteoarthritis 9 Latent TB back in 1996 Plan: The patient was seen and evaluated Chest x-ray and labs reviewed Continued on oxygen now at 3 L high flow nasal cannula Continue to titrate down the FiO2 as tolerated Continue Zosyn and Zyvox, bronchodilators, IV Solu-Medrol Follow-up chest x-ray in a.m. We will continue to follow I have personally seen and examined the patient, performed the documentation and the assessment and plan as written. Number of minutes spent on the visit: 10.
[2021-05-21 11:28] LABS: Glucose,Whole Blood 153 mg/dL (75-99)
[2021-05-21 14:55] LABS: Magnesium 2.5 mg/dL (1.6-2.3); Potassium 4.3 mmol/L (3.5-5.1)
[2021-05-21 17:13] LABS: Glucose,Whole Blood 335 mg/dL (75-99)
--- NOTE | 2021-05-21 18:10 | P.PN ---
Subjective This is a pleasant 70-year-old male who was recently admitted with altered mental status and per the acute delirium. Patient was recently just discharged for severe hyponatremia. Patient was evaluated by physical therapy recommending subacute rehab although patient refused at that time and wanted to go home and Homecare was being arranged. Per patient continued to be confused and more altered and so was brought back to the hospital for further evaluation. Neurology and oncology been consulted and pending. Will also consult nephrology as patient sodium continues to be low and is currently 127. Patient does have an extensive past medical history of hypertension, osteoarthritis, EtOH abuse, and also small cell lung carcinoma and is currently receiving chemo immunotherapy treatments. Patient has been on high-dose steroids with a taper of Decadron per oncology services. Patient also recently had further workup with a bronchoscopy with biopsy in March that confirmed the small cell lung carcinoma and patient also underwent PET scan and findings were extensive stage IV disease. On admission to the ER labs were found to be a WBC of 1.3, hemoglobin 10.0, platelets were 100, sodium was 126, potassium 4.7, BUN 23, creatinine 0.33, magnesium 1.8, urinalysis is negative. Patient had a CT of the brain without contrast showing no evidence of intracranial hemorrhage mass effect or midline shift the white matter is grossly preserved and there is no acute intracranial abnormality noted. Patient was admitted for further evaluation and will also have PT/OT therapy evaluate the patient and will consult case management/social media intern to evaluate for ECF. Consultations currently pending. 05/10/2021 Patient is seen and evaluated in follow-up today currently sitting up in the chair. Patient being followed closely by nephrology. Patient continues with confusion at times and recommend PT/OT evaluation for possible ECF. Oncology also following along with neurology and LS-spine MRI is ordered and pending at this time. Patient continues with low-grade fevers and is maintained on IV antibiotics and will continue. Infectious disease was consulted and pending. Patient received a dose of Samsca yesterday and sodium improved at 131 today and recommend continue with fluid restrictions and will repeat labs. 05/17/2021 Patient is seen in follow up and continues in the ICU with pulmonary, oncology, and ID following. Patient is continued on Zosyn and Vanco and will continue. WBC trending down and is 17 today. Patient is afebrile. Patient continues on high flow airvo with settings of 60/85 abd continue to wean FI02 as tolerated. Encouraged increased activity as tolerated and continue with PT/OT. Oncology following and current treatment on hold until respiratory status improves. Patient also continued on IV steroids and breathing inhalational treatments and will continue. 05/18/2021 Patient is seen and evaluated in follow-up continues to be closely monitored in the ICU with multiple medical consultations following. WBC elevated at 24.2 hemoglobin is stable at 8.2. Sodium is stable at 134 with nephrology following. Recommend continue with fluid restrictions. Patient continues on high flow airvo 60/60 and slowly weaning as tolerated. Patient to continue with antibiotic therapy with infectious disease following closely as well. Per nursing staff patient was having some urinary retention and straight catheter over 1100 output. Continue to monitor and bladder scan as needed and is c ontinuing to retain may insert indwelling Pantoja catheter. Oncology, pulmonary, infectious disease following. Chest x-ray today shows continued left lung diffuse edema and/or infiltrates on background chronic emphysematous change in known right upper lung neoplasm left lung findings minimally improved from previous x-ray. Follow-up CT and MRI of the brain are negative with oncology following. Recommend holding current oncology treatment until improvement in current respiratory status. Continue to wean FiO2 as tolerated 05/19/2021 Patient is seen today and there is a long-time fellow coworker and friend visiting at the bedside. Patient continues currently on 8L HF NC and tolerating and needs continuous reminder to leave oxygen tubing on. Patient continues to desat quickly. Patient sodium stable at 133. Multiple medical consultations following. Patient in good spirits. Eating and tolerating diet. Blood sugars mildly elevated and will adjust sliding scale. WBC remains elevated. Patient is afebrile. Patient to continue on IV antibiotics and ID following. Patient denies chest pain or shortness of breath. Patient less winded during conversation. PT/OT daily. Encourage increase activity. Subjective: 05/20/2021 This is a pleasant 70 years old male with evidence of right upper lung mass secondary to advanced small cell lung cancer with hilar lymphadenopathy and extensive bilateral infiltrate, more on the left side suspicious for pneumonia and possible lymphangitic metastases more on the left side Patient is awake and alert but he still have difficulty breathing with exertion more than with rest, he is able to talk with short sentences., Oxygen requirement improvement from 10 down to 6 L per minute today.leukocytosis of 22,000, hemoglobin 8.8, sodium 1:30, glucose 275-300+ Patient currently kept on Zyvox, Zosyn, Solu-Medrol 60 mg of normal saline 50 mL/h. I discussed the case with caseworker intake/manager social media Jhonatan, patient does not want to go to rehab and he is a from [place] and is going to need oxygen upon discharge. 05/21/2021 Patient breathing significantly improved and currently he is on room air, he does not qualify for home oxygen. He denies any other symptoms and looks like medically his improvement and he can be discharged as he is hemodynamically stable and symptoms improved. In the morning he agreed for rehab and then change his mind to go home. However it looks like he change his mind again and he may consider it. Patient is medically stable for discharge pending placement related to his generalized weakness. Discontinue IV Solu-Medrol and start prednisone taper. Discontinue insulin and start metformin 250 twice a day, his hemoglobin A1c high 7.4% on admission. Discussed the case with infectious disease, he will be discharged on 7 days of Zyvox and Avelox Objective - Vital Signs Vital signs: Vital Signs Temp 98.5 F 05/21/21 15:55 Pulse 98 05/21/21 15:56 Resp 18 05/21/21 15:55 BP 145/72 05/21/21 15:55 Pulse Ox 95 05/21/21 15:55 Intake & Output 05/20/21 05/21/21 05/21/21 18:59 06:59 18:59 Intake Total 480 230 Output Total 1000 3000 2200 Balance -520 -2770 -2200 Intake: IV 480 Sodium Chloride 0.9% 1, 480 000 ml @ 50 mls/hr IV . Q20H [facility] Rx#:[id number] Oral 230 Output: Urine 1000 3000 2200 Uretheral (Pantoja) 1000 2000 Other: Voiding Method Indwelling Catheter Indwelling Catheter Indwelling Catheter # Voids 0 - Exam GENERAL: The patient is alert and oriented x3, not in any acute distress. Well developed, well nourished. HEENT: Pupils are round and equally reacting to light. EOMI. No scleral icterus. No conjunctival pallor. Normocephalic, atraumatic. No pharyngeal erythema. No thyromegaly. CARDIOVASCULAR: S1 and S2 present. No murmurs, rubs, or gallops. -PULMONARY: Chest is clear to auscultation, no wheezing or crackles. Decreased air entry on both sides ABDOMEN: Soft, nontender, nondistended, normoactive bowel sounds. No palpable organomegaly. MUSCULOSKELETAL: No joint swelling or deformity. EXTREMITIES: No cyanosis, clubbing, or pedal edema. NEUROLOGICAL: Gross neurological examination did not reveal any focal deficits. SKIN: No rashes. no petechiae. - Labs CBC & Chem 7: 05/20/21 07:50 05/21/21 13:56 Labs: Abnormal Lab Results - Last 24 Hours (Table) 05/20/21 05/20/21 05/21/21 Range/Units 17:20 19:48 11:25 POC Glucose (mg/dL) 164 H 155 H 153 H (75-99) mg/dL Magnesium (1.6-2.3) mg/dL 05/21/21 Range/Units 13:56 POC Glucose (mg/dL) (75-99) mg/dL Magnesium 2.5 H (1.6-2.3) mg/dL Assessment and Plan Assessment: Small cell lung cancer, advanced disease with right upper lobe lung mass Dehiscence of bilateral infiltrate mostly secondary to pneumonia with Ventritex metastasis cannot be ruled out Acute hypoxemic respiratory failure Generalized weakness and deconditioning Hyponatremia, SIADH is suspected but also secondary to hyperglycemia Acute COPD exacerbation Plan: This is a pleasant 70 years old male who presents with lung cancer, pneumonia and COPD Continue with antibiotics per ID team, currently on Zyvox and Zosyn. DC on oral antibiotic Sutures steroids to tapered prednisone change Levemir to metformin 250 twice a day Several consultants on the case with and ID team, pulmonary and oncology/hem atology Labs and medication were reviewed.. Continue same treatment. Continue with symptomatic treatment. Resume home medication. Monitor lytes and vitals. DVT and GI prophylaxis. Further recommendationsas per clinical course of the patient DVT prophylaxis: Subcutaneous heparin GI Prophylaxis: Ppi PT/OT: Patient is considering rehab Patient medically stable for discharge pending placement
--- NOTE | 2021-05-21 19:34 | P.PN ---
Subjective Progress Note Date: 05/21/21 Principal diagnosis: SOB Sitting up in chair, mathur draining. Sister and family at bedside and concerned for discharge but do not want him to go to ECF as feel he may get worse in "[facility]" setting. Discussed with Dr. Gayle and IPR would be best option and help to increase strength to prepare for restarting paliiaiative chemo. Objective - Vital Signs Vital signs: Vital Signs Temp 97.5 F L 05/21/21 07:48 Pulse 81 05/21/21 09:39 Resp 14 05/21/21 09:39 BP 162/80 05/21/21 07:48 Pulse Ox 93 L 05/21/21 07:48 Intake & Output 05/20/21 05/21/21 05/21/21 18:59 06:59 18:59 Intake Total 480 230 Output Total 1000 3000 1750 Balance -520 -2770 -1750 Intake: IV 480 Sodium Chloride 0.9% 1, 480 000 ml @ 50 mls/hr IV . Q20H [facility] Rx#:[id number] Oral 230 Output: Urine 1000 3000 1750 Uretheral (Mathur) 1000 2000 Other: Voiding Method Indwelling Catheter Indwelling Catheter Indwelling Catheter # Voids 0 - Exam High Flow Increased effort with minimal threshold to stimuli Alert Irreg Abd ndnt Ext BLE mild edema Crackles and audible congestion, mild increased effort - Labs CBC & Chem 7: 05/20/21 07:50 05/21/21 13:56 Labs: Abnormal Lab Results - Last 24 Hours (Table) 05/20/21 05/20/21 05/21/21 Range/Units 17:20 19:48 11:25 POC Glucose (mg/dL) 164 H 155 H 153 H (75-99) mg/dL Assessment and Plan (1) Acute delirium Narrative/Plan: improving everyday Current Visit: Yes Status: Acute Priority: High Code(s): R41.0 - DISORIENTATION, UNSPECIFIED SNOMED Code(s): 4669931 (2) Pancytopenia Narrative/Plan: Secondary to chemotherapy Stable no intervention Current Visit: Yes Status: Acute Priority: Medium Code(s): D61.818 - OTHER PANCYTOPENIA SNOMED Code(s): 651641314 (3) Hyponatremia Current Visit: No Status: Acute Priority: High Code(s): E87.1 - HYPO- OSMOLALITY AND HYPONATREMIA SNOMED Code(s): 88300864 (4) Lung cancer Narrative/Plan: Status post cycle one of chemotherapy without neulasta Status post Carbo, [employer]-16 and immune therapy Goal is to recover from hospitalization and restart treatment as soon as safe Current Visit: No Status: Acute Code(s): C34.90 - MALIGNANT NEOPLASM OF UNSP PART OF UNSP BRONCHUS OR LUNG SNOMED Code(s): 903068350 (5) SIADH (syndrome of inappropriate ADH production) Narrative/Plan: Nephrology Current Visit: No Status: Acute Priority: Medium Code(s): E22.2 - SYNDROME OF INAPPROPRIATE SECRETION OF ANTIDIURETIC HORMONE SNOMED Code(s): 37547112 Plan: Assessment and Plan Fever Afebrile today Continue Supportive Care Pulmonary continues to follow Await safe discharge from hospitalization with home PT likely Work on increasing strength and safety Plan to restart treatment after discharge. His cancer is still rather treatable per Dr. Dias as long as we can increase performance to tolerate. Hoping for IPR evaluation for discharge.
[2021-05-21 20:43] LABS: Glucose,Whole Blood 115 mg/dL (75-99)
[2021-05-21] MEDS: metFORMIN 500 MG TAB PO SCH (21:32)
--- NOTE | 2021-05-21 22:39 | P.PN ---
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 Patient did have a CT and a gram of the chest completed on 05/11/2021 with evidence of right upper lobe consolidation any increasing infiltrate On today's evaluation that is 05/20/2021 the patient remains to be afebrile, the patient is breathing comfortably on 5 L nasal cannula oxygen , patient denies chest pain, the patient did have a cough but not bringing up any sputum , the patient denies abdominal pain and no diarrhea with antibiotic therapy Objective - Vital Signs Vital signs: Vital Signs Temp 97.7 F 05/20/21 08:59 Pulse 88 05/20/21 11:23 Resp 18 05/20/21 09:36 BP 154/82 05/20/21 08:59 Pulse Ox 100 05/20/21 11:12 Intake & Output 05/19/21 05/20/21 05/20/21 18:59 06:59 18:59 Intake Total 1350 700 Output Total 2000 1800 Balance -650 -1100 Intake: IV 1350 700 Piperacillin-Tazobactam 3 100 100 .375 gm In Sodium Chloride 0.9% 100 ml @ 25 mls/hr IVPB Q8HR [facility] Rx# :[id number] Sodium Chloride 0.9% 1, 1000 600 000 ml @ 50 mls/hr IV . Q20H [facility] Rx#:[id number] Vancomycin 1,000 mg In 250 Sodium Chloride 0.9% 250 ml @ 125 mls/hr IVPB Q8HR [facility] Rx#:[id number] Output: Urine 2000 1800 Uretheral (Pantoja) 1000 1800 Other: Voiding Method External Catheter External Catheter - Exam GENERAL DESCRIPTION: An elderly male lying in bed in no distress RESPIRATORY SYSTEM: Unlabored breathing , decreased breath sounds at bases HEART: S1 S2 regular rate and rhythm , ABDOMEN: Soft , no tenderness EXTREMITIES: No edema feet - Labs CBC & Chem 7: 05/20/21 07:50 05/21/21 13:56 Labs: Abnormal Lab Results - Last 24 Hours (Table) 05/19/21 05/19/21 05/19/21 Range/Units 10:16 17:08 20:10 WBC (3.8-10.6) k/uL RBC (4.30-5.90) m/uL Hgb (13.0-17.5) gm/dL Hct (39.0-53.0) % RDW (11.5-15.5) % Plt Count (150-450) k/uL Neutrophils # (Manual) 19.70 H (1.3-7.7) k/uL Metamyelocytes # (Man) 0.73 H (0) k/uL Myelocytes # (Manual) 0.98 H (0) k/uL Sodium (137-145) mmol/L Chloride (98-107) mmol/L Carbon Dioxide (22-30) mmol/L Creatinine (0.66-1.25) mg/dL Glucose (74-99) mg/dL POC Glucose (mg/dL) 172 H 169 H (75-99) mg/dL Calcium (8.4-10.2) mg/dL 05/20/21 05/20/21 05/20/21 Range/Units 07:37 07:50 07:50 WBC 24.5 H (3.8-10.6) k/uL RBC 2.82 L (4.30-5.90) m/uL Hgb 8.8 L (13.0-17.5) gm/dL Hct 26.8 L (39.0-53.0) % RDW 17.7 H (11.5-15.5) % Plt Count 800 H (150-450) k/uL Neutrophils # (Manual) (1.3-7.7) k/uL Metamyelocytes # (Man) (0) k/uL Myelocytes # (Manual) (0) k/uL Sodium 130 L (137-145) mmol/L Chloride 95 L (98-107) mmol/L Carbon Dioxide 33 H (22-30) mmol/L Creatinine 0.46 L (0.66-1.25) mg/dL Glucose 273 H (74-99) mg/dL POC Glucose (mg/dL) 310 H (75-99) mg/dL Calcium 7.4 L (8.4-10.2) mg/dL 05/20/21 Range/Units 11:32 WBC (3.8-10.6) k/uL RBC (4.30-5.90) m/uL Hgb (13.0-17.5) gm/dL Hct (39.0-53.0) % RDW (11.5-15.5) % Plt Count (150-450) k/uL Neutrophils # (Manual) (1.3-7.7) k/uL Metamyelocytes # (Man) (0) k/uL Myelocytes # (Manual) (0) k/uL Sodium (137-145) mmol/L Chloride (98-107) mmol/L Carbon Dioxide (22-30) mmol/L Creatinine (0.66-1.25) mg/dL Glucose (74-99) mg/dL POC Glucose (mg/dL) 275 H (75-99) mg/dL Calcium (8.4-10.2) mg/dL Assessment and Plan (1) Fever Current Visit: Yes Status: Acute Code(s): R50.9 - FEVER, UNSPECIFIED SNOMED Code(s): 620014738 Plan: 1patient with a stage IV small cell cancer right upper lobe this patient has been started on chemotherapy presented to the hospital with some mental status changes and has developed a fever source is likely right upper lobe pneumonia as no other obvious focus of infection urine has been negative abdominal soft on clinical examination no evidence of any cellulitis or joint swelling. 2 patient seemed to have shown overall clinical improvement, patient to to continue zosyn and Zyvox finishing therapy with oral antibiotics, family at the bedside questions were answered Time with Patient: Less than 30
--- NOTE | 2021-05-21 22:40 | P.PN ---
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 Patient did have a CT and a gram of the chest completed on 05/11/2021 with evidence of right upper lobe consolidation any increasing infiltrate On today's evaluation that is 05/21/2021 the patient denies any fever or chills, the patient is breathing comfortably and is down to 3 L nasal cannula oxygen , patient denies chest pain, the patient cough is decreased in intensity, not bringing up any sputum , the patient denies abdominal pain and no diarrhea with antibiotic therapy Objective - Vital Signs Vital signs: Vital Signs Temp 97.5 F L 05/21/21 07:48 Pulse 81 05/21/21 09:39 Resp 14 05/21/21 09:39 BP 162/80 05/21/21 07:48 Pulse Ox 93 L 05/21/21 07:48 Intake & Output 05/20/21 05/21/21 05/21/21 18:59 06:59 18:59 Intake Total 480 230 Output Total 1000 3000 1750 Balance -520 -2863 -1750 Intake: IV 480 Sodium Chloride 0.9% 1, 480 000 ml @ 50 mls/hr IV . Q20H [facility] Rx#:[id number] Oral 230 Output: Urine 1000 3000 1750 Uretheral (Pantoja) 1000 2000 Other: Voiding Method Indwelling Catheter Indwelling Catheter Indwelling Catheter # Voids 0 - Exam GENERAL DESCRIPTION: An elderly male lying in bed in no distress RESPIRATORY SYSTEM: Unlabored breathing , decreased breath sounds at bases HEART: S1 S2 regular rate and rhythm , ABDOMEN: Soft , no tenderness EXTREMITIES: No edema feet - Labs CBC & Chem 7: 05/20/21 07:50 05/21/21 13:56 Labs: Abnormal Lab Results - Last 24 Hours (Table) 05/20/21 05/20/21 05/21/21 Range/Units 17:20 19:48 11:25 POC Glucose (mg/dL) 164 H 155 H 153 H (75-99) mg/dL Assessment and Plan (1) Fever Current Visit: Yes Status: Acute Code(s): R50.9 - FEVER, UNSPECIFIED SNOMED Code(s): 032454681 Plan: 1patient with a stage IV small cell cancer right upper lobe this patient has been started on chemotherapy presented to the hospital with some mental status changes and has developed a fever source is likely right upper lobe pneumonia as no other obvious focus of infection urine has been negative abdominal soft on clinical examination no evidence of any cellulitis or joint swelling. 2 patient continued to show slow clinical improvement, patient to continue zosyn and Zyvox while inpatient and finishing therapy with oral Avelox and Zyvox 7 days on discharge and discuss with the admitting physician
[2021-05-22] MEDS: PIPERACILLIN-TAZOBACTAM 3.375 GM in SODIUM CHLORIDE 0.9% 100 ML IVPB SCH ×4 (00:08→23:48)
[2021-05-22] MEDS: IPRATROPIUM-ALBUTEROL 3 ML NEB INHALATION SCH ×5 (03:40→19:02)
[2021-05-22 07:12] LABS: Glucose,Whole Blood 130 mg/dL (75-99)
--- NOTE | 2021-05-22 07:16 | XR ---
EXAMINATION TYPE: XR chest 1V portable DATE OF EXAM: 05/22/2021 6:33 AM COMPARISON:Chest radiograph from two days prior. CT 05/11/2021 TECHNIQUE: XR chest 1V portable Frontal view of the chest. CLINICAL INDICATION:Male, 70 years old with history of pneumonia; FINDINGS: Lungs/Pleura: Persistent opacities throughout the left lung and right apex. There is no evidence of p leural effusion, focal consolidation, or pneumothorax. Pulmonary vascularity: Unremarkable. Heart/mediastinum: Cardiomediastinal silhouette is unremarkable. Musculoskeletal: No acute osseous pathology. Other findings: None IMPRESSION: Similar multifocal airspace opacities most pronounced in the left and right apex.
[2021-05-22] MEDS: PANTOPRAZOLE 40 MG TABLET PO SCH (08:26)
[2021-05-22] MEDS: MAGNESIUM OXIDE 400 MG TAB PO SCH (08:26)
[2021-05-22] MEDS: LINEZOLID 600 MG TAB PO SCH ×2 (08:26→21:14)
[2021-05-22] MEDS: predniSONE 20 MG TAB PO SCH (08:26)
[2021-05-22] MEDS: metFORMIN 500 MG TAB PO SCH ×2 (08:26→17:50)
[2021-05-22] MEDS: FOLIC ACID 1 MG TAB PO SCH (08:26)
[2021-05-22] MEDS: HEPARIN SODIUM,PORCINE/PF 5,000 UNIT/0.5 ML SYRINGE SQ SCH ×2 (08:26→21:14)
[2021-05-22] MEDS: INSULIN ASPART (NovoLOG) 100 UNIT/ML VIAL SQ SCH ×4 (08:27→21:11)
--- NOTE | 2021-05-22 11:11 | P.PN ---
Subjective Progress Note Date: 05/22/21 Principal diagnosis: Acute on chronic hypoxic respiratory failure with small cell lung cancer and SVC syndrome and acute neutropenic fever. As well as left sided pneumonia, in imm unocompromised patient. Likely gram-negative pneumonia This is a 68-year-old male patient is known to me. 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 I establish his diagnosis through bronchoscopy and endobronchial ultrasound with no fine-needle aspirate. The patient also was having issues with hyponatremia with a sodium was dropping consistent with underlying SIADH. He was in the hospital on 05/01/2021 after the had a sodium level 113 and the patient had a witnessed seizure. He was in the intensive care unit. CAT scan of the brain was completed and it showed no evidence of any [employer] metastases. His chest x-ray was still showing a right hilar mass and the patient was subjected to fluid restriction, hypertonic saline at patient was discharged home to be readmitted within 48 hours because of altered mentation. The patient was accordingly admitted again to the hospital. The patient was found to be febrile and the patient was treated for neutropenic fever. Noted the patient has already received a first session of systemic chemotherapy on 04/28/2021 and he completed that on 04/30/2021. MRI of the brain with and without contrast done on 03/27/2021 showed moderate atrophy. No evidence of any metastases. For now, the patient is on the oncology floor. He is being followed up by oncology, neurology and nephrology. The patient had a temperature of 102.6 and initially the patient was covered with a combination of antibiotics including cefepime and vancomycin. Subsequently, infectious disease discontinued the vancomycin and the patient is only on IV cefepime for now.. MRI of the lumbosacral spine showed degenerative disc disease and facet arthropathy and some nonspecific enhancing lumbosacral nerves that may be vascular but it is indeterminate. Note that the patient's fever has broken the patient has been afebrile over the past 24 hours. Nevertheless, he is slightly tachycardic. His white cell count during this current admission was as low as 1.2 and currently is up to 7.6. Hemoglobin is at 8.5. Platelet count is at 95. His d-dimer was at 19.6. BUN is at 14 with a creatinine of 0.3, and the sodium level of 133. The blood cultures been negative. The urine culture has been negative. The patient was given zarxio The patient is seen today 05/12/2021 in follow-up on the regular medical floor. He is currently resting in bed. Awake and alert in no acute distress. More oriented today compared to yesterday. He is maintaining O2 saturation in the low 90s on 6 L high flow nasal cannula. He's been afebrile. Hemodynamically stable. Dopplers of the lower extremities negative for DVT. CT angiogram ruled out pulmonary embolism. There is extensive pulmonary infiltrates. Massive mediastinal bronchial adenopathy consistent with tumor. Pulmonary infiltrates significantly increased compared to recent PET scan on 04/16/2021. Could represent lymphangitic metastatic disease in the left lung. Right upper lobe masslike infiltrate without change. MRI of the cervical spine revealed stable appearance of the cervical spine with reversal of the normal cervical lordosis, disc desiccation with disc bulging and multilevel central stenosis. No enhancing lesions of the cervical spine. Right supra-clavicular adenopathy. Blood cultures reveal no growth to date. Urine culture no growth. D-dimer 19.6. Sodium 134. Potassium 3.7. Bicarb 24. BUN 15. Creatinine 0.4. Influenza screen negative. RSV negative. COVID-19 screen negative. He is continued on heparin for DVT prophylaxis. Antibiotics in the form of cefepime. Remains on dexamethasone 1 mg daily. The patient is seen today 05/13/2021 in follow-up on the regular medical floor. He is resting comfortably in bed. Awake and alert in no acute distress. More oriented today compared to yesterday. He denies any worsening shortness of breath, cough or congestion. The cultures reveal no growth. Urine culture revealed no growth. Follow-up blood cultures revealed no growth. White count 17.7. Hemoglobin 8.8. Platelets 152. Sodium 137. Potassium 3.5. BUN 17. Creatinine 0.3. He is continued on cefepime, dexamethasone. Heparin for DVT prophylaxis. The patient is seen today 05/14/2021 in follow-up on the regular medical floor. He is currently resting in bed. Awake and alert. Some issues with oxygen desaturations he was found with his oxygen off at one point with O2 saturation at 56%. He is currently at 92% on 6 L high flow nasal cannula. Chest x-ray reveals continued worsening left lung diffuse edema/infiltrates. Persistent right upper lobe lung nodule. Blood cultures revealing no growth. Urine culture no growth. Follow-up blood culture no growth. White count 22.7. Hemoglobin 8.7. Sodium 134. Potassium 3.6. Creatinine 0.3. Urine osmolality 960. He is continued on cefepime. The patient is seen today 05/18/2021 in follow-up in the intensive care unit. He is currently resting fairly comfortably in bed. Awake and alert in no acute distress. He remains on AirVo high flow oxygen at 60 L and 70% FiO2. Normal saline at 50 MLS per hour. No worsening shortness of breath, cough or congestion. Chest x-ray continues to show left lung diffuse edema/infiltrates on background chronic emphysema. Known right upper lung neoplasm. Left lung findings minimally improved. Blood cultures revealed no growth. Urine culture reveals no growth. White count 24.2. Hemoglobin 8.2. Platelets 578. Sodium 134. Potassium 3.8. BUN 21. Creatinine 0.4. He is continued on DuoNeb inhalations, IV Solu-Medrol, vancomycin and Zosyn. The patient is seen today 05/20/2021 in follow-up on the regular medical floor. He is currently sitting up in bed. Awake and alert in no acute distress. He is currently on 6 L high flow nasal cannula with O2 saturations in the upper 90s. His been afebrile. Hemodynamically stable. Chest x-ray shows persistent left lung infiltrate. Right apical nodularity is/infiltrate. Blood and urine cultures revealed no growth. White count 24.5. Hemoglobin 8.8. Platelet count 800,000. Sodium 130. Potassium 3.6. Bicarb 33. BUN 12. Creatinine 0.46. Glucose 273. He is continued on DuoNeb inhalations, IV Solu-Medrol and antibiotics in the form of Zosyn. Heparin for DVT prophylaxis. The patient is seen today 05/21/2021 in follow-up on the regular medical floor. He remains awake and alert and oriented 3. Sitting up in bed. Denies any worsening shortness of breath, cough or congestion. He is now down to 3 L high flow nasal cannula with O2 saturations in the 90s. Blood cultures had revealed no growth. Urine culture revealed no growth. Blood glucose 81. He is continued on DuoNeb inhalations, IV Solu-Medrol, antibiotics in the form of Zosyn and Zyvox. Heparin for DVT prophylaxis. Levemir and NovoLog for blood sugar coverage. Patient was reevaluated today on 05/22/2021, patient is doing much better today compared to the last week. He is on 2 L nasal cannula, O2 saturation is in the low 90s. Patient is more comfortable. Sitting in bed, in no distress. Hardly any cough no wheezing no shortness of breath no chest pain. No labs were done today. His WBC count was trending down to 22.7 on 05/20. Patient remains on Zosyn. Remains on bronchodilators. Overall he is improving, chest x-ray is showing improvement in his left sided pneumonia hence that makes lymphangitic carcinomatosis less likely. Objective - Vital Signs Vital signs: Vital Signs Temp 97.5 F L 05/22/21 04:50 Pulse 85 05/22/21 08:06 Resp 20 05/22/21 04:50 BP 159/87 05/22/21 04:50 Pulse Ox 93 L 05/22/21 04:50 Intake & Output 05/21/21 05/22/21 05/22/21 18:59 06:59 18:59 Intake Total 340 Output Total 2400 700 Balance -2400 -360 Intake: IV 100 Piperacillin-Tazobactam 3 100 .375 gm In Sodium Chloride 0.9% 100 ml @ 25 mls/hr IVPB Q8HR [facility] Rx# :[id number] Sodium Chloride 0.9% 1, 0 000 ml @ 50 mls/hr IV . Q20H [facility] Rx#:[id number] Oral 240 Output: Urine 2400 700 Other: Voiding Method Indwelling Catheter Indwelling Catheter Indwelling Catheter - Exam GENERAL EXAM: Revealed a 70-year-old white male in no distress on 2 L nasal cannula. HEAD: Normocephalic/atraumatic. EENT: PERRLA, EOMI, nonicteric, no neck masses no JVD no stridor. CHEST: No chest wall deformity. Symmetrical expansion. LUNGS: Minimal crackles at the left base, right side is clear. CVS: Regular rate and rhythm, normal S1 and S2, no gallops, no murmurs, no rubs ABDOMEN: Soft, nontender. No hepatosplenomegaly, normal bowel sounds, no guarding or rigidity. EXTREMITIES: No clubbing edema or cyanosis. MUSCULOSKELETAL: No deformities and no limitation in range of motion. SKIN: No rashes CENTRAL NERVOUS SYSTEM: Alert and oriented 3 focal deficit PSYCHIATRIC: Normal mood affect and normal mental status examination. - Labs CBC & Chem 7: 05/20/21 07:50 05/21/21 13:56 Labs: Abnormal Lab Results - Last 24 Hours (Table) 05/21/21 05/21/21 05/21/21 Range/Units 11:25 13:56 17:11 POC Glucose (mg/dL) 153 H 335 H (75-99) mg/dL Magnesium 2.5 H (1.6-2.3) mg/dL 05/21/21 05/22/21 Range/Units 20:41 07:11 POC Glucose (mg/dL) 115 H 130 H (75-99) mg/dL Magnesium (1.6-2.3) mg/dL Assessment and Plan Assessment: Impression: Acute hypoxic respiratory failure secondary to sepsis and left sided pneumonia, gram-negative unless proven otherwise. Considering the patient is immunocompromised. Neutropenic fever, resolved. Small cell lung cancer with early SVC syndrome status post treatment. Hyponatremia secondary to SIADH, improved. Benign essential hypertension Degenerative joint disease History of latent TB back in 1996. Recommendation: Continue present treatment plan Continue oxygen patient is now on 2 L nasal cannula. Chest x-ray was reviewed and it seems to be reassuring. Consider discharge planning if cleared by other consultants. Pulmonary-moise, I will clear the patient for discharge. And follow-up on o utpatient basis Time with Patient: Less than 30
[2021-05-22 11:39] LABS: Glucose,Whole Blood 145 mg/dL (75-99)
[2021-05-22 13:26] LABS: Potassium 3.1 mmol/L (3.5-5.1)
[2021-05-22 13:27] LABS: ALT 36 U/L (4-49); AST 36 U/L (17-59); African American GFR (CKD) >90 (>60 ml/min/1.73 sqM); Albumin 2.7 g/dL (3.5-5.0); Alkaline Phosphatase 90 U/L (38-126); Anion Gap 3 mmol/L; Blood Urea Nitrogen 16 mg/dL (9-20); Calcium 7.9 mg/dL (8.4-10.2); Carbon Dioxide 35 mmol/L (22-30); Chloride 92 mmol/L (98-107); Globulin 2.7 g/dL; Glucose 137 mg/dL (74-99); Magnesium 2.2 mg/dL (1.6-2.3); Non-African American GFR(CKD) >90 (>60 ml/min/1.73 sqM); Sodium 130 mmol/L (137-145); Total Bilirubin 0.9 mg/dL (0.2-1.3); Total Protein 5.4 g/dL (6.3-8.2)
[2021-05-22 13:34] LABS: Anisocytosis Slight; HCT 31.2 % (39.0-53.0); HGB 10.2 gm/dL (13.0-17.5); MCH 30.7 pg (25.0-35.0); MCHC 32.6 g/dL (31.0-37.0); MCV 94.2 fL (80.0-100.0); Macrocytosis Slight; Mean Platelet Volume 7.7; Platelet Count 903 k/uL (150-450); Poikilocytosis Slight; RBC 3.32 m/uL (4.30-5.90); RDW 18.4 % (11.5-15.5)
[2021-05-22 14:25] LABS: Band Neutrophils % 1 %; Metamyelocytes % 2 %; Myelocytes % 5 %; Neutrophils % (M) 79 %; Nucleated Red Blood Cells 2 /100 WBC (0-0); Total Cells Counted 200
[2021-05-22 14:26] LABS: Lymphocytes # (M) 1.49 k/uL (1.0-4.8); Monocytes # (M) 2.23 k/uL (0-1.0); Myelocytes # (M) 1.24 k/uL (0); WBC 24.8 k/uL (3.8-10.6)
--- NOTE | 2021-05-22 16:47 | P.PN ---
Subjective Progress Note Date: 05/22/21 Principal diagnosis: SOB Sister, and grandson at bedside. Plan is to await for patient to be evaluated by IPR Monday and hoping for transfer as soon as bed available. Objective - Vital Signs Vital signs: Vital Signs Temp 97.5 F L 05/22/21 04:50 Pulse 85 05/22/21 08:06 Resp 20 05/22/21 04:50 BP 159/87 05/22/21 04:50 Pulse Ox 93 L 05/22/21 04:50 Intake & Output 05/21/21 05/22/21 05/22/21 18:59 06:59 18:59 Intake Total 340 Output Total 2400 700 Balance -2400 -360 Intake: IV 100 Piperacillin-Tazobactam 3 100 .375 gm In Sodium Chloride 0.9% 100 ml @ 25 mls/hr IVPB Q8HR [facility] Rx# :[id number] Sodium Chloride 0.9% 1, 0 000 ml @ 50 mls/hr IV . Q20H [facility] Rx#:[id number] Oral 240 Output: Urine 2400 700 Other: Voiding Method Indwelling Catheter Indwelling Catheter Indwelling Catheter - Exam High Flow Increased effort with minimal threshold to stimuli Alert Irreg Abd ndnt Ext BLE mild edema Crackles and audible congestion, mild increased effort - Labs CBC & Chem 7: 05/22/21 12:52 05/22/21 12:52 Labs: Abnormal Lab Results - Last 24 Hours (Table) 05/21/21 05/21/21 05/21/21 Range/Units 13:56 17:11 20:41 POC Glucose (mg/dL) 335 H 115 H (75-99) mg/dL Magnesium 2.5 H (1.6-2.3) mg/dL 05/22/21 05/22/21 Range/Units 07:11 11:38 POC Glucose (mg/dL) 130 H 145 H (75-99) mg/dL Magnesium (1.6-2.3) mg/dL Assessment and Plan (1) Acute delirium Narrative/Plan: improving everyday Current Visit: Yes Status: Acute Priority: High Code(s): R41.0 - DISORIENTATION, UNSPECIFIED SNOMED Code(s): 9539923 (2) Pancytopenia Narrative/Plan: Secondary to chemotherapy Stable no intervention Recheck today Current Visit: Yes Status: Acute Priority: Medium Code(s): D61.818 - OTHER PANCYTOPENIA SNOMED Code(s): 785955647 (3) Hyponatremia Narrative/Plan: Improved 130 yesterday Current Visit: No Status: Acute Priority: High Code(s): E87.1 - HYPO- OSMOLALITY AND HYPONATREMIA SNOMED Code(s): 48440808 (4) Lung cancer Narrative/Plan: Status post cycle one of chemotherapy without neulasta Status post Carbo, [employer]-16 and immune therapy Goal is to recover from hospitalization and restart treatment as soon as safe Discussed in detail with patient and family. The concern is his weakness from prolonged hospital stay and urinary retention requiring [id number] of mathur catheter. They are considered about ECF rehab, as in order to be eligible to restart palliative chemo he must improve overall performance, which he continues to do daily. IT is felt he should utilize rehab placement post discharge, unfortunately evaluation for IPR cannot be done till Monday. Current Visit: No Status: Acute Code(s): C34.90 - MALIGNANT NEOPLASM OF UNSP PART OF UNSP BRONCHUS OR LUNG SNOMED Code(s): 108541215 (5) SIADH (syndrome of inappropriate ADH production) Narrative/Plan: Nephrology Current Visit: No Status: Acute Priority: Medium Code(s): E22.2 - SYNDROME OF INAPPROPRIATE SECRETION OF ANTIDIURETIC HORMONE SNOMED Code(s): 07594564 Plan: Assessment and Plan Fever Afebrile today Continue Supportive Care Pulmonary continues to follow Await safe discharge from hospitalization with home PT likely Work on increasing strength and safety Plan to restart treatment after discharge. His cancer is still rather treatable per Dr. Dias as long as we can increase performance to tolerate. Hoping for IPR evaluation for discharge. We discussed the importance of staying adherent to therapy, adequate nutrition, and increasing performance for improving quality of life.
[2021-05-22 17:01] LABS: Glucose,Whole Blood 210 mg/dL (75-99)
[2021-05-22] MEDS: POTASSIUM CHLORIDE ER 20 MEQ TAB.ER PO SCH ×2 (17:50→21:14)
[2021-05-22 20:23] LABS: Glucose,Whole Blood 125 mg/dL (75-99)
--- NOTE | 2021-05-22 22:34 | P.PN ---
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 Patient did have a CT and a gram of the chest completed on 05/11/2021 with evidence of right upper lobe consolidation any increasing infiltrate On today's evaluation that is 05/22/2021 the patient remains to be afebrile, the patient is breathing comfortably and is down to 2 L nasal cannula oxygen the family mention he was off oxygen yesterday afternoon, patient denies chest pain, the patient cough is decreased in intensity, not bringing up any sputum , the patient denies abdominal pain and no diarrhea with antibiotic therapy Objective - Vital Signs Vital signs: Vital Signs Temp 97.0 F L 05/22/21 12:29 Pulse 86 05/22/21 12:29 Resp 18 05/22/21 12:29 BP 161/93 05/22/21 12:29 Pulse Ox 94 L 05/22/21 12:29 Intake & Output 05/21/21 05/22/21 05/22/21 18:59 06:59 18:59 Intake Total 340 Output Total 2400 700 Balance -2400 -360 Intake: IV 100 Piperacillin-Tazobactam 3 100 .375 gm In Sodium Chloride 0.9% 100 ml @ 25 mls/hr IVPB Q8HR [facility] Rx# :[id number] Sodium Chloride 0.9% 1, 0 000 ml @ 50 mls/hr IV . Q20H [facility] Rx#:[id number] Oral 240 Output: Urine 2400 700 Other: Voiding Method Indwelling Catheter Indwelling Catheter Indwelling Catheter - Exam GENERAL DESCRIPTION: An elderly male lying in bed in no distress RESPIRATORY SYSTEM: Unlabored breathing , decreased breath sounds at bases HEART: S1 S2 regular rate and rhythm , ABDOMEN: Soft , no tenderness EXTREMITIES: No edema feet - Labs CBC & Chem 7: 05/22/21 12:52 05/22/21 12:52 Labs: Abnormal Lab Results - Last 24 Hours (Table) 05/21/21 05/21/21 05/21/21 Range/Units 13:56 17:11 20:41 WBC (3.8-10.6) k/uL RBC (4.30-5.90) m/uL Hgb (13.0-17.5) gm/dL Hct (39.0-53.0) % RDW (11.5-15.5) % Plt Count (150-450) k/uL Sodium (137-145) mmol/L Potassium (3.5-5.1) mmol/L Chloride (98-107) mmol/L Carbon Dioxide (22-30) mmol/L Creatinine (0.66-1.25) mg/dL Glucose (74-99) mg/dL POC Glucose (mg/dL) 335 H 115 H (75-99) mg/dL Calcium (8.4-10.2) mg/dL Magnesium 2.5 H (1.6-2.3) mg/dL Total Protein (6.3-8.2) g/dL Albumin (3.5-5.0) g/dL 05/22/21 05/22/21 05/22/21 Range/Units 07:11 11:38 12:52 WBC 25.3 H (3.8-10.6) k/uL RBC 3.32 L (4.30-5.90) m/uL Hgb 10.2 L (13.0-17.5) gm/dL Hct 31.2 L (39.0-53.0) % RDW 18.4 H (11.5-15.5) % Plt Count 903 H (150-450) k/uL Sodium (137-145) mmol/L Potassium (3.5-5.1) mmol/L Chloride (98-107) mmol/L Carbon Dioxide (22-30) mmol/L Creatinine (0.66-1.25) mg/dL Glucose (74-99) mg/dL POC Glucose (mg/dL) 130 H 145 H (75-99) mg/dL Calcium (8.4-10.2) mg/dL Magnesium (1.6-2.3) mg/dL Total Protein (6.3-8.2) g/dL Albumin (3.5-5.0) g/dL 05/22/21 Range/Units 12:52 WBC (3.8-10.6) k/uL RBC (4.30-5.90) m/uL Hgb (13.0-17.5) gm/dL Hct (39.0-53.0) % RDW (11.5-15.5) % Plt Count (150-450) k/uL Sodium 130 L (137-145) mmol/L Potassium 3.1 L (3.5-5.1) mmol/L Chloride 92 L (98-107) mmol/L Carbon Dioxide 35 H (22-30) mmol/L Creatinine 0.44 L (0.66-1.25) mg/dL Glucose 137 H (74-99) mg/dL POC Glucose (mg/dL) (75-99) mg/dL Calcium 7.9 L (8.4-10.2) mg/dL Magnesium (1.6-2.3) mg/dL Total Protein 5.4 L (6.3-8.2) g/dL Albumin 2.7 L (3.5-5.0) g/dL Assessment and Plan (1) Fever Current Visit: Yes Status: Acute Code(s): R50.9 - FEVER, UNSPECIFIED SNOMED Code(s): 053049928 Plan: 1patient with a stage IV small cell cancer right upper lobe this patient has b een started on chemotherapy presented to the hospital with some mental status changes and has developed a fever source is likely right upper lobe pneumonia as no other obvious focus of infection urine has been negative abdominal soft on clinical examination no evidence of any cellulitis or joint swelling. 2 patient did have overall clinical improvement, patient to continue zosyn and Zyvox while inpatient and finishing therapy with oral Avelox and Zyvox 7 days on discharge, to discontinue his Pantoja catheter to decrease risk of UTI discussed with the admitting physician Time with Patient: Less than 30
--- NOTE | 2021-05-22 22:53 | P.PN ---
Subjective This is a pleasant 70-year-old male who was recently admitted with altered mental status and per the acute delirium. Patient was recently just discharged for severe hyponatremia. Patient was evaluated by physical therapy recommending subacute rehab although patient refused at that time and wanted to go home and Homecare was being arranged. Per patient continued to be confused and more altered and so was brought back to the hospital for further evaluation. Neurology and oncology been consulted and pending. Will also consult nephrology as patient sodium continues to be low and is currently 127. Patient does have an extensive past medical history of hypertension, osteoarthritis, EtOH abuse, and also small cell lung carcinoma and is currently receiving chemo immunotherapy treatments. Patient has been on high-dose steroids with a taper of Decadron per oncology services. Patient also recently had further workup with a bronchoscopy with biopsy in March that confirmed the small cell lung carcinoma and patient also underwent PET scan and findings were extensive stage IV disease. On admission to the ER labs were found to be a WBC of 1.3, hemoglobin 10.0, platelets were 100, sodium was 126, potassium 4.7, BUN 23, creatinine 0.33, magnesium 1.8, urinalysis is negative. Patient had a CT of the brain without contrast showing no evidence of intracranial hemorrhage mass effect or midline shift the white matter is grossly preserved and there is no acute intracranial abnormality noted. Patient was admitted for further evaluation and will also have PT/OT therapy evaluate the patient and will consult case management/social services technician to evaluate for ECF. Consultations currently pending. 05/10/2021 Patient is seen and evaluated in follow-up today currently sitting up in the chair. Patient being followed closely by nephrology. Patient continues with confusion at times and recommend PT/OT evaluation for possible ECF. Oncology also following along with neurology and LS-spine MRI is ordered and pending at this time. Patient continues with low-grade fevers and is maintained on IV antibiotics and will continue. Infectious disease was consulted and pending. Patient received a dose of Samsca yesterday and sodium improved at 131 today and recommend continue with fluid restrictions and will repeat labs. 05/17/2021 Patient is seen in follow up and continues in the ICU with pulmonary, oncology, and ID following. Patient is continued on Zosyn and Vanco and will continue. WBC trending down and is 17 today. Patient is afebrile. Patient continues on high flow airvo with settings of 60/85 abd continue to wean FI02 as tolerated. Encouraged increased activity as tolerated and continue with PT/OT. Oncology following and current treatment on hold until respiratory status improves. Patient also continued on IV steroids and breathing inhalational treatments and will continue. 05/18/2021 Patient is seen and evaluated in follow-up continues to be closely monitored in the ICU with multiple medical consultations following. WBC elevated at 24.2 hemoglobin is stable at 8.2. Sodium is stable at 134 with nephrology following. Recommend continue with fluid restrictions. Patient continues on high flow airvo 60/60 and slowly weaning as tolerated. Patient to continue with antibiotic therapy with infectious disease following closely as well. Per nursing staff patient was having some urinary retention and straight catheter over 1100 output. Continue to monitor and bladder scan as needed and is c ontinuing to retain may insert indwelling Pantoja catheter. Oncology, pulmonary, infectious disease following. Chest x-ray today shows continued left lung diffuse edema and/or infiltrates on background chronic emphysematous change in known right upper lung neoplasm left lung findings minimally improved from previous x-ray. Follow-up CT and MRI of the brain are negative with oncology following. Recommend holding current oncology treatment until improvement in current respiratory status. Continue to wean FiO2 as tolerated 05/19/2021 Patient is seen today and there is a long-time fellow coworker and friend visiting at the bedside. Patient continues currently on 8L HF NC and tolerating and needs continuous reminder to leave oxygen tubing on. Patient continues to desat quickly. Patient sodium stable at 133. Multiple medical consultations following. Patient in good spirits. Eating and tolerating diet. Blood sugars mildly elevated and will adjust sliding scale. WBC remains elevated. Patient is afebrile. Patient to continue on IV antibiotics and ID following. Patient denies chest pain or shortness of breath. Patient less winded during conversation. PT/OT daily. Encourage increase activity. Subjective: 05/20/2021 This is a pleasant 70 years old male with evidence of right upper lung mass secondary to advanced small cell lung cancer with hilar lymphadenopathy and extensive bilateral infiltrate, more on the left side suspicious for pneumonia and possible lymphangitic metastases more on the left side Patient is awake and alert but he still have difficulty breathing with exertion more than with rest, he is able to talk with short sentences., Oxygen requirement improvement from 10 down to 6 L per minute today.leukocytosis of 22,000, hemoglobin 8.8, sodium 1:30, glucose 275-300+ Patient currently kept on Zyvox, Zosyn, Solu-Medrol 60 mg of normal saline 50 mL/h. I discussed the case with case finisher/psychosocial rehabilitation counselor Jhonatan, patient does not want to go to rehab and he is a from [place] and is going to need oxygen upon discharge. 05/21/2021 Patient breathing significantly improved and currently he is on room air, he does not qualify for home oxygen. He denies any other symptoms and looks like medically his improvement and he can be discharged as he is hemodynamically stable and symptoms improved. In the morning he agreed for rehab and then change his mind to go home. However it looks like he change his mind again and he may consider it. Patient is medically stable for discharge pending placement related to his generalized weakness. Discontinue IV Solu-Medrol and start prednisone taper. Discontinue insulin and start metformin 250 twice a day, his hemoglobin A1c high 7.4% on admission. Discussed the case with infectious disease, he will be discharged on 7 days of Zyvox and Avelox 05/22/2021 Patient is doing well clinically, currently is on 2 L/m of oxygen however he does not qualify for home oxygen upon evaluation No other new complaint Patient is pending placement to subacute rehab and I discussed the case with psychosocial rehabilitation counselor Chelsea today, patient has to wait till Monday, other than that he is medically stable for discharge Discontinue Pantoja catheter today and check postvoid residual, discussed with bed side nurse Marjorie Objective - Vital Signs Vital signs: Vital Signs Temp 97.0 F L 05/22/21 12:29 Pulse 86 05/22/21 12:29 Resp 18 05/22/21 12:29 BP 161/93 05/22/21 12:29 Pulse Ox 94 L 05/22/21 12:29 Intake & Output 05/21/21 05/22/21 05/22/21 18:59 06:59 18:59 Intake Total 340 Output Total 2400 700 Balance -2400 -360 Intake: IV 100 Piperacillin-Tazobactam 3 100 .375 gm In Sodium Chloride 0.9% 100 ml @ 25 mls/hr IVPB Q8HR [facility] Rx# :[id number] Sodium Chloride 0.9% 1, 0 000 ml @ 50 mls/hr IV . Q20H [facility] Rx#:[id number] Oral 240 Output: Urine 2400 700 Other: Voiding Method Indwelling Catheter Indwelling Catheter Indwelling Catheter - Exam GENERAL: The patient is alert and oriented x3, not in any acute distress. Well developed, well nourished. HEENT: Pupils are round and equally reacting to light. EOMI. No scleral icterus. No conjunctival pallor. Normocephalic, atraumatic. No pharyngeal erythema. No thyromegaly. CARDIOVASCULAR: S1 and S2 present. No murmurs, rubs, or gallops. -PULMONARY: Chest is clear to auscultation, no wheezing or crackles. Decreased air entry on both sides ABDOMEN: Soft, nontender, nondistended, normoactive bowel sounds. No palpable organomegaly. MUSCULOSKELETAL: No joint swelling or deformity. EXTREMITIES: No cyanosis, clubbing, or pedal edema. NEUROLOGICAL: Gross neurological examination did not reveal any focal deficits. SKIN: No rashes. no petechiae. - Labs CBC & Chem 7: 05/22/21 12:52 05/22/21 12:52 Labs: Abnormal Lab Results - Last 24 Hours (Table) 05/21/21 05/21/21 05/21/21 Range/Units 13:56 17:11 20:41 POC Glucose (mg/dL) 335 H 115 H (75-99) mg/dL Magnesium 2.5 H (1.6-2.3) mg/dL 05/22/21 05/22/21 Range/Units 07:11 11:38 POC Glucose (mg/dL) 130 H 145 H (75-99) mg/dL Magnesium (1.6-2.3) mg/dL Assessment and Plan Assessment: Small cell lung cancer, advanced disease with right upper lobe lung mass Dehiscence of bilateral infiltrate mostly secondary to pneumonia with Ventritex metastasis cannot be ruled out Acute hypoxemic respiratory failure Generalized weakness and deconditioning Hyponatremia, SIADH is suspected but also secondary to hyperglycemia Acute COPD exacerbation Plan: This is a pleasant 70 years old male who presents with lung cancer, pneumonia and COPD Continue with antibiotics per ID team, currently on Zyvox and Zosyn. DC on oral antibiotic Sutures steroids to tapered prednisone change Levemir to metformin 250 twice a day Several consultants on the case with and ID team, pulmonary and oncology/hematology Discontinue Pantoja catheter Labs and medication were reviewed.. Continue same treatment. Continue with symptomatic treatment. Resume home medication. Monitor lytes and vitals. DVT and GI prophylaxis. Further recommendations as per clinical course of the patient DVT prophylaxis: Subcutaneous heparin GI Prophylaxis: Ppi PT/OT: Patient is considering rehab Patient medically stable for discharge pending placement
[2021-05-23] MEDS: IPRATROPIUM-ALBUTEROL 3 ML NEB INHALATION SCH ×7 (00:32→23:19)
[2021-05-23 07:37] LABS: Glucose,Whole Blood 96 mg/dL (75-99)
[2021-05-23] MEDS: FOLIC ACID 1 MG TAB PO SCH (08:05)
[2021-05-23] MEDS: PANTOPRAZOLE 40 MG TABLET PO SCH (08:05)
[2021-05-23] MEDS: HEPARIN SODIUM,PORCINE/PF 5,000 UNIT/0.5 ML SYRINGE SQ SCH ×2 (08:05→20:59)
[2021-05-23] MEDS: metFORMIN 500 MG TAB PO SCH ×2 (08:05→17:38)
[2021-05-23] MEDS: predniSONE 20 MG TAB PO SCH (08:05)
[2021-05-23] MEDS: LINEZOLID 600 MG TAB PO SCH ×2 (08:05→20:59)
[2021-05-23] MEDS: MAGNESIUM OXIDE 400 MG TAB PO SCH (08:06)
[2021-05-23] MEDS: PIPERACILLIN-TAZOBACTAM 3.375 GM in SODIUM CHLORIDE 0.9% 100 ML IVPB SCH ×3 (08:06→23:43)
[2021-05-23] MEDS: INSULIN ASPART (NovoLOG) 100 UNIT/ML VIAL SQ SCH ×4 (08:07→20:56)
[2021-05-23 11:43] LABS: Glucose,Whole Blood 95 mg/dL (75-99)
[2021-05-23 11:57] LABS: African American GFR (CKD) 137.5 (60.0-200.0); Albumin 3.1 g/dL (3.8-4.9); Albumin/Globulin Ratio 1.41 (1.60-3.17); Anion Gap 13.3 mmol/L (10.00-18.00); BUN/Creat Ratio 33.5 Ratio (12.00-20.00); Blood Urea Nitrogen 13.4 mg/dL (9.0-27.0); Calcium 8.5 mg/dL (8.7-10.3); Carbon Dioxide 27.7 mmol/L (20.0-27.5); Globulin 2.2 g/dL (1.6-3.3); Magnesium 2.4 mg/dL (1.5-2.4); Non-African American GFR(CKD) 118.7 (60.0-200.0); Potassium 3.7 mmol/L (3.5-5.5); Total Bilirubin 0.4 mg/dL (0.30-1.20); Total Protein 5.3 g/dL (6.2-8.2)
[2021-05-23] MEDS: TAMSULOSIN 0.4 MG CAP.ER.24H PO SCH (13:36)
[2021-05-23 15:02] LABS: HCT 31.1 % (39.6-50.0); HGB 9.9 g/dL (13.0-17.0); MCHC 31.8 g/dL (32.0-37.0); MCV 97.5 fL (80.0-97.0); Mean Platelet Volume 10.6 fL (9.5-12.2); NRBC Per 100 WBC 0.7 /100 WBCS (0.0-0.0); Platelet Count 868 X 10*3/uL (140-440); RBC 3.19 X 10*6/uL (4.40-5.60); RDW 19.3 % (11.5-14.5); WBC 24.85 X 10*3/uL (4.50-10.00)
[2021-05-23 15:03] LABS: Anisocytosis (M) 2+; Crenated RBC 2+; Microcytosis (M) 2+; Neutrophils # (M) 21.62 X 10*3/uL (2.00-8.90)
[2021-05-23 17:26] LABS: Glucose,Whole Blood 172 mg/dL (75-99)
[2021-05-23 20:55] LABS: Glucose,Whole Blood 99 mg/dL (75-99)
--- NOTE | 2021-05-23 23:28 | P.PN ---
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 Patient did have a CT and a gram of the chest completed on 05/11/2021 with evidence of right upper lobe consolidation any increasing infiltrate On today's evaluation that is 05/23/2021 the patient denies any fever or chills, the patient is breathing comfortably on room air, patient denies chest pain, the patient cough is decreased in intensity, not bringing up any sputum , the patient denies abdominal pain and no diarrhea with antibiotic therapy Objective - Vital Signs Vital signs: Vital Signs Temp 98.1 F 05/23/21 13:00 Pulse 107 H 05/23/21 13:00 Resp 17 05/23/21 13:00 BP 142/86 05/23/21 13:00 Pulse Ox 94 L 05/23/21 13:00 Intake & Output 05/22/21 05/23/21 05/23/21 18:59 06:59 18:59 Intake Total 750 Output Total 400 551 Balance 350 -551 Intake: Oral 750 Output: Urine 400 550 Uretheral (Pantoja) 400 550 Stool 1 Other: Voiding Method Indwelling Catheter Diaper Indwelling Catheter # Bowel Movements 1 1 - Exam GENERAL DESCRIPTION: An elderly male lying in bed in no distress RESPIRATORY SYSTEM: Unlabored breathing , decreased breath sounds at bases HEART: S1 S2 regular rate and rhythm , ABDOMEN: Soft , no tenderness EXTREMITIES: No edema feet - Labs CBC & Chem 7: 05/23/21 06:56 05/23/21 06:56 Labs: Abnormal Lab Results - Last 24 Hours (Table) 05/22/21 05/22/21 05/23/21 Range/Units 17:00 20:22 06:56 Carbon Dioxide 27.7 H (20.0-27.5) mmol/L Creatinine 0.4 L (0.6-1.5) mg/dL BUN/Creatinine Ratio 33.50 H (12.00-20.00) Ratio Glucose 65 L (70-110) mg/dL POC Glucose (mg/dL) 210 H 125 H (75-99) mg/dL Calcium 8.5 L (8.7-10.3) mg/dL Total Protein 5.3 L (6.2-8.2) g/dL Albumin 3.1 L (3.8-4.9) g/dL Albumin/Globulin Ratio 1.41 L (1.60-3.17) g/dL Assessment and Plan (1) Fever Current Visit: Yes Status: Acute Code(s): R50.9 - FEVER, UNSPECIFIED SNOMED Code(s): 104009994 Plan: 1patient with a stage IV small cell cancer right upper lobe this patient has been started on chemotherapy presented to the hospital with some mental status changes and has developed a fever source is likely right upper lobe pneumonia as no other obvious focus of infection urine has been negative abdominal soft on clinical examination no evidence of any cellulitis or joint swelling. 2 patient did have overall clinical improvement, patient to continue zosyn and Zyvox while inpatient and finishing therapy with oral Avelox and Zyvox 7 days on discharge, and continue to monitor patient closely Time with Patient: Less than 30
[2021-05-24] MEDS: IPRATROPIUM-ALBUTEROL 3 ML NEB INHALATION SCH ×4 (03:49→15:11)
--- NOTE | 2021-05-24 05:52 | P.CONS ---
History of Present Illness - Chief Complaint Medical debility - History of Present Illness I had the opportunity to see patient for inpatient rehab consultation with regard to medical debility at the request of Dr. Collins. Patient admitted to [facility] May 06 with delirium history of pulmonary cancer right upper lobe and chemotherapy. Admitted with hyponatremia, SIADH. Patient had recent admission in declined recommendation for REBEL. Seen in neurology by Dr. his son. Seen by oncology for the cancer. 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 Seen by Dr. Watson who notes early SVC syndrome, witnessed seizure. Workup includes chest x-rays for left upper lobe and frontal trait and right apical mass. C-spine MRI with disc bulges C3 to 6 and with centrals and bilateral effacement/stenosis C4-6. Venous Doppler negative for DVT right and left leg. Chest CTA negative for PE but right upper lobe mass demonstrated. Cervical MRI C3 broad bulge with thecal effect. Has started therapies. PT reports supervision for bed mobility transfers and gait 40 feet with roller walker. Moderate assistance for toilet transfer though. OT demonstrates independent with feeding, supervision for grooming and upper dressing and toileting, minimal assistance for lower dressing and bathing and functional mobility/transfers. Limited endurance. Previous functional history as elicited from patient: States is 30-year-old but is actually 70-year-old right-handed white male who is lives and 2 floor home with . Works full-time. He describes independent with cooking, laundry, driving, standing shower and gait without device. PCP is [facility]. Denies tobacco or alcohol. Review of Systems Review of systems: ENT: Denies sneezes or discharge. Eyes: Denies discharge or photophobia. Cardiac: Denies chest pain or palpitation. Pulmonary: Denies cough or shortness of breath. Gastrointestinal: Denies nausea, emesis, constipation, diarrhea. Genitourinary: Denies discharge or frequency. Musculoskeletal: Denies muscle or bone aches. Neurologic: General weakness. Endocrine: Denies shakes or sweats. Oncology: Denies cancers. Dermatologic: Denies rash, itching, pruritus. ALLERGY/immunology: Denies sneezes, rashes. Past Medical History Past Medical History: Cancer, Hypertension, Osteoarthritis (OA) Additional Past Medical History / Comment(s): HX OF POSITIVE TB SKIN TEST WITH TX (1996) History of Any Multi-Drug Resistant Organisms: None Reported Past Surgical History: Hernia Repair, Orthopedic Surgery Additional Past Surgical History / Comment(s): ANGEL CARPAL TUNNEL , ANGEL KNEE SURGERY, ANGEL CATARACT REM. Past Anesthesia/Blood Transfusion Reactions: No Reported Reaction Past Psychological History: No Psychological Hx Reported Additional Psychological History / Comment(s): Pt resides with his spouse. He is independent. Smoking Status: Former smoker Past Alcohol Use History: Occasional Additional Past Alcohol Use History / Comment(s): SMOKES 2 CIGARS DAILY. STARTED SMOKING AGE 14, QUIT CIGARETTES 1984. DRINKS 3-4 BEERS DAILY. Past Drug Use History: None Reported - Past Family History Father Family Medical History: Cancer Additional Family Medical History / Comment(s): COLON CANCER Brother(s) Family Medical History: Cancer Additional Family Medical History / Comment(s): BLADDER CANCER Medications and Allergies Home Medications Medication Instructions Recorded Confirmed Type Carboxymethylcellulose Sodium 1 drop BOTH EYES DAILY PRN 03/26/21 05/06/21 History [Refresh Tears] Leg Cramps 1 tab PO DAILY PRN 04/30/21 05/06/21 History OLANZapine [ZyPREXA] 2.5 mg PO DIRECTED 04/30/21 05/06/21 History Ondansetron [Zofran] 4 mg PO Q4H PRN 04/30/21 05/06/21 History Sodium Chloride Tab 1 gm PO DAILY 30 Days #30 tablet 05/04/21 05/06/21 Rx dexAMETHasone ORAL [Hexadrol] 1 mg PO DAILY 05/06/21 05/06/21 History Albuterol Inhaler [Ventolin Hfa 1 puff INHALATION RT-TID PRN #8 gm 05/21/21 Rx Inhaler] Folic Acid 1 mg PO DAILY #30 tab 05/21/21 Rx Linezolid [Zyvox] 600 mg PO Q12HR 7 Days #14 tab 05/21/21 Rx Moxifloxacin HCl [Avelox] 400 mg PO DAILY 7 Days #7 tablet 05/21/21 Rx Omeprazole [PriLOSEC] 20 mg PO AC-BID #60 cap 05/21/21 Rx Tamsulosin HCl [Flomax] 0.4 mg PO DAILY 14 Days #14 capsule 05/21/21 Rx metFORMIN HCL 250 mg PO BID #30 tablet 05/21/21 Rx predniSONE 10 mg PO DIRECTED #18 tab 05/21/21 Rx Allergies Allergy/AdvReac Type Severity Reaction Status Date / Time No Known Allergies Allergy Verified 05/06/21 19:25 Physical Exam Vitals: Vital Signs Temp Pulse Pulse Resp BP Pulse Ox 05/24/21 05:00 98.2 F 98 16 151/83 92 L 05/23/21 21:00 98.3 F 92 20 131/82 96 05/23/21 13:00 98.1 F 107 H 17 142/86 94 L Intake and Output 05/23/21 05/23/21 05/24/21 14:59 22:59 06:59 Intake Total 240 Output Total 700 Balance 240 -700 Intake: Oral 240 Output: Urine 700 Other: Voiding Method Indwelling Catheter Indwelling Catheter # Bowel Movements 2 Skin: Atrophic, intact. General: Thin build and comfortable appearance. Head: Normocephalic, atraumatic. Eyes: Symmetric. Pupils equal round. Ears: Symmetric. Hearing within normal limits. Mouth: Clear. Neck: Supple. Carotid without bruit. Cardiac: Regular rate and rhythm. Lungs: Clear anteriorly and posteriorly. Abdomen: Soft active nontender. Extremities: Normal tone. Neurological: Mental status: Alert, cooperative, pleasant. Cranial nerves: Symmetric facial tone and trapezius. Motor: Able to actively elevate all 4 limbs. Sensation: Intact throughout. DTRs: Symmetric and equal throughout. Mobility: Sits with assistance. Results CBC & Chem 7: 05/23/21 06:56 05/23/21 06:56 Labs: Abnormal Lab Results - Last 24 Hours (Table) 05/23/21 05/23/21 05/23/21 Range/Units 06:56 06:56 17:17 WBC 24.85 H (4.50-10.00) X 10*3/uL RBC 3.19 L (4.40-5.60) X 10*6/uL Hgb 9.9 L (13.0-17.0) g/dL Hct 31.1 L (39.6-50.0) % MCV 97.5 H (80.0-97.0) fL MCHC 31.8 L (32.0-37.0) g/dL RDW 19.3 H (11.5-14.5) % Plt Count 868 H (140-440) X 10*3/uL Plt Count Comment INCREASED A Absolute Nucleated RBC 0.17 H (0.00-0.00) X 10*3/uL Neutrophils # (Manual) 21.62 H (2.00-8.90) X 10*3/uL NRBC/100 WBC Diff 0.7 H (0.0-0.0) /100 WBCS Carbon Dioxide 27.7 H (20.0-27.5) mmol/L Creatinine 0.4 L (0.6-1.5) mg/dL BUN/Creatinine Ratio 33.50 H (12.00-20.00) Ratio Glucose 65 L (70-110) mg/dL POC Glucose (mg/dL) 172 H (75-99) mg/dL Calcium 8.5 L (8.7-10.3) mg/dL Total Protein 5.3 L (6.2-8.2) g/dL Albumin 3.1 L (3.8-4.9) g/dL Albumin/Globulin Ratio 1.41 L (1.60-3.17) g/dL Assessment and Plan (1) Acute delirium Current Visit: Yes Status: Acute Priority: High Code(s): R41.0 - DISORIENTATION, UNSPECIFIED SNOMED Code(s): 8333855 (2) Acute respiratory failure Current Visit: Yes Status: Acute Code(s): J96.00 - ACUTE RESPIRATORY FAILURE, UNSP W HYPOXIA OR HYPERCAPNIA SNOMED Code(s): 95360269 (3) COPD (chronic obstructive pulmonary disease) Current Visit: Yes Status: Acute Code(s): J44.9 - CHRONIC OBSTRUCTIVE PULMONARY DISEASE, UNSPECIFIED SNOMED Code(s): 04773093 (4) Fever Current Visit: Yes Status: Acute Code(s): R50.9 - FEVER, UNSPECIFIED SNOMED Code(s): 025513141 (5) Pancytopenia Current Visit: Yes Status: Acute Priority: Medium Code(s): D61.818 - OTHER PANCYTOPENIA SNOMED Code(s): 019097318 (6) Small cell lung cancer Current Visit: Yes Status: Acute Priority: High Code(s): C34.90 - MALIGNANT NEOPLASM OF UNSP PART OF UNSP BRONCHUS OR LUNG SNOMED Code(s): 325722180 (7) COVID-19 Current Visit: No Status: Acute Code(s): U07.1 - COVID-19 SNOMED Code(s): 953816252 (8) Hyponatremia Current Visit: No Status: Acute Priority: High Code(s): E87.1 - HYPO- OSMOLALITY AND HYPONATREMIA SNOMED Code(s): 28020044 Plan: Comments and plan: At this time PT and OT are ongoing. Will however require updated therapy notes. I note that there prescriptions for patient on front of chart and suspect that he may already be in process of discharge or return to home. We'll have rehab training and development coordinator review case with the Misael case repairer.
[2021-05-24 07:44] LABS: Glucose,Whole Blood 96 mg/dL (75-99)
[2021-05-24] MEDS: INSULIN ASPART (NovoLOG) 100 UNIT/ML VIAL SQ SCH ×3 (07:44→17:52)
[2021-05-24] MEDS: PIPERACILLIN-TAZOBACTAM 3.375 GM in SODIUM CHLORIDE 0.9% 100 ML IVPB SCH ×2 (09:35→16:57)
[2021-05-24] MEDS: PANTOPRAZOLE 40 MG TABLET PO SCH (09:35)
[2021-05-24] MEDS: TAMSULOSIN 0.4 MG CAP.ER.24H PO SCH (09:36)
[2021-05-24] MEDS: metFORMIN 500 MG TAB PO SCH ×2 (09:37→17:52)
[2021-05-24] MEDS: LINEZOLID 600 MG TAB PO SCH (09:38)
[2021-05-24] MEDS: MAGNESIUM OXIDE 400 MG TAB PO SCH (09:38)
[2021-05-24] MEDS: FOLIC ACID 1 MG TAB PO SCH (09:38)
[2021-05-24] MEDS: predniSONE 20 MG TAB PO SCH (09:38)
[2021-05-24] MEDS: HEPARIN SODIUM,PORCINE/PF 5,000 UNIT/0.5 ML SYRINGE SQ SCH (09:39)
--- NOTE | 2021-05-24 09:41 | P.PN ---
Subjective Progress Note Date: 05/24/21 Principal diagnosis: SOB Spoke to Dr. Gayle and awaiting on IPR Objective - Vital Signs Vital signs: Vital Signs Temp 98.2 F 05/24/21 05:00 Pulse 98 05/24/21 05:00 Resp 16 05/24/21 05:00 BP 151/83 05/24/21 05:00 Pulse Ox 92 L 05/24/21 05:00 Intake & Output 05/23/21 05/24/21 05/24/21 18:59 06:59 18:59 Intake Total 240 410 Output Total 700 Balance 240 -290 Intake: IV 100 Piperacillin-Tazobactam 3 100 .375 gm In Sodium Chloride 0.9% 100 ml @ 25 mls/hr IVPB Q8HR [facility] Rx# :[id number] Oral 240 310 Output: Urine 700 Other: Voiding Method Indwelling Catheter Indwelling Catheter # Bowel Movements 2 - Exam High Flow Increased effort with minimal threshold to stimuli Alert Irreg Abd ndnt Ext BLE mild edema Crackles and audible congestion, mild increased effort - Labs CBC & Chem 7: 05/24/21 11:17 05/23/21 06:56 Labs: Abnormal Lab Results - Last 24 Hours (Table) 05/23/21 05/23/21 05/23/21 Range/Units 06:56 06:56 17:17 WBC 24.85 H (4.50-10.00) X 10*3/uL RBC 3.19 L (4.40-5.60) X 10*6/uL Hgb 9.9 L (13.0-17.0) g/dL Hct 31.1 L (39.6-50.0) % MCV 97.5 H (80.0-97.0) fL MCHC 31.8 L (32.0-37.0) g/dL RDW 19.3 H (11.5-14.5) % Plt Count 868 H (140-440) X 10*3/uL Plt Count Comment INCREASED A Absolute Nucleated RBC 0.17 H (0.00-0.00) X 10*3/uL Neutrophils # (Manual) 21.62 H (2.00-8.90) X 10*3/uL NRBC/100 WBC Diff 0.7 H (0.0-0.0) /100 WBCS Carbon Dioxide 27.7 H (20.0-27.5) mmol/L Creatinine 0.4 L (0.6-1.5) mg/dL BUN/Creatinine Ratio 33.50 H (12.00-20.00) Ratio Glucose 65 L (70-110) mg/dL POC Glucose (mg/dL) 172 H (75-99) mg/dL Calcium 8.5 L (8.7-10.3) mg/dL Total Protein 5.3 L (6.2-8.2) g/dL Albumin 3.1 L (3.8-4.9) g/dL Albumin/Globulin Ratio 1.41 L (1.60-3.17) g/dL Assessment and Plan (1) Acute delirium Narrative/Plan: improving everyday Current Visit: Yes Status: Acute Priority: High Code(s): R41.0 - DISORIENTATION, UNSPECIFIED SNOMED Code(s): 9406010 (2) Pancytopenia Narrative/Plan: Secondary to chemotherapy Stable no intervention Recheck today Current Visit: Yes Status: Acute Priority: Medium Code(s): D61.818 - OTHER PANCYTOPENIA SNOMED Code(s): 986370644 (3) Hyponatremia Narrative/Plan: Improved 130 yesterday Current Visit: No Status: Acute Priority: High Code(s): E87.1 - HYPO- OSMOLALITY AND HYPONATREMIA SNOMED Code(s): 84775901 (4) Lung cancer Narrative/Plan: Status post cycle one of chemotherapy without neulasta Status post Carbo, HOME HEALTH AID-16 and immune therapy Goal is to recover from hospitalization and restart treatment as soon as safe Discussed in detail with patient and family. The concern is his weakness from prolonged hospital stay and urinary retention requiring [id number] of mathur catheter. They are considered about ECF rehab, as in order to be eligible to restart palliative chemo he must improve overall performance, which he continues to do daily. IT is felt he should utilize rehab placement post discharge, unfortunately evaluation for IPR cannot be done till Monday. Current Visit: No Status: Acute Code(s): C34.90 - MALIGNANT NEOPLASM OF UNSP PART OF UNSP BRONCHUS OR LUNG SNOMED Code(s): 762944181 (5) SIADH (syndrome of inappropriate ADH production) Narrative/Plan: Nephrology Current Visit: No Status: Acute Priority: Medium Code(s): E22.2 - SYNDROME OF INAPPROPRIATE SECRETION OF ANTIDIURETIC HORMONE SNOMED Code(s): 48099606 (6) Debility Narrative/Plan: Prolonged hospital stay, feel he is a great candidate IPR due to the highly treatable cancer and would like to restart and IPR would allow opportunity to regain baseline performance most efficiently. Current Visit: Yes Status: Acute Code(s): R53.81 - OTHER MALAISE SNOMED Code(s): 83062120 Plan: Await Dr. Caceres's evaluation and hopeful acceptance for IPR. Discussed expectations and plan with patient, , sister and family at bedside, all questions answered.
[2021-05-24 11:52] LABS: Glucose,Whole Blood 174 mg/dL (75-99)
[2021-05-24 12:47] LABS: Anisocytosis Slight; HCT 31.4 % (39.0-53.0); HGB 10.2 gm/dL (13.0-17.5); Hypochromasia Slight; MCH 31.8 pg (25.0-35.0); MCHC 32.5 g/dL (31.0-37.0); Macrocytosis Slight; Mean Platelet Volume 8.2; Platelet Count 806 k/uL (150-450); Poikilocytosis Slight; RBC 3.21 m/uL (4.30-5.90); RDW 19.3 % (11.5-15.5); WBC 18.2 k/uL (3.8-10.6)
--- NOTE | 2021-05-24 12:48 | P.PN ---
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 Patient did have a CT and a gram of the chest completed on 05/11/2021 with evidence of right upper lobe consolidation any increasing infiltrate On today's evaluation that is 05/24/2021 the patient remains to be afebrile, the patient is breathing comfortably on room air, patient denies chest pain, the patient cough has decreased in intensity,and is dry in nature the patient denies abdominal pain and no diarrhea with antibiotic therapy, Pantoja catheter has to be reinserted because of hypertension Objective - Vital Signs Vital signs: Vital Signs Temp 98.2 F 05/24/21 05:00 Pulse 98 05/24/21 05:00 Resp 16 05/24/21 05:00 BP 151/83 05/24/21 05:00 Pulse Ox 92 L 05/24/21 05:00 Intake & Output 05/23/21 05/24/21 05/24/21 18:59 06:59 18:59 Intake Total 240 410 Output Total 700 Balance 240 -290 Intake: IV 100 Piperacillin-Tazobactam 3 100 .375 gm In Sodium Chloride 0.9% 100 ml @ 25 mls/hr IVPB Q8HR [facility] Rx# :[id number] Oral 240 310 Output: Urine 700 Other: Voiding Method Indwelling Catheter Indwelling Catheter # Bowel Movements 2 - Exam GENERAL DESCRIPTION: An elderly male lying in bed in no distress RESPIRATORY SYSTEM: Unlabored breathing , decreased breath sounds at bases HEART: S1 S2 regular rate and rhythm , ABDOMEN: Soft , no tenderness EXTREMITIES: No edema feet - Labs CBC & Chem 7: 05/23/21 06:56 05/23/21 06:56 Labs: Abnormal Lab Results - Last 24 Hours (Table) 05/23/21 05/23/21 05/23/21 Range/Units 06:56 06:56 17:17 WBC 24.85 H (4.50-10.00) X 10*3/uL RBC 3.19 L (4.40-5.60) X 10*6/uL Hgb 9.9 L (13.0-17.0) g/dL Hct 31.1 L (39.6-50.0) % MCV 97.5 H (80.0-97.0) fL MCHC 31.8 L (32.0-37.0) g/dL RDW 19.3 H (11.5-14.5) % Plt Count 868 H (140-440) X 10*3/uL Plt Count Comment INCREASED A Absolute Nucleated RBC 0.17 H (0.00-0.00) X 10*3/uL Neutrophils # (Manual) 21.62 H (2.00-8.90) X 10*3/uL NRBC/100 WBC Diff 0.7 H (0.0-0.0) /100 WBCS Carbon Dioxide 27.7 H (20.0-27.5) mmol/L Creatinine 0.4 L (0.6-1.5) mg/dL BUN/Creatinine Ratio 33.50 H (12.00-20.00) Ratio Glucose 65 L (70-110) mg/dL POC Glucose (mg/dL) 172 H (75-99) mg/dL Calcium 8.5 L (8.7-10.3) mg/dL Total Protein 5.3 L (6.2-8.2) g/dL Albumin 3.1 L (3.8-4.9) g/dL Albumin/Globulin Ratio 1.41 L (1.60-3.17) g/dL Assessment and Plan (1) Fever Current Visit: Yes Status: Acute Code(s): R50.9 - FEVER, UNSPECIFIED SNOMED Code(s): 257312512 Plan: 1patient with a stage IV small cell cancer right upper lobe this patient has been started on chemotherapy presented to the hospital with some mental status changes and has developed a fever source is likely right upper lobe pneumonia as no other obvious focus of infection urine has been negative abdominal soft on clinical examination no evidence of any cellulitis or joint swelling. 2 patient seems to have shown clinical improvement, patient is currently being treated with zosyn and Zyvox with a plan to finish therapy with oral Avelox and Zyvox 7 days on discharge Time with Patient: Less than 30
[2021-05-24 13:06] VITALS: BP 122/69; RESP 18; TEMP 98.6
--- NOTE | 2021-05-24 15:05 | CDI ---
Documentation Clarification Form Date: 05/24/2021 02:39:36 PM From: Alisa Love RN CCDS Admit Date: 05/06/2021 07:45:00 PM Patient Name: Champ Cordon Visit Number: [id number] Discharge Date: ATTENTION: The Clinical Documentation Specialists (CDI) and [facility] Coding Staff appreciate your assistance in clarifying documentation. Please respond to the clarification below the line at the bottom and electronically sign. The CDI & [facility] Coding staff will review the response and follow-up if needed. Please note: Queries are made part of the Legal Health Record. If you have any questions, please contact the author of this message via ITS. Dr. Phillip Gayle Sepsis is documented Internal medicine notes , 05/08 thru 05/19, but is not noted in subsequent documentation by Internal medicine. Clarification is requested. History/Risk Factors: Clinical Indicators: 05/08 Heme Onc This could be possibly related to neutropenic fever and sepsis 05/11 Pulmonary Consult: Acute hypoxic respiratory failure secondary to sepsis, underlying lung cancer. 05/15 Internal Medicine Fever, possible sepsis, present on admission. VSS: 05/06 B/P 113/58; HR 102; Temp 99.0 F Oral; RR 20; 97% Room air Labs: 05/06 Wbc 1.3; Hgb 10.0; PLT 100; NA 126; Cr 0.33; Glucose 126; Calcium 8.1 CXR: 05/08 No change in the right suprahilar opacity/mass in right upper lobe 2cm pulmonary nodule . Treatment: 05/07 05/08 Ceftriaxone Sodium 2gm IVPB Q24H; 05/08 Vancomycin IVPB 1,000mg IVPB x 1; 05/09 05/10 Vancomycin 1,000mg IVPB Q8H; 05/08 04/16 Cefepime HCI 2gm IVPB Q8H; 05/14 current 05/24 Piperacillin Sod/Tazobactam Sod 3.375gm IVPB QH; 05/14 Vancomycin 1,00mg IVPB x 1; 05/15 05/19 Vancomycin 1,000mg IVPB Q8H. Please clarify if the Sepsis is: [ ] Sepsis confirmed, remains under treatment [ ] Sepsis confirmed, resolved [ ] Other condition, please specify [ ] Unable to determine (Template Last Revised: April 2020) sepsis , treated and resolved , but pt still needs treatment for his infection currently , now no more sepsi MTDD
[2021-05-24 15:24] VITALS: PULSE 100
--- NOTE | 2021-05-24 15:31 | P.DS ---
Providers Date of admission: 05/06/21 19:45 Attending physician: Mike Collins Consults: 05/06/21 19:46 Consult Physician Routine Consulting Provider: Javi Bradford Consult Reason/Comments: delerium Do you want consulting provider notified?: Yes 05/06/21 20:36 Consult Physician Routine Consulting Provider: Alfredo Dias Consult Reason/Comments: pancytopenia Do you want consulting provider notified?: Yes 05/07/21 12:35 Consult Physician Urgent Consulting Provider: Marivel Modi Consult Reason/Comments: hyponatremia Do you want consulting provider notified?: Yes 05/08/21 17:09 Consult Physician Routine Consulting Provider: Dulce Che Consult Reason/Comments: sepsis Do you want consulting provider notified?: Yes 05/11/21 13:50 Consult Physician Routine Consulting Provider: Pancho Watson Consult Reason/Comments: Hypoxia unclear etiology Do you want consulting provider notified?: Yes 05/21/21 15:35 Consult Physician Routine Consulting Provider: Charles Caceres Consult Reason/Comments: IPR Do you want consulting provider notified?: Yes Consult Physician Urgent Consulting Provider: Charles Caceres Consult Reason/Comments: generalized weakness Do you want consulting provider notified?: Yes Primary care physician: [facility] Hospital Course: Diagnoses Small cell lung cancer, advanced disease with right upper lobe lung mass Dehiscence of bilateral infiltrate mostly secondary to pneumonia with Ventritex metastasis cannot be ruled out Acute hypoxemic respiratory failure Generalized weakness and deconditioning Hyponatremia, SIADH is suspected but also secondary to hyperglycemia Acute COPD exacerbation Hospital course This is a pleasant 70-year-old male who was recently admitted with altered mental status and per the acute delirium. Patient was recently just discharged for severe hyponatremia. Patient was evaluated by physical therapy recommending subacute rehab although patient refused at that time and wanted to go home and Homecare was being arranged. Per patient continued to be confused and more altered and so was brought back to the hospital for further evaluation. Neurology and oncology been consulted . As well as infectious disease team, pulmonary team. Patient was found to have extensive bilateral pneumonia versus lymphangitic metastases, mainly to the left lung with right upper lobe lung mass secondary to small cell lung cancer. Patient was treated with antibiotics Zyvox and Zosyn as well as Solu-Medrol and hydration and patient hypoxia significantly improved as well as his symptoms, on the discharge time patient does not need any oxygen and actually he did not qualify to any home oxygen. Patient was cleared for discharge by all consultants including ID team on 7 more days of Zyvox and Avelox, also on tapered prednisone. Cleared for discharge by pulmonary team, oncology team. Patient also placed on insulin for his hyperglycemia. Patient will need to follow up with oncologist Dr. dias as an outpatient Patient remained stable over the last 3-4 days pending the placement, today approval was obtained by his medical insurance provider and he was accepted to go to [facility] for inpatient rehab Problems and management plan were discussed with the patient and he verbalized understanding and acceptance Patient was found stable and can be discharged to [facility] for rehab and guarded prognosis however he needs follow-up as an outpatient. Patient was [facility] and patient agrees Patient has an appointment with Clare from oncology team on this coming Friday 05/26 at the next Monday on 06/[address] Dias Physical exam -Gen: patient is a AAOx3, no distress. Generally weak CVS: S1-S2, RRR, no murmur Lungs: B/L CTA, no wheezing Abdomen: soft, no distention, no tenderness, positive bowel sounds Extremity: no leg edema or induration Time spent more than 35 minutes Patient Condition at Discharge: Serious Plan - Discharge Summary New Discharge Prescriptions: New Folic Acid 1 mg PO DAILY #30 tab predniSONE 10 mg PO DIRECTED #18 tab Omeprazole [PriLOSEC] 20 mg PO AC-BID #60 cap Albuterol Inhaler [Ventolin Hfa Inhaler] 1 puff INHALATION RT-TID PRN #8 gm PRN Reason: Shortness Of Breath Or Wheezing metFORMIN HCL 250 mg PO BID #30 tablet Moxifloxacin HCl [Avelox] 400 mg PO DAILY 7 Days #7 tablet Tamsulosin HCl [Flomax] 0.4 mg PO DAILY 14 Days #14 capsule Linezolid [Zyvox] 600 mg PO Q12HR 7 Days #14 tab Continue Carboxymethylcellulose Sodium [Refresh Tears] 1 drop BOTH EYES DAILY PRN PRN Reason: DRY EYES Ondansetron [Zofran] 4 mg PO Q4H PRN PRN Reason: Nausea Sodium Chloride Tab 1 gm PO DAILY 30 Days #30 tablet OLANZapine [ZyPREXA] 2.5 mg PO DIRECTED Leg Cramps 1 tab PO DAILY PRN PRN Reason: LEG CRAMPS dexAMETHasone ORAL [Hexadrol] 1 mg PO DAILY Discharge Medication List Carboxymethylcellulose Sodium [Refresh Tears] 1 drop BOTH EYES DAILY PRN 03/26/21 [History] Leg Cramps 1 tab PO DAILY PRN 04/30/21 [History] OLANZapine [ZyPREXA] 2.5 mg PO DIRECTED 04/30/21 [History] Ondansetron [Zofran] 4 mg PO Q4H PRN 04/30/21 [History] Sodium Chloride Tab 1 gm PO DAILY 30 Days #30 tablet 05/04/21 [Rx] dexAMETHasone ORAL [Hexadrol] 1 mg PO DAILY 05/06/21 [History] Albuterol Inhaler [Ventolin Hfa Inhaler] 1 puff INHALATION RT-TID PRN #8 gm 05/21/21 [Rx] Folic Acid 1 mg PO DAILY #30 tab 05/21/21 [Rx] Linezolid [Zyvox] 600 mg PO Q12HR 7 Days #14 tab 05/21/21 [Rx] Moxifloxacin HCl [Avelox] 400 mg PO DAILY 7 Days #7 tablet 05/21/21 [Rx] Omeprazole [PriLOSEC] 20 mg PO AC-BID #60 cap 05/21/21 [Rx] Tamsulosin HCl [Flomax] 0.4 mg PO DAILY 14 Days #14 capsule 05/21/21 [Rx] metFORMIN HCL 250 mg PO BID #30 tablet 05/21/21 [Rx] predniSONE 10 mg PO DIRECTED #18 tab 05/21/21 [Rx] Follow up Appointment(s)/Referral(s): Alfredo Dias MD [STAFF PHYSICIAN] - 06/02/21 10:00 am (THIS IS APPT FOR CHEMO. PLEASE GO [facility] address: at [address] [place] [address] ) Ed Maharaj MD [STAFF PHYSICIAN] - 05/26/21 8:45 am (with jolly [facility] MERCHANT at at [address] [facility] [place] ) Lupillo San MD [STAFF PHYSICIAN] - 1 Week (kidney doctor for your urinary retension) Pancho Watson MD [STAFF PHYSICIAN] - 2 Weeks (lung doctor ) [facility] [Primary Care Provider] - 1-2 days Activity/Diet/Wound Care/Special Instructions: low carbohydrate diet activity is restricted till you see your doctor We recommend to check her glucose 4 times a day, before each meal and at bedtime. Keep the results in a log book and bring to your doctor on your appointment date If your glucose less than 70 or more than 400 then called 911 and come to emergency room Patient is to continue with oral antibiotics as prescribed until finished Patient continue with Flomax daily and continue with indwelling Pantoja catheter for retention and will need follow-up with urology in 1 week Patient to follow-up with oncology in the outpatient setting in 1 week [facility] IS SETTING UP HOME CARE FOR YOU A HOSPITAL BED AND A WALKER HAVE BEEN ORDERED THROUGH [facility]. THEY WILL RUN IT THROUGH THE MEDICARE INSURANCE. THERE MAY BE A COPAY. PATIENT IS AWARE. Discharge Disposition: HOME WITH HOME HEALTH SERVICES
[2021-05-24 15:49] LABS: Lymphocytes # (M) 1.64 k/uL (1.0-4.8); Metamyelocytes # (M) 0.73 k/uL (0); Metamyelocytes % 4 %; Monocytes # (M) 1.46 k/uL (0-1.0); Myelocytes # (M) 0.18 k/uL (0); Myelocytes % 1 %; Neutrophils # (M) 14.38 k/uL (1.3-7.7); Neutrophils % (M) 79 %; Nucleated Red Blood Cells 0 /100 WBC (0-0); Total Cells Counted 200
[2021-05-24 15:50] LABS: Polychromasia Present
[2021-05-24 17:23] LABS: Glucose,Whole Blood 280 mg/dL (75-99)
--- NOTE | 2021-05-24 21:41 | P.PN ---
Subjective Please note date of service for this note is 05/23/2021, the original note was limited by mistake This is a pleasant 70-year-old male who was recently admitted with altered mental status and per the acute delirium. Patient was recently just discharged for severe hyponatremia. Patient was evaluated by physical therapy recommending subacute rehab although patient refused at that time and wanted to go home and Homecare was being arranged. Per patient continued to be confused and more altered and so was brought back to the hospital for further evaluation. Neurology and oncology been consulted and pending. Will also consult nephrology as patient sodium continues to be low and is currently 127. Patient does have an extensive past medical history of hypertension, osteoarthritis, EtOH abuse, and also small cell lung carcinoma and is currently receiving chemo immunotherapy treatments. Patient has been on high-dose steroids with a taper of Decadron per oncology services. Patient also recently had further workup with a bronchoscopy with biopsy in March that confirmed the small cell lung carcinoma and patient also underwent PET scan and findings were extensive stage IV disease. On admission to the ER labs were found to be a WBC of 1.3, hemoglobin 10.0, platelets were 100, sodium was 126, potassium 4.7, BUN 23, creatinine 0.33, magnesium 1.8, urinalysis is negative. Patient had a CT of the brain without contrast showing no evidence of intracranial hemorrhage mass effect or midline shift the white matter is grossly preserved and there is no acute intracranial abnormality noted. Patient was admitted for further evaluation and will also have PT/OT therapy evaluate the patient and will consult case management/nursing home social worker to evaluate for ECF. Consultations currently pending. 05/10/2021 Patient is seen and evaluated in follow-up today currently sitting up in the chair. Patient being followed closely by nephrology. Patient continues with confusion at times and recommend PT/OT evaluation for possible ECF. Oncology also following along with neurology and LS-spine MRI is ordered and pending at this time. Patient continues with low-grade fevers and is maintained on IV anti biotics and will continue. Infectious disease was consulted and pending. Patient received a dose of Samsca yesterday and sodium improved at 131 today and recommend continue with fluid restrictions and will repeat labs. 05/17/2021 Patient is seen in follow up and continues in the ICU with pulmonary, oncology, and ID following. Patient is continued on Zosyn and Vanco and will continue. WBC trending down and is 17 today. Patient is afebrile. Patient continues on high flow airvo with settings of 60/85 abd continue to wean FI02 as tolerated. Encouraged increased activity as tolerated and continue with PT/OT. Oncology following and current treatment on hold until respiratory status improves. Patient also continued on IV steroids and breathing inhalational treatments and will continue. 05/18/2021 Patient is seen and evaluated in follow-up continues to be closely monitored in the ICU with multiple medical consultations following. WBC elevated at 24.2 hemoglobin is stable at 8.2. Sodium is stable at 134 with nephrology following. Recommend continue with fluid restrictions. Patient continues on high flow airvo 60/60 and slowly weaning as tolerated. Patient to continue with anti biotic therapy with infectious disease following closely as well. Per nursing staff patient was having some urinary retention and straight catheter over 1100 output. Continue to monitor and bladder scan as needed and is continuing to retain may insert indwelling Pantoja catheter. Oncology, pulmonary, infectious disease following. Chest x-ray today shows continued left lung diffuse edema and/or infiltrates on background chronic emphysematous change in known right upper lung neoplasm left lung findings minimally improved from previous x-ray. Follow-up CT and MRI of the brain are negative with oncology following. Recommend holding current oncology treatment until improvement in current resp iratory status. Continue to wean FiO2 as tolerated 05/19/2021 Patient is seen today and there is a long-time fellow coworker and friend visiting at the bedside. Patient continues currently on 8L HF NC and tolerating and needs continuous reminder to leave oxygen tubing on. Patient continues to desat quickly. Patient sodium stable at 133. Multiple medical consultations following. Patient in good spirits. Eating and tolerating diet. Blood sugars mildly elevated and will adjust sliding scale. WBC remains elevated. Patient is afebrile. Patient to continue on IV antibiotics and ID following. Patient denies chest pain or shortness of breath. Patient less winded during conversation. PT/OT daily. Encourage increase activity. Subjective: 05/20/2021 This is a pleasant 70 years old male with evidence of right upper lung mass secondary to advanced small cell lung cancer with hilar lymphadenopathy and extensive bilateral infiltrate, more on the left side suspicious for pneumonia and possible lymphangitic metastases more on the left side Patient is awake and alert but he still have difficulty breathing with exertion more than with rest, he is able to talk with short sentences., Oxygen req uirement improvement from 10 down to 6 L per minute today.leukocytosis of 22,000, hemoglobin 8.8, sodium 1:30, glucose 275-300+ Patient currently kept on Zyvox, Zosyn, Solu-Medrol 60 mg of normal saline 50 mL/h. I discussed the case with case fitter/psychosocial rehabilitation counselor Jhonatan, patient does not want to go to rehab and he is a from [place] and is going to need oxygen upon discharge. 05/21/2021 Patient breathing significantly improved and currently he is on room air, he does not qualify for home oxygen. He denies any other symptoms and looks like medically his improvement and he can be discharged as he is hemodynamically stable and symptoms improved. In the morning he agreed for rehab and then change his mind to go home. However it looks like he change his mind again and he may consider it. Patient is medically stable for discharge pending placement related to his generalized weakness. Discontinue IV Solu-Medrol and start prednisone taper. Discontinue insulin and start metformin 250 twice a day, his hemoglobin A1c high 7.4% on admission. Discussed the case with infectious disease, he will be discharged on 7 days of Zyvox and Avelox 05/22/2021 Patient is doing well clinically, currently is on 2 L/m of oxygen however he does not qualify for home oxygen upon evaluation No other new complaint Patient is pending placement to subacute rehab and I discussed the case with psychosocial rehabilitation counselor Chelsea today, patient has to wait till Monday, other than that he is medically stable for discharge Discontinue Pantoja catheter today and check postvoid residual, discussed with bed side nurse Marjorie 05/23/2021 pt is doing well, pending placement Objective - Vital Signs Vital signs: Vital Signs Temp 98.6 F 05/24/21 11:53 Pulse 100 05/24/21 15:24 Resp 18 05/24/21 11:53 BP 122/69 05/24/21 11:53 Pulse Ox 96 05/24/21 11:53 Intake & Output 05/23/21 05/24/21 05/24/21 18:59 06:59 18:59 Intake Total 240 410 Output Total 700 Balance 240 -290 Intake: IV 100 Piperacillin-Tazobactam 3 100 .375 gm In Sodium Chloride 0.9% 100 ml @ 25 mls/hr IVPB Q8HR [facility] Rx# :[id number] Oral 240 310 Output: Urine 700 Other: Voiding Method Indwelling Catheter Indwelling Catheter Indwelling Catheter # Bowel Movements 2 - Exam GENERAL: The patient is alert and oriented x3, not in any acute distress. Well developed, well nourished. HEENT: Pupils are round and equally reacting to light. EOMI. No scleral icterus. No conjunctival pallor. Normocephalic, atraumatic. No pharyngeal erythema. No thyromegaly. CARDIOVASCULAR: S1 and S2 present. No murmurs, rubs, or gallops. -PULMONARY: Chest is clear to auscultation, no wheezing or crackles. Decreased air entry on both sides ABDOMEN: Soft, nontender, nondistended, normoactive bowel sounds. No palpable organomegaly. MUSCULOSKELETAL: No joint swelling or deformity. EXTREMITIES: No cyanosis, clubbing, or pedal edema. NEUROLOGICAL: Gross neurological examination did not reveal any focal deficits. SKIN: No rashes. no petechiae. - Labs CBC & Chem 7: 05/24/21 11:17 05/23/21 06:56 Labs: Abnormal Lab Results - Last 24 Hours (Table) 05/23/21 05/24/21 05/24/21 Range/Units 17:17 11:17 11:51 WBC 18.2 H (3.8-10.6) k/uL RBC 3.21 L (4.30-5.90) m/uL Hgb 10.2 L (13.0-17.5) gm/dL Hct 31.4 L (39.0-53.0) % RDW 19.3 H (11.5-15.5) % Plt Count 806 H (150-450) k/uL POC Glucose (mg/dL) 172 H 174 H (75-99) mg/dL Assessment and Plan Assessment: Small cell lung cancer, advanced disease with right upper lobe lung mass Dehiscence of bilateral infiltrate mostly secondary to pneumonia with Ventritex metastasis cannot be ruled out Acute hypoxemic respiratory failure Generalized weakness and deconditioning Hyponatremia, SIADH is suspected but also secondary to hyperglycemia Acute COPD exacerbation Plan: This is a pleasant 70 years old male who presents with lung cancer, pneumonia and COPD Continue with antibiotics per ID team, currently on Zyvox and Zosyn. DC on oral antibiotic Sutures steroids to tapered prednisone change Levemir to metformin 250 twice a day Several consultants on the case with and ID team, pulmonary and oncology/hematology Discontinue Pantoja catheter Labs and medication were reviewed.. Continue same treatment. Continue with symptomatic treatment. Resume home medication. Monitor lytes and vitals. DVT and GI prophylaxis. Further recommendations as per clinical course of the patient DVT prophylaxis: Subcutaneous heparin GI Prophylaxis: Ppi PT/OT: Patient is considering rehab Patient medically stable for discharge pending placement
== END 2021-05-24 18:50 | DRG 871 ==
LOC: EC 17:43 → 5NMEDONC 19:45 → 2SICU 05-14 17:37 → 5NMEDONC 05-18 15:07
PROVIDERS: ADMIT Hospitalist; ATTEND Hospitalist
PROC: 5A0955A Assistance with Respiratory Ventilation, Greater than 96 Consecutive Hours, High Flow/Velocity Cannula (ICD-10-PCS; principal; 2021-05-14)
DX: A41.9 Sepsis, unspecified organism (principal); D61.810 Antineoplastic chemotherapy induced pancytopenia; J15.6 Pneumonia due to other Gram-negative bacteria; J96.21 Acute and chronic respiratory failure with hypoxia; C34.01 Malignant neoplasm of right main bronchus; C34.11 Malignant neoplasm of upper lobe, right bronchus or lung; D84.9 Immunodeficiency, unspecified; E22.2 Syndrome of inappropriate secretion of antidiuretic hormone; I87.1 Compression of vein; G93.40 Encephalopathy, unspecified; E83.42 Hypomagnesemia; E87.6 Hypokalemia; F17.210 Nicotine dependence, cigarettes, uncomplicated; Z20.822 Contact with and (suspected) exposure to COVID-19; I10 Essential (primary) hypertension; J43.9 Emphysema, unspecified; M21.372 Foot drop, left foot; M48.02 Spinal stenosis, cervical region; M51.37 Other intervertebral disc degeneration, lumbosacral region; R50.81 Fever presenting with conditions classified elsewhere; D70.9 Neutropenia, unspecified; M47.819 Spondylosis without myelopathy or radiculopathy, site unspecified; R56.9 Unspecified convulsions; T45.1X5A Adverse effect of antineoplastic and immunosuppressive drugs, initial encounter; Z79.84 Long term (current) use of oral hypoglycemic drugs; Z79.899 Other long term (current) drug therapy; Z80.0 Family history of malignant neoplasm of digestive organs; Z80.52 Family history of malignant neoplasm of bladder; Z86.15 Personal history of latent tuberculosis infection; R26.9 Unspecified abnormalities of gait and mobility; B37.9 Candidiasis, unspecified; R73.9 Hyperglycemia, unspecified
CPT/HCPCS: 36415; 70450; 70553; 71045; 71046; 71275; 72156; 72158; 80048; 80053; 80202; 81003; 82306; 83036; 83735; 83930; 83935; 84132; 84145; 84300; 84443; 85025; 85379; 87040; 87086; 87636; 93970; 94640; 94760; 99285